=== PATIENT | female | born 1970 | race Caucasian/White ===

== ENCOUNTER 2022-11-30 16:57 | Emergency (ER) | payer OTHER, SELFPAY ==
[2022-11-30 17:12] VITALS: BP 126/72; PULSE 74; RESP 16; TEMP 36.7; O2SAT 99; BMI 22.4
--- NOTE | 2022-11-30 19:15 | ED.LOWEXI1 ---
HPI - Extremity Injury (Lower) General Chief Complaint: Extremity Injury, Lower Stated Complaint: POST OP ISSUE LT FOOT Time Seen by Provider: 11/30/22 19:09 Source: patient Mode of arrival: Wheelchair History of Present Illness HPI Narrative: the patient presenting to us with increasing swelling in the left foot for the past few days she mentioned that there was no new injury but she have a history of old fracture and surgery done on that foot, she will plan to have a CAT scan as outpatient but the patient has been having increasing pain and she has not been able to put weight in her foot for the last few days She'll also have some chills and she is complaining of pain in her foot with no other concerns Review of systems positive for nausea that according to the patient happened to be time to have foot pain Related Data Home Medications Medication Instructions Recorded Confirmed alendronate 70 mg tablet 70 mg PO DAILY 11/30/22 11/30/22 cholecalciferol (vitamin D3) 25 3,000 unit PO DAILY 11/30/22 11/30/22 mcg (1,000 unit) capsule escitalopram oxalate 20 mg tablet 20 mg PO DAILY 11/30/22 11/30/22 gabapentin 100 mg capsule 200 mg PO TID 11/30/22 11/30/22 hydroxyzine pamoate 25 mg capsule 25 mg PO Q8H PRN anxiety 11/30/22 11/30/22 meloxicam 15 mg tablet 15 mg PO DAILY 11/30/22 11/30/22 pregabalin 100 mg capsule 100 mg PO BID 11/30/22 11/30/22 trazodone 50 mg tablet 50 mg PO .hs 11/30/22 11/30/22 Previous Rx's Medication Instructions Recorded meloxicam 15 mg tablet 15 mg PO DAILY PRN pain #10 tabs 11/30/22 sulfamethoxazole 800 1 tab PO BID 14 days #28 tabs 11/30/22 mg-trimethoprim 160 mg tablet (Bactrim DS) Allergies Allergy/AdvReac Type Severity Reaction Status Date / Time Penicillins Allergy Severe Verified 11/30/22 17:11 Review of Systems ROS Status of ROS 10 or more systems reviewed and unremarkable except as noted in history and below Exam Narrative Exam Narrative: Nurses notes and vital signs reviewed and patient is not hypoxic. General: Well-appearing and in no apparent distress. Skin: Warm, dry, no pallor noted. No rash. Head: Normocephalic, atraumatic. Neck: Supple, non-tender. Eye: Pupils are equal, round and EOMI. No scleral icterus. Ears, Nose, Mouth, and Throat: TM are clear, no nasal mucosal hypertrophy. Oral mucosa is moist, no posterior oropharynx erythema, uvula is mid-line Cardiovascular: Regular Rate and Rhythm without murmur, gallop or rub. Respiratory: No accessory muscle use or respiratory distress. Lungs are clear to auscultation, no wheezing, rales or rhonchi Chest Wall: no tenderness Back: No midline thoracic or lumbar vertebral tenderness. No CVA tenderness Musculoskeletal: normal ROM,the patient have swelling in the medial aspect of the left foot and the scar at the 1st metatarsal bone that showing no redness or hotness but there is significant swelling medially and there is no opening except for the scar that is healing there's tenderness on palpation the patient have a normal Refill in the foot and no vascular injury GI: Abdomen is soft, non-distended. Normal bowel sounds. No masses appreciated. No tenderness to palpation. No rebound, guarding, or rigidity noted. Neurological: A&O x4. No cranial nerve dysfunction observed. No truncal ataxia. Moves all extremities. Sensation intact. Psychiatric: Cooperative and interactive. Normal mood and affect. Constitutional Vital Signs - 24 hr 11/30/22 17:12 Temperature 98.0 F Pulse Rate [Monitor] 74 Respiratory Rate 16 Blood Pressure [Right Arm] 126/72 H Pulse Oximetry 99 Oxygen Delivery Method Room Air Course Vital Signs Vital signs: Vital Signs Temperature 98.0 F 11/30/22 17:12 Pulse Rate 74 11/30/22 17:12 Respiratory Rate 16 11/30/22 17:12 Blood Pressure 126/72 H 11/30/22 17:12 Pulse Oximetry 99 11/30/22 17:12 Oxygen Delivery Method Room Air 11/30/22 17:12 Temperature 98.0 F 11/30/22 17:12 Pulse Rate 74 11/30/22 17:12 Respiratory Rate 16 11/30/22 17:12 Blood Pressure 126/72 H 11/30/22 17:12 Pulse Oximetry 99 11/30/22 17:12 Oxygen Delivery Method Room Air 11/30/22 17:12 MDM - Extremity Injury (Lower) MDM Narrative Medical decision making narrative: patient's CBC and chemistry significant pathology there was a concern for possible abscess or cellulitis with the patient presentation and her CT is positive for cellulitis the patient was started on Bactrim She have a history of penicillin ALLERGY She also was provided with crutches in addition to rest and elevation of the left foot with Warner wrap and the Mobic for pain The patient is to followup with primary care physician in next 2-3 days or to return to the emergency department should any of the signs or symptoms worsen or new symptoms develop. The patient agrees with the following Diagnosis and Treatment plan and the patient will be discharged home. Discharge Plan Discharge Chief Complaint: Extremity Injury, Lower Clinical Impression: Cellulitis of foot Time of Disposition Decision: 21:21 Prescriptions / Home Meds: New meloxicam 15 mg tablet 15 mg PO DAILY PRN (Reason: pain) Qty: 10 0RF sulfamethoxazole-trimethoprim [Bactrim DS] 800-160 mg tablet 1 tab PO BID 14 Days Qty: 28 0RF No Action alendronate 70 mg tablet 70 mg PO DAILY cholecalciferol (vitamin D3) 25 mcg (1,000 unit) capsule 3,000 unit PO DAILY escitalopram oxalate 20 mg tablet 20 mg PO DAILY gabapentin 100 mg capsule 200 mg PO TID hydroxyzine pamoate 25 mg capsule 25 mg PO Q8H PRN (Reason: anxiety) meloxicam 15 mg tablet 15 mg PO DAILY pregabalin 100 mg capsule 100 mg PO BID trazodone 50 mg tablet 50 mg PO .hs Instructions: Cellulitis (ED) Stand Alone Forms: Portal Instructions Referrals: CHRISTIN GRULLON [Primary Care Provider] - 1 week
--- NOTE | 2022-11-30 19:17 | CT_ITS ---
The [address] [address] Patient Name: JOSH SOLIS MRN: [id number] date: 1970 Sex: F Assigned Patient Location: ER Current Patient Location: ER Accession/Order Number: [id number] Exam Date: 11/30/2022 19:45 Report Date: 11/30/2022 20:45 At the request of: MARIALUISA BREWER Procedure: CT foot LT wo con EXAM: CT foot LT wo con COMPARISON: 07/21/2022, 07/04/2022. CLINICAL INDICATION: left foot swelling TECHNIQUE: Multiplanar CT images of the left foot without contrast. Dose reduction techniques were achieved by using automated exposure control and/or adjustment of mA and/or kV according to patient size and/or use of iterative reconstruction technique. FINDINGS: Status post prior midfoot/first through third TMT fusion with intact appearing hardware without evidence of complication and with fusion of the second and third TMT joints and partial fusion of the first TMT joint. Osteopenia. No CT evidence of acute osseous abnormality. Partially visualized lucent bony lesion again seen in the distal tibia without definite aggressive features although with apparent chronic cortical loss anteriorly. This appears to possibly relate to chronic postsurgical change and may have been the site of prior hardware which was intervally removed. Mild dorsal foot subcutaneous edema, may suggest cellulitis. No fluid collection. 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 IMPRESSION: No CT evidence of acute osseous abnormality. Mild dorsal foot subcutaneous edema, may suggest cellulitis. No fluid collection. Postsurgical changes described above. Osteopenia. Electronically authenticated by: RUSTY BELL Date: 11/30/2022 20:45
[2022-11-30 19:45] LABS: Basophils Absolute Auto 0.1 10^3/uL (0.0-0.1); Basophils Percent Auto 1.2 % (0.2-2.0); Eosinophils Absolute Auto 0.2 10^3/uL (0.0-0.7); Eosinophils Percent Auto 2.6 % (0.9-7.0); Hematocrit 39.8 % (36.0-48.0); Hemoglobin 13.2 g/dL (12.0-16.0); Immature Granulocytes Abs Auto 0.02 10^3/uL (0.00-0.03); Immature Granulocytes Pct Auto 0.2 % (0.0-0.5); Lymphocytes Absolute Auto 1.7 10^3/uL (1.2-3.8); Lymphocytes Percent Auto 21.1 % (20.5-60.0); Mean Corpuscular HGB Conc 33.2 g/dL (29.9-35.2); Mean Corpuscular Volume 87.5 fL (81.0-99.0); Mean Platelet Volume 9.9 fL (9.5-13.5); Monocytes Absolute Auto 0.7 10^3/uL (0.3-0.8); Monocytes Percent Auto 8.3 % (1.7-12.0); Neutrophils Absolute Auto 5.3 10^3/uL (1.4-6.5); Neutrophils Percent Auto 66.6 % (43.0-75.0); Platelet Count 360 10^3/uL (150-450); Red Blood Count 4.55 10^6/uL (4.20-5.40); Red Cell Distribution Width 13.1 % (11.0-15.0)
[2022-11-30] MEDS: KETOROLAC TROMETHAMINE 30 MG/ML VIAL 15 MG IVP (19:49)
[2022-11-30] MEDS: ONDANSETRON 4 MG RAPDIS TABLET SL (19:49)
[2022-11-30 20:10] LABS: Alanine Aminotransferase 13 U/L (14-59); Albumin Level 3.8 g/dL (3.4-5.0); Alkaline Phosphatase 136 U/L (46-116); Aspartate Amino Transferase 11 U/L (15-37); Bilirubin Total 0.2 mg/dL (0.2-1.0); Calcium 9.4 mg/dL (8.5-10.1); Chloride 104 mmol/L (98-107); Estimated GFR (African America >60 (>=60); Estimated GFR (Non-African Ame >60 (>=60); Globulin 3.8 g/dL; Glucose 95 mg/dL (74-106); Sodium 139 mmol/L (136-145); Total Protein 7.6 g/dL (6.4-8.2)
[2022-11-30] MEDS: SULFAMETHOXAZOLE/TRIMETHOPRIM 800-160 MG TABLET 1 TAB PO (21:53)
== END 2022-11-30 21:59 | disposition home or self-care (01) ==
PROVIDERS: Emergency Provider Emergency Medicine; PCP Family Medicine
DX: L03.116 Cellulitis of left lower limb (principal); Z79.899 Other long term (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
CPT/HCPCS: 36415; 73700; 80053; 85025; 96374; 99284

== ENCOUNTER 2022-12-26 07:40 | Outpatient (OUT) | payer OTHER, SELFPAY ==
--- NOTE | 2022-12-26 08:02 | ECG_ITS ---
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
--- NOTE | 2022-12-26 08:31 | XR_ITS ---
The [address] [address] Patient Name: JOSH SOLIS MRN: [id number] date: 1970 Sex: F Assigned Patient Location: [facility] Current Patient Location: [facility] Accession/Order Number: [id number] Exam Date: 12/26/2022 08:43 Report Date: 12/26/2022 09:05 At the request of: CINDY RODRIGEZ Procedure: XR chest 2V Exam: Radiographs: XR chest 2V Reason for exam: COPD Comparison: Chest x-ray dated 02/04/2020 IMPRESSION: Right apical and upper lung small amount scarring. Hyperinflation both lungs with possible emphysema. Remainder of the chest is unremarkable. Electronically authenticated by: ANTONIO FORD Date: 12/26/2022 09:05
--- NOTE | 2022-12-26 08:51 | P.GSHP_ITS ---
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 Please see HPI from Dr. Clark dated 12/09/2022. Review of Systems ROS Narrative REVIEW OF SYSTEMS: Negative except as stated in HPI, ten or more systems reviewed. Constitutional: No fever , chills, weakness ENT: No sore throat or epistaxis Cardiovascular: No edema, chest pain, or palpitations Respiratory: Admits to dyspnea on exertion Gastrointestinal: No abdominal pain, constipation, diarrhea, or vomiting Genitourinary: No dysuria or hematuria Neurological: No numbness, tingling, weakness, or headache Psychiatric: No mood changes [facility] Medical History (Updated 12/26/22 @ 08:44 by Indigo Erazo NP) (2007) (2007) Surgical History (Updated 12/26/22 @ 08:25 by Indigo Erazo NP) Family History (Updated 12/26/22 @ 08:25 by Indigo Erazo NP) Other Family history of diabetes mellitus Social History (Updated 12/26/22 @ 08:21 by Indigo Erazo NP) Within the past year, how often did you have a drink containing alcohol: never Score interpretation: A score less than 3 is consistent with normal alcohol consumption. Smoking status: Current every day smoker What tobacco products do you use: cigarettes Pack-years instructions: Please document either packs per day or cigarettes per day in order for pack years to calculate correctly. If using both packs per day and cigarettes per day, please make sure that they denote the same thing. If they differ, pack- years will calculate based on packs per day. Packs Per Day Cigarettes Per Day 1/4 of a pack 5 1/2 a pack 10 3/4 of a pack 15 1 pack 20 1.5 pack 30 2 packs 40 2.5 packs 50 3 packs 60 Packs per day: 1 Years smoked: 24 Smoking pack-years: 24.00 Non-prescribed substance use: denies use Highest level of school completed/degree received: high school graduate Meds Home Medications and Allergies Home Medications Medication Instructions Recorded Confirmed Type alendronate 70 mg tablet 70 mg PO QWEEK 11/30/22 12/26/22 History cholecalciferol (vitamin D3) 25 3,000 unit PO DAILY 11/30/22 12/26/22 History mcg (1,000 unit) capsule escitalopram oxalate 20 mg tablet 20 mg PO DAILY 11/30/22 12/26/22 History hydroxyzine pamoate 25 mg capsule 25 mg PO Q8H PRN anxiety 11/30/22 12/26/22 History meloxicam 15 mg tablet 15 mg PO DAILY 11/30/22 12/26/22 History pregabalin 100 mg capsule 100 mg PO BID 11/30/22 12/26/22 History trazodone 50 mg tablet 50 mg PO .hs 11/30/22 12/26/22 History Allergies Allergy/AdvReac Type Severity Reaction Status Date / Time Penicillins Allergy Severe Unknown Verified 12/26/22 08:18 Exam Narrative Exam Narrative: Constitutional: Awake, alert, comfortable, well-appearing, nontoxic, interactive, vital signs as charted Head: Normocephalic, atraumatic Neck: Supple, normal appearance, normal range of motion, no meningeal signs, no lymphadenopathy Respiratory: No respiratory distress, breath sounds clear Cardiovascular: Regular rate and rhythm, strong and regular heart tones Psychiatric: Oriented ?3, normal affect Assessment and Plan Assessment and Plan (1) Arthritis of left foot: (2) Pseudarthrosis after fusion or arthrodesis: Plan Excision of left 1st tarsometatarsal joint nonunion with removal of hardware and revision of fusion scheduled with Dr. Clark 01/01/2023.
== END 2022-12-26 07:41 | disposition home or self-care (01) ==
LOC: PST 07:40
PROVIDERS: PCP Family Medicine; Visit Provider Podiatrist Foot & Ankle Surgery
DX: Z01.818 Encounter for other preprocedural examination (principal); Z01.810 Encounter for preprocedural cardiovascular examination; Z01.811 Encounter for preprocedural respiratory examination; M19.072 Primary osteoarthritis, left ankle and foot; M96.0 Pseudarthrosis after fusion or arthrodesis; J44.9 Chronic obstructive pulmonary disease, unspecified
CPT/HCPCS: 71046; 93005; G0463

== ENCOUNTER 2023-01-01 07:42 | Day surgery (SDC) | payer OTHER, SELFPAY ==
[2022-12-26 08:22] VITALS: BP 114/73; PULSE 60; RESP 16; TEMP 36.2; O2SAT 98; BMI 23.2
[2023-01-01] VITALS (16 sets, daily range): BP systolic 102–132; BP diastolic 60–79; PULSE 61–80; RESP 16–24; TEMP 36–36.9; O2SAT 91–99; BMI 22.8; BMI 23.5
[2023-01-01 07:51] LABS: Basophils Absolute Auto 0.1 10^3/uL (0.0-0.1); Basophils Percent Auto 0.9 % (0.2-2.0); Eosinophils Absolute Auto 0.2 10^3/uL (0.0-0.7); Eosinophils Percent Auto 2.3 % (0.9-7.0); Hematocrit 41.1 % (36.0-48.0); Hemoglobin 13.9 g/dL (12.0-16.0); Immature Granulocytes Abs Auto 0.03 10^3/uL (0.00-0.03); Immature Granulocytes Pct Auto 0.3 % (0.0-0.5); Lymphocytes Percent Auto 19.9 % (20.5-60.0); Mean Corpuscular HGB Conc 33.8 g/dL (29.9-35.2); Mean Corpuscular Hemoglobin 30.3 pg (26.7-34.0); Mean Corpuscular Volume 89.5 fL (81.0-99.0); Mean Platelet Volume 9.8 fL (9.5-13.5); Monocytes Absolute Auto 0.8 10^3/uL (0.3-0.8); Monocytes Percent Auto 8.1 % (1.7-12.0); Neutrophils Absolute Auto 6.8 10^3/uL (1.4-6.5); Neutrophils Percent Auto 68.5 % (43.0-75.0); Platelet Count 336 10^3/uL (150-450); Red Blood Count 4.59 10^6/uL (4.20-5.40); Red Cell Distribution Width 13.6 % (11.0-15.0); White Blood Count 9.9 10^3/uL (4.0-11.0)
[2023-01-01 08:00] LABS: Glucometer 102 mg/dL (74-106)
[2023-01-01] MEDS: LACTATED RINGER'S SOLUTION 1,000 ML 50 ML IV (08:16)
--- NOTE | 2023-01-01 09:53 | PC.NURSE ---
time out completed as documented. 2L O2 via nasal cannula applied per policy,pt then positioned per anesthesia. saphineous block began 937 and was completed at 943 pt then repositioned and popliteal block began at 944 and ended at 949. pt tolerated procedure well,vitals monitored throughout procedure and will be monitored until taken back to the OR. bed in lowest position with siderails up and call light within reach.
[2023-01-01] MEDS: PREGABALIN 75 MG CAPSULE 150 MG PO (10:08)
[2023-01-01] MEDS: CLINDAMYCIN PHOSPHATE/D5W 900 MG/50 ML PIGGYBACK 100 MG IV (10:55)
--- NOTE | 2023-01-01 12:13 | XR_ITS ---
The [address] [address] Patient Name: JOSH SOLIS MRN: [id number] date: 1970 Sex: F Assigned Patient Location: [facility] Current Patient Location: [facility] Accession/Order Number: [id number] Exam Date: 01/01/2023 12:13 Report Date: 01/01/2023 14:24 At the request of: CINDY RODRIGEZ Procedure: XR foot LT 2V PROCEDURE: XR foot LT 2V HISTORY: LEFT 1ST TMJ REMOVAL OF HARDWARE COMPARISON: XR foot left 07/21/2022 FINDINGS: BONES:Removal and replacement of 2 screws fixing the first tarsal-metatarsal joint. Previously placed screw securing the second third tarsal-metatarsal joints. SOFT TISSUES:Expected intraoperative findings. EFFUSION:None visible. OTHER: Negative. XR/XR foot LT 2V IMPRESSION: 1. Revision of first tarsal-metatarsal joint hardware. Electronically authenticated by: HUNG ARREDONDO Date: 01/01/2023 14:24
[2023-01-01 13:27] LABS: Glucometer 134 mg/dL (74-106)
--- NOTE | 2023-01-01 13:35 | PC.NURSE ---
pATIENT ALERT AND AWAKE. DENIES ANY PAIN. TOES ARE PINK AND WARM , BUT PATIENT CAN NOT FEEL THEM
--- NOTE | 2023-01-01 13:47 | XR_ITS ---
The [address] [address] Patient Name: JOSH SOLIS MRN: [id number] date: 1970 Sex: F Assigned Patient Location: [facility] Current Patient Location: [facility] Accession/Order Number: [id number] Exam Date: 01/01/2023 13:40 Report Date: 01/01/2023 14:22 At the request of: ANTONIO HERRERA Procedure: XR foot LT min 3V PROCEDURE: XR foot LT min 3V HISTORY: POST-OP ; hardware removal COMPARISON: XR foot left 07/21/2022 FINDINGS: BONES:Interval removal and replacement of the 2 screws fixing the first tarsal-metatarsal joint. Stable fusion of the second third tarsal-metatarsal joints. SOFT TISSUES:No visible soft tissue swelling. EFFUSION:None visible. OTHER: Images were obtained through cast material which limits evaluation. XR/XR foot LT min 3V IMPRESSION: 1. Revision of first tarsal-metatarsal joint hardware. Electronically authenticated by: HUNG ARREDONDO Date: 01/01/2023 14:22
--- NOTE | 2023-01-01 13:47 | P.ORON_ITS ---
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 Bone was significantly soft. No signs of infection PROCEDURE IN DETAIL: Patient was identified in pre op and consent was reviewed. Correct side and site were identified and marked. Pre-op antibiotics were started. Patient was brought to OR suite and place on table in a supine position. General anesthesia was administered. Tourniquet applied. Operative extremity was prepped and draped in usual sterile fashion. Formal time-out was performed and the foot/ankle were exsanguinated and tourniquet inflated. Incision was placed over the medial aspect of the 1st Tarsometatarsal joint. Combination sharp and blunt dissection gained access to the 1st tarsometatarsal joint. The two screws traversing the joint were removed with appropriate screwdriver. The joint was then accessed utilizing an osteotome to break a small area of bone over the dorsal aspect that was bridging. Once this small shelf of bone was removed the joint was then easily distracted noting intra-articular fibrous and fatty tissue with no further osseous fusion. All nonviable tissue was excised. Then the joint was prepared with osteotomes and rongeurs and curettes. 2 mL of bone allograft (sparc) packed into the joint. The joint was th en manually compressed and a guidewire was placed from plantar medial base of the 1st metatarsal into the cuneiforms. With attempt to place a 5.0 mm (vilex) screw the cortex of the metatarsal fractured so the guidewire and screw were removed. A new guidewire was placed from the dorsal medial aspect crossing the 1st tarsometatarsal joint into the cuneiforms while holding manual compression. A 5.0 mm (Vilex) headless cannulated screw was placed accordingly noted significant compression across the joint. Then a guidewire was placed from the dorsal medial aspect of the medial cuneiform traversing the joint and extending through the plantar lateral cortex of the 1st metatarsal base. Guidewires were placed under fluoroscopic guidance as was screw fixation. After fluoroscopy confirmed proper placement of the wire a 4.0 mm ([employer]) headless cannulated screw was placed accordingly spanning the joint to add additional stability. An additional 1 cc of bone allograft was packed into the hole created from the 1st screw placed after the surgical site was irrigated. Fluoroscopy again confirmed good bony apposition of the 1st tarsometatarsal joint and proper hardware placement/location. Incisions were closed in layers. in the tourniquet was dropped with a prompt hyperemic response. A dry sterile dressing consisting of Xeroform on the incisions followed by 4 x 4 gauze, ABDs, and Kerlix were applied. Multiple layers of cast padding were then applied to ensure all bony prominences were well-padded. A plaster posterior splint was then applied which was held in place by Warner wraps. Capillary refill time to all digits was evaluated and had appropriate response. POSTOPERATIVE PLAN: Transfer to med/surg under hospitalist's care NWB operative foot/ankle Ice and elevation Maria Victoria-op antibiotics, multimodal pain medication and DVT prophylaxis ordered Consults: physical therapy & social staff worker Estimated LOS 1-2 nights Will follow *NWB x 6-8 weeks Implants: see above Anesthesia: other (general & regional) Surgeon: Erik Clark Rag Room Supervisor: Speedy Brooks Estimated blood loss (mL): 10 Pathology: none sent Condition: stable Disposition: observation Preoperative Details Reason for procedure: patient is a 52-year-old female well known to my practice who underwent left midfoot fusion on 02/13/22. Subsequently she went hardware removal on 07/21/22. She continued to have pain which in part was secondary to nerve pain around the surgical sites and fibromyalgia but was having deep aching pain predominantly in the medial midfoot. 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 Given the fact that she was unable to bear weight comfortably she wished to proceed with surgical revision and I recommended excision of the nonunion removal of retained hardware and fusion of the 1st tarsometatarsal joint. She was educated on potential complications particularly infection and wound given this is her 3rd surgery within one year in the same location as well as nonunion/delayed union given the amount of disuse osteoporosis noted on x-ray and CT scan. Patient provided consent.
[2023-01-01] MEDS: ENOXAPARIN SODIUM 40 MG/0.4 ML SYRINGE SUBQ (17:32)
[2023-01-01] MEDS: 0.9 % SODIUM CHLORIDE 250 ML 10 ML IV (17:32)
[2023-01-01] MEDS: CLINDAMYCIN PHOSPHATE/D5W 600 MG/50 ML PIGGYBACK 100 MG IV (20:54)
[2023-01-01] MEDS: TRAZODONE HCL 50 MG TABLET PO (21:50)
[2023-01-02] MEDS: CLINDAMYCIN PHOSPHATE/D5W 600 MG/50 ML PIGGYBACK 100 MG IV ×2 (04:03→12:03)
[2023-01-02 06:00] VITALS: BP 108/64; PULSE 64; RESP 18; TEMP 36.6; O2SAT 93
[2023-01-02 06:21] VITALS: TEMP 36.6
[2023-01-02] MEDS: OXYCODONE HCL 5 MG TABLET 10 MG PO (06:21)
[2023-01-02 08:00] VITALS: RESP 18
--- NOTE | 2023-01-02 08:50 | CM.NOTE ---
Rounds made with Dr. Coreas, discussed discharge to home today with pt. PT will evaluate pt today and will follow for any discharge needs.
--- NOTE | 2023-01-02 09:12 | P.PN_ITS ---
Progress Note: Subjective Subjective Interval history: Asked to see patient for medical management. No complaints this morning. No chest pain no shortness of breath. Exam Constitutional Vital Signs, click to edit/add: Last Vital Signs Temp 97.8 F 01/02/23 06:21 Pulse 64 01/02/23 06:00 Resp 18 01/02/23 06:00 BP 108/64 01/02/23 06:00 Pulse Ox 93 L 01/02/23 06:00 O2 Del Method Room Air 01/02/23 06:00 Chest Common normals: inspection of chest normal Respiratory Common normals: normal respiratory effort, no retractions and clear to auscultation bilaterally Cardio Common normals: regular rate, regular rhythm and no murmurs GI Common normals: Normal to inspection, nondistended, normoactive bowel sounds present Progress Note: A&P Assessment and Plan (1) Arthritis of left foot: (2) Cellulitis of foot: Plan Podiatric surgery-see progress notes from cow rider Generalized anxiety-we will continue with home medications.
[2023-01-02] MEDS: ESCITALOPRAM 10 MG TABLET 20 MG PO (09:58)
[2023-01-02] MEDS: CHOLECALCIFEROL (VITAMIN D3) 25 MCG/1,000 UNITS TABLET 75 MCG PO (09:59)
[2023-01-02] MEDS: PREGABALIN 100 MG CAPSULE PO (09:59)
[2023-01-02] MEDS: MELOXICAM 7.5 MG TABLET 15 MG PO (09:59)
--- NOTE | 2023-01-02 10:07 | SWNOTE1 ---
SW met with pt to discuss dc needs. Pt lives at home with her . Pt had foot surgery she is NWB for 6-8 weeks. Pt does not have any stairs to go up and down. Pt has a walker, knee scooter, and bedside commode at home. Pt did voice she has been able to pivot while here at hospital. Pt does not have any concerns or needs for discharge at this time. SW to follow as needed.
[2023-01-02] MEDS: OXYCODONE HCL 15 MG TABLET PO (12:03)
--- NOTE | 2023-01-02 12:12 | PM.PN ---
Progress Note: Subjective Subjective Interval history: POD 1 s/p left 1st TMT fusion revision secondary to nonunion. Block has worn off and patient having minimal pain. She is requesting d/c. Denies n/v/f/c/sob/cp/calf pain Exam Narrative Exam Narrative: splint c/d/i able to wiggle toes LTS intact to toes No calf pain on squeeze Constitutional Vital Signs, click to edit/add: Last Vital Signs Temp 97.8 F 01/02/23 06:21 Pulse 64 01/02/23 06:00 Resp 18 01/02/23 08:00 BP 108/64 01/02/23 06:00 Pulse Ox 93 L 01/02/23 06:00 O2 Del Method Room Air 01/02/23 06:00 Progress Note: Objective Pulse Oximetry Attestation: I have reviewed the pertinent pulse oximetry results. Progress Note: A&P Assessment and Plan (1) Arthritis of left foot: Plan d/c home today NWB left foot f/u in my office next week prescriptions in chart for controlled medicine while noncontrolled medications sent to pharmacy
--- NOTE | 2023-01-02 14:13 | PC.NURSE ---
Per Dr. Clark and Dr. Coreas, patient is ready for discharge. Patient is being sent home with paper prescriptions of Lyrica and [place]. Patient voiced concerned about not going with a prescription for Lovenox. I attempted to page Dr. Clark and have not got a response. Patient is aware and states she will call his office Thursday.
== END 2023-01-02 14:15 | disposition home or self-care (01) ==
LOC: SURGOUT 09:16 → MS 14:38
PROVIDERS: Anesthesiology; PCP Family Medicine; Visit Provider Podiatrist Foot & Ankle Surgery
PROC: (CPT 1480; principal; 2023-01-01 09:30)
DX: M19.072 Primary osteoarthritis, left ankle and foot (principal); M96.0 Pseudarthrosis after fusion or arthrodesis; T84.84XA Pain due to internal orthopedic prosthetic devices, implants and grafts, initial encounter; M81.8 Other osteoporosis without current pathological fracture; M79.7 Fibromyalgia; F17.210 Nicotine dependence, cigarettes, uncomplicated; Z79.899 Other long term (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; F41.1 Generalized anxiety disorder
CPT/HCPCS: 20680; 28320; 28740; 36415; 64445; 64450; 73620; 73630; 76000; 76942; 82948; 85025; 96365; 96366; 97161; C1713; J2704

== ENCOUNTER 2023-01-02 17:59 | Emergency (ER) | payer OTHER, SELFPAY ==
[2023-01-02 18:19] VITALS: BP 119/68; PULSE 61; RESP 20; TEMP 36.7; O2SAT 98; BMI 233.1
--- NOTE | 2023-01-02 21:30 | ED.EXTPRO1 ---
HPI - Extremity Problem General Chief complaint: Extremity Problem, Nontraumatic Stated complaint: POST COMPLETION SURGERY Time Seen by Provider: 01/02/23 21:23 Source: patient Mode of arrival: Wheelchair Limitations: no limitations History of Present Illness HPI Narrative: patient discharged from hospital earlier today after admission for surgery left foot. s/p fusion 1st TMT. Patient discharged home. Her block wearing off. She took pain medication at home and states it is not controlling her pain and now returns because of pain. Still has some numbness of the foot but improved sensation as block wears off but worsening pain. No fever, nausea or systemic symptoms Related Data Home Medications Medication Instructions Recorded Confirmed alendronate 70 mg tablet 70 mg PO QWEEK 11/30/22 01/01/23 cholecalciferol (vitamin D3) 25 3,000 unit PO DAILY 11/30/22 01/01/23 mcg (1,000 unit) capsule escitalopram oxalate 20 mg tablet 20 mg PO DAILY 11/30/22 01/01/23 hydroxyzine pamoate 25 mg capsule 25 mg PO Q8H PRN anxiety 11/30/22 01/01/23 meloxicam 15 mg tablet 15 mg PO DAILY 11/30/22 01/01/23 pregabalin 100 mg capsule 100 mg PO BID 11/30/22 01/01/23 trazodone 50 mg tablet 50 mg PO .hs 11/30/22 01/01/23 Allergies Allergy/AdvReac Type Severity Reaction Status Date / Time Penicillins Allergy Severe Unknown Verified 12/26/22 08:18 Review of Systems ROS Status of ROS 10 or more systems reviewed and unremarkable except as noted in history and below [facility] Medical History (Updated 01/02/23 @ 23:17 by Osiel Blount MD) (2007) (2007) Surgical History (Updated 12/26/22 @ 08:25 by Indigo Erazo NP) Family History (Updated 12/26/22 @ 08:25 by Indigo Erazo NP) Other Family history of diabetes mellitus Social History (Updated 01/01/23 @ 08:27 by Kalyani Manuel) Within the past year, how often did you have a drink containing alcohol: never Score interpretation: A score less than 3 is consistent with normal alcohol consumption. Smoking status: Current every day smoker What tobacco products do you use: cigarettes Pack-years instructions: Please document either packs per day or cigarettes per day in order for pack years to calculate correctly. If using both packs per day and cigarettes per day, please make sure that they denote the same thing. If they differ, pack-years will calculate based on packs per day. Packs Per Day Cigarettes Per Day 1/4 of a pack 5 1/2 a pack 10 3/4 of a pack 15 1 pack 20 1.5 pack 30 2 packs 40 2.5 packs 50 3 packs 60 Packs per day: 1 Years smoked: 24 Smoking pack-years: 24.00 Non-prescribed substance use: denies use Highest level of school completed/degree received: high school graduate Exam Constitutional Vital Signs, click to edit/add: Last Vital Signs Temp 98.1 F 01/02/23 18:19 Pulse 61 01/02/23 18:19 Resp 20 01/02/23 18:19 BP 119/68 01/02/23 18:19 Pulse Ox 98 01/02/23 18:19 Common normals: no apparent distress, average body habitus and oriented x3 HENMT Common normals: normocephalic, head/scalp atraumatic and hearing grossly normal bilaterally Eye Common normals: EOMs intact bilaterally and conjunctivae normal Respiratory Common normals: normal respiratory effort, no retractions, no use of accessory muscles and clear to auscultation bilaterally Cardio Common normals: regular rate, regular rhythm, S1 normal heart sound and S2 normal heart sound Extremity Other: cast Left ankle/foot. Toes exposed and have good color and sensation to light touch. Neuro Common normals: oriented x3, CN's II-XII intact bilaterally, moves all extremities and no focal motor deficits Course Vital Signs Vital signs: Vital Signs Temperature 98.1 F 01/02/23 18:19 Pulse Rate 61 01/02/23 18:19 Respiratory Rate 20 01/02/23 18:19 Blood Pressure 119/68 01/02/23 18:19 Pulse Oximetry 98 01/02/23 18:19 Temperature 98.1 F 01/02/23 18:19 Pulse Rate 61 01/02/23 18:19 Respiratory Rate 20 01/02/23 18:19 Blood Pressure 119/68 01/02/23 18:19 Pulse Oximetry 98 01/02/23 18:19 MDM - Extremity (Nontraumatic) MDM Narrative Medical decision making narrative: patient discharged from hospital earlier today after metatarsal fusion left foot. Her block is wearing off and now she is in pain. Prescribed norco which is not controlling her pain. Basic labs WNL. N/V status left foot/toes WNL. Patient treated with one dose of dilaudid 0.5mg and had significant relief of her pain. Discharged home with a prescription for percocet and is to follow up with her Surgeon early next week Lab Data Labs: Lab Results 01/02/23 Range/Units 21:45 WBC 11.3 H (4.0-11.0) 10^3/uL RBC 4.43 (4.20-5.40) 10^6/uL Hgb 13.3 (12.0-16.0) g/dL Hct 39.6 (36.0-48.0) % MCV 89.4 (81.0-99.0) fL MCH 30.0 (26.7-34.0) pg MCHC 33.6 (29.9-35.2) g/dL RDW 13.8 (11.0-15.0) % Plt Count 301 (150-450) 10^3/uL MPV 10.3 (9.5-13.5) fL Neut % (Auto) 70.5 (43.0-75.0) % Lymph % (Auto) 19.5 L (20.5-60.0) % Hitchcock % (Auto) 8.6 (1.7-12.0) % Eos % (Auto) 0.5 L (0.9-7.0) % Baso % (Auto) 0.5 (0.2-2.0) % Neut # (Auto) 7.9 H (1.4-6.5) 10^3/uL Lymph # (Auto) 2.2 (1.2-3.8) 10^3/uL Hitchcock # (Auto) 1.0 H (0.3-0.8) 10^3/uL Eos # (Auto) 0.1 (0.0-0.7) 10^3/uL Baso # (Auto) 0.1 (0.0-0.1) 10^3/uL Abs Immat Gran (auto) 0.05 H (0.00-0.03) 10^3/uL Imm/Tot Granulo (auto) 0.4 (0.0-0.5) % Sodium 142 (136-145) mmol/L Potassium 3.2 L (3.5-5.1) mmol/L Chloride 107 (98-107) mmol/L Carbon Dioxide 28.1 (21.0-32.0) mmol/L Anion Gap 10.1 BUN 11.0 (7.0-18.0) mg/dL Creatinine 0.88 (0.55-1.02) mg/dL Est GFR ( Amer) >60 (>=60) Est GFR (Non-Af Amer) >60 (>=60) BUN/Creatinine Ratio 12.5 Glucose 95 (74-106) mg/dL Calcium 8.7 (8.5-10.1) mg/dL Discharge Plan Discharge Chief Complaint: Extremity Problem, Nontraumatic Clinical Impression: Postoperative pain of extremity Patient Disposition: Home, Self-Care Prescriptions / Home Meds: No Action alendronate 70 mg tablet 70 mg PO QWEEK cholecalciferol (vitamin D3) 25 mcg (1,000 unit) capsule 3,000 unit PO DAILY escitalopram oxalate 20 mg tablet 20 mg PO DAILY hydroxyzine pamoate 25 mg capsule 25 mg PO Q8H PRN (Reason: anxiety) meloxicam 15 mg tablet 15 mg PO DAILY pregabalin 100 mg capsule 100 mg PO BID trazodone 50 mg tablet 50 mg PO .hs Instructions: ORIPankaj (ERIN) Additional Instructions: follow up with your surgeon thursday Stand Alone Forms: Portal Instructions Referrals: CHRISTIN GRULLON [Primary Care Provider] - 1 week
[2023-01-02] MEDS: HYDROMORPHONE HCL 0.5 MG/0.5 ML SYRINGE IV (22:00)
[2023-01-02 22:06] LABS: Basophils Absolute Auto 0.1 10^3/uL (0.0-0.1); Basophils Percent Auto 0.5 % (0.2-2.0); Eosinophils Absolute Auto 0.1 10^3/uL (0.0-0.7); Eosinophils Percent Auto 0.5 % (0.9-7.0); Hematocrit 39.6 % (36.0-48.0); Hemoglobin 13.3 g/dL (12.0-16.0); Immature Granulocytes Abs Auto 0.05 10^3/uL (0.00-0.03); Immature Granulocytes Pct Auto 0.4 % (0.0-0.5); Lymphocytes Absolute Auto 2.2 10^3/uL (1.2-3.8); Lymphocytes Percent Auto 19.5 % (20.5-60.0); Mean Corpuscular HGB Conc 33.6 g/dL (29.9-35.2); Mean Corpuscular Volume 89.4 fL (81.0-99.0); Mean Platelet Volume 10.3 fL (9.5-13.5); Monocytes Percent Auto 8.6 % (1.7-12.0); Neutrophils Absolute Auto 7.9 10^3/uL (1.4-6.5); Neutrophils Percent Auto 70.5 % (43.0-75.0); Platelet Count 301 10^3/uL (150-450); Red Blood Count 4.43 10^6/uL (4.20-5.40); Red Cell Distribution Width 13.8 % (11.0-15.0); White Blood Count 11.3 10^3/uL (4.0-11.0)
[2023-01-02 22:29] LABS: Anion Gap 10.1; BUN Creatinine Ratio 12.5; Calcium 8.7 mg/dL (8.5-10.1); Carbon Dioxide 28.1 mmol/L (21.0-32.0); Chloride 107 mmol/L (98-107); Estimated GFR (African America >60 (>=60); Estimated GFR (Non-African Ame >60 (>=60); Glucose 95 mg/dL (74-106); Potassium 3.2 mmol/L (3.5-5.1); Sodium 142 mmol/L (136-145)
== END 2023-01-02 23:37 | disposition home or self-care (01) ==
PROVIDERS: Emergency Provider Internal Medicine; PCP Family Medicine
DX: G89.18 Other acute postprocedural pain (principal); M79.672 Pain in left foot; Z79.899 Other long term (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; F17.210 Nicotine dependence, cigarettes, uncomplicated; Z98.1 Arthrodesis status
CPT/HCPCS: 36415; 80048; 85025; 96374; 99284; J1170

== ENCOUNTER 2023-01-22 13:19 | Outpatient (OUT) | payer OTHER, SELFPAY ==
--- NOTE | 2023-01-22 13:34 | XR_ITS ---
The [address] [address] Patient Name: JOSH SOLIS MRN: [id number] date: 1970 Sex: F Assigned Patient Location: [facility] Current Patient Location: Accession/Order Number: [id number] Exam Date: 01/22/2023 13:34 Report Date: 01/23/2023 07:51 At the request of: CORWIN HANLEY Procedure: XR foot LT min 3V PROCEDURE: XR foot LT min 3V COMPARISON: 01/01/2023 HISTORY: RIGHT FOOT PAIN FINDINGS: BONES:Stable tarsometatarsal joint effusion with 4 cannulated screws involving the first, second and fourth tarsometatarsal joints. Bone graft placement at the first metatarsal-phalangeal joint. Lucency in the distal tibia from bone graft harvesting. No acute fracture, dislocation or mechanical failure. Mild permeative pattern suggest osteopenia SOFT TISSUES:Negative. No visible soft tissue swelling. EFFUSION:None visible. OTHER: Negative. XR/XR foot LT min 3V IMPRESSION: Stable midfoot forefoot fusion Electronically authenticated by: STERLING THOMAS Date: 01/23/2023 07:51
== END 2023-01-22 13:20 | disposition home or self-care (01) ==
LOC: RAD 13:19
PROVIDERS: PCP Family Medicine; Visit Provider Physician Assistant
DX: M79.672 Pain in left foot (principal); Z98.1 Arthrodesis status
CPT/HCPCS: 73630

== ENCOUNTER 2023-02-13 10:59 | Outpatient (OUT) | payer OTHER, SELFPAY ==
--- NOTE | 2023-02-13 | XR_ITS ---
The [address] [address] Patient Name: JOSH SOLIS MRN: [id number] date: 1970 Sex: F Assigned Patient Location: [facility] Current Patient Location: [facility] Accession/Order Number: [id number] Exam Date: 02/13/2023 11:00 Report Date: 02/13/2023 15:10 At the request of: CORWIN HANLEY Procedure: XR foot LT min 3V EXAM: XR foot LT min 3V HISTORY: LEFT FOOT PAIN COMPARISON: Left foot radiographs from 01/22/2023 TECHNIQUE: AP, lateral, oblique, radiographs of the foot labeled FINDINGS: No acute fracture or dislocation. Demineralization. Postsurgical changes of the foot with surgical screw fixation at the first, second, and third tarsometatarsal joints. No metallic fracture. No evidence of loosening. Near-anatomic alignment. There is calcification noted at about the first proximal phalanx base likely related to bone graft placement. XR/XR foot LT min 3V IMPRESSION: Postsurgical changes of the midfoot fusion without evidence of complication. Electronically authenticated by: DAJA LUCAS Date: 02/13/2023 15:10
== END 2023-02-13 11:00 | disposition home or self-care (01) ==
LOC: RAD 10:59
PROVIDERS: PCP Family Medicine; Visit Provider Physician Assistant
DX: M79.672 Pain in left foot (principal)
CPT/HCPCS: 73630

== ENCOUNTER 2023-03-07 17:03 | Emergency (ER) | payer OTHER, SELFPAY ==
[2023-03-07] VITALS (32 sets, daily range): BP systolic 118–168; BP diastolic 67–96; PULSE 58–79; RESP 4–30; O2SAT 96–100; BMI 22.6
--- NOTE | 2023-03-07 17:04 | XR_ITS ---
The [address] [address] Patient Name: JOSH SOLIS MRN: [id number] date: 1970 Sex: F Assigned Patient Location: ED.MAIN Current Patient Location: ER Accession/Order Number: [id number] Exam Date: 03/07/2023 18:20 Report Date: 03/07/2023 18:52 At the request of: DUGLAS BRANNON Procedure: XR chest 1V EXAM: XR chest 1V HISTORY: cva COMPARISON: None. TECHNIQUE: Chest X-ray AP, 1 view FINDINGS: Support devices: None. Lungs/pleura: Right apical pleural thickening and parenchymal scarring. Bilateral emphysema. No effusion, or pneumothorax. Heart and mediastinum: Normal contours. Bones: No acute abnormality identified. XR/XR chest 1V Impression: Right apical pleural thickening and parenchymal scarring. Bilateral emphysema. No effusion, or pneumothorax. No mediastinal widening. Electronically authenticated by: LU LEMUS Date: 03/07/2023 18:52
--- NOTE | 2023-03-07 17:04 | ECG_ITS ---
The [facility] Test Date: 2023-03-07 Pat Name: JOSH SOLIS Department: Room: - Gender: Female Utilization Coordinator: : 1970 Requested By: [id number] Order Number: [id number] Reading MD: JOSE ESTRADA Measurements Intervals Randall Rate: 67 P: 60 VT: 198 QRS: 49 QRSD: 78 T: 50 QT: 416 QTc: 432 Interpretive Statements 1100 Sinus rhythm 9110 normal ECG Compared to ECG 12/26/2022 08:12:29 Sinus bradycardia no longer present First degree AV block no longer present Electronically Signed On 03-09-2023 13:08:31 EDT by JOSE ESTRADA
--- NOTE | 2023-03-07 17:04 | CT_ITS ---
The [address] [address] Patient Name: JOSH SOLIS MRN: [id number] date: 1970 Sex: F Assigned Patient Location: ED.MAIN Current Patient Location: Accession/Order Number: [id number] Exam Date: 03/07/2023 17:20 Report Date: 03/07/2023 19:06 At the request of: DUGLAS BRANNON Procedure: CT angio head EXAMINATION: CT angio head, CT angio neck HISTORY: cva Acute right-sided facial droop. COMPARISON: Head CT same date. Axial CT images were then obtained through the head and neck after the administration of intravenous contrast utilizing a CT angiogram protocol. Coronal and sagittal maximum intensity projection (MIPS) images were also obtained. Dose reduction techniques were achieved by using: automated exposure control and/or adjustment of mA and /or kV according to patient size and/or use of iterative reconstruction technique. FINDINGS: CTA NECK: No stenosis of the origins of the great vessels. The carotid bulbs are normal. No stenosis by NASCET criteria. Large caliber right vertebral artery. Diffusely small caliber left vertebral artery. No stenosis. CTA HEAD: Flow in all major intracranial arteries without large vessel occlusion. No intracranial aneurysms or vascular malformations. Scarring in the right lung apex. CT/CT angio head IMPRESSION: 1. No flow limiting stenosis or occlusion of the major intracranial arteries. 2. No stenosis of the extracranial arterial circulation. Critical results were NOTIFIED by TELEPHONE BY Dr. Leslie Tam to Duglas brannon At 03/07/2023 6:16 PM EDT. Electronically authenticated by: LESLIE TAM Date: 03/07/2023 19:06
--- NOTE | 2023-03-07 17:04 | CT_ITS ---
The [address] [address] Patient Name: JOSH SOLIS MRN: [id number] date: 1970 Sex: F Assigned Patient Location: ED.MAIN Current Patient Location: Accession/Order Number: [id number] Exam Date: 03/07/2023 17:20 Report Date: 03/07/2023 18:26 At the request of: DUGLAS BRANNON Procedure: CT stroke head/brain wo con EXAMINATION: CT stroke head/brain wo con HISTORY: cva acute right-sided facial droop. COMPARISON: None. TECHNIQUE: CT head without contrast. Dose reduction techniques were achieved by using: automated exposure control and/or adjustment of mA and /or kV according to patient size and/or use of iterative reconstruction technique. FINDINGS: Significant degradation of image quality secondary to beam hardening artifact. The ventricles and sulci are within normal limits in size and configuration for age. There is no evidence for acute intracranial hemorrhage. There are no foci of abnormal parenchymal attenuation. There is no mass effect or midline shift. There are no abnormal extraaxial fluid collections. FINDINGS: Negative for acute intracranial hemorrhage. No convincing acute intracranial process. There is artifact which degrades image quality. Critical results were NOTIFIED by TELEPHONE BY Dr. Leslie Vaughan to Duglas terese At 03/07/2023 6:16 PM EDT. Electronically authenticated by: LESLIE VAUGHAN Date: 03/07/2023 18:26
--- NOTE | 2023-03-07 17:04 | CT_ITS ---
The [address] [address] Patient Name: JOSH SOLIS MRN: [id number] date: 1970 Sex: F Assigned Patient Location: ED.MAIN Current Patient Location: Accession/Order Number: [id number] Exam Date: 03/07/2023 17:20 Report Date: 03/07/2023 19:06 At the request of: DUGLAS BRANNON Procedure: CT angio neck EXAMINATION: CT angio head, CT angio neck HISTORY: cva Acute right-sided facial droop. COMPARISON: Head CT same date. Axial CT images were then obtained through the head and neck after the administration of intravenous contrast utilizing a CT angiogram protocol. Coronal and sagittal maximum intensity projection (MIPS) images were also obtained. Dose reduction techniques were achieved by using: automated exposure control and/or adjustment of mA and /or kV according to patient size and/or use of iterative reconstruction technique. FINDINGS: CTA NECK: No stenosis of the origins of the great vessels. The carotid bulbs are normal. No stenosis by NASCET criteria. Large caliber right vertebral artery. Diffusely small caliber left vertebral artery. No stenosis. CTA HEAD: Flow in all major intracranial arteries without large vessel occlusion. No intracranial aneurysms or vascular malformations. Scarring in the right lung apex. CT/CT angio neck IMPRESSION: 1. No flow limiting stenosis or occlusion of the major intracranial arteries. 2. No stenosis of the extracranial arterial circulation. Critical results were NOTIFIED by TELEPHONE BY Dr. Leslie Tam to Duglas brannon At 03/07/2023 6:16 PM EDT. Electronically authenticated by: LESLIE TAM Date: 03/07/2023 19:06
--- NOTE | 2023-03-07 17:10 | ED.NEUROSD1 ---
HPI - Neuro Symptoms/Deficit General Chief Complaint: Neuro Symptoms/Deficit Stated Complaint: CVA TIME OF DROOP 1630 Time Seen by Provider: 03/07/23 17:04 History of Present Illness HPI Narrative: Patient is a 52-year-old female presents to the emergency department for the evaluation of strokelike symptoms that began at 2 PM per her best guess. She reports a frontal headache with associated blurred vision that began three hours ago. She denies any falls or injuries. She denies any unilateral weakness or numbness. She reports feeling shaky all over. She states approximately one hour ago she developed drooping of the right side of her face and mild dysarthria. She is not on blood thinners. She denies any history of CVA. She states she is more short of breath since her symptoms began, she is noted to be hyperventilating. She has no chest pain. No recent illness. Related Data Home Medications Medication Instructions Recorded Confirmed alendronate 70 mg tablet 70 mg PO QWEEK 11/30/22 03/07/23 cholecalciferol (vitamin D3) 25 3,000 unit PO DAILY 11/30/22 03/07/23 mcg (1,000 unit) capsule escitalopram oxalate 20 mg tablet 20 mg PO DAILY 11/30/22 03/07/23 hydroxyzine pamoate 25 mg capsule 25 mg PO Q8H PRN anxiety 11/30/22 03/07/23 meloxicam 15 mg tablet 15 mg PO DAILY 11/30/22 03/07/23 pregabalin 100 mg capsule 100 mg PO BID 11/30/22 03/07/23 trazodone 50 mg tablet 50 mg PO .hs 11/30/22 03/07/23 bupropion HCl 150 mg 24 hr tablet, mg PO 03/07/23 extended release pregabalin 150 mg capsule 150 mg PO Q12H 03/07/23 03/07/23 Previous Rx's Medication Instructions Recorded diphenhydramine HCl 25 mg capsule 25 mg PO Q8H PRN headache #12 caps 03/07/23 (Benadryl) methylprednisolone 4 mg tablets in See Rx Instructions .Route 03/07/23 a dose pack (Medrol (Clarence)) .COMPLEX #21 ea metoclopramide HCl 10 mg tablet 10 mg PO Q6H PRN nausea and 03/07/23 (Reglan) vomiting #12 tabs Allergies Allergy/AdvReac Type Severity Reaction Status Date / Time Penicillins Allergy Severe Unknown Verified 12/26/22 08:18 Review of Systems ROS Constitutional Denies: fever or chills Cardiovascular Denies: chest pain Respiratory Denies: shortness of breath Gastrointestinal Denies: nausea or vomiting Musculoskeletal Denies: back pain Integumentary/Breast Denies: rash Neurological Reports: headache; Denies: numbness in extremities or weakness in extremities Endocrine Denies: excessive urination Hematologic/Lymphatic Denies: easy bruising Allergic/Immunologic Denies: hives [facility] Medical History (Updated 03/07/23 @ 20:30 by ROSALIA Garcia) (2007) (2007) Surgical History (Updated 12/26/22 @ 08:25 by Indigo Erazo NP) Family History (Updated 12/26/22 @ 08:25 by Indigo Erazo NP) Other Family history of diabetes mellitus Social History Within the past year, how often did you have a drink containing alcohol: never Score interpretation: A score less than 3 is consistent with normal alcohol consumption. Smoking status: Current every day smoker What tobacco products do you use: cigarettes Pack-years instructions: Please document either packs per day or cigarettes per day in order for pack years to calculate correctly. If using both packs per day and cigarettes per day, please make sure that they denote the same thing. If they differ, pack-years will calculate based on packs per day. Packs Per Day Cigarettes Per Day 1/4 of a pack 5 1/2 a pack 10 3/4 of a pack 15 1 pack 20 1.5 pack 30 2 packs 40 2.5 packs 50 3 packs 60 Packs per day: 1 Years smoked: 24 Smoking pack-years: 24.00 Non-prescribed substance use: denies use Highest level of school completed/degree received: high school graduate Exam Narrative Exam Narrative: Gen.: Awake, alert, in no distress Head: Normocephalic, atraumatic ENT: Moist mucous membranes; drooping of the right corner of the mouth, no significant dysarthria noted Respiratory: No respiratory distress, lungs clear bilaterally Cardio: Regular rate and rhythm Extremities: Moves extremities equally, postop boot noted to the left foot and ankle Psych: Normal mood and affect Neuro: Drooping of the right corner of the mouth, patient is unable to lift either of her legs; NIH stroke scale 9 for facial drooping with mild dysarthria, patient unable to lift either of her legs with limited ataxia of the lower legs due to effort Skin: Warm, dry, intact Constitutional Vital Signs, click to edit/add: Last Vital Signs Pulse 62 03/07/23 19:20 Resp 20 03/07/23 19:20 BP 130/75 03/07/23 19:15 Pulse Ox 98 03/07/23 19:20 O2 Del Method Nasal Cannula 03/07/23 17:15 O2 Flow Rate 2 03/07/23 17:15 Course Vital Signs Vital signs: Vital Signs Pulse Rate 74 03/07/23 17:06 Respiratory Rate 18 03/07/23 17:06 Blood Pressure 168/96 H 03/07/23 17:06 Pulse Oximetry 97 03/07/23 17:06 Oxygen Delivery Method Room Air 03/07/23 17:06 Pulse Rate 62 03/07/23 19:20 Respiratory Rate 20 03/07/23 19:20 Blood Pressure 130/75 03/07/23 19:15 Pulse Oximetry 98 03/07/23 19:20 Oxygen Delivery Method Nasal Cannula 03/07/23 17:15 Oxygen Delivery Flow Rate 2 03/07/23 17:15 MDM - Neuro Symptoms/Deficit MDM Narrative Medical decision making narrative: Immediately on arrival to the emergency department, patient was placed in an exam room, EKG and cardiac monitoring were placed and an IV was established. She was found to have an NIH stroke scale of nine for her facial drooping and mild dysarthria, as well as peripheral weakness that was symmetric in the lower extremities. Noncontrast CT of the brain as well as CT angiogram of the head/neck were reviewed by the radiologist as well as by the stroke interventional list at [facility], Dr. Shah. These studies do not show any evidence of acute neurological process or blood vessel occlusion. I discussed the case with him at 1815, and he related based on the patient's clinical presentation and nonfocal exam, we should treat her headache and if symptoms resolved, she could be safely discharged home with neurology follow-up. If symptoms persist, patient should be admitted for an MRI. Patient was reevaluated by attending physician, patient and significant other are in agreement with this treatment plan. Patient was given IV fluids, Reglan, Benadryl, Toradol with improvement, and additional Solu-Medrol and magnesium were given with significant improvement of the patient's headache. She feels as though her facial drooping and speech changes have improved and are resolved at this time. Her significant other is in agreement with this. On reevaluation, I do not note any facial drooping or dysarthria and the patient is resting comfortably, smiling. Vital signs remain within normal limits. Patient and her are in agreement with treatment plan to be discharged home with symptomatic medication for headache. She prefers outpatient treatment. She is given referrals for local neurologic groups that she can follow-up with an was instructed to return to the emergency department if symptoms change or worsen. Medical Records Attestation: I reviewed the patient's medical records. Lab Data Attestation: I reviewed the patient's lab results. Labs: Lab Results 03/07/23 03/07/23 Range/Units 17:18 17:53 WBC 8.4 (4.0-11.0) 10^3/uL RBC 4.23 (4.20-5.40) 10^6/uL Hgb 13.1 (12.0-16.0) g/dL Hct 38.2 (36.0-48.0) % MCV 90.3 (81.0-99.0) fL MCH 31.0 (26.7-34.0) pg MCHC 34.3 (29.9-35.2) g/dL RDW 13.2 (11.0-15.0) % Plt Count 347 (150-450) 10^3/uL MPV 10.3 (9.5-13.5) fL Neut % (Auto) 65.2 (43.0-75.0) % Lymph % (Auto) 21.6 (20.5-60.0) % Darke % (Auto) 9.6 (1.7-12.0) % Eos % (Auto) 2.3 (0.9-7.0) % Baso % (Auto) 1.1 (0.2-2.0) % Neut # (Auto) 5.5 (1.4-6.5) 10^3/uL Lymph # (Auto) 1.8 (1.2-3.8) 10^3/uL Darke # (Auto) 0.8 (0.3-0.8) 10^3/uL Eos # (Auto) 0.2 (0.0-0.7) 10^3/uL Baso # (Auto) 0.1 (0.0-0.1) 10^3/uL Abs Immat Gran (auto) 0.02 (0.00-0.03) 10^3/uL Imm/Tot Granulo (auto) 0.2 (0.0-0.5) % PT 9.8 (9.0-11.6) sec INR <0.93 APTT 31.0 (22.3-36.2) sec Sodium 139 (136-145) mmol/L Potassium 3.8 (3.5-5.1) mmol/L Chloride 105 (98-107) mmol/L Carbon Dioxide 26.8 (21.0-32.0) mmol/L Anion Gap 11.0 BUN 5.0 L (7.0-18.0) mg/dL Creatinine 0.95 (0.55-1.02) mg/dL Est GFR ( Amer) >60 (>=60) Est GFR (Non-Af Amer) >60 (>=60) BUN/Creatinine Ratio 5.3 Glucose 86 (74-106) mg/dL Calcium 9.2 (8.5-10.1) mg/dL Total Bilirubin 0.2 (0.2-1.0) mg/dL AST 13 L (15-37) U/L ALT 16 (14-59) U/L Alkaline Phosphatase 118 H (46-116) U/L Troponin I High Sens <4.0 L (4.0-51.3) pg/mL Total Protein 7.2 (6.4-8.2) g/dL Albumin 3.8 (3.4-5.0) g/dL Globulin 3.4 g/dL Albumin/Globulin Ratio 1.1 POC Glucose 112 H (74-106) mg/dL Imaging Data CT scan - head: Attestation: I have reviewed the pertinent imaging results. Radiologist's impression: Procedure: CT stroke head/brain wo con EXAMINATION: CT stroke head/brain wo con HISTORY: cva acute right-sided facial droop. COMPARISON: None. TECHNIQUE: CT head without contrast. Dose reduction techniques were achieved by using: automated exposure control and/or adjustment of mA and /or kV according to patient size and/or use of iterative reconstruction technique. FINDINGS: Significant degradation of image quality secondary to beam hardening artifact. The ventricles and sulci are within normal limits in size and configuration for age. There is no evidence for acute intracranial hemorrhage. There are no foci of abnormal parenchymal attenuation. There is no mass effect or midline shift. There are no abnormal extraaxial fluid collections. FINDINGS: Negative for acute intracranial hemorrhage. No convincing acute intracranial process. There is artifact which degrades image quality. Critical results were NOTIFIED by TELEPHONE BY Dr. Leslie Tam to Cate gudino At 03/07/2023 6:16 PM EDT. Electronically authenticated by: LESLIE TAM Date: 03/07/2023 18:26 Procedure: CT angio head EXAMINATION: CT angio head, CT angio neck HISTORY: cva Acute right-sided facial droop. COMPARISON: Head CT same date. Axial CT images were then obtained through the head and neck after the administration of intravenous contrast utilizing a CT angiogram protocol. Coronal and sagittal maximum intensity projection (MIPS) images were also obtained. Dose reduction techniques were achieved by using: automated exposure control and/or adjustment of mA and /or kV according to patient size and/or use of iterative reconstruction technique. FINDINGS: CTA NECK: No stenosis of the origins of the great vessels. The carotid bulbs are normal. No stenosis by NASCET criteria. Large caliber right vertebral artery. Diffusely small caliber left vertebral artery. No stenosis. CTA HEAD: Flow in all major intracranial arteries without large vessel occlusion. No intracranial aneurysms or vascular malformations. Scarring in the right lung apex. IMPRESSION: 1. No flow limiting stenosis or occlusion of the major intracranial arteries. 2. No stenosis of the extracranial arterial circulation. Critical results were NOTIFIED by TELEPHONE BY Dr. Leslie Tam to Cate gudino At 03/07/2023 6:16 PM EDT. Electronically authenticated by: LESLIE TAM Date: 03/07/2023 19:06 Chest x-ray: Attestation: I have reviewed the pertinent imaging results. Radiologist's impression: Procedure: XR chest 1V EXAM: XR chest 1V HISTORY: cva COMPARISON: None. TECHNIQUE: Chest X-ray AP, 1 view FINDINGS: Support devices: None. Lungs/pleura: Right apical pleural thickening and parenchymal scarring. Bilateral emphysema. No effusion, or pneumothorax. Heart and mediastinum: Normal contours. Bones: No acute abnormality identified. Impression: Right apical pleural thickening and parenchymal scarring. Bilateral emphysema. No effusion, or pneumothorax. No mediastinal widening. Electronically authenticated by: LU LEMUS Date: 03/07/2023 18:52 ECG Data Attestation: I personally reviewed and interpreted this ECG as follows: (Normal sinus rhythm at a rate of sixty-seven, no acute ST elevation or ectopy. EKG reviewed by attending physician) ECG interpretation date: 03/07/23 ECG interpretation time: 17:17 Discharge Plan Discharge Chief Complaint: Neuro Symptoms/Deficit Clinical Impression: Atypical migraine Patient Disposition: Home, Self-Care Time of Disposition Decision: 20:25 Condition: Good Prescriptions / Home Meds: New methylprednisolone [Medrol (Clarence)] 4 mg tablets,dose pack See Rx Instructions .ROUTE .COMPLEX Qty: 21 0RF Rx Instructions: Taper as directed metoclopramide HCl [Reglan] 10 mg tablet 10 mg PO Q6H PRN (Reason: nausea and vomiting) Qty: 12 0RF Rx Instructions: Can be taken for headache; take with benadryl for headache symptoms diphenhydramine HCl [Benadryl] 25 mg capsule 25 mg PO Q8H PRN (Reason: headache) Qty: 12 0RF Rx Instructions: To be taken with reglan for headache No Action alendronate 70 mg tablet 70 mg PO QWEEK cholecalciferol (vitamin D3) 25 mcg (1,000 unit) capsule 3,000 unit PO DAILY escitalopram oxalate 20 mg tablet 20 mg PO DAILY hydroxyzine pamoate 25 mg capsule 25 mg PO Q8H PRN (Reason: anxiety) Hold Instructions: Order Change meloxicam 15 mg tablet 15 mg PO DAILY pregabalin 100 mg capsule 100 mg PO BID trazodone 50 mg tablet 50 mg PO .hs bupropion HCl 150 mg tablet extended release 24 hr PO Hold Instructions: Order Change pregabalin 150 mg capsule 150 mg PO Q12H Instructions: Acute Headache (ED) Additional Instructions: [facility] ([place]) - [phone]; [facility] ([place]) [phone] Stand Alone Forms: Portal Instructions Referrals: CHRISTIN GRULLON [Primary Care Provider] - 1 week
[2023-03-07 17:41] LABS: Basophils Absolute Auto 0.1 10^3/uL (0.0-0.1); Basophils Percent Auto 1.1 % (0.2-2.0); Eosinophils Absolute Auto 0.2 10^3/uL (0.0-0.7); Eosinophils Percent Auto 2.3 % (0.9-7.0); Hematocrit 38.2 % (36.0-48.0); Hemoglobin 13.1 g/dL (12.0-16.0); Immature Granulocytes Abs Auto 0.02 10^3/uL (0.00-0.03); Immature Granulocytes Pct Auto 0.2 % (0.0-0.5); Lymphocytes Absolute Auto 1.8 10^3/uL (1.2-3.8); Lymphocytes Percent Auto 21.6 % (20.5-60.0); Mean Corpuscular HGB Conc 34.3 g/dL (29.9-35.2); Mean Corpuscular Volume 90.3 fL (81.0-99.0); Mean Platelet Volume 10.3 fL (9.5-13.5); Monocytes Absolute Auto 0.8 10^3/uL (0.3-0.8); Monocytes Percent Auto 9.6 % (1.7-12.0); Neutrophils Absolute Auto 5.5 10^3/uL (1.4-6.5); Neutrophils Percent Auto 65.2 % (43.0-75.0); Platelet Count 347 10^3/uL (150-450); Red Blood Count 4.23 10^6/uL (4.20-5.40); Red Cell Distribution Width 13.2 % (11.0-15.0); White Blood Count 8.4 10^3/uL (4.0-11.0)
[2023-03-07 17:55] LABS: Prothrombin Time 9.8 sec (9.0-11.6)
[2023-03-07 17:56] LABS: INR <0.93
[2023-03-07 17:57] LABS: Alanine Aminotransferase 16 U/L (14-59); Albumin Globulin Ratio 1.1; Albumin Level 3.8 g/dL (3.4-5.0); Alkaline Phosphatase 118 U/L (46-116); Aspartate Amino Transferase 13 U/L (15-37); BUN Creatinine Ratio 5.3; Bilirubin Total 0.2 mg/dL (0.2-1.0); Calcium 9.2 mg/dL (8.5-10.1); Carbon Dioxide 26.8 mmol/L (21.0-32.0); Chloride 105 mmol/L (98-107); Estimated GFR (African America >60 (>=60); Estimated GFR (Non-African Ame >60 (>=60); Globulin 3.4 g/dL; Glucose 86 mg/dL (74-106); Potassium 3.8 mmol/L (3.5-5.1); Sodium 139 mmol/L (136-145); Total Protein 7.2 g/dL (6.4-8.2); Troponin I High Sensitivity <4.0 pg/mL (4.0-51.3)
[2023-03-07 17:57] LABS: Glucometer 112 mg/dL (74-106)
[2023-03-07] MEDS: KETOROLAC TROMETHAMINE 30 MG/ML VIAL IVP (18:25)
[2023-03-07] MEDS: DIPHENHYDRAMINE HCL 50 MG/ML (1ML) VIAL 25 MG IV (18:25)
[2023-03-07] MEDS: METOCLOPRAMIDE HCL 10 MG/2 ML VIAL INJ (18:26)
[2023-03-07] MEDS: 0.9 % SODIUM CHLORIDE 1,000 ML 1000 ML IV (18:27)
[2023-03-07] MEDS: METHYLPREDNISOLONE SOD SUCC PF 125 MG/2 ML VIAL IVP (19:36)
== END 2023-03-07 21:03 | disposition home or self-care (01) ==
PROVIDERS: Physician Assistant; Emergency Provider Emergency Medicine Emergency Medical Services; PCP Family Medicine
DX: G43.909 Migraine, unspecified, not intractable, without status migrainosus (principal); F17.210 Nicotine dependence, cigarettes, uncomplicated; Z79.899 Other long term (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
CPT/HCPCS: 36415; 70450; 70496; 70498; 71045; 80053; 84484; 85025; 85610; 85730; 93005; 96372; 96374; 96375; 99285; J2930; Q9967

== ENCOUNTER 2023-05-06 13:58 | Outpatient (OUT) | payer OTHER, SELFPAY ==
--- NOTE | 2023-05-06 | XR_ITS ---
The [address] [address] Patient Name: JOSH SOLIS MRN: [id number] date: 1970 Sex: F Assigned Patient Location: [facility] Current Patient Location: [facility] Accession/Order Number: [id number] Exam Date: 05/06/2023 15:05 Report Date: 05/06/2023 20:18 At the request of: CINDY RODRIGEZ Procedure: XR foot LT min 3V EXAM: XR foot LT min 3V HISTORY: LEFT FOOT SX F/U COMPARISON: 02/13/2023 TECHNIQUE: 3 views of left foot were obtained. FINDINGS: Multiple surgical changes are again noted, with a fusion procedure at the first, second and third tarsometatarsal joints. There is complete osseous fusion at the third tarsometatarsal joint and significant ongoing changes with slightly incomplete fusion at the first and second tarsometatarsal joints. There is narrowing of the first metatarsophalangeal joint. Remainder the joint spaces are intact. Diffuse osteopenia is noted. XR/XR foot LT min 3V IMPRESSION: No acute fracture or dislocation. Diffuse osteopenia is noted. Postsurgical changes are present. There has been a small amount of progressive osseous fusion at the first and second tarsometatarsal joints. The overall appearance otherwise unchanged. Electronically authenticated by: CINDY BADILLO Date: 05/06/2023 20:18
== END 2023-05-06 13:59 | disposition home or self-care (01) ==
LOC: RAD 13:58
PROVIDERS: PCP Family Medicine; Visit Provider Podiatrist Foot & Ankle Surgery
DX: M79.672 Pain in left foot (principal); M85.872 Other specified disorders of bone density and structure, left ankle and foot
CPT/HCPCS: 73630

== ENCOUNTER 2023-05-19 12:43 | Outpatient (OUT) | payer OTHER, SELFPAY ==
--- NOTE | 2023-05-19 12:51 | CT_ITS ---
The [address] [address] Patient Name: JOSH SOLIS MRN: [id number] date: 1970 Sex: F Assigned Patient Location: CT Current Patient Location: CT Accession/Order Number: [id number] Exam Date: 05/19/2023 13:10 Report Date: 05/19/2023 16:19 At the request of: CINDY RODRIGEZ Procedure: CT ankle LT wo con EXAM: CT ankle LT wo con HISTORY: Midfoot Fusion Of Left Foot COMPARISON: X-rays 05/06/2023 TECHNIQUE: Axial CT imaging is performed. Sagittal and coronal reformatted reconstructed sequences were additionally performed FINDINGS: IMPRESSION: The patient has undergone first, second and third tarsometatarsal screw fixation. The internal hardware exhibits no fracture. The first tarsometatarsal articulation is still visualized with no osseous incorporation (sagittal 65). The second tarsometatarsal articulation exhibits central osseous incorporation (sagittal 49). Similarly, there is only central osseous incorporation of the third tarsometatarsal articulation (sagittal 39). The second tarsometatarsal screw head is prominent from the dorsal cortex approximately 3.93 mm (sagittal 42). No visualized fracture, dislocation, subluxation or osseous lesion. Global decreased osseous mineralization. The bone graft harvest site of the distal tibia exhibits no osseous incorporation (sagittal 50 and axial 32). The remainder of the visualized joint spaces are unremarkable. Electronically authenticated by: STERLING BEAN Date: 05/19/2023 16:19
== END 2023-05-19 12:44 | disposition home or self-care (01) ==
LOC: CT 12:43
PROVIDERS: PCP Family Medicine; Visit Provider Podiatrist Foot & Ankle Surgery
DX: Z98.1 Arthrodesis status (principal)
CPT/HCPCS: 73700

== ENCOUNTER 2023-09-09 13:05 | Outpatient (OUT) | payer OTHER, SELFPAY ==
--- NOTE | 2023-09-09 | XR_ITS ---
The [address] [address] Patient Name: JOSH SOLIS MRN: [id number] date: 1970 Sex: F Assigned Patient Location: Current Patient Location: Accession/Order Number: [id number] Exam Date: 09/09/2023 13:13 Report Date: 09/10/2023 07:05 At the request of: CINDY RODRIGEZ Procedure: XR foot LT min 3V PROCEDURE: XR foot LT min 3V HISTORY: LEFT FOOT PAIN COMPARISON: XR foot left 05/06/2023 FINDINGS: BONES:Prior fusion of first, second, third tarsal-metatarsal joints via multiple lag screws; no appreciable hardware fracture loosening. No bone fracture dislocation. Chronic degenerative changes the midfoot. SOFT TISSUES:No visible soft tissue swelling. EFFUSION:None visible. OTHER: Negative. XR/XR foot LT min 3V IMPRESSION: 1. Stable surgical changes without evidence of hardware failure or change in alignment. Electronically authenticated by: HUNG ARREDONDO Date: 09/10/2023 07:05
--- OUTSIDE RECORDS SUMMARY | 2023-09-09 13:19 | XMS_ITS | CCD ---
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 activity/volume] in Serum or PlasmaOrdered By: Isiah Purcell on 06-01-2023 ALT [Catalytic activity/Vol] 6 U/L 7-52 [facility] Albumin [Mass/volume] in Ser um or Plasma by Bromocresol green (BCG) dye binding methoOrdered By: Isiah Purcell on 06-01-2023 Albumin BCG dye [Mass/Vol] 4.2 g/dL 3.5-5.7 [facility] Alkaline phosphatase [Enzyma tic activity/volume] in Serum or PlasmaOrdered By: Isiah Purcell on 06-01-2023 ALP [Catalytic activity/Vol] 123 U/L 34-104 [facility] Aspartate aminotransferase [ Enzymatic activity/volume] in Serum or PlasmaOrdered By: Isiah Purcell on 06-01-2023 AST [Catalytic activity/Vol] 10 U/L 13-39 [facility] Basophils Auto (Bld) [#/Vol] Ordered By: Isiah Purcell on 06-01-2023 Basophils (Bld) [#/Vol] 0.1 10*3/uL 0.0-0.2 [facility] Basophils/100 WBC Auto (Bld) Ordered By: Isiah Purcell on 06-01-2023 Basophils/100 WBC (Bld) 1.4 % . [facility] Bilirubin.total [Mass/volume ] in Serum or PlasmaOrdered By: Isiah Purcell on 06-01-2023 Bilirubin [Mass/Vol] 0.3 mg/dL 0.3-1.0 [facility] CMP with reflex to A1Con Albumin [Mass/Vol] 4.2 g/dL Normal 3.5-5.7 [facility] Comment on above: Performed By: #### C MP wRFX A1C, CBC #### [facility] [address] Albumin/Globulin [Mass ratio] 1.8 {ratio} Normal [facility] Comment on above: Performed By: #### C MP wRFX A1C, CBC #### [facility] [address] ALP [Catalytic activity/Vol] 123 U/L High 34-104 [facility] Comment on above: Result Comment: PERF ORMED BY: [place] [address] PATHOLOGIST JET MECHANIC CARLOTTA OLSEN M.D. Performed By: #### C MP wRFX A1C, CBC #### [facility] [address] [place] [address] [place] ALT [Catalytic activity/Vol] 6 U/L Low 7-52 [facility] Comment on above: Performed By: #### C MP wRFX A1C, CBC #### [facility] [address] [place] [id number] [place] Anion gap [Moles/Vol] 10.2 mmol/L Normal 6.0-15.0 [facility] Comment on above: Performed By: #### C MP wRFX A1C, CBC #### [facility] [address] AST [Catalytic activity/Vol] 10 U/L Low 13-39 [facility] Comment on above: Performed By: #### C MP wRFX A1C, CBC #### [facility] [address] Bilirubin [Mass/Vol] 0.3 mg/dL Normal 0.3-1.0 [facility] Comment on above: Performed By: #### C MP wRFX A1C, CBC #### [facility] [address] [place] [address] Calcium [Mass/Vol] 9.6 mg/dL Normal 8.6-10.3 [facility] Comment on above: Performed By: #### C MP wRFX A1C, CBC #### [facility] [address] [place] [address] Chloride [Moles/Vol] 105 mmol/L Normal 98-107 [facility] Comment on above: Performed By: #### C MP wRFX A1C, CBC #### [address] CO2 [Moles/Vol] 29.0 mmol/L Normal 21.0-31.0 [facility] Comment on above: Performed By: #### C MP wRFX A1C, CBC #### [facility] [address] [place] [address] Creatinine [Mass/Vol] 0.84 mg/dL Normal 0.60-1.20 [facility] Comment on above: Performed By: #### C MP wRFX A1C, CBC #### [facility] [address] [place] [address] [place] GFR/1.73 sq M.predicted MDRD (S/P/Bld) [Vol rate/Area] mL/min/{1.73_m2} Normal [facility] Comment on above: Performed By: #### C MP wRFX A1C, CBC #### [facility] [address] [place] [address] [place] Globulin (S) [Mass/Vol] 2.4 g/dL Normal [facility] Comment on above: Performed By: #### C MP wRFX A1C, CBC #### [facility] [address] [place] [id number] [facility] Glucose [Mass/Vol] 77 mg/dL Normal 70-100 [facility] Comment on above: Performed By: #### C MP wRFX A1C, CBC #### [facility] [address] [place] [id number] [facility] Potassium [Moles/Vol] 4.2 mmol/L Normal 3.5-5.1 [facility] Comment on above: Performed By: #### C MP wRFX A1C, CBC #### [facility] [address] [place] [id number] [facility] Protein [Mass/Vol] 6.6 g/dL Normal 6.4-8.9 [facility] Comment on above: Performed By: #### C MP wRFX A1C, CBC #### [facility] [address] [place] [id number] [place] Sodium [Moles/Vol] 140 mmol/L Normal 136-145 [facility] Comment on above: Performed By: #### C MP wRFX A1C, CBC #### [facility] [address] [place] [id number] [place] Urea nitrogen [Mass/Vol] 7 mg/dL Normal 7-25 [facility] Comment on above: Performed By: #### C MP wRFX A1C, CBC #### [facility] [address] [place] [id number] [place] Calcium [Mass/volume] in Ser um or PlasmaOrdered By: Isiah Purcell on 06-01-2023 Calcium [Mass/Vol] 9.6 mg/dL 8.6-10.3 [facility] Carbon dioxide, total [Moles /volume] in Serum or PlasmaOrdered By: Isiah Purcell on 06-01-2023 CO2 [Moles/Vol] 29.0 mmol/L 21.0-31.0 [facility] Chloride [Moles/volume] in S migue or PlasmaOrdered By: Isiah Purcell on 06-01-2023 Chloride [Moles/Vol] 105 mmol/L 98-107 [facility] Complete Blood Count Auto Di ffon 06-01-2023 Basophils (Bld) [#/Vol] 0.1 10*3/uL Normal 0.0-0.2 [facility] Comment on above: Result Comment: PERF ORMED BY: [place] [address] PATHOLOGIST J[employer] CARLOTTA OLSEN M.D. Performed By: #### C MP wRFX A1C, CBC #### [facility] [address] Basophils/100 WBC (Bld) 1.4 % Normal . [facility] Comment on above: Performed By: #### C MP wRFX A1C, CBC #### [facility] [address] Eosinophils (Bld) [#/Vol] 0.1 10*3/uL Normal 0.0-0.45 [facility] Comment on above: Performed By: #### C MP wRFX A1C, CBC #### [address] Eosinophils/100 WBC (Bld) 1.8 % Normal . [facility] Comment on above: Performed By: #### C MP wRFX A1C, CBC #### [facility] [address] [place] [address] Erythrocyte distribution width (RBC) [Ratio] 13.4 % Normal 11.9-15.3 [facility] Comment on above: Performed By: #### C MP wRFX A1C, CBC #### [facility] [address] Hematocrit (Bld) [Volume fraction] 40.1 % Normal 34.0-46.4 [facility] Comment on above: Performed By: #### C MP wRFX A1C, CBC #### [address] [address] [place] Hemoglobin (Bld) [Mass/Vol] 13.7 g/dL Normal 11.8-15.4 [facility] Comment on above: Performed By: #### C MP wRFX A1C, CBC #### [facility] [address] Lymphocytes (Bld) [#/Vol] 1.5 10*3/uL Normal 1.00-4.8 [facility] Comment on above: Performed By: #### C MP wRFX A1C, CBC #### [address] Lymphocytes/100 WBC (Bld) 20.3 % Normal . [facility] Comment on above: Performed By: #### C MP wRFX A1C, CBC #### [address] MCH (RBC) [Entitic mass] 30.3 pg Normal 24.7-34.3 [facility] Comment on above: Performed By: #### C MP wRFX A1C, CBC #### [address] MCV (RBC) [Entitic vol] 88.8 fL Normal 80-100 [facility] Comment on above: Performed By: #### C MP wRFX A1C, CBC #### [address] Mean Corpuscular HGB Conc 34.1 g/dL Normal 32.0-35.0 [facility] Comment on above: Performed By: #### C MP wRFX A1C, CBC #### [place] [address] [place] Monocytes (Bld) [#/Vol] 0.6 10*3/uL Normal 0.0-0.8 [facility] Comment on above: Performed By: #### C MP wRFX A1C, CBC #### [address] Monocytes/100 WBC (Bld) 8.7 % Normal . [facility] Comment on above: Performed By: #### C MP wRFX A1C, CBC #### [facility] [address] Neutrophils (Bld) [#/Vol] 5.0 10*3/uL Normal 1.8-7.7 [facility] Comment on above: Performed By: #### C MP wRFX A1C, CBC #### [facility] [address] [place] [address] Neutrophils/100 WBC (Bld) 67.8 % Normal . [facility] Comment on above: Performed By: #### C MP wRFX A1C, CBC #### [facility] [address] [place] [address] NRBC% 0.0 /100{WBC} Normal 0-0.5 [facility] Comment on above: Performed By: #### C MP wRFX A1C, CBC #### [address] Platelet mean volume (Bld) [Entitic vol] 8.2 fL Normal 6.3-10.7 [facility] Comment on above: Performed By: #### C MP wRFX A1C, CBC #### [place] [address] [place] Platelets (Bld) [#/Vol] 377 10*3/uL Normal 150-450 [facility] Comment on above: Performed By: #### C MP wRFX A1C, CBC #### [address] RBC (Bld) [#/Vol] 4.52 10*6/uL Normal 3.60-5.00 [facility] Comment on above: Performed By: #### C MP wRFX A1C, CBC #### [place] [address] [place] WBC (Bld) [#/Vol] 7.3 10*3/uL Normal 3.8-11.6 [facility] Comment on above: Performed By: #### C MP wRFX A1C, CBC #### [place] [address] [facility] Creatinine [Mass/volume] in Serum or PlasmaOrdered By: Isiah Purcell on 06-01-2023 Creatinine [Mass/Vol] 0.84 mg/dL 0.60-1.20 [facility] ECG 12 lead ECGon 06-01-2023 ECG 12 lead ECG [facility] [place] [address] [place] [id number] Electrocardiograph Report Signed Patient: Karen Solis MR#: [id number] 01 : 1970 Acct:[id number] Age/Sex: 53 / F ADM Date: 06/01/23 Loc: Room: Type: [facility] Attending Dr: Isiah Purcell DO Ordering Provider: Isiah Purcell DO Date of Service: 06/01/2305/14/1537 ECG/ECG 12 lead ECG: Pre op Copies to: Test Reason : Blood Pressure : / mmHG Vent. Rate : 064 BPM Atrial Rate : 064 BPM P-R Int : 198 ms QRS Dur : 078 ms QT Int : 434 ms P-R-T Axes : 059 022 039 degrees QTc Int : 447 ms Normal sinus rhythm Incomplete right bundle branch block Normal ECG When compared with ECG of 27-JUN-2012 18:57, No significant change was found Confirmed by CHRISTIN BROWN MD ([id number]) on 06/01/2023 9:38:57 PM Referred By: WILFREDO Electronically Signed By:CHRISTIN BROWN MD Transcribed By: MUS Signed By Christin Brown MD 2138 Normal [facility] Eosinophils Auto (Bld) [#/Vo l]Ordered By: Isiah Purcell on 06-01-2023 Eosinophils (Bld) [#/Vol] 0.1 10*3/uL 0.0-0.45 [facility] Eosinophils/100 WBC Auto (Bl d)Ordered By: Isiah Purcell on 06-01-2023 Eosinophils/100 WBC (Bld) 1.8 % . [facility] Erythrocyte distribution wid th Auto (RBC) [Ratio]Ordered By: Isiah Purcell on 06-01-2023 Erythrocyte distribution width (RBC) [Ratio] 13.4 % 11.9-15.3 [facility] Globulin Calc (S) [Mass/Vol] Ordered By: Isiah Purcell on 06-01-2023 Globulin (S) [Mass/Vol] 2.4 g/dL [facility] Glucose [Mass/volume] in Ser um or PlasmaOrdered By: Isiah Purcell on 06-01-2023 Glucose [Mass/Vol] 77 mg/dL 70-100 [facility] Hematocrit Auto (Bld) [Volum e fraction]Ordered By: Isiah Purcell on 06-01-2023 Hematocrit (Bld) [Volume fraction] 40.1 % 34.0-46.4 [facility] Hemoglobin [Mass/volume] in BloodOrdered By: Isiah Purcell on 06-01-2023 Hemoglobin (Bld) [Mass/Vol] 13.7 g/dL 11.8-15.4 [facility] Leukocytes [#/volume] correc lizbet for nucleated erythrocytes in Blood by Automated counOrdered By: Isiah Purcell on 06-01-2023 WBC corrected for nucl RBC Auto (Bld) [#/Vol] 7.3 10*3/uL 3.8-11.6 [facility] Lymphocytes Auto (Bld) [#/Vo l]Ordered By: Isiah Purcell on 06-01-2023 Lymphocytes (Bld) [#/Vol] 1.5 10*3/uL 1.00-4.8 [facility] Lymphocytes/100 WBC Auto (Bl d)Ordered By: Isiah Purcell on 06-01-2023 Lymphocytes/100 WBC (Bld) 20.3 % . [facility] MCH Auto (RBC) [Entitic mass ]Ordered By: Isiah Purcell on 06-01-2023 MCH (RBC) [Entitic mass] 30.3 pg 24.7-34.3 [facility] MCHC Auto (RBC) [Mass/Vol]Or dered By: Isiah Purcell on 06-01-2023 MCHC (RBC) [Mass/Vol] 34.1 g/dL 32.0-35.0 [facility] MCV Auto (RBC) [Entitic vol] Ordered By: Isiah Purcell on 06-01-2023 MCV (RBC) [Entitic vol] 88.8 fL 80-100 [facility] Monocytes Auto (Bld) [#/Vol] Ordered By: Isiah Purcell on 06-01-2023 Monocytes (Bld) [#/Vol] 0.6 10*3/uL 0.0-0.8 [facility] Monocytes/100 WBC Auto (Bld) Ordered By: Isiah Purcell on 06-01-2023 Monocytes/100 WBC (Bld) 8.7 % . [facility] Neutrophils Auto (Bld) [#/Vo l]Ordered By: Isiah Purcell on 06-01-2023 Neutrophils (Bld) [#/Vol] 5.0 10*3/uL 1.8-7.7 [facility] Neutrophils/100 WBC Auto (Bl d)Ordered By: Isiah Purcell on 06-01-2023 Neutrophils/100 WBC (Bld) 67.8 % . [facility] No Panel InformationOrdered By: Isiah Purcell on 06-01-2023 Estimated GFR (CKD-EPI) > 60.0 mL/Min [facility] Creatinine Clearance (Chem N/A [facility] Nucleated erythrocytes [Pres ence] in Blood by Automated countOrdered By: Isiah Purcell on 06-01-2023 Nucleated RBC Auto Ql (Bld) 0.0 /100{WBC} 0-0.5 [facility] Platelet mean volume Auto (B ld) [Entitic vol]Ordered By: Isiah Purcell on 06-01-2023 Platelet mean volume (Bld) [Entitic vol] 8.2 fL 6.3-10.7 [facility] Platelets Auto (Bld) [#/Vol] Ordered By: Isiah Purcell on 06-01-2023 Platelets (Bld) [#/Vol] 377 10*3/uL 150-450 [facility] Potassium [Moles/volume] in Serum or PlasmaOrdered By: Isiah Purcell on 06-01-2023 Potassium [Moles/Vol] 4.2 mmol/L 3.5-5.1 [facility] Protein [Mass/volume] in Ser um or PlasmaOrdered By: Isiah Purcell on 06-01-2023 Protein [Mass/Vol] 6.6 g/dL 6.4-8.9 [facility] RBC Auto (Bld) [#/Vol]Ordere d By: Isiah Purcell on 06-01-2023 RBC (Bld) [#/Vol] 4.52 10*6/uL 3.60-5.00 [facility] Serum or plasma albumin/glob ulin mass ratioOrdered By: Isiah Purcell on 06-01-2023 Albumin/Globulin [Mass ratio] 1.8 {ratio} [facility] Serum or plasma anion gap de terminationOrdered By: Isiah Purcell on 06-01-2023 Anion gap [Moles/Vol] 10.2 mmol/L 6.0-15.0 [facility] Sodium [Moles/volume] in Ser um or PlasmaOrdered By: Isiah Purcell on 06-01-2023 Sodium [Moles/Vol] 140 mmol/L 136-145 [facility] Urea nitrogen [Mass/volume] in Serum or PlasmaOrdered By: Isiah Purcell on 06-01-2023 Urea nitrogen [Mass/Vol] 7 mg/dL 7-25 [facility] WBC Auto (Bld) [#/Vol]Ordere d By: Isiah Purcell on 06-01-2023 WBC (Bld) [#/Vol] 7.3 10*3/uL 3.8-11.6 [facility] MR shoulder LT wo conon 03-22 [place] [address] MRI Report Signed Patient: Karen Solis MR#: [id number] 01 : 1970 Acct:[id number] Age/Sex: 52 / F ADM Date: 04/02/23 Loc: [facility] Room: Type: [facility] Attending Dr: Pratik Cross DO Copies to: Pratik Cross DO Ordering Provider: Pratik Cross DO Date of Service: 04/02/23 MR/MR shoulder LT wo con: Subacromial impingement of left shoulder;Adhesive capsulitis MR LEFT SHOULDER CLINICAL INFORMATION: Pain along the head of the left humerus, limited motion. COMPARISON: Radiographs 05/19/2022. PROCEDURE: Axial, oblique coronal, and oblique sagittal long TR images of the shoulder were obtained. FINDINGS: ROTATOR CUFF AND ASSOCIATED STRUCTURES Biceps Tendon: The biceps tendon is normally situated within the bicipital groove. No complete or partial biceps tendon tear is present. Rotator cuff: There is increased T2 signal along the bursal surface of the supraspinatus tendon suggesting mild supraspinatus tendinopathy. The supraspinatus, infraspinatus, teres minor, and subscapularis tendons are intact. Musculature: There is no muscular tear, contusion, or atrophy. Bursa: No bursal effusion or thickening is seen. OSSEOUS STRUCTURES Acromioclavicular joint: There are mild degenerative changes of the acromioclavicular joint. A type 3 acromion configuration is noted. There is lateral acromial downsloping. Bones: No Hill-Sachs, reverse Hill-Sachs, or bony Bankart lesions are seen. There are no fractures or regions of abnormal bone marrow signal intensity. GLENOHUMERAL JOINT Joint: There is no glenohumeral joint effusion. Cartilage: No focal hyaline cartilage defects are noted. Labrum: The labrum is not optimally evaluated. Other support structures: No capsular or ligamentous abnormality is seen. MR/MR shoulder LT wo con IMPRESSION: 1. There is increased T2 signal along the bursal surface of the supraspinatus tendon suggesting mild supraspinatus tendinopathy. 2. There are mild degenerative changes of the acromioclavicular joint. A type 3 acromion configuration is noted. There is lateral acromial downsloping. Impression dictated by: Rian Royal M.D.04/02/2023 4:38 PM Dictation Location: [place] [address] Transcribed By: [facility] 04/02/231637 Dictated By: Rian Royal II, MD 04/02/231630 Signed By: 04/02/231637 Normal [facility] XR thoracic spine 3V*on XR thoracic spine 3V* [facility] [place] [address] XRay Report Signed Patient: Karen Solis MR#: [id number] 01 : 1970 Acct:[id number] Age/Sex: 52 / F ADM Date: 02/24/23 Loc: [facility]XD Room: Type: [facility] CLI Attending Dr: Gwendolyn MULLER Copies to: RENZO Nicole Ordering Provider: RENZO Nicole Date of Service: 02/24/23 XR/XR thoracic spine 3V*: MID BACK PAIN THORACIC SPINE - 3 views: CLINICAL HISTORY: Mid back pain near the bottom of the scapula the past one to 2 months. No injury. COMPARISON: Chest x-ray 06/27/2012 AP, lateral and swimmer's views were obtained. There is subtle reverse S-shaped scoliotic curvature. There is no evidence of compression fracture or displacement. The pedicles are intact. There is no significant degenerative change at the thoracic spine though there is degenerative change at the lower imaged cervical spine. There are no paraspinal soft tissue abnormalities. XR/XR thoracic spine 3V* IMPRESSION: NO ACUTE BONY FINDINGS. Impression dictated by: Perla Mcnally M.D.02/24/2023 4:32 PM Dictation Location: [place] [address] Transcribed By: [facility] 02/24/23 163 Dictated By: Perla Mcnally MD 02/24/23 1630 Signed By: 02/24/23 1632 [facility] XR pre/post mri xray 09-24 XR pre/post mri xray [facility] [place] [address] MRI Report Signed Patient: Karen Solis MR#: [id number] 01 : 1970 Acct:[id number] Age/Sex: 52 / F ADM Date: 09/24/22 Loc: [facility] Room: Type: [facility] CLI Attending Dr: Brenda VILLEDA Copies to: RONAL Collazo Ordering Provider: RONAL Collazo Date of Service: 09/24/22 MR/MR cervical spine wo con: M54.12 ([id number]) XR/XR pre/post mri xray: C-SPINE MRI cervical spine without contrast TECHNIQUE: Multiplanar T1 and T2-weighted imaging of the cervical spine obtained. HISTORY:Neck pain and stiffness with decreased range of motion. The LEFT shoulder and arm pain with radiculopathy for one year which is worsening. COMPARISON:None BONY ALIGNMENT: There is reversal of normal cervical lordosis with mild degenerative listhesis present. BONY LESION:None CERVICAL CORD: No significant demyelination. SKULL BASE: unremarkable. PREVERTEBRAL SOFT TISSUES: Unremarkable NASOPHARYNGEAL REGION: unremarkable. VERTEBRAL ARTERIES: unremarkable. POSTSURGICAL CHANGES:None CERVICAL SOFT TISSUES:Unremarkabl e C1-2 LEVEL:Unremarkable C2-3:Unremarkable C3-4:Mild spondylosis. Diffuse disc bulge and osteophyte complex. Mild effacement of the spinal cord. No cord edema or hemorrhage. Mild to moderate RIGHT and mild LEFT neural foraminal narrow ing. C4-5:Moderate spondylosis. Mild diffuse disc bulge and osteophyte complex. The patent central canal. No significant crowding of the cord. No cord edema or hemorrhage. Patent neural foramen. C5-6:Moderate spondylosis. Diffuse disc bulge and osteophyte complex. Moderate crowding of spinal cord. No cord edema or hemorrhage. Mild to moderate bilateral neural foraminal narrowing. C6-7:Moderate spondylosis. Mild diffuse disc bulge and osteophyte complex. Mild crowding spinal cord. No cord edema or hemorrhage. Mild to moderate bilateral neural foraminal narrowing. C7-T1:Unremarkable MR/MR cervical spine wo con IMPRESSION: Multilevel discovertebral degenerative changes with mild to moderate crowding of spinal cord at levels described above. Mild and moderate bilateral neural foraminal narrowing. 3 views of the cervical spine obtained for pre-MRI assessment. There is reversal of normal cervical lordosis. Multilevel discogenic endplate spurring identified. Mild facet degeneration seen. The C3-C7 bilateral bony neural foraminal narrowing identified. This most prevalent at the C5-6 level. Soft tissues unremarkable. IMPRESSION: Multilevel degenerative changes. Impression dictated by: Umesh Perez M.D.09/24/2022 3:22 PM Dictation Location: [place] [address] Transcribed By: [facility] 09/24/22 1522 Dictated By: Umesh Perez DO 09/24/22 1517 Signed By: 09/24/22 1522 [facility] MR head/brain wo conon 07-30 MR head/brain wo con [facility] [place] [address] [place], [place] [id number] MRI Report Signed Patient: Karen Solis MR#: [id number] 01 : 1970 Acct:[id number] Age/Sex: 52 / F ADM Date: 07/30/22 Loc: [facility]: [facility] Attending Dr: Christin Grullon DO Copies to: Christin Grullon DO Ordering Provider: Christin Grullon DO Date of Service: 07/30/22 MR/MR head/brain wo con: Generalized headaches;Intention tremor;Pain in unspecified l EXAMINATION: MRI OF THE BRAIN WITHOUT CONTRAST CLINICAL HISTORY: Headache and intention tremor for the past few months, mostly on the left. COMPARISON: CT 2021 TECHNIQUE: Multiecho, multiplanar imaging of the brain was performed without enhancement. The ventricles are normal in size and position. A small nonspecific focus of increased T2 and FLAIR signal is present within the subcortical white matter of the right parietal lobe (axial image 15). There is also very subtle increased signal within the suzie. This is nonspecific and could be minimal microvascular disease. Demyelination is thought less likely given the distribution. A prominent perivascular space is noted at the inferior basal ganglia region on the left. There are no additional areas of abnormal signal intensity within the supra- or infratentorial brain. No restricted diffusion is identified to suggest a recent ischemic event. There are no extra-axial collections or mass effect. The imaged paranasal sinuses and mastoid air cells are clear. MR/MR head/brain wo con IMPRESSION: MINIMAL NONSPECIFIC WHITE MATTER CHANGE, DESCRIBED. NO ACUTE INTRACRANIAL FINDINGS Impression dictated by: Perla Mcnally M.D.07/30/2022 4:55 PM Dictation Location: [place] [address] Transcribed By: [facility] 07/30/22 5643 Dictated By: Perla Mcnally MD 07/30/22 1647 Signed By: 07/30/22 1652 [facility] MR head/brain wo con [facility] [employer] Other MR head/brain wo con [facility] [employer] Other MR head/brain wo con 1[address] [facility] [employer] Other MR head/[place] [address] [employer] Other MR head/brain wo con MRI Report [facility] [employer] Other MR head/brain wo con Signed [facility] [employer] Other MR head/brain wo con Patient: Karen Solis MR#: [id number] [employer] Other MR head/brain wo con 01 [facility] [employer] Other MR head/brain wo con : 1970 Acct:[id number] [employer] Other MR head/brain wo con Age/Sex: 52 / F ADM Date: 07/30/22 [employer] Other MR head/brain wo con [facility] Room: Type: [facility] [employer] Other MR head/brain wo con Attending Dr: Christin Grullon DO [employer] Other MR head/brain wo con Copies to: Christin Grullon DO [employer] Other MR head/brain wo con Ordering Provider: Christin Grullon DO [employer] Other MR head/brain wo con Date of Service: 07/30/22 [employer] Other MR head/brain wo con MR/MR head/brain wo con: Generalized headaches;Intention tremor;Pain in [employer] Other MR head/brain wo con [email or web address] Other MR head/brain wo con EXAMINATION: MRI OF THE BRAIN WITHOUT CONTRAST [employer] Other MR head/brain wo con CLINICAL HISTORY: Headache and intention tremor for the past few months, mostly on the left. [employer] Other MR head/brain wo con COMPARISON: CT 2021 [employer] Other MR head/brain wo con TECHNIQUE: Multiecho, multiplanar imaging of the brain was performed without enhancement. [employer] Other MR head/brain wo con The ventricles are normal in size and position. A small nonspecific focus of increased T2 and FLAIR [employer] Other MR head/brain wo con signal is present within the subcortical white matter of the right parietal lobe (axial image 15). [employer] Other MR head/brain wo con There is also very subtle increased signal within the suzie. This is nonspecific and could be [employer] Other MR head/brain wo con minimal microvascular disease. Demyelination is thought less likely given the distribution. A [employer] Other MR head/brain wo con prominent perivascular space is noted at the inferior basal ganglia region on the left. There are [employer] Other MR head/brain wo con no additional areas of abnormal signal intensity within the supra- or infratentorial brain. No [employer] Other MR head/brain wo con restricted diffusion is identified to suggest a recent ischemic event. There are no extra-axial [employer] Other MR head/brain wo con collections or mass effect. The imaged paranasal sinuses and mastoid air cells are clear. [employer] Other MR head/brain wo con MR/MR head/brain wo con [employer] Other MR head/brain wo con IMPRESSION: [email or web address] Other MR head/brain wo con MINIMAL NONSPECIFIC WHITE MATTER CHANGE, DESCRIBED. [employer] Other MR head/brain wo con NO ACUTE INTRACRANIAL FINDINGS [employer] Other MR head/brain wo con Impression dictated by: Perla Mcnally M.D.07/30/2022 4:55 PM [employer] Other MR head/brain wo con Dictation Location: [facility]--10 [employer] Other MR head/brain wo con Transcribed By: PWS 07/30/22 1655 [employer] Other MR head/brain wo con Dictated By: Perla Mcnally MD 07/30/22 1647 [employer] Other MR head/brain wo con Signed By: [email or web address] Other MR head/brain wo con 07/30/22 1655 [email or web address] Other POINT OF CARE GLUCOSEon - Glucose [Mass/Vol] 94 mg/dL Normal 74-106 [facility] Comment on above: Performed By: #### P OCGLUC #### [facility] [address] [place], [place] [address] Dr. Alex Guy Glucose [Mass/Vol] 92 mg/dL Normal 74-106 [facility] Comment on above: Performed By: #### P OCGLUC ####[facility] [address] [place], [place] [address]PyDr. Alex Guy XR FOOT LT 2Von 07-21-2022 XR FOOT LT 2V Fluoroscopic guidance was provided by the department of radiology for the requesting clinician to aid in their procedure. Interpretation of images was performed by the requesting clinician during the procedure, and not by the department of radiology. Given this, there is arthrodesis across the first through third TMT joints without evidence for hardware fracture given limited frontal views. Electronically authenticated by: ROXANNA NIELSEN Date: 2022-07-21 09:40 Normal [facility] Covid-19 PCR (CVDTB)on 06-23 SARS-CoV-2 (COVID-19) RNA CATALINA+probe Ql (Unsp spec) Not detected Normal NOT DETECTED [facility] Comment on above: Result Comment: This test is not yet approved or cleared by the [place] FDA. When there are no FDA-approved or cleared tests available, and other criteria are met, FDA can make tests available under an emergency access mechanism called an Emergency Use Authorization (EUA). The EUA for this test is supported by the [place] of Health and Human Service's (HHS's) declaration that circumstances exist to justify the emergency use of in vitro diagnostics for the detection and/or diagnosis of the virus that causes COVID-19. This EUA will remain in effect (meaning this test can be used) for the duration of the COVID-19 declaration justifying emergency of IVDs, unless it is terminated or revoked by FDA (after which the test may no longer be used). When diagnostic testing is negative, the possibility of a false negative should be considered in the context of a patient's recent exposures and the presence of clinical signs and symptoms consistent with SARS-CoV-2. Performed By: #### [facility] #### [facility] [address] [place] [address] Dr. Alex Sandhu 07-14-2022 L Specimen: [id number] Received: 07/14/22 Status: GENNY Ellis Num: [id number] Spec Type: Surgical Subm Dr: Rian Royal, IIMD Tissues: A BREAST CORE NO CALCS (RT BREAST TISSUE) Procedures: HE/4, Gross/Micro L4, CALPONIN Age/ Patient Sex Location Account Attending Physician Karen Solis 52/F [facility] [id number] Jose Vincent DO SPEC NUM: [id number] RECD: 07/14/22 STATUS: GENNY ELLIS NUM: [id number] LESTER: 07/14/[address] [facility] [address]: Rian Royal II, MD ENTERED: 07/14/[address] [facility] DR: Jose Vincent DO SPEC TYPE: Surgical DEPT: S ORDERED: HE/4, Gross/Micro L4, CALPONIN ORDERED: HE/4, Gross/Micro L4, CALPONIN Pathological Diagnosis Right breast, four5 o'clock retroareolar, ultrasound-guided biopsy: - Benign fibrofatty breast tissue (see comment). - Negative for atypia, or malignancy. COMMENT: Multiple serial sections have been reviewed. IHC stain was performed and showed positive basement membrane marker for Calponin; supporting the above diagnosis. If this lesion is associated with a mass, it does not exclude malignancy. Additional studies may be indicated if the clinical suspicion is high. Please correlate clinically. Clinical Information Right breast lesion four5 o'clock retroareolar Gross Description Received in formalin labeled with the patient's name, number and right breast are multiple fragments of yellow-white soft tissue, measuring in aggregate 1.9 x 1.8 x 0.2 cm. Entirely submitted in one cassette labeled A1. Time of excision: 11:39 AM 07/14/22, time in formalin: Unknown, time out of formalin: 6 PM 07/14/22. Cold Ischemia and Fixation Time meets the requirements specified in the latest version of the ASCO/CAP guidelines: Yes. Cold Ischemic Time: ? Cannot calculate Formalin Fixation Time: ? Cannot calculate Specimen: [id number] Received: 07/14/22 Status: EGNNY Rory Num: [id number] Spec Type: Surgical Subm Dr: Rian Royal II, MD Tissues: A BREAST CORE NO CALCS (RT BREAST TISSUE) Procedures: PALLAVI/Apryl, Gross/Micro L4, CALPONIN Patient: Karen Solis [id number] (Continued) Specimen: [id number] Received: 07/14/22 (Continued) Signed (signatur e on file) Tenisha Banks MD 07/15/22 1623 Specimen: [id number] Received: 07/14/22 Status: GENNY Ellis Num: [id number] Spec Type: Surgical Subm Dr: Rian Royal II, MD Tissues: A BREAST CORE NO CALCS (RT BREAST TISSUE) Procedures: HE/Apryl, Gross/Micro L4, CALPONIN Patient: JasKaren [id number] (Continued) Specimen: [id number] Received: 07/14/22 (Continued) Microscopic Description Two glass slides with H E stained material have been examined. The microscopic findings support the above pathologic diagnosis. CPT Codes 13311 Specimen: [id number] Received: 07/14/22 Status: GENNY Ellis Num: [id number] Spec Type: Surgical Subm Dr: Rian Royal II, MD Tissues: A BREAST CORE NO CALCS (RT BREAST TISSUE) Procedures: PALLAVI/Apryl, Gross/Chiquis L4, CALPONIN Patient: Karen Solis [id number] (Continued) Signed (signatur e on file) Tenisha Banks MD 07/15/22 1623 Normal [facility] US breast ndl core biopsy RT on 07-14-2022 breast ndl core biopsy RT [address] [place] [address] Mammography Report Signed with Addenda Patient: Karen Solis MR#: [id number] 01 : 1970 Acct:[id number] Age/Sex: 52 / F ADM Date: 07/14/22 Loc: AC Room: Type: [facility] Attending Dr: Jose Vincent DO Copies to: DO Christin Martini DO Ordering Provider: Jose Vincent DO Date of Service: 07/14/22 US/US breast ndl core biopsy RT: BREAST LESION ([id number]) MM/MM post biopsy RT w/CAD: POST U/S BX WITH CLIP ADDENDUM 1 Final pathology: Benign fibrofatty breast tissue Negative for atypia or malignancy. Recommendation: Follow-up with diagnostic right breast mammogram in 6 months is recommended. Impression dictated by: Rian Royal M.D.07/16/2022 7:40 AM Dictation Location: [facility] Addendum Dictated By: Rian Royal II, MD Addendum Signed By: 07/16/22739 Addendum Cosigned By: DD/ TD/TT: 07/16/22 ULTRASOUND GUIDED VACUUM-ASSISTED HOLOGIC ATEC SYSTEM CORE BIOPSIES OF THE RIGHT BREAST: CLINICAL DATA: Right breast mass PROCEDURE: The risks, benefits and alternatives to an ultrasound guided vacuum-assisted Hologic ATEC system core biopsy procedure were discussed with the patient and written informed consent was obtained. Ultrasonographic survey of the inner lower quadrant of the right breast was performed by ophthalmic medical technologist as well as myself. At the 4 to 5:00 position in the retroareolar region there is a 3 x 3 x 2 mm hypoechoic nodule similar to that seen on prior exams. The patient's overlying skin was anesthetized with 1% lidocaine. The deeper soft tissues up to and around the lesion were anesthetized with lidocaine mixed with epinephrine. Following this, multiple core biopsies of the right breast lesion at the 4-5 o'clock position were performed using a 12-gauge [email or web address] vacuum-assisted core biopsy needle under ultrasound guidance. Multiple core biopsy specimens were obtained. A metallic post biopsy marker was then placed. Post procedure mammograms were performed. The patient tolerated the procedure well without immediate postprocedural complication. POSTPROCEDURE MAMMOGRAMS: Craniocaudal and mediolateral oblique views of the right breast were performed using low dose digital technique and compared to the previous ultrasound and mammograms dated 07/08/2022 and 06/19/2022. A small metallic marking clip is demonstrated within the inner lower quadrant of the right breast where the ultrasound guided core biopsy was performed. MM/MM post biopsy RT w/CAD IMPRESSION: STATUS POST ULTRASOUND GUIDED VACUUM-ASSISTED CORE BIOPSIES OF THE RIGHT BREAST. RESULT CODE: NL Impression dictated by: Rian Royal M.D.07/14/2022 11:58 AM Dictation Location: [facility] Transcribed By: ANJEL 07/14/22 1158 Dictated By: Rian Royal II, MD 07/14/22 1154 Signed By: 07/14/22 1158 [facility] PROF CHEM 8 (BAS METB)on Anion gap [Moles/Vol] 9.3 mmol/L Normal [facility] Comment on above: Performed By: #### B MP ####[facility] [address] [place] [address]Dr. Alex Guy Calcium [Mass/Vol] 9.5 mg/dL Normal 8.5-10.1 [facility] Comment on above: Performed By: #### B MP ####[facility] [address] [place] [address]Dr. Alex Guy Chloride [Moles/Vol] 104 mmol/L Normal 98-[address] [facility] Comment on above: Performed By: #### B MP ####[facility] [address] [place] [address]Dr. Alex Guy CO2 [Moles/Vol] 32.4 mmol/L Critically high 21.0-32.[address] [facility] Comment on above: Performed By: #### B MP ####[facility] [address] [place] [address]Dr. Alex Guy Creatinine [Mass/Vol] 0.82 mg/dL Normal 0.55-1.[address] [facility] Comment on above: Performed By: #### B MP ####[facility] [address] [place] [address]Dr. Alex Guy EGFR-AF MOLDOVAN >60 Normal >=60 [facility] Comment on above: Performed By: #### B MP ####[facility] [address] [place] [address]Dr. Alizelarry Brooks EGFR-NON AF MOLDOVAN >60 Normal >=60 [facility] Comment on above: Performed By: #### B MP ####[facility] [address] [place] [address]Dr. Alex Guy Glucose [Mass/Vol] 89 mg/dL Normal 74-106 [facility] Comment on above: Performed By: #### B MP ####[facility] [address] [place] [address]Dr. Alex Guy Potassium [Moles/Vol] 4.7 mmol/L Normal 3.5-5.[address] [facility] Comment on above: Performed By: #### B MP ####[facility] [address] [place] [address]Dr. Alex Guy Sodium [Moles/Vol] 141 mmol/L Normal 136-145 [facility] Comment on above: Performed By: #### B MP ####[facility] [address] [place] [address]Dr. Alex Guy Urea nitrogen [Mass/Vol] 7.0 mg/dL Normal 7.0-18.0 [facility] Comment on above: Performed By: #### B MP ####[facility] [address] [place], [place] [address]Dr. Alex Guy Urea nitrogen/Creatinine [Mass ratio] 8.5 mg/mg Normal [facility] Comment on above: Performed By: #### B MP ####[facility] [address] [place], [place] [address]Dr. Alex Guy CT FOOT LT WO CONon 07-08-19 CT FOOT LT WO CON EXAMINATION: CT FOOT LT WO CON HISTORY: Idiopathic osteoarthritis COMPARISON: 12/27/2021, 06/25/2022 TECHNIQUE: Multi-planar CT images were created without IV contrast. Dose reduction techniques were achieved by using automated exposure control and/or adjustment of mA and/or kV according to patient size and/or use of iterative reconstruction technique. FINDINGS: BONES: No acute fracture or dislocation. Stable midfoot forefoot fusion with a plate and screws across the first tarsometatarsal joint surgical marco antonio across the second and third tarsometatarsal joints in addition to 4 screws from distal to medial. There is diffuse permeative pattern of the bones consistent with osteopenia. No acute fracture, dislocation or mechanical failure. SOFT TISSUES: Mild soft tissue swelling. No radiopaque foreign body EFFUSION: None visible. OTHER: Negative. IMPRESSION: Stable midfoot forefoot fusion with no acute fracture, dislocation or mechanical failure Electronically authenticated by: STERLING THOMAS Date: 2022-07-08 07:[address] [facility] US breast RT limitedon 07-08 US breast RT limited [facility] [place] [address] [place] [address] Mammography Report Signed Patient: Karen Solis MR#: [id number] : 1970 Acct:[id number] Age/Sex: 52 / F ADM Date: 07/08/22 Loc: [place] Room: Type: [facility] Attending Dr: Christin Grullon DO Copies to: Christin Grullon DO Ordering Provider: Christin Grullon DO Date of Service: 07/08/22 MM/MM diagnostic mammo RT w/CAD: Abnormal mammogram of right breast ([id number]) US/US breast RT limited: Abnormal mammogram of right breast CLINICAL DATA: Follow-up right breast asymmetry. RIGHT DIAGNOSTIC MAMMOGRAMS - FULL FIELD DIGITAL WITH TOMOSYNTHESIS AND CAD Tomosynthesis spot compression true lateral, craniocaudal and mediolateral oblique views of the right breast were obtained using low-dose digital technique. Comparison is made to the prior study from June 19, 2022. This examination was reviewed with the aid of CAD. There are scattered fibroglandular densities. There is still subtle, ill-defined asymmetry at the central, slightly inferior breast on today's views. There are no other suspicious masses, typically malignant calcifications or architectural distortion. LIMITED RIGHT BREAST ULTRASOUND Real-time ultrasound evaluation of the retroareolar and inferior central breast was performed. At the 4 to 5:00 position in the retroareolar region, there is a subtle hypoechoic area which has slightly irregular margination. It measures approximately 3 x 3 x 4 mm in size. This might correlate with the mammographic asymmetry. At the 6 to 7:00 position, 4 cm from the nipple there is a possible subtle 3 x 2 x 4 mm hypoechoic nodular area within a band of tissue extending from middle depth toward the chest wall. There are multiple adjacent vessels. If real, this is probably incidental. MM/MM diagnostic mammo RT w/CAD IMPRESSION: PERSISTENT SUBTLE ASYMMETRY WITH TINY INDETERMINANT HYPODENSITY ON ULTRASOUND. FINDINGS WERE DISCUSSED WITH THE PATIENT WHO WOULD PREFER ULTRASOUND-GUIDED BIOPSY OVER OBSERVATION. SECOND POTENTIAL INCIDENTAL TINY HYPODENSITY AT THE LOWER OUTER QUADRANT. ULTRASOUND FOLLOW-UP IN 6 MONTHS IS SUGGESTED. RESULT CODE: 4a Suspicious Abnormality - Biopsy Low Suspicion DENSITY CODE: 2 (approximately 25-50% glandular) FOLLOW UP: BIO The false-negative rate of mammography is approximately 10-percent. Management of a palpable abnormality must be based on clinical grounds. Patient was entered into a reminder system with a target due date for the next mammogram. Impression dictated by: Perla Mcnally M.D.07/08/2022 4:04 PM Dictation Location: [facility] Transcribed By: ANJEL 07/08/22 1604 Dictated By: Perla Mcnally MD 07/08/22 1442 Signed By: 07/08/22 1604 [facility] US breast RT limited [facility] [employer] Other US breast RT limited [facility] Language[employer] [facility] [employer] Other US breast RT limited [address] [place] [address] [employer] Other [place] [address] [employer] Other US breast RT limited Mammography Report [employer] Other US breast RT limited Signed [email or web address] Other US breast RT limited Patient: Karen Solis MR#: [id number] [employer] Other US breast RT limited [email or web address] Other US breast RT limited : 1970 Acct:[id number] [employer] Other US breast RT limited Age/Sex: 52 / F ADM Date: 07/08/22 [employer] Other US breast RT limited Loc: [place] Room: Type: [facility] [employer] Other US breast RT limited Attending Dr: Christin Grullon DO [employer] Other US breast RT limited Copies to: Christin Grullon DO [employer] Other US breast RT limited Ordering Provider: Crhistin Grullon DO [employer] Other US breast RT limited Date of Service: 07/08/22 [employer] Other US breast RT limited MM/MM diagnostic mammo RT w/CAD: Abnormal mammogram of right breast [employer] Other US breast RT limited ([id number]) US/US breast RT limited: Abnormal mammogram of right breast [employer] Other US breast RT limited CLINICAL DATA: Follow-up right breast asymmetry. [employer] Other US breast RT limited RIGHT DIAGNOSTIC MAMMOGRAMS - FULL FIELD DIGITAL WITH TOMOSYNTHESIS AND CAD [employer] Other US breast RT limited Tomosynthesis spot compression true lateral, craniocaudal and mediolateral oblique views of the [employer] Other US breast RT limited right breast were obtained using low-dose digital technique. Comparison is made to the prior study [employer] Other US breast RT limited from June 19, 2022. This examination was reviewed with the aid of CAD. [employer] Other US breast RT limited There are scattered fibroglandular densities. There is still subtle, ill-defined asymmetry at the [employer] Other US breast RT limited central, slightly inferior breast on today's views. There are no other suspicious masses, typically [employer] Other US breast RT limited malignant calcifications or architectural distortion. [employer] Other US breast RT limited LIMITED RIGHT BREAST ULTRASOUND [employer] Other US breast RT limited the 4 to 5:00 position in the retroareolar region, there is a subtle hypoechoic area which has [employer] Other US breast RT limited slightly irregular margination. It measures approximately 3 x 3 x 4 mm in size. This might correlate [employer] Other US breast RT limited with the mammographic asymmetry. At the 6 to 7:00 position, 4 cm from the nipple there is a possible [employer] Other US breast RT limited subtle 3 x 2 x 4 mm hypoechoic nodular area within a band of tissue extending from middle depth [employer] Other US breast RT limited toward the chest wall. There are multiple adjacent vessels. If real, this is probably incidental. [employer] Other US breast RT limited MM/MM diagnostic mammo RT w/CAD [employer] Other US breast RT limited IMPRESSION: [email or web address] Other US breast RT limited PERSISTENT SUBTLE ASYMMETRY WITH TINY INDETERMINANT HYPODENSITY ON ULTRASOUND. FINDINGS WERE [employer] Other US breast RT limited DISCUSSED WITH THE PATIENT WHO WOULD PREFER ULTRASOUND-GUIDED BIOPSY OVER OBSERVATION. [employer] Other US breast RT limited SECOND POTENTIAL INCIDENTAL TINY HYPODENSITY AT THE LOWER OUTER QUADRANT. ULTRASOUND FOLLOW-UP IN 6 [employer] Other US breast RT limited MONTHS IS SUGGESTED. [employer] Other US breast RT limited RESULT CODE: 4a [employer] Other US breast RT limited Suspicious Abnormality - Biopsy Low Suspicion [employer] Other US breast RT limited DENSITY CODE: 2 (approximately 25-50% glandular) [employer] Other US breast RT limited FOLLOW UP: BIO [employer] Other US breast RT limited The false-negative rate of mammography is approximately 10-percent. [employer] Other US breast RT limited Management of a palpable abnormality must be based on clinical grounds. [employer] Other US breast RT limited Patient was entered into a reminder system with a target due date for the next mammogram. [employer] Other US breast RT limited Impression dictated by: Perla Mcnally M.D.07/08/2022 4:04 PM [employer] Other US breast RT limited Dictation Location: [facility] [employer] Other US breast RT limited Transcribed By: ANJEL 07/08/22 1604 [employer] Other US breast RT limited Dictated By: Perla Mcnally MD 07/08/22 1442 [employer] Other US breast RT limited Signed By: Thierno Kleo Other US breast RT limited 07/08/22 1604 [employer] Other MM screening mammo BI w/CADo n 06-30-2022 MM screening mammo BI w/CAD [facility] Main [place] [address] [place], [place] [id number] Mammography Report Signed Patient: Karen Solis MR#: [id number] 01 : 1970 Acct:[id number] Age/Sex: 52 / F ADM Date: 06/19/22 Loc: [place] Room: Type: [facility] Attending Dr: Christin Grullon DO Copies to: Christin Grullon DO Ordering Provider: Christin Grullon DO Date of Service: 06/19/22 MM/MM screening mammo BI w/CAD: Encounter for screening mammogram for malignant neoplasm of CLINICAL DATA: Screening for malignancy. SCREENING MAMMOGRAM - FULL FIELD DIGITAL WITH TOMOSYNTHESIS AND CAD COMPARISON:Baseline study Tomosynthesis craniocaudal and mediolateral oblique views of both breasts were obtained using low- dose digital technique. This examination was reviewed with the aid of CAD. The breast parenchyma is heterogeneously dense. Asymmetry with questionable narrowing architectural distortion central aspect of the right breast, middle depth on CC view only. MM/MM screening mammo BI w/CAD IMPRESSION: Asymmetry with questionable narrowing architectural distortion central aspect of the right breast, middle depth on CC view only. SPOT COMPRESSION/LATERAL VIEWS WITH POSSIBLE ULTRASOUND ARE RECOMMENDED. RESULT CODE: 0 Incomplete: Needs Additional Imaging Evaluation DENSITY CODE: 3 (approximately 51-75% glandular) FOLLOW UP: ADD The false-negative rate of mammography is approximately 10-percent. Management of a palpable abnormality must be based on clinical grounds. Patient was entered into a reminder system with a target due date for the next mammogram. Impression dictated by: Jeff Hannah Jr., D.O.06/30/2022 10:03 AM Dictation Location: [facility] Transcribed By: [facility] 06/30/22 1003 Dictated By: Jeff Hannah Jr, DO 06/30/22 1001 Signed By: 06/30/22 1003 Normal [facility] Albumin [Mass/volume] in Ser um or PlasmaOrdered By: Christin Grullon on 05-19-2022 Albumin [Mass/Vol] 4.6 g/dL 3.2-5.5 [facility] C reactive protein [Mass/vol ume] in Serum or PlasmaOrdered By: Christin Grullon on 05-19-2022 CRP [Mass/Vol] 0.5 mg/dL 0.0-1.0 [facility] Creatinine and Glomerular fi ltration rate.predicted panel (S/P/Bld)Ordered By: Christin Grullon on 05-19-2022 Creatinine [Mass/Vol] 0.85 mg/dL 0.44-1.03 [facility] Erythrocyte distribution wid th Auto (RBC) [Ratio]Ordered By: Christin Grullon on 05-19-2022 Erythrocyte distribution width (RBC) [Ratio] 13.6 % 11.9-15.3 [facility] Erythrocyte sedimentation ra te by Photometric methodOrdered By: Christin Grullon on 05-19-2022 ESR Photometric method (Bld) [Velocity] 24 mm/hr 0 [facility] Estimated glomerular filtrat ion rate (GFR) non- AmericanOrdered By: Christin Grullon on 05-19-2022 GFR/1.73 sq M.predicted among non-blacks MDRD (S/P/Bld) [Vol rate/Area] > 60 mL/Min [facility] Globulin Calc (S) [Mass/Vol] Ordered By: Christin Grullon on 05-19-2022 Globulin (S) [Mass/Vol] 2.5 g/dL F [facility] Hematocrit Auto (Bld) [Volum e fraction]Ordered By: Christin Grullon on 05-19-2022 Hematocrit (Bld) [Volume fraction] 42.6 % 34.0-46.4 [facility] Hemoglobin [Mass/volume] in BloodOrdered By: Christin Grullon on 05-19-2022 Hemoglobin (Bld) [Mass/Vol] 14.1 g/dL 11.8-15.4 [facility] MCH Auto (RBC) [Entitic mass ]Ordered By: Christin Grullon on 05-19-2022 MCH (RBC) [Entitic mass] 29.5 pg 24.7-34.3 [facility] MCHC Auto (RBC) [Mass/Vol]Or dered By: Christin Grullon on 05-19-2022 MCHC (RBC) [Mass/Vol] 33.0 g/dL 32.0-35.0 [facility] MCV Auto (RBC) [Entitic vol] Ordered By: Christin Grullon on 05-19-2022 MCV (RBC) [Entitic vol] 89.3 fL 80-100 F [facility] No Panel InformationOrdered By: Christin Grullon on 11-28-2022 Estimated GFR () > 60 mL/Min [facility] Comment on above: GFR estimated refere nce range: According to KDOQI guidelines, <60 ml/min/1.73m2 is sufficient to diagnose a patient with chronic kidney disease. Pharmacy Creatinine Clearance (Chem N/A [facility] Platelet mean volume Auto (B ld) [Entitic vol]Ordered By: Christin Grullon on 05-19-2022 Platelet mean volume (Bld) [Entitic vol] 8.5 fL 6.3-10.7 [facility] Platelets Auto (Bld) [#/Vol] Ordered By: Christin Grullon on 05-19-2022 Platelets (Bld) [#/Vol] 388 10*3/uL 150-450 [facility] Protein [Mass/volume] in Ser um or PlasmaOrdered By: Christin Grullon on 05-19-2022 Protein [Mass/Vol] 7.1 g/dL 6.1-7.9 [facility] RBC Auto (Bld) [#/Vol]Ordere d By: Christin Grullon on 05-19-2022 RBC (Bld) [#/Vol] 4.77 10*6/uL 3.60-5.00 [facility] Serum or plasma alanine martinez otransferase measurement without P-5'-P (enzymatic activiOrdered By: Christin Grullon on 05-19-2022 ALT No additional P-5'-P [Catalytic activity/Vol] 9 U/L 10-60 [facility] Serum or plasma albumin/glob ulin mass ratioOrdered By: Christin Grullon on 05-19-2022 Albumin/Globulin [Mass ratio] 1.8 {ratio} [facility] Serum or plasma alkaline cooper sphatase measurement (enzymatic activity/volume)Ordered By: Christin Grullon on 05-19-2022 ALP [Catalytic activity/Vol] 98 U/L 32-92 [facility] Serum or plasma anion gap de terminationOrdered By: Christin Grullon on 05-19-2022 Anion gap [Moles/Vol] 13.8 mmol/L 6.0-15.0 [facility] Serum or plasma aspartate am inotransferase measurement (enzymatic activity/volume)Ordered By: Christin Grullon on 05-19-2022 AST [Catalytic activity/Vol] 16 U/L 10-42 [facility] Serum or plasma calcium abhijit urement (mass/volume)Ordered By: Christin Grullon on 05-19-2022 Calcium [Mass/Vol] 9.9 mg/dL 8.2-10.2 [facility] Serum or plasma chloride brandon surement (moles/volume)Ordered By: Christin Grullon on 05-19-2022 Chloride [Moles/Vol] 101 mmol/L 95-114 [facility] Serum or plasma cyclic adeno sine monophosphate measurement (moles/volume)Ordered By: Christin Grullon on 05-19-2022 Adenosine monophosphate.cyclic [Moles/Vol] 4 units 0-19 [facility] Comment on above: Negative <20 Weak po sitive 20 - 39 Moderate positive 40 - 59 Strong positive >59Performed at: - [facility] [id number] Director: Lena Evans MD, Phone: [phone] Serum or plasma glucose abhijit urement (mass/volume)Ordered By: Christin Grullon on 05-19-2022 Glucose [Mass/Vol] 81 mg/dL 70-100 [facility] Comment on above: ADA recommended refe rence rangeRandom Glucose Reference Range is dependent on time and content of last meal. Glucose of more than 200 mg/dL in a nonstressed, ambulatory subject supports the diagnosis of Diabetes Mellitus. Serum or plasma potassium me asurement (moles/volume)Ordered By: Christin Grullon on 05-19-2022 Potassium [Moles/Vol] 4.6 mmol/L 3.5-5.1 [facility] Serum or plasma rheumatoid f actor measurement (units/volume)Ordered By: Christin Grullon on 05-19-2022 Rheumatoid factor Qn [IU]/mL <14.0 [facility] Comment on above: Performed at: [address] [id number] Director: Primitivo Raygoza PhD, Phone: [phone] Serum or plasma sodium measu rement (moles/volume)Ordered By: Christin Grullon on 05-19-2022 Sodium [Moles/Vol] 138 mmol/L 136-146 [facility] Serum or plasma total biliru bin measurement (mass/volume)Ordered By: Christin Grullon on 05-19-2022 Bilirubin [Mass/Vol] 0.4 mg/dL 0.3-1.2 [facility] Serum or plasma total carbon dioxide measurement (moles/volume)Ordered By: Christin Grullon on 05-19-2022 CO2 [Moles/Vol] 27.8 mmol/L 22.0-30.0 [facility] Serum or plasma urea nitroge n measurement (mass/volume)Ordered By: Christin Grullon on 05-19-2022 Urea nitrogen [Mass/Vol] 8 mg/dL 9- [facility] WBC Auto (Bld) [#/Vol]Ordere d By: Christin Grullon on 05-19-2022 WBC (Bld) [#/Vol] 7.1 10*3/uL 3.8-11.6 [facility] XR knee standing BIon 2021 XR knee standing BI [facility] [employer] Other XR knee standing BI [facility] [employer] Other XR knee standing BI [address] [place] [address] [employer] [facility] [employer] [place] [address] [employer] Other XR knee standing BI XRay Report [email or web address] Other XR knee standing BI Signed [employer] Other XR knee standing BI Patient: Karen Solis MR#: [id number] [employer] Other XR knee standing BI 01 [employer] Other XR knee standing BI : 1970 Acct:[id number] [employer] Other XR knee standing BI Age/Sex: 52 / F ADM Date: 05/19/22 [employer] Other XR knee standing BI Loc: XDS Room: Type: REG CLI [employer] Other XR knee standing BI Attending Dr: Christin Grullon DO [employer] Other XR knee standing BI Copies to: Christin Grullon, [employer] Other XR knee standing BI Ordering Provider: Christin Grullon DO [employer] Other XR knee standing BI Date of Service: 05/19/22 [employer] Other XR knee standing BI XR/XR shoulder LT min 2V*: Pain in joint, multiple sites;Pain in left [employer] Other XR knee standing BI shoulder [employer] Other XR knee standing BI ([id number]) XR/XR knee standing BI: Pain in joint, multiple sites;Pain in right knee;Pain in lef [employer] Other XR knee standing BI LEFT SHOULDER - - 3 views bilateral knee series, one view each [employer] Other XR knee standing BI CLINICAL HISTORY: Frozen left shoulder for 4 months. Bilateral knee pain left greater than right [employer] Other XR knee standing BI with standing. [employer] Other XR knee standing BI COMPARISON: Knee series 01/15/2021 [employer] Other XR knee standing BI FINDINGS: [employer] Other XR knee standing BI Left shoulder: No acute bony process or significant degenerative change. [employer] Other XR knee standing BI Knee series: No acute bony process or significant degenerative change. [employer] Other XR knee standing BI XR/XR shoulder LT min 2V* [employer] Other XR knee standing BI IMPRESSION: [employer] Other XR knee standing BI NO ACUTE BONY PROCESS OR SIGNIFICANT DEGENERATIVE CHANGE INVOLVING THE KNEES OR LEFT SHOULDER. [employer] Other XR knee standing BI Impression dictated by: Jeff Hannah Jr., D.OGanga05/19/2022 3:54 PM [employer] Other XR knee standing BI Dictation Location: [place] [address] [employer] Other XR knee standing BI Transcribed By: PWS 05/19/22 1554 [employer] Other XR knee standing BI Dictated By: Jeff Hannah Jr, DO 05/19/22 1553 [employer] Other XR knee standing BI Signed By: [employer] Other XR knee standing BI 05/19/22 1554 No rt [email or web address] Other POINT OF CARE GLUCOSEon 01-21 Glucose [Mass/Vol] 126 mg/dL Critically high 74-106 T [facility] Comment on above: Performed By: #### P OCGLUC #### [facility] [address] [place] [address] Dr. Alex Guy Covid-19 PCR ([facility])on 01-21 SARS-CoV-2 (COVID-19) RNA CATALINA+probe Ql (Unsp spec) Not detected Normal NOT DETECTED [facility] Comment on above: Result Comment: This test is not yet approved or cleared by the [place] FDA. When there are no FDA-approved or cleared tests available, and other criteria are met, FDA can make tests available under an emergency access mechanism called an Emergency Use Authorization (EUA). The EUA for this test is supported by the [place] of Health and Human Service's (HHS's) declaration that circumstances exist to justify the emergency use of in vitro diagnostics for the detection and/or diagnosis of the virus that causes COVID-19. This EUA will remain in effect (meaning this test can be used) for the duration of the COVID-19 declaration justifying emergency of IVDs, unless it is terminated or revoked by FDA (after which the test may no longer be used). When diagnostic testing is negative, the possibility of a false negative should be considered in the context of a patient's recent exposures and the presence of clinical signs and symptoms consistent with SARS-CoV-2. Performed By: #### C VDTB #### [facility] [address] [address] [address] Alex Guy XR CHEST 2 Von 02-04-2022 XR CHEST 2 V EXAMINATION: XR CHEST 2 V HISTORY: Chronic obstructive lung disease COMPARISON: No relevant comparison available. FINDINGS: LUNGS: No significant pulmonary parenchymal abnormalities. VASCULATURE: No increased pulmonary vasculature. PLEURA: No pneumothorax, effusion, or pleural thickening. CARDIAC: No cardiomegaly or cardiac silhouette abnormality. MEDIASTINUM: No visible mass or adenopathy. BONES: Pectus excavatum. No fracture or visible bone lesion. OTHER: Negative. IMPRESSION: 1. No acute cardiopulmonary process. 2. Pectus excavatum. Electronically authenticated by: HUNG ARREDONDO Date: 2022-02-04 07:41 Normal [facility] PROF CHEM 8 (BAS METB)on Anion gap [Moles/Vol] 10.7 mmol/L Normal [facility] Comment on above: Performed By: #### B MP ####[facility] [address] [place] [address]DrGanga Guy Calcium [Mass/Vol] 9.3 mg/dL Normal 8.5-10.1 [facility] Comment on above: Performed By: #### B MP ####[facility] [address] [place] [address]DrGanga Guy Chloride [Moles/Vol] 101 mmol/L Normal 98-[address] [facility] Comment on above: Performed By: #### B MP ####[facility] [address] [place] [address]DrGanga Guy CO2 [Moles/Vol] 30.3 mmol/L Normal 21.0-32.0 [facility] Comment on above: Performed By: #### B MP ####[facility] [address] [place] [address]Dr. Alex Guy Creatinine [Mass/Vol] 0.91 mg/dL Normal 0.55-1.[address] [facility] Comment on above: Performed By: #### B MP ####[facility] [address] [place] [address]Dr. Alex Guy EGFR-AF MOLDOVAN >60 Normal >=60 [facility] Comment on above: Performed By: #### B MP ####[facility] [address] [place] [address]Dr. Alex Guy EGFR-NON AF MOLDOVAN >60 Normal >=[address] [facility] Comment on above: Performed By: #### B MP ####[facility] [address] [place], [place] [address]Dr. Alex Guy Glucose [Mass/Vol] 84 mg/dL Normal 74-106 [facility] Comment on above: Performed By: #### B MP ####[facility] [address] [place], [place] [address]Dr. Alex Guy Potassium [Moles/Vol] 5.0 mmol/L Normal 3.5-5.[address] [facility] Comment on above: Performed By: #### B MP ####[facility] [address] [place], [place] [address]Dr. Alex Guy Sodium [Moles/Vol] 137 mmol/L Normal 136-145 [facility] Comment on above: Performed By: #### B MP ####[facility] [address] [place], [place] [address]Dr. Alex Guy Urea nitrogen [Mass/Vol] 8.0 mg/dL Normal 7.0-18.0 [facility] Comment on above: Performed By: #### B MP ####[facility] [address] [place], [place] [address]Dr. Alex Guy Urea nitrogen/Creatinine [Mass ratio] 8.8 mg/mg Normal [facility] Comment on above: Performed By: #### B MP ####[facility] [address] [place], [place] [address]Dr. Alex Guy CT FOOT LT WO CONon 12-28-[address] FOOT LT WO CON EXAMINATION: CT FOOT LT WO CON HISTORY: Idiopathic osteoarthritis ; Lisfranc fracture, chronic pain to top of left foot COMPARISON: XR foot left 12/04/2021 TECHNIQUE: Multi-planar CT images were created without IV contrast. Dose reduction techniques were achieved by using automated exposure control and/or adjustment of mA and/or kV according to patient size and/or use of iterative reconstruction technique. FINDINGS: BONES: Mild/moderate degenerative changes of the first tarsal-metatarsal joint. No fracture, dislocation, bone lesion. SOFT TISSUES: Negative. No visible soft tissue swelling. EFFUSION: None visible. OTHER: Negative. IMPRESSION: 1. No acute or suspicious bone abnormality. No fracture or displacement. No appreciable sequela of prior Lisfranc fracture. 2. Mild degenerative changes of the first tarsal-metatarsal joint. Electronically authenticated by: HUNG ARREDONDO Date: 2021-12-27 18:[address] [facility] PROGRESSon 10-19-2018 Protein mass conc HNO ID: [id number] Author: Lian Aparicio Service: ? Author Type: Physician Type: Progress Notes Filed: 10/19/2018 9:59 PM Note Text: [facility] - General Progress Note KAREN SOLIS : 1970 AGE: 48 SEX: F CSN: [id number] [facility]: [facility] LOCATION: [facility] [place] ATTENDING PHYSICIAN: Bill Patten M.D. DATE OF EVALUATION: 10/19/2018 SUBJECTIVE: The patient admitted to the Detox Unit with alcohol abuse and intoxication. Known history of COPD, reported lower back pain, achy, no radiation. No numbness, tingling, or focal weakness. No chest pain. ASSESSMENT AND PLAN: 1. Alcohol abuse with severe intoxication, continue with detox protocol. 2. Lower back pain, x-ray of lumbar spine. 3. Chronic obstructive pulmonary disease, aerosol treatment. 4. Hyperglycemia, outpatient Hb A1c. Discussed with Inpatient Psych Unit. Lian Aparicio M.D. Internal Medicine JOYNER:[id number] /[id number] [facility] RPRon 08-31-2018 Reagin Ab RPR Ql (S) Nonreactive Normal Nonreactive [facility] Comment on above: Performed By: #### U A, PT, CBCDIF, GBCHEM, GBTSH, MG, RPR #### [facility] [address] [place] [address] CBCDIFon 08-28-2018 Abs Baso 0.06 k/uL Normal 0-0.2 [facility] Comment on above: Performed By: #### U A, PT, CBCDIF, GBCHEM, GBTSH, MG, RPR #### [facility] [address] [place] [address] Abs Prentiss 1.08 k/uL High 0-0.8 [facility] Comment on above: Performed By: #### U A, PT, CBCDIF, GBCHEM, GBTSH, MG, RPR #### [facility] [address] [place] [address] Abs Neut 4.76 k/uL Normal 1.8-7.7 [facility] Comment on above: Performed By: #### U A, PT, CBCDIF, GBCHEM, GBTSH, MG, RPR #### [facility] [address] [place] [address] Basophils/100 WBC (Bld) 0.8 % Normal 0-1 [facility] Comment on above: Performed By: #### U A, PT, CBCDIF, GBCHEM, GBTSH, MG, RPR #### [facility] [address] [place] [address] Eosinophils #/vol (Bld) 0.25 10*3/uL Normal 0-0.4 [facility] Comment on above: Performed By: #### U A, PT, CBCDIF, GBCHEM, GBTSH, MG, RPR #### [facility] [address] [place] [address] Eosinophils/100 WBC (Bld) 3.3 % Normal 0-4 [facility] Comment on above: Performed By: #### U A, PT, CBCDIF, GBCHEM, GBTSH, MG, RPR #### [facility] [address] [place] [address] Immature Gran 0.30 % Normal 0-1.9 [facility] Comment on above: Performed By: #### U A, PT, CBCDIF, GBCHEM, GBTSH, MG, RPR #### [facility] [address] [facility] [place] [address] Lymphocytes #/vol (Bld) 1.50 10*3/uL Normal 1.0-4.0 [facility] Comment on above: Performed By: #### U A, PT, CBCDIF, GBCHEM, GBTSH, MG, RPR #### [facility] [address] [facility] [address] Lymphocytes/100 WBC (Bld) 19.6 % Low 22-44 [facility] Comment on above: Performed By: #### U A, PT, CBCDIF, GBCHEM, GBTSH, MG, RPR #### [facility] [address] [facility] [place] [address] Monocytes/100 WBC (Bld) 14.1 % High 4-12 A [facility] Comment on above: Performed By: #### U A, PT, CBCDIF, GBCHEM, GBTSH, MG, RPR #### [facility] [address] [facility] [place] [address] Neutrophils/100 WBC (Bld) 61.9 % Normal 40-70 [facility] Comment on above: Performed By: #### U A, PT, CBCDIF, GBCHEM, GBTSH, MG, RPR #### [facility] [address] [place] [address] Erythrocyte distribution width Ratio (RBC) 13.7 % Normal 11.5-14.5 [facility] Comment on above: Performed By: #### U A, PT, CBCDIF, GBCHEM, GBTSH, MG, RPR #### [facility] [address] [place] [address] Hematocrit Volume Fraction (Bld) 45.9 % Normal 36.0-46.0 [facility] Comment on above: Performed By: #### U A, PT, CBCDIF, GBCHEM, GBTSH, MG, RPR #### [facility] [address] [place] [address] Hemoglobin mass conc (Bld) 15.0 g/dL Normal 12.0-16.0 [facility] Comment on above: Performed By: #### U A, PT, CBCDIF, GBCHEM, GBTSH, MG, RPR #### [facility] [address] [place] [address] MCH Entitic mass (RBC) 31.5 pG Normal 26-34 [facility] Comment on above: Performed By: #### U A, PT, CBCDIF, GBCHEM, GBTSH, MG, RPR #### [facility] [address] [place] [address] MCHC mass conc (RBC) 32.7 g/dL Normal 31-37 [facility] Comment on above: Performed By: #### U A, PT, CBCDIF, GBCHEM, GBTSH, MG, RPR #### [facility] [address] [place] [address] MCV Entitic volume (RBC) 96.4 fL Normal 80-100 [facility] Comment on above: Performed By: #### U A, PT, CBCDIF, GBCHEM, GBTSH, MG, RPR #### [facility] [address] [place] [address] NRBCs 0 /100 WBC Normal 0-0.9 [facility] Comment on above: Performed By: #### U A, PT, CBCDIF, GBCHEM, GBTSH, MG, RPR #### [facility] [address] [place] [address] Platelets #/vol (Bld) 248 10*3/uL Normal 150-450 [facility] Comment on above: Performed By: #### U A, PT, CBCDIF, GBCHEM, GBTSH, MG, RPR #### [facility] [address] [place] [address] RBC #/vol (Bld) 4.76 10*6/uL Normal 4.00-5.20 [facility] Comment on above: Performed By: #### U A, PT, CBCDIF, GBCHEM, GBTSH, MG, RPR #### [facility] [address] [place] [address] WBC #/vol (Bld) 7.67 10*3/uL Normal 4.5-11.0 [facility] Comment on above: Performed By: #### U A, PT, CBCDIF, GBCHEM, GBTSH, MG, RPR #### [facility] [address] [place], [place] [id number] Dayanna Rich 2018 Albumin mass conc 3.9 g/dL Normal 3.5-5.0 [facility] Comment on above: Performed By: #### U A, PT, CBCDIF, GBCHEM, GBTSH, MG, RPR #### [facility] [address] [place] [address] Alkaline Phos 112 U/L Normal 38-125 [facility] Comment on above: Performed By: #### U A, PT, CBCDIF, GBCHEM, GBTSH, MG, RPR #### [facility] Clinical Lab [address] [place], [place] [id number] ALT enzyme act/vol 42 U/L Normal 9-52 [facility] Comment on above: Performed By: #### U A, PT, CBCDIF, GBCHEM, GBTSH, MG, RPR #### [facility] [address] [place] [address] Amylase enzyme act/vol 44 U/L Normal 30-110 [facility] Comment on above: Performed By: #### U A, PT, CBCDIF, GBCHEM, GBTSH, MG, RPR #### [facility] [address] [place] [address] Anion gap molar conc 12 mmol/L Normal 0-15 [facility] Comment on above: Performed By: #### U A, PT, CBCDIF, GBCHEM, GBTSH, MG, RPR #### [facility] Lab [address] [place] [address] AST enzyme act/vol 60 U/L High 17-59 [facility] Comment on above: Performed By: #### U A, PT, CBCDIF, GBCHEM, GBTSH, MG, RPR #### [facility] Lab [address] [place] [address] Bilirubin Ql (U) 0.5 mg/dL Normal 0.2-1.3 [facility] Comment on above: Performed By: #### U A, PT, CBCDIF, GBCHEM, GBTSH, MG, RPR #### [facility] Lab [address] [place] [address] Calcium mass conc 9.4 mg/dL Normal 8.4-10.2 [facility] Comment on above: Performed By: #### U A, PT, CBCDIF, GBCHEM, GBTSH, MG, RPR #### [facility] Lab [address] [place] [address] Chloride molar conc 104 mmol/L Normal 98-107 [facility] Comment on above: Performed By: #### U A, PT, CBCDIF, GBCHEM, GBTSH, MG, RPR #### [facility] [address] [place] [address] Cholesterol mass conc 165 mg/dL Normal 100-199 [facility] Comment on above: Performed By: #### U A, PT, CBCDIF, GBCHEM, GBTSH, MG, RPR #### [facility] Clinical Lab [address] [place] [address] CO2 molar conc 28 mmol/L Normal 22-30 [facility] Comment on above: Performed By: #### U A, PT, CBCDIF, GBCHEM, GBTSH, MG, RPR #### [facility] [address] [place] [address] Creatinine mass conc 0.87 mg/dL Normal 0.52-1.04 [facility] Comment on above: Performed By: #### U A, PT, CBCDIF, GBCHEM, GBTSH, MG, RPR #### [facility] Clinical Lab [address] [place] [address] eGFR Amer >60 Normal >60 [facility] Comment on above: Result Comment: MDRD calculation used for eGFR results. Performed By: #### U A, PT, CBCDIF, GBCHEM, GBTSH, MG, RPR #### [facility] [address] [place] [address] eGFR non Am >60 Normal >60 [facility] Comment on above: Performed By: #### U A, PT, CBCDIF, GBCHEM, GBTSH, MG, RPR #### [facility] Clinical Lab [address] [place] [address] Gamma glutamyl transferase enzyme act/vol 79 U/L High 12-43 [facility] Comment on above: Performed By: #### U A, PT, CBCDIF, GBCHEM, GBTSH, MG, RPR #### [facility] [address] [place] [address] Glucose mass conc 75 mg/dL Normal 74-106 [facility] Comment on above: Performed By: #### U A, PT, CBCDIF, GBCHEM, GBTSH, MG, RPR #### [facility] [address] [place] [address] LDH 496 U/L Normal 318-618 [facility] Comment on above: Performed By: #### U A, PT, CBCDIF, GBCHEM, GBTSH, MG, RPR #### [facility] [address] [place] [address] Phosphate mass conc 4.7 mg/dL High 2.5-4.5 [facility] Comment on above: Performed By: #### U A, PT, CBCDIF, GBCHEM, GBTSH, MG, RPR #### [facility] [address] [place] [address] Potassium molar conc 4.2 mmol/L Normal 3.5-5.1 [facility] Comment on above: Performed By: #### U A, PT, CBCDIF, GBCHEM, GBTSH, MG, RPR #### [facility] [address] [place] [address] Protein mass conc 6.9 g/dL Normal 6.2-8.2 [facility] Comment on above: Performed By: #### U A, PT, CBCDIF, GBCHEM, GBTSH, MG, RPR #### [facility] [address] [place] [address] Sodium molar conc 140 mmol/L Normal 137-145 [facility] Comment on above: Performed By: #### U A, PT, CBCDIF, GBCHEM, GBTSH, MG, RPR #### [facility] [address] [place] [address] Triglyceride mass conc 123 mg/dL Normal 35-150 [facility] Comment on above: Performed By: #### U A, PT, CBCDIF, GBCHEM, GBTSH, MG, RPR #### [facility] [address] [place] [address] Urate mass conc 2.5 mg/dL Normal 2.5-6.2 [facility] Comment on above: Performed By: #### U A, PT, CBCDIF, GBCHEM, GBTSH, MG, RPR #### [facility] [address] [place], [place] [id number] Urea nitrogen mass conc 9 mg/dL Normal 7-17 [facility] Comment on above: Performed By: #### U A, PT, CBCDIF, GBCHEM, GBTSH, MG, RPR #### [facility] [address] [place], [place] [id number] [facility] 08-[facility]-2018 Thyrotropin Qn 6.750 uU/mL High 0.465-4.680 [facility] Comment on above: Performed By: #### U A, PT, CBCDIF, GBCHEM, GBTSH, MG, RPR #### [facility] [address] [place], [place] [id number] Magnesiumon 08-28-2018 Magnesium mass conc 2.4 mg/dL High 1.3-2.3 [facility] Comment on above: Performed By: #### U A, PT, CBCDIF, GBCHEM, GBTSH, MG, RPR #### [facility] [address] [place], [place] [id number] Protimeon 08-28-2018 Prothrombin time (PT) Coag time (PPP) 0.9 s Normal 0.6-1.1 [facility] Comment on above: Result Comment: The PT/INR can be used to monitor the therapeutic effect of oral anticoagulants, such as warfarin. The recommended therapeutic range is an INR of 2.0 to 3.0 for most applications, including treatment and prevention of venous thrombosis, treatment of pulmonary embolism, prevention of strokes/TIA in patients with atrial fibrillation, prevention and treatment of thrombosis in patients with a lupus anticoagulant and prevention of systemic embolization in patients with heart valve disorders. There are certain conditions where clinicians may decide to use a lower or higher therapeutic range eg. 1.5 to 1.9 for secondary prevention of idiopathic venous thromboembolism and an INR 2.5 to 3.5 for older generation mechanical heart valves. Anthony, et al. Chest 2004: 126:204S to 233S. Performed By: #### U A, PT, CBCDIF, GBCHEM, GBTSH, MG, RPR #### [facility] [address] [place], [place] [id number] Prothrombin time (PT) Coag time (PPP) 12.2 s Normal 11.8-14.1 [facility] Comment on above: Performed By: #### U A, PT, CBCDIF, GBCHEM, GBTSH, MG, RPR #### [facility] [address] [place], [place] [id number] T3 Totalon 08-28-2018 T3 Total 1.0 ng/mL Normal 0.970-1.69 [facility] Comment on above: Performed By: #### T 3TOT, T3U, T4 #### [facility] [address] [place], [place] 7153624 T3 Uptakeon 08-28-2018 T3 Uptake 29.7 % Normal 23.5-40.5 [facility] Comment on above: Performed By: #### T 3TOT, T3U, T4 #### [facility] [address] [place], [place] [id number] T4on 08-28-2018 T4 4.4 ug/dL Low 5.5-11.0 [facility] Comment on above: Performed By: #### T 3TOT, T3U, T4 #### [facility] [address] [place], [place] [id number] Urinalysison 08-28-2018 Bilirubin mass conc Negative Normal Negative [facility] Comment on above: Performed By: #### U A, PT, CBCDIF, GBCHEM, GBTSH, MG, RPR #### [facility] [address] [place], [place] [id number] Clarity Nom (U) Clear Normal Clear [facility] Comment on above: Performed By: #### U A, PT, CBCDIF, GBCHEM, GBTSH, MG, RPR #### [facility] [address] [place] [address] Color Nom (U) Straw Critically abnormal Yellow [facility] Comment on above: Performed By: #### U A, PT, CBCDIF, GBCHEM, GBTSH, MG, RPR #### [facility] Lab [address] [place] [address] Comments MICROSCOPIC ANALYSIS NOT DONE ON URINES WITH NEGATIVE BIOCHEMICAL TESTS Normal [facility] Comment on above: Performed By: #### U A, PT, CBCDIF, GBCHEM, GBTSH, MG, RPR #### [facility] Lab [address] [place] [address] Glucose mass conc Negative Normal Negative [facility] Comment on above: Performed By: #### U A, PT, CBCDIF, GBCHEM, GBTSH, MG, RPR #### [facility] Clinical Lab [address] [place] [address] Hemoglobin/Blood Negative Normal Negative [facility] Comment on above: Performed By: #### U A, PT, CBCDIF, GBCHEM, GBTSH, MG, RPR #### [facility] Clinical Lab [address] [place] [address] Ketone Negative Normal Negative [facility] Comment on above: Performed By: #### U A, PT, CBCDIF, GBCHEM, GBTSH, MG, RPR #### [facility] [address] [place] [address] Leukest Negative Normal Negative [facility] Comment on above: Performed By: #### U A, PT, CBCDIF, GBCHEM, GBTSH, MG, RPR #### [facility] [address] [place] [address] Nitrite Ql (U) Negative Normal Negative [facility] Comment on above: Performed By: #### U A, PT, CBCDIF, GBCHEM, GBTSH, MG, RPR #### [facility] [address] [place] [address] pH (U) 7.0 [pH] Normal 5-7 [facility] Comment on above: Performed By: #### U A, PT, CBCDIF, GBCHEM, GBTSH, MG, RPR #### [facility] [address] [place] [address] Protein mass conc (U) Negative Normal Negative [facility] Comment on above: Performed By: #### U A, PT, CBCDIF, GBCHEM, GBTSH, MG, RPR #### [facility] [address] [place] [address] Urine Spec [employer] 1.004 Low 1.005-1.030 [facility] Comment on above: Performed By: #### U A, PT, CBCDIF, GBCHEM, GBTSH, MG, RPR #### [facility] [address] [place] [address] Urobilinogen Qn (U) <2.0 Normal 0.0-1.0 [facility] Comment on above: Performed By: #### U A, PT, CBCDIF, GBCHEM, GBTSH, MG, RPR #### [facility] [address] [place] [address] ALLIED HEALTHon 08-27-2018 [facility] HNO ID: [id number] Author: Yazmin (Therapist) Adriano Service: Music Therapy Author Type: Therapist Type: Allied Health Filed: 08/27/2018 3:54 PM Note Text: GROUP PROGRESS NOTE SERVICE DATE: 08/27/2018 SERVICE TIME: 1000 Length (minutes): 45 Attendance: Full Attendance Participation Level: Active Participation Quality: Appropriate, Attentive, Invested and Sharing GROUP PARTICIPATION: Group Topics: Music Therapy: Create Your Own Playlist and Song Sharing PATIENT PRESENTATION AND RESPONSE: Affect: Appropriate and Constricted Mood: Calm Cognition: Alert Coherant and Goal Directed Progress: Emerging Insight and Appeared to successfully internalize the purpose of intervention Patient stated that she was feeling good when asked. During the activity, she was open and willing to share her own music and the significances of each of the songs. She chose her song from the category of a song for when I'm happy to share with the group and was able to speak about the ways the song made her feel. Compared to the previous day, she was much more open to the activities. SIGNATURE: Yazmin Oh MT- PATIENT NAME: Karen Solis DATE: August 27, 2018 TIME: 3:[address] [facility] ALLIED HEALTH HNO ID: [id number] Author: Gifty Kaplan) Calixto Service: Art Therapy Author Type: Art Therapist Type: Allied Health Filed: 08/27/2018 1:50 PM Note Text: GROUP PROGRESS NOTE SERVICE DATE: 08/27/2018 SERVICE TIME: 11:15 AM Length (minutes): 45 Attendance: Full Attendance Participation Level: Active Participation Quality: Appropriate, Attentive, Invested, Sharing and Supportive GROUP PARTICIPATION: Group Topics: Coping Skills: Jenga PATIENT PRESENTATION AND RESPONSE: Affect: Full Mood: Euthymic Cognition: Alert Oriented to - Person, Place, Time, Date, Situation Coherant and Goal Directed Focused Progress: Appeared to successfully internalize the purpose of intervention Pt social and supportive with peers. She enjoyed listening to the music and learning a new game. She is relieved to be going to [facility] for residential today. She feels if she would've went home family stress and idle time would leave her to relapse. SIGNATURE: Gifty De Luna, ELECTRIC WELDER HELPER,ATR, AUTOMATIC CHIEF PATIENT NAME: Karen Solis DATE: August 27, 2018 TIME: 1:[address] [facility] PROGRESSon 08-27-2018 Protein mass conc HNO ID: [id number] Author: Lian Aparicio Service: ? Author Type: Physician Type: Progress Notes Filed: 10/20/2018 9:46 PM Note Text: [facility] - General Progress Note KAREN SOLIS : 1970 AGE: 48 SEX: F CSN: [id number] HOSP SVC: PSYR LOCATION: [facility] [place] ATTENDING PHYSICIAN: Bill Patten M.D. DATE OF EVALUATION: 08/27/2018 SUBJECTIVE: The patient seen and examined. Continued to improve from the detox. Lower back pain is better, not resolved. No numbness or tingling. No incontinence. No focal weakness. ASSESSMENT/PLAN: 1. Alcohol abuse, intoxication, outpatient rehab. 2. Hyperglycemia, outpatient HbA1c. 3. Back pain, recommend physical therapy, x-ray done, recommend outpatient MRI, if persists. 4. Chronic obstructive pulmonary disease, outpatient PFTs, aerosol treatment. Smoking cessation. Lian Aparicio M.D. Internal Medicine JOYNER:[id number] /[id number] [facility] HEALTHon 08-26-2018 ALLIED HEALTH HNO ID: [id number] Author: Lashell (Therapist) Britton Service: Art Therapy Author Type: Therapist Type: Allied Health Filed: 08/26/2018 3:55 PM Note Text: GROUP PROGRESS NOTE SERVICE DATE: 08/26/2018 SERVICE TIME: 1430 Length (minutes): 60 Attendance: Full Attendance Participation Level: Active Participation Quality: Appropriate, Attentive, Invested and Sharing GROUP PARTICIPATION: Group Topics: Art Therapy: Book about your Life [employer] PATIENT PRESENTATION AND RESPONSE: Affect: Appropriate and Full Mood: Calm Cognition: Coherant and Goal Directed Progress: Appeared to successfully internalize the purpose of intervention Pt fully participated in the art experiential, offered support to her peers and stated that she enjoyed the project. At the beginning of the group the pt was often joking with her peers but was able to focus once redirected. Pt used images of animals and a cabin in [place]. Pt stated that she enjoyed the presence of animals and that she has always wanted to travel to [place]. SIGNATURE: Lashell Jarquin [facility] ATR PATIENT NAME: Karen Solis DATE: August 26, 2018 TIME: 3:51 PM [facility] HNO ID: [id number] Author: RASHMI Alanis Service: Recreational Therapy Author Type: Therapist Type: Allied Health Filed: 08/26/2018 2:51 PM Note Text: GROUP PROGRESS NOTE SERVICE DATE: 08/26/2018 SERVICE TIME: 1330 Length (minutes): 45 Attendance: Full Attendance Participation Level: Active Participation Quality: Appropriate, Attentive and Spontaneous GROUP PARTICIPATION: Group Topics: Exercise: Yoga PATIENT PRESENTATION AND RESPONSE: Affect: Appropriate and Full Mood: Calm and Euthymic Cognition: Alert Progress: Appeared to successfully internalize the purpose of intervention Pt attentive and engaged in yoga group, encouraging her peers to participate. Pt adapted and avoided certain stretches, pleasant and social. SIGNATURE: RASHMI Alanis PATIENT NAME: Karen Solis DATE: August 26, 2018 TIME: 2:49 PM [facility] HNO ID: [id number] Author: Yazmin (Therapist) Adriano Service: Music Therapy Author Type: Therapist Type: Allied Health Filed: 08/26/2018 2:01 PM Note Text: GROUP PROGRESS NOTE SERVICE DATE: 08/26/2018 SERVICE TIME: 1100 Length (minutes): 45 Attendance: Attended 3/ to Full Participation Level: Active Participation Quality: Appropriate, Attentive and Sharing GROUP PARTICIPATION: Group Topics: Music Therapy: Composition and Meghna Analysis PATIENT PRESENTATION AND RESPONSE: Affect: Appropriate Mood: Calm Cognition: Alert Progress: Initial interaction with patient Patient came into the group after the introductions. During discussion, she was open and willing to share insight on the lyrics within the song that resonated with her. She was then able to create her own affirmation song, although she politely refused to share the 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 SIGNATURE: CESAR Tristan PATIENT NAME: Karen Solis DATE: August 26, 2018 TIME: 1:53 PM [facility] HNO ID: [id number] Author: Gifty De Luna (Lsw) Service: Art Therapy Author Type: Art Therapist Type: [facility] Filed: 08/26/2018 11:17 AM Note Text: GROUP PROGRESS NOTE SERVICE DATE: 08/26/2018 SERVICE TIME: 9:30 AM Length (minutes): 60 Attendance: Full Attendance Participation Level: Active Participation Quality: Appropriate, Attentive, Invested, Sharing and Supportive GROUP PARTICIPATION: Group Topics: Self-Awareness: Personal Values PATIENT PRESENTATION AND RESPONSE: Affect: Full Mood: Euthymic Cognition: Alert Oriented to - Person, Place, Time, Date, Situation Coherant and Goal Directed Focused Progress: Appeared to successfully internalize the purpose of intervention PT social and supportive with peers. She is feeling anxious and optimistic about discharge today to [facility] She values her family, dogs, health, God and happiness. She feels her family thinks she values her sobriety and strength currently. She continues to want to work on earning her families trust and respect back . SIGNATURE: Gifty De Luna LPC,ATR, AUTOMATIC CHIEF PATIENT NAME: Karen Solis DATE: August 26, 2018 TIME: 11:08 AM Normal [facility] CBC and Differentialon 08-26 Abs Baso 0.04 k/uL Normal <0.11 [facility] Comment on above: Performed By: #### U HCG, UAWMIC, UTOX2 #### [place] [address] Abs Prentiss 1.07 k/uL High <0.87 [facility] Comment on above: Performed By: #### U HCG, UAWMIC, UTOX2 #### [place] [address] Abs Neut 6.92 k/uL Normal 1.45-7.50 [facility] Comment on above: Performed By: #### U HCG, UAWMIC, UTOX2 #### [place] [address] Basophils/100 WBC (Bld) 0.4 % Normal L [facility] Comment on above: Performed By: #### U HCG, UAWMIC, UTOX2 #### [place] [address] Eosinophils #/vol (Bld) 0.19 10*3/uL Normal <0.46 [facility] Comment on above: Performed By: #### U HCG, UAWMIC, UTOX2 #### [place] [address] Eosinophils/100 WBC (Bld) 2.1 % Normal [facility] Comment on above: Performed By: #### U HCG, UAWMIC, UTOX2 #### [place] [address] Erythrocyte distribution width Ratio (RBC) 14.0 % Normal 11.5-15.0 [facility] Comment on above: Performed By: #### U HCG, UAWMIC, UTOX2 #### [place] [address] Hematocrit Volume Fraction (Bld) 41.3 % Normal 36.0-46.0 [facility] Comment on above: Performed By: #### U HCG, UAWMIC, UTOX2 #### [place] [address] Hemoglobin mass conc (Bld) 13.9 g/dL Normal 11.5-15.5 [facility] Comment on above: Performed By: #### U HCG, UAWMIC, UTOX2 #### [place] [address] Lymphocytes #/vol (Bld) 0.86 10*3/uL Low 1.00-4.00 [facility] Comment on above: Performed By: #### U HCG, UAWMIC, UTOX2 #### [place] [address] Lymphocytes/100 WBC (Bld) 9.5 % Normal [facility] Comment on above: Performed By: #### U HCG, UAWMIC, UTOX2 #### [place] [address] MCH Entitic mass (RBC) 32.3 pG Normal 26.0-34.0 [facility] Comment on above: Performed By: #### U HCG, UAWMIC, UTOX2 #### [place] [address] MCHC mass conc (RBC) 33.7 g/dL Normal 30.5-36.0 [facility] Comment on above: Performed By: #### U HCG, UAWMIC, UTOX2 #### [place] [address] MCV Entitic volume (RBC) 95.8 fL Normal 80.0-100.0 [facility] Comment on above: Performed By: #### U HCG, UAWMIC, UTOX2 #### [place] [address] Monocytes/100 WBC (Bld) 11.8 % Normal L [facility] Comment on above: Performed By: #### U HCG, UAWMIC, UTOX2 #### [place] [address] Neutrophils/100 WBC (Bld) 76.2 % Normal [facility] Comment on above: Performed By: #### U HCG, UAWMIC, UTOX2 #### [place] [address] NRBCs 0.0 /100 WBC Normal 0 [facility] Comment on above: Performed By: #### U HCG, UAWMIC, UTOX2 #### [place] [address] Platelet mean volume Entitic volume (Bld) 10.6 fL Normal 9.0-12.7 [facility] Comment on above: Performed By: #### U HCG, UAWMIC, UTOX2 #### [place] [address] Platelets #/vol (Bld) 191 10*3/uL Normal 150-400 [facility] Comment on above: Performed By: #### U HCG, UAWMIC, UTOX2 #### [place] [address] RBC #/vol (Bld) 4.31 10*6/uL Normal 3.90-5.20 [facility] Comment on above: Performed By: #### U HCG, UAWMIC, UTOX2 #### [place] [address] WBC #/vol (Bld) 9.08 10*3/uL Normal 3.70-11.00 [facility] Comment on above: Performed By: #### U HCG, UAWMIC, UTOX2 #### [place] [address] Comp Metabolic Panelon 08-26 Albumin mass conc 3.6 g/dL Low 3.9-4.9 [facility] Comment on above: Performed By: #### U HCG, UAWMIC, UTOX2 #### [place] [address] ALP enzyme act/vol 112 U/L Normal 34-123 [facility] Comment on above: Performed By: #### U HCG, UAWMIC, UTOX2 #### [place] [address] ALT enzyme act/vol 38 U/L Normal 7-38 [facility] Comment on above: Performed By: #### U HCG, UAWMIC, UTOX2 #### [place] [address] Anion gap molar conc 11 mmol/L Normal 9-18 [facility] Comment on above: Performed By: #### U HCG, UAWMIC, UTOX2 #### [place] [address] AST enzyme act/vol 51 U/L High 13-35 [facility] Comment on above: Performed By: #### U HCG, UAWMIC, UTOX2 #### [place] [address] Bilirubin mass conc 0.3 mg/dL Normal 0.2-1.3 [facility] Comment on above: Performed By: #### U HCG, UAWMIC, UTOX2 #### [place] [address] Calcium mass conc 9.1 mg/dL Normal 8.5-10.2 [facility] Comment on above: Performed By: #### U HCG, UAWMIC, UTOX2 #### [place] [address] Chloride molar conc 103 mmol/L Normal 97-105 [facility] Comment on above: Performed By: #### U HCG, UAWMIC, UTOX2 #### [place] [address] CO2 molar conc 24 mmol/L Normal 22-30 [facility] Comment on above: Performed By: #### U HCG, UAWMIC, UTOX2 #### [place] [address] Creatinine mass conc 0.88 mg/dL Normal 0.58-0.96 [facility] Comment on above: Performed By: #### U HCG, UAWMIC, UTOX2 #### [place] [address] eGFR- Amer. >60 Normal >60 [facility] Comment on above: Performed By: #### U HCG, UAWMIC, UTOX2 #### [place] [address] GFR/1.73 sq M predicted among non-blacks MDRD vol rate/area (S/P/Bld) mL/min/{1.73_m2} Normal >60 [facility] Comment on above: Result Comment: eGFR (Estimated GFR) Units of measure: mL/min/1.73 meters squared eGFR is derived from the reexpressed MDRD Study equation using the following parameters: serum creatinine, age, gender and race. The creatinine assay has been calibrated to be traceable to IDMS. An eGFR <60 mL/min/1.73m2 for >3 months is consistent with chronic kidney disease. Refer to KDOQI guidelines for clinical interpretation. In patients with unstable renal function, e.g. those with acute kidney injury, the eGFR may not accurately reflect actual GFR. Performed By: #### U HCG, UAWMIC, UTOX2 #### [place] [address] Glucose mass conc 115 mg/dL High 74-99 [facility] Comment on above: Performed By: #### U HCG, UAWMIC, UTOX2 #### [place] [address] Potassium molar conc 4.1 mmol/L Normal 3.7-5.1 [facility] Comment on above: Performed By: #### U HCG, UAWMIC, UTOX2 #### [place] [address] Protein mass conc 5.6 g/dL Low 6.3-8.0 [facility] Comment on above: Performed By: #### U HCG, UAWMIC, UTOX2 #### [place] [address] Sodium molar conc 138 mmol/L Normal 136-144 [facility] Comment on above: Performed By: #### U HCG, UAWMIC, UTOX2 #### [place] [address] Urea nitrogen mass conc 9 mg/dL Normal 7-21 L [facility] Comment on above: Performed By: #### U HCG, UAWMIC, UTOX2 #### [place] [address] Magnesiumon 08-26-2018 Magnesium mass conc 2.4 mg/dL High 1.7-2.3 [facility] Comment on above: Performed By: #### U HCG, UAWMIC, UTOX2 #### [place] [address] PROGRESSon 08-26-2018 Protein mass conc HNO ID: [id number] Author: Lian Aparicio Service: ? Author Type: Physician Type: Progress Notes Filed: 10/20/2018 9:49 PM Note Text: [facility] - General Progress Note KAREN SOLIS : 1970 AGE: 48 SEX: F CSN: [id number] HOSP [facility]: [facility] LOCATION: [facility] ATTENDING PHYSICIAN: Bill Patten M.D. DATE OF EVALUATION: 08/26/2018 SUBJECTIVE: The patient seen and examined, continuing to report improvement, less withdrawal. Seems to be still little bit anxious and restless. No tremor. No nausea, vomiting, or abdominal pain. Continued to report lower back pain. ASSESSMENT AND PLAN: 1. Alcohol abuse with intoxication. Continued to improve 2. Hyperglycemia, recommend Hb A1c. 3. Lower back pain, x-ray of lumbar spine, Lidoderm patch. Discussed with the detox unit. PAST MEDICAL HISTORY Diagnosis Date - Chronic obstructive pulmonary disease (COPD) (HCC) Social History Socioeconomic History Marital status: Unknown Spouse name: Not on file Number of children: Not on file Years of education: Not on file Highest education level: Not on file Social Needs Financial resource strain: Not on file Food insecurity - worry: Not on file Food insecurity - inability: Not on file Transportation needs - medical: Not on file Transportation needs - non-medical: Not on file Occupational History Not on file Tobacco Use Smoking status: Never Smoker Smokeless tobacco: Never Used Substance and Sexual Activity Alcohol use: Yes Comment: 15 beers a day for about a year. Drug use: No Sexual activity: Not on file Other Topics Concerns: Not on file Social History Narrative Not on file No family history on file. PAST SURGICAL HISTORY Procedure Laterality Date - HYSTERECTOMY HX R.O.S negative other than HPI AND PMH all other SYS reviewed and negative. Most recent labs reviewed [facility] consultants notes reviewed Most recent images Reviewed Last EKG/Rhythm reviewed Med list reviewed per AAKASH Hunter reviewed VS noted per RN Chart GENERAL: o x 3 in distress. SKIN: No rashes . ENT mucosa, Normal/nose normal NECK: no jugulovenous distention NO lymphadenopathy LUNGS:No wheezing,no ronchi no rales. CARDIAC: S1 and S2 ABDOMEN: Abdomen soft, non-tender. EXTREMITIES: Extremities normal. NEURO: non focal PULSES: + pedal / radial No edema Lian Aparicio M.D. Internal Medicine Normal [facility] Phosphoruson 08-26-2018 Phosphate mass conc 4.4 mg/dL Normal 2.7-4.8 [facility] Comment on above: Performed By: #### U HCG, UAWMIC, UTOX2 #### [facility] [address] [address] ALLIED HEALTHon 08-25-2018 ALLIED HEALTH HNO ID: [id number] Author: Katy (Therapist) Ct Service: Art Therapy Author Type: Therapist Type: Allied Health Filed: 08/25/2018 3:48 PM Note Text: GROUP PROGRESS NOTE SERVICE DATE: 08/25/2018 SERVICE TIME: 1400 Length (minutes): 90 Attendance: Full Attendance Participation Level: Active Participation Quality: Appropriate, Attentive, Invested and Sharing GROUP PARTICIPATION: Group Topics: Art Therapy: Rell Poetry PATIENT PRESENTATION AND RESPONSE: Affect: Appropriate Mood: Calm Cognition: Alert Oriented to - Person, Place, Time, Date, Situation Focused Progress: Making progress towards goal Pt was pleasant, social, and supportive to peers. Pt was invested and focused in her art making. She appeared slightly disorganized with her art materials but was able to successfully compete the art directive. Pt gave permission to therapist to read her poem aloud to group. Pt's poem expressed feelings of love for her family, was apologetic and filled with hope. Pt wrote her a letter to her family on the back of her poem. SIGNATURE: BUNNY Dean, [facility] PATIENT NAME: Karen Solis DATE: August 25, 2018 [facility]: 3:[address] [id number] Author: Lashell (Therapist) Britton Service: Art Therapy Author Type: Therapist Type: Allied Health Filed: 08/25/2018 1:43 PM Note Text: GROUP PROGRESS NOTE SERVICE DATE: 08/25/2018 SERVICE TIME: 1100 Length (minutes): 75 Attendance: Attended 3/4 to Full and Left briefly with staff and returned Participation Level: Moderate Participation Quality: Attentive, Invested and Non-spontaneous GROUP PARTICIPATION: Group Topics: Relapse Prevention: Stages of Relapse and Safety Plan PATIENT PRESENTATION AND RESPONSE: Affect: Blunted Mood: Calm Cognition: Coherant and Goal Directed Progress: Initial interaction with patient Pt participated in the group discussion but only when prompted by the therapist and appeared guarded. Pt would not read her safety plan to her peers but instead asked the therapist to read it for her. Pt identified the coping skill of spending time with her family. Pt then shared that she feels that she would be if she did not come to detox and stated that she is happy she is alive. SIGNATURE: Lashell Jarquin [facility] ATR PATIENT NAME: Karen Solis DATE: August 25, 2018 TIME: 1:38 PM [facility] HNO ID: [id number] Author: Katy (Therapist) Ct Service: Art Therapy Author Type: Therapist Type: Allied Health Filed: 08/25/2018 11:32 AM Note Text: GROUP PROGRESS NOTE SERVICE DATE: 08/25/2018 SERVICE TIME: 0930 Length (minutes): 60 Attendance: Attended 3/4 to Full and With Staff Participation Level: Active Participation Quality: Appropriate, Attentive, Invested and Sharing GROUP PARTICIPATION: Group Topics: Community Meeting: Feeling Identification PATIENT PRESENTATION AND RESPONSE: Affect: Appropriate Mood: Calm Cognition: Alert Oriented to - Person, Place, Time, Date, Situation Progress: Initial interaction with patient Pt was pleasant, social, and supportive towards peers. Pt was pulled by staff but returned to group. Pt shared the one thing that makes her angry is being drunk and trying to act sober in front of my kids . The one thing that makes her sad is being an alcoholic . The one thing that makes her scared is getting sober and the one thing that gets her excited is Getting and staying sober . Pt shared the one thing that helps her stay calm is music and the groups. SIGNATURE: BUNNY Dean, [facility] PATIENT NAME: Karen Solis DATE: August 25, 2018 TIME: 11:24 AM Normal [facility] NURSING PROGon 08-25-2018 Protein mass conc HNO ID: [id number] Author: Padilla (Rn) MANI Lewis Service: Nursing Author Type: Registered Nurse Type: Nursing Progress Note Filed: 08/25/2018 6:56 AM Note Text: Nursing Progress Note Patient Name: Karen Solis Patient Location: [address]/[place] [address]* Daily Note:[id number] At beginning of shift pt observed to be participating in AA meeting, then had been on telephone with her , without distress. 2300: Pt had been assessed by Dr Aparicio, denied signifant complaints but noted low back ache, verbal order from Dr Aparicio to begin Lidocaine patch in A.M. Pt declined oral PRNs for lower back pain, but accepting of hs scheduled medications (detox taper progress of last dose of Librium 10 mg) continue to reinforce progress with emotional support . AANDOx3. Patient pleasant and cooperative. No distress noted. Will continue to monitor. Vitals noted: Blood pressure 146/84, pulse 70, temperature 36.1 ?C (96.9 ?F), temperature source Temporal Artery, resp. rate 16, height 167.6 cm (5' 6 ), weight 53.5 kg (118 lb), SpO2 100 %. At 0600: Pt continues to sleep. Safety monitoring maintained. This note was completed by: Padilla Lewis RN [facility] HNO ID: [id number] Author: RASHMI Alanis Service: Recreational Therapy Author Type: Therapist Type: Allied Health Filed: 08/24/2018 3:45 PM Note Text: GROUP PROGRESS NOTE SERVICE DATE: 08/24/2018 SERVICE TIME: 1330 Length (minutes): 60 Attendance: Attended 1/2 to 3/4 of session Participation Level: Minimal Participation Quality: Appropriate and Restless GROUP PARTICIPATION: Group Topics: Exercise: Yoga PATIENT PRESENTATION AND RESPONSE: Affect: Constricted Mood: Anxious Cognition: Alert Progress: Initial interaction with patient Pt initially stated she recently broke her left foot and had complaints of back pain, encouraged to do only what she could do without pain. Pt took breaks as needed, avoided certain stretches. Pt left group stating she needed to talk to staff, returned and stated my anxiety was a 7 at the start of group and now its a 10 after talking to staff. Pt reported feeling more physically relaxed after doing some movement. SIGNATURE: RASHMI Alanis PATIENT NAME: Karen Solis DATE: August 24, 2018 TIME: 3:36 PM [facility] HNO ID: [id number] Author: Gifty De Luna (Lsw) Service: Art Therapy Author Type: Art Therapist Type: Allied Health Filed: 08/24/2018 5:06 PM Note Text: GROUP PROGRESS NOTE SERVICE DATE: 08/24/2018 SERVICE TIME: 2:45 PM Length (minutes): 120 Attendance: Attended 3/4 to Full Participation Level: Active Participation Quality: Appropriate, Attentive, Invested, Sharing and Supportive GROUP PARTICIPATION: Group Topics: Art Therapy: Directive - Open Studio and Canvas Painting, Velvet Posters and Sun Catchers Purpose - Healthy Distraction, Healthy Socialization and Mindfulness PATIENT PRESENTATION AND RESPONSE: Affect: Appropriate Mood: Calm Cognition: Alert Oriented to - Person, Place, Time, Date, Situation Coherant and Goal Directed Focused Progress: Appeared to successfully internalize the purpose of intervention Pt social and supportive with peers. She chose to paint sunflowers. She enjoyed listening to the music and was thankful for the group. SIGNATURE: Gifty De Luna LPCATR, AUTOMATIC CHIEF PATIENT NAME: Karen Solis DATE: August 24, 2018 TIME: 4:49 PM [facility] HNO ID: [id number] Author: Cathy Anna-Adriana Corley, Therapist Service: Art Therapy Author Type: Art Therapist Type: Allied Health Filed: 08/24/2018 2:13 PM Note Text: GROUP PROGRESS NOTE SERVICE DATE: 08/24/2018 SERVICE TIME: 9:30 am Length (minutes): 75 Attendance: Full Attendance Participation Level: Active Participation Quality: Appropriate, Attentive, Invested, Sharing, Spontaneous and Supportive GROUP PARTICIPATION: Group Topics: Community Meeting: Schedule, Symptom AND Mood Check-In, Treatment Progress and thought of the day: gratitude and letting go PATIENT PRESENTATION AND RESPONSE: Affect: Appropriate and Full Mood: Anxious and Calm Cognition: Alert Oriented to - Person, Place, Time, Date, Situation Focused Progress: Improving and Making progress towards goal Pt reported improvement in mood and physically feeling better. Pt voiced that she is grateful for God and Family. Pt feels that she wants to let go of self criticism that feeds into her depression and drinking. Pt could not identify her own personal strength, but voiced her strength is her family support. Pt often related to peers in trying to focus more of her attention from the past to move forward in her well being, feeling a little anxious about going home tomorrow, still needing to talk with her spouse to confirm treatment option. SIGNATURE: Cathy Corley [facility] PATIENT NAME: Karen Solis DATE: August 24, 2018 TIME: 2:06 PM [facility] HNO ID: [id number] Author: Gifty De Luna (Lsw) Service: Art Therapy Author Type: Art Therapist Type: Allied Health Filed: 08/24/2018 1:18 PM Note Text: GROUP PROGRESS NOTE SERVICE DATE: 08/24/2018 SERVICE TIME: 11:00 AM Length (minutes): 75 Attendance: Full Attendance Participation Level: Active Participation Quality: Appropriate, Attentive, Sharing and Supportive GROUP PARTICIPATION: Group Topics: Self-Awareness: Resiliency PATIENT PRESENTATION AND RESPONSE: Affect: Appropriate Mood: Calm Cognition: Alert Oriented to - Person, Place, Time, Date, Situation Coherant and Goal Directed Focused Progress: Appeared to successfully internalize the purpose of intervention Pt social and supportive with peers. She rated her resiliency high (8/10). She reflected on her upbringing with her parents fighting and drinking. I knew I didn't want that life so it motivated me to be better. She spoke about needing to earn the respect of her family back and feels it will just take time. She feels her idle time will be a barrier in her sobriety but plans to go to IOP and meetings. SIGNATURE: Gifty De Luna, ELOY,ATR, AUTOMATIC CHIEF PATIENT NAME: Karen Solis DATE: August 24, 2018 TIME: 1:[address] [facility] Hepatitis Remote Panelon HBsAg Negative Normal Negative [facility] Comment on above: Performed By: #### U HCG, UAWMIC, UTOX2 #### [place] [address] Hep B Core Ab,Total Negative Normal Negative [facility] Comment on above: Performed By: #### U HCG, UAWMIC, UTOX2 #### [place] [address] Hepatitis C Ab IA Negative Normal Negative [facility] Comment on above: Performed By: #### U HCG, UAWMIC, UTOX2 #### [place] [address] HepB Surface Ab,Qual Negative Normal Negative [facility] Comment on above: Result Comment: NEGA TIVE Performed By: #### U HCG, UAWMIC, UTOX2 #### [place] [address] NURSING PROGon 08-24-2018 Protein mass conc HNO ID: [id number] Author: Padilla (Rn) MANI Lewis Service: Nursing Author Type: Registered Nurse Type: Nursing Progress Note Filed: 08/24/2018 7:01 AM Note Text: Nursing Progress Note Patient Name: Karen Solis Patient Location: [address]/[id number]* Daily Note:[id number] At beginning of shift pt observed to be participating in AA meeting with IV running banana bag @ 100 cc/hr, without distress. 2211: Pt accepting of hs scheduled medication (detox taper of Librium 25 mg) continue to reinforce progress with emotional support . AANDOx4. Patient pleasant and cooperative. No distress noted. Will continue to monitor. Vitals noted: Blood pressure 120/75, pulse 75, temperature 36.8 ?C (98.2 ?F), temperature source Oral, resp. rate 16, height 167.6 cm (5' 6 ), weight 53.5 kg (118 lb), SpO2 96 %. 0015: Pt iv had completed, disconnected, IV lock flushed and pt returned to sleep without issue 0658: Pt easily awakened for assessment and medication. Reports sleep quality was poor and states that did not have using dreams. Pt took scheduled medication (current detox taper of Librium 10 mg ) and PRN Tylenol for headache, pt stated that her IV lock is slightly painful. Emotional support provided with review of detox progress, Will continue to monitor. Vitals noted: Blood pressure 103/67, pulse 70, temperature 36.4 ?C (97.6 ?F), temperature source Temporal Artery, resp. rate 16, height 167.6 cm (5' 6 ), weight 53.5 kg (118 lb), SpO2 98 %. This note was completed by: Padilla Lewis RN [facility] PROGRESSon 08-24-2018 Protein mass conc HNO ID: [id number] Author: Lian Aparicio Service: ? Author Type: Physician Type: Progress Notes Filed: 10/17/2018 11:37 PM Note Text: [facility] - General Progress Note KAREN SOLIS : 1970 AGE: 48 SEX: F CSN: [id number] HOSP [facility]: [facility] LOCATION: [facility] [place] ATTENDING PHYSICIAN: Bill Patten M.D. DATE OF EVALUATION: 08/24/2018 SUBJECTIVE: This is a patient who was admitted to the hospital Detox Unit with alcohol abuse and intoxication. The patient to be restless, seemed to be also anxious. Report lower back pain, achy, no radiation. No numbness or tingling. No focal weakness. Has history of chronic lower back pain. ASSESSMENT AND PLAN: 1. Alcohol abuse with intoxication, Detox protocol. 2. Lower back pain, x-ray of lumbar spine, consider Lidoderm patch. 3. Chronic obstructive pulmonary disease, aerosol treatment, will require outpatient PFTs. Discussed with Inpatient Detox Unit. PAST MEDICAL HISTORY Diagnosis Date - Chronic obstructive pulmonary disease (COPD) ([facility]) Social History Socioeconomic History Marital status: Unknown Spouse name: Not on file Number of children: Not on file Years of education: Not on file Highest education level: Not on file Social Needs Financial resource strain: Not on file Food insecurity - worry: Not on file Food insecurity - inability: Not on file Transportation needs - medical: Not on file Transportation needs - non-medical: Not on file Occupational History Not on file Tobacco Use Smoking status: Never Smoker Smokeless tobacco: Never Used Substance and Sexual Activity Alcohol use: Yes Comment: 15 beers a day for about a year. Drug use: No Sexual activity: Not on file Other Topics Concerns: Not on file Social History Narrative Not on file No family history on file. PAST SURGICAL HISTORY Procedure Laterality Date - HYSTERECTOMY HX R.O.S negative other than HPI AND PMH all other SYS reviewed and negative. Most recent labs reviewed [facility] consultants notes reviewed Most recent images Reviewed Last EKG/Rhythm reviewed Med list reviewed per AAKASH Hunter reviewed VS noted per RN Chart GENERAL: o x 3 in distress. SKIN: No rashes . ENT mucosa, Normal/nose normal NECK: no jugulovenous distention NO lymphadenopathy LUNGS:No wheezing,no ronchi no rales. CARDIAC: S1 and S2 ABDOMEN: Abdomen soft, non-tender. EXTREMITIES: Extremities normal. NEURO: non focal PULSES: + pedal / radial No edema Lian Aparicio M.D. Internal Medicine [facility] Syphilis IgG with Confon Syphilis IgG <0.2 [facility] Comment on above: Result Comment: Anti body index is interpreted as follows: Non reactive SPECIMENS <=0.8 Weak reactive SPECIMENS 0.9 to 5.9 Reactive SPECIMENS >=6.0 Performed By: #### U HCG, UAWMIC, UTOX2 #### [facility] [address] [place] [address] Syphilis IgG, Qual Nonreactive Normal Nonreactive [facility] Comment on above: Result Comment: No s erological evidence of infection with T. pallidum. Performed By: #### U HCG, UAWMIC, UTOX2 #### [place] [address] XR LUMBAR 2V AP/LATon 2018 XR LUMBAR 2V AP/LAT * * *Final Report* * * DATE OF EXAM: Aug 24 2018 9:06AM LUX [id number] - XR LUMBAR 2V AP/LAT / PROCEDURE REASON: Back pain, < 6wks, no red flags, no prior management * * * * Physician Interpretation * * * * Lumbar spine radiographs HISTORY: 48 years old Clinical information: Back pain, < 6wks, no red flags, no prior management PT STS CHRONIC LOWER BACK PAIN TECHNIQUE: Images: XR LUMBAR 2V AP/LAT Comparison: None. RESULT: Findings: Levocurvature of the lumbar spine. Mild narrowing of the L4-5 intervertebral disc space. Endplate osteophytes in the lower lumbar spine. No acute fracture identified. No aggressive osseous lesion is seen. SI joints appear intact. Imaged bowel gas pattern is nonobstructed. Fecal residue in the colon. IMPRESSION: Mild spondylosis of the lumbar spine. No acute osseous normality identified. Left-sided convex curvature of the lumbar spine. Strapping Machine Operator: PSCB Transcribe Date/Time: Aug 24 2018 9:30A Dictated by : ARMAND EVANS MD This examination was interpreted and the report reviewed and electronically signed by: ARMAND EVANS MD on Aug 24 2018 9:33AM EST [id number] [facility] HNO ID: [id number] Author: Cathy MoctezumaKos[facility]trBlack Hess Service: Art Therapy Author Type: Art Therapist Type: [facility] Filed: 08/23/2018 5:36 PM Note Text: GROUP PROGRESS NOTE SERVICE DATE: 08/23/2018 SERVICE TIME: 2:30 pm Length (minutes): 75 Attendance: Less than 1/4 of session Participation Level: Minimal Participation Quality: Attentive and Spontaneous GROUP PARTICIPATION: Group Topics: Art Therapy: emotional haiku PATIENT PRESENTATION AND RESPONSE: Affect: Full Mood: Anxious Cognition: Distracted Poor Concentration Progress: Initial interaction with patient Pt joined late and observed patients processing their art, but did not do her own haiku. Pt voiced just starting to feel little better. SIGNATURE: Cathy Corley [facility] NAME: Karen Solis DATE: August 23, 2018 TIME: 5:33 PM [facility] HNO ID: [id number] Author: Moncho Hollins (Chaplain) Service: Spiritual Care Author Type: Head Pastry Chef Type: [facility] Filed: 08/23/2018 12:24 PM Note Text: GROUP PROGRESS NOTE SERVICE DATE: 08/23/2018 SERVICE TIME: 11:00 am Length (minutes): 60 Attendance: Full Attendance Participation Level: Moderate Participation Quality: Appropriate, Attentive and Guarded GROUP PARTICIPATION: Group Topics: Spirituality: Self-worth PATIENT PRESENTATION AND RESPONSE: Affect: Constricted Mood: Anxious Cognition: Alert Progress: Initial interaction with patient Pt shared that she thought she had been good about hiding her drinking, so she was surprised when family launched intervention. Pt participated in writing about how she sees herself, but passed when it came to sharing with group. SIGNATURE: Chaplain Archana PATIENT NAME: Karen Solis DATE: August 23, 2018 TIME: 12:23 PM [facility] HNO ID: [id number] Author: Gifty De Luna (Lsw) Service: Art Therapy Author Type: Art Therapist Type: [facility] Filed: 08/23/2018 11:16 AM Note Text: GROUP PROGRESS NOTE SERVICE DATE: 08/23/2018 SERVICE TIME: 9:30 AM Length (minutes): 60 Attendance: Sleeping Participation Level: Did Not Attend GROUP PARTICIPATION: Group Topics: Community Meeting: Reflective Quotes, Symptom AND Mood Check-In and Treatment Progress SIGNATURE: Gifty De Luna LPC,ATR, AUTOMATIC CHIEF PATIENT NAME: Karen Solis DATE: August 23, 2018 TIME: 11:[address] [facility] PROGRESSon 08-23-2018 Protein mass conc HNO ID: [id number] Author: Patsy Juarez Service: General Internal Medicine Author Type: Physician Type: Progress Notes Filed: 08/23/2018 12:54 PM Note Text: INTERNAL MEDICINE PROGRESS NOTE Name: Karen Solis SERVICE DATE: August 23, 2018 Primary Attending: Analilia Flaherty MD ASSESSMENT AND PLAN Active Problems: Alcohol withdrawal syndrome (HCC) POA: Yes Assessment AND Plan: treatment per Psychiatry Back pain- XR lumbar Resolved Problems: * No resolved hospital problems. * SUBJECTIVE INTERVAL HPI: + back pain OBJECTIVE PHYSICAL EXAM: Blood pressure 114/76, pulse 99, temperature 36.8 ?C (98.2 ?F), temperature source Temporal, resp. rate 18, height 167.6 cm (5' 6 ), weight 53.5 kg (118 lb), SpO2 95 %., Body mass index is 19.05 kg/m?. LUNGS: Lungs clear to auscultation. Good diaphragmatic excursion. CARDIAC: normal S1 and S2; no rubs, murmurs, or gallops ABDOMEN: Abdomen soft, non-tender. BS normal. No masses or organomegaly. EXTREMITIES: No deformities, edema, clubbing or skin discoloration. MEDICATION: Current Facility-Administer ed Medications Medication Dose Route Frequency - cholecalciferol 2,000 Units tab(s) (VITAMIN D3) 2,000 Units ORAL DAILY - ondansetron 4 mg tab(s) (ZOFRAN) 4 mg ORAL q 6 H PRN Or - ondansetron (PF) 4 mg injection (ZOFRAN) 4 mg INTRAMUSCULAR q 6 H PRN Or - ondansetron (PF) 4 mg injection (ZOFRAN) 4 mg INTRAVENOUS q 6 H PRN - loperamide 2 mg cap(s) (IMODIUM) 2 mg ORAL q 4 H PRN - naloxone 0.4-0.8 mg injection (NARCAN) 0.4-0.8 mg INTRAMUSCULAR q 1 H PRN - magnesium hydroxide 400 mg/5 mL 30 mL (MOM) 30 mL ORAL DAILY PRN - nicotine polacrilex 2 mg gum (NICORETTE) 2 mg ORAL q 2 H PRN - LORazepam 2 mg (ATIVAN) 2 mg ORAL q 4 H PRN Or - LORazepam 2 mg injection (ATIVAN) 2 mg INTRAMUSCULAR q 4 H PRN Or - LORazepam 2 mg injection (ATIVAN) 2 mg INTRAVENOUS q 4 H PRN - thiamine 100 mg tab(s) (VITAMIN B1) 100 mg ORAL TID - doxepin 25 mg cap(s) (SINEquan) 25 mg ORAL HS PRN - acetaminophen 650 mg tab(s) (TYLENOL) 650 mg ORAL q 4 H PRN - chlordiazePOXIDE 25 mg cap(s) (LIBRIUM) 25 mg ORAL QID - NaCl 0.9% 2-10 mL 2-10 mL INTRAVENOUS q 12 H - pneumococcal vaccine 23 VALENT 0.5 mL injection (PNEUMOVAX) 0.5 mL INTRAMUSCULAR ONCE (IMMUNIZATION) - influenza vaccine 60 mcg (Patients 3 to 64 years) (PF) (FLUZONE 2017-) 0.5 mL INTRAMUSCULAR ONCE (IMMUNIZATION) - escitalopram oxalate 10 mg tab(s) (LEXAPRO) 10 mg ORAL DAILY - gabapentin 300 mg cap(s) (NEURONTIN) 300 mg ORAL TID - adult multivitamin 10 mL, folic acid 1 mg in NaCl 0.9% 1,000 mL INTRAVENOUS q 24 HR And - magnesium sulfate in water 2 g in sterile water 50 ml 2 g INTRAVENOUS q 24 HR - [START ON 08/24/2018] chlordiazePOXIDE 10 mg cap(s) (LIBRIUM) 10 mg ORAL QID DATA: Diagnostic tests reviewed for today's visit: Most recent labs and imaging results. Disposition: Home URINE OUTPUT: Intake/Output Summary (Last 24 hours) at 08/23/2018 1253 Last data filed at 08/22/2018 1749 Gross per 24 hour Intake 300 ml Output ? Net 300 ml LABORATORY: CBC, Coags, BMP, Mg, Phos Recent Labs 08/20/18 2315 WBC 6.66 HB 17.0* HCT 47.2* PLT 278 NA 136 K 3.6* CHLOR 97 CO2 26 BUN 5* CREAT 0.69 GLUC 124* CA 9.1 MG 2.2 TSH Date Value Ref Range Status 06/30/2012 1.540 0.400 - 5.500 uU/mL Final Comment: If patient is , TSH reference range may vary with gestational period: 1st Trimester 0.30 - 4.50 uIU/mL 2nd Trimester 0.50 - 4.60 uIU/mL 3rd Trimester 0.80 - 5.20 uIU/mL Liver Function, Amylase, AND Lipase Recent Labs 08/20/18 2315 TPROT 7.5 ALB 4.6 ALT 31 AST 44* ALKPHOS 152* TBILI 0.2 Cardiac Enzymes ABGs SIGNATURE: Patsy Juarez MD DATE: August 23, 2018 Normal [facility] PROGRESSon 08-22-2018 Protein mass conc HNO ID: [id number] Author: Lian Aparicio Service: ? Author Type: Physician Type: Progress Notes Filed: 10/18/2018 10:26 PM Note Text: [facility] - General Progress Note KAREN SOLIS : 1970 AGE: 48 SEX: F CSN: [id number] HOSP C: [facility] LOCATION: [facility] [place] ATTENDING PHYSICIAN: Bill Patten M.D. DATE OF EVALUATION: 08/22/2018 This is a patient who was admitted to the Detox Unit for alcohol abuse, was found to be intoxicated, going through withdrawal tremor, fatigue, generalized. The patient has no chest pain. No shortness of breath. Reports mild nausea. ASSESSMENT AND PLAN: 1. Alcohol abuse with intoxication. Continue the detox protocol. Vitamin replacement, banana bag. 2. Chronic obstructive pulmonary disease, aerosol treatment. 3. Elevated LFTs. Follow up CMP. 4. Hyperglycemia, recommend outpatient HbA1c. Discussed with the Detox Unit. PAST MEDICAL HISTORY Diagnosis Date - Chronic obstructive pulmonary disease (COPD) ([facility]) Social History Socioeconomic History Marital status: Unknown Spouse name: Not on file Number of children: Not on file Years of education: Not on file Highest education level: Not on file Social Needs Financial resource strain: Not on file Food insecurity - worry: Not on file Food insecurity - inability: Not on file Transportation needs - medical: Not on file Transportation needs - non-medical: Not on file Occupational History Not on file Tobacco Use Smoking status: Never Smoker Smokeless tobacco: Never Used Substance and Sexual Activity Alcohol use: Yes Comment: 15 beers a day for about a year. Drug use: No Sexual activity: Not on file Other Topics Concerns: Not on file Social History Narrative Not on file No family history on file. PAST SURGICAL HISTORY Procedure Laterality Date - HYSTERECTOMY HX R.O.S negative other than HPI AND PMH all other SYS reviewed and negative. [facility] Most recent images Reviewed Last EKG/Rhythm reviewed Med list reviewed per MAR IANDOs reviewed VS noted per RN Chart GENERAL: o x 3 in distress. SKIN: No rashes . ENT mucosa, Normal/nose normal NECK: no jugulovenous distention NO lymphadenopathy LUNGS:No wheezing,no ronchi no rales. CARDIAC: S1 and S2 ABDOMEN: Abdomen soft, non-tender. EXTREMITIES: Extremities normal. NEURO: non focal PULSES: + pedal / radial Lian Aparicio M.D. [facility] HNO ID: [id number] Author: Gifty De Luna (Lsw) Service: Art Therapy Author Type: Art Therapist Type: Allied Health Filed: 08/21/2018 1:49 PM Note Text: THERAPEUTIC PROGRAMMING ASSESSMENT SERVICE DATE: 08/21/2018 SERVICE TIME: 1:48 PM RECOMMENDATIONS: Patient not available ACTIVITIES OF DAILY LIVING (Difficulty in the following ADL areas): Unable to assess GENERAL OBSERVATIONS: Sleeping ASSESSMENT COMPLETED: No: Patient not available, Pt sleeping multiple times therapist attempted to assess. Pt last on [facility] 2012. Therapist will continue to encourage her to attend groups once she is awake/alert. SIGNATURE: Gifty De Luna LPC, ATR, LSW PATIENT NAME: Karen Solis DATE: August 21, 2018 TIME: 1:48 PM PAGER/CONTACT #: [facility] HNO ID: [id number] Author: Gifty De Luna (Lsw) Service: Art Therapy Author Type: Art Therapist Type: Allied Health Filed: 08/21/2018 2:09 PM Note Text: GROUP PROGRESS NOTE SERVICE DATE: 08/21/2018 SERVICE TIME: 01:45 PM Length (minutes): 15 Attendance: Sleeping Participation Level: Did Not Attend GROUP PARTICIPATION: Group Topics: Art Therapy: Directive - [employer] SIGNATURE: Gifty De Luna LPC, ATR, LSW PATIENT NAME: Karen Solis DATE: August 21, 2018 TIME: 2:[address] [facility] ALLIED HEALTH HNO ID: [id number] Author: Gifty De Luna (Lsw) Service: Art Therapy Author Type: Art Therapist Type: Allied Health Filed: 08/21/2018 11:22 AM Note Text: GROUP PROGRESS NOTE SERVICE DATE: 08/21/2018 SERVICE TIME: 11:00 AM Length (minutes): 30 Attendance: Sleeping Participation Level: Did Not Attend GROUP PARTICIPATION: Group Topics: Community Resources: Alcoholics Anonymous SIGNATURE: Gifty De Luna ELOYATR, AUTOMATIC CHIEF PATIENT NAME: Karen Solis DATE: August 21, 2018 TIME: 11:22 AM [facility] HEALTH HNO ID: [id number] Author: Gifty De Luna (Lsw) Service: Art Therapy Author Type: Art Therapist Type: Allied Health Filed: 08/21/2018 9:43 AM Note Text: GROUP PROGRESS NOTE SERVICE DATE: 08/21/2018 SERVICE TIME: 9:15 AM Length (minutes): 15 Attendance: Sleeping Participation Level: Did Not Attend GROUP PARTICIPATION: Group Topics: Community Meeting: Reflective Quotes, Symptom AND Mood Check-In and Treatment Progress SIGNATURE: Gifty De LunaELOYATR, AUTOMATIC CHIEF PATIENT NAME: Karen Solis DATE: August 21, 2018 TIME: 9:[address] [facility] CBC and Differentialon 08-21 Abs Baso 0.05 k/uL Normal <0.11 [facility] Comment on above: Performed By: #### C BCDIF, ALCO, CMP, MG1 #### [place] [address] Abs Prentiss 0.69 k/uL Normal <0.87 [facility] Comment on above: Performed By: #### C BCDIF, ALCO, CMP, MG1 #### [place] [address] Abs Neut 3.91 k/uL Normal 1.45-7.50 [facility] Comment on above: Performed By: #### C BCDIF, ALCO, CMP, MG1 #### [place] [address] Basophils/100 WBC (Bld) 0.8 % Normal [facility] Comment on above: Performed By: #### C BCDIF, ALCO, CMP, MG1 #### [place] [address] Eosinophils #/vol (Bld) 0.12 10*3/uL Normal <0.46 [facility] Comment on above: Performed By: #### C BCDIF, ALCO, CMP, MG1 #### [place] [address] Eosinophils/100 WBC (Bld) 1.8 % Normal [facility] Comment on above: Performed By: #### C BCDIF, ALCO, CMP, MG1 #### [place] [address] Erythrocyte distribution width Ratio (RBC) 14.2 % Normal 11.5-15.0 [facility] Comment on above: Performed By: #### C BCDIF, ALCO, CMP, MG1 #### [place] [address] Hematocrit Volume Fraction (Bld) 47.2 % High 36.0-46.0 [facility] Comment on above: Performed By: #### C BCDIF, ALCO, CMP, MG1 #### [place] [address] Hemoglobin mass conc (Bld) 17.0 g/dL High 11.5-15.5 [facility] Comment on above: Performed By: #### C BCDIF, ALCO, CMP, MG1 #### [place] [address] Lymphocytes #/vol (Bld) 1.89 10*3/uL Normal 1.00-4.00 [facility] Comment on above: Performed By: #### C BCDIF, ALCO, CMP, MG1 #### [place] [address] Lymphocytes/100 WBC (Bld) 28.4 % Normal [facility] Comment on above: Performed By: #### C BCDIF, ALCO, CMP, MG1 #### [place] [address] MCH Entitic mass (RBC) 32.7 pG Normal 26.0-34.0 [facility] Comment on above: Performed By: #### C BCDIF, ALCO, CMP, MG1 #### [place] [address] MCHC mass conc (RBC) 36.0 g/dL Normal 30.5-36.0 [facility] Comment on above: Performed By: #### C BCDIF, ALCO, CMP, MG1 #### [place] [address] MCV Entitic volume (RBC) 90.8 fL Normal 80.0-100.0 [facility] Comment on above: Performed By: #### C BCDIF, ALCO, CMP, MG1 #### [place] [address] Monocytes/100 WBC (Bld) 10.4 % Normal [facility] Comment on above: Performed By: #### C BCDIF, ALCO, CMP, MG1 #### [place] [address] Neutrophils/100 WBC (Bld) 58.6 % Normal [facility] Comment on above: Performed By: #### C BCDIF, ALCO, CMP, MG1 #### [place] [address] NRBCs 0.0 /100 WBC Normal 0 [facility] Comment on above: Performed By: #### C BCDIF, ALCO, CMP, MG1 #### [place] [address] Platelet mean volume Entitic volume (Bld) 9.1 fL Normal 9.0-12.7 [facility] Comment on above: Performed By: #### C BCDIF, ALCO, CMP, MG1 #### [place] [address] Platelets #/vol (Bld) 278 10*3/uL Normal 150-400 [facility] Comment on above: Performed By: #### C BCDIF, ALCO, CMP, MG1 #### [place] [address] RBC #/vol (Bld) 5.20 10*6/uL Normal 3.90-5.20 [facility] Comment on above: Performed By: #### C BCDIF, ALCO, CMP, MG1 #### [place] [address] WBC #/vol (Bld) 6.66 10*3/uL Normal 3.70-11.00 [facility] Comment on above: Performed By: #### C BCDIF, ALCO, CMP, MG1 #### [place] [address] Comp Metabolic Panelon 08-21 Albumin mass conc 4.6 g/dL Normal 3.9-4.9 [facility] Comment on above: Performed By: #### C BCDIF, ALCO, CMP, MG1 ####[place] [id number] ALP enzyme act/vol 152 U/L High 34-123 [facility] Comment on above: Performed By: #### C BCDIF, ALCO, CMP, MG1 ####[place] [id number] ALT enzyme act/vol 31 U/L Normal 7-38 [facility] Comment on above: Performed By: #### C BCDIF, ALCO, CMP, MG1 ####[place] [id number] Anion gap molar conc 13 mmol/L Normal 9-18 [facility] Comment on above: Performed By: #### C BCDIF, ALCO, CMP, MG1 ####[place] [id number] AST enzyme act/vol 44 U/L High 13-35 [facility] Comment on above: Performed By: #### C BCDIF, ALCO, CMP, MG1 ####[place] [id number] Bilirubin mass conc 0.2 mg/dL Normal 0.2-1.3 [facility] Comment on above: Performed By: #### C BCDIF, ALCO, CMP, MG1 ####[place] [id number] Calcium mass conc 9.1 mg/dL Normal 8.5-10.2 [facility] Comment on above: Performed By: #### C BCDIF, ALCO, CMP, MG1 ####[place] [id number] Chloride molar conc 97 mmol/L Normal 97-105 [facility] Comment on above: Performed By: #### C BCDIF, ALCO, CMP, MG1 ####[place] [id number] CO2 molar conc 26 mmol/L Normal 22-30 [facility] Comment on above: Performed By: #### C BCDIF, ALCO, CMP, MG1 ####[place] [id number] Creatinine mass conc 0.69 mg/dL Normal 0.58-0.96 [facility] Comment on above: Performed By: #### C BCDIF, ALCO, CMP, MG1 ####[place] [id number] eGFR- Amer. >60 Normal >60 [facility] Comment on above: Performed By: #### C BCDIF, ALCO, CMP, MG1 ####[place] [id number] GFR/1.73 sq M predicted among non-blacks MDRD vol rate/area (S/P/Bld) mL/min/{1.73_m2} Normal >60 [facility] Comment on above: Result Comment: eGFR (Estimated GFR) Units of measure: mL/min/1.73 meters squared eGFR is derived from the reexpressed MDRD Study equation using the following parameters: serum creatinine, age, gender and race. The creatinine assay has been calibrated to be traceable to IDMS. An eGFR <60 mL/min/1.73m2 for >3 months is consistent with chronic kidney disease. Refer to KDOQI guidelines for clinical interpretation. In patients with unstable renal function, e.g. those with acute kidney injury, the eGFR may not accurately reflect actual GFR. Performed By: #### C BCDIF, ALCO, CMP, MG1 ####[place] [id number] Glucose mass conc 124 mg/dL High 74-99 [facility] Comment on above: Performed By: #### C BCDIF, ALCO, CMP, MG1 ####[place] [id number] Potassium molar conc 3.6 mmol/L Low 3.7-5.1 [facility] Comment on above: Performed By: #### C BCDIF, ALCO, CMP, MG1 ####[place] [id number] Protein mass conc 7.5 g/dL Normal 6.3-8.0 [facility] Comment on above: Performed By: #### C BCDIF, ALCO, CMP, MG1 ####[place] [id number] Sodium molar conc 136 mmol/L Normal 136-144 [facility] Comment on above: Performed By: #### C BCDIF, ALCO, CMP, MG1 ####[place] [id number] Urea nitrogen mass conc 5 mg/dL Low 7-21 L [facility] Comment on above: Performed By: #### C BCDIF, ALCO, CMP, MG1 ####[facility] [id number] ECG COMPLETEon 08-21-2018 ECG COMPLETE NAME : KAREN SOLIS PID : [id number] : 1970 Gender : Female Race : ORD : [id number] Procedure Date : Aug 20 2018 23:08:21 Edit Date : Aug 22 2018 10:03:53 Diagnosis:SINUS RHYTHM PROBABLE LEFT ATRIAL ABNORMALITY PROBABLE INFERIOR INFARCT, OLD BORDERLINE PROLONGED QT INTERVAL Abnormal ECG No Stemi ROSA MARIA 08/20 @ 2328 Confirmed by DO CRANE NICHOLAS ([id number]), editor trade journal DIONY MASCORRO ([id number]) on 08/22/2018 10:03:50 AM Ventricular Rate : 94 BPM Atrial Rate : 94 BPM P-R Interval : 196 ms QRS Duration : 82 ms Q-T Interval : 400 ms QTC Calculation(Bezet) : 500 ms P [place] : 74 degrees R [place] : 23 degrees T [place] : 46 degrees Test Reason : Pre-OP Location : 502 : [facility] 5 Overread By : DO CRANE NICHOLAS Edited By : DIONY MASCORRO Referred By : , Acquired by : , [facility] ED NOTEon 08-21-2018 ED NOTE HNO ID: [id number] Author: Mary MoctezumaRn) MANI Quintana Service: (none) Author Type: Registered Nurse Type: ED Notes Filed: 08/21/2018 12:00 AM Note Text: Patient resting in bed, rise and fall of chest observed. Safety maintained and will continue to monitor [facility] ED NOTE HNO ID: [id number] Author: Mary MoctezumaRn) MANI Quintana Service: (none) Author Type: Registered Nurse Type: ED Notes Filed: 08/20/2018 11:38 PM Note Text: Medication given. Patient educated on medication and verbalized understanding. Patient agreeable with POC. Will continue to monitor. [facility] ED NOTE HNO ID: [id number] Author: Mary MoctezumaRn) Lilian, MANI Service: (none) Author Type: Registered Nurse Type: ED Notes Filed: 08/20/2018 11:26 PM Note Text: Intake at bedside [facility] ED NOTE HNO ID: [id number] Author: Mary (Rn) MANI Quintana Service: (none) Author Type: Registered Nurse Type: ED Notes Filed: 08/20/2018 11:14 PM Note Text: Labs were drawn and sent. [facility] ED NOTE HNO ID: [id number] Author: Mary MoctezumaRn) MANI Quintana Service: (none) Author Type: Registered Nurse Type: ED Notes Filed: 08/20/2018 11:11 PM Note Text: Medication given. Patient educated on medication and verbalized understanding. Patient agreeable with POC. Will continue to monitor. [facility] ED NOTE HNO ID: [id number] Author: Gwendolyn MoctezumaRn) Clem Rod RN Service: Nursing Author Type: Registered Nurse Type: ED Notes Filed: 08/20/2018 10:55 PM Note Text: Clean catch urine specimen obtained and sent. [facility] ED NOTE HNO ID: [id number] Author: Rubén MoctezumaRn) MANI Gray Service: (none) Author Type: Registered Nurse Type: ED Notes Filed: 08/20/2018 10:53 PM Note Text: Patient has an ID Band on, family at bedside, bed in lowest locked position. Patient provided hospital gown and pants and non slip socks. Patient to restroom to provide sample at this time. [facility] ED PROV NOTEon 08-21-2018 Protein mass conc HNO ID: [id number] Author: Ramin Crane DO Service: Emergency Medicine Author Type: Physician Type: ED Provider Notes Filed: 08/20/2018 11:47 PM Note Text: ED Provider Note Patient Name: Karen Solis SERVICE DATE: 08/20/18 History Patient presents with: Alcohol Problem Patient's age 48-year-old female presenting for alcohol detox. States that she drinks about 15 beers a day. Last drink about a half hour prior to arrival. Has been drinking for the last 2-3 years. Did detox back in 2012. Denies any history of seizures with alcohol withdrawal. States that she gets very anxious and tremorous. States symptoms will start to resolve when she starts drinking again. Denies any drug use. Denies any smoking history. Currently states that she just doesn't feel well from all of her drinking. Denies any complaints of any pain. Denies any nausea or vomiting. History provided by: Patient, medical records and relative tax adjuster used: No PAST MEDICAL HISTORY Diagnosis Date - Chronic obstructive pulmonary disease (COPD) (HCC) PAST SURGICAL HISTORY Procedure Laterality Date - HYSTERECTOMY HX No family history on file. Social History Social History Main Topics - Smoking status: Never Smoker - Smokeless tobacco: Never Used - Alcohol use Yes Comment: 15 beers a day for about a year. - Drug use: No - Sexual activity: Not on file ALLERGIES No Known Allergies Review of Systems Constitutional: Negative for fever. Respiratory: Negative for shortness of breath. Cardiovascular: Negative for chest pain. Gastrointestinal: Negative for nausea and vomiting. Musculoskeletal: Negative for myalgias. Neurological: Negative for headaches. Psychiatric/Behavio ral: The patient is nervous/anxious. All other systems reviewed and are negative. Physical Exam BP 142/98 Pulse 110 Temp (Src) 97.7 (Oral) Resp 14 SpO2 99% Physical Exam Constitutional: She is oriented to person, place, and time. No distress. HENT: Head: Atraumatic. Right Ear: External ear normal. Left Ear: External ear normal. Nose: Nose normal. Eyes: Pupils are equal, round, and reactive to light. Conjunctivae and EOM are normal. Right eye exhibits no discharge. Left eye exhibits no discharge. Neck: No JVD present. Cardiovascular: Normal rate and regular rhythm. Pulmonary/Chest: Effort normal and breath sounds normal. No respiratory distress. She has no wheezes. Abdominal: She exhibits no distension. Musculoskeletal: She exhibits no deformity. Neurological: She is alert and oriented to person, place, and time. Coordination normal. Skin: Skin is warm. No pallor. Psychiatric: She has a normal mood and affect. Her behavior is normal. Her speech is not slurred. Nursing note and vitals reviewed. Diagnostic Testing ED Labs Ordered and Reviewed URINALYSIS WITH MICROSCOPIC (AK,AV,EU,FV,HL,KAY, MM,SP) - Abnormal; Notable for the following: Result Value Ref Range Color Straw (*) Yellow Hemoglobin/Blood,Ur Trace (*) Negative Leukest Trace (*) Negative All other components within normal limits URINE DRUG SCREEN (AK,AV,EU,FV,HL,KAY, MM,SP) - Abnormal; Notable for the following: Ethanol, Urine 291 (*) <11 mg/dL All other components within normal limits COMPREHENSIVE METABOLIC PANEL (AK,AV,EU,FV,HL,KAY, MM,SP) MAGNESIUM BLOOD (AK,AV,EU,FV,HL,KAY, MM,SP) ALCOHOL / ETHANOL BLOOD (AK,AV,EU,FV,HL,KAY, MM,SP) CBC + AUTO DIFF (AK,AV,EU,FV,HL,KAY, MM,SP) HCG QUALITATIVE URINE (AK,AV,EU,FV,HL,KAY, MM,SP) EKG INTERPRETATION: RHYTHM: Normal sinus rhythm at 94 beats per minute AXIS: Normal axis INTERVALS: Normal CO interval QRS COMPLEX: Normal ST SEGMENT: Normal ST-T segments QT INTERVAL: Prolonged at 501 COMPARED WITH PRIOR: None available Interpretation by ED physician. Procedures ED Course / Clinical Impression Clinical Impressions as of Aug 20 2345 Alcohol abuse Hypokalemia MDM / Disposition / Plan Patient medically clear. Given multivitamin, folic acid and thiamine. Started on liter fluid. Given first dose of Librium. Intake evaluated. Psychiatry has accepted. We'll transfer him to the detox floor when a bed is available. Currently no severe withdrawal symptoms now. No other complaints. Medically clear for admission Disposition The patient was admitted. Admitted to Psychiatry. Condition at disposition is stable. SIGNATURE: DO Ramin Ventura DO 08/20/18 2347 Normal [facility] Ethanolon 08-21-2018 Ethanol mass conc 247 mg/dL High <11 [facility] Comment on above: Performed By: #### C BCDIF, ALCO, CMP, MG1 #### [place] [address] HCG Qual, Urineon 08-21-2018 HCG.beta subunit ( test) Ql (U) Negative Normal Negative [facility] Comment on above: Performed By: #### U HCG, UAWMIC, UTOX2 #### [place] [address] Magnesiumon 08-21-2018 Magnesium mass conc 2.2 mg/dL Normal 1.7-2.3 [facility] Comment on above: Performed By: #### C BCDIF, ALCO, CMP, MG1 ####[address], [place] [id number] NURSING PROGon 08-21-2018 Protein mass conc HNO ID: [id number] Author: Padilla (Rn) MANI Lewis Service: Nursing Author Type: Registered Nurse Type: Nursing Progress Note Filed: 08/21/2018 6:37 AM Note Text: Nursing Progress Note Patient Name: Karen Solis Patient Location: [id number]* SENSITIVE [facility] Nursing Admission Note PATIENT NAME: Karen Solis SERVICE DATE: 08/21/2018 SERVICE TIME: 0415 Level of care:Inpatient Hospital Referred by: Silvia LOU 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05 kg/m? ALLERGIES No Known Allergies No current facility-administer ed medications on file prior to encounter. Current Outpatient Medications on File Prior to Encounter: mirtazapine 15 mg tablet Take 1 tablet by mouth daily at bedtime. gabapentin 300 mg capsule Take 1 tab twice daily for 1 week, then 1 tab daily for 1 week, then stop. multivitamins-iron, hematinic, Tab Take 1 tablet by mouth daily with breakfast. nicotine 21 mg/24 hr Apply 1 Patch as directed once daily. citalopram 20 mg tablet Take 1.5 tablets daily for six days, then 1 tablet daily for six days, then 0.5 tablets daily for six days, then stop. sucralfate 1 gram tablet Take 1 tablet by mouth four times daily. tiotropium (SPIRIVA WITH HANDIHALER) 18 mcg inhalation capsule Inhale 18 mcg as instructed once daily. fluticasone-salmete rol HFA 45-21 mcg/actuation inhaler Inhale 2 Puffs as instructed twice daily. Medication reconciliation Done:YES Mental status; AANDOx4, Denies Seizure, Denies BT's, Positive Black Outs Head to toe assessment: Patient presented to the [facility] dressed in a hospital gown with all belongings in a separate bag. Skin assessment WNL and unremarkable, completed by Female Nurse (Dee Dee SINGLETON) CIWA Scale Score:6 COWS Scale Score:n/a Suicide Risk Assessment Completed?No Spiritual assessment completed:YES Pharmacy screen/ breathalyzer results: Serum ETOH = 247 at 2315 Unit tour given:YES Belongings searched:YES Releases signed:YES for , Shadi Solis Padilla Lewis RN This note was completed by: Padilla Lewis RN [facility] Protein mass conc HNO ID: [id number] Author: Padilla (Rn) MANI Lewis Service: Nursing Author Type: Registered Nurse Type: Nursing Progress Note Filed: 08/21/2018 6:30 AM Note Text: Nursing Progress Note Patient Name: Karen Solis Patient Location: [address]/[place] [address]* SENSITIVE [facility] SUICIDE RISK ASSESSMENT PATIENT NAME: Karen Solis SERVICE DATE: 08/21/2018 SERVICE TIME: 0410 LETHALITY FACTORS: Access to Means: Any firearms in home?No Moved a firearm recently?No Any current suicide plan not involving firearm? No Is patient an inpatient in [facility]?Yes--does any suicide plan suggest risk of harm while inpatient? No. Patient has not described any current suicide thinking or plan. Presence of a Plan or Final Arrangements: Has pt taken any actions to follow a suicide plan? No--never had a serious suicide plan. Demographic Factors: Marital Status: Ethnicity:White(Hig hest risk is ) Gender:female (Highest risk is male) Age: [age] year old (Highest risk is >65) Family history of suicide?No Evidence of Intentional Self-Harm History of prior suicide attempts?No Past thoughts of self-harm?No Self-Mutilation: History of past self-mutilation without expressed suicide intent?No Sexual Orientation: Is patient homosexual or bisexual?No Recent Increase in Drug or Alcohol Use?Yes Rural or Isolated Home Environment?No PROTECTIVE FACTORS: Clinician Judgment of Insight:good Social Resources: Family or friends who are concerned about pt?Yes Lives with others?Yes Presence of Dependents(e.g. children, elderly parents, pets)?Yes Recent Psychiatric Inpatient Treatment?No Presence of Meaningful Daily Activities?Yes Currently employed?No Muslim Affiliation?Yes Therapeutic [place]: Does pt believe treatment can help his/her negative feelings?Yes History of good medication compliance in past?Yes FORMULATION OF SUICIDE RISK: low Will any interventions be undertaken to address above-listed Lethality or Protective Factors? Reduce alcohol and drug abuse Consult Pastoral Care to improve evangelical affiliation SIGNATURE: Padilla Lewis RN DATE: August 21, 2018 TIME: 6:27 AM Assessment adapted from Suicide Prevention Toolkit for Implementation of NPSG 15A by [facility] Resources This note was completed by: Padilla Lewis RN Normal [facility] PROGRESSon 08-21-2018 Protein mass conc HNO ID: [id number] Author: Lian Aparicio Service: ? Author Type: Physician Type: Progress Notes Filed: 10/17/2018 7:16 PM Note Text: [facility] - General Progress Note KAREN SOLIS : 1970 AGE: 48 SEX: F CSN: [id number] HOSP SVC: PSYR [place] [facility] [place] ATTENDING PHYSICIAN: Bill Patten M.D. DATE OF EVALUATION: 08/21/2018 The patient was admitted to the Inpatient Psych Unit with alcohol abuse and intoxication, going through severe withdrawal symptoms including tremor, nausea, restlessness, fatigue, generalized. ASSESSMENT AND PLAN: 1. Alcohol abuse with intoxication. Admitted to the Inpatient Detox Unit. Detox protocol, banana bag. 2. Elevated LFTs. Follow up CMP. 3. Chronic obstructive pulmonary disease, on aerosol treatment. Lian Aparicio M.D. Internal Medicine JOYNER:[id number] /[id number] [facility] Protein mass conc HNO ID: [id number] Author: Downtime Note Service: ? Author Type: ? Type: Progress Notes Filed: 08/21/2018 5:27 AM Note Text: Epic Scheduled Downtime: 08/21/2018 1:00:00 AM to 08/21/2018 5:17:[address] [facility] Toxicology Screen,U[place] 08-21 Amphetamines, Urine Negative Normal Negative [facility] Comment on above: Result Comment: Cuto ff threshold at 1000 ng/mL. Performed By: #### U HCG, UAWMIC, UTOX2 #### [place] [id number] Barbiturates, Urine Negative Normal Negative [facility] Comment on above: Result Comment: Cuto ff threshold at 200 ng/mL. Performed By: #### U HCG, UAWMIC, UTOX2 #### [place] [id number] Benzodiazepines, Ur Negative Normal Negative [facility] Comment on above: Result Comment: Cuto ff threshold at 200 ng/mL. Performed By: #### U HCG, UAWMIC, UTOX2 #### [place] [address] Cannabinoids, Urine Negative Normal Negative [facility] Comment on above: Result Comment: Cuto ff threshold at 50 ng/mL. Performed By: #### U HCG, UAWMIC, UTOX2 #### [place] [phone] Cocaine, Urine Negative Normal Negative [facility] Comment on above: Result Comment: Cuto ff threshold at 300 ng/mL. Performed By: #### U HCG, UAWMIC, UTOX2 #### [place] [address] Ethanol, Urine 291 mg/dL High <11 [facility] Comment on above: Performed By: #### U HCG, UAWMIC, UTOX2 #### [place] [address] Opiates, Urine Negative Normal Negative [facility] Comment on above: Result Comment: Cuto ff threshold at 300 ng/mL. Performed By: #### U HCG, UAWMIC, UTOX2 #### [place] [address] Oxycodone, Urine Negative Normal Negative [facility] Comment on above: Result Comment: Cuto ff threshold at 100 ng/mL. Comment: Immunoassay screen only. Cross reactivity with other substances can occur with immunoassay screening. Detection of any drug(s) in this urine toxicology panel is presumptive only. These tests are for medical purposes only and should not be used for compliance monitoring, legal, or forensic use. Samples should be within normal physiological conditions (e.g. pH). This assay does not include adulteration/specimen validity testing. In clinical settings, confirmatory testing is at the practitioner's discretion [1]. If clinically indicated, confirmation by high specificity, quantitative methodology, which includes adulteration/specimen validity testing, may be requested on the same specimen through Client Services ([phone]) if contacted within 48 hours of initial testing. [1]Substance Abuse and Mental Health Services Administration (2012). Clinical Drug Testing in Primary Care Technical Assistance Publication Series 32. Department of Health and Human Services, [place], p.10. Performed By: #### U HCG, UAWMIC, UTOX2 #### [place] [address] Phencyclidine, Urine Negative Normal Negative [facility] Comment on above: Result Comment: Cuto ff threshold at 25 ng/mL. Performed By: #### U HCG, UAWMIC, UTOX2 #### [place] [address] Urinalysis with Microscopico n 08-21-2018 Bilirubin, Urine Negative Normal Negative [facility] Comment on above: Performed By: #### U HCG, UAWMIC, UTOX2 #### [place] [address] Cast SEE COMMENT Normal [address] [place] [address] Comment on above: Result Comment: 0 Performed By: #### U HCG, UAWMIC, UTOX2 #### [place] [address] Clarity Nom (U) Clear Normal Clear [facility] Comment on above: Performed By: #### U HCG, UAWMIC, UTOX2 #### [place] [address] Color Nom (U) Straw Critically abnormal Yellow [facility] Comment on above: Performed By: #### U HCG, UAWMIC, UTOX2 #### [place] [address] Epithelial cells LM.HPF #/area (Urine sed) SEE COMMENT Normal [facility] Comment on above: Result Comment: Squa mous 2-5 Performed By: #### U HCG, UAWMIC, UTOX2 #### [place] [address] Glucose Ql (U) Negative Normal [facility] Comment on above: Performed By: #### U HCG, UAWMIC, UTOX2 #### [place] [address] Hemoglobin/Blood,Ur Trace Critically abnormal Negative [facility] Comment on above: Performed By: #### U HCG, UAWMIC, UTOX2 #### [place] [address] Ketones Ql (U) Negative Normal [facility] Comment on above: Performed By: #### U HCG, UAWMIC, UTOX2 #### [place] [address] Leukest Trace Critically abnormal Negative [facility] Comment on above: Performed By: #### U HCG, UAWMIC, UTOX2 #### [place] [address] Nitrite Ql (U) Negative Normal Negative [facility] Comment on above: Performed By: #### U HCG, UAWMIC, UTOX2 #### [place] [address] pH (Bld) 6.0 Normal 4.5-8.0 [facility] Comment on above: Performed By: #### U HCG, UAWMIC, UTOX2 #### [place] [address] Protein mass conc (U) Negative Normal Negative [facility] Comment on above: Performed By: #### U HCG, UAWMIC, UTOX2 #### [place] [address] RBC #/vol (U) 0-3 Normal 0-3 [facility] Comment on above: Performed By: #### U HCG, UAWMIC, UTOX2 #### [place] [address] Specific [employer], Ur <=1.005 Normal 1.005-1.030 [facility] Comment on above: Performed By: #### U HCG, UAWMIC, UTOX2 #### [place] [address] Urobilinogen Qn (U) 0.2 Normal 0.2-1.0 [facility] Comment on above: Performed By: #### U HCG, UAWMIC, UTOX2 #### [place] [address] WBC #/vol (Bld) 0-5 Normal 0-5 [facility] Comment on above: Performed By: #### U HCG, UAWMIC, UTOX2 #### [place] [address] HISTORY PHYSICALon 9 HISTORY PHYSICAL HNO ID: [id number] Author: Lian Aparicio Service: ? Author Type: Physician Type: HANDP Filed: 08/23/2018 4:01 PM Note Text: [facility] - History and Physical KAREN SOLIS : 1970 AGE: 48 SEX: F CSN: [id number] HOSP [facility]: [facility] LOCATION[place] [facility] [place] ATTENDING PHYSICIAN: NALINI NI ADMIT DATE: 08/20/2018 SUBJECTIVE: This is a patient with a past medical history of COPD and alcohol abuse, came into the hospital, has been drinking heavily about 10-15 beers per day. The patient has felt that she is going through withdrawal including shakiness, tremor, nausea, . No increasing or decreasing factors. No chest pain. No history of COPD. She quit smoking. PAST MEDICAL HISTORY Diagnosis Date - Chronic obstructive pulmonary disease (COPD) ([facility]) Social History Socioeconomic History Marital status: Spouse name: Not on file Number of children: Not on file Years of education: Not on file Highest education level: Not on file Social Needs Financial resource strain: Not on file Food insecurity - worry: Not on file Food insecurity - inability: Not on file Transportation needs - medical: Not on file Transportation needs - non-medical: Not on file Occupational History Not on file Tobacco Use Smoking status: Never Smoker Smokeless tobacco: Never Used Substance and Sexual Activity Alcohol use: Yes Comment: 15 beers a day for about a year. Drug use: No Sexual activity: Not on file Other Topics Concerns: Not on file Social History Narrative Not on file No family history on file. PAST SURGICAL HISTORY Procedure Laterality Date - HYSTERECTOMY HX R.O.S negative other than HPI AND PMH all other SYS reviewed and negative. Most recent labs reviewed [facility] consultants notes reviewed Most recent images Reviewed Last EKG/Rhythm reviewed Med list reviewed per AAKASH Hunter reviewed VS noted per RN Chart GENERAL: o x 3 in distress. SKIN: No rashes . ENT mucosa, Normal/nose normal NECK: no jugulovenous distention NO lymphadenopathy LUNGS:No wheezing,no ronchi no rales. CARDIAC: S1 and S2 ABDOMEN: Abdomen soft, non-tender. EXTREMITIES: Extremities normal. NEURO: non focal PULSES: + pedal / radial No edema No goiter No carotid bruits. ASSESSMENT/PLAN: 1. Alcohol abuse with daily heavily drinking. Admit to the inpatient detox Unit. Detox protocol, p.r.n. treatment with Vitamin and Librium. 2. COPD, recommend PFTs. 3. Elevated LFTs, F/u cmp Lian Aparicio M.D. Internal Medicine [facility] Vital Signs Date Time Vital Sign Value Performing Clinician Facility 07-20-2023 13:15-0500 Body height 170.18 cm Isiah Purcell Other [facility] Other 07-20-2023 13:15-0500 Body mass index (BMI) [Ratio] 22.71 kg/m2 Isiah Purcell Other [facility] Other 07-20-2023 13:15-0500 Body weight 65.77 kg Isiah Purcell Other [facility] [employer] Other 06-10-2023 14:45-0500 Diastolic blood pressure 82 mm[Hg] DO Christin Grullon Work Phone: [facility] 06-10-2023 14:45-0500 Heart rate 70 /min DO Christin Alcocerley Work Phone: [facility] 06-10-2023 14:45-0500 Respiratory rate 16 /min DO Christin Grullon Work Phone: [facility] 06-10-2023 14:45-0500 SaO2% (BldA) [Mass fraction] 96 % DO Christin Grullon Work Phone: [facility] 06-10-2023 14:45-0500 Systolic blood pressure 132 mm[Hg] DO Christin Grullon Work Phone: [facility] 06-10-2023 12:17-0500 Body temperature 97.7 [degF] DO Christin Grullon Work Phone: [facility] 06-10-2023 12:17-0500 Inhaled oxygen flow rate 6 L/min DO Christin Grullon Work Phone: [facility] 06-10-2023 09:27-0500 Body height 167.64 cm DO Christin Grullon Work Phone: [facility] 06-10-2023 09:27-0500 Body mass index (BMI) [Ratio] 23.5 kg/m2 DO Christin Grullon Work Phone: [facility] 06-10-2023 09:27-0500 Body weight 66 kg DO Christin Grullon Work Phone: [facility] 05-25-2023 10:15-0500 Body height 170.18 cm Isiah Riderley Other [facility] Other 05-25-2023 10:15-0500 Body mass index (BMI) [Ratio] 23.02 kg/m2 Isiah Wilfredo Other [facility] Other 05-25-2023 10:15-0500 Body weight 66.68 kg Isiah Purcell Other [facility] Other 05-05-2023 09:20-0500 Diastolic blood pressure 74 mm[Hg] DO Christin Grullon Work Phone: [facility] 05-05-2023 09:20-0500 Heart rate 66 /min DO Christin Grullon Work Phone: [facility] 05-05-2023 09:20-0500 Respiratory rate 16 /min DO Christin Grullon Work Phone: [facility] 05-05-2023 09:20-0500 SaO2% (BldA) [Mass fraction] 100 % DO Christin Grullon Work Phone: [facility] 05-05-2023 09:20-0500 Systolic blood pressure 120 mm[Hg] DO Christin Grullon Work Phone: [facility] 05-05-2023 08:42-0500 Inhaled oxygen flow rate 3 L/min DO Christin Grullon Work Phone: [facility] 05-05-2023 07:59-0500 Body height 167.64 cm DO Christin Grullon Work Phone: [facility] 05-05-2023 07:59-0500 Body weight 63.5 kg DO Christin Grullon Work Phone: [facility] 03-17-2023 14:30-0400 Body height 170.18 cm Christin Mead Other [facility] Other 02-24-2023 14:20-0400 Body height 170.18 cm Clovis Andersen Other [facility] Other 02-24-2023 14:20-0400 Body mass index (BMI) [Ratio] 23.02 kg/m2 Clovis Andersen Other [facility] Other 02-24-2023 14:20-0400 Body weight 66.68 kg Clovis Andersen Other [facility] Other 02-24-2023 14:20-0400 Diastolic blood pressure 70 mm[Hg] Clovis Andersen Other [facility] Other 02-24-2023 14:20-0400 Systolic blood pressure 104 mm[Hg] Clovis Andersen Other [facility] Other 12-05-2022 12:00-0400 Body height 170.18 cm Christin Grullon Other [facility] Other 12-05-2022 12:00-0400 Body mass index (BMI) [Ratio] 20.83 kg/m2 Christin Grullon Other [facility] Other 12-05-2022 12:00-0400 Body weight 60.33 kg Christin Grullon Other [facility] Other 12-05-2022 12:00-0400 Diastolic blood pressure 62 mm[Hg] Christin Grullon Other [facility] Other 12-05-2022 12:00-0400 Respiratory rate 18 /min Christin Grullon Other [facility] Other 12-05-2022 12:00-0400 SaO2% (BldA) [Mass fraction] 98 % Christin Grullon Other [facility] Other 12-05-2022 12:00-0400 Systolic blood pressure 118 mm[Hg] Christin Grullon Other [facility] Other 09-26-2022 11:00-0400 Body height 170.18 cm Pratik Cross Other [facility] Other 09-26-2022 11:00-0400 Body mass index (BMI) [Ratio] 20.36 kg/m2 Pratik Cross Other [facility] Other 09-26-2022 11:00-0400 Body weight 58.97 kg Pratik Cross Other [facility] Other 07-16-2022 16:30-0500 Body height 170.18 cm Christin Grullon Other [facility] Other 07-16-2022 16:30-0500 Body mass index (BMI) [Ratio] 19.58 kg/m2 Christin Grullon Other [facility] Other 07-16-2022 16:30-0500 Body weight 56.7 kg Christin Grullon Other [facility] Other 07-16-2022 16:30-0500 Diastolic blood pressure 82 mm[Hg] Christin Grullon Other [facility] Other 07-16-2022 16:30-0500 Respiratory rate 18 /min Christin Grullon Other [facility] Other 07-16-2022 16:30-0500 SaO2% (BldA) [Mass fraction] 98 % Christin Grullon Other [facility] Other 07-16-2022 16:30-0500 Systolic blood pressure 136 mm[Hg] Christin Grullon Other [facility] Other 07-14-2022 11:00-0500 Body temperature 97.7 [degF] DO Christin Grullon Work Phone: [facility] 07-14-2022 11:00-0500 Diastolic blood pressure 75 mm[Hg] DO Christin Grullon Work Phone: [facility] 07-14-2022 11:00-0500 Heart rate 72 /min DO Christin Grullon Work Phone: [facility] 07-14-2022 11:00-0500 Respiratory rate 20 /min DO Christin Grullon Work Phone: [facility] 07-14-2022 11:00-0500 SaO2% (BldA) [Mass fraction] 98 % DO Christin Alcocerley Work Phone: [facility] 07-14-2022 11:00-0500 Systolic blood pressure 126 mm[Hg] DO Christin Alcocerley Work Phone: [facility] 07-10-2022 16:43-0500 Body weight 0 kg DO Christin Grullon Work Phone: [facility] 05-19-2022 14:15-0500 Body height 170.18 cm Christin Grullon Other [facility] [employer] Other 05-19-2022 14:15-0500 Body mass index (BMI) [Ratio] 19.73 kg/m2 Christin Grullon Other [facility] Other 05-19-2022 14:15-0500 Body weight 57.15 kg Christin Grullon Other [facility] Other 05-19-2022 14:15-0500 Diastolic blood pressure 77 mm[Hg] Christin Grullon Other [facility] Other 05-19-2022 14:15-0500 Respiratory rate 18 /min Christin Grullon Other [facility] Other 05-19-2022 14:15-0500 SaO2% (BldA) [Mass fraction] 99 % Christin Grullon Other [facility] Other 05-19-2022 14:15-0500 Systolic blood pressure 135 mm[Hg] Christin Grullon Other [facility] Other 05-01-2021 11:15-0500 Body height 170.18 cm Christin Grullon Other [facility] Other 05-01-2021 11:15-0500 Body mass index (BMI) [Ratio] 17.85 kg/m2 Christin Grullon Other [facility] Other 05-01-2021 11:15-0500 Body temperature 97.8 [degF] Christin Grullon Other [facility] Other 05-01-2021 11:15-0500 Body weight 51.71 kg Christin Grullon Other [facility] Other 05-01-2021 11:15-0500 Diastolic blood pressure 84 mm[Hg] Christin Grullon Other [facility] Other 05-01-2021 11:15-0500 Respiratory rate 16 /min Christin Grullon Other [facility] Other 05-01-2021 11:15-0500 SaO2% (BldA) [Mass fraction] 100 % Christin Grullon Other [facility] Other 05-01-2021 11:15-0500 Systolic blood pressure 128 mm[Hg] Christin Grullon Other [facility] Other 03-20-2021 14:15-0400 Body height 170.18 cm Christin Grullon Other [facility] Other 03-20-2021 14:15-0400 Body mass index (BMI) [Ratio] 18.32 kg/m2 Christin Grullon Other [facility] Other 03-20-2021 14:15-0400 Body temperature 99 [degF] Christin Grullon Other [facility] Other 03-20-2021 14:15-0400 Body weight 53.07 kg Christin Grullon Other [facility] Other 03-20-2021 14:15-0400 Diastolic blood pressure 84 mm[Hg] Christin Grullon Other [facility] Other 03-20-2021 14:15-0400 Respiratory rate 16 /min Christin Grullon Other [facility] Other 03-20-2021 14:15-0400 SaO2% (BldA) [Mass fraction] 98 % Christin Grullon Other [facility] Other 03-20-2021 14:15-0400 Systolic blood pressure 118 mm[Hg] Christin Grullon Other [facility] Other Encounters Encounter Date Encounter Type Care Provider Facility Start: 07-20-2023 End: 07-20-2023 ambulatory Isiah Purcell Other [facility] Other Start: 07-20-2023 Postop follow up vis it related to original px Isiah Wilfredo [facility] Start: 06-24-2023 End: 06-24-2023 ambulatory Isiah Purcell Other [facility] Other Start: 06-24-2023 Telephone encounter Isiah Purcell [facility] Start: 06-23-2023 End: 06-23-2023 ambulatory Isiah Purcell Facility:[facility] Start: 06-23-2023 Postop follow up vis it related to original px Isiah Wilfredo [facility] Start: 06-23-2023 End: 06-23-2023 ambulatory DO Christin Grullon Work Phone: [facility] Work Phone: Start: 06-23-2023 End: 06-23-2023 Patient encounter procedure DO Christin Grullon Work Phone: [facility] Start: 06-18-2023 End: 06-18-2023 ambulatory Isiah Purcell Other [facility] Other Start: 06-18-2023 Telephone encounter Isiah Purcell [facility] Start: 06-16-2023 End: 06-16-2023 ambulatory Julee Calaveras Other [facility] Other Start: 06-16-2023 Telephone encounter Julee Bill [facility] Start: 06-10-2023 End: 06-10-2023 ambulatory Isiah Purcell Facility:[facility] Start: 06-10-2023 End: 06-10-2023 Admission to same day surgery center DO Christin Grullon Work Phone: [facility] [place] Start: 06-09-2023 End: 06-09-2023 ambulatory Isiah Purcell Other [facility] [employer] Other Start: 06-09-2023 Telephone encounter Isiah Purcell [facility] Start: 06-08-2023 (Procedure) Short Christin Mead [facility] Start: 06-08-2023 End: 06-08-2023 ambulatory Christin Mead Other [facility] [employer] Other Start: 06-01-2023 End: 06-01-2023 ambulatory Isiah Purcell Facility:[facility] Start: 06-01-2023 End: 06-01-2023 ambulatory DO Christin Grullon Work Phone: [facility] Work Phone: Start: 06-01-2023 End: 06-01-2023 Patient encounter procedure DO Christin Grullon Work Phone: [facility] Work Phone: Start: 05-26-2023 End: 05-26-2023 ambulatory Christin Mead Other [facility] Other Start: 05-26-2023 Office outpatient vi sit 25 minutes Christin Mead [facility] [place] Start: 05-25-2023 End: 05-25-2023 ambulatory Isiah Purcell Other [facility] Other Start: 05-25-2023 Encounter by cresencio Grullon [facility] [place] Start: 05-25-2023 Encounter for other preprocedural examination Isiah Purcell [facility] Start: 05-25-2023 Office outpatient vi sit 40 minutes Isiah Purcell [facility] Start: 05-05-2023 (Procedure) Short Christin Mead [facility] Start: 05-05-2023 End: 05-05-2023 ambulatory Christin Mead Facility:[facility] Start: 05-05-2023 End: 05-05-2023 Admission to same [facility] DO Christin Grullon Work Phone: [facility] Work Phone: Start: 05-05-2023 End: 05-05-2023 ambulatory DO Christin Grullon Work Phone: [facility] Work Phone: Start: 05-04-2023 End: 05-04-2023 ambulatory Christin Mead Other [employer] Other Start: 05-04-2023 Telephone encounter Christin [facility] Start: 04-29-2023 End: 04-29-2023 ambulatory Pratik Cross Other [employer] Other Start: 04-29-2023 Office outpatient vi sit 25 minutes Pratik Cross [facility] Start: 04-03-2023 End: 04-03-2023 ambulatory Pratik Cross Other [employer] Other Start: 04-03-2023 Telephone encounter Pratik [facility] Start: 04-02-2023 End: 04-02-2023 ambulatory Christin Grullon Facility:[facility] Start: 04-02-2023 End: 04-02-2023 ambulatory DO Christin Porsha Mitchel Work Phone: [facility] Work Phone: Start: 04-02-2023 End: 04-02-2023 Patient encounter procedure DO Christin Grullon Work Phone: [facility] [address] Work Phone: Start: 03-17-2023 End: 03-17-2023 ambulatory Christin Mead Other [employer] Other Start: 03-17-2023 Office outpatient ne w 45 minutes Christin Mead [facility] [place] Start: 03-17-2023 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 Start: 02-24-2023 End: 02-24-2023 ambulatory Gwendolyn Barron Facility:[facility] Start: 02-24-2023 End: 02-24-2023 Patient encounter procedure DO Christin Grullon Work Phone: [facility] [address] Work Phone: Start: 02-24-2023 End: 02-24-2023 ambulatory DO Christin Grullon Work Phone: [facility] Work Phone: Start: 02-24-2023 Office outpatient ne w 30 minutes Clovis Andersen [facility] Start: 12-31-2022 End: 12-31-2022 ambulatory Christin Grullon Other [employer] Other Start: 12-31-2022 Telephone encounter Christin [facility] [place] Start: 12-22-2022 End: 12-22-2022 ambulatory Christin Grullon Other [email or web address] Other Start: 12-22-2022 Telephone encounter Christin Reyes [facility] [place] Start: 12-05-2022 End: 12-05-2022 ambulatory Christin Grullon Other [employer] Other Start: 12-05-2022 Office outpatient vi sit 15 minutes Christin Grullon [facility] [place] Start: 09-26-2022 End: 09-26-2022 ambulatory Pratik Cross Other [employer] Other Start: 09-26-2022 Office outpatient ne w 45 minutes [facility] Start: 09-24-2022 End: 09-24-2022 ambulatory Christin Grullon Facility:[facility] Start: 09-24-2022 End: 09-24-2022 ambulatory DO Christin Grullon Work Phone: [facility] Work Phone: Start: 09-24-2022 End: 09-24-2022 Patient encounter procedure DO Christin Grullon Work Phone: [facility] [address] Work Phone: Start: 07-31-2022 End: 07-31-2022 ambulatory Christin Grullon Other [employer] Other Start: 07-31-2022 Telephone encounter Christin Reyes [facility] [place] Start: 07-30-2022 End: 07-30-2022 ambulatory Christin Grullon Facility:[facility] Start: 07-30-2022 End: 07-30-2022 ambulatory DO Christin Grullon Work Phone: [facility] Work Phone: Start: 07-30-2022 End: 07-30-2022 Patient encounter procedure DO Christin Grullon Work Phone: [facility] [address] Work Phone: Start: 07-21-2022 Encounter for preprocedural laboratory examination CINDY RODRIGEZ [facility] Start: 07-21-2022 End: 07-21-2022 ambulatory CINDY RODRIGEZ Facility:[facility] Start: 07-18-2022 End: 07-19-2022 ambulatory CINDY RODRIGEZ Facility:[facility] Start: 07-18-2022 End: 07-19-2022 Encounter for preprocedural laboratory examination CINDY RODRIGEZ Facility:[facility] Start: 07-16-2022 End: 07-16-2022 ambulatory Christin Grullon Other [facility] [employer] Other Start: 07-16-2022 Office outpatient vi sit 25 minutes Christin Grullon [facility] [place] Start: 07-14-2022 End: 07-15-2022 ambulatory Jose Vincent Facility:[facility] Start: 07-14-2022 End: 07-14-2022 Admission to same day surgery center DO Christin Grullon Work Phone: [facility] Start: 07-14-2022 End: 07-14-2022 ambulatory DO Christin Grullon Work Phone: [facility] Work Phone: Start: 07-11-2022 End: 07-12-2022 ambulatory CINDY RODRIGEZ Facility:[facility] Start: 07-10-2022 End: 07-10-2022 ambulatory Jose Vincent Facility:[facility] Start: 07-10-2022 End: 07-10-2022 ambulatory DO Christin Grullon Work Phone: [facility] Work Phone: Start: 07-10-2022 End: 07-10-2022 Patient encounter procedure DO Christin Grullon Work Phone: [facility] Work Phone: Start: 07-08-2022 End: 07-08-2022 Patient encounter procedure DO Christin Grullon Work Phone: [facility] Work Phone: Start: 07-08-2022 End: 07-08-2022 ambulatory Christin Grullon [employer] Other Start: 07-08-2022 Telephone encounter Christin [facility] [place] Start: 07-04-2022 End: 07-05-2022 ambulatory [facility] Facility:[facility] Start: 06-30-2022 End: 06-30-2022 ambulatory Christin Grullon Other [employer] Other Start: 06-30-2022 Telephone encounter Christin [facility] [place] Start: 06-25-2022 End: 06-26-2022 ambulatory [facility] Facility:[facility] Start: 06-24-2022 End: 06-24-2022 ambulatory Christin Grullon Other [employer] Other Start: 06-24-2022 Telephone encounter Christin [facility] [place] Start: 06-19-2022 End: 06-19-2022 Patient encounter procedure DO Christin Grullon Work Phone: [facility] Work Phone: Start: 06-03-2022 End: 06-03-2022 ambulatory Christin Grullon Other [employer] Other Start: 06-03-2022 Telephone encounter Christin [facility]yes [facility] [place] Start: 05-28-2022 End: 05-29-2022 ambulatory [facility] Facility:[facility] Start: 05-20-2022 End: 05-20-2022 ambulatory Christin Grullon Other [employer] Other Start: 05-20-2022 Telephone encounter Christin [facility] [place] Start: 05-19-2022 Office outpatient vi sit 15 minutes Christin AGU[facility]AR [facility] [place] Start: 05-19-2022 End: 05-19-2022 ambulatory DO Christin Grullon Work Phone: [email or web address] Other Start: 05-19-2022 End: 05-19-2022 Patient encounter procedure DO Christin Grullon Work Phone: [facility] Start: 04-30-2022 End: 05-01-2022 ambulatory CINDY RODRIGEZ Facility:[facility] Start: 04-14-2022 ambulatory CINDY RODRIGEZ Faci lity:[facility] Start: 04-09-2022 End: 04-10-2022 ambulatory CINDY RODRIGEZ Facility:[facility] Start: 03-27-2022 End: 03-28-2022 ambulatory CORWIN DAYAN Facility:[facility] Start: 03-06-2022 End: 03-07-2022 ambulatory CHRISTIN GRULLON Facility:[facility] Start: 02-28-2022 End: 02-28-2022 ambulatory CHRISTIN GRULLON Facility:[facility] Start: 02-20-2022 End: 02-21-2022 ambulatory CORWIN DAYAN Facility:[facility] Start: 02-13-2022 End: 02-13-2022 ambulatory CINDY RODRIGEZ Facility:[facility] Start: 02-10-2022 End: 02-11-2022 ambulatory CINDY RODRIGEZ Facility:[facility] Start: 02-04-2022 Encounter for preprocedural cardiovascular examination CINDY RODRIGEZ [facility] Start: 02-04-2022 Encounter for preprocedural laboratory examination CINDY RODRIGEZ [facility] Start: 02-03-2022 End: 02-04-2022 ambulatory CINDY RODRIGEZ Facility:[facility] Start: 02-03-2022 End: 02-04-2022 Encounter for preprocedural cardiovascular examination CINDY RODRIGEZ Facility:[facility] Start: 01-08-2022 End: 01-09-2022 ambulatory CORWIN DAYAN Facility:[facility] Start: 12-27-2021 End: 12-28-2021 ambulatory CORWIN DAYAN Facility:[facility] Start: 12-04-2021 End: 12-05-2021 ambulatory CINDY RODRIGEZ Facility:[facility] Start: 11-08-2021 End: 11-08-2021 ambulatory Christin Grullon Other [employer] Other Start: 11-08-2021 Telephone encounter Christin Mitchel TAN [facility] [place] Start: 05-01-2021 End: 05-01-2021 ambulatory Christin Grullon Other [employer] Other Start: 05-01-2021 Office outpatient vi sit 15 minutes Christin Grullon [facility] [place] Start: 04-18-2021 Telephone encounter Christin TAN [facility] [place] Start: 03-20-2021 Office outpatient vi sit 15 minutes Christin Grullon [facility] [place] Start: 08-28-2018 End: 09-20-2018 Patient encounter procedure [facility]RISTINE [facility] Start: 08-21-2018 End: 08-27-2018 Evaluation and management of inpatient [facility] Procedures Date Procedure Procedure Detail Performing Clinician Start: 06-23-2023 Plain X-ray of left shoulder DO Christin Grullon [facility] Phone: Start: 06-10-2023 OR Shoulder Arthro RCR/Biceps Tendon (Left) DO Christin Grullon [facility] Phone: Start: 05-05-2023 Local anesthetic lum bar facet joint nerve block DO Christin Grullon [facility] Phone: Start: 04-02-2023 MRI of left shoulder DO Christin Grullon [facility] Phone: Start: 02-24-2023 Radiography of thora cic spine DO Christin Grullon [facility] Phone: Start: 09-24-2022 MRI of cervical spin e without contrast DO Christin Grullon [facility] Phone: Start: 09-24-2022 XR pre/post mri xray DO Christin Grullon [facility] Phone: Start: 07-30-2022 MRI of head DO Christin Grullon [facility] Phone: Start: 07-14-2022 Mammography of right breast DO Christin Grullon Work Phone: Start: 07-14-2022 Core needle biopsy o f breast using ultrasound guidance DO Christin Grullon Work Phone: Start: 07-08-2022 Mammography of right breast DO Christin Grullon Work Phone: Start: 07-08-2022 Ultrasonography of r ight breast DO Christin Grullon Work Phone: Start: 06-19-2022 Dual energy X-ray absorptiometry DO Christin Grullon Work Phone: Start: 06-19-2022 Screening mammograph y of bilateral breasts DO Christin Grullon Work Phone: Start: 05-19-2022 Plain X-ray of left shoulder DO Christin Grullon Work Phone: Start: 05-19-2022 X-ray of both knees DO Christin Grullon Work Phone: Plan of Treatment Date Care Activity Detail Author Start: 06-10-2023 [facility] Start: 06-10-2023 [facility] Start: 05-05-2023 [facility] Adenosine monophosphate.cyclic [Moles/volume] in Serum or Plasma [facility] Work Phone: Patient Education Felter Diagnostic Block [facility] Work Phone: Patient referral [facility] Work Phone: Rheumatoid factor [Units/volume] in Serum or Plasma [facility] Work Phone: Immunizations Immunization Date Immunization Notes Care Provider Fa cilijim 06-26-2023 influenza, injectabl e, quadrivalent, preservative free Isiah Purcell Other [employer] Other 05-22-2021 COVID-19 mRNA, Comirnaty (Pfizer) DO Christin Grullon Work Phone: [facility] 03-20-2021 Kenalog -40 mg Christin Alcocerley Other [employer] Other 10-18-2020 COVID-19 Vaccine Pfi zer - Documentation Purposes Only Christin Grullon Other [facility] 09-27-2020 COVID-19 Vaccine Pfi zer - Documentation Purposes Only Christin Grullon Other [facility] 08-24-2018 pneumococcal polysaccharide vaccine, 23 valent Christin Grullon Other [facility] [employer] Other Payers Date Payer Category Payer Self-pay [id number] 1970 Unknown [id number] 2.16.84 0.1.362844.3.579.2.593 1970 Unknown [id number] 2.16.84 0.1.740834.3.579.2.593 1969 Unknown [id number] 2.16.84 0.1.353609.3.579.2.593 1969 Unknown [id number] 2.16.84 0.1.943920.3.579.2.593 1969 Unknown [id number] 2.16.84 0.1.154237.3.579.2.593 1969 Unknown [id number] 2.16.84 0.1.819822.3.579.2.593 1969 Unknown [id number] 2.16.84 0.1.098359.3.579.2.593 1969 Unknown [id number] 2.16.84 0.1.729794.3.579.2.593 1969 Unknown [id number] 2.16.84 0.1.799098.3.579.2.593 1969 Unknown [id number] 2.16.84 0.1.145477.3.579.2.593 1969 Unknown [id number] 2.16.84 0.1.752980.3.579.2.593 1969 Unknown [id number] 2.16.84 0.1.843527.3.579.2.593 1969 Unknown [id number] 2.16.84 0.1.161757.3.579.2.593 1969 Unknown [id number] 2.16.84 0.1.733699.3.579.2.593 1969 Unknown [id number] 2.16.84 0.1.743058.3.579.2.593 1969 Unknown [id number] 2.16.84 0.1.478181.3.579.2.593 1969 Unknown [id number] 2.16.84 0.1.989393.3.579.2.593 1969 Unknown [id number] 2.16.84 0.1.775712.3.579.2.593 1969 Unknown [id number] 2.16.84 0.1.706375.3.579.2.593 1959 Unknown [id number] . 16.840.1.190103.19 Unknown [id number] Unknown [place] BC/BS [id number] Unknown HCAP/HFA/FAP Active [id number] Unknown [id number] 2.16.8 40.1.989779.3.579.2.531 Unknown [id number] 2.16.8 40.1.488180.3.579.2.531 Unknown [id number] 2.16.8 40.1.940806.3.579.2.531 Unknown [id number] 2.16.8 40.1.567307.3.579.2.531 Unknown [id number] 2.16.8 40.1.402216.3.579.2.531 Unknown [id number] 2.16.8 40.1.629457.3.579.2.531 Unknown [id number] 2.16.8 40.1.409806.3.579.2.531 Unknown [id number] 2.16.8 40.1.726455.3.579.2.531 Unknown [id number] 2.16.8 40.1.341824.3.579.2.531 Unknown [id number] 2.16.8 40.1.057469.3.579.2.531 Unknown [id number] 2.16.8 40.1.207493.3.579.2.531 Social History Date Type Detail Facility Tobacco smoking status [facility] Unknown if ever smoked [facility] Start: 1970 Sex Assigned At Female F [facility] Sex Assigned At Sex Assigned At Bir th [facility] [employer] Other Start: 2021 End: 07-14-2022 Tobacco smoking status [facility] Ex-smoker (finding) [facility] Start: 06-01-2023 End: 06-10-2023 Tobacco smoking status [facility] Smoker (finding) [facility] Medical Equipment Procedure Code Equipment Code Equipment Origin al Text Equipment Identifier Dates Tendon/ligament bone anchor, bioabsorbable [id number] [facility] Start: 06-10-2023 Goals Date Patient Goal Desired Activity /State Clinical Notes 03-20-2021 to 07-20-2023 Note Date & Type Note Facility 07-20-2023 Evaluation note Encounter Date Diagnosis Assessment Notes Jun, Status post arthroscopy of left shoulder (ICD-10 - Z98.890) Patient is doing well after surgery. Incision continues to heal well. Patient will start with therapy as instructed following the given biceps tenodesis postoperative protocol. Formal therapy order was given to patient. Advised she can continue to progress weight bearing as tolerated. Advised she may have soreness with therapy and that is normal. She will follow up in 6 weeks for reevaluation. Jun, Arthritis of left acromioclavicular joint (ICD-10 - M19.012) Jun, Subacromial impingement of left shoulder (ICD-10 - M75.42) Jun, Adhesive capsulitis of left shoulder (ICD-10 - M75.02) [employer] Other 01-03-2024 Evaluation note* Encounter Date Diagnosis Assessment Notes Treatment Notes Treatment Clinical Notes Jun, Other specified postprocedural states (ICD-10 - Z98.890) [employer] Other 01-02-2024 Evaluation note* Encounter Date Diagnosis Assessment Notes Treatment Notes Treatment Clinical Notes Jun, Status post arthrosc opy of left shoulder (ICD-10 - Z98.890) Patient is doing well after surgery. Sutures were removed with no complications. Patient will continue with therapy as instructed following the given postoperative protocol. They will continue using the sling. Instructed she come out of the sling the work on elbow range of motion and pendulum exercises. Patient will be non-weightbearing using the sling. She can discontinue the pillow under her arm. Patient will follow-up in 4 weeks. Jun, Arthritis of left acromioclavicular joint (ICD-10 - M19.012) Jun, Subacromial impingem ent of left shoulder (ICD-10 - M75.42) Jun, Adhesive capsulitis of left shoulder (ICD-10 - M75.02) [employer] Other 12-28-2023 Evaluation note* Encounter Date Diagnosis Assessment Notes Treatment Notes Treatment Clinical Notes May, Other specified postprocedural states (ICD-10 - Z98.890) [employer] Other 12-19-2023 Evaluation note* Encounter Date Diagnosis Assessment Notes Treatment Notes Treatment Clinical Notes May, Other specified postprocedural states (ICD-10 - Z98.890) [employer] Other 12-05-2023 Evaluation note* Encounter Date Diagnosis Assessment Notes Treatment Notes Treatment Clinical Notes May, Arthritis of facet joint of cervical spine (ICD-10 - M47.812) Patients primary complaint today remains cervical pain. She shows notable pain consistent with degenerative changes of the cervical spine. Based on recent positive results, as well as location of pain and exam findings, patient is a candidate for repeat bilateral cervical facet medial branch nerve blocks which we will proceed with. It was further explained should this provide significant short term relief we will proceed with a subsequent radiofrequency ablation. Risks and benefits of procedure explained to patient; patient verbalizes understanding. Anatomy of spine discussed in detail with patient in regards to patients condition. May, Cervical pain (ICD-10 - M54.2) May, Chronic pain (ICD-10 - G89.29) May, Other Above note writ ten by Peter Mayo MA, [employer]. Edited and approved by Dr. Christin Mead MD. [employer] Other 12-04-2023 Evaluation note* Encounter Date Diagnosis Assessment Notes Treatment Notes Treatment Clinical Notes May, Tendinopathy of left rotator cuff (ICD-10 - M67.912) May, Nontraumatic incomplete tear of left rotator cuff (ICD-10 - M75.112) We discussed conservative management vs surgical intervention. The patient wishes to proceed with surgery in the form of diagnostic left shoulder scope with rotator cuff repair, bicep tenodesis, distal clavicle recetion and subacromial decompression. We discussed the risks, benefits, and alternatives to surgery in general, including the potential outcomes with foregoing treatment altogether. The risks include, but are not limited to, the risk of anesthesia up to and including , infection, bleeding, tendon damage, nerve damage, vascular damage, stiffness, weakness, loss of range of motion, arthrofibrosis, failure to alleviate symptoms, worsening of symptoms, continued pain, continued mechanical symptoms, arthritic pain, post traumatic arthritis, wound healing problems, formation of cutaneous scars secondary to surgical incisions, deep venous thrombosis, pulmonary embolism, reflex sympathetic dystrophy, unforeseen complications and the need for further surgery. The specific risks inherent to shoulder surgery were discussed further. These include, but are not limited to: failure of any repair (labrum, biceps, rotator cuff), symptomatic hardware, chondrolysis, fracture, instability (glenohumeral or acromioclavicular), unforeseen complications and the need for further or revision surgery. Management of any biceps pathology was also addressed. If the long head of the biceps is substantially torn, tenotomy versus tenodesis may be performed. Specific risks of biceps cosmetic deformity and/or spasm were discussed. In the event of an irreparable rotator cuff tear, partial repair/reconstructi on with dermal allograft augmentation will be considered. We discussed in detail the rehabilitation associated with this procedure, in terms of frequency and duration. We discussed the use of the sling postoperatively, and the fact that driving a motor vehicle is not advisable while in the sling. The importance of proper rehabilitation in the overall outcome of the surgery was emphasized. The amount of time needed off from activities (work, school, sports, exercise, and leisure activity) was discussed. The patient understands that in no way does surgical intervention guarantee return to activities (athletic, work, leisure, etc.) at the pre-injury level. Guarantees were neither stated nor implied. The patient understands and has appropriate expectations. We did discuss the risks and benefits of forgoing treatment altogether, and living with symptoms as they are. The patient understood and wishes to proceed. Informed consent was obtained, questions were entertained and answered to the best of my ability. May, Subacromial impingement of left shoulder (ICD-10 - M75.42) May, Pain in left shoulde r (ICD-10 -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
== END 2023-09-09 13:06 | disposition home or self-care (01) ==
LOC: EC 13:05
PROVIDERS: PCP Family Medicine; Visit Provider Podiatrist Foot & Ankle Surgery
DX: M79.672 Pain in left foot (principal); Z98.890 Other specified postprocedural states
CPT/HCPCS: 73630

== ENCOUNTER 2023-09-15 14:18 | Outpatient (OUT) | payer OTHER, SELFPAY ==
--- NOTE | 2023-09-15 14:23 | CT_ITS ---
The [address] [address] Patient Name: JOSH SOLIS MRN: [id number] date: 1970 Sex: F Assigned Patient Location: CT Current Patient Location: CT Accession/Order Number: [id number] Exam Date: 09/15/2023 14:30 Report Date: 09/15/2023 15:31 At the request of: CINDY RODRIGEZ Procedure: CT ankle LT wo con EXAMINATION: CT ankle LT wo con HISTORY: Midfoot Fusion Left Foot COMPARISON: 05/19/2023 TECHNIQUE: Multi-planar CT images were created without IV contrast. Dose reduction techniques were achieved by using automated exposure control and/or adjustment of mA and/or kV according to patient size and/or use of iterative reconstruction technique. FINDINGS: BONES: No acute fracture or dislocation. Stable fusion of the first second and third tarsometatarsal joints. There is increased bony bridging across the second and third tarsometatarsal joint with incomplete bony bridging across the first tarsometatarsal joint. Extension of the screw across the third tarsometatarsal joint the amount of the proximal margin of the third metatarsal bone. Lucency in the distal tibia consistent with bone graft harvesting SOFT TISSUES: Negative. No visible soft tissue swelling. EFFUSION: None visible. OTHER: Negative. CT/CT ankle LT wo con IMPRESSION: Stable exam with first second and third metatarsal phalangeal joint fusion. No mechanical failure Electronically authenticated by: STERLING THOMAS Date: 09/15/2023 15:31
== END 2023-09-15 14:19 | disposition home or self-care (01) ==
LOC: CT 14:18
PROVIDERS: PCP Family Medicine; Visit Provider Podiatrist Foot & Ankle Surgery
DX: Z98.1 Arthrodesis status (principal)
CPT/HCPCS: 73700

== ENCOUNTER 2023-11-11 09:46 | Outpatient (OUT) | payer OTHER, SELFPAY ==
--- NOTE | 2023-11-11 | XR_ITS ---
[address] [address] Patient Name: JOSH SOLIS MRN: [id number] date: 1970 Sex: F Assigned Patient Location: Current Patient Location: Accession/Order Number: [id number] Exam Date: 11/11/2023 09:54 Report Date: 11/11/2023 13:41 At the request of: CINDY RODRIGEZ Procedure: XR foot LT min 3V PROCEDURE: XR foot LT min 3V COMPARISON: 09/09/2023 HISTORY: LEFT FOOT PAIN FINDINGS: BONES:Stable internal fixation of the first second and third tarsometatarsal joints. No acute fracture, dislocation or mechanical failure. SOFT TISSUES:Negative. No visible soft tissue swelling. EFFUSION:None visible. OTHER: Negative. XR/XR foot LT min 3V IMPRESSION: Stable internal fixation of the first through third tarsal metatarsal joints Electronically authenticated by: STERLING THOMAS Date: 11/11/2023 13:41
--- OUTSIDE RECORDS SUMMARY | 2023-11-11 09:59 | XMS_ITS | CCD ---
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 Signed By:CHRISTIN BROWN MD Transcribed By: KARLEE Signed By Christin Brown MD 2138 Normal [facility] Eosinophils Auto (Bld) [#/Vo l]Ordered By: Isiah Purcell on 06-01-2023 Eosinophils (Bld) [#/Vol] 0.1 10*3/uL 0.0-0.45 [facility] Eosinophils/100 WBC Auto (Bl d)Ordered By: Isiah Purcell on 06-01-2023 Eosinophils/100 WBC (Bld) 1.8 % . [facility] Erythrocyte distribution wid th Auto (RBC) [Ratio]Ordered By: Isiah Purcell on 06-01-2023 Erythrocyte distribution width (RBC) [Ratio] 13.4 % 11.9-15.3 [facility] Globulin Calc (S) [Mass/Vol] Ordered By: Isiah Purcell on 06-01-2023 Globulin (S) [Mass/Vol] 2.4 g/dL [facility] Glucose [Mass/volume] in Ser um or PlasmaOrdered By: Isiah Purcell on 06-01-2023 Glucose [Mass/Vol] 77 mg/dL 70-100 [facility] Hematocrit Auto (Bld) [Volum e fraction]Ordered By: Isiah Purcell on 06-01-2023 Hematocrit (Bld) [Volume fraction] 40.1 % 34.0-46.4 [facility] Hemoglobin [Mass/volume] in BloodOrdered By: Isiah Purcell on 06-01-2023 Hemoglobin (Bld) [Mass/Vol] 13.7 g/dL 11.8-15.4 [facility] Leukocytes [#/volume] correc lizbet for nucleated erythrocytes in Blood by Automated counOrdered By: Isiah Purcell on 06-01-2023 WBC corrected for nucl RBC Auto (Bld) [#/Vol] 7.3 10*3/uL 3.8-11.6 [facility] Lymphocytes Auto (Bld) [#/Vo l]Ordered By: Isiah Purcell on 06-01-2023 Lymphocytes (Bld) [#/Vol] 1.5 10*3/uL 1.00-4.8 [facility] Lymphocytes/100 WBC Auto (Bl d)Ordered By: Isiah Purcell on 06-01-2023 Lymphocytes/100 WBC (Bld) 20.3 % . [facility] MCH Auto (RBC) [Entitic mass ]Ordered By: Isiah Purcell on 06-01-2023 MCH (RBC) [Entitic mass] 30.3 pg 24.7-34.3 [facility] MCHC Auto (RBC) [Mass/Vol]Or dered By: Isiah Purcell on 06-01-2023 MCHC (RBC) [Mass/Vol] 34.1 g/dL 32.0-35.0 [facility] MCV Auto (RBC) [Entitic vol] Ordered By: Isiah Purcell on 06-01-2023 MCV (RBC) [Entitic vol] 88.8 fL 80-100 [facility] Monocytes Auto (Bld) [#/Vol] Ordered By: Isiah Purcell on 06-01-2023 Monocytes (Bld) [#/Vol] 0.6 10*3/uL 0.0-0.8 [facility] Monocytes/100 WBC Auto (Bld) Ordered By: Isiah Purcell on 06-01-2023 Monocytes/100 WBC (Bld) 8.7 % . [facility] Neutrophils Auto (Bld) [#/Vo l]Ordered By: Isiah Purcell on 06-01-2023 Neutrophils (Bld) [#/Vol] 5.0 10*3/uL 1.8-7.7 [facility] Neutrophils/100 WBC Auto (Bl d)Ordered By: Isiah Purcell on 06-01-2023 Neutrophils/100 WBC (Bld) 67.8 % . [facility] No Panel InformationOrdered By: Isiah Purcell on 06-01-2023 Estimated GFR (CKD-EPI) > 60.0 mL/Min [facility] Creatinine Clearance (Chem N/A [facility] Nucleated erythrocytes [Pres ence] in Blood by Automated countOrdered By: Isiah Purcell on 06-01-2023 Nucleated RBC Auto Ql (Bld) 0.0 /100{WBC} 0-0.5 [facility] Platelet mean volume Auto (B ld) [Entitic vol]Ordered By: Isiah Purcell on 06-01-2023 Platelet mean volume (Bld) [Entitic vol] 8.2 fL 6.3-10.7 [facility] Platelets Auto (Bld) [#/Vol] Ordered By: Isiah Purcell on 06-01-2023 Platelets (Bld) [#/Vol] 377 10*3/uL 150-450 [facility] Potassium [Moles/volume] in Serum or PlasmaOrdered By: Isiah Purcell on 06-01-2023 Potassium [Moles/Vol] 4.2 mmol/L 3.5-5.1 [facility] Protein [Mass/volume] in Ser um or PlasmaOrdered By: Isiah Purcell on 06-01-2023 Protein [Mass/Vol] 6.6 g/dL 6.4-8.9 [facility] RBC Auto (Bld) [#/Vol]Ordere d By: Isiah Purcell on 06-01-2023 RBC (Bld) [#/Vol] 4.52 10*6/uL 3.60-5.00 [facility] Serum or plasma albumin/glob ulin mass ratioOrdered By: Isiah Purcell on 06-01-2023 Albumin/Globulin [Mass ratio] 1.8 {ratio} [facility] Serum or plasma anion gap de terminationOrdered By: Isiah Purcell on 06-01-2023 Anion gap [Moles/Vol] 10.2 mmol/L 6.0-15.0 [facility] Sodium [Moles/volume] in Ser um or PlasmaOrdered By: Isiah Purcell on 06-01-2023 Sodium [Moles/Vol] 140 mmol/L 136-145 [facility] Urea nitrogen [Mass/volume] in Serum or PlasmaOrdered By: Isiah Purcell on 06-01-2023 Urea nitrogen [Mass/Vol] 7 mg/dL 7 [facility] WBC Auto (Bld) [#/Vol]Ordere d By: Isiah Purcell on 06-01-2023 WBC (Bld) [#/Vol] 7.3 10*3/uL 3.8-11.6 [facility] MR shoulder LT wo conon 03-22 MR shoulder LT wo con [facility] [address] MRI Report Signed Patient: Karen Solis MR#: [id number] 01 : 1970 Acct:[id number] Age/Sex: 52 / F ADM Date: 04/02/23 Loc: [place] Room: Type: [facility] Attending Dr: Pratik Cross DO Copies [...] Rian Royal M.D.04/02/2023 4:38 PM Dictation Location: [place] [address] Transcribed By: [facility] 04/02/23 1638 Dictated By: Rian Royal II, MD 04/02/23 1631 Signed By: 04/02/23 1638 Normal [facility] XR thoracic spine 3V*on XR thoracic spine 3V* [facility] [place] [address] [place] [address] XRay Report Signed Patient: Karen Solis MR#: [id number] 01 : 1970 Acct:[id number] Age/Sex: 52 / F ADM Date: 02/24/23 Loc: [facility] Room: Type: [facility] Attending Dr: Gwendolyn MULLER Copies to: RENZO [...] Perla Mcnally M.D.02/24/2023 4:32 PM Dictation Location: [place] [address] Transcribed By: [facility] 02/24/23 1632 Dictated By: Perla Mcnally MD 02/24/23 1630 Signed By: 02/24/23 1632 Normal [facility] XR pre/post mri xrayon 09-24 XR pre/post mri xray [facility] [place] [address] [place] [address] MRI Report Signed Patient: Karen Solis MR#: [id number] 01 : 1970 Acct:[id number] Age/Sex: 52 / F ADM Date: 09/24/22 Loc: [place] Room: Type: [facility] Attending Dr: Brenda VILLEDA Copies to: RONAL Collazo Ordering Provider: RONAL Collazo Date of Service: 09/24/22 MR/MR cervical spine wo con: M54.12 ([id number]) XR/XR pre/post mri xray: C-SPINE MRI cervical [...] Umesh Perez M.D.09/24/2022 3:22 PM Dictation Location: [place] [address] Transcribed By: [facility] 09/24/22 1522 Dictated By: Umesh Perez DO 09/24/22 1517 Signed By: 09/24/22 1522 [facility] MR head/brain wo conon 07-30 MR head/brain wo con [facility] [address] MRI Report Signed Patient: Karen Solis MR#: [id number] 01 : 1970 Acct:[id number] Age/Sex: 52 / F ADM Date: 07/30/22 Loc: [place] Room: Type: [facility] Attending Dr: Christin Grullon DO Copies [...] Perla Mcnally M.D.07/30/2022 4:55 PM Dictation Location: [place] [address] Transcribed By: [facility] 07/30/22 1655 Dictated By: Perla Mcnally MD 07/30/22 1647 Signed By: 07/30/22 1655 [facility] MR head/brain wo con [facility] [employer] Other MR head/brain wo con [facility] [employer] Other MR head/brain wo con [address]111 [facility] [employer] Other MR head/[place] [address] [employer] Other MR head/brain wo con MRI Report [facility] [employer] Other MR head/brain wo con Signed [employer] Other MR head/brain wo con Patient: Karen Solis MR#: [id number] [employer] Other MR head/brain wo con 01 [employer] Other MR head/brain wo con : 1970 Acct:[id number] [employer] Other MR head/brain wo con Age/Sex: 52 / F ADM Date: 07/30/22 [employer] Other MR head/brain wo con Loc: [place] Room: Type: [facility] [employer] Other MR head/brain wo con Attending Dr: Christin Grullon DO [employer] Other MR head/brain wo con Copies to: Christin Grullon DO [employer] Other MR head/brain wo con Ordering Provider: Christin Grullon DO [employer] Other MR head/brain wo con Date of Service: 07/30/22 [employer] Other MR head/brain wo con MR/MR head/brain wo con: Generalized headaches;Intention tremor;Pain in [employer] Other MR head/brain wo con unspecified l N [employer] Other MR head/brain wo con EXAMINATION: MRI OF THE BRAIN WITHOUT CONTRAST [employer] Other MR head/brain wo con CLINICAL HISTORY: Headache and intention tremor for the past few months, mostly on the left. [employer] Other MR head/brain wo con COMPARISON: CT 2021 [employer] Other MR head/brain wo con TECHNIQUE: Multiecho, multiplanar imaging of the brain was performed without enhancement. [employer] Other MR head/brain wo con The ventricles are normal in size and position. A small nonspecific focus of increased T2 and FLAIR [employer] Other MR head/brain wo con signal is present within the subcortical white matter of the right parietal lobe (axial image 15). [employer] Other MR head/brain wo con There is also very subtle increased signal within the suzie. This is nonspecific and could be [employer] Other MR head/brain wo con minimal microvascular disease. Demyelination is thought less likely given the distribution. A [employer] Other MR head/brain wo con prominent perivascular space is noted at the inferior basal ganglia region on the left. There are [employer] Other MR head/brain wo con no additional areas of abnormal signal intensity within the supra- or infratentorial brain. No [employer] Other MR head/brain wo con restricted diffusion is identified to suggest a recent ischemic event. There are no extra-axial [employer] Other MR head/brain wo con collections or mass effect. The imaged paranasal sinuses and mastoid air cells are clear. [employer] Other MR head/brain wo con MR/MR head/brain wo con [employer] Other MR head/brain wo con IMPRESSION: Nor [employer] Other MR head/brain wo con MINIMAL NONSPECIFIC WHITE MATTER CHANGE, DESCRIBED. [employer] Other MR head/brain wo con NO ACUTE INTRACRANIAL FINDINGS [employer] Other MR head/brain wo con Impression dictated by: Perla Mcnally M.D.07/30/2022 4:55 PM [employer] Other MR head/brain wo con Dictation Location: [facility]--10 [employer] Other MR head/brain wo con Transcribed By: ANJEL 07/30/22 3194 [employer] Other MR head/brain wo con Dictated By: Perla Mcnally MD 07/30/22 1894 [employer] Other MR head/brain wo con Signed By: Thierno [employer] Other MR head/brain wo con 07/30/22 1655 N [facility] [employer] Other POINT OF CARE GLUCOSEon 06-24 Glucose [Mass/Vol] 94 mg/dL Normal 74-106 [facility] Comment on above: Performed By: #### P OCGLUC #### [facility] [address] [place], [place] [address] Dr. Alex Guy Glucose [Mass/Vol] 92 mg/dL Normal 74-106 [facility] Comment on above: Performed By: #### P OCGLUC ####[facility] [address] [place], [place] [address]LkDr. Alex Guy XR FOOT LT 2Von 07-21-2022 [...] Date: 2022-07-21 09:40 Normal [facility]-23 SARS-CoV-2 (COVID-19) RNA CATALINA+probe Ql (Unsp spec) Not detected Normal NOT DETECTED [facility] Comment on above: Result Comment: This test is not yet approved or cleared by the [place] FDA. When there are no FDA-approved or cleared tests available, and other criteria are met, FDA can make tests available under an emergency access mechanism called an Emergency Use Authorization (EUA). The EUA for this test is supported by the [place] of Health and Human Service's (HHS's) declaration [...] consistent with SARS-CoV-2. Performed By: #### C [facility] #### [facility] [address] [place] [address] Dr. Alex Sandhu 07-14-2022 L Specimen: [id number] Received: 07/14/22 Status: GENNY Ramirezronda Num: [id number] Spec Type: Surgical Subm Dr: Rian Royal II, MD Tissues: A BREAST CORE NO CALCS (RT BREAST TISSUE) Procedures: HE/4, Gross/Micro L4, CALPONIN Age/ Patient Sex Location Account Attending Physician Karen Solis 52/F AC [id number] Jose Vincent DO SPEC NUM: [id number] RECD: 07/14/22 STATUS: GENNY ELLIS NUM: [id number] LESTER: 07/14/[address] [facility] [address]: Rian Royal II, MD ENTERED: 07/14/[address] [facility] [address]: Jose Vincent DO SPEC TYPE: Surgical [...] Formalin Fixation Time: ? Cannot calculate Specimen: [id number] Received: 07/14/22 Status: FRANCISCOYoly Ellis Num: [id number] Spec Type: Surgical Subm Dr: Rian Royal II, MD Tissues: A BREAST CORE NO CALCS (RT BREAST TISSUE) Procedures: SHANE, Gross/Micro L4, CALPONIN Patient: Karen Solis [id number] (Continued) Specimen: Received: 07/14/22 (Continued) Signed (signatur e on file) Tenisha Banks MD 07/15/22 1623 Specimen: [id number] Received: 07/14/22 Status: FRANCISCOYoly Ramirezq Num: [id number] Spec Type: Surgical Subm Dr: Rian Royal II, MD Tissues: A BREAST CORE NO CALCS (RT BREAST TISSUE) Procedures: SHANE, Claudio/Micro L4, CALPONIN Patient: Karen Solis [id number] (Continued) Specimen: [id number] Received: 07/14/22 (Continued) Microscopic Description Two glass slides with H E stained material have been examined. The microscopic findings support the above pathologic diagnosis. CPT Codes 40064 Specimen: [id number] Received: 07/14/22 Status: GENNY Ellis Num: [id number] Spec Type: Surgical Subm Dr: Rian Royal, MD SUDHA Tissues: A BREAST CORE NO CALCS (RT BREAST TISSUE) Procedures: HE/4, Gross/Micro L4, CALPONIN Patient: Karen Solis [id number] (Continued) Signed (signatur e on file) Tenisha Banks MD 07/15/[address] [place] [address] US breast ndl core biopsy RT on 07-14-2022 US breast ndl core biopsy RT [facility] [address] Mammography Report Signed with Addenda Patient: Karen Solis MR#: [id number] 01 : 1970 Acct:[id number] Age/Sex: 52 / F ADM Date: 07/14/22 Loc: [facility] Room: Type: [facility] Attending Dr: Jose Vincent DO Copies to: DO Christin Martini DO Ordering Provider: Jose Vincent DO Date of Service: 07/14/22 US/US breast ndl core biopsy RT: BREAST LESION ([id number]) MM/MM post biopsy RT w/CAD: POST U/S BX WITH CLIP ADDENDUM 1 Final pathology: Benign fibrofatty breast tissue Negative for atypia or malignancy. Recommendation: Follow-up with diagnostic right breast mammogram in 6 months is recommended. Impression dictated by: Rian Royal M.D.07/16/2022 7:40 AM Dictation Location: S01 Addendum Dictated By: Rian Royal II, MD [...] of the right breast was performed by chief medical technologist as well as myself. At [...] o'clock position were performed using a 12-gauge [employer] vacuum-assisted core biopsy needle under ultrasound guidance. [...] Rian Royal M.D.07/14/2022 11:58 AM Dictation Location: [facility]01 Transcribed By: ANJEL 07/14/22 1158 Dictated By: Rian Royal II, MD 07/14/22 1154 Signed By: 07/14/22 115 [facility] PROF CHEM 8 (BAS METB)on Anion gap [Moles/Vol] 9.3 mmol/L Normal [facility] Comment on above: Performed By: #### B MP ####[facility] [address] [place], [place] [address]Dr. Alizelarry Guy Calcium [Mass/Vol] 9.5 mg/dL Normal 8.5-10.1 [facility] Comment on above: Performed By: #### B MP ####[facility] [address] [place], [place] [address]Dr. Alex Guy Chloride [Moles/Vol] 104 mmol/L Normal 98-107 [facility] Comment on above: Performed By: #### B MP ####[facility] [address] [place], [place] [address]Dr. Alex Guy CO2 [Moles/Vol] 32.4 mmol/L Critically high 21.0-32.0 [facility] Comment on above: Performed By: #### B MP ####[facility] [address] [place], [place] [address]Dr. Alex Guy Creatinine [Mass/Vol] 0.82 mg/dL Normal 0.55-1.02 [facility] Comment on above: Performed By: #### B MP ####[facility] [address] [place], [place] [address]Dr. Alex Guy EGFR-AF MALIAN >60 Normal >=60 [facility] Comment on above: Performed By: #### B MP ####[facility] [address] [place], [place] [address]Dr. Alex Guy EGFR-NON AF MALIAN >60 Normal >=60 [facility] Comment on above: Performed By: #### B MP ####[facility] [address] [place], [place] [address]Dr. Alex Guy Glucose [Mass/Vol] 89 mg/dL Normal 74-106 [facility] Comment on above: Performed By: #### B MP ####[facility] [address] [place], [place] [address]Dr. Alex Guy Potassium [Moles/Vol] 4.7 mmol/L Normal 3.5-5.1 [facility] Comment on above: Performed By: #### B MP ####[facility] [address] [place] [address]Dr. Alex Guy Sodium [Moles/Vol] 141 mmol/L Normal 136-145 [facility] Comment on above: Performed By: #### B MP ####[facility] [address] [place] [address]Dr. Alex Guy Urea nitrogen [Mass/Vol] 7.0 mg/dL Normal 7.0-18.0 [facility] Comment on above: Performed By: #### B MP ####[facility] [address] [place] [address]Dr. Alex Guy Urea nitrogen/Creatinine [Mass ratio] 8.5 mg/mg Normal [facility] Comment on above: Performed By: #### B MP ####[facility] [address] [place] [address]Dr. Alex Guy CT FOOT LT WO CONon 07-08-[address] FOOT LT WO CON EXAMINATION: CT [...] by: STERLING THOMAS Date: 2022-07-08 07:21 Normal [facility] US breast RT limitedon 07-08 breast RT limited [facility] [address] Mammography Report Signed Patient: Karen Solis MR#: [id number] 01 : 1970 Acct:[id number] Age/Sex: 52 / F ADM Date: 07/08/22 Loc: [place] Room: Type: [facility] Attending Dr: Christin Grullon DO Copies to: Christin Grullon DO Ordering Provider: Christin Grullon DO Date of Service: 07/08/22 MM/MM diagnostic mammo RT w/CAD: Abnormal mammogram of right breast ([id number]) US/US breast RT limited: Abnormal mammogram of [...] Perla Mcnally M.D.07/08/2022 4:04 PM Dictation Location: [facility] Transcribed By: [facility] 07/08/22 1604 Dictated By: Perla Mcnally MD 07/08/22 1442 Signed By: 07/08/22 1604 Normal [facility] US breast RT limited [facility] [employer] Other US breast RT limited [facility] [employer] Other US breast RT limited [address] [place] [address] [employer] [facility] [employer] Other [place] [address] [employer] Other US breast RT limited Mammography Report [employer] Other US breast RT limited Signed [facility] [employer] Other US breast RT limited Patient: Karen Solis MR#: [id number] [employer] Other US breast RT limited 01 [facility] [employer] Other US breast RT limited : 1970 Acct:[id number] [employer] Other US breast RT limited Age/Sex: 52 / F ADM Date: 07/08/22 [employer] Other US breast RT limited Loc: [place] Room: Type: [facility] [employer] Other US breast RT limited Attending Dr: Christin Grullon DO [employer] Other US breast RT limited Copies to: Christin Grullon [employer] Other US breast RT limited Ordering Provider: Christin Grullon DO [employer] Other US breast RT limited Date of Service: 07/08/22 [employer] Other US breast RT limited MM/MM diagnostic mammo RT w/CAD: Abnormal mammogram of right breast [employer] Other US breast RT limited ([id number]) US/US breast RT limited: Abnormal mammogram of right breast [employer] Other US breast RT limited CLINICAL DATA: Follow-up right breast asymmetry. [employer] Other US breast RT limited RIGHT DIAGNOSTIC MAMMOGRAMS - FULL FIELD DIGITAL WITH TOMOSYNTHESIS AND CAD [employer] Other US breast RT limited Tomosynthesis spot compression true lateral, craniocaudal and mediolateral oblique views of the [employer] Other US breast RT limited right breast were obtained using low-dose digital technique. Comparison is made to the prior study [employer] Other US breast RT limited from June 19, 2022. This examination was reviewed with the aid of CAD. [employer] Other US breast RT limited There are scattered fibroglandular densities. There is still subtle, ill-defined asymmetry at the [employer] Other US breast RT limited central, slightly inferior breast on today's views. There are no other suspicious masses, typically [employer] Other US breast RT limited malignant calcifications or architectural distortion. [employer] Other US breast RT limited LIMITED RIGHT BREAST ULTRASOUND [employer] Other US breast RT limited the 4 to 5:00 position in the retroareolar region, there is a subtle hypoechoic area which has [employer] Other US breast RT limited slightly irregular margination. It measures approximately 3 x 3 x 4 mm in size. This might correlate [employer] Other US breast RT limited with the mammographic asymmetry. At the 6 to 7:00 position, 4 cm from the nipple there is a possible [employer] Other US breast RT limited subtle 3 x 2 x 4 mm hypoechoic nodular area within a band of tissue extending from middle depth [employer] Other US breast RT limited toward the chest wall. There are multiple adjacent vessels. If real, this is probably incidental. [employer] Other US breast RT limited MM/MM diagnostic mammo RT w/CAD [employer] Other US breast RT limited IMPRESSION: Nor [employer] Other US breast RT limited PERSISTENT SUBTLE ASYMMETRY WITH TINY INDETERMINANT HYPODENSITY ON ULTRASOUND. FINDINGS WERE [employer] Other US breast RT limited DISCUSSED WITH THE PATIENT WHO WOULD PREFER ULTRASOUND-GUIDED BIOPSY OVER OBSERVATION. [employer] Other US breast RT limited SECOND POTENTIAL INCIDENTAL TINY HYPODENSITY AT THE LOWER OUTER QUADRANT. ULTRASOUND FOLLOW-UP IN 6 [employer] Other US breast RT limited MONTHS IS SUGGESTED. [employer] Other US breast RT limited RESULT CODE: 4a [employer] Other US breast RT limited Suspicious Abnormality - Biopsy Low Suspicion [employer] Other US breast RT limited DENSITY CODE: 2 (approximately 25-50% glandular) [employer] Other US breast RT limited FOLLOW UP: BIO [employer] Other US breast RT limited The false-negative rate of mammography is approximately 10-percent. [employer] Other US breast RT limited Management of a palpable abnormality must be based on clinical grounds. [employer] Other US breast RT limited Patient was entered into a reminder system with a target due date for the next mammogram. [employer] Other US breast RT limited Impression dictated by: Perla Mcnally M.D.07/08/2022 4:04 PM [employer] Other US breast RT limited Dictation Location: [facility] [employer] Other US breast RT limited Transcribed By: PWS 07/08/22 1604 [employer] Other US breast RT limited Dictated By: Perla Mcnally MD 07/08/22 1442 [employer] Other US breast RT limited Signed By: [facility] Other US breast RT limited 07/08/22 1604 N [employer] Other MM screening mammo BI w/CADo n 06-30-2022 MM screening mammo BI w/CAD [facility] Main [place] [address] [place] [address] Mammography Report Signed Patient: Karen Solis MR#: [id number] 01 : 1970 Acct:[id number] Age/Sex: 52 / F ADM Date: 06/19/22 Loc: [place] Room: Type: [facility] Attending Dr: Christin Grullon DO Copies to: [...] mammogram. Impression dictated by: Jeff Hannah Jr., D.OGanga06/30/2022 10:03 AM Dictation Location: [facility] Transcribed By: [facility] 06/30/22 1003 Dictated By: Jeff Hannah Jr, DO 06/30/22 1001 Signed By: 06/30/22 1003 Normal [facility] Albumin [Mass/volume] in Ser um or PlasmaOrdered By: Christin Grullon on 05-19-2022 Albumin [Mass/Vol] 4.6 g/dL 3.2-5.5 [facility] C reactive protein [Mass/vol ume] in Serum or PlasmaOrdered By: Christin Grullon on 05-19-2022 CRP [Mass/Vol] 0.5 mg/dL 0.0-1.0 [facility] Creatinine and Glomerular fi ltration rate.predicted panel (S/P/Bld)Ordered By: Christin Grullon on 05-19-2022 Creatinine [Mass/Vol] 0.85 mg/dL 0.44-1.03 [facility] Erythrocyte distribution wid th Auto (RBC) [Ratio]Ordered By: Christin Grullon on 05-19-2022 Erythrocyte distribution width (RBC) [Ratio] 13.6 % 11.9-15.3 [facility] Erythrocyte sedimentation ra te by Photometric methodOrdered By: Christin Grullon on 05-19-2022 ESR Photometric method (Bld) [Velocity] 24 mm/hr 0-29 [facility] Estimated glomerular filtrat ion rate (GFR) non- AmericanOrdered By: Christin Grullon on 05-19-2022 GFR/1.73 sq M.predicted among non-blacks MDRD (S/P/Bld) [Vol rate/Area] > 60 mL/Min [facility] Globulin Calc (S) [Mass/Vol] Ordered By: Christin Grullon on 05-19-2022 Globulin (S) [Mass/Vol] 2.5 g/dL F [facility] Hematocrit Auto (Bld) [Volum e fraction]Ordered By: Crhistin Grullon on 05-19-2022 Hematocrit (Bld) [Volume fraction] 42.6 % 34.0-46.4 [facility] Hemoglobin [Mass/volume] in BloodOrdered By: Christin Grullon on 05-19-2022 Hemoglobin (Bld) [Mass/Vol] 14.1 g/dL 11.8-15.4 [facility] MCH Auto (RBC) [Entitic mass ]Ordered By: Christin Grullon on 05-19-2022 MCH (RBC) [Entitic mass] 29.5 pg 24.7-34.3 [facility] MCHC Auto (RBC) [Mass/Vol]Or dered By: Christin Grullon on 05-19-2022 MCHC (RBC) [Mass/Vol] 33.0 g/dL 32.0-35.0 [facility] MCV Auto (RBC) [Entitic vol] Ordered By: Christin Grullon on 05-19-2022 MCV (RBC) [Entitic vol] 89.3 fL 80-100 F [facility] No Panel InformationOrdered By: Christin Grullon on 05-19-2022 Estimated GFR () > 60 mL/Min [facility] Comment on above: GFR estimated refere nce range: According to KDOQI guidelines, <60 ml/min/1.73m2 is sufficient to diagnose a patient with chronic kidney disease. Pharmacy Creatinine Clearance (Chem N/A [facility] Platelet mean volume Auto (B ld) [Entitic vol]Ordered By: Christin Grullon on 05-19-2022 Platelet mean volume (Bld) [Entitic vol] 8.5 fL 6.3-10.7 [facility] Platelets Auto (Bld) [#/Vol] Ordered By: Christin Grullon on 05-19-2022 Platelets (Bld) [#/Vol] 388 10*3/uL 150-450 [facility] Protein [Mass/volume] in Ser um or PlasmaOrdered By: Christin Grullon on 05-19-2022 Protein [Mass/Vol] 7.1 g/dL 6.1-7.9 [facility] RBC Auto (Bld) [#/Vol]Ordere d By: Christin Grullon on 05-19-2022 RBC (Bld) [#/Vol] 4.77 10*6/uL 3.60-5.00 [facility] Serum or plasma alanine martinez otransferase measurement without P-5'-P (enzymatic activiOrdered By: Christin Grullon on 05-19-2022 ALT No additional P-5'-P [Catalytic activity/Vol] 9 U/L 10-60 [facility] Serum or plasma albumin/glob ulin mass ratioOrdered By: Christin Grullon on 05-19-2022 Albumin/Globulin [Mass ratio] 1.8 {ratio} [facility] Serum or plasma alkaline cooper sphatase measurement (enzymatic activity/volume)Ordered By: Christin Grullon on 05-19-2022 ALP [Catalytic activity/Vol] 98 U/L 32-92 [facility] Serum or plasma anion gap de terminationOrdered By: Christin Grullon on 05-19-2022 Anion gap [Moles/Vol] 13.8 mmol/L 6.0-15.0 [facility] Serum or plasma aspartate am inotransferase measurement (enzymatic activity/volume)Ordered By: Christin Grullon on 05-19-2022 AST [Catalytic activity/Vol] 16 U/L 10-42 [facility] Serum or plasma calcium abhijit urement (mass/volume)Ordered By: Christin Grullon on 05-19-2022 Calcium [Mass/Vol] 9.9 mg/dL 8.2-10.2 [facility] Serum or plasma chloride brandon surement (moles/volume)Ordered By: Christin Grullon on 05-19-2022 Chloride [Moles/Vol] 101 mmol/L 95-114 [facility] [place] [facility] Serum or plasma cyclic adeno sine monophosphate measurement (moles/volume)Ordered By: Christin Grullon on 05-19-2022 Adenosine monophosphate.cyclic [Moles/Vol] 4 units 0-19 [facility] Comment on above: Negative <20 Weak po sitive 20 - 39 Moderate positive 40 - 59 Strong positive >59Performed at: - [facility] [address] [id number] Director: Lena Evans MD, Phone: [phone] Serum or plasma glucose abhijit urement (mass/volume)Ordered By: Christin Grullon on 05-19-2022 Glucose [Mass/Vol] 81 mg/dL 70-100 [facility] Comment on above: ADA recommended refe rence rangeRandom Glucose Reference Range is dependent on time and content of last meal. Glucose of more than 200 mg/dL in a nonstressed, ambulatory subject supports the diagnosis of Diabetes Mellitus. Serum or plasma potassium me asurement (moles/volume)Ordered By: Christin Grullon on 05-19-2022 Potassium [Moles/Vol] 4.6 mmol/L 3.5-5.1 [facility] Serum or plasma rheumatoid f actor measurement (units/volume)Ordered By: Christin Grullon on 05-19-2022 Rheumatoid factor Qn [IU]/mL <14.0 [facility] [place] [facility] Comment on above: Performed at: [address] Director: Primitivo Raygoza PhD, Phone: [phone] Serum or plasma sodium measu rement (moles/volume)Ordered By: Christin Grullon on 05-19-2022 Sodium [Moles/Vol] 138 mmol/L 136-146 [facility] Serum or plasma total biliru bin measurement (mass/volume)Ordered By: Christin Grullon on 05-19-2022 Bilirubin [Mass/Vol] 0.4 mg/dL 0.3-1.2 [facility] [place] [facility] Serum or plasma total carbon dioxide measurement (moles/volume)Ordered By: Christin Grullon on 05-19-2022 CO2 [Moles/Vol] 27.8 mmol/L 22.0-30.0 [facility] Serum or plasma urea nitroge n measurement (mass/volume)Ordered By: Christin Grullon on 05-19-2022 Urea nitrogen [Mass/Vol] 8 mg/dL 9-23 [facility] WBC Auto (Bld) [#/Vol]Ordere d By: Christin Grullon on 05-19-2022 WBC (Bld) [#/Vol] 7.1 10*3/uL 3.8-11.6 [facility] XR knee standing BIon 2021 XR knee standing BI [facility] [employer] Other XR knee standing BI [facility] [employer] Other XR knee standing BI [address] [facility] [employer] Other [place]R knee [place] [address] [place] [address] [employer] Other XR knee standing BI XRay Report Nort [employer] Other XR knee standing BI Signed [employer] Other XR knee standing BI Patient: Karen Solis MR#: [id number] [place] [employer] Other XR knee standing BI 01 [employer] Other XR knee standing BI : 1970 Acct:[id number] [employer] Other XR knee standing BI Age/Sex: 52 / F ADM Date: 05/19/22 [employer] Other XR knee standing BI [facility]: Type: [facility] [employer] Other XR knee standing BI Attending Dr: Christin Grullon DO [employer] Other XR knee standing BI Copies to: Christin Grullon DO [employer] Other XR knee standing BI Ordering Provider: Christin Grullon DO [employer] Other XR knee standing BI Date of Service: 05/19/22 [employer] Other XR knee standing BI XR/XR shoulder LT min 2V*: Pain in joint, multiple sites;Pain in left [employer] Other XR knee standing BI shoulder [employer] Other XR knee standing BI ([id number]) XR/XR knee standing BI: Pain in joint, multiple sites;Pain in right knee;Pain in lef [employer] Other XR knee standing BI LEFT SHOULDER - - 3 views bilateral knee series, one view each [employer] Other XR knee standing BI CLINICAL HISTORY: Frozen left shoulder for 4 months. Bilateral knee pain left greater than right [employer] Other XR knee standing BI with standing. [facility] [employer] Other XR knee standing BI COMPARISON: Knee series 01/15/2021 [employer] Other XR knee standing BI FINDINGS: [employer] Other XR knee standing BI Left shoulder: No acute bony process or significant degenerative change. [employer] Other XR knee standing BI Knee series: No acute bony process or significant degenerative change. [employer] Other XR knee standing BI XR/XR shoulder LT min 2V* [employer] Other XR knee standing BI IMPRESSION: [facility] [employer] Other XR knee standing BI NO ACUTE BONY PROCESS OR SIGNIFICANT DEGENERATIVE CHANGE INVOLVING THE KNEES OR LEFT SHOULDER. [employer] Other XR knee standing BI Impression dictated by: Jeff Hannah Jr., D.OGanga05/19/2022 3:54 PM [employer] Other XR knee standing BI Dictation Location: [place] [address] [employer] Other XR knee standing BI Transcribed By: PWS 05/19/22 [facility] [employer] Other XR knee standing BI Dictated By: Jeff Hannah Jr DO 05/19/22 [facility] [employer] Other XR knee standing BI Signed By: [employer] Other XR knee standing BI 05/19/22 1554 No rt [employer] Other POINT OF CARE GLUCOSEon 01-21 Glucose [Mass/Vol] 126 mg/dL Critically high 74-106 T he [facility] Comment on above: Performed By: #### P OCGLUC #### [facility] [address] [place], [place] [address] Dr. Alex Guy Covid-19 PCR ([facility])on 01-21 SARS-CoV-2 (COVID-19) RNA CATALINA+probe Ql (Unsp spec) Not detected Normal NOT DETECTED [facility] Comment on above: Result Comment: This test is not yet approved or cleared by the [place] FDA. When there are no FDA-approved or cleared tests available, and other criteria are met, FDA can make tests available under an emergency access mechanism called an Emergency Use Authorization (EUA). The EUA for this test is supported by the Mobile Sales Technician of Health and Human Service's (HHS's) declaration [...] consistent with SARS-CoV-2. Performed By: #### C VDTBH #### [facility] [address] [place], [place] [address] Dr. Alex Guy XR CHEST 2 Von [...] Date: 2022-02-04 07:41 Normal [facility] PROF CHEM 8 (BAS METB)on Anion gap [Moles/Vol] 10.7 mmol/L Normal [facility] Comment on above: Performed By: #### B MP ####[facility] [address] [place] [address]Dr. Alizelarry Guy Calcium [Mass/Vol] 9.3 mg/dL Normal 8.5-10.1 [facility] Comment on above: Performed By: #### B MP ####[facility] [address] [place], [place] [address]Dr. Alex Guy Chloride [Moles/Vol] 101 mmol/L Normal 98-107 [facility] Comment on above: Performed By: #### B MP ####[facility] [address] [place], [place] [address]Dr. Alizelarry Guy CO2 [Moles/Vol] 30.3 mmol/L Normal 21.0-32.0 The [facility] Comment on above: Performed By: #### B MP ####[facility] [address] [place], [place] [address]Dr. Alex Guy Creatinine [Mass/Vol] 0.91 mg/dL Normal 0.55-1.02 [facility] Comment on above: Performed By: #### B MP ####[facility] [address] [place], [place] [address]Dr. Alex Guy EGFR-AF MALIAN >60 Normal >=60 The [facility] Comment on above: Performed By: #### B MP ####[facility] [address] [place], [place] [address]Dr. Alex Guy EGFR-NON AF MALIAN >60 Normal >=60 [facility] Comment on above: Performed By: #### B MP ####[facility] [address] [place], [place] [address]Dr. Alex Guy Glucose [Mass/Vol] 84 mg/dL Normal 74-106 [facility] Comment on above: Performed By: #### B MP ####[facility] [address] [place] [address]Dr. Alex Guy Potassium [Moles/Vol] 5.0 mmol/L Normal 3.5-5.1 [facility] Comment on above: Performed By: #### B MP ####[facility] [address] [place] [address]Dr. Alex Guy Sodium [Moles/Vol] 137 mmol/L Normal 136-145 [facility] Comment on above: Performed By: #### B MP ####[facility] [address] [place] [address]Dr. Alex Guy Urea nitrogen [Mass/Vol] 8.0 mg/dL Normal 7.0-18.0 [facility] Comment on above: Performed By: #### B MP ####[facility] [address] [place] [address]Dr. Alex Guy Urea nitrogen/Creatinine [Mass ratio] 8.8 mg/mg Normal [facility] Comment on above: Performed By: #### B MP ####[facility] [address] [place] [address]Dr. Alex Guy CT FOOT LT WO CONon 12-28-19 CT FOOT LT WO CON EXAMINATION: CT [...] by: HUNG ARREDONDO Date: 2021-12-27 18:04 Normal [facility] PROGRESSon 10-19-2018 Protein mass conc HNO ID: [id number] Author: Lian Aparicio Service: ? Author Type: Physician Type: Progress Notes Filed: 10/19/2018 9:59 PM Note Text: [facility] - General Progress Note KAREN SOLIS : 1970 AGE: 48 SEX: F CSN: [id number] HOSP [facility]: [facility] [place] [facility] [place]YSICIAN: Bill Patten M.D. DATE OF [...] Psych Unit. Lian Aparicio M.D. Internal Medicine JOYNER:[id number] Normal [facility] RPRon 08-31-2018 Reagin Ab RPR Ql (S) Nonreactive Normal Nonreactive As [facility] Comment on above: Performed By: #### U A, PT, CBCDIF, GBCHEM, GBTSH, MG, RPR #### [facility] [address] [place] [id number] CBCDIFon 08-28-2018 Abs Baso 0.06 k/uL Normal 0-0.2 [facility] Comment on above: Performed By: #### U A, PT, CBCDIF, GBCHEM, GBTSH, MG, RPR #### [facility] [address] [place] [address] Abs [place] 1.08 k/uL High 0-0.8 [facility] Comment on above: Performed By: #### U A, PT, CBCDIF, GBCHEM, GBTSH, MG, RPR #### [facility] [address] [place] [address] Abs Neut 4.76 k/uL Normal 1.8-7.7 [facility] Comment on above: Performed By: #### U A, PT, CBCDIF, GBCHEM, GBTSH, MG, RPR #### [facility] [address] [place] [address] Basophils/100 WBC (Bld) 0.8 % Normal 0-1 A [facility] Comment on above: Performed By: #### U A, PT, CBCDIF, GBCHEM, GBTSH, MG, RPR #### [facility] [address] [place] [address] Eosinophils #/vol (Bld) 0.25 10*3/uL Normal 0-0.4 [facility] Comment on above: Performed By: #### U A, PT, CBCDIF, GBCHEM, GBTSH, MG, RPR #### [facility] [address] [place] [address] Eosinophils/100 WBC (Bld) 3.3 % Normal 0-4 [facility] Comment on above: Performed By: #### U A, PT, CBCDIF, GBCHEM, GBTSH, MG, RPR #### [facility] [address] [place] [address] Immature Gran 0.30 % Normal 0-1.9 [facility] Comment on above: Performed By: #### U A, PT, CBCDIF, GBCHEM, GBTSH, MG, RPR #### [facility] [address] [place] [address] Lymphocytes #/vol (Bld) 1.50 10*3/uL Normal 1.0-4.0 [facility] Comment on above: Performed By: #### U A, PT, CBCDIF, GBCHEM, GBTSH, MG, RPR #### [facility] [address] [place] [address] Lymphocytes/100 WBC (Bld) 19.6 % Low 22-44 [facility] Comment on above: Performed By: #### U A, PT, CBCDIF, GBCHEM, GBTSH, MG, RPR #### [facility] [address] [place] [address] Monocytes/100 WBC (Bld) 14.1 % High 4-12 A [facility] Comment on above: Performed By: #### U A, PT, CBCDIF, GBCHEM, GBTSH, MG, RPR #### [facility] [address] [place] [address] Neutrophils/100 WBC (Bld) 61.9 % Normal 40-70 [facility] Comment on above: Performed By: #### U A, PT, CBCDIF, GBCHEM, GBTSH, MG, RPR #### [facility] [address] [facility] [place] [address] Erythrocyte distribution width Ratio (RBC) 13.7 % Normal 11.5-14.5 [facility] Comment on above: Performed By: #### U A, PT, CBCDIF, GBCHEM, GBTSH, MG, RPR #### [facility] [address] [facility] [place] [address] Hematocrit Volume Fraction (Bld) 45.9 % Normal 36.0-46.0 [facility] Comment on above: Performed By: #### U A, PT, CBCDIF, GBCHEM, GBTSH, MG, RPR #### [facility] [address] [place] [address] Hemoglobin mass conc (Bld) 15.0 g/dL Normal 12.0-16.0 [facility] Comment on above: Performed By: #### U A, PT, CBCDIF, GBCHEM, GBTSH, MG, RPR #### [facility] [address] [place] [address] MCH Entitic mass (RBC) 31.5 pG Normal 26-34 As [facility] Comment on above: Performed By: #### U A, PT, CBCDIF, GBCHEM, GBTSH, MG, RPR #### [facility] [address] [place] [address] MCHC mass conc (RBC) 32.7 g/dL Normal 31-37 [facility] Comment on above: Performed By: #### U A, PT, CBCDIF, GBCHEM, GBTSH, MG, RPR #### [facility] [address] [place] [address] MCV Entitic volume (RBC) 96.4 fL Normal 80-100 [facility] Comment on above: Performed By: #### U A, PT, CBCDIF, GBCHEM, GBTSH, MG, RPR #### [facility] [address] [place] [address] NRBCs 0 /100 WBC Normal 0-0.9 [facility] Comment on above: Performed By: #### U A, PT, CBCDIF, GBCHEM, GBTSH, MG, RPR #### [facility] [address] [place] [address] Platelets #/vol (Bld) 248 10*3/uL Normal 150-450 As [facility] Comment on above: Performed By: #### U A, PT, CBCDIF, GBCHEM, GBTSH, MG, RPR #### [facility] [address] [place] [address] RBC #/vol (Bld) 4.76 10*6/uL Normal 4.00-5.20 [place] Comment on above: Performed By: #### U A, PT, CBCDIF, GBCHEM, GBTSH, MG, RPR #### [facility] [address] [place] [address] WBC #/vol (Bld) 7.67 10*3/uL Normal 4.5-11.0 [place] Comment on above: Performed By: #### U A, PT, CBCDIF, GBCHEM, GBTSH, MG, RPR #### [facility] [address] [place] [address] Dayanna Rich 2018 Albumin mass conc 3.9 g/dL Normal 3.5-5.0 [place] Comment on above: Performed By: #### U A, PT, CBCDIF, GBCHEM, GBTSH, MG, RPR #### [facility] [address] [place] [address] Alkaline Phos 112 U/L Normal 38-125 [facility] Comment on above: Performed By: #### U A, PT, CBCDIF, GBCHEM, GBTSH, MG, RPR #### [facility] [address] [place] [address] ALT enzyme act/vol 42 U/L Normal 9-52 [facility] Comment on above: Performed By: #### U A, PT, CBCDIF, GBCHEM, GBTSH, MG, RPR #### [facility] [address] [place] [address] Amylase enzyme act/vol 44 U/L Normal 30-110 [facility] Comment on above: Performed By: #### U A, PT, CBCDIF, GBCHEM, GBTSH, MG, RPR #### [facility] [address] [place] [address] Anion gap molar conc 12 mmol/L Normal 0-15 [facility] Comment on above: Performed By: #### U A, PT, CBCDIF, GBCHEM, GBTSH, MG, RPR #### [facility] [address] [place] [address] AST enzyme act/vol 60 U/L High 17-59 [facility] Comment on above: Performed By: #### U A, PT, CBCDIF, GBCHEM, GBTSH, MG, RPR #### [facility] [address] [place] [address] Bilirubin Ql (U) 0.5 mg/dL Normal 0.2-1.3 [facility] Comment on above: Performed By: #### U A, PT, CBCDIF, GBCHEM, GBTSH, MG, RPR #### [facility] [address] [place] [address] Calcium mass conc 9.4 mg/dL Normal 8.4-10.2 [place] Comment on above: Performed By: #### U A, PT, CBCDIF, GBCHEM, GBTSH, MG, RPR #### [facility] [address] [place] [address] Chloride molar conc 104 mmol/L Normal 98-107 [facility] Comment on above: Performed By: #### U A, PT, CBCDIF, GBCHEM, GBTSH, MG, RPR #### [facility] [address] [place] [address] Cholesterol mass conc 165 mg/dL Normal 100-199 [facility] Comment on above: Performed By: #### U A, PT, CBCDIF, GBCHEM, GBTSH, MG, RPR #### [facility] [address] [place] [address] CO2 molar conc 28 mmol/L Normal 22-30 [facility] Comment on above: Performed By: #### U A, PT, CBCDIF, GBCHEM, GBTSH, MG, RPR #### [facility] [address] [place] [address] Creatinine mass conc 0.87 mg/dL Normal 0.52-1.04 [facility] Comment on above: Performed By: #### U A, PT, CBCDIF, GBCHEM, GBTSH, MG, RPR #### [facility] [address] [place] [address] eGFR Amer >60 Normal >60 [place] Comment on above: Result Comment: MDRD calculation used for eGFR results. Performed By: #### U A, PT, CBCDIF, GBCHEM, GBTSH, MG, RPR #### [facility] [address] [place] [address] eGFR non Am >60 Normal >60 [facility] Comment on above: Performed By: #### U A, PT, CBCDIF, GBCHEM, GBTSH, MG, RPR #### [facility] [address] [place] [address] Gamma glutamyl transferase enzyme act/vol 79 U/L High 12-43 [facility] Comment on above: Performed By: #### U A, PT, CBCDIF, GBCHEM, GBTSH, MG, RPR #### [facility] [address] [place] [address] Glucose mass conc 75 mg/dL Normal 74-106 [place] Comment on above: Performed By: #### U A, PT, CBCDIF, GBCHEM, GBTSH, MG, RPR #### [facility] [address] [place] [address] LDH 496 U/L Normal 318-618 [facility] Comment on above: Performed By: #### U A, PT, CBCDIF, GBCHEM, GBTSH, MG, RPR #### [facility] [address] [place] [address] Phosphate mass conc 4.7 mg/dL High 2.5-4.5 [facility] Comment on above: Performed By: #### U A, PT, CBCDIF, GBCHEM, GBTSH, MG, RPR #### [facility] [address] [place] [address] Potassium molar conc 4.2 mmol/L Normal 3.5-5.1 [facility] Comment on above: Performed By: #### U A, PT, CBCDIF, GBCHEM, GBTSH, MG, RPR #### [facility] [address] [place] [address] Protein mass conc 6.9 g/dL Normal 6.2-8.2 [place] Comment on above: Performed By: #### U A, PT, CBCDIF, GBCHEM, GBTSH, MG, RPR #### [facility] [address] [place] [address] Sodium molar conc 140 mmol/L Normal 137-145 [place] Comment on above: Performed By: #### U A, PT, CBCDIF, GBCHEM, GBTSH, MG, RPR #### [facility] [address] [place] [address] Triglyceride mass conc 123 mg/dL Normal 35-150 [facility] Comment on above: Performed By: #### U A, PT, CBCDIF, GBCHEM, GBTSH, MG, RPR #### [facility] [address] [place] [address] Urate mass conc 2.5 mg/dL Normal 2.5-6.2 [facility] Comment on above: Performed By: #### U A, PT, CBCDIF, GBCHEM, GBTSH, MG, RPR #### [facility] [address] [place] [address] Urea nitrogen mass conc 9 mg/dL Normal 7-17 [facility] Comment on above: Performed By: #### U A, PT, CBCDIF, GBCHEM, GBTSH, MG, RPR #### [facility] [address] [place] [address] [facility] TSHon 08-28-2018 Thyrotropin Qn 6.750 uU/mL High 0.465-4.680 [facility] Comment on above: Performed By: #### U A, PT, CBCDIF, GBCHEM, GBTSH, MG, RPR #### [facility] [address] [facility] [place] [address] Magnesiumon 08-28-2018 Magnesium mass conc 2.4 mg/dL High 1.3-2.3 [facility] Comment on above: Performed By: #### U A, PT, CBCDIF, GBCHEM, GBTSH, MG, RPR #### [facility] [address] [facility] [place] [address] Protimeon 08-28-2018 Prothrombin time (PT) Coag time (PPP) 0.9 s Normal 0.6-1.1 [facility] Comment on above: Result Comment: The PT/INR [...] 3.5 for older generation mechanical heart valves. Gordyell, et al. Chest 2004: 126:204S to 233S. Performed By: #### U A, PT, CBCDIF, GBCHEM, GBTSH, MG, RPR #### [facility] [address] [place] [address] Prothrombin time (PT) Coag time (PPP) 12.2 s Normal 11.8-14.1 [facility] Comment on above: Performed By: #### U A, PT, CBCDIF, GBCHEM, GBTSH, MG, RPR #### [facility] [address] [facility] [place] [address] T3 Totalon 08-28-2018 T3 Total 1.0 ng/mL Normal 0.970-1.69 [facility] Comment on above: Performed By: #### T 3TOT, T3U, T4 #### [facility] [address] [place], [place] [id number] T3 Uptakeon 08-28-2018 T3 Uptake 29.7 % Normal 23.5-40.5 [facility] Comment on above: Performed By: #### T 3TOT, T3U, T4 #### [facility] [address] [place], [place] [id number] T4on 08-28-2018 T4 4.4 ug/dL Low 5.5-11.0 [facility] Comment on above: Performed By: #### T 3TOT, T3U, T4 #### [facility] [address] [place], [place] [address] Urinalysison 08-28-2018 Bilirubin mass conc Negative Normal Negative [facility] Comment on above: Performed By: #### U A, PT, CBCDIF, GBCHEM, GBTSH, MG, RPR #### [facility] [address] [place] [address] Clarity Nom (U) Clear Normal Clear [facility] Comment on above: Performed By: #### U A, PT, CBCDIF, GBCHEM, GBTSH, MG, RPR #### [facility] [address] [place] [address] Color Nom (U) Straw Critically abnormal Yellow [facility] Comment on above: Performed By: #### U A, PT, CBCDIF, GBCHEM, GBTSH, MG, RPR #### [facility] [address] [place], [place] [id number] Comments MICROSCOPIC ANALYSIS NOT DONE ON URINES WITH NEGATIVE BIOCHEMICAL TESTS Normal [facility] Comment on above: Performed By: #### U A, PT, CBCDIF, GBCHEM, GBTSH, MG, RPR #### [facility] [address] [place], [place] [id number] Glucose mass conc Negative Normal Negative [place] Comment on above: Performed By: #### U A, PT, CBCDIF, GBCHEM, GBTSH, MG, RPR #### [facility] [address] [place] [address] Hemoglobin/Blood Negative Normal Negative [facility] Comment on above: Performed By: #### U A, PT, CBCDIF, GBCHEM, GBTSH, MG, RPR #### [facility] [address] [place] [address] Ketone Negative Normal Negative [facility] Comment on above: Performed By: #### U A, PT, CBCDIF, GBCHEM, GBTSH, MG, RPR #### [facility] [address] [place] [address] Leukest Negative Normal Negative [facility] Comment on above: Performed By: #### U A, PT, CBCDIF, GBCHEM, GBTSH, MG, RPR #### [facility] [address] [place] [address] Nitrite Ql (U) Negative Normal Negative [facility] Comment on above: Performed By: #### U A, PT, CBCDIF, GBCHEM, GBTSH, MG, RPR #### [facility] [address] [place] [address] pH (U) 7.0 [pH] Normal 5-7 [facility] Comment on above: Performed By: #### U A, PT, CBCDIF, GBCHEM, GBTSH, MG, RPR #### [facility] [address] [place] [address] Protein mass conc (U) Negative Normal Negative [facility] Comment on above: Performed By: #### U A, PT, CBCDIF, GBCHEM, GBTSH, MG, RPR #### [facility] [address] [place] [address] Urine Spec [place] 1.004 Low 1.005-1.030 [facility] Comment on above: Performed By: #### U A, PT, CBCDIF, GBCHEM, GBTSH, MG, RPR #### [facility] [address] [place] [address] Urobilinogen Qn (U) <2.0 Normal 0.0-1.0 [facility] Comment on above: Performed By: #### U A, PT, CBCDIF, GBCHEM, GBTSH, MG, RPR #### [facility] [address] [place] [address] [facility] HEALTHon 08-27-2018 ALLIED HEALTH HNO ID: [id number] Author: Yazmin (Therapist) Adriano Service: Music Therapy [...] open to the activities. SIGNATURE: Yazmin Oh [place]- PATIENT NAME: Karen Solis DATE: August 27, 2018 TIME: 3:49 PM [facility] ALLIED HEALTH HNO ID: [id number] Author: Gifty De Luna (Lsw) Service: Art [...] She is [facility]. She feels if she would've went home family stress and idle time would leave her to relapse. SIGNATURE: Gifty De Luna, FABRIC MACHINE OPERATOR,ATR, OFFICE ADMINISTRATION PATIENT NAME: Karen Solis DATE: August 27, 2018 TIME: 1:47 PM [facility] PROGRESSon 08-27-2018 Protein mass conc HNO ID: [id number] Author: Lian Aparicio Service: ? Author Type: Physician Type: Progress Notes Filed: 10/20/2018 9:46 PM Note Text: [facility] - General Progress Note KAREN SOLIS : 1970 AGE: 48 SEX: F CSN: [id number] [facility]: [facility] [place] [facility] [place]YSICIAN: Bill Patten M.D. DATE OF [...] Smoking cessation. Lian Aparicio M.D. Internal Medicine JOYNER:[id number] [facility] ALLIED HEALTHon 08-26-2018 ALLIED HEALTH HNO ID: [id number] Author: Lashell (Therapist) Britton Service: Art Therapy [...] travel to [place]. SIGNATURE: Lashell Jarquin [facility] ATR PATIENT NAME: Karen Solis DATE: August 26, 2018 TIME: 3:51 PM [facility] HNO ID: [id number] Author: RASHMI Alanis Service: Recreational Therapy Author [...] DATE: August 26, 2018 TIME: 2:49 PM [facility] HNO ID: [id number] Author: Yazmin (Therapist) Adriano Service: Music Therapy Author Type: Therapist Type: Allied Health Filed: 08/26/2018 2:01 PM Note Text: GROUP PROGRESS NOTE SERVICE DATE: 08/26/2018 SERVICE TIME: 1100 Length (minutes): 45 Attendance: Attended 3/4 to Full Participation Level: [...] 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 SIGNATURE: MAI Tristan PATIENT NAME: Karen Solis DATE: August 26, 2018 TIME: 1:53 PM [facility] ALLIED HEALTH HNO ID: [id number] Author: Gifty Kaplan) Calixto Service: Art Therapy Author Type: Art Therapist Type: Allied Health Filed: 08/26/2018 11:17 AM Note Text: [...] anxious and optimistic about discharge today to [facility] for residential She values her family, dogs, health, God and happiness. She feels her family thinks she values her sobriety and strength currently. She continues to want to work on earning her families trust and respect back . SIGNATURE: Gifty De Luna, ELOY,ATR, OFFICE ADMINISTRATION PATIENT NAME: Karen Solis DATE: August 26, 2018 TIME: 11:08 AM Normal [facility] CBC and Differentialon 08-26 Abs Baso 0.04 k/uL Normal <0.11 [facility] Comment on above: Performed By: #### U HCG, UAWMIC, UTOX2 #### [place] [address] Abs [place] 1.07 k/uL High <0.87 [facility] Comment on above: Performed By: #### U HCG, UAWMIC, UTOX2 #### [place] [address] Abs Neut 6.92 k/uL Normal 1.45-7.50 [facility] Comment on above: Performed By: #### U HCG, UAWMIC, UTOX2 #### [place] [address] Basophils/100 WBC (Bld) 0.4 % Normal [facility] Comment on above: Performed By: #### U HCG, UAWMIC, UTOX2 #### [place] [address] Eosinophils #/vol (Bld) 0.19 10*3/uL Normal <0.46 [facility] Comment on above: Performed By: #### U HCG, UAWMIC, UTOX2 #### [place] [address] Eosinophils/100 WBC (Bld) 2.1 % Normal [facility] Comment on above: Performed By: #### U HCG, UAWMIC, UTOX2 #### [place] [address] Erythrocyte distribution width Ratio (RBC) 14.0 % Normal 11.5-15.0 [facility] Comment on above: Performed By: #### U HCG, UAWMIC, UTOX2 #### [place] [address] Hematocrit Volume Fraction (Bld) 41.3 % Normal 36.0-46.0 [facility] Comment on above: Performed By: #### U HCG, UAWMIC, UTOX2 #### [place] [address] Hemoglobin mass conc (Bld) 13.9 g/dL Normal 11.5-15.5 [facility] Comment on above: Performed By: #### U HCG, UAWMIC, UTOX2 #### [place] [address] Lymphocytes #/vol (Bld) 0.86 10*3/uL Low 1.00-4.00 [facility] Comment on above: Performed By: #### U HCG, UAWMIC, UTOX2 #### [place] [address] Lymphocytes/100 WBC (Bld) 9.5 % Normal [facility] Comment on above: Performed By: #### U HCG, UAWMIC, UTOX2 #### [place] [address] MCH Entitic mass (RBC) 32.3 pG Normal 26.0-34.0 [facility] Comment on above: Performed By: #### U HCG, UAWMIC, UTOX2 #### [place] [address] MCHC mass conc (RBC) 33.7 g/dL Normal 30.5-36.0 [facility] Comment on above: Performed By: #### U HCG, UAWMIC, UTOX2 #### [place] [address] MCV Entitic volume (RBC) 95.8 fL Normal 80.0-100.0 [facility] Comment on above: Performed By: #### U HCG, UAWMIC, UTOX2 #### [place] [address] Monocytes/100 WBC (Bld) 11.8 % Normal [facility] Comment on above: Performed By: #### U HCG, UAWMIC, UTOX2 #### [place] [address] Neutrophils/100 WBC (Bld) 76.2 % Normal [facility] Comment on above: Performed By: #### U HCG, UAWMIC, UTOX2 #### [place] [address] NRBCs 0.0 /100 WBC Normal 0 [facility] Comment on above: Performed By: #### U HCG, UAWMIC, UTOX2 #### [place] [address] Platelet mean volume Entitic volume (Bld) 10.6 fL Normal 9.0-12.7 [facility] Comment on above: Performed By: #### U HCG, UAWMIC, UTOX2 #### [place] [address] Platelets #/vol (Bld) 191 10*3/uL Normal 150-400 [facility] Comment on above: Performed By: #### U HCG, UAWMIC, UTOX2 #### [place] [address] RBC #/vol (Bld) 4.31 10*6/uL Normal 3.90-5.20 [facility] Comment on above: Performed By: #### U HCG, UAWMIC, UTOX2 #### [place] [address] WBC #/vol (Bld) 9.08 10*3/uL Normal 3.70-11.00 [facility] Comment on above: Performed By: #### U HCG, UAWMIC, UTOX2 #### [place] [address] Comp Metabolic Panelon 08-26 Albumin mass conc 3.6 g/dL Low 3.9-4.9 [facility] Comment on above: Performed By: #### U HCG, UAWMIC, UTOX2 #### [place] [address] ALP enzyme act/vol 112 U/L Normal 34-123 [facility] Comment on above: Performed By: #### U HCG, UAWMIC, UTOX2 #### [place] [address] ALT enzyme act/vol 38 U/L Normal 7-38 [facility] Comment on above: Performed By: #### U HCG, UAWMIC, UTOX2 #### [place] [address] Anion gap molar conc 11 mmol/L Normal 9-18 [facility] Comment on above: Performed By: #### U HCG, UAWMIC, UTOX2 #### [place] [address] AST enzyme act/vol 51 U/L High 13-35 [facility] Comment on above: Performed By: #### U HCG, UAWMIC, UTOX2 #### [place] [address] Bilirubin mass conc 0.3 mg/dL Normal 0.2-1.3 [facility] Comment on above: Performed By: #### U HCG, UAWMIC, UTOX2 #### [place] [address] Calcium mass conc 9.1 mg/dL Normal 8.5-10.2 [facility] Comment on above: Performed By: #### U HCG, UAWMIC, UTOX2 #### [place] [address] Chloride molar conc 103 mmol/L Normal 97-105 [facility] Comment on above: Performed By: #### U HCG, UAWMIC, UTOX2 #### [place] [address] CO2 molar conc 24 mmol/L Normal 22-30 [facility] Comment on above: Performed By: #### U HCG, UAWMIC, UTOX2 #### [place] [address] Creatinine mass conc 0.88 mg/dL Normal 0.58-0.96 [facility] Comment on above: Performed By: #### U HCG, UAWMIC, UTOX2 #### [place] [address] eGFR- Amer. >60 Normal >60 [facility] Comment on above: Performed By: #### U HCG, UAWMIC, UTOX2 #### [place] [address] GFR/1.73 sq M predicted among non-blacks MDRD vol rate/area (S/P/Bld) mL/min/{1.73_m2} Normal >60 [facility] Comment on above: Result Comment: eGFR (Estimated [...] By: #### U HCG, UAWMIC, UTOX2 #### [place] [address] Glucose mass conc 115 mg/dL High 74-99 [facility] Comment on above: Performed By: #### U HCG, UAWMIC, UTOX2 #### [place] [address] Potassium molar conc 4.1 mmol/L Normal 3.7-5.1 [facility] Comment on above: Performed By: #### U HCG, UAWMIC, UTOX2 #### [place] [address] Protein mass conc 5.6 g/dL Low 6.3-8.0 [facility] Comment on above: Performed By: #### U HCG, UAWMIC, UTOX2 #### [place] [address] Sodium molar conc 138 mmol/L Normal 136-144 [facility] Comment on above: Performed By: #### U HCG, UAWMIC, UTOX2 #### [place] [address] Urea nitrogen mass conc 9 mg/dL Normal 7-21 [facility] Comment on above: Performed By: #### U HCG, UAWMIC, UTOX2 #### [place] [address] Magnesiumon 03-07-2019 Magnesium mass conc 2.4 mg/dL High 1.7-2.3 [facility] Comment on above: Performed By: #### U HCG, UAWMIC, UTOX2 #### [facility] [address] [address] PROGRESSon 08-26-2018 Protein mass conc HNO ID: [id number] Author: Lian Aparicio Service: ? Author Type: Physician Type: Progress Notes Filed: 10/20/2018 9:49 PM Note Text: [facility] - General Progress Note KAREN SOLIS : 1970 AGE: 48 SEX: F CSN: [id number] [facility]: [facility] [place] [facility] [place] PHYSICIAN: Bill Patten M.D. DATE OF [...] Date - Chronic obstructive pulmonary disease (COPD) ([facility]) Social History Socioeconomic History Marital status: Unknown [...] reviewed and negative. Most recent labs reviewed [facility] [place] consultants notes reviewed Most recent images Reviewed [...] No edema Lian Aparicio M.D. Internal Medicine [facility] Phosphoruson 08-26-2018 Phosphate mass conc 4.4 mg/dL Normal 2.7-4.8 [facility] Comment on above: Performed By: #### U HCG, UAWMIC, UTOX2 #### [facility] [address] [place] [address] [facility] 08-25-2018 ALLIED HEALTH HNO ID: [id number] Author: Katy (Therapist) Ct Service: Art Therapy [...] on the back of her poem. SIGNATURE: Katy Fofana [facility], [facility] PATIENT NAME: Karen Solis DATE: August 25, 2018 TIME: 3:45 PM [facility] HNO ID: [id number] Author: Lashell (Therapist) Britton Service: Art Therapy [...] happy she is alive. SIGNATURE: Lashell Jarquin [facility] ATR PATIENT NAME: Karen Solis DATE: August 25, 2018 TIME: 1:38 PM [facility] ALLIED HEALTH HNO ID: [id number] Author: Katy (Therapist) Ct Service: Art Therapy [...] calm is music and the groups. SIGNATURE: Katy Fofana, ATR, [facility] PATIENT NAME: Karen Solis DATE: August 25, 2018 TIME: 11:24 AM [facility] NURSING PROGon 08-25-2018 Protein mass conc HNO ID: [id number] Author: Padilla (Rn) MANI Lewis Service: Nursing Author Type: Registered Nurse Type: Nursing Progress Note Filed: 08/25/2018 6:56 AM Note Text: Nursing Progress Note Patient Name: Karen Solis Patient Location: [address]/[facility]* Daily Note:[id number] At beginning of shift pt observed to [...] note was completed by: Padilla Lewis RN [facility] ALLIED HEALTHon 08-24-2018 ALLIED HEALTH HNO ID: [id number] Author: RASHMI Alanis Service: Recreational Therapy Author [...] DATE: August 24, 2018 TIME: 3:36 PM [facility] HNO ID: [id number] Author: Gifty De Luna (Lsw) Service: Art [...] for the group. SIGNATURE: Gifty De Luna LPC,ATR, OFFICE ADMINISTRATION PATIENT NAME: Karen Solis DATE: August 24, 2018 TIME: 4:49 PM [facility] HNO ID: [id number] Author: Cathy Lauren-AtrNany Corley Therapist Service: Art Therapy Author Type: Art [...] her spouse to confirm treatment option. SIGNATURE: SERA Valente-ATR PATIENT NAME: Karen Solis DATE: August 24, 2018 TIME: 2:06 PM [facility] ALLIED HEALTH O ID: [id number] Author: Gifty De Luna (Lsw) Service: Art [...] to IOP and meetings. SIGNATURE: Gifty De Luna LPC,ATR, OFFICE ADMINISTRATION PATIENT NAME: Karen Solis DATE: August 24, 2018 TIME: 1:12 PM Normal [facility] Hepatitis Remote Panelon HBsAg Negative Normal Negative [facility] Comment on above: Performed By: #### U HCG, UAWMIC, UTOX2 #### [place] [address] Hep B Core Ab,Total Negative Normal Negative [facility] Comment on above: Performed By: #### U HCG, UAWMIC, UTOX2 #### [place] [address] Hepatitis C Ab IA Negative Normal Negative [facility] Comment on above: Performed By: #### U HCG, UAWMIC, UTOX2 #### [place] [address] HepB Surface Ab,Qual Negative Normal Negative [facility] Comment on above: Result Comment: NEGA TIVE Performed By: #### U HCG, UAWMIC, UTOX2 #### [place] [address] NURSING PROGon 08-24-2018 Protein mass conc HNO ID: [id number] Author: Padilla (Rn) MANI Lewis Service: Nursing Author Type: Registered Nurse Type: Nursing Progress Note Filed: 08/24/2018 7:01 AM Note Text: Nursing Progress Note Patient Name: Karen Solis Patient Location: [address]/[place] [address]* Daily Note:[id number] At beginning of shift pt observed to [...] was completed by: Padilla Lewis RN Normal [facility] PROGRESSon 08-24-2018 Protein mass conc HNO ID: [id number] Author: Lian Aparicio Service: ? Author Type: Physician Type: Progress Notes Filed: 10/17/2018 11:37 PM Note Text: [facility] - General Progress Note KAREN SOLIS : 1970 AGE: 48 SEX: F CSN: [id number] [facility]: [facility] [place] [facility] [place] PHYSICIAN: Bill Patten M.D. DATE OF [...] Date - Chronic obstructive pulmonary disease (COPD) ([facility]) Social History Socioeconomic History Marital status: Unknown [...] edema Lian Aparicio M.D. Internal Medicine Normal [facility] Syphilis IgG with Confon Syphilis IgG <0.2 Normal [facility] Comment on above: Result Comment: Anti body index is interpreted as follows: Non reactive SPECIMENS <=0.8 Weak reactive SPECIMENS 0.9 to 5.9 Reactive SPECIMENS >=6.0 Performed By: #### U HCG, UAWMIC, UTOX2 #### [place] [address] Syphilis IgG, Qual Nonreactive Normal Nonreactive [facility] Comment on above: Result Comment: No s erological evidence of infection with T. pallidum. Performed By: #### U HCG, UAWMIC, UTOX2 #### [place] [id number] XR LUMBAR 2V AP/LATon 2018 XR LUMBAR [...] Left-sided convex curvature of the lumbar spine. Streetcar Dis[facility] Trans[facility] Date/Time: Aug 24 2018 9:30A Dictated by : ARMAND EVANS MD This examination was interpreted and the report reviewed and electronically signed by: ARMAND EVANS MD on Aug 24 2018 9:33AM EST [id number] [id number] [facility] 08-23-2018 ALLIED [facility] HNO ID: [id number] Author: Cathy [facility]Atr[facility] Hess Service: Art Therapy Author Type: Art Therapist Type: Allied Health Filed: 08/23/2018 5:36 PM Note Text: GROUP [...] to feel little better. SIGNATURE[facility]: Karen Solis DATE: August 23, 2018 TIME: 5:33 PM [facility] HNO ID: [id number] Author: Moncho Hollins (Chaplain) Service: Spiritual Care Author Type: Engine Turner Type: Allied Health Filed: 08/23/2018 12:24 PM Note Text: [...] DATE: August 23, 2018 TIME: 12:23 PM [facility] HNO ID: [id number] Author: Gifty De Luna (Lsw) Service: Art Therapy Author Type: Art Therapist Type: Allied Health Filed: 08/23/2018 11:16 AM Note Text: GROUP PROGRESS NOTE SERVICE DATE: 08/23/2018 SERVICE TIME: 9:30 AM Length (minutes): 60 Attendance: Sleeping Participation Level: Did Not Attend GROUP PARTICIPATION: Group Topics: Community Meeting: Reflective Quotes, Symptom AND Mood Check-In and Treatment Progress SIGNATURE: Gifty De Luna, ELOY,ATR, OFFICE ADMINISTRATION PATIENT NAME: Karen Solis DATE: August 23, 2018 TIME: 11:15 AM [facility] PROGRESSon 08-23-2018 Protein mass conc HNO ID: [id number] Author: Patsy Juarez Service: General Internal Medicine [...] (Patients 3 to 64 years) (PF) (FLUZONE ) 0.5 mL INTRAMUSCULAR ONCE (IMMUNIZATION) - escitalopram [...] Patsy Juarez MD DATE: August 23, 2018 [facility] PROGRESSon 08-22-2018 Protein mass conc HNO ID: [id number] Author: Lian Aparicio Service: ? Author Type: Physician Type: Progress Notes Filed: 10/18/2018 10:26 PM Note Text: [facility] - General Progress Note KAREN SOLIS : 1970 AGE: 48 SEX: F CSN: [id number] [facility]: [facility] [place] [facility] [place] PHYSICIAN: Bill Patten M.D. DATE OF [...] Date - Chronic obstructive pulmonary disease (COPD) ([facility]) Social History Socioeconomic History Marital status: Unknown [...] reviewed and negative. [facility] Most recent images Reviewed [...] / radial Lian Aparicio M.D. Internal Medicine [facility] 08-21-2018 ALLIED HEALTH HNO ID: [id number] Author: Gifty De Luna (Lsw) Service: Art [...] therapist attempted to assess. Pt last on [facility] 2012. Therapist will continue to encourage her to attend groups once she is awake/alert. SIGNATURE: Gifty De Luna LPC, ATR, LSW PATIENT NAME: Karen Solis DATE: August 21, 2018 TIME: 1:48 PM PAGER/CONTACT #: [facility] HNO ID: [id number] Author: Gifty De Luna (Lsw) Service: Art [...] DATE: August 21, 2018 TIME: 2:08 PM [facility] HNO ID: [id number] Author: Gifty De Luna (Lsw) Service: Art Therapy Author Type: Art Therapist Type: Allied Health Filed: 08/21/2018 11:22 AM Note Text: GROUP PROGRESS NOTE SERVICE DATE: 08/21/2018 SERVICE TIME: 11:00 AM Length (minutes): 30 Attendance: Sleeping Participation Level: Did Not Attend GROUP PARTICIPATION: Group Topics: Community Resources: Alcoholics Anonymous SIGNATURE: Gifty De Luna LPC, ATR, LSW PATIENT NAME: Karen Solis DATE: August 21, 2018 TIME: 11:22 AM [facility] HNO ID: [id number] Author: Gifty De Luna (Lsw) Service: Art Therapy Author Type: Art Therapist Type: Allied Health Filed: 08/21/2018 9:43 AM Note Text: GROUP PROGRESS NOTE SERVICE DATE: 08/21/2018 SERVICE TIME: 9:15 AM Length (minutes): 15 Attendance: Sleeping Participation Level: Did Not Attend GROUP PARTICIPATION: Group Topics: Community Meeting: Reflective Quotes, Symptom AND Mood Check-In and Treatment Progress SIGNATURE: Gifty De Luna LPC,ATR, OFFICE ADMINISTRATION PATIENT NAME: Karen Solis DATE: August 21, 2018 TIME: 9:43 AM [facility] CBC and Differentialon 08-21 Abs Baso 0.05 k/uL Normal <0.11 [facility] Comment on above: Performed By: #### C BCDIF, ALCO, CMP, MG1 #### [place] [address] Abs [place] 0.69 k/uL Normal <0.87 [facility] Comment on above: Performed By: #### C BCDIF, ALCO, CMP, MG1 #### [place] [address] Abs Neut 3.91 k/uL Normal 1.45-7.50 [facility] Comment on above: Performed By: #### C BCDIF, ALCO, CMP, MG1 #### [place] [address] Basophils/100 WBC (Bld) 0.8 % Normal [facility] Comment on above: Performed By: #### C BCDIF, ALCO, CMP, MG1 #### [place] [address] Eosinophils #/vol (Bld) 0.12 10*3/uL Normal <0.46 [facility] Comment on above: Performed By: #### C BCDIF, ALCO, CMP, MG1 #### [place] [address] Eosinophils/100 WBC (Bld) 1.8 % Normal [facility] Comment on above: Performed By: #### C BCDIF, ALCO, CMP, MG1 #### [place] [address] Erythrocyte distribution width Ratio (RBC) 14.2 % Normal 11.5-15.0 [facility] Comment on above: Performed By: #### C BCDIF, ALCO, CMP, MG1 #### [place] [address] Hematocrit Volume Fraction (Bld) 47.2 % High 36.0-46.0 [facility] Comment on above: Performed By: #### C BCDIF, ALCO, CMP, MG1 #### [place] [address] Hemoglobin mass conc (Bld) 17.0 g/dL High 11.5-15.5 [facility] Comment on above: Performed By: #### C BCDIF, ALCO, CMP, MG1 #### [place] [address] Lymphocytes #/vol (Bld) 1.89 10*3/uL Normal 1.00-4.00 [facility] Comment on above: Performed By: #### C BCDIF, ALCO, CMP, MG1 #### [place] [address] Lymphocytes/100 WBC (Bld) 28.4 % Normal [facility] Comment on above: Performed By: #### C BCDIF, ALCO, CMP, MG1 #### [place] [address] MCH Entitic mass (RBC) 32.7 pG Normal 26.0-34.0 [facility] Comment on above: Performed By: #### C BCDIF, ALCO, CMP, MG1 #### [place] [address] MCHC mass conc (RBC) 36.0 g/dL Normal 30.5-36.0 [facility] Comment on above: Performed By: #### C BCDIF, ALCO, CMP, MG1 #### [place] [address] MCV Entitic volume (RBC) 90.8 fL Normal 80.0-100.0 [facility] Comment on above: Performed By: #### C BCDIF, ALCO, CMP, MG1 #### [place] [address] Monocytes/100 WBC (Bld) 10.4 % Normal [facility] Comment on above: Performed By: #### C BCDIF, ALCO, CMP, MG1 #### [place] [address] Neutrophils/100 WBC (Bld) 58.6 % Normal [facility] Comment on above: Performed By: #### C BCDIF, ALCO, CMP, MG1 #### [place] [address] NRBCs 0.0 /100 WBC Normal 0 [facility] Comment on above: Performed By: #### C BCDIF, ALCO, CMP, MG1 #### [place] [address] Platelet mean volume Entitic volume (Bld) 9.1 fL Normal 9.0-12.7 [facility] Comment on above: Performed By: #### C BCDIF, ALCO, CMP, MG1 #### [place] [address] Platelets #/vol (Bld) 278 10*3/uL Normal 150-400 [facility] Comment on above: Performed By: #### C BCDIF, ALCO, CMP, MG1 #### [place] [address] RBC #/vol (Bld) 5.20 10*6/uL Normal 3.90-5.20 [facility] Comment on above: Performed By: #### C BCDIF, ALCO, CMP, MG1 #### [place] [address] WBC #/vol (Bld) 6.66 10*3/uL Normal 3.70-11.00 [facility] Comment on above: Performed By: #### C BCDIF, ALCO, CMP, MG1 #### [place] [id number] [place] [address] Comp Metabolic Panelon 08-21 Albumin mass conc 4.6 g/dL Normal 3.9-4.9 [facility] Comment on above: Performed By: #### C BCDIF, ALCO, CMP, MG1 ####[place] [id number] ALP enzyme act/vol 152 U/L High 34-123 [facility] Comment on above: Performed By: #### C BCDIF, ALCO, CMP, MG1 ####[place] [id number] ALT enzyme act/vol 31 U/L Normal 7-38 [facility] Comment on above: Performed By: #### C BCDIF, ALCO, CMP, MG1 ####[place] [id number] Anion gap molar conc 13 mmol/L Normal 9-18 [facility] Comment on above: Performed By: #### C BCDIF, ALCO, CMP, MG1 ####[place] [id number] AST enzyme act/vol 44 U/L High 13-35 [facility] Comment on above: Performed By: #### C BCDIF, ALCO, CMP, MG1 ####[place] [id number] Bilirubin mass conc 0.2 mg/dL Normal 0.2-1.3 [facility] Comment on above: Performed By: #### C BCDIF, ALCO, CMP, MG1 ####[place] [id number] Calcium mass conc 9.1 mg/dL Normal 8.5-10.2 [facility] Comment on above: Performed By: #### C BCDIF, ALCO, CMP, MG1 ####[place] [id number] Chloride molar conc 97 mmol/L Normal 97-105 [facility] Comment on above: Performed By: #### C BCDIF, ALCO, CMP, MG1 ####[address] CO2 molar conc 26 mmol/L Normal 22-30 [facility] Comment on above: Performed By: #### C BCDIF, ALCO, CMP, MG1 ####[place] [id number] Creatinine mass conc 0.69 mg/dL Normal 0.58-0.96 [facility] Comment on above: Performed By: #### C BCDIF, ALCO, CMP, MG1 ####[place] [id number] eGFR- Amer. >60 Normal >60 [facility] Comment on above: Performed By: #### C BCDIF, ALCO, CMP, MG1 ####[place] [id number] GFR/1.73 sq M predicted among non-blacks MDRD vol rate/area (S/P/Bld) mL/min/{1.73_m2} Normal >60 [facility] Comment on above: Result Comment: eGFR (Estimated [...] By: #### C BCDIF, ALCO, CMP, MG1 ####[place] [id number] Glucose mass conc 124 mg/dL High 74-99 [facility] Comment on above: Performed By: #### C BCDIF, ALCO, CMP, MG1 ####[place] [address] [place] [id number] Potassium molar conc 3.6 mmol/L Low 3.7-5.1 [facility] Comment on above: Performed By: #### C BCDIF, ALCO, CMP, MG1 ####[place] [address] [place] [id number] Protein mass conc 7.5 g/dL Normal 6.3-8.0 [facility] Comment on above: Performed By: #### C BCDIF, ALCO, CMP, MG1 ####[place] [address] [place] [id number] Sodium molar conc 136 mmol/L Normal 136-144 [facility] Comment on above: Performed By: #### C BCDIF, ALCO, CMP, MG1 ####[place] [address] [place] [id number] Urea nitrogen mass conc 5 mg/dL Low 7-21 [facility] Comment on above: Performed By: #### C BCDIF, ALCO, CMP, MG1 ####[place] [id number] ECG COMPLETEon 08-21-2018 ECG COMPLETE NAME : KAREN SOLIS PID : [id number] : 1970 Gender : Female Race : ORD : [id number] Procedure Date : Aug 20 2018 23:08:21 Edit Date : Aug 22 2018 10:03:53 Diagnosis:SINUS RHYTHM PROBABLE LEFT ATRIAL ABNORMALITY PROBABLE INFERIOR INFARCT, OLD BORDERLINE PROLONGED QT INTERVAL Abnormal ECG No Stemi ROSA MARIA 08/20 @ 2328 Confirmed by DO CRANE NICHOLAS ([id number]), news assignment editor DIONY MASCORRO ([id number]) on 08/22/2018 10:03:50 AM Ventricular Rate : 94 BPM Atrial Rate : 94 BPM P-R Interval : 196 ms QRS Duration : 82 ms Q-T Interval : 400 ms QTC Calculation(Bezet) : 500 ms P [place] : 74 degrees R [place] : 23 degrees T [place] : 46 degrees Test Reason : Pre-OP Location : 502 : ED 5 Overread By : DO CRANE NICHOLAS Edited By : DIONY MASCORRO Referred By : , Acquired by : JONATHAN, [facility] ED NOTEon 08-21-2018 ED NOTE HNO ID: [id number] Author: Mary MoctezumaRn) MANI Quintana Service: (none) Author Type: Registered Nurse Type: ED Notes Filed: 08/21/2018 12:00 AM Note Text: Patient resting in bed, rise and fall of chest observed. Safety maintained and will continue to monitor [facility] ED NOTE HNO ID: [id number] Author: Mary MoctezumaRn) MANI Quintana Service: (none) Author Type: Registered Nurse Type: ED Notes Filed: 08/20/2018 11:38 PM Note Text: Medication given. Patient educated on medication and verbalized understanding. Patient agreeable with POC. Will continue to monitor. [facility] ED NOTE HNO ID: [id number] Author: Mary MoctezumaRn) MANI Quintana Service: (none) Author Type: Registered Nurse Type: ED Notes Filed: 08/20/2018 11:26 PM Note Text: Intake at bedside [facility] ED NOTE HNO ID: [id number] Author: Mary MoctezumaRn) MANI Quintana Service: (none) Author Type: Registered Nurse Type: ED Notes Filed: 08/20/2018 11:14 PM Note Text: Labs were drawn and sent. [facility] ED NOTE HNO ID: [id number] Author: Mary MoctezumaRn) MANI Quintana Service: (none) Author Type: Registered Nurse Type: ED Notes Filed: 08/20/2018 11:11 PM Note Text: Medication given. Patient educated on medication and verbalized understanding. Patient agreeable with POC. Will continue to monitor. [facility] ED NOTE HNO ID: [id number] Author: Gwendolyn MoctezumaRn) Clem Rod RN Service: Nursing Author Type: Registered Nurse Type: ED Notes Filed: 08/20/2018 10:55 PM Note Text: Clean catch urine specimen obtained and sent. [facility] ED NOTE HNO ID: [id number] Author: Rubén MoctezumaRn) Gray, RN Service: (none) Author Type: Registered Nurse Type: ED Notes Filed: 08/20/2018 10:53 PM Note Text: Patient has an ID Band on, family at bedside, bed in lowest locked position. Patient provided hospital gown and pants and non slip socks. Patient to restroom to provide sample at this time. [facility] ED PROV NOTEon 08-21-2018 Protein mass conc HNO ID: [id number] Author: Ramin Crane DO Service: Emergency Medicine [...] provided by: Patient, medical records and relative paper cleaner used: No PAST MEDICAL HISTORY Diagnosis Date [...] per minute AXIS: Normal axis INTERVALS: Normal WI interval QRS COMPLEX: Normal ST SEGMENT: Normal [...] DO Ramin Ventura DO 08/20/18 2347 Normal [facility] Ethanolon 08-21-2018 Ethanol mass conc 247 mg/dL High <11 [facility] Comment on above: Performed By: #### C BCDIF, ALCO, CMP, MG1 #### [facility] [address] [place] [address] HCG Qual, Urineon 08-21-2018 HCG.beta subunit ( test) Ql (U) Negative Normal Negative [facility] Comment on above: Performed By: #### U HCG, UAWMIC, UTOX2 #### [place] [address] Magnesiumon 08-21-2018 Magnesium mass conc 2.2 mg/dL Normal 1.7-2.3 [facility] Comment on above: Performed By: #### C BCDIF, ALCO, CMP, MG1 ####[address] [id number] NURSING PROGon 08-21-2018 Protein mass conc HNO ID: [id number] Author: Padilla (Rn) MANI Lewis Service: Nursing Author Type: Registered Nurse Type: Nursing Progress Note Filed: 08/21/2018 6:37 AM Note Text: Nursing Progress Note Patient Name: Karen Solis Patient Location: [id number]/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 Last use of mood altering substances: Thursday Night at 2230 Initiating circumstances: family intervention convinced pt to seek treatment CD treatment AND sobriety history: 1 past detox in 2013 here on [facility], was sober 3 years and has been [...] to toe assessment: Patient presented to the [facility] dressed in a hospital gown with all [...] note was completed by: Padilla Lewis RN [facility] Protein mass conc HNO ID: [id number] Author: Padilla (Rn) MANI Lewis Service: Nursing Author Type: Registered Nurse Type: Nursing Progress Note Filed: 08/21/2018 6:30 AM Note Text: Nursing Progress Note Patient Name: Karen Solis Patient Location: [address]/[facility]-405* SENSITIVE [facility] SUICIDE RISK ASSESSMENT PATIENT NAME: Karen Solis SERVICE DATE: 08/21/2018 SERVICE TIME: 409 LETHALITY FACTORS: Access to Means: Any firearms in home?No Moved a firearm recently?No Any current suicide plan not involving firearm? No Is patient an inpatient in [facility]?Yes--does any suicide plan suggest risk of harm [...] Presence of Meaningful Daily Activities?Yes Currently employed?No Adventist Affiliation?Yes Therapeutic [place]: Does pt believe treatment can help his/her negative feelings?Yes History of good medication compliance in past?Yes FORMULATION OF SUICIDE RISK: low Will any interventions be undertaken to address above-listed Lethality or Protective Factors? Reduce alcohol and drug abuse Consult Pastoral Care to improve yazidism affiliation SIGNATURE: Padilla Lewis RN DATE: August 21, 2018 TIME: 6:27 AM Assessment adapted from Suicide Prevention Toolkit for Implementation of NPSG 15A by [facility] Resources This note was completed by: Padilla Lewis RN [facility] PROGRESSon 08-21-2018 Protein mass conc HNO ID: [id number] Author: Lian Aparicio Service: ? Author Type: Physician Type: Progress Notes Filed: 10/17/2018 7:16 PM Note Text: [facility] - General Progress Note KAREN SOLIS : 1970 AGE: 48 SEX: F CSN: [id number] [facility]: [facility] [place] [facility] [place]ICIAN: Bill Patten M.D. DATE OF [...] aerosol treatment. Lian Aparicio M.D. Internal Medicine JOYNER:[id number] [facility] Protein mass conc HNO ID: [id number] Author: Downtime Note Service: ? Author Type: ? Type: Progress Notes Filed: 08/21/2018 5:27 AM Note Text: Epic Scheduled Downtime: 08/21/2018 1:00:00 AM to 08/21/2018 5:17:00 AM [facility] Toxicology Screen,Uron 08-21 Amphetamines, Urine Negative Normal Negative [facility] Comment on above: Result Comment: Cuto ff threshold at 1000 ng/mL. Performed By: #### U HCG, UAWMIC, UTOX2 #### [place] [address] Barbiturates, Urine Negative Normal Negative [facility] Comment on above: Result Comment: Cuto ff threshold at 200 ng/mL. Performed By: #### U HCG, UAWMIC, UTOX2 #### [place] [address] Benzodiazepines, Ur Negative Normal Negative [facility] Comment on above: Result Comment: Cuto ff threshold at 200 ng/mL. Performed By: #### U HCG, UAWMIC, UTOX2 #### [place] [phone] Cannabinoids, Urine Negative Normal Negative [facility] Comment on above: Result Comment: Cuto ff threshold at 50 ng/mL. Performed By: #### U HCG, UAWMIC, UTOX2 #### [place] [address] Cocaine, Urine Negative Normal Negative [facility] Comment on above: Result Comment: Cuto ff threshold at 300 ng/mL. Performed By: #### U HCG, UAWMIC, UTOX2 #### [place] [address] Ethanol, Urine 291 mg/dL High <11 [facility] Comment on above: Performed By: #### U HCG, UAWMIC, UTOX2 #### [place] [address] Opiates, Urine Negative Normal Negative [facility] Comment on above: Result Comment: Cuto ff threshold at 300 ng/mL. Performed By: #### U HCG, UAWMIC, UTOX2 #### [place] [address] Oxycodone, Urine Negative Normal Negative [facility] [...] on the same specimen through Client Services ([phone]) if contacted within 48 hours of initial testing. [1]Substance Abuse and Mental Health Services Administration (2012). Clinical Drug Testing in Primary Care Technical Assistance Publication Series 32. Department of Health and Human Services, [place], p.10. Performed By: #### U HCG, UAWMIC, UTOX2 #### [place] [address] Phencyclidine, Urine Negative Normal Negative [facility] Comment on above: Result Comment: Cuto ff threshold at 25 ng/mL. Performed By: #### U HCG, UAWMIC, UTOX2 #### [place] [address] Urinalysis with Microscopico n 08-21-2018 Bilirubin, Urine Negative Normal Negative [facility] Comment on above: Performed By: #### U HCG, UAWMIC, UTOX2 #### [place] [address] Cast SEE COMMENT Normal 0 [facility] Comment on above: Result Comment: 0 Performed By: #### U HCG, UAWMIC, UTOX2 #### [place] [address] Clarity Nom (U) Clear Normal Clear [facility] Comment on above: Performed By: #### U HCG, UAWMIC, UTOX2 #### [place] [address] Color Nom (U) Straw Critically abnormal Yellow [facility] Comment on above: Performed By: #### U HCG, UAWMIC, UTOX2 #### [place] [address] Epithelial cells LM.HPF #/area (Urine sed) SEE COMMENT Normal [facility] Comment on above: Result Comment: Squa mous 2-5 Performed By: #### U HCG, UAWMIC, UTOX2 #### [place] [address] Glucose Ql (U) Negative Normal Negative [facility] Comment on above: Performed By: #### U HCG, UAWMIC, UTOX2 #### [place] [address] Hemoglobin/Blood,Ur Trace Critically abnormal Negative [facility] Comment on above: Performed By: #### U HCG, UAWMIC, UTOX2 #### [place] [address] Ketones Ql (U) Negative Normal Negative [facility] Comment on above: Performed By: #### U HCG, UAWMIC, UTOX2 #### [place] [address] Leukest Trace Critically abnormal Negative [facility] Comment on above: Performed By: #### U HCG, UAWMIC, UTOX2 #### [place] [address] Nitrite Ql (U) Negative Normal Negative [facility] Comment on above: Performed By: #### U HCG, UAWMIC, UTOX2 #### [place] [address] pH (Bld) 6.0 Normal 4.5-8.0 [facility] Comment on above: Performed By: #### U HCG, UAWMIC, UTOX2 #### [place] [address] Protein mass conc (U) Negative Normal Negative [facility] Comment on above: Performed By: #### U HCG, UAWMIC, UTOX2 #### [place] [address] RBC #/vol (U) 0-3 Normal 0-3 [facility] Comment on above: Performed By: #### U HCG, UAWMIC, UTOX2 #### [place] [address] Specific [place], Ur <=1.005 Normal 1.005-1.030 [facility] Comment on above: Performed By: #### U HCG, UAWMIC, UTOX2 #### [place] [address] Urobilinogen Qn (U) 0.2 Normal 0.2-1.0 [facility] Comment on above: Performed By: #### U HCG, UAWMIC, UTOX2 #### [place] [address] WBC #/vol (Bld) 0-5 Normal 0-5 [facility] Comment on above: Performed By: #### U HCG, UAWMIC, UTOX2 #### [place] [address] HISTORY PHYSICALon 9 HISTORY PHYSICAL HNO ID: [id number] Author: Lian Aparicio Service: ? Author Type: Physician Type: HANDP Filed: 08/23/2018 4:01 PM Note Text: [facility] - History and Physical KAREN SOLIS : 1970 AGE: 48 SEX: F CSN: [id number] [facility]: [facility] [place] [facility] [place]YSICIAN: NALINI NI ADMIT DATE: 08/20/2018 [...] Date - Chronic obstructive pulmonary disease (COPD) ([facility]) Social History Socioeconomic History Marital status: Spouse [...] reviewed and negative. [facility] Most recent images Reviewed Last EKG/Rhythm reviewed Med list reviewed per AAKASH Hunetr reviewed VS noted per RN Chart GENERAL: [...] F/u cmp Lian Aparicio M.D. Internal Medicine [facility] Vital Signs Date Time Vital Sign Value Performing Clinician Facility 07-20-2023 13:15-050 Body height 170.18 cm Isiah Purcell Other [facility] 07-20-2023 13:15-0500 Body mass index (BMI) [Ratio] 22.71 kg/m2 Isiah Purcell Other [facility] Other 07-20-2023 13:15-0500 Body weight 65.77 kg Isiah Purcell Other [facility] 06-10-2023 14:45-0500 Diastolic blood pressure 82 mm[Hg] DO Christin Grullon Work Phone: [facility] 06-10-2023 14:45-0500 Heart rate 70 /min DO Christin Grullon Work Phone: [facility] 06-10-2023 14:45-0500 Respiratory rate 16 /min DO Christin Grullon Work Phone: [facility] 06-10-2023 14:45-0500 SaO2% (BldA) [Mass fraction] 96 % DO Christin Grullon Work Phone: [facility] 06-10-2023 14:45-0500 Systolic blood pressure 132 mm[Hg] DO Christin Grullon Work Phone: [facility] 06-10-2023 12:17-0500 Body temperature 97.7 [degF] DO Christin Grullon Work Phone: [facility] 06-10-2023 12:17-0500 Inhaled oxygen flow rate 6 L/min DO Christin Grullon Work Phone: [facility] 06-10-2023 09:27-0500 Body height 167.64 cm DO Christin Grullon Work Phone: [facility] 06-10-2023 09:27-0500 Body mass index (BMI) [Ratio] 23.5 kg/m2 DO Christin Grullon Work Phone: [facility] 06-10-2023 09:27-0500 Body weight 66 kg DO Christin Grullon Work Phone: [facility] 05-25-2023 10:15-0500 Body height 170.18 cm Isiah Purcell Other [facility] Other 05-25-2023 10:15-0500 Body mass index (BMI) [Ratio] 23.02 kg/m2 Isiah Purcell Other [facility] Other 05-25-2023 10:15-0500 Body weight 66.68 kg Isiah Purcell Other [facility] Other 05-05-2023 09:20-0500 Diastolic blood pressure 74 mm[Hg] DO Christin Grullon Work Phone: [facility] 05-05-2023 09:20-0500 Heart rate 66 /min DO Christin Grullon Work Phone: [facility] 05-05-2023 09:20-0500 Respiratory rate 16 /min DO Christin Grullon Work Phone: [facility] 05-05-2023 09:20-0500 SaO2% (BldA) [Mass fraction] 100 % DO Christin Grullon Work Phone: [facility] 05-05-2023 09:20-0500 Systolic blood pressure 120 mm[Hg] DO Christin Grullon Work Phone: [facility] 05-05-2023 08:42-0500 Inhaled oxygen flow rate 3 L/min DO Christin Grullon Work Phone: [facility] 05-05-2023 07:59-0500 Body height 167.64 cm DO Christin Grullon Work Phone: [facility] 05-05-2023 07:59-0500 Body weight 63.5 kg DO Christin Grullon Work Phone: [facility] 03-17-2023 14:30-0400 Body height 170.18 cm Christin Mead Other [facility] Other 02-24-2023 14:20-0400 Body height 170.18 cm Clovis Andersen Other [facility] Other 02-24-2023 14:20-0400 Body mass index (BMI) [Ratio] 23.02 kg/m2 Clovis Andersen Other [facility] Other 02-24-2023 14:20-0400 Body weight 66.68 kg Clovis Andersen Other [facility] Other 02-24-2023 14:20-0400 Diastolic blood pressure 70 mm[Hg] Clovis Andersen Other [facility] Other 02-24-2023 14:20-0400 Systolic blood pressure 104 mm[Hg] Clovis Andersen Other [facility] Other 12-05-2022 12:00-0400 Body height 170.18 cm Christin Grullon Other [facility] Other 12-05-2022 12:00-0400 Body mass index (BMI) [Ratio] 20.83 kg/m2 Christin Grullon Other [facility] Other 12-05-2022 12:00-0400 Body weight 60.33 kg Christin Grullon Other [facility] Other 12-05-2022 12:00-0400 Diastolic blood pressure 62 mm[Hg] Christin Grullon Other [facility] Other 12-05-2022 12:00-0400 Respiratory rate 18 /min Christin Grullon Other [facility] Other 12-05-2022 12:00-0400 SaO2% (BldA) [Mass fraction] 98 % Christin Grullon Other [facility] Other 12-05-2022 12:00-0400 Systolic blood pressure 118 mm[Hg] Christin Grullon Other [facility] Other 09-26-2022 11:00-0400 Body height 170.18 cm Pratik Cross Other [facility] Other 09-26-2022 11:00-0400 Body mass index (BMI) [Ratio] 20.36 kg/m2 Pratik Cross Other [facility] Other 09-26-2022 11:00-0400 Body weight 58.97 kg Pratik Cross Other [facility] Other 07-16-2022 16:30-0500 Body height 170.18 cm Christin Grullon Other [facility] Other 07-16-2022 16:30-0500 Body mass index (BMI) [Ratio] 19.58 kg/m2 Christin Grullon Other [facility] Other 07-16-2022 16:30-0500 Body weight 56.7 kg Christin Grullon Other [facility] Other 07-16-2022 16:30-0500 Diastolic blood pressure 82 mm[Hg] Christin Grullon Other [facility] Other 07-16-2022 16:30-0500 Respiratory rate 18 /min Christin Grullon Other [facility] Other 07-16-2022 16:30-0500 SaO2% (BldA) [Mass fraction] 98 % Christin Grullon Other [facility] Other 07-16-2022 16:30-0500 Systolic blood pressure 136 mm[Hg] Christin Grullon Other [facility] Other 07-14-2022 11:00-0500 Body temperature 97.7 [degF] DO Christin Grullon Work Phone: [facility] 07-14-2022 11:00-0500 Diastolic blood pressure 75 mm[Hg] DO Christin Grullon Work Phone: [facility] 07-14-2022 11:00-0500 Heart rate 72 /min DO Christin Grullon Work Phone: [facility] 07-14-2022 11:00-0500 Respiratory rate 20 /min DO Christin Grullon Work Phone: [facility] 07-14-2022 11:00-0500 SaO2% (BldA) [Mass fraction] 98 % DO Christin Grullon Work Phone: [facility] 07-14-2022 11:00-0500 Systolic blood pressure 126 mm[Hg] DO Christin Grullon Work Phone: [facility] 07-10-2022 16:43-0500 Body weight 0 kg DO Christin Grullon Work Phone: [facility] 05-19-2022 14:15-0500 Body height 170.18 cm Christin Grullon Other [facility] Other 05-19-2022 14:15-0500 Body mass index (BMI) [Ratio] 19.73 kg/m2 Christin Grullon Other [facility] Other 05-19-2022 14:15-0500 Body weight 57.15 kg Christin Grullon Other [facility] Other 05-19-2022 14:15-0500 Diastolic blood pressure 77 mm[Hg] Christin Grullon Other [facility] Other 05-19-2022 14:15-0500 Respiratory rate 18 /min Christin Grullon Other [facility] Other 05-19-2022 14:15-0500 SaO2% (BldA) [Mass fraction] 99 % Christin Grullon Other [facility] Other 05-19-2022 14:15-0500 Systolic blood pressure 135 mm[Hg] Christin Grullon Other [facility] Other 05-01-2021 11:15-0500 Body height 170.18 cm Christin Grullon Other [facility] Other 05-01-2021 11:15-0500 Body mass index (BMI) [Ratio] 17.85 kg/m2 Christin Grullon Other [facility] Other 05-01-2021 11:15-0500 Body temperature 97.8 [degF] Christin Grullon Other [facility] Other 05-01-2021 11:15-0500 Body weight 51.71 kg Christin Grullon Other [facility] Other 05-01-2021 11:15-0500 Diastolic blood pressure 84 mm[Hg] Christin Grullon Other [facility] Other 05-01-2021 11:15-0500 Respiratory rate 16 /min Christin Grullon Other [facility] Other 05-01-2021 11:15-0500 SaO2% (BldA) [Mass fraction] 100 % Christin Grullon Other [facility] Other 05-01-2021 11:15-0500 Systolic blood pressure 128 mm[Hg] Christin Grullon Other [facility] Other 03-20-2021 14:15-0400 Body height 170.18 cm Christin Grullon Other [facility] Other 03-20-2021 14:15-0400 Body mass index (BMI) [Ratio] 18.32 kg/m2 Christin Grullon Other [facility] Other 03-20-2021 14:15-0400 Body temperature 99 [degF] Christin Grullon Other [facility] Other 03-20-2021 14:15-0400 Body weight 53.07 kg Christin Grullon Other [facility] Other 03-20-2021 14:15-0400 Diastolic blood pressure 84 mm[Hg] Christin Grullon Other [facility] Other 03-20-2021 14:15-0400 Respiratory rate 16 /min Christin Grullon Other [facility] Other 03-20-2021 14:15-0400 SaO2% (BldA) [Mass fraction] 98 % Christin Grullon Other [facility] Other 03-20-2021 14:15-0400 Systolic blood pressure 118 mm[Hg] Christin Grullon Other [facility] Other Encounters Encounter Date Encounter Type Care Provider Facility Start: 10-14-2023 End: 10-14-2023 ambulatory [facility] Work Phone: Start: 10-14-2023 End: 10-14-2023 Patient encounter procedure Formerly [facility], [facility] Physician Group-[facility] Work Phone: Start: 09-30-2023 Non-patient / Non-visit Formerly [facility], [facility] Physician [facility] [place] Work Phone: Start: 09-16-2023 End: 09-16-2023 ambulatory DO Christin Grullon Work Phone: [facility] Work Phone: Start: 09-16-2023 End: 09-16-2023 Patient encounter procedure DO Christin Grullon Work Phone: Formerly [facility], [facility] Physician [facility] Work Phone: Start: 09-16-2023 Non-patient / Non-visit Formerly [facility], [facility] Physician [facility] Work Phone: Start: 09-14-2023 Non-patient / Non-visit DO Ben Grullon Work Phone: Formerly [facility], [facility] Physician [facility] [place] Work Phone: Start: 08-27-2023 End: 08-27-2023 Patient encounter procedure DO Christin Grullon Work Phone: Formerly [facility], [facility] Physician [facility] Work Phone: Start: 07-20-2023 End: 07-20-2023 ambulatory Isiah Purcell Other [facility] [employer] Other Start: 07-20-2023 Postop follow up vis it related to original px Isiah Purcell [facility] Start: 07-20-2023 End: 07-20-2023 Patient encounter procedure DO Christin Grullon Work Phone: Formerly [facility], [facility] Physician [facility]- Start: 06-24-2023 End: 06-24-2023 ambulatory Isiah Purcell Other [facility] [employer] Other Start: 06-24-2023 Telephone encounter Isiah Purcell [facility] Start: 06-23-2023 End: 06-23-2023 ambulatory Isiah Purcell Facility:[facility] Start: 06-23-2023 Postop follow up vis it related to original px Isiah Purcell [facility] Start: 06-23-2023 End: 06-23-2023 ambulatory DO Christin Grullon Work Phone: [facility] Work Phone: Start: 06-23-2023 End: 06-23-2023 Patient encounter procedure DO Christin Alcocerley Work Phone: [facility] Start: 06-23-2023 End: 06-23-2023 Patient encounter procedure DO Christin Grullon Work Phone: Formerly [facility], [facility] Physician Group-[facility] Work Phone: Start: 06-18-2023 End: 06-18-2023 ambulatory Isiah Purcell Other [facility] Other Start: 06-18-2023 Telephone encounter Isiah Purcell [facility] Start: 06-16-2023 End: 06-16-2023 ambulatory Julee Khan Other [facility] Other Start: 06-16-2023 Telephone encounter Julee Khan [facility] Start: 06-10-2023 End: 06-10-2023 ambulatory Isiah Purcell Facility:[facility] Start: 06-10-2023 End: 06-10-2023 Admission to same day surgery center DO Christin Grullon Work Phone: [facility] [place] Start: 06-09-2023 End: 06-09-2023 ambulatory Isiah Purcell Other [facility] Other Start: 06-09-2023 Telephone encounter Isiah Purcell [facility] Start: 06-08-2023 (Procedure) Brad Mead [facility] Start: 06-08-2023 End: 06-08-2023 ambulatory Christin Mead Other [facility] Other Start: 06-01-2023 End: 06-01-2023 ambulatory Isiah Purcell Facility:[facility] Start: 06-01-2023 End: 06-01-2023 ambulatory DO Christin Grullon Work Phone: [facility] Work Phone: Start: 06-01-2023 End: 06-01-2023 Patient encounter procedure DO Christin Grullon Work Phone: [facility] [employer] Work Phone: Start: 05-26-2023 End: 05-26-2023 ambulatory Christin Mead Other [facility] Other Start: 05-26-2023 Office outpatient vi sit 25 minutes Christin Mead [facility] [place] Start: 05-25-2023 End: 05-25-2023 ambulatory Isiah Purcell Other [facility] Other Start: 05-25-2023 Encounter by cresencio Grullon [facility] [place] Start: 05-25-2023 Encounter for other preprocedural examination Isiah Purcell [facility] Start: 05-25-2023 Office outpatient vi sit 40 minutes Isiah Purcell [facility] Start: 05-05-2023 (Procedure) Short Christin Mead [facility] Start: 05-05-2023 End: 05-05-2023 ambulatory Christin Mead Facility:[facility] Start: 05-05-2023 End: 05-05-2023 Admission to same day surgery center DO Christin Grullon Work Phone: [facility] Work Phone: Start: 05-05-2023 End: 05-05-2023 ambulatory DO Christin Grullon Work Phone: [facility] Work Phone: Start: 05-04-2023 End: 05-04-2023 ambulatory Christin Mead Other [facility] Other Start: 05-04-2023 Telephone encounter Christin Reyes [facility] Start: 04-29-2023 End: 04-29-2023 ambulatory Pratik Cross Other [facility] Other Start: 04-29-2023 Office outpatient vi sit 25 minutes Pratik Cross [facility] Start: 04-03-2023 End: 04-03-2023 ambulatory Pratik Cross Other [facility] Other Start: 04-03-2023 Telephone encounter Pratik Reyes [facility] Start: 04-02-2023 End: 04-02-2023 ambulatory Christin Grullon Facility:[facility] Start: 04-02-2023 End: 04-02-2023 ambulatory DO Christin Grullon Work Phone: [facility] Work Phone: Start: 04-02-2023 End: 04-02-2023 Patient encounter procedure DO Christin Grullon Work Phone: [facility] [address] Work Phone: Start: 03-17-2023 End: 03-17-2023 ambulatory Christin Mead Other [facility] Other Start: 03-17-2023 Office outpatient ne w 45 minutes Christin Mead [facility] [place] Start: 03-17-2023 Telephone encounter Christin Reyes [employer] Start: 02-24-2023 End: 02-24-2023 ambulatory Gwendolyn Barron Facility:[facility] Start: 02-24-2023 End: 02-24-2023 Patient encounter procedure DO Christin Grullon Work Phone: [facility] [address] Work Phone: Start: 02-24-2023 End: 02-24-2023 ambulatory DO Christin Grullon Work Phone: [facility] Work Phone: Start: 02-24-2023 Office outpatient ne w 30 minutes Clovis Andersen [facility] Start: 12-31-2022 End: 12-31-2022 ambulatory Christin Grullon Other [facility] [employer] Other Start: 12-31-2022 Telephone encounter Christin Reyes [facility] Start: 12-22-2022 End: 12-22-2022 ambulatory Christin Grullon Other [employer] Other Start: 12-22-2022 Telephone encounter [facility] Start: 12-05-2022 End: 12-05-2022 ambulatory Christin Grullon Other [employer] Other Start: 12-05-2022 Office outpatient vi sit 15 minutes Christin Grullon [facility] [place] Start: 09-26-2022 End: 09-26-2022 ambulatory Pratik Cross Other [employer] Other Start: 09-26-2022 Office outpatient ne w 45 minutes Pratik Cross [facility] Start: 09-24-2022 End: 09-24-2022 ambulatory Christin Grullon Facility:[facility] Start: 09-24-2022 End: 09-24-2022 ambulatory DO Christin Grullon Work Phone: [facility] Work Phone: Start: 09-24-2022 End: 09-24-2022 Patient encounter procedure DO Christin Grullon Work Phone: [facility] [address] Work Phone: Start: 07-31-2022 End: 07-31-2022 ambulatory Christin Grullon Other [facility] Other Start: 07-31-2022 Telephone encounter Christin TAN G [facility] Start: 07-30-2022 End: 07-30-2022 ambulatory Christin Grullon Facility:[facility] Start: 07-30-2022 End: 07-30-2022 ambulatory DO Christin Grullon Work Phone: [facility] Work Phone: Start: 07-30-2022 End: 07-30-2022 Patient encounter procedure DO Christin Grullon Work Phone: [facility] [address] Work Phone: Start: 07-21-2022 Encounter for preprocedural laboratory examination CINDY RODRIGEZ [facility] Start: 07-21-2022 End: 07-21-2022 amb[facility] Facility[facility] Start: 07-18-2022 End: 07-19-2022 ambulatory [facility] Facility[facility] Start: 07-18-2022 End: 07-19-2022 Encounter for preprocedural laboratory examination CINDY RODRIGEZ Facility:[facility] Start: 07-16-2022 End: 07-16-2022 ambulatory Christin Grullon Other [facility] Other Start: 07-16-2022 Office outpatient vi sit 25 minutes Christin AGUILAR [facility] Start: 07-14-2022 End: 07-15-2022 ambulatory Jose Vincent Facility:[facility] Start: 07-14-2022 End: 07-14-2022 Admission to same day surgery center DO Christin Grullon Work Phone: [facility]Ultrasound Cntr for [facility] Car Start: 07-14-2022 End: 07-14-2022 ambulatory DO Christin Grullon Work Phone: [facility] Work Phone: Start: 07-11-2022 End: 07-12-2022 ambulatory [facility] Facility:[facility] Start: 07-10-2022 End: 07-10-2022 ambulatory Jose Vincent Facility:[facility] Start: 07-10-2022 End: 07-10-2022 ambulatory DO Christin Grullon Work Phone: [facility] Work Phone: Start: 07-10-2022 End: 07-10-2022 Patient encounter procedure DO Christin Grullon Work Phone: [facility] Work Phone: Start: 07-08-2022 End: 07-08-2022 Patient encounter procedure DO Christin Grullon Work Phone: [facility] Work Phone: Start: 07-08-2022 End: 07-08-2022 ambulatory Christin Grullon [facility] Other Start: 07-08-2022 Telephone encounter Christin Reyes [facility] Start: 07-04-2022 End: 07-05-2022 ambulatory [facility] Facility:[facility] Start: 06-30-2022 End: 06-30-2022 ambulatory Christin Grullon Other [facility] Other Start: 06-30-2022 Telephone encounter Christin Reyes [facility] [place] Start: 06-25-2022 End: 06-26-2022 ambulatory [facility] Facility:[facility] Start: 06-24-2022 End: 06-24-2022 ambulatory Christin Grullon Other [facility] Other Start: 06-24-2022 Telephone encounter Christin Reyes [facility] [place] Start: 06-19-2022 End: 06-19-2022 Patient encounter procedure DO Christin Grullon Work Phone: [facility] Work Phone: Start: 06-03-2022 End: 06-03-2022 ambulatory Christin Grullon Other [facility] Other Start: 06-03-2022 Telephone encounter Christin Reyes [facility] Start: 05-28-2022 End: 05-29-2022 ambulatory CINDY RODRIGEZ Facility:[facility] Start: 05-20-2022 End: 05-20-2022 ambulatory Christin Grullon Other [facility] Other Start: 05-20-2022 Telephone encounter Christin Reyes [facility] Start: 05-19-2022 Office outpatient vi sit 15 minutes Christin AGUILAR [facility] Start: 05-19-2022 End: 05-19-2022 ambulatory DO Christin Grullon Work Phone: [facility] Other Start: 05-19-2022 End: 05-19-2022 Patient encounter procedure DO Christin Grullon Work Phone: [facility] Start: 04-30-2022 End: 05-01-2022 ambulatory CINDY RODRIGEZ Facility:[facility] Start: 04-14-2022 ambulatory CINDY RODRIGEZ Faci lity:[facility]1 Start: 04-09-2022 End: 04-10-2022 ambulatory CINDY JEANANDER Facility:[facility] Start: 03-27-2022 End: 03-28-2022 ambulatory CORWIN HANLEY Facility:[facility] Start: 03-06-2022 End: 03-07-2022 ambulatory CHRISTIN GRULLON Facility:[facility] Start: 02-28-2022 End: 02-28-2022 ambulatory CHRISTIN GRULLON Facility:[facility] Start: 02-20-2022 End: 02-21-2022 ambulatory CORWIN HANLEY Facility:[facility] Start: 02-13-2022 End: 02-13-2022 ambulatory CINDY RODRIGEZ Facility:[facility] Start: 02-10-2022 End: 02-11-2022 ambulatory CINDY RODRIGEZ Facility:[facility] Start: 02-04-2022 Encounter for preprocedural cardiovascular examination CINDY RODRIGEZ [facility] Start: 02-04-2022 Encounter for preprocedural laboratory examination [facility] Start: 02-03-2022 End: 02-04-2022 ambulatory CINDY RODRIGEZ Facility:[facility] Start: 02-03-2022 End: 02-04-2022 Encounter for preprocedural cardiovascular examination CINDY RODRIGEZ Facility:[facility] Start: 01-08-2022 End: 01-09-2022 ambulatory CORWIN HANLEY Facility:[facility] Start: 12-27-2021 End: 12-28-2021 ambulatory CORWIN HANLEY Facility:[facility] Start: 12-04-2021 End: 12-05-2021 ambulatory CINDY RODRIGEZ Facility:[facility] Start: 11-08-2021 End: 11-08-2021 ambulatory Christin Grullon Other [facility] Other Start: 11-08-2021 Telephone encounter Christin Reyes [facility] [place] Start: 05-01-2021 End: 05-01-2021 ambulatory Christin Grullon Other [facility] Other Start: 05-01-2021 Office outpatient vi sit 15 minutes Christin Grullon [facility] [place] Start: 04-18-2021 Telephone encounter Christin Reyes [facility] [place] Start: 03-20-2021 Office outpatient vi sit 15 minutes Christin Grullon [facility] [place] Start: 08-28-2018 End: 09-20-2018 Patient encounter procedure CHRISTINE Jones [facility] Start: 08-21-2018 End: 08-27-2018 Evaluation and management of inpatient [facility] Procedures Date Procedure Procedure Detail Performing Clinician Start: 06-23-2023 Plain X-ray of left shoulder DO Christin Grullon Work Phone: Start: 06-10-2023 OR Shoulder Arthro RCR/Biceps Tendon (Left) DO Christin Grullon [employer] Phone: Start: 05-05-2023 Local anesthetic lum bar facet joint nerve block DO Christin Grullon Work Phone: Start: 04-02-2023 MRI of left shoulder DO Christin Grullon [employer] Phone: Start: 02-24-2023 Radiography of thora cic spine DO Christin Grullon Work Phone: Start: 09-24-2022 MRI of cervical spin e without contrast DO Christin Grullon [employer] Phone: Start: 09-24-2022 XR pre/post mri xray DO Christin Grullon [employer] Phone: Start: 07-30-2022 MRI of head DO Christin Grullon [employer] Phone: Start: 07-14-2022 Mammography of right breast DO Christin Grullon [employer] Phone: Start: 07-14-2022 Core needle biopsy o f breast using ultrasound guidance DO Christin Grullon [employer] Phone: Start: 07-08-2022 Mammography of right breast DO Christin Grullon [employer] Phone: Start: 07-08-2022 Ultrasonography of r ight breast DO Christin Grullon [employer] Phone: Start: 06-19-2022 Dual energy X-ray absorptiometry DO Christin Grullon [employer] Phone: Start: 06-19-2022 Screening mammograph y of bilateral breasts DO Christin Grullon [employer] Phone: Start: 05-19-2022 Plain X-ray of left shoulder DO Christin Grullon [employer] Phone: Start: 05-19-2022 X-ray of both knees DO Christin Grullon [employer] Phone: Plan of Treatment Date Care Activity Detail Author Start: 06-10-2023 [facility] Start: 06-10-2023 [facility] Start: 05-05-2023 [facility] Adenosine monophosphate.cyclic [Moles/volume] in Serum or Plasma [facility] Work Phone: Patient Education Felter Diagnostic Block [facility] Work Phone: Patient referral [facility] Work Phone: Rheumatoid factor [Units/volume] in Serum or Plasma [facility] Work Phone: Immunizations Immunization Date Immunization Notes Care Provider Fa cility 06-26-2023 influenza, injectabl e, quadrivalent, preservative free Isiah Purcell Other [facility] 05-22-2021 COVID-19 mRNA, Comirnaty (Pfizer) DO Christin Grullon Work Phone: [facility] 03-20-2021 Kenalog -40 mg Christin Grullon Other [facility] Other 10-18-2020 COVID-19 Vaccine Pfi zer - Documentation Purposes Only Christin Grullon Other [facility] 09-27-2020 COVID-19 Vaccine Pfi zer - Documentation Purposes Only Christin Grullon Other [facility] 08-24-2018 pneumococcal polysaccharide vaccine, 23 valent Christin Grullon Other [facility] Payers Date Payer Category Payer Self-pay [id number] 1970 Unknown [id number] 2.16.84 0.1.718119.3.579.2.593 1970 Unknown [id number] 2.16.84 0.1.422910.3.579.2.593 1969 Unknown [id number] 2.16.84 0.1.647975.3.579.2.593 1969 Unknown [id number] 2.16.84 0.1.745631.3.579.2.593 1969 Unknown [id number] 2.16.84 0.1.681426.3.579.2.593 1969 Unknown [id number] 2.16.84 0.1.676387.3.579.2.593 1969 Unknown [id number] 2.16.84 0.1.464726.3.579.2.593 1969 Unknown [id number] 2.16.84 0.1.934557.3.579.2.593 1969 Unknown [id number] 2.16.84 0.1.092204.3.579.2.593 1969 Unknown [id number] 2.16.84 0.1.239760.3.579.2.593 1969 Unknown [id number] 2.16.84 0.1.963410.3.579.2.593 1969 Unknown [id number] 2.16.84 0.1.463455.3.579.2.593 1969 Unknown [id number] 2.16.84 0.1.279515.3.579.2.593 1969 Unknown [id number] 2.16.84 0.1.892579.3.579.2.593 1969 Unknown [id number] 2.16.84 0.1.068972.3.579.2.593 1969 Unknown [id number] 2.16.84 0.1.542630.3.579.2.593 1969 Unknown [id number] 2.16.84 0.1.985949.3.579.2.593 1969 Unknown [id number] 2.16.84 0.1.886160.3.579.2.593 1969 Unknown [id number] 2.16.84 0.1.171058.3.579.2.593 1959 Unknown [id number] 2. 16.840.1.106633.19 Unknown [id number] Unknown Mel BC/BS [id number] Unknown [id number] Unknown [id number] 2.16.8 40.1.068141.3.579.2.531 Unknown [id number] 2.16.8 40.1.600503.3.579.2.531 Unknown [id number] 2.16.8 40.1.724489.3.579.2.531 Unknown [id number] 2.16.8 40.1.376815.3.579.2.531 Unknown [id number] 2.16.8 40.1.273630.3.579.2.531 Unknown [id number] 2.16.8 40.1.451640.3.579.2.531 Unknown [id number] 2.16.8 40.1.831804.3.579.2.531 Unknown [id number] 2.16.8 40.1.168199.3.579.2.531 Unknown [id number] 2.16.8 40.1.157668.3.579.2.531 Unknown [id number] 2.16.8 40.1.821495.3.579.2.531 Unknown [id number] 2.16.8 40.1.031058.3.579.2.531 Social History Date Type Detail Facility Tobacco smoking status [facility] Unknown if ever smoked [facility] Start: 1970 Sex Assigned At Female F [facility] Sex Assigned At Sex Assigned At Bir th [employer] Other Start: 2021 End: 08-17-2023 Tobacco smoking status NDIS Ex-smoker (finding) [facility] Start: 06-01-2023 End: 06-10-2023 Tobacco smoking status NHIS Smoker (finding) [facility] Medical Equipment Procedure Code Equipment Code Equipment Origin al Text Equipment Identifier Dates Tendon/ligament bone anchor, bioabsorbable [id number] [facility] Start: 06-10-2023 Goals Date Patient Goal Desired [...] capsulitis of left shoulder (ICD-10 - M75.02) [facility] Other 01-03-2024 Evaluation note* Encounter Date Diagnosis Assessment Notes Treatment Notes Treatment Clinical Notes Jun, Other specified postprocedural states (ICD-10 - Z98.890) [facility] Other 01-02-2024 Evaluation note* Encounter Date Diagnosis [...] capsulitis of left shoulder (ICD-10 - M75.02) [facility] Other 12-28-2023 Evaluation note* Encounter Date Diagnosis Assessment Notes Treatment Notes Treatment Clinical Notes May, Other specified postprocedural states (ICD-10 - Z98.890) [facility] Other 12-19-2023 Evaluation note* Encounter Date Diagnosis Assessment Notes Treatment Notes Treatment Clinical Notes May, Other specified postprocedural states (ICD-10 - Z98.890) [facility] Other 12-05-2023 Evaluation note* Encounter Date Diagnosis [...] note writ ten by Peter Mayo MA, Renewable Energy Engineer. Edited and approved by Dr. Christin Mead MD. [facility] Other 12-04-2023 Evaluation note* Encounter Date Diagnosis [...] answered to the best of my ability. 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 Edited and approved by Dr. Christin Mead [...] negative findings were considered in medical decision-making. [facility] Other 09-05-2023 Evaluation note* Encounter Date Diagnosis [...] M19.012) Feb, Neck pain (ICD-10 - M54.2) [facility] Other 06-16-2023 Evaluation note* Encounter Date Diagnosis [...] quit she does not yet have a 73-dopm-tamo history and therefore does not qualify for [...] exercises that she can do at home. [facility] Other 04-07-2023 Evaluation note* Encounter Date Diagnosis [...] as documented in the electronic medical record. [facility] Other 01-30-2023 NotePROCEDURE: XR FOOT LT MIN [...] Electronically authenticated by: HUNG ARREDONDO Date: 2022-07-21 12:57[facility]01-25-2023 Evaluation note* Encounter Date Diagnosis Assessment Notes [...] dental work planned in the near future [facility] Other 01-17-2023 NoteReal-time ultrasound evaluation of the retroareolar and inferior central breast was performed. [facility] [employer] Other 01-09-2023 Evaluation note* Encounter Date Diagnosis Assessment Notes Treatment Notes Treatment Clinical Notes Jun, Abnormal mammogram of right breast (ICD-10 - R92.8) [facility] Other 01-05-2023 NotePROCEDURE: XR FOOT LT MIN [...] Electronically authenticated by: STERLING THOMAS Date: 2022-06-26 07:43[facility]12-07-2022 NotePROCEDURE: XR FOOT LT MIN 3 VIEWS [...] Electronically authenticated by: HUNG ARREDONDO Date: 2022-05-28 13:49[facility]11-28-2022 Evaluation note* Encounter Date Diagnosis Assessment Notes [...] malignant neoplasm of breast (ICD-10 - Z12.31) [facility] Other 11-09-2022 NotePROCEDURE: XR FOOT LT MIN [...] Electronically authenticated by: STERLING THOMAS Date: 2022-04-30 15:18[facility]10-20-2022 NotePROCEDURE: XR ANKLE LT MIN 3 V, [...] Electronically authenticated by: HUNG ARREDONDO Date: 2022-04-10 06:24[facility]10-20-2022 NotePROCEDURE: XR ANKLE LT MIN 3 V, [...] Electronically authenticated by: HUNG ARREDONDO Date: 2022-04-10 06:24[facility]10-06-2022 NotePROCEDURE: XR FOOT LT MIN 3 VIEWS [...] Electronically authenticated by: STERLING THOMAS Date: 2022-03-27 17:38[facility]09-15-2022 NotePROCEDURE: XR FOOT LT MIN 3 VIEWS [...] Electronically authenticated by: STERLING THOMAS Date: 2022-03-06 11:13[facility]09-01-2022 NotePROCEDURE: XR FOOT LT MIN 3 VIEWS [...] Electronically authenticated by: HUNG ARREDONDO Date: 2022-02-20 10:51[facility]08-26-2022 NotePROCEDURE: XR FOOT LT 2V HISTORY: Pain COMPARISON: XR foot left 12/04/2021 FINDINGS: BONES:Multiple intraoperative spot fluoroscopic images demonstrate midfoot fusion involving the first, second, third tarsal-metatarsal joints. IMPRESSION: 1. Intraoperative left midfoot fusion. Electronically authenticated by: HUNG ARREDONDO Date: 2022-02-14 08:26[facility]08-26-2022 NotePROCEDURE: XR ANKLE LT MIN 3 V, [...] Electronically authenticated by: HUNG ARREDONDO Date: 2022-02-14 08:18[facility]08-26-2022 NotePROCEDURE: XR ANKLE LT MIN 3 V, [...] Electronically authenticated by: HUNG ARREDONDO Date: 2022-02-14 08:18[facility]06-16-2022 NotePROCEDURE: XR FOOT LT MIN 3 VIEWS [...] Electronically authenticated by: HUNG ARREDONDO Date: 2021-12-05 09:48[facility]11-10-2021 Evaluation note* Encounter Date Diagnosis Assessment Notes Treatment Notes Treatment Clinical Notes Apr, 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 Consider MRI or PM if not improving with PT [facility] Other 09-29-2021 Evaluation note* Encounter Date Diagnosis [...] if not seeing improvement after 2-3 days [place] [employer] Other Evaluation noteNo InformationNort [employer] Other Evaluation noteNo assessment information available [facility] Work Phone: Evaluation note* Diagnosis Onset Date Resolution Status Breast mass, right acute [facility] Work Phone: evaluation note* Diagnosis Onset Date Resolution Status Breast mass, right acute Breast mass, right acute [facility] Work Phone: evaluation note* Diagnosis Onset Date Resolution Status Arthritis of facet joint of cervical spine acute Cervical pain acute Chronic pain acute [facility] Work Phone: [employer] general Narrative - Reported* Type Description Date Medical History Anxiety and Depression Medical History Cardiomegaly Medical History alcohol abuse Medical History Benzodiazepine dependence Surgical History hysterectomy 2010 Surgical History appendectomy 2009 Surgical History tonsillectomy as child Hospitalization History [facility] 06/2012 Hospitalization History Pneumonia - [place] [facility] 01/2008 Hospitalization History [facility]OX [facility] 08/2018 [facility] Other Hisprwz general Narrative - Reported* Type Description Date Medical History Anxiety and Depression Medical History Cardiomegaly Medical History alcohol abuse Medical History Benzodiazepine dependence Surgical History hysterectomy 2010 Surgical History appendectomy 2009 Surgical History tonsillectomy as child Surgical History left foot surgery 2021 Hospitalization History [facility] 06/2012 Hospitalization History Pneumonia - [place] [facility] 01/2008 Hospitalization History [facility] 08/2018 [facility] Other [employer] general Narrative - Reported* Type Description Date Medical History Anxiety and Depression Medical History Cardiomegaly Medical History alcohol abuse Medical History Benzodiazepine dependence Medical History Arthritis Medical History osteoporosis Medical History chronic depression Surgical History hysterectomy 2009 Surgical History appendectomy 2009 Surgical History tonsillectomy as child Surgical History left foot surgery 2021 Hospitalization History Detox- [facility] 06/2012 [facility] P[facility] [place] Hospital[facility] 08/2018 Hospitalization History see above surg. hx. [facility] [employer] Other Summary Purpose Family History Relationship Condition Age at Onset Recorded Date/T chi father Diabetes mellitus Unknown sister Diabetes mellitus Unknown brother Diabetes mellitus Unknown Relationship Condition Age at Onset Recorded Date/T chi father Diabetes mellitus Unknown Relationship Condition Age at Onset Recorded Date/T chi father Diabetes mellitus Unknown father Unknown Diabetes mellitus Unknown Advance Directives Advance Directive Response Recorded Date/ Time Advance Directives No February 9:50am Advance Directive Response Recorded Date/ Time Advance Directives No February 10:50am Assessments No Assessments Information AvailableNo Assessments Information AvailableNo Assessments Information Available Reason for Referral Reason evaluate and treat Diagnosis 1 Cervical spondylosis (M47.812) Referral Organization [facility] urosurgery Referring Provider First Name Clovis Referring Provider Last Name Jaci Referring Provider Specialty Neurologica l Surgery Referred Organization [facility] Referred Provider Christin Mead Referred Address [address] [place],[address] Referred Provider Specialty Pain Medicin e Referral Priority Routine Reason 08/13/22 @ tremors , weakness - brain MRI [facility] Diagnosis 1 Intention tremor (G2 5.2) Diagnosis 2 Weakness (R53.1) Referral Organization [facility] Family Medicin e Yordy Referring Provider First Name Christin Referring Provider Last Name Anoop Referring Provider Specialty Family Prac mike Referred Organization [facility] Referred Provider Hung Seo Referred Address [address] [place], [place],[address] Referred Provider Specialty Neurology Referral Priority Routine [...] without myelopathy or radiculopathy (M47.812) Referral Organization [facility] Family Luz Scales Referring Provider First Name Christin Referring Provider Last Name Anoop Referring Provider Specialty Family Prac mike Referred Organization [facility] Referred Address [address] [place] [address] Referred Provider Specialty Physical The rapist Referral Priority Routine General Notes Doreen Bansal 10:54:55 AM > ORDERS NEED TO BE SIGNED BY DR GRULLON.Doreen Bansal 05/01/2021 11:09:47 AM > ORDER SIGNED BY DR GRULLON. FAXED TO [employer]. Chief Complaint and Reason for Visit Chief [...] Neck Pain Shoulder pain Shoulder pain Z98.890 Chief Complaint 10-14 Days Post Op Z98.890 4 Week Recheck (Post Op Sling Order Need neck pain Amb Documentation LEFT CERVICAL RFA C3 C4/DS Reason for Visit Arthritis of facet j oint of cervical spine Cervical pain Chronic pain Chief Complaint 4 Week Recheck (Post Op Sling Order Need neck pain Amb Documentation LEFT CERVICAL RFA C3 C4/DS Amb Documentation RIGHT CERVICAL FACET RFA C3 C4/DS Reason for Visit Arthritis of facet j oint of cervical spine Cervical pain Chronic pain Additional Source Comments INFORMATION SOURCE (unrecogn ized section and content) DATE CREATED AUTHOR 09/23/2018 [facility] DATE CREATED AUTHOR AUTHOR'S ORGANIZ ATION 10/27/2018 [facility] DATE CREATED AUTHOR AUTHOR'S ORGANIZ ATION 09/23/2022 [facility] DATE CREATED AUTHOR AUTHOR'S ORGANIZ ATION 06/24/2023 [facility] REASON FOR VISIT (unrecogniz ed section and content) BILATERAL KNEE PAIN, KNEELIN G IS THE WORST. PAIN PRESENT FOR MANY MONTHS. NO SWELLING. ON OCCASION HER KNEES WILL GIVE OUT. NO FALL/INJURY.[facility] SHER F/U, WENT TO [facility] ER 04/17 AFTER AN [...] MBB C3 C4 /VWpain meds not workingMed Erytwf4re Visit Post Op Left ShoulderPatient VMRecheck Left Shoulder Care Teams (unrecognized sec tion and content) Team Status: Inactive Member Role Status Dates Christin Grullon DO Primary Care Provider, Attending Provider Active Team Status: Active Member Role Status Dates Christin Grullon DO Primary Care Provider Active Team Status: Inactive Member Role Status Dates Christin Grullon DO Primary Care Provider Active Jose Itzkowitz , DO Attending Provider Active Team Status: Inactive Member Role Status Dates Christin Grullon , DO Primary Care Provider Active Brenda Hinkle ADVERTISING AGENCY MANAGER-C Attending Provider Active Team Status: Inactive Member Role Status Dates Christin Grullon DO Primary Care Provider Active Gwendolyn Barron , SELF SEALING FUEL TANK BUILDER-LABORATORY MILLER-C Attending Provider Active Team Status: Inactive Member [...] Isiah Purcell , DO Attending Provider Active Team Status: Inactive Member Role Status Dates Provider Conversion Attending Provider Active St art: June 23, 2023 End: June 23, 2023 Team Status: Inactive Member Role Status Dates Christin Grullon DO Primary Care Provider Active Start: June 23, 2023 End: June 23, 2023 Isiah Purcell , DO Attending Provider Active St art: June 23, 2023 End: June 23, 2023 Team Status: Inactive Member Role Status Dates Provider Conversion Attending Provider Active St art: July 20, 2023 End: July 20, 2023 Team Status: Inactive Member Role Status Dates Christin Grullon DO Primary Care Provider Active Start: August 27, 2023 End: August 27, 2023 Christin Mead MD Attending Provider Active Sta rt: August 27, 2023 End: August 27, 2023 Team Status: Active Member Role Status Dates Christin Grullon DO Primary Care Provider Active Start: September 14, 2023 Veronique Davidson CMA Attending Provider Active S tart: September 14, 2023 Team Status: Inactive Member Role Status Dates Christin Grullon DO Primary Care Provider Active Start: September 16, 2023 End: September 16, 2023 Christin Mead MD Attending Provider Active Sta rt: September 16, 2023 End: September 16, 2023 Team Status: Active Member Role Status Dates Christin Grullon DO Primary Care Provider Active Start: September 16, 2023 Christin Mead MD Attending Provider Active Sta rt: September 16, 2023 Team Status: Active Member Role Status Dates Christin Grullon DO Primary Care Provider Active Start: September 30, 2023 Veronique Davidson CMA Attending Provider Active S tart: September 30, 2023 Team Status: Inactive Member Role Status Dates Christin Grullon DO Primary Care Provider Active Start: October 14, 2023 End: October 14, 2023 Christin Mead MD Attending Provider Active Sta rt: October 14, 2023 End: October 14, 2023 Goals (unrecognized section and content) Goals may [...] BE BASED ON THE PRIMARY CLINICAL RECORDS. [facility] [employer] [facility]. provides no warranty or guarantee of the accuracy or completeness of information in this document.
== END 2023-11-11 09:47 | disposition home or self-care (01) ==
LOC: EC 09:46
PROVIDERS: PCP Family Medicine; Visit Provider Podiatrist Foot & Ankle Surgery
DX: M79.672 Pain in left foot (principal); Z98.890 Other specified postprocedural states
CPT/HCPCS: 73630

== ENCOUNTER 2023-12-14 12:47 | Outpatient (OUT) | payer OTHER, SELFPAY ==
--- NOTE | 2023-12-14 14:12 | PM.CN ---
Consult Note: HPI Data of Consult Patient: new to practice Consult date: 12/14/23 Requesting Physician: Damien Pastrana MD Primary Care Provider: CHRISTIN GRULLON Consult Narrative Reason for consult: left foot pain Narrative: 53yof who presents for evaluation. longstanding left foot pain, has had multiple surgeries on left foot. 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 endorses swelling, color change, temperature change, allodynia in left foot. has tried various conservative measures, including a series of provider directed home exercises for >6 weeks, without benefit. has tried tramadol, lyrica, gabapentin. cc:: CC: Damien Pastrana MD Review of Systems ROS Status of ROS 10 or more systems reviewed and unremarkable except as noted in history and below [facility] Medical History (Updated 12/14/23 @ 14:14 by Damien Pastrana MD) Dyspnea on exertion ?R06.09 - Other forms of dyspnea (ICD-10) Respiratory arrest (2007) ?R09.2 - Respiratory arrest (ICD-10) Pneumonia (2007) ?J18.9 - Pneumonia, unspecified organism (ICD-10) Osteopenia ?M85.80 - Other specified disorders of bone density and structure, unspecified site (ICD-10) Fibromyalgia ?M79.7 - Fibromyalgia (ICD-10) Neck pain ?M54.2 - Cervicalgia (ICD-10) Arthritis ?M19.90 - Unspecified osteoarthritis, unspecified site (ICD-10) Depression ?F32.A - Depression, unspecified (ICD-10) Anxiety ?F41.9 - Anxiety disorder, unspecified (ICD-10) Chronic obstructive pulmonary disease ?J44.9 - Chronic obstructive pulmonary disease, unspecified (ICD-10) Pseudarthrosis after fusion or arthrodesis ?M96.0 - Pseudarthrosis after fusion or arthrodesis (ICD-10) Surgical History History of tonsillectomy and adenoidectomy ?Z90.89 - Acquired absence of other organs (ICD-10) History of hysterectomy ?Z90.710 - Acquired absence of both cervix and uterus (ICD-10) H/O foot surgery ?Z98.890 - Other specified postprocedural states (ICD-10) H/O foot surgery ?Z98.890 - Other specified postprocedural states (ICD-10) Family History Other Family history of diabetes mellitus Social History Within the past year, how often did you have a drink containing alcohol: never Score interpretation: A score less than 3 is consistent with normal alcohol consumption. Smoking status: Current every day smoker What tobacco products do you use: cigarettes Packs per day: 1 Years smoked: 24 Smoking pack-years: 24.00 Non-prescribed substance use: denies use Highest level of school completed/degree received: high school graduate Meds Home Medications and Allergies Home Medications ?Medication ?Instructions ?Recorded ?Confirmed ?Type alendronate 70 mg tablet 70 mg PO QWEEK 11/30/22 03/07/23 History cholecalciferol (vitamin D3) 25 3,000 unit PO DAILY 11/30/22 03/07/23 History mcg (1,000 unit) capsule escitalopram oxalate 20 mg tablet 20 mg PO DAILY 11/30/22 03/07/23 History hydroxyzine pamoate 25 mg capsule 25 mg PO Q8H PRN anxiety 11/30/22 03/07/23 History meloxicam 15 mg tablet 15 mg PO DAILY 11/30/22 03/07/23 History pregabalin 100 mg capsule 100 mg PO BID 11/30/22 03/07/23 History trazodone 50 mg tablet 50 mg PO .hs 11/30/22 03/07/23 History bupropion HCl 150 mg 24 hr tablet, mg PO 03/07/23 History extended release diphenhydramine HCl 25 mg capsule 25 mg PO Q8H PRN headache #12 caps 03/07/23 Rx (Benadryl) methylprednisolone 4 mg tablets in See Rx Instructions .Route 03/07/23 Rx a dose pack (Medrol ([facility])) .COMPLEX #21 ea metoclopramide HCl 10 mg tablet 10 mg PO Q6H PRN nausea and 03/07/23 Rx (Reglan) vomiting #12 tabs pregabalin 150 mg capsule 150 mg PO Q12H 03/07/23 03/07/23 History Allergies Allergy/AdvReac Type Severity Reaction Status Date / Time Penicillins Allergy Severe Unknown Verified 12/26/22 08:18 Exam Narrative Exam Narrative: Psych-alert and oriented x 3.? Attentive and appropriate, constitutionally normal, displays normal mood and affect per situation.? There are no obvious deficits in memory, reasoning, or intellect. Examination of the left lower extremity reveals notable hyperpathia and allodynia.? Notable atrophy and diffuse weakness present in the extremity.? There is notable shiny skin with hair loss and abnormal hair growth denoting trophic changes presently.? Asymmetric color and temperature changes are present which denotes sudomotor changes.? Decreased range of motion and strength is noted in the extremity.? Coordination remains intact.? Gait remains non-antalgic. Assessment and Plan Assessment and Plan (1) Complex regional pain syndrome i of left lower limb: Plan 53yof who presents for evaluation. failed conservative measures, as noted. given symptoms and surgical history, suspect that she may have developed crps. discussed that this is likely lifelong condition that would need to be managed, but not cured. at this point, advised that she increase lyrica to 150mg tid. will trial cymbalta 60mg qhs. uds obtained. will provide short course of percocet 5mg bid prn to help with her son's upcoming wedding. also discussed that she would likely benefit from left lumbar sympathetic nerve block x2. she is in agreement. follow up after nerve block complete.
== END 2023-12-14 12:48 | disposition home or self-care (01) ==
PROVIDERS: PCP Family Medicine; Visit Provider Anesthesiology
DX: G90.522 Complex regional pain syndrome I of left lower limb (principal)
CPT/HCPCS: G0463

== ENCOUNTER 2024-02-01 06:59 | Day surgery (SDC) | payer OTHER, SELFPAY ==
--- OUTSIDE RECORDS SUMMARY | 2024-02-01 07:03 | XMS_ITS | CCD ---
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 06-01-2023 MCH (RBC) [Entitic mass] 30.3 pg 24.7-34.3 [facility] MCHC Auto (RBC) [Mass/Vol]Or dered By: Isiah Purcell on 06-01-2023 MCHC (RBC) [Mass/Vol] 34.1 g/dL 32.0-35.0 [facility] MCV Auto (RBC) [Entitic vol] Ordered By: Isiah Purcell on 06-01-2023 MCV (RBC) [Entitic vol] 88.8 fL 80-100 [facility] Monocytes Auto (Bld) [#/Vol] Ordered By: Isiah Purcell on 06-01-2023 Monocytes (Bld) [#/Vol] 0.6 10*3/uL 0.0-0.8 [facility] Monocytes/100 WBC Auto (Bld) Ordered By: Isiah Purcell on 06-01-2023 Monocytes/100 WBC (Bld) 8.7 % . [facility] Neutrophils Auto (Bld) [#/Vo l]Ordered By: Isiah Purcell on 06-01-2023 Neutrophils (Bld) [#/Vol] 5.0 10*3/uL 1.8-7.7 [facility] Neutrophils/100 WBC Auto (Bl d)Ordered By: Isiah Purcell on 06-01-2023 Neutrophils/100 WBC (Bld) 67.8 % . [facility] No Panel InformationOrdered By: Isiah Purcell on 06-01-2023 Estimated GFR (CKD-EPI) > 60.0 mL/Min [facility] Creatinine Clearance (Chem N/A [facility] Nucleated erythrocytes [Pres ence] in Blood by Automated countOrdered By: Isiah Purcell on 06-01-2023 Nucleated RBC Auto Ql (Bld) 0.0 /100{WBC} 0-0.5 [facility] Platelet mean volume Auto (B ld) [Entitic vol]Ordered By: Isiah Purcell on 06-01-2023 Platelet mean volume (Bld) [Entitic vol] 8.2 fL 6.3-10.7 [facility] Platelets Auto (Bld) [#/Vol] Ordered By: Isiah Purcell on 06-01-2023 Platelets (Bld) [#/Vol] 377 10*3/uL 150-450 [facility] Potassium [Moles/volume] in Serum or PlasmaOrdered By: Isiah Purcell on 06-01-2023 Potassium [Moles/Vol] 4.2 mmol/L 3.5-5.1 [facility] Protein [Mass/volume] in Ser um or PlasmaOrdered By: Isiah Purcell on 06-01-2023 Protein [Mass/Vol] 6.6 g/dL 6.4-8.9 [facility] RBC Auto (Bld) [#/Vol]Ordere d By: Isiah Purcell on 06-01-2023 RBC (Bld) [#/Vol] 4.52 10*6/uL 3.60-5.00 [facility] Serum or plasma albumin/glob ulin mass ratioOrdered By: Isiah Purcell on 06-01-2023 Albumin/Globulin [Mass ratio] 1.8 {ratio} [facility] Serum or plasma anion gap de terminationOrdered By: Isiah Purcell on 06-01-2023 Anion gap [Moles/Vol] 10.2 mmol/L 6.0-15.0 [facility] Sodium [Moles/volume] in Ser um or PlasmaOrdered By: Isiah Purcell on 06-01-2023 Sodium [Moles/Vol] 140 mmol/L 136-145 [facility] Urea nitrogen [Mass/volume] in Serum or PlasmaOrdered By: Isiah Purcell on 06-01-2023 Urea nitrogen [Mass/Vol] 7 mg/dL 7-25 [facility] WBC Auto (Bld) [#/Vol]Ordere d By: Isiah Purcell on 06-01-2023 WBC (Bld) [#/Vol] 7.3 10*3/uL 3.8-11.6 [facility] MR shoulder LT wo conon 03-22 [place] [address] MRI Report Signed Patient: Karen Solis MR#: [id number] 01 : 1970 Acct:[id number] Age/Sex: 52 / F ADM Date: 04/02/23 [facility]: Type: [facility] CLI Attending Dr: Pratik Cross DO Copies to: [...] Rian Royal M.D.04/02/2023 4:38 PM Dictation Location: [place] [address] Transcribed By: [facility] 04/02/23 163 Dictated By: Rian Royal II, MD 04/02/23 163 Signed By: 04/02/231637 Normal [facility] XR thoracic spine 3V*on XR thoracic spine 3V* [facility] [place] [address] XRay Report Signed Patient: Karen Solis MR#: [id number] 01 : 1970 Acct:[id number] Age/Sex: 52 / F ADM Date: 02/24/23 Loc: ICXD Room: Type: [facility] CLI Attending Dr: Gwendolyn MULLER Copies to: [...] Perla Mcnally M.D.02/24/2023 4:32 PM Dictation Location: [place] [address] Transcribed By: [facility] 02/24/23 1632 Dictated By: Perla Mcnally MD 02/24/23 1630 Signed By: 02/24/23 1632 [facility] XR pre/post mri xrayon 09-24 XR pre/post mri xray [facility] [address] [place] [address] MRI Report Signed Patient: Karen Solis MR#: [id number] 01 : 1970 Acct:[id number] Age/Sex: 52 / F ADM Date: 09/24/22 [facility] Room: Type: [facility] CLI Attending Dr: Brenda JORDANC Copies to: RONAL Collazo Ordering Provider: RONAL Collazo Date of Service: 09/24/22 MR/MR cervical spine wo con: M54.12 ([id number]) XR/XR pre/post mri xray: C-SPINE MRI cervical [...] M.D.09/24/2022 3:22 PM Dictation Location: [place] [address] Transcribed By: [facility] 09/24/22 1522 Dictated By: Umesh Perez DO 09/24/22 1517 Signed By: 09/24/22 1522 [facility] MR head/brain wo conon 07-30 MR head/brain wo con [facility] [address] [place], [place] [id number] MRI Report Signed Patient: Karen Solis MR#: [id number] 01 : 1970 Acct:[id number] Age/Sex: 52 / F ADM Date: 07/30/22 Loc: [facility]CMR Room: Type: [facility] CLI Attending Dr: Christin Grullon DO Copies to: [...] Perla Mcnally M.D.07/30/2022 4:55 PM Dictation Location: [place] [address] Transcribed By: ANJEL 07/30/22 1655 Dictated By: Perla Mcnally MD 07/30/22 1647 Signed By: 07/30/22 1655 [facility] MR head/brain wo con [facility] [employer] Other MR head/brain wo con [facility] [employer] Other MR head/brain wo con [address] [facility] [employer] Other MR head/brain wo con [facility] [address] [employer] Other MR head/brain wo con MRI Report [employer] Other MR head/brain wo con Signed [employer] Other MR head/brain wo con Patient: Karen Solis MR#: [id number] [employer] Other MR head/brain wo con 01 [employer] Other MR head/brain wo con : 1970 Acct:[id number] [employer] Other MR head/brain wo con Age/Sex: 52 / F ADM Date: 07/30/22 [employer] Other MR head/brain wo con Loc: [facility]R Room: Type: [facility] [employer] Other MR head/brain wo con Attending Dr: Christin Grullon DO [employer] Other MR head/brain wo con Copies to: Christin Grullon DO [employer] Other MR head/brain wo con Ordering Provider: Christin Grullon DO [employer] Other MR head/brain wo con Date of Service: 07/30/22 [employer] Other MR head/brain wo con MR/MR head/brain wo con: Generalized headaches;Intention tremor;Pain in [employer] Other MR head/brain wo con unspecified l [employer] Other MR head/brain wo con EXAMINATION: MRI OF THE BRAIN WITHOUT CONTRAST [employer] Other MR head/brain wo con CLINICAL HISTORY: Headache and intention tremor for the past few months, mostly on the left. [employer] Other MR head/brain wo con COMPARISON: CT 2021 [employer] Other MR head/brain wo con TECHNIQUE: Multiecho, multiplanar imaging of the brain was performed without enhancement. [employer] Other MR head/brain wo con The ventricles are normal in size and position. A small nonspecific focus of increased T2 and FLAIR [employer] Other MR head/brain wo con signal is present within the subcortical white matter of the right parietal lobe (axial image 15). [employer] Other MR head/brain wo con There is also very subtle increased signal within the suzie. This is nonspecific and could be [employer] Other MR head/brain wo con minimal microvascular disease. Demyelination is thought less likely given the distribution. A [employer] Other MR head/brain wo con prominent perivascular space is noted at the inferior basal ganglia region on the left. There are [employer] Other MR head/brain wo con no additional areas of abnormal signal intensity within the supra- or infratentorial brain. No [employer] Other MR head/brain wo con restricted diffusion is identified to suggest a recent ischemic event. There are no extra-axial [employer] Other MR head/brain wo con collections or mass effect. The imaged paranasal sinuses and mastoid air cells are clear. [employer] Other MR head/brain wo con MR/MR head/brain wo con [employer] Other MR head/brain wo con IMPRESSION: Nor [email or web address] Other MR head/brain wo con MINIMAL NONSPECIFIC WHITE MATTER CHANGE, DESCRIBED. [employer] Other MR head/brain wo con NO ACUTE INTRACRANIAL FINDINGS [employer] Other MR head/brain wo con Impression dictated by: Perla Mcnally M.D.07/30/2022 4:55 PM [employer] Other MR head/brain wo con Dictation Location: [facility]10 [employer] Other MR head/brain wo con Transcribed By: PWS 07/30/22 1655 [employer] Other MR head/brain wo con Dictated By: Perla Mcnally MD 07/30/22 1647 [employer] Other MR head/brain wo con Signed By: Thierno [email or web address] Other MR head/brain wo con 07/30/22 1655 [facility] [email or web address] Other POINT OF CARE GLUCOSEon 06-24 Glucose [Mass/Vol] 94 mg/dL Normal 74-106 [facility] Comment on above: Performed By: #### P OCGLUC #### [facility] [address] [place], [place] [address] Dr. Alex Guy Glucose [Mass/Vol] 92 mg/dL Normal 74-106 [facility] Comment on above: Performed By: #### P OCGLUC ####[facility] [address] [place], [place] [address]LaDr. Alex Guy XR FOOT LT 2Von 07-21-2022 [...] ROXANNA NIELSEN Date: 2022-07-21 09:40 Normal [facility] Covid-19 PCR (CVDTB)on 06-23 SARS-CoV-2 (COVID-19) RNA CATALINA+probe Ql (Unsp spec) Not detected Normal NOT DETECTED [facility] Comment on above: Result Comment: This test is not yet approved or cleared by the [place] FDA. When there are no FDA-approved or cleared tests available, and other criteria are met, FDA can make tests available under an emergency access mechanism called an Emergency Use Authorization (EUA). The EUA for this test is supported by the [place] of Health and Human Service's (HHS's) declaration [...] consistent with SARS-CoV-2. Performed By: #### C [facility] #### [facility] [address] [place] [address] Dr. Alex Sandhu 07-14-2022 L Specimen: [id number] Received: 07/14/22 Status: GENNY Valadez Num: [id number] Spec Type: Surgical Subm Dr: Rian Royal II, MD Tissues: A BREAST CORE NO CALCS (RT BREAST TISSUE) Procedures: HE/4, Gross/Micro L4, CALPONIN Age/ Patient Sex Location Account Attending Physician Karen Solis 52/F AC [id number] Jose Vincent DO SPEC NUM: [id number] RECD: 07/14/22 STATUS: GENNY WEINSTEINAmairani NUM: [id number] LESTER: 07/14/221139 [facility] DR: Rian Royal II, MD ENTERED: 07/14/[address] [facility] [address]: DO JOE Martini TYPE: Surgical DEPT: S ORDERED: HE/4, Gross/Micro [...] Cannot calculate Specimen: [id number] Received: 07/14/22 Status: GENNY Valadez Num: [id number] Spec Type: Surgical Subm Dr: Rian Royal II, MD Tissues: A BREAST CORE NO CALCS (RT BREAST TISSUE) Procedures: PALLAVI/Apryl, Gross/Micro CAYETANO Arango Patient: SolisKaren A [id number] (Continued) Specimen: [id number] Received: 07/14/22 (Continued) Signed (signatur e on file) Tenisha Banks MD 07/15/22 1623 Specimen: S2 Received: 07/14/22 Status: GENNY Valadez Num: [id number] Spec Type: Surgical Subm Dr: Rian Royal II, MD Tissues: A BREAST CORE NO CALCS (RT BREAST TISSUE) Procedures: HE/4, Gross/Micro L4, CALPONIN Patient: Karen Solis [id number] (Continued) Specimen: S2 Received: 07/14/22 (Continued) Microscopic Description Two glass slides with H E stained material have been examined. The microscopic findings support the above pathologic diagnosis. CPT Codes 65759 Specimen: [id number] Received: 07/14/22 Status: GENNY Weinsteinamairani Num: [id number] Spec Type: Surgical Subm Dr: Rian Royal II, MD Tissues: A BREAST CORE NO CALCS (RT BREAST TISSUE) Procedures: Claudio LYNN/Chiquis L4, CALPONIN Patient: Karen Solis [id number] (Continued) Signed (signatur e on file) Tenisha Banks MD 07/15/22 8926 Normal [facility] US breast ndl core biopsy RT on 07-14-2022 breast ndl core biopsy RT [facility] [place] [address] Mammography Report Signed with Addenda Patient: Karen Solis MR#: [id number] 01 : 1970 Acct:[id number] Age/Sex: 52 / F ADM Date: 07/14/22 Loc: [facility] Room: Type: [facility] Attending Dr: Jose Vincent DO Copies to: DO Christin Martini DO Ordering Provider: Jose Vincent DO Date of Service: 07/14/22 US/US breast ndl core biopsy RT: BREAST LESION ([id number]) MM/MM post biopsy RT w/CAD: POST U/S BX WITH CLIP ADDENDUM 1 Final pathology: Benign fibrofatty breast tissue Negative for atypia or malignancy. Recommendation: Follow-up with diagnostic right breast mammogram in 6 months is recommended. Impression dictated by: Rian Royal M.D.07/16/2022 7:40 AM Dictation Location: [facility] Addendum Dictated By: Rian Royal II, MD [...] of the right breast was performed by product/device technologist as well as myself. At the [...] o'clock position were performed using a 12-gauge [employer] vacuum-assisted core biopsy needle under ultrasound guidance. [...] Rian Royal M.D.07/14/2022 11:58 AM Dictation Location: [facility] Transcribed By: [facility] 07/14/22 1158 Dictated By: Rian Royal II, MD 07/14/22 1154 Signed By: 07/14/22 1158 [facility] PROF CHEM 8 (BAS METB)on Anion gap [Moles/Vol] 9.3 mmol/L Normal [facility] Comment on above: Performed By: #### B MP ####[facility] [address] [place] [address]Dr. Alex Guy Calcium [Mass/Vol] 9.5 mg/dL Normal 8.5-10.1 [facility] Comment on above: Performed By: #### B MP ####[facility] [address] [place] [address]Dr. Alex Guy Chloride [Moles/Vol] 104 mmol/L Normal 98-107 [facility] Comment on above: Performed By: #### B MP ####[facility] [address] [place] [address]Dr. Alex Guy CO2 [Moles/Vol] 32.4 mmol/L Critically high 21.0-32.0 [facility] Comment on above: Performed By: #### B MP ####[facility] [address] [place] [address]Dr. Alex Guy Creatinine [Mass/Vol] 0.82 mg/dL Normal 0.55-1.02 [facility] Comment on above: Performed By: #### B MP ####[facility] [address] [place] [address]Dr. Alex Guy EGFR-AF [place] >60 Normal >=60 [facility] Comment on above: Performed By: #### B MP ####[facility] [address] [place] [address]Dr. Alex Guy EGFR-NON AF [place] >60 Normal >=60 [facility] Comment on above: Performed By: #### B MP ####[facility] [address] [place] [address]Dr. Alex Guy Glucose [Mass/Vol] 89 mg/dL Normal 74-106 [facility] Comment on above: Performed By: #### B MP ####[facility] [address] [place] [address]Dr. Alex Guy Potassium [Moles/Vol] 4.7 mmol/L Normal 3.5-5.1 [facility] Comment on above: Performed By: #### B MP ####[facility] [address] [place] [address]Dr. Alex Guy Sodium [Moles/Vol] 141 mmol/L Normal 136-145 [facility] Comment on above: Performed By: #### B MP ####[facility] [address] [place] [address]Dr. Alex Guy Urea nitrogen [Mass/Vol] 7.0 mg/dL Normal 7.0-18.0 [facility] Comment on above: Performed By: #### B MP ####[facility] [address] [place] [address]Dr. Alex Guy Urea nitrogen/Creatinine [Mass ratio] 8.5 mg/mg Normal [facility] Comment on above: Performed By: #### B MP ####[facility] [address] [place] [address]Dr. Alex Guy CT FOOT LT WO CONon [...] by: STERLING THOMAS Date: 2022-07-08 07:21 Normal [facility] US breast RT limitedon 07-08 US breast RT limited [facility] [address] [place] [address] Mammography Report Signed Patient: Karen Solis MR#: [id number] : 1970 Acct:[id number] Age/Sex: 52 / F ADM Date: 07/08/22 Loc: [place] Room: Type: [facility] Attending Dr: Christin Grullon DO Copies to: Christin Grullon DO Ordering Provider: Christin Grullon DO Date of Service: 07/08/22 MM/MM diagnostic mammo RT w/CAD: Abnormal mammogram of right breast ([id number]) US/US breast RT limited: Abnormal mammogram of [...] Perla Mcnally M.D.07/08/2022 4:04 PM Dictation Location: [facility] Transcribed By: ANJEL 07/08/22 1604 Dictated By: Perla Mcnally MD 07/08/22 1442 Signed By: 07/08/22 1604 Normal [facility] US breast RT limited [email or web address] Other US breast RT limited [facility] Main [facility] [email or web address] Other US breast RT limited [address] [place] [address] [employer] [place] [address] [employer] [facility] [email or web address] Other US breast RT limited Mammography Report [employer] Other US breast RT limited Signed [facility] [email or web address] Other US breast RT limited Patient: Karen Solis MR#: [id number] [employer] Other US breast RT limited [facility] [email or web address] Other US breast RT limited : 1970 Acct:[id number] [employer] Other US breast RT limited Age/Sex: 52 / F ADM Date: 07/08/22 [employer] Other US breast RT limited Loc: [place] Room: Type: [facility] [employer] Other US breast RT limited Attending Dr: Christin Grullon DO [employer] Other US breast RT limited Copies to: Christin Grullon DO [employer] Other US breast RT limited Ordering Provider: Christin Grullon DO [employer] Other US breast RT limited Date of Service: 07/08/22 [employer] Other US breast RT limited MM/MM diagnostic mammo RT w/CAD: Abnormal mammogram of right breast [employer] Other US breast RT limited ([id number]) US/US breast RT limited: Abnormal mammogram of right breast [employer] Other US breast RT limited CLINICAL DATA: Follow-up right breast asymmetry. [employer] Other US breast RT limited RIGHT DIAGNOSTIC MAMMOGRAMS - FULL FIELD DIGITAL WITH TOMOSYNTHESIS AND CAD [employer] Other US breast RT limited Tomosynthesis spot compression true lateral, craniocaudal and mediolateral oblique views of the [employer] Other US breast RT limited right breast were obtained using low-dose digital technique. Comparison is made to the prior study [employer] Other [employer] breast RT limited from June 19, 2022. This examination was reviewed with the aid of CAD. [employer] Other US breast RT limited There are scattered fibroglandular densities. There is still subtle, ill-defined asymmetry at the [employer] Other US breast RT limited central, slightly inferior breast on today's views. There are no other suspicious masses, typically [employer] Other US breast RT limited malignant calcifications or architectural distortion. [employer] Other US breast RT limited LIMITED RIGHT BREAST ULTRASOUND [employer] Other US breast RT limited the 4 to 5:00 position in the retroareolar region, there is a subtle hypoechoic area which has [employer] Other US breast RT limited slightly irregular margination. It measures approximately 3 x 3 x 4 mm in size. This might correlate [employer] Other US breast RT limited with the mammographic asymmetry. At the 6 to 7:00 position, 4 cm from the nipple there is a possible [employer] Other US breast RT limited subtle 3 x 2 x 4 mm hypoechoic nodular area within a band of tissue extending from middle depth [employer] Other US breast RT limited toward the chest wall. There are multiple adjacent vessels. If real, this is probably incidental. [employer] Other US breast RT limited MM/MM diagnostic mammo RT w/CAD [employer] Other US breast RT limited IMPRESSION: Nor [employer] Other US breast RT limited PERSISTENT SUBTLE ASYMMETRY WITH TINY INDETERMINANT HYPODENSITY ON ULTRASOUND. FINDINGS WERE [employer] Other US breast RT limited DISCUSSED WITH THE PATIENT WHO WOULD PREFER ULTRASOUND-GUIDED BIOPSY OVER OBSERVATION. [employer] Other US breast RT limited SECOND POTENTIAL INCIDENTAL TINY HYPODENSITY AT THE LOWER OUTER QUADRANT. ULTRASOUND FOLLOW-UP IN 6 [employer] Other US breast RT limited MONTHS IS SUGGESTED. [employer] Other US breast RT limited RESULT CODE: 4a [employer] Other US breast RT limited Suspicious Abnormality - Biopsy Low Suspicion [employer] Other US breast RT limited DENSITY CODE: 2 (approximately 25-50% glandular) [employer] Other US breast RT limited FOLLOW UP: BIO [employer] Other US breast RT limited The false-negative rate of mammography is approximately 10-percent. [employer] Other US breast RT limited Management of a palpable abnormality must be based on clinical grounds. [employer] Other US breast RT limited Patient was entered into a reminder system with a target due date for the next mammogram. [employer] Other US breast RT limited Impression dictated by: Perla Mcnally M.D.07/08/2022 4:04 PM [employer] Other US breast RT limited Dictation Location: [facility] [employer] Other US breast RT limited Transcribed By: ANJEL 07/08/22 1604 [employer] Other US breast RT limited Dictated By: Perla Mcnally MD 07/08/22 [facility] [employer] Other US breast RT limited Signed By: [employer] Other US breast RT limited 07/08/22 1604 [employer] Other MM screening mammo BI w/CADo n 06-30-2022 MM screening mammo BI w/CAD [facility] [address] [place] [id number] Mammography Report Signed Patient: Karen Solis MR#: [id number] 01 : 1970 Acct:[id number] Age/Sex: 52 / F ADM Date: 06/19/22 Loc: [place] Room: Type: [facility] Attending Dr: Christin Grullon DO [...] Hannah Jr., D.O.06/30/2022 10:03 AM Dictation Location: [facility] Transcribed By: ANJEL 06/30/22 1003 Dictated By: Jeff Hannah Jr, DO 06/30/22 1001 Signed By: 06/30/22 1003 Normal [facility] Albumin [Mass/volume] in Ser um or PlasmaOrdered By: Christin Grullon on 05-19-2022 Albumin [Mass/Vol] 4.6 g/dL 3.2-5.5 [facility] C reactive protein [Mass/vol ume] in Serum or PlasmaOrdered By: Christin Grullon on 05-19-2022 CRP [Mass/Vol] 0.5 mg/dL 0.0-1.0 [facility] Creatinine and Glomerular fi ltration rate.predicted panel (S/P/Bld)Ordered By: Christin Grullon on 05-19-2022 Creatinine [Mass/Vol] 0.85 mg/dL 0.44-1.03 [facility] Erythrocyte distribution wid th Auto (RBC) [Ratio]Ordered By: Christin Grullon on 05-19-2022 Erythrocyte distribution width (RBC) [Ratio] 13.6 % 11.9-15.3 [facility] Erythrocyte sedimentation ra te by Photometric methodOrdered By: Christin Grullon on 05-19-2022 ESR Photometric method (Bld) [Velocity] 24 mm/hr 0- [facility] Estimated glomerular filtrat ion rate (GFR) non- AmericanOrdered By: Christin Grullon on 05-19-2022 GFR/1.73 sq M.predicted among non-blacks MDRD (S/P/Bld) [Vol rate/Area] > 60 mL/Min [facility] Globulin Calc (S) [Mass/Vol] Ordered By: Christin Grullon on 05-19-2022 Globulin (S) [Mass/Vol] 2.5 g/dL F [facility] Hematocrit Auto (Bld) [Volum e fraction]Ordered By: Christin Grullon on 05-19-2022 Hematocrit (Bld) [Volume fraction] 42.6 % 34.0-46.4 [facility] Hemoglobin [Mass/volume] in BloodOrdered By: Christin Grullon on 05-19-2022 Hemoglobin (Bld) [Mass/Vol] 14.1 g/dL 11.8-15.4 [facility] MCH Auto (RBC) [Entitic mass ]Ordered By: Christin Grullon on 05-19-2022 MCH (RBC) [Entitic mass] 29.5 pg 24.7-34.3 [facility] MCHC Auto (RBC) [Mass/Vol]Or dered By: Christin Grullon on 05-19-2022 MCHC (RBC) [Mass/Vol] 33.0 g/dL 32.0-35.0 [facility] MCV Auto (RBC) [Entitic vol] Ordered By: Christin Grullon on 05-19-2022 MCV (RBC) [Entitic vol] 89.3 fL 80-100 F [facility] No Panel InformationOrdered By: Christin Grullon on 05-19-2022 Estimated GFR () > 60 mL/Min [facility] Comment on above: GFR estimated refere nce range: According to KDOQI guidelines, <60 ml/min/1.73m2 is sufficient to diagnose a patient with chronic kidney disease. Pharmacy Creatinine Clearance (Chem N/A [facility] Platelet mean volume Auto (B ld) [Entitic vol]Ordered By: Christin Grullon on 05-19-2022 Platelet mean volume (Bld) [Entitic vol] 8.5 fL 6.3-10.7 [facility] Platelets Auto (Bld) [#/Vol] Ordered By: Christin Grullon on 05-19-2022 Platelets (Bld) [#/Vol] 388 10*3/uL 150-450 [facility] Protein [Mass/volume] in Ser um or PlasmaOrdered By: Christin Grullon on 05-19-2022 Protein [Mass/Vol] 7.1 g/dL 6.1-7.9 [facility] RBC Auto (Bld) [#/Vol]Ordere d By: Christin Grullon on 05-19-2022 RBC (Bld) [#/Vol] 4.77 10*6/uL 3.60-5.00 [facility] Serum or plasma alanine martinez otransferase measurement without P-5'-P (enzymatic activiOrdered By: Christin Grullon on 05-19-2022 ALT No additional P-5'-P [Catalytic activity/Vol] 9 U/L 10-60 [facility] Serum or plasma albumin/glob ulin mass ratioOrdered By: Christin Grullon on 05-19-2022 Albumin/Globulin [Mass ratio] 1.8 {ratio} [facility] Serum or plasma alkaline cooper sphatase measurement (enzymatic activity/volume)Ordered By: Christin Grullon on 05-19-2022 ALP [Catalytic activity/Vol] 98 U/L 32-92 [facility] Serum or plasma anion gap de terminationOrdered By: Christin Grullon on 05-19-2022 Anion gap [Moles/Vol] 13.8 mmol/L 6.0-15.0 [facility] Serum or plasma aspartate am inotransferase measurement (enzymatic activity/volume)Ordered By: Christin Grullon on 05-19-2022 AST [Catalytic activity/Vol] 16 U/L 10-42 [facility] Serum or plasma calcium abhijit urement (mass/volume)Ordered By: Christin Grullon on 05-19-2022 Calcium [Mass/Vol] 9.9 mg/dL 8.2-10.2 [facility] Serum or plasma chloride brandon surement (moles/volume)Ordered By: Christin Grullon on 05-19-2022 Chloride [Moles/Vol] 101 mmol/L 95-114 [facility] Serum or plasma cyclic adeno sine monophosphate measurement (moles/volume)Ordered By: Christin Grullon on 05-19-2022 Adenosine monophosphate.cyclic [Moles/Vol] 4 units 0-19 [facility] Comment on above: Negative <20 Weak po sitive 20 - 39 Moderate positive 40 - 59 Strong positive >59Performed at: BN - [facility] [address] [id number] Director: Lena Evans MD, Phone: [phone] Serum or plasma glucose abhijit urement (mass/volume)Ordered By: Christin Grullon on 05-19-2022 Glucose [Mass/Vol] 81 mg/dL 70-100 [facility] Comment on above: ADA recommended refe rence rangeRandom Glucose Reference Range is dependent on time and content of last meal. Glucose of more than 200 mg/dL in a nonstressed, ambulatory subject supports the diagnosis of Diabetes Mellitus. Serum or plasma potassium me asurement (moles/volume)Ordered By: Christin Grullon on 05-19-2022 Potassium [Moles/Vol] 4.6 mmol/L 3.5-5.1 [facility] Serum or plasma rheumatoid f actor measurement (units/volume)Ordered By: Christin Grullon on 05-19-2022 Rheumatoid factor Qn [IU]/mL <14.0 [facility] Comment on above: Performed at: [facility] [address] [id number] Director: Primitivo Raygoza PhD, Phone: [phone] Serum or plasma sodium measu rement (moles/volume)Ordered By: Christin Grullon on 05-19-2022 Sodium [Moles/Vol] 138 mmol/L 136-146 [facility] Serum or plasma total biliru bin measurement (mass/volume)Ordered By: Christin Grullon on 05-19-2022 Bilirubin [Mass/Vol] 0.4 mg/dL 0.3-1.2 [facility] Serum or plasma total carbon dioxide measurement (moles/volume)Ordered By: Christin Grullon on 05-19-2022 CO2 [Moles/Vol] 27.8 mmol/L 22.0-30.0 [facility] Serum or plasma urea nitroge n measurement (mass/volume)Ordered By: Christin Grullon on 05-19-2022 Urea nitrogen [Mass/Vol] 8 mg/dL - [facility] WBC Auto (Bld) [#/Vol]Ordere d By: Christin Grullon on 05-19-2022 WBC (Bld) [#/Vol] 7.1 10*3/uL 3.8-11.6 [facility] XR knee standing BIon 2021 XR knee standing BI [email or web address] Other XR knee standing BI [facility] [employer] [facility] [email or web address] Other XR knee standing BI [address] [place] [address] inmobly [facility] [email or web address] [place] [address] [employer] Other XR knee standing BI XRay Report [facility] [email or web address] Other XR knee standing BI Signed [employer] Other XR knee standing BI Patient: Karen Solis MR#: [id number] [email or web address] Other XR knee standing BI [employer] Other XR knee standing BI : 1970 Acct:[id number] [employer] Other XR knee standing BI Age/Sex: 52 / F ADM Date: 05/19/22 [employer] Other XR knee standing BI Loc: [facility] Room: Type: [facility] [employer] Other XR knee standing BI Attending Dr: Christin Grullon DO [employer] Other XR knee standing BI Copies to: Christin Grullon DO [employer] Other XR knee standing BI Ordering Provider: Christin Grullon DO [employer] Other XR knee standing BI Date of Service: 05/19/22 [employer] Other XR knee standing BI XR/XR shoulder LT min 2V*: Pain in joint, multiple sites;Pain in left [employer] Other XR knee standing BI shoulder [employer] Other XR knee standing BI ([id number]) XR/XR knee standing BI: Pain in joint, multiple sites;Pain in right knee;Pain in lef [employer] Other XR knee standing BI LEFT SHOULDER - - 3 views bilateral knee series, one view each [employer] Other XR knee standing BI CLINICAL HISTORY: Frozen left shoulder for 4 months. Bilateral knee pain left greater than right [employer] Other XR knee standing BI with standing. [employer] Other XR knee standing BI COMPARISON: Knee series 01/15/2021 [employer] Other XR knee standing BI FINDINGS: [employer] Other XR knee standing BI Left shoulder: No acute bony process or significant degenerative change. [employer] Other XR knee standing BI Knee series: No acute bony process or significant degenerative change. [employer] Other XR knee standing BI XR/XR shoulder LT min 2V* [employer] Other XR knee standing BI IMPRESSION: [email or web address] Other XR knee standing BI NO ACUTE BONY PROCESS OR SIGNIFICANT DEGENERATIVE CHANGE INVOLVING THE KNEES OR LEFT SHOULDER. [employer] Other XR knee standing BI Impression dictated by: Jeff Hannah Jr., D.OGanga05/19/2022 3:54 PM [employer] Other XR knee standing BI Dictation Location: [place] [address] [employer] Other XR knee standing BI Transcribed By: PWS 05/19/22 155 [employer] Other XR knee standing BI Dictated By: Jeff Hannah Jr, DO 05/19/22 [facility] [employer] Other XR knee standing BI Signed By: [employer] Other XR knee standing BI 05/19/22 1554 No [email or web address] Other POINT OF CARE GLUCOSEon 01-21 Glucose [Mass/Vol] 126 mg/dL Critically high 74-106 T [facility] Comment on above: Performed By: #### P OCGLUC #### [facility] [address] [address] [address] Alex Guy Covid-19 PCR [facility]on 01-21 SARS-CoV-2 (COVID-19) RNA CATALINA+probe Ql (Unsp spec) Not detected Normal NOT DETECTED [facility] Comment on above: Result Comment: This test is not yet approved or cleared by the [place] FDA. When there are no FDA-approved or cleared tests available, and other criteria are met, FDA can make tests available under an emergency access mechanism called an Emergency Use Authorization (EUA). The EUA for this test is supported by the Exhauster of Health and Human Service's (HHS's) declaration [...] consistent with SARS-CoV-2. Performed By: #### [facility] #### [facility] [address] [address] [address] Alex Guy XR CHEST 2 Von [...] HUNG ARREDONDO Date: 2022-02-04 07:41 Normal [facility] PROF CHEM 8 (BAS METB)on Anion gap [Moles/Vol] 10.7 mmol/L Normal [facility] Comment on above: Performed By: #### B MP ####[facility] [address] [address]DrGanga Guy Calcium [Mass/Vol] 9.3 mg/dL Normal 8.5-10.1 [facility] Comment on above: Performed By: #### B MP ####[facility] [address] [place] [address] [address]DrGanga Guy Chloride [Moles/Vol] 101 mmol/L Normal 98-107 [facility] Comment on above: Performed By: #### B MP ####[facility] [address] [address]DrGanga Guy CO2 [Moles/Vol] 30.3 mmol/L Normal 21.0-32.[address] [facility] Comment on above: Performed By: #### B MP ####[facility] [address] [id number]. Alex Guy Creatinine [Mass/Vol] 0.91 mg/dL Normal 0.55-1.02 [facility] Comment on above: Performed By: #### B MP ####[facility] [address] [place] [address] [id number]. Alex Guy EGFR-AF [place] >60 Normal >=60 [facility] Comment on above: Performed By: #### B MP ####[facility] [address] [place] [id number]. Alex Guy EGFR-NON AF [place] >60 Normal >=60 [facility] Comment on above: Performed By: #### B MP ####[facility] [address] [place], [place] [address]Dr. Alex Guy Glucose [Mass/Vol] 84 mg/dL Normal 74-106 [facility] Comment on above: Performed By: #### B MP ####[facility] [address] [place], [place] [address]Dr. Alex Guy Potassium [Moles/Vol] 5.0 mmol/L Normal 3.5-5.1 [facility] Comment on above: Performed By: #### B MP ####[facility] [address] [place], [place] [address]Dr. Alex Guy Sodium [Moles/Vol] 137 mmol/L Normal 136-145 [facility] Comment on above: Performed By: #### B MP ####[facility] [address] [place], [place] [address]Dr. Alex Guy Urea nitrogen [Mass/Vol] 8.0 mg/dL Normal 7.0-18.0 [facility] Comment on above: Performed By: #### B MP ####[facility] [address] [place], [place] [address]Dr. Alex Guy Urea nitrogen/Creatinine [Mass ratio] 8.8 mg/mg Normal [facility] Comment on above: Performed By: #### B MP ####[facility] [address] [place], [place] [address]Dr. Alex Guy CT FOOT LT WO CONon [...] by: HUNG ARREDONDO Date: 2021-12-27 18:04 Normal [facility] PROGRESSon 10-19-2018 Protein mass conc HNO ID: [id number] Author: Lian Aparicio Service: ? Author Type: Physician Type: Progress Notes Filed: 10/19/2018 9:59 PM Note Text: [facility] - General Progress Note KAREN SOLIS : 1970 AGE: 48 SEX: F CSN: [id number] [facility]: YR LOCATION: [facility] ATTENDING PHYSICIAN: Bill Patten M.D. DATE OF [...] Psych Unit. Lian Aparicio M.D. Internal Medicine JOYNER:[id number] [facility] RPRon 08-31-2018 Reagin Ab RPR Ql (S) Nonreactive Normal Nonreactive [facility] Comment on above: Performed By: #### U A, PT, CBCDIF, GBCHEM, GBTSH, MG, RPR #### [facility] [address] [place] [address] CBCDIFon 08-28-2018 Abs Baso 0.06 k/uL Normal 0-0.2 [facility] Comment on above: Performed By: #### U A, PT, CBCDIF, GBCHEM, GBTSH, MG, RPR #### [facility] [address] [place] [address] Abs Austin 1.08 k/uL High 0-0.8 [facility] Comment on above: Performed By: #### U A, PT, CBCDIF, GBCHEM, GBTSH, MG, RPR #### [facility] [address] [place] [address] Abs Neut 4.76 k/uL Normal 1.8-7.7 [facility] Comment on above: Performed By: #### U A, PT, CBCDIF, GBCHEM, GBTSH, MG, RPR #### [facility] [address] [place] [address] Basophils/100 WBC (Bld) 0.8 % Normal 0-[address] [facility] Comment on above: Performed By: #### U A, PT, CBCDIF, GBCHEM, GBTSH, MG, RPR #### [facility] Lab [address] [place] [address] Eosinophils #/vol (Bld) 0.25 10*3/uL Normal 0-0.4 [facility] Comment on above: Performed By: #### U A, PT, CBCDIF, GBCHEM, GBTSH, MG, RPR #### [facility] [address] [place] [address] Eosinophils/100 WBC (Bld) 3.3 % Normal 0-4 [facility] Comment on above: Performed By: #### U A, PT, CBCDIF, GBCHEM, GBTSH, MG, RPR #### [facility] [address] [place] [address] Immature Gran 0.30 % Normal 0-1.9 [facility] Comment on above: Performed By: #### U A, PT, CBCDIF, GBCHEM, GBTSH, MG, RPR #### [facility] [address] [place] [address] Lymphocytes #/vol (Bld) 1.50 10*3/uL Normal 1.0-4.0 [facility] Comment on above: Performed By: #### U A, PT, CBCDIF, GBCHEM, GBTSH, MG, RPR #### [facility] [address] [place] [address] Lymphocytes/100 WBC (Bld) 19.6 % Low 22-44 [facility] Comment on above: Performed By: #### U A, PT, CBCDIF, GBCHEM, GBTSH, MG, RPR #### [facility] [address] [place] [address] Monocytes/100 WBC (Bld) 14.1 % High 4-[address] [facility] Comment on above: Performed By: #### U A, PT, CBCDIF, GBCHEM, GBTSH, MG, RPR #### [facility] [address] [place] [address] Neutrophils/100 WBC (Bld) 61.9 % Normal 40-70 [facility] Comment on above: Performed By: #### U A, PT, CBCDIF, GBCHEM, GBTSH, MG, RPR #### [facility] [address] [place] [address] Erythrocyte distribution width Ratio (RBC) 13.7 % Normal 11.5-14.5 [facility] Comment on above: Performed By: #### U A, PT, CBCDIF, GBCHEM, GBTSH, MG, RPR #### [facility] [address] [place] [address] Hematocrit Volume Fraction (Bld) 45.9 % Normal 36.0-46.0 [facility] Comment on above: Performed By: #### U A, PT, CBCDIF, GBCHEM, GBTSH, MG, RPR #### [facility] [address] [place] [address] Hemoglobin mass conc (Bld) 15.0 g/dL Normal 12.0-16.0 [facility] Comment on above: Performed By: #### U A, PT, CBCDIF, GBCHEM, GBTSH, MG, RPR #### [facility] [address] [place] [address] MCH Entitic mass (RBC) 31.5 pG Normal 26-34 [facility] Comment on above: Performed By: #### U A, PT, CBCDIF, GBCHEM, GBTSH, MG, RPR #### [facility] [address] [place] [address] MCHC mass conc (RBC) 32.7 g/dL Normal 31-37 [facility] Comment on above: Performed By: #### U A, PT, CBCDIF, GBCHEM, GBTSH, MG, RPR #### [facility] [address] [place] [address] MCV Entitic volume (RBC) 96.4 fL Normal 80-100 [facility] Comment on above: Performed By: #### U A, PT, CBCDIF, GBCHEM, GBTSH, MG, RPR #### [facility] [address] [place] [address] NRBCs 0 /100 WBC Normal 0-0.9 [facility] Comment on above: Performed By: #### U A, PT, CBCDIF, GBCHEM, GBTSH, MG, RPR #### [facility] [address] [place] [address] Platelets #/vol (Bld) 248 10*3/uL Normal 150-450 [facility] Comment on above: Performed By: #### U A, PT, CBCDIF, GBCHEM, GBTSH, MG, RPR #### [facility] [address] [place] [address] RBC #/vol (Bld) 4.76 10*6/uL Normal 4.00-5.20 [facility] Comment on above: Performed By: #### U A, PT, CBCDIF, GBCHEM, GBTSH, MG, RPR #### [facility] [address] [place] [address] WBC #/vol (Bld) 7.67 10*3/uL Normal 4.5-11.0 [facility] Comment on above: Performed By: #### U A, PT, CBCDIF, GBCHEM, GBTSH, MG, RPR #### [facility] [address] [place] [address] [facility] Noemy Rich 2018 Albumin mass conc 3.9 g/dL Normal 3.5-5.0 [facility] Comment on above: Performed By: #### U A, PT, CBCDIF, GBCHEM, GBTSH, MG, RPR #### [facility] [address] [place], [place] [address] Alkaline Phos 112 U/L Normal 38-125 [facility] Comment on above: Performed By: #### U A, PT, CBCDIF, GBCHEM, GBTSH, MG, RPR #### [facility] [address] [place], [place] [id number] ALT enzyme act/vol 42 U/L Normal 9-52 [facility] Comment on above: Performed By: #### U A, PT, CBCDIF, GBCHEM, GBTSH, MG, RPR #### [facility] [address] [place] [address] Amylase enzyme act/vol 44 U/L Normal 30-110 [facility] Comment on above: Performed By: #### U A, PT, CBCDIF, GBCHEM, GBTSH, MG, RPR #### [facility] [address] [place] [address] Anion gap molar conc 12 mmol/L Normal 0-15 [facility] Comment on above: Performed By: #### U A, PT, CBCDIF, GBCHEM, GBTSH, MG, RPR #### [facility] Lab [address] [place] [address] AST enzyme act/vol 60 U/L High 17-59 [facility] Comment on above: Performed By: #### U A, PT, CBCDIF, GBCHEM, GBTSH, MG, RPR #### [facility] [address] [place] [address] Bilirubin Ql (U) 0.5 mg/dL Normal 0.2-1.3 [facility] Comment on above: Performed By: #### U A, PT, CBCDIF, GBCHEM, GBTSH, MG, RPR #### [facility] Lab [address] [place] [address] Calcium mass conc 9.4 mg/dL Normal 8.4-10.2 [facility] Comment on above: Performed By: #### U A, PT, CBCDIF, GBCHEM, GBTSH, MG, RPR #### [facility] [address] [place] [address] Chloride molar conc 104 mmol/L Normal 98-107 [facility] Comment on above: Performed By: #### U A, PT, CBCDIF, GBCHEM, GBTSH, MG, RPR #### [facility] [address] [place] [address] Cholesterol mass conc 165 mg/dL Normal 100-199 [facility] Comment on above: Performed By: #### U A, PT, CBCDIF, GBCHEM, GBTSH, MG, RPR #### [facility] [address] [place] [address] CO2 molar conc 28 mmol/L Normal 22-30 [facility] Comment on above: Performed By: #### U A, PT, CBCDIF, GBCHEM, GBTSH, MG, RPR #### [facility] [address] [place] [address] Creatinine mass conc 0.87 mg/dL Normal 0.52-1.04 [facility] Comment on above: Performed By: #### U A, PT, CBCDIF, GBCHEM, GBTSH, MG, RPR #### [facility] Lab [address] [place] [address] eGFR Amer >60 Normal >60 [facility] Comment on above: Result Comment: MDRD calculation used for eGFR results. Performed By: #### U A, PT, CBCDIF, GBCHEM, GBTSH, MG, RPR #### [facility] [address] [place] [address] eGFR non Am >60 Normal >60 [facility] Comment on above: Performed By: #### U A, PT, CBCDIF, GBCHEM, GBTSH, MG, RPR #### [facility] [address] [place] [address] Gamma glutamyl transferase enzyme act/vol 79 U/L High 12-43 [facility] Comment on above: Performed By: #### U A, PT, CBCDIF, GBCHEM, GBTSH, MG, RPR #### [facility] [address] [place] [address] Glucose mass conc 75 mg/dL Normal 74-106 [facility] Comment on above: Performed By: #### U A, PT, CBCDIF, GBCHEM, GBTSH, MG, RPR #### [facility] [address] [facility] [place] [address] LDH 496 U/L Normal 318-618 [facility] Comment on above: Performed By: #### U A, PT, CBCDIF, GBCHEM, GBTSH, MG, RPR #### [facility] [address] [place] [address] Phosphate mass conc 4.7 mg/dL High 2.5-4.5 [facility] Comment on above: Performed By: #### U A, PT, CBCDIF, GBCHEM, GBTSH, MG, RPR #### [facility] [address] [place] [address] Potassium molar conc 4.2 mmol/L Normal 3.5-5.1 [facility] Comment on above: Performed By: #### U A, PT, CBCDIF, GBCHEM, GBTSH, MG, RPR #### [facility] [address] [place] [address] Protein mass conc 6.9 g/dL Normal 6.2-8.2 [facility] Comment on above: Performed By: #### U A, PT, CBCDIF, GBCHEM, GBTSH, MG, RPR #### [facility] [address] [place] [address] Sodium molar conc 140 mmol/L Normal 137-145 [facility] Comment on above: Performed By: #### U A, PT, CBCDIF, GBCHEM, GBTSH, MG, RPR #### [facility] [address] [place] [address] Triglyceride mass conc 123 mg/dL Normal 35-150 [facility] Comment on above: Performed By: #### U A, PT, CBCDIF, GBCHEM, GBTSH, MG, RPR #### [facility] [address] [place] [address] Urate mass conc 2.5 mg/dL Normal 2.5-6.2 [facility] Comment on above: Performed By: #### U A, PT, CBCDIF, GBCHEM, GBTSH, MG, RPR #### [facility] [address] [place] [address] Urea nitrogen mass conc 9 mg/dL Normal 7-[address] [facility] Comment on above: Performed By: #### U A, PT, CBCDIF, GBCHEM, GBTSH, MG, RPR #### [facility] [address] [place], [place] [id number] [facility] TSHon 08-28-2018 Thyrotropin Qn 6.750 uU/mL High 0.465-4.680 [facility] Comment on above: Performed By: #### U A, PT, CBCDIF, GBCHEM, GBTSH, MG, RPR #### [facility] [address] [place] [address] Magnesiumon 08-28-2018 Magnesium mass conc 2.4 mg/dL High 1.3-2.3 [facility] Comment on above: Performed By: #### U A, PT, CBCDIF, GBCHEM, GBTSH, MG, RPR #### [facility] [address] [place], [place] [id number] Protimeon 08-28-2018 Prothrombin time (PT) Coag time (PPP) 0.9 s Normal 0.6-1.1 [facility] Comment on above: Result Comment: [...] GBTSH, MG, RPR #### [facility] [address] [facility] [place], [place] [id number] Prothrombin time (PT) Coag time (PPP) 12.2 s Normal 11.8-14.1 [facility] Comment on above: Performed By: #### U A, PT, CBCDIF, GBCHEM, GBTSH, MG, RPR #### [facility] [address] [facility] [place] [address] T3 Totalon 08-28-2018 T3 Total 1.0 ng/mL Normal 0.970-1.69 [facility] Comment on above: Performed By: #### T 3TOT, T3U, T4 #### [facility] [address] [place] [address] T3 Uptakeon 08-28-2018 T3 Uptake 29.7 % Normal 23.5-40.5 [facility] Comment on above: Performed By: #### T 3TOT, T3U, T4 #### [facility] [address] [place], [place] [id number] T4on 08-28-2018 T4 4.4 ug/dL Low 5.5-11.0 [facility] Comment on above: Performed By: #### T 3TOT, T3U, T4 #### [facility] [address] [place], [place] [id number] Urinalysison 08-28-2018 Bilirubin mass conc Negative Normal Negative [facility] Comment on above: Performed By: #### U A, PT, CBCDIF, GBCHEM, GBTSH, MG, RPR #### [facility] [address] [place], [place] [id number] Clarity Nom (U) Clear Normal Clear [facility] Comment on above: Performed By: #### U A, PT, CBCDIF, GBCHEM, GBTSH, MG, RPR #### [facility] [address] [place] [address] Color Nom (U) Straw Critically abnormal Yellow [facility] Comment on above: Performed By: #### U A, PT, CBCDIF, GBCHEM, GBTSH, MG, RPR #### [facility] [address] [place] [address] Comments MICROSCOPIC ANALYSIS NOT DONE ON URINES WITH NEGATIVE BIOCHEMICAL TESTS Normal [facility] Comment on above: Performed By: #### U A, PT, CBCDIF, GBCHEM, GBTSH, MG, RPR #### [facility] [address] [place] [address] Glucose mass conc Negative Normal Negative [facility] Comment on above: Performed By: #### U A, PT, CBCDIF, GBCHEM, GBTSH, MG, RPR #### [facility] [address] [place] [address] Hemoglobin/Blood Negative Normal Negative [facility] Comment on above: Performed By: #### U A, PT, CBCDIF, GBCHEM, GBTSH, MG, RPR #### [facility] [address] [place] [address] Ketone Negative Normal Negative [facility] Comment on above: Performed By: #### U A, PT, CBCDIF, GBCHEM, GBTSH, MG, RPR #### [facility] [address] [place] [address] Leukest Negative Normal Negative [facility] Comment on above: Performed By: #### U A, PT, CBCDIF, GBCHEM, GBTSH, MG, RPR #### [facility] [address] [place] [address] Nitrite Ql (U) Negative Normal Negative [facility] Comment on above: Performed By: #### U A, PT, CBCDIF, GBCHEM, GBTSH, MG, RPR #### [facility] [address] [place] [address] pH (U) 7.0 [pH] Normal 5-7 [facility] Comment on above: Performed By: #### U A, PT, CBCDIF, GBCHEM, GBTSH, MG, RPR #### [facility] [address] [place] [address] Protein mass conc (U) Negative Normal Negative [facility] Comment on above: Performed By: #### U A, PT, CBCDIF, GBCHEM, GBTSH, MG, RPR #### [facility] [address] [place] [address] Urine Spec Mobile 1.004 Low 1.005-1.030 [facility] Comment on above: Performed By: #### U A, PT, CBCDIF, GBCHEM, GBTSH, MG, RPR #### [facility] [address] [place] [address] Urobilinogen Qn (U) <2.0 Normal 0.0-1.0 [facility] Comment on above: Performed By: #### U A, PT, CBCDIF, GBCHEM, GBTSH, MG, RPR #### [facility] [address] [place] [address] ALLIED HEALTHon 08-27-2018 ALLIED HEALTH HNO ID: [id number] Author: Yazmin (Therapist) Adriano Service: Music Therapy [...] open to the activities. SIGNATURE: Yazmin Oh [facility] PATIENT NAME: Karen Solis DATE: August 27, 2018 TIME: 3:49 PM [facility] ALLIED HEALTH HNO ID: [id number] Author: Gifty Kaplan) Calixto Service: Art Therapy [...] She is relieved to be going to [facility] for residential today. She feels if she would've went home family stress and idle time would leave her to relapse. SIGNATURE: Gifty De Luna, MIXER HELPER,ATR, TENTER FRAME BACK TENDER PATIENT NAME: Karen Solis DATE: August 27, 2018 TIME: 1:47 PM [facility] PROGRESSon 08-27-2018 Protein mass conc HNO ID: [id number] Author: Lian Aparicio Service: ? Author Type: Physician Type: Progress Notes Filed: 10/20/2018 9:46 PM Note Text: [facility] - General Progress Note KAREN SOLIS : 1970 AGE: 48 SEX: F CSN: [id number] [facility]OS[facility] SVC: [facility] LOCATION: [facility] ATTENDING PHYSICIAN: Bill Patten M.D. DATE OF [...] Smoking cessation. Lian Aparicio M.D. Internal Medicine JOYNER:[id number] [facility] HEALTHon 08-26-2018 ALLIED HEALTH HNO ID: [id number] Author: Lashell (Therapist) Britton Service: Art Therapy [...] images of animals and a cabin in [place]. Pt stated that she enjoyed the presence of animals and that she has always wanted to travel to [place]. SIGNATURE: Lashell Jarquin [facility] PATIENT NAME: Karen Solis DATE: August 26, 2018 TIME: 3:51 PM [facility] HNO ID: [id number] Author: RASHMI Alanis Service: Recreational Therapy Author [...] DATE: August 26, 2018 TIME: 2:49 PM [facility] HNO ID: [id number] Author: Yazmin (Therapist) Adriano Service: Music Therapy [...] 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 SIGNATURE: Yazmin Oh [facility] PATIENT NAME: Karen Solis DATE: August 26, 2018 TIME: 1:53 PM [facility] HNO ID: [id number] Author: Gifty De Luna (Lsw) Service: Art Therapy Author Type: Art Therapist Type: [facility] Health Filed: 08/26/2018 11:17 AM Note Text: [...] anxious and optimistic about discharge today to [facility] for residential She values her family, dogs, health, God and happiness. She feels her family thinks she values her sobriety and strength currently. She continues to want to work on earning her families trust and respect back . SIGNATURE: Gifty De Luna LPC,ATR, TENTER FRAME BACK TENDER PATIENT NAME: Karen Solis DATE: August 26, 2018 TIME: 11:08 AM Normal [facility] CBC and Differentialon 08-26 Abs Baso 0.04 k/uL Normal <0.11 [facility] Comment on above: Performed By: #### U HCG, UAWMIC, UTOX2 #### [place] [address] Abs Austin 1.07 k/uL High <0.87 [facility] Comment on above: Performed By: #### U HCG, UAWMIC, UTOX2 #### [place] [address] Abs Neut 6.92 k/uL Normal 1.45-7.50 [facility] Comment on above: Performed By: #### U HCG, UAWMIC, UTOX2 #### [place] [address] Basophils/100 WBC (Bld) 0.4 % Normal [facility] Comment on above: Performed By: #### U HCG, UAWMIC, UTOX2 #### [place] [address] Eosinophils #/vol (Bld) 0.19 10*3/uL Normal <0.46 [facility] Comment on above: Performed By: #### U HCG, UAWMIC, UTOX2 #### [place] [address] Eosinophils/100 WBC (Bld) 2.1 % Normal [facility] Comment on above: Performed By: #### U HCG, UAWMIC, UTOX2 #### [place] [address] Erythrocyte distribution width Ratio (RBC) 14.0 % Normal 11.5-15.0 [facility] Comment on above: Performed By: #### U HCG, UAWMIC, UTOX2 #### [place] [address] Hematocrit Volume Fraction (Bld) 41.3 % Normal 36.0-46.0 [facility] Comment on above: Performed By: #### U HCG, UAWMIC, UTOX2 #### [place] [address] Hemoglobin mass conc (Bld) 13.9 g/dL Normal 11.5-15.5 [facility] Comment on above: Performed By: #### U HCG, UAWMIC, UTOX2 #### [place] [address] Lymphocytes #/vol (Bld) 0.86 10*3/uL Low 1.00-4.00 [facility] Comment on above: Performed By: #### U HCG, UAWMIC, UTOX2 #### [place] [address] Lymphocytes/100 WBC (Bld) 9.5 % Normal [facility] Comment on above: Performed By: #### U HCG, UAWMIC, UTOX2 #### [place] [address] MCH Entitic mass (RBC) 32.3 pG Normal 26.0-34.0 [facility] Comment on above: Performed By: #### U HCG, UAWMIC, UTOX2 #### [place] [address] MCHC mass conc (RBC) 33.7 g/dL Normal 30.5-36.0 [facility] Comment on above: Performed By: #### U HCG, UAWMIC, UTOX2 #### [place] [address] MCV Entitic volume (RBC) 95.8 fL Normal 80.0-100.0 [facility] Comment on above: Performed By: #### U HCG, UAWMIC, UTOX2 #### [place] [address] Monocytes/100 WBC (Bld) 11.8 % Normal [facility] Comment on above: Performed By: #### U HCG, UAWMIC, UTOX2 #### [place] [address] Neutrophils/100 WBC (Bld) 76.2 % Normal [facility] Comment on above: Performed By: #### U HCG, UAWMIC, UTOX2 #### [place] [address] NRBCs 0.0 /100 WBC Normal 0 [facility] Comment on above: Performed By: #### U HCG, UAWMIC, UTOX2 #### [place] [address] Platelet mean volume Entitic volume (Bld) 10.6 fL Normal 9.0-12.7 [facility] Comment on above: Performed By: #### U HCG, UAWMIC, UTOX2 #### [place] [address] Platelets #/vol (Bld) 191 10*3/uL Normal 150-400 [facility] Comment on above: Performed By: #### U HCG, UAWMIC, UTOX2 #### [place] [address] RBC #/vol (Bld) 4.31 10*6/uL Normal 3.90-5.20 [facility] Comment on above: Performed By: #### U HCG, UAWMIC, UTOX2 #### [place] [address] WBC #/vol (Bld) 9.08 10*3/uL Normal 3.70-11.00 [facility] Comment on above: Performed By: #### U HCG, UAWMIC, UTOX2 #### [place] [address] Comp Metabolic Panelon 08-26 Albumin mass conc 3.6 g/dL Low 3.9-4.9 [facility] Comment on above: Performed By: #### U HCG, UAWMIC, UTOX2 #### [place] [address] ALP enzyme act/vol 112 U/L Normal 34-123 [facility] Comment on above: Performed By: #### U HCG, UAWMIC, UTOX2 #### [place] [address] ALT enzyme act/vol 38 U/L Normal 7-38 [facility] Comment on above: Performed By: #### U HCG, UAWMIC, UTOX2 #### [place] [address] Anion gap molar conc 11 mmol/L Normal 9-18 [facility] Comment on above: Performed By: #### U HCG, UAWMIC, UTOX2 #### [place] [address] AST enzyme act/vol 51 U/L High 13-35 [facility] Comment on above: Performed By: #### U HCG, UAWMIC, UTOX2 #### [place] [address] Bilirubin mass conc 0.3 mg/dL Normal 0.2-1.3 [facility] Comment on above: Performed By: #### U HCG, UAWMIC, UTOX2 #### [place] [address] Calcium mass conc 9.1 mg/dL Normal 8.5-10.2 [facility] Comment on above: Performed By: #### U HCG, UAWMIC, UTOX2 #### [place] [address] Chloride molar conc 103 mmol/L Normal 97-105 [facility] Comment on above: Performed By: #### U HCG, UAWMIC, UTOX2 #### [place] [address] CO2 molar conc 24 mmol/L Normal 22-30 [facility] Comment on above: Performed By: #### U HCG, UAWMIC, UTOX2 #### [place] [address] Creatinine mass conc 0.88 mg/dL Normal 0.58-0.96 [facility] Comment on above: Performed By: #### U HCG, UAWMIC, UTOX2 #### [place] [address] eGFR- Amer. >60 Normal >60 [facility] Comment on above: Performed By: #### U HCG, UAWMIC, UTOX2 #### [place] [address] GFR/1.73 sq M predicted among non-blacks MDRD vol rate/area (S/P/Bld) mL/min/{1.73_m2} Normal >60 [facility] Comment on above: Result Comment: eGFR [...] By: #### U HCG, UAWMIC, UTOX2 #### [place] [address] Glucose mass conc 115 mg/dL High 74-99 [facility] Comment on above: Performed By: #### U HCG, UAWMIC, UTOX2 #### [place] [address] Potassium molar conc 4.1 mmol/L Normal 3.7-5.1 [facility] Comment on above: Performed By: #### U HCG, UAWMIC, UTOX2 #### [place] [address] Protein mass conc 5.6 g/dL Low 6.3-8.0 [facility] Comment on above: Performed By: #### U HCG, UAWMIC, UTOX2 #### [place] [address] Sodium molar conc 138 mmol/L Normal 136-144 [facility] Comment on above: Performed By: #### U HCG, UAWMIC, UTOX2 #### [place] [address] Urea nitrogen mass conc 9 mg/dL Normal 7-21 [facility] Comment on above: Performed By: #### U HCG, UAWMIC, UTOX2 #### [place] [address] Magnesiumon 08-26-2018 Magnesium mass conc 2.4 mg/dL High 1.7-2.3 [facility] Comment on above: Performed By: #### U HCG, UAWMIC, UTOX2 #### [place] [address] PROGRESSon 08-26-2018 Protein mass conc HNO ID: [id number] Author: Lian Aparicio Service: ? Author Type: Physician Type: Progress Notes Filed: 10/20/2018 9:49 PM Note Text: [facility] - General Progress Note KAREN SOLIS : 1970 AGE: 48 SEX: F CSN: [id number] [facility]: [facility] LOCATION: [facility] ATTENDING PHYSICIAN: Bill Patten M.D. DATE OF [...] edema Lian Aparicio M.D. Internal Medicine Normal [facility] Phosphoruson 08-26-2018 Phosphate mass conc 4.4 mg/dL Normal 2.7-4.8 [facility] Comment on above: Performed By: #### U HCG, UAWMIC, UTOX2 #### [facility] [address] [address] ALLIED HEALTHon 08-25-2018 ALLIED HEALTH HNO ID: [id number] Author: Katy (Therapist) Ct Service: Art Therapy [...] the back of her poem. SIGNATURE: BUNNY Dean [facility] PATIENT NAME: Karen Solis DATE: August 25, 2018 TIME: 3:45 PM [facility] HNO ID: [id number] Author: Lashell (Therapist) Britton Service: Art Therapy [...] happy she is alive. SIGNATURE: Lashell Jarquin [facility] A[facility] PATIENT NAME: Karen Solis DATE: August 25, 2018 TIME: 1:38 PM [facility] HNO ID: [id number] Author: Katy (Therapist) Ct Service: Art Therapy Author Type: Therapist Type: Allied Health Filed: 08/25/2018 11:32 AM Note Text: GROUP PROGRESS NOTE SERVICE DATE: 08/25/2018 SERVICE TIME: 929 Length (minutes): 60 Attendance: Attended 3/4 to [...] music and the groups. SIGNATURE: BUNNY Dean, [facility] PATIENT NAME: Karen Solis DATE: August 25, 2018 TIME: 11:24 AM [facility] NURSING PROGon 08-25-2018 Protein mass conc HNO ID: [id number] Author: Padilla (Rn) MANI Lewis Service: Nursing Author Type: Registered Nurse Type: Nursing Progress Note Filed: 08/25/2018 6:56 AM Note Text: Nursing Progress Note Patient Name: Karen Solis Patient Location: [address]/[place] [address]* Daily Note:[id number] At beginning of shift pt observed to [...] note was completed by: Padilla Lewis RN [facility] ALLIED HEALTHon 08-24-2018 ALLIED HEALTH HNO ID: [id number] Author: RASHMI Alanis Service: Recreational Therapy Author [...] DATE: August 24, 2018 TIME: 3:36 PM [facility] ALLIED HEALTH HNO ID: [id number] Author: Gifty De Luna (Lsw) Service: Art [...] for the group. SIGNATURE: Gifty De Luna LPC, ATR, TENTER FRAME BACK TENDER PATIENT NAME: Karen Solis DATE: August 24, 2018 TIME: 4:49 PM [facility] HNO ID: [id number] Author: Cathy Anna-Black Elliott Service: Art Therapy Author Type: Art Therapist [...] her spouse to confirm treatment option. SIGNATURE: EVELYNE Valente PATIENT NAME: Karen Solis DATE: August 24, 2018 TIME: 2:06 PM [facility] HNO ID: [id number] Author: Gifty De Luna (Lsw) Service: Art [...] and meetings. SIGNATURE: Gifty De Luna, ELOY,ATR, TENTER FRAME BACK TENDER PATIENT NAME: Karen Solis DATE: August 24, 2018 TIME: 1:12 PM [facility] Hepatitis Remote Panelon HBsAg Negative Normal Negative [facility] Comment on above: Performed By: #### U HCG, UAWMIC, UTOX2 #### [place] [address] Hep B Core Ab,Total Negative Normal Negative [facility] Comment on above: Performed By: #### U HCG, UAWMIC, UTOX2 #### [place] [address] Hepatitis C Ab IA Negative Normal Negative [facility] Comment on above: Performed By: #### U HCG, UAWMIC, UTOX2 #### [place] [address] HepB Surface Ab,Qual Negative Normal Negative [facility] Comment on above: Result Comment: CELSO TIGRISEL Performed By: #### U HCG, UAWMIC, UTOX2 #### [place] [address] NURSING PROGon 08-24-2018 Protein mass conc HNO ID: [id number] Author: Padilla (Rn) MANI Lewis Service: Nursing Author Type: Registered Nurse Type: Nursing Progress Note Filed: 08/24/2018 7:01 AM Note Text: Nursing Progress Note Patient Name: Karen Solis Patient Location: [id number]* Daily Note:[id number] At beginning of shift pt observed to [...] note was completed by: Padilla Lewis RN [facility] PROGRESSon 08-24-2018 Protein mass conc HNO ID: [id number] Author: Lian Aparicio Service: ? Author Type: Physician Type: Progress Notes Filed: 10/17/2018 11:37 PM Note Text: [facility] - General Progress Note KAREN SOLIS : 1970 AGE: 48 SEX: F CSN: [id number] [facility]: [facility] LOCATION: [facility] ATTENDING PHYSICIAN: Bill Patten M.D. DATE OF [...] - Chronic obstructive pulmonary disease (COPD) ([facility]) Social History Socioeconomic History Marital status: Unknown [...] edema Lian Aparicio M.D. Internal Medicine Normal [facility] Syphilis IgG with Confon Syphilis IgG <0.2 [facility] Comment on above: Result Comment: Anti body index is interpreted as follows: Non reactive SPECIMENS <=0.8 Weak reactive SPECIMENS 0.9 to 5.9 Reactive SPECIMENS >=6.0 Performed By: #### U HCG, UAWMIC, UTOX2 #### [place] [address] [place] [address] Syphilis IgG, Qual Nonreactive Normal Nonreactive [facility] Comment on above: Result Comment: No s erological evidence of infection with T. pallidum. Performed By: #### U HCG, UAWMIC, UTOX2 #### [place] [address] XR LUMBAR 2V AP/LATon 2018 XR LUMBAR [...] Left-sided convex curvature of the lumbar spine. Cambering Machine Operator: SONNY Transcribe Date/Time: Aug 24 2018 9:30A Dictated by : ARMAND EVANS MD This examination was interpreted and the report reviewed and electronically signed by: ARMAND EVANS MD on Aug 24 2018 9:33AM EST [id number] [facility] 08-[facility]-2018 ALLIED [facility] HNO ID: [id number] Author: Cathy [facility] Service: Art Therapy Author Type: Art [...] to feel little better. SIGNATURE: [facility] Corley [facility]: Karen Solis DATE: August 23, 2018 TIME: 5:33 PM [facility] HNO ID: [id number] Author: Moncho Hollins (Chaplain) Service: Spiritual Care Author Type: Beekeeper Farmer Type: Allied Health Filed: 08/23/2018 12:24 PM [...] DATE: August 23, 2018 TIME: 12:23 PM [facility] HNO ID: [id number] Author: Gifty De Luna (Lsw) Service: Art Therapy Author Type: Art Therapist Type: [facility] Health Filed: 08/23/2018 11:16 AM Note Text: GROUP PROGRESS NOTE SERVICE DATE: 08/23/2018 SERVICE TIME: 9:30 AM Length (minutes): 60 Attendance: Sleeping Participation Level: Did Not Attend GROUP PARTICIPATION: Group Topics: Community Meeting: Reflective Quotes, Symptom AND Mood Check-In and Treatment Progress SIGNATURE: Gifty De Luna LPC,ATR, TENTER FRAME BACK TENDER PATIENT NAME: Karen Solis DATE: August 23, 2018 TIME: 11:15 AM [facility] PROGRESSon 08-23-2018 Protein mass conc HNO ID: [id number] Author: Patsy Juarez Service: General Internal Medicine [...] Patsy Juarez MD DATE: August 23, 2018 [facility] PROGRESSon 08-22-2018 Protein mass conc HNO ID: [id number] Author: Lian Aparicio Service: ? Author Type: Physician Type: Progress Notes Filed: 10/18/2018 10:26 PM Note Text: [facility] - General Progress Note KAREN SOLIS : 1970 AGE: 48 SEX: F CSN: [id number] [facility]: [facility] LOCATION: [facility] ATTENDING PHYSICIAN: Bill Patten M.D. DATE OF [...] - Chronic obstructive pulmonary disease (COPD) ([facility]) Social History Socioeconomic History Marital status: Unknown [...] / radial Lian Aparicio M.D. Internal Medicine [facility] 08-21-2018 ALLIED HEALTH HNO ID: [id number] Author: Gifty De Luna (Lsw) Service: Art [...] therapist attempted to assess. Pt last on [facility] 2012. Therapist will continue to encourage her to attend groups once she is awake/alert. SIGNATURE: Gifty De Luna LPC, ATR, LSW PATIENT NAME: Karen Solis DATE: August 21, 2018 TIME: 1:48 PM PAGER/CONTACT #: [facility] HNO ID: [id number] Author: Gifty De Luna (Lsw) Service: Art [...] DATE: August 21, 2018 TIME: 2:[address] [facility] HEALTH HNO ID: [id number] Author: Gifty De Luna (Lsw) Service: Art Therapy Author Type: Art Therapist Type: Allied Health Filed: 08/21/2018 11:22 AM Note Text: GROUP PROGRESS NOTE SERVICE DATE: 08/21/2018 SERVICE TIME: 11:00 AM Length (minutes): 30 Attendance: Sleeping Participation Level: Did Not Attend GROUP PARTICIPATION: Group Topics: Community Resources: Alcoholics Anonymous SIGNATURE: Gifty De Luna LPC,ATR, TENTER FRAME BACK TENDER PATIENT NAME: Karen Solis DATE: August 21, 2018 TIME: 11:22 AM [facility] HNO ID: [id number] Author: Gifty De Luna (Lsw) Service: Art Therapy Author Type: Art Therapist Type: Allied Health Filed: 08/21/2018 9:43 AM Note Text: GROUP PROGRESS NOTE SERVICE DATE: 08/21/2018 SERVICE TIME: 9:15 AM Length (minutes): 15 Attendance: Sleeping Participation Level: Did Not Attend GROUP PARTICIPATION: Group Topics: Community Meeting: Reflective Quotes, Symptom AND Mood Check-In and Treatment Progress SIGNATURE: Gifty De Luna LPC,ATR, TENTER FRAME BACK TENDER PATIENT NAME: Karen Solis DATE: August 21, 2018 TIME: 9:43 AM [facility] CBC and Differentialon 08-21 Abs Baso 0.05 k/uL Normal <0.11 [facility] Comment on above: Performed By: #### C BCDIF, ALCO, CMP, MG1 #### [place] [address] Abs Austin 0.69 k/uL Normal <0.87 [facility] Comment on above: Performed By: #### C BCDIF, ALCO, CMP, MG1 #### [place] [address] Abs Neut 3.91 k/uL Normal 1.45-7.50 [facility] Comment on above: Performed By: #### C BCDIF, ALCO, CMP, MG1 #### [place] [address] Basophils/100 WBC (Bld) 0.8 % Normal [facility] Comment on above: Performed By: #### C BCDIF, ALCO, CMP, MG1 #### [place] [address] Eosinophils #/vol (Bld) 0.12 10*3/uL Normal <0.46 [facility] Comment on above: Performed By: #### C BCDIF, ALCO, CMP, MG1 #### [place] [address] Eosinophils/100 WBC (Bld) 1.8 % Normal [facility] Comment on above: Performed By: #### C BCDIF, ALCO, CMP, MG1 #### [place] [address] Erythrocyte distribution width Ratio (RBC) 14.2 % Normal 11.5-15.0 [facility] Comment on above: Performed By: #### C BCDIF, ALCO, CMP, MG1 #### [place] [address] Hematocrit Volume Fraction (Bld) 47.2 % High 36.0-46.0 [facility] Comment on above: Performed By: #### C BCDIF, ALCO, CMP, MG1 #### [place] [address] Hemoglobin mass conc (Bld) 17.0 g/dL High 11.5-15.5 [facility] Comment on above: Performed By: #### C BCDIF, ALCO, CMP, MG1 #### [place] [address] Lymphocytes #/vol (Bld) 1.89 10*3/uL Normal 1.00-4.00 [facility] Comment on above: Performed By: #### C BCDIF, ALCO, CMP, MG1 #### [place] [address] Lymphocytes/100 WBC (Bld) 28.4 % Normal [facility] Comment on above: Performed By: #### C BCDIF, ALCO, CMP, MG1 #### [place] [address] MCH Entitic mass (RBC) 32.7 pG Normal 26.0-34.0 [facility] Comment on above: Performed By: #### C BCDIF, ALCO, CMP, MG1 #### [place] [address] MCHC mass conc (RBC) 36.0 g/dL Normal 30.5-36.0 [facility] Comment on above: Performed By: #### C BCDIF, ALCO, CMP, MG1 #### [place] [address] MCV Entitic volume (RBC) 90.8 fL Normal 80.0-100.0 [facility] Comment on above: Performed By: #### C BCDIF, ALCO, CMP, MG1 #### [place] [address] Monocytes/100 WBC (Bld) 10.4 % Normal [facility] Comment on above: Performed By: #### C BCDIF, ALCO, CMP, MG1 #### [place] [address] Neutrophils/100 WBC (Bld) 58.6 % Normal [facility] Comment on above: Performed By: #### C BCDIF, ALCO, CMP, MG1 #### [place] [address] NRBCs 0.0 /100 WBC Normal 0 [facility] Comment on above: Performed By: #### C BCDIF, ALCO, CMP, MG1 #### [place] [address] Platelet mean volume Entitic volume (Bld) 9.1 fL Normal 9.0-12.7 [facility] Comment on above: Performed By: #### C BCDIF, ALCO, CMP, MG1 #### [place] [address] Platelets #/vol (Bld) 278 10*3/uL Normal 150-400 [facility] Comment on above: Performed By: #### C BCDIF, ALCO, CMP, MG1 #### [place] [address] RBC #/vol (Bld) 5.20 10*6/uL Normal 3.90-5.20 [facility] Comment on above: Performed By: #### C BCDIF, ALCO, CMP, MG1 #### [place] [address] WBC #/vol (Bld) 6.66 10*3/uL Normal 3.70-11.00 [facility] Comment on above: Performed By: #### C BCDIF, ALCO, CMP, MG1 #### [place] [address] Comp Metabolic Panelon 08-21 Albumin mass conc 4.6 g/dL Normal 3.9-4.9 [facility] Comment on above: Performed By: #### C BCDIF, ALCO, CMP, MG1 ####[place] [id number] ALP enzyme act/vol 152 U/L High 34-123 [facility] Comment on above: Performed By: #### C BCDIF, ALCO, CMP, MG1 ####[place] [id number] ALT enzyme act/vol 31 U/L Normal 7-38 [facility] Comment on above: Performed By: #### C BCDIF, ALCO, CMP, MG1 ####[place] [id number] Anion gap molar conc 13 mmol/L Normal 9-18 [facility] Comment on above: Performed By: #### C BCDIF, ALCO, CMP, MG1 ####[place] [id number] AST enzyme act/vol 44 U/L High 13-35 [facility] Comment on above: Performed By: #### C BCDIF, ALCO, CMP, MG1 ####[place] [id number] Bilirubin mass conc 0.2 mg/dL Normal 0.2-1.3 [facility] Comment on above: Performed By: #### C BCDIF, ALCO, CMP, MG1 ####[place] [id number] Calcium mass conc 9.1 mg/dL Normal 8.5-10.2 [facility] Comment on above: Performed By: #### C BCDIF, ALCO, CMP, MG1 ####[place] [id number] Chloride molar conc 97 mmol/L Normal 97-105 [facility] Comment on above: Performed By: #### C BCDIF, ALCO, CMP, MG1 ####[place] [id number] CO2 molar conc 26 mmol/L Normal 22-30 [facility] Comment on above: Performed By: #### C BCDIF, ALCO, CMP, MG1 ####[place] [id number] Creatinine mass conc 0.69 mg/dL Normal 0.58-0.96 [facility] Comment on above: Performed By: #### C BCDIF, ALCO, CMP, MG1 ####[place] [id number] eGFR- Amer. >60 Normal >60 [facility] Comment on above: Performed By: #### C BCDIF, ALCO, CMP, MG1 ####[place] [id number] GFR/1.73 sq M predicted among non-blacks MDRD vol rate/area (S/P/Bld) mL/min/{1.73_m2} Normal >60 [facility] Comment on above: Result Comment: eGFR [...] By: #### C BCDIF, ALCO, CMP, MG1 ####[place] [id number] Glucose mass conc 124 mg/dL High 74-99 [facility] Comment on above: Performed By: #### C BCDIF, ALCO, CMP, MG1 ####[place] [id number] Potassium molar conc 3.6 mmol/L Low 3.7-5.1 [facility] Comment on above: Performed By: #### C BCDIF, ALCO, CMP, MG1 ####[place] [id number] Protein mass conc 7.5 g/dL Normal 6.3-8.0 [facility] Comment on above: Performed By: #### C BCDIF, ALCO, CMP, MG1 ####[place] [id number] Sodium molar conc 136 mmol/L Normal 136-144 [facility] Comment on above: Performed By: #### C BCDIF, ALCO, CMP, MG1 ####[place] [id number] Urea nitrogen mass conc 5 mg/dL Low 7-21 [facility] Comment on above: Performed By: #### C BCDIF, ALCO, CMP, MG1 ####[facility] [phone] ECG COMPLETEon 08-21-2018 ECG COMPLETE NAME : KAREN SOLIS PID : [id number] : 1970 Gender : Female Race : ORD : [id number] Procedure Date : Aug 20 2018 23:08:21 Edit Date : Aug 22 2018 10:03:53 Diagnosis:SINUS RHYTHM PROBABLE LEFT ATRIAL ABNORMALITY PROBABLE INFERIOR INFARCT, OLD BORDERLINE PROLONGED QT INTERVAL Abnormal ECG No Stemi ROSA MARIA 08/20 @ 2328 Confirmed by DO CRANE NICHOLAS ([id number]), managing editor DIONY MASCORRO ([id number]) on 08/22/2018 10:03:50 AM Ventricular Rate : 94 BPM Atrial Rate : 94 BPM P-R Interval : 196 ms QRS Duration : 82 ms Q-T Interval : 400 ms QTC Calculation(Bezet) : 500 ms P Colon : 74 degrees R Colon : 23 degrees T Colon : 46 degrees Test Reason : Pre-OP Location : 502 : LUED 5 Overread By : DO CRANE NICHOLAS Edited By : DIONY MASCORRO Referred By : , Acquired by : , [facility] ED NOTEon 08-21-2018 ED NOTE HNO ID: [id number] Author: Mary MoctezumaRn) MANI Quintana Service: (none) Author Type: Registered Nurse Type: ED Notes Filed: 08/21/2018 12:00 AM Note Text: Patient resting in bed, rise and fall of chest observed. Safety maintained and will continue to monitor [facility] ED NOTE HNO ID: [id number] Author: Mary MoctezumaRn) Lilian, MANI Service: (none) Author Type: Registered Nurse Type: ED Notes Filed: 08/20/2018 11:38 PM Note Text: Medication given. Patient educated on medication and verbalized understanding. Patient agreeable with POC. Will continue to monitor. [facility] ED NOTE HNO ID: [id number] Author: Mary MoctezumaRn) Lilian, MANI Service: (none) Author Type: Registered Nurse Type: ED Notes Filed: 08/20/2018 11:26 PM Note Text: Intake at bedside [facility] ED NOTE HNO ID: [id number] Author: Mary (Rn) MANI Quintana Service: (none) Author Type: Registered Nurse Type: ED Notes Filed: 08/20/2018 11:14 PM Note Text: Labs were drawn and sent. [facility] ED NOTE HNO ID: [id number] Author: Mary MoctezumaRn) MANI Quintana Service: (none) Author Type: Registered Nurse Type: ED Notes Filed: 08/20/2018 11:11 PM Note Text: Medication given. Patient educated on medication and verbalized understanding. Patient agreeable with POC. Will continue to monitor. [facility] ED NOTE HNO ID: [id number] Author: Gwendolyn MoctezumaRn) Clem Rod RN Service: Nursing Author Type: Registered Nurse Type: ED Notes Filed: 08/20/2018 10:55 PM Note Text: Clean catch urine specimen obtained and sent. [facility] ED NOTE HNO ID: [id number] Author: Rubén MoctezumaRn) MANI Grya Service: (none) Author Type: Registered Nurse Type: ED Notes Filed: 08/20/2018 10:53 PM Note Text: Patient has an ID Band on, family at bedside, bed in lowest locked position. Patient provided hospital gown and pants and non slip socks. Patient to restroom to provide sample at this time. [facility] ED PROV NOTEon 08-21-2018 Protein mass conc HNO ID: [id number] Author: Ramin Crane DO Service: Emergency Medicine [...] provided by: Patient, medical records and relative court interpreter used: No PAST MEDICAL HISTORY Diagnosis Date [...] per minute AXIS: Normal axis INTERVALS: Normal MN interval QRS COMPLEX: Normal ST SEGMENT: Normal [...] DO Ramin Ventura DO 08/20/18 2347 Normal [facility] Ethanolon 08-21-2018 Ethanol mass conc 247 mg/dL High <11 [facility] Comment on above: Performed By: #### C BCDIF, ALCO, CMP, MG1 #### [place] [id number] HCG Qual, Urineon 08-21-2018 HCG.beta subunit ( test) Ql (U) Negative Normal Negative [facility] Comment on above: Performed By: #### U HCG, UAWMIC, UTOX2 #### [address] [address] Magnesiumon 08-21-2018 Magnesium mass conc 2.2 mg/dL Normal 1.7-2.3 [facility] Comment on above: Performed By: #### C BCDIF, ALCO, CMP, MG1 ####[facility] [phone] NURSING PROGon 08-21-2018 Protein mass conc HNO ID: [id number] Author: Padilla (Rn) MANI Lewis Service: Nursing Author Type: Registered Nurse Type: Nursing Progress Note Filed: 08/21/2018 6:37 AM Note Text: Nursing Progress Note Patient Name: Karen Solis Patient Location: [id number]/[facility]-405* SENSITIVE [facility] Nursing Admission Note PATIENT NAME: [...] 1 past detox in 2012 here on [facility], was sober 3 years and has been [...] to toe assessment: Patient presented to the [facility] dressed in a hospital gown with [...] note was completed by: Padilla Lewis RN [facility] Protein mass conc HNO ID: [id number] Author: Padilla (Rn) MANI Lewis Service: Nursing Author Type: Registered Nurse Type: Nursing Progress Note Filed: 08/21/2018 6:30 AM Note Text: Nursing Progress Note Patient Name: Karen Solis Patient Location: [address]/[place] [address]* [address]ENS[address] [facility] SUICIDE RISK ASSESSMENT PATIENT NAME: Karen Solis SERVICE DATE: 08/21/2018 SERVICE TIME: 0410 LETHALITY FACTORS: Access to Means: Any firearms in home?No Moved a firearm recently?No Any current suicide plan not involving firearm? No Is patient an inpatient in [facility]?Yes--does any suicide plan suggest risk of [...] Presence of Meaningful Daily Activities?Yes Currently employed?No Hoahaoism Affiliation?Yes Therapeutic [place]: Does pt believe treatment can help his/her negative feelings?Yes History of good medication compliance in past?Yes FORMULATION OF SUICIDE RISK: low Will any interventions be undertaken to address above-listed Lethality or Protective Factors? Reduce alcohol and drug abuse Consult Pastoral Care to improve hinduism affiliation SIGNATURE: Padilla Lewis RN DATE: August 21, 2018 TIME: 6:27 AM Assessment adapted from Suicide Prevention Toolkit for Implementation of NPSG 15A by [facility] This note was completed by: Padilla Lewis RN [facility] PROGRESSon 08-21-2018 Protein mass conc HNO ID: [id number] Author: Lian Aparicio Service: ? Author Type: Physician Type: Progress Notes Filed: 10/17/2018 7:16 PM Note Text: [facility] - General Progress Note KAREN SOLIS : 1970 AGE: 48 SEX: F CSN: [id number] HOSP SVC: PS[facility] LOCATION: [facility] [place] ATTENDING PHYSICIAN: Bill Patten M.D. DATE OF [...] aerosol treatment. Lian Aparicio M.D. Internal Medicine JOYNER:[id number] /[id number] [facility] Protein mass conc HNO ID: [id number] Author: Downtime Note Service: ? Author Type: ? Type: Progress Notes Filed: 08/21/2018 5:27 AM Note Text: Epic Scheduled Downtime: 08/21/2018 1:00:00 AM to 08/21/2018 5:17:00 AM [facility] Toxicology Screen,Uron 08-21 Amphetamines, Urine Negative Normal Negative [facility] Comment on above: Result Comment: Cuto ff threshold at 1000 ng/mL. Performed By: #### U HCG, UAWMIC, UTOX2 #### [place] [phone] Barbiturates, Urine Negative Normal Negative [facility] Comment on above: Result Comment: Cuto ff threshold at 200 ng/mL. Performed By: #### U HCG, UAWMIC, UTOX2 #### [place] [phone] Benzodiazepines, Ur Negative Normal Negative [facility] Comment on above: Result Comment: Cuto ff threshold at 200 ng/mL. Performed By: #### U HCG, UAWMIC, UTOX2 #### [place] [address] Cannabinoids, Urine Negative Normal Negative [facility] Comment on above: Result Comment: Cuto ff threshold at 50 ng/mL. Performed By: #### U HCG, UAWMIC, UTOX2 #### [place] [phone] Cocaine, Urine Negative Normal Negative [facility] Comment on above: Result Comment: Cuto ff threshold at 300 ng/mL. Performed By: #### U HCG, UAWMIC, UTOX2 #### [place] [address] Ethanol, Urine 291 mg/dL High <11 [facility] Comment on above: Performed By: #### U HCG, UAWMIC, UTOX2 #### [place] [address] Opiates, Urine Negative Normal Negative [facility] Comment on above: Result Comment: Cuto ff threshold at 300 ng/mL. Performed By: #### U HCG, UAWMIC, UTOX2 #### [place] [address] Oxycodone, Urine Negative Normal Negative [facility] Comment on above: Result Comment: Cuto [...] on the same specimen through Client Services ([phone]) if contacted within 48 hours of initial testing. [1]Substance Abuse and Mental Health Services Administration (2012). Clinical Drug Testing in Primary Care Technical Assistance Publication Series 32. Department of Health and Human Services, [place], p.10. Performed By: #### U HCG, UAWMIC, UTOX2 #### [place] [address] Phencyclidine, Urine Negative Normal Negative [facility] Comment on above: Result Comment: Cuto ff threshold at 25 ng/mL. Performed By: #### U HCG, UAWMIC, UTOX2 #### [place] [address] Urinalysis with Microscopico n 08-21-2018 Bilirubin, Urine Negative Normal Negative [facility] Comment on above: Performed By: #### U HCG, UAWMIC, UTOX2 #### [place] [address] Cast SEE COMMENT Normal 0 [facility] Comment on above: Result Comment: 0 Performed By: #### U HCG, UAWMIC, UTOX2 #### [place] [address] Clarity Nom (U) Clear Normal Clear [facility] Comment on above: Performed By: #### U HCG, UAWMIC, UTOX2 #### [place] [address] Color Nom (U) Straw Critically abnormal Yellow [facility] Comment on above: Performed By: #### U HCG, UAWMIC, UTOX2 #### [place] [address] Epithelial cells LM.HPF #/area (Urine sed) SEE COMMENT Normal [facility] Comment on above: Result Comment: Squa mous 2-5 Performed By: #### U HCG, UAWMIC, UTOX2 #### [place] [address] Glucose Ql (U) Negative Normal Negative [facility] Comment on above: Performed By: #### U HCG, UAWMIC, UTOX2 #### [place] [address] Hemoglobin/Blood,Ur Trace Critically abnormal Negative [facility] Comment on above: Performed By: #### U HCG, UAWMIC, UTOX2 #### [place] [address] Ketones Ql (U) Negative Normal Negative [facility] Comment on above: Performed By: #### U HCG, UAWMIC, UTOX2 #### [place] [address] Leukest Trace Critically abnormal Negative [facility] Comment on above: Performed By: #### U HCG, UAWMIC, UTOX2 #### [place] [address] Nitrite Ql (U) Negative Normal Negative [facility] Comment on above: Performed By: #### U HCG, UAWMIC, UTOX2 #### [place] [address] pH (Bld) 6.0 Normal 4.5-8.0 [facility] Comment on above: Performed By: #### U HCG, UAWMIC, UTOX2 #### [place] [address] Protein mass conc (U) Negative Normal Negative [facility] Comment on above: Performed By: #### U HCG, UAWMIC, UTOX2 #### [place] [address] RBC #/vol (U) 0-3 Normal 0-3 [facility] Comment on above: Performed By: #### U HCG, UAWMIC, UTOX2 #### [place] [address] Specific Mobile, Ur <=1.005 Normal 1.005-1.030 [facility] Comment on above: Performed By: #### U HCG, UAWMIC, UTOX2 #### [place] [address] Urobilinogen Qn (U) 0.2 Normal 0.2-1.0 [facility] Comment on above: Performed By: #### U HCG, UAWMIC, UTOX2 #### [place] [address] WBC #/vol (Bld) 0-5 Normal 0-5 [facility] Comment on above: Performed By: #### U HCG, UAWMIC, UTOX2 #### [place] [address] HISTORY PHYSICALon 9 HISTORY PHYSICAL HNO ID: [id number] Author: Lian Aparicio Service: ? Author Type: Physician Type: HANDP Filed: 08/23/2018 4:01 PM Note Text: [facility] - History and Physical KAREN SOLIS : 1970 AGE: 48 SEX: F CSN: [id number] HOSP [facility]: [facility] LOCATION: [facility] [place] ATTENDING PHYSICIAN: NALINI NI ADMIT DATE: 08/20/2018 [...] - Chronic obstructive pulmonary disease (COPD) ([facility]) Social History Socioeconomic History Marital status: Spouse [...] reviewed and negative. [facility] Most recent images [...] F/u cmp Lian Aparicio M.D. Internal Medicine [facility] Vital Signs Date Time Vital Sign Value Performing Clinician Facility 11-06-2023 10:56-0400 Body height 170.18 cm [facility] 11-06-2023 10:56-0400 Body mass index (BMI) [Ratio] 23.6 kg/m2 [facility] 11-06-2023 10:56-0400 Body weight 68.49 kg [facility] 11-06-2023 10:56-0400 Diastolic blood pressure 76 mm[Hg] [facility] 11-06-2023 10:56-0400 Heart rate 72 /min [facility] 11-06-2023 10:56-0400 Respiratory rate 18 /min [facility] 11-06-2023 10:56-0400 SaO2% (BldA) [Mass fraction] 99 % [facility] 11-06-2023 10:56-0400 Systolic blood pressure 118 mm[Hg] [facility] 07-20-2023 13:15-0500 Body height 170.18 cm Isiah Purcell Other [facility] 07-20-2023 13:15-0500 Body mass index (BMI) [Ratio] 22.71 kg/m2 Isiah Purcell Other [employer] Other 07-20-2023 13:15-0500 Body weight 65.77 kg Isiah Purcell Other [facility] 06-10-2023 14:45-0500 Diastolic blood pressure 82 mm[Hg] DO Christin Grullon Work Phone: [facility] 06-10-2023 14:45-0500 Heart rate 70 /min DO Christin Grullon Work Phone: [facility] 12-20-2023 14:45-0500 Respiratory rate 16 /min DO Christin Grullon Work Phone: [facility] 06-10-2023 14:45-0500 SaO2% (BldA) [Mass fraction] 96 % DO Christin Grullon Work Phone: [facility] 06-10-2023 14:45-0500 Systolic blood pressure 132 mm[Hg] DO Christin Grullon Work Phone: [facility] 06-10-2023 12:17-0500 Body temperature 97.7 [degF] DO Christin Grullon Work Phone: [facility] 06-10-2023 12:17-0500 Inhaled oxygen flow rate 6 L/min DO Christin Grullon Work Phone: [facility] 06-10-2023 09:27-0500 Body height 167.64 cm DO Christin Grullon Work Phone: [facility] 06-10-2023 09:27-0500 Body mass index (BMI) [Ratio] 23.5 kg/m2 DO Christin Grullon Work Phone: [facility] 06-10-2023 09:27-0500 Body weight 66 kg DO Christin Grullon Work Phone: [facility] 05-25-2023 10:15-0500 Body height 170.18 cm Isiah Purcell Other [employer] Other 05-25-2023 10:15-0500 Body mass index (BMI) [Ratio] 23.02 kg/m2 Isiah Purcell Other [employer] Other 05-25-2023 10:15-0500 Body weight 66.68 kg Isiah Purcell Other [employer] Other 05-05-2023 09:20-0500 Diastolic blood pressure 74 mm[Hg] DO Christin Grullon Work Phone: [facility] 05-05-2023 09:20-0500 Heart rate 66 /min DO Christin Grullon Work Phone: [facility] 05-05-2023 09:20-0500 Respiratory rate 16 /min DO Christin Grullon Work Phone: [facility] 05-05-2023 09:20-0500 SaO2% (BldA) [Mass fraction] 100 % DO Christin Grullon Work Phone: [facility] 05-05-2023 09:20-0500 Systolic blood pressure 120 mm[Hg] DO Christin Grullon Work Phone: [facility] 05-05-2023 08:42-0500 Inhaled oxygen flow rate 3 L/min DO Christin Grullon Work Phone: [facility] 05-05-2023 07:59-0500 Body height 167.64 cm DO Christin Grullon Work Phone: [facility] 05-05-2023 07:59-0500 Body weight 63.5 kg DO Christin Grullon Work Phone: [facility] 03-17-2023 14:30-0400 Body height 170.18 cm Christin Mead Other [employer] Other 02-24-2023 14:20-0400 Body height 170.18 cm Clovis Andersen Other [employer] Other 02-24-2023 14:20-0400 Body mass index (BMI) [Ratio] 23.02 kg/m2 Clovis Andersen Other [employer] Other 02-24-2023 14:20-0400 Body weight 66.68 kg Clovis Andersen Other [employer] Other 02-24-2023 14:20-0400 Diastolic blood pressure 70 mm[Hg] Clovis Andersen Other [employer] Other 02-24-2023 14:20-0400 Systolic blood pressure 104 mm[Hg] Clovis Andersen Other [employer] Other 12-05-2022 12:00-0400 Body height 170.18 cm Christin Grullon Other [employer] Other 12-05-2022 12:00-0400 Body mass index (BMI) [Ratio] 20.83 kg/m2 Christin Grullon Other [employer] Other 12-05-2022 12:00-0400 Body weight 60.33 kg Christin Grullon Other [employer] Other 12-05-2022 12:00-0400 Diastolic blood pressure 62 mm[Hg] Christin Grullon Other [employer] Other 12-05-2022 12:00-0400 Respiratory rate 18 /min Christin Grullon Other [employer] Other 12-05-2022 12:00-0400 SaO2% (BldA) [Mass fraction] 98 % Christin Grullon Other [employer] Other 12-05-2022 12:00-0400 Systolic blood pressure 118 mm[Hg] Christin Grullon Other [employer] Other 09-26-2022 11:00-0400 Body height 170.18 cm Pratik Cross Other [employer] Other 09-26-2022 11:00-0400 Body mass index (BMI) [Ratio] 20.36 kg/m2 Pratik Cross Other [employer] Other 09-26-2022 11:00-0400 Body weight 58.97 kg Pratik Cross Other [employer] Other 07-16-2022 16:30-0500 Body height 170.18 cm Christin Grullon Other [employer] Other 07-16-2022 16:30-0500 Body mass index (BMI) [Ratio] 19.58 kg/m2 Christin Grullon Other [facility] [employer] Other 07-16-2022 16:30-0500 Body weight 56.7 kg Christin Grullon Other [employer] Other 07-16-2022 16:30-0500 Diastolic blood pressure 82 mm[Hg] Christin Grullon Other [employer] Other 07-16-2022 16:30-0500 Respiratory rate 18 /min Christin Grullon Other [employer] Other 07-16-2022 16:30-0500 SaO2% (BldA) [Mass fraction] 98 % Christin Grullon Other [employer] Other 07-16-2022 16:30-0500 Systolic blood pressure 136 mm[Hg] Christin Grullon Other [employer] Other 07-14-2022 11:00-0500 Body temperature 97.7 [degF] DO Christin Grullon Work Phone: [facility] 07-14-2022 11:00-0500 Diastolic blood pressure 75 mm[Hg] DO Christin Grullon Work Phone: [facility] 07-14-2022 11:00-0500 Heart rate 72 /min DO Christin Grullon Work Phone: [facility] 07-14-2022 11:00-0500 Respiratory rate 20 /min DO Christin Grullon Work Phone: [facility] 07-14-2022 11:00-0500 SaO2% (BldA) [Mass fraction] 98 % DO Christin Grullon Work Phone: [facility] 07-14-2022 11:00-0500 Systolic blood pressure 126 mm[Hg] DO Christin Grullon Work Phone: [facility] 07-10-2022 16:43-0500 Body weight 0 kg DO Christin Grullon Work Phone: [facility] 05-19-2022 14:15-0500 Body height 170.18 cm Christin Grullon Other [employer] Other 05-19-2022 14:15-0500 Body mass index (BMI) [Ratio] 19.73 kg/m2 Christin Grullon Other [employer] Other 05-19-2022 14:15-0500 Body weight 57.15 kg Christin Grullon Other [employer] Other 05-19-2022 14:15-0500 Diastolic blood pressure 77 mm[Hg] Christin Grullon Other [employer] Other 05-19-2022 14:15-0500 Respiratory rate 18 /min Christin Grullon Other [employer] Other 05-19-2022 14:15-0500 SaO2% (BldA) [Mass fraction] 99 % Christin Anoop Other [employer] Other 05-19-2022 14:15-0500 Systolic blood pressure 135 mm[Hg] Christin Grullon Other [employer] Other 05-01-2021 11:15-0500 Body height 170.18 cm Christin Grullon Other [employer] Other 05-01-2021 11:15-0500 Body mass index (BMI) [Ratio] 17.85 kg/m2 Christin Grullon Other [employer] Other 05-01-2021 11:15-0500 Body temperature 97.8 [degF] Christin Grullon Other [employer] Other 05-01-2021 11:15-0500 Body weight 51.71 kg Christin Grullon Other [employer] Other 05-01-2021 11:15-0500 Diastolic blood pressure 84 mm[Hg] Christin Grullon Other [employer] Other 05-01-2021 11:15-0500 Respiratory rate 16 /min Christin Grullon Other [employer] Other 05-01-2021 11:15-0500 SaO2% (BldA) [Mass fraction] 100 % Christin Grullon Other [employer] Other 05-01-2021 11:15-0500 Systolic blood pressure 128 mm[Hg] Christin Grullon Other [employer] Other 03-20-2021 14:15-0400 Body height 170.18 cm Christin Grullon Other [employer] Other 03-20-2021 14:15-0400 Body mass index (BMI) [Ratio] 18.32 kg/m2 Christin Grullon Other [employer] Other 03-20-2021 14:15-0400 Body temperature 99 [degF] Christin Grullon Other [employer] Other 03-20-2021 14:15-0400 Body weight 53.07 kg Christin Grullon Other [employer] Other 03-20-2021 14:15-0400 Diastolic blood pressure 84 mm[Hg] Christin Grullon Other [employer] Other 03-20-2021 14:15-0400 Respiratory rate 16 /min Christin Grullon Other [employer] Other 03-20-2021 14:15-0400 SaO2% (BldA) [Mass fraction] 98 % Christin Grullon Other [employer] Other 03-20-2021 14:15-0400 Systolic blood pressure 118 mm[Hg] Christin Grullon Other [employer] Other Encounters Encounter Date Encounter Type Care Provider Facility Start: 12-14-2023 End: 12-14-2023 ambulatory Damien Pastrana MD Facility:[facility] Start: 11-09-2023 End: 11-09-2023 ambulatory [facility] Work Phone: Start: 11-09-2023 End: 11-09-2023 Patient encounter procedure [facility] Work Phone: Start: 11-06-2023 End: 11-06-2023 ambulatory [facility] Work Phone: Start: 11-06-2023 End: 11-06-2023 Patient encounter procedure [facility] [place] Work Phone: Start: 10-14-2023 End: 10-14-2023 ambulatory [facility] Work Phone: Start: 10-14-2023 End: 10-14-2023 Patient encounter procedure [facility] Work Phone: Start: 10-14-2023 Non-patient / Non-visit [facility] Work Phone: Start: 09-30-2023 [facility]-patient [facility] Work [facility]: Start: 09-16-2023 End: 09-16-2023 ambulatory DO Christin Grullon Work Phone: [facility] Work Phone: Start: 09-16-2023 End: 09-16-2023 Patient encounter procedure DO Christin Grullon Work Phone: [facility] Work Phone: Start: 09-16-2023 Non-patient / Non-visit [facility] Work Phone: Start: 09-14-2023 Non-patient / Non-visit DO Ben Grullon Work Phone[facility] Work Phone: Start: 08-27-2023 End: 08-27-2023 Patient encounter procedure DO Christin Grullon Work Phone: [facility] [place] Work Phone: Start: 07-20-2023 End: 07-20-2023 ambulatory Isiah Purcell Other [employer] Other Start: 07-20-2023 Postop follow up vis it related to original px Isiah Purcell [facility] Start: 07-20-2023 End: 07-20-2023 Patient encounter procedure DO Christin Grullon Work Phone: [facility] Start: 06-24-2023 End: 06-24-2023 ambulatory Isiah Purcell Other [employer] Other Start: 06-24-2023 Telephone encounter Isiah Wilfredo [facility] Start: 06-23-2023 End: 06-23-2023 ambulatory Isiah Purcell Facility:[facility] Start: 06-23-2023 Postop follow up vis it related to original px Isiah Purcell [facility] Start: 06-23-2023 End: 06-23-2023 ambulatory DO Christin Grullon Work Phone: [facility] Work Phone: Start: 06-23-2023 End: 06-23-2023 Patient encounter procedure DO Christin Grullon Work Phone: [facility] Start: 06-23-2023 End: 06-23-2023 Patient encounter procedure DO Christin Grullon Work Phone: [facility] Work Phone: Start: 06-18-2023 End: 06-18-2023 ambulatory Isiah Purcell Other [employer] Other Start: 06-18-2023 Telephone encounter Isiah Purcell [facility] Start: 06-16-2023 End: 06-16-2023 ambulatory Julee Khan Other [employer] Other Start: 06-16-2023 Telephone encounter Julee Khan [facility] Start: 06-10-2023 End: 06-10-2023 ambulatory Isiah Purcell Facility:[facility] Start: 06-10-2023 End: 06-10-2023 Admission to same day surgery center DO Christin Grullon Work Phone: [facility] [place] Start: 06-09-2023 End: 06-09-2023 ambulatory Isiah Purcell Other [employer] Other Start: 06-09-2023 Telephone encounter Isiah Purcell [facility] Start: 06-08-2023 (Procedure) Short Christin Mead [facility] Start: 06-08-2023 End: 06-08-2023 ambulatory Christin Mead Other [employer] Other Start: 06-01-2023 End: 06-01-2023 ambulatory Isiah Purcell Facility:[facility] Start: 06-01-2023 End: 06-01-2023 ambulatory DO Christin Grullon Work Phone: [facility] Work Phone: Start: 06-01-2023 End: 06-01-2023 Patient encounter procedure DO Christin Grullon Work Phone: [facility] Work Phone: Start: 05-26-2023 End: 05-26-2023 ambulatory Christin Mead Other [employer] Other Start: 05-26-2023 Office outpatient vi sit 25 minutes Christin Mead [facility] [place] Start: 05-25-2023 End: 05-25-2023 ambulatory Isiah Purcell Other [employer] Other Start: 05-25-2023 Encounter by cresencio Grullon [facility] [place] Start: 05-25-2023 Encounter for other preprocedural examination Isiah Purcell [facility] Start: 05-25-2023 Office outpatient vi sit 40 minutes Isiah Purcell [facility] Start: 05-05-2023 (Procedure) Short Christin Mead [facility] Start: 05-05-2023 End: 05-05-2023 ambulatory Christin Alyce Facility:[facility] Start: 05-05-2023 End: 05-05-2023 Admission to same day surgery center DO Christin Grullon Work Phone: [facility] Work Phone: Start: 05-05-2023 End: 05-05-2023 ambulatory DO Christin Grullon Work Phone: [facility] Work Phone: Start: 05-04-2023 End: 05-04-2023 ambulatory Christin Alexparag Other [employer] Other Start: 05-04-2023 Telephone encounter Christin TAN G [facility] Start: 04-29-2023 End: 04-29-2023 ambulatory Pratik Cross Other [employer] Other Start: 04-29-2023 Office outpatient vi sit 25 minutes Pratik Cross [facility] Start: 04-03-2023 End: 04-03-2023 ambulatory Pratik Cross Other [employer] Other Start: 04-03-2023 Telephone encounter Pratik TAN G [facility] Start: 04-02-2023 End: 04-02-2023 ambulatory Christin Grullon Facility:[facility] Start: 04-02-2023 End: 04-02-2023 ambulatory DO Christin Grullon Work Phone: [facility] Work Phone: Start: 04-02-2023 End: 04-02-2023 Patient encounter procedure DO Christin Grullon Work Phone: [facility] [address] Work Phone: Start: 03-17-2023 End: 03-17-2023 ambulatory Christin Mead Other [employer] Other Start: 03-17-2023 Office outpatient ne w 45 minutes Christin Mead [facility] [place] Start: 03-17-2023 Telephone encounter Christin Reyes [employer] Start: 02-24-2023 End: 02-24-2023 ambulatory Gwendolyn Santillanoll Facility:[facility] Start: 02-24-2023 End: 02-24-2023 Patient encounter procedure DO Christin Grullon Work Phone: [facility] [address] Work Phone: Start: 02-24-2023 End: 02-24-2023 ambulatory DO Christin Grullon Work Phone: [facility] Work Phone: Start: 02-24-2023 Office outpatient ne w 30 minutes Clovis Andersen [facility] Start: 12-31-2022 End: 12-31-2022 ambulatory Christin Grullon Other [employer] Other Start: 12-31-2022 Telephone encounter Christin Reyes [facility] [place] Start: 12-22-2022 End: 12-22-2022 ambulatory Christin Grullon Other [employer] Other Start: 12-22-2022 Telephone encounter Christin Reyes [facility] [place] Start: 12-05-2022 End: 12-05-2022 ambulatory Christin Grullon Other [employer] Other Start: 12-05-2022 Office outpatient vi sit 15 minutes Christin Grullon [facility] [place] Start: 09-26-2022 End: 09-26-2022 ambulatory Pratik Cross Other [employer] Other Start: 09-26-2022 Office outpatient ne w 45 minutes Pr[facility] Start: 09-24-2022 End: 09-24-2022 ambulatory Christin Grullon Facility:[facility] Start: 09-24-2022 End: 09-24-2022 ambulatory DO Christin Grullon Work Phone: [facility] Work Phone: Start: 09-24-2022 End: 09-24-2022 Patient encounter procedure DO Christin Grullon Work Phone: [facility] [address] Work Phone: Start: 07-31-2022 End: 07-31-2022 ambulatory Christin Grullon Other [employer] Other Start: 07-31-2022 Telephone encounter Christin Reyes [facility] [place] Start: 07-30-2022 End: 07-30-2022 ambulatory Christin Grullon Facility:[facility] Start: 07-30-2022 End: 07-30-2022 ambulatory DO Christin Grullon Work Phone: [facility] Work Phone: Start: 07-30-2022 End: 07-30-2022 Patient encounter procedure DO Christin Grullon Work Phone: [facility] [address] Work Phone: Start: 07-21-2022 Encounter for preprocedural laboratory examination CINDY RODRIGEZ [facility] Start: 07-21-2022 End: 07-21-2022 ambulatory CINDY RODRIGEZ Facility:[facility] Start: 07-18-2022 End: 07-19-2022 ambulatory CINDY RODRIGEZ Facility:[facility] Start: 07-18-2022 End: 07-19-2022 Encounter for preprocedural laboratory examination CINDY RODRIGEZ Facility:[facility] Start: 07-16-2022 End: 07-16-2022 ambulatory Christin Grullon Other [employer] Other Start: 07-16-2022 Office outpatient vi sit 25 minutes Christin AGUILAR [facility] Start: 07-14-2022 End: 07-15-2022 ambulatory Jose Itzkonhtz Facility:[facility] Start: 07-14-2022 End: 07-14-2022 Admission to same day surgery center DO Christin Grullon Work Phone: [facility] Start: 07-14-2022 End: 07-14-2022 ambulatory DO Christin Grullon Work Phone: [facility] Work Phone: Start: 07-11-2022 End: 07-12-2022 ambulatory CINDY Stone [facility] Facility: Start: 07-10-2022 End: 07-10-2022 ambulatory Jose Carlton Facility:[facility] Start: 07-10-2022 End: 07-10-2022 ambulatory DO Christin Grullon Work Phone: [facility] Work Phone: Start: 07-10-2022 End: 07-10-2022 Patient encounter procedure DO Christin Grullon Work Phone: [facility] Work Phone: Start: 07-08-2022 End: 07-08-2022 Patient encounter procedure DO Christin Grullon Work Phone: [facility] Work Phone: Start: 07-08-2022 End: 07-08-[address] [facility] [email or web address] Other Start: 07-08-2022 Telephone encounter Christin Reyes [facility] [place] Start: 07-04-2022 End: 07-05-2022 ambulatory CINDY Stone [facility] Facility:[facility] Start: 06-30-2022 End: 06-30-2022 ambulatory Christin Grullon Other [employer] Other Start: 06-30-2022 Telephone encounter Christin Reyes [facility] [place] Start: 06-25-2022 End: 06-26-2022 ambulatory CINDY Stone [facility] Facility:[facility] Start: 06-24-2022 End: 06-24-2022 ambulatory Christin Grullon Other [employer] Other Start: 06-24-2022 Telephone encounter Christin Reyes [facility] [place] Start: 06-19-2022 End: 06-19-2022 Patient encounter procedure DO Christin Grullon Work Phone: [facility] Work Phone: Start: 06-03-2022 End: 06-03-2022 ambulatory Christin Grullon Other [employer] Other Start: 06-03-2022 Telephone encounter Christin Reyes [facility] [place] Start: 05-28-2022 End: 05-29-2022 ambulatory CINDY Stone [facility] Facility:[facility] Start: 05-20-2022 End: 05-20-2022 ambulatory Christin Grullon Other [employer] Other Start: 05-20-2022 Telephone encounter Christin Reyes [facility] [place] Start: 05-19-2022 Office outpatient vi sit 15 minutes Christin AGUILAR [facility] [place] Start: 05-19-2022 End: 05-19-2022 ambulatory DO Christin Grullon Work Phone: [employer] Other Start: 05-19-2022 End: 05-19-2022 Patient encounter procedure DO Christin Grullon Work Phone: [facility] Start: 04-30-2022 End: 05-01-2022 ambulatory CINDY RODRIGEZ Facility:[facility] Start: 04-14-2022 ambulatory CINDY RODRIGEZ Faci lity:[facility] Start: 04-09-2022 End: 04-10-2022 ambulatory CINDY RODRIGEZ Facility:[facility] Start: 03-27-2022 End: 03-28-2022 ambulatory CORWIN LYEN Facility:[facility] Start: 03-06-2022 End: 03-07-2022 ambulatory CHRISTIN GRULLON Facility:[facility] Start: 02-28-2022 End: 02-28-2022 ambulatory CHRISTIN GRULLON Facility:[facility] Start: 02-20-2022 End: 02-21-2022 ambulatory CORWIN DAYAN Facility:[facility] Start: 02-13-2022 End: 02-13-2022 ambulatory CINDY RODRIGEZ Facility:[facility] Start: 02-10-2022 End: 02-11-2022 ambulatory CINDY RODRIGEZ Facility:[facility] Start: 02-04-2022 Encounter for preprocedural cardiovascular examination [facility] Bertha [facility] Start: 02-04-2022 Encounter for preprocedural laboratory examination [facility] Start: 02-03-2022 End: 02-04-2022 ambulatory CINDY RODRIGEZ Facility:[facility] Start: 02-03-2022 End: 02-04-2022 Encounter for preprocedural cardiovascular examination CINDY RODRIGEZ Facility:[facility] Start: 01-08-2022 End: 01-09-2022 ambulatory CORWIN HANLEY Facility:[facility] Start: 12-27-2021 End: 12-28-2021 ambulatory CORWIN LYEN Facility:[facility] Start: 12-04-2021 End: 12-05-2021 ambulatory CINDY RODRIGEZ Facility:[facility] Start: 11-08-2021 End: 11-08-2021 ambulatory Christin Grullon Other [employer] Other Start: 11-08-2021 Telephone encounter Christin Reyes [facility] [place] Start: 05-01-2021 End: 05-01-2021 ambulatory Christin Grullon Other [employer] Other Start: 05-01-2021 Office outpatient vi sit 15 minutes Christin Grullon [facility] [place] Start: 04-18-2021 Telephone encounter Christin Grullon [facility] [place] Start: 03-20-2021 Office outpatient vi sit 15 minutes Christin Grullon [facility] [place] Start: 08-28-2018 End: 09-20-2018 Patient encounter procedure CHRISTINE Jones [facility] Start: 08-21-2018 End: 08-27-2018 Evaluation and management of inpatient [facility] Procedures Date Procedure Procedure Detail Performing Clinician Start: 06-23-2023 Plain X-ray of left shoulder DO Christin Grullon Work Phone: Start: 06-10-2023 OR Shoulder Arthro RCR/Biceps Tendon (Left) DO Christin Grullon Work Phone: Start: 05-05-2023 Local anesthetic lum bar facet joint nerve block DO Christin Grullon Work Phone: Start: 04-02-2023 MRI of left shoulder DO Christin Grullon Work Phone: Start: 02-24-2023 Radiography of thora cic spine DO Christin Grullon Work Phone: Start: 09-24-2022 MRI of cervical spin e without contrast DO Christin Grullon Work Phone: Start: 09-24-2022 XR pre/post mri xray DO Christin Grullon Work Phone: Start: 07-30-2022 MRI of head DO Christin Grullon Work Phone: Start: 07-14-2022 Mammography of right breast [...] Date Care Activity Detail Author Start: 06-10-2023 [facility] Start: 06-10-2023 [facility] Start: 05-05-2023 [facility] Adenosine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
[2024-02-01 07:09] VITALS: TEMP 36.2
[2024-02-01 07:18] VITALS: BP 125/78; PULSE 67; TEMP 36.2; O2SAT 100
[2024-02-01] MEDS: 0.9 % SODIUM CHLORIDE 500 ML IV (07:25)
[2024-02-01] MEDS: 0.9 % SODIUM CHLORIDE 10 ML INJ (07:51)
[2024-02-01] MEDS: BUPIVACAINE HCL 0.25% PF 25 MG/10 ML VIAL 5 ML INJ (07:52)
[2024-02-01] MEDS: TRIAMCINOLONE ACETONIDE 40 MG/ML VIAL INJ (07:52)
[2024-02-01] MEDS: IOHEXOL 240 MG/ML - 10 ML VIAL INJ (07:53)
[2024-02-01] MEDS: LIDOCAINE HCL 2% PF 100 MG/5 ML VIAL INJ (07:53)
--- NOTE | 2024-02-01 07:56 | W.PM.PROCNOT ---
Date of procedure: 02/01/24 Pre-op diagnosis: Complex regional pain syndrome, left lower extremity Post-op diagnosis: same as pre-op Procedure: Procedure: Left lumbar sympathetic nerve block Medications: Bupivacaine 0.25% 4cc, normal saline 0.9% 4cc, kenalog 80mg The patient was seen and examined in the preoperative holding area.? Informed consent was obtained and placed on the chart.? Patient was brought to the medical procedure unit and placed in the prone position where a timeout was completed verifying the correct patient, procedure site, position, and planned special equipment using sterile aseptic technique.? Under direct fluoroscopic visualization a 25-gauge Quincke tipped spinal needle was advanced to the left anterolateral aspect of the L3 vertebral body where Omnipaque dye was injected to show adequate spread.? There was no evidence of vascular or neurologic uptake.? The above-mentioned injectate was then placed in five 2 mL aliquots preceded by negative aspiration. The needle was removed and the surgery site was covered. The same procedure, with the same steps, was then completed on the opposite side. Patient was taken to the postprocedural recovery area and monitored for an appropriate length of time before found suitable for discharge in the accompaniment of a responsible adult. Anesthesia: MAC Surgeon: Damien Pastrnaa Pathology: none sent Condition: stable Disposition: no change
[2024-02-01 07:58] VITALS: BP 109/63; PULSE 64; O2SAT 100
[2024-02-01 08:03] VITALS: BP 116/63; PULSE 62; O2SAT 99
== END 2024-02-01 08:24 | disposition home or self-care (01) ==
LOC: SURGOUT 07:00
PROVIDERS: PCP Family Medicine; Visit Provider Anesthesiology
PROC: (CPT 1992; principal; 2024-02-01 07:50)
DX: G90.522 Complex regional pain syndrome I of left lower limb (principal)
CPT/HCPCS: 64520; 77002; J0665; J2704; J3301; Q9966

== ENCOUNTER 2024-02-15 06:05 | Day surgery (SDC) | payer OTHER, SELFPAY ==
--- OUTSIDE RECORDS SUMMARY | 2024-02-15 06:08 | XMS_ITS | CCD ---
Author Organization [facility] Care Team Providers Care Reject Opener Name Role Phone CHRISTINE TOBIAS Admitting Unavailable CHRISTINE TOBIAS Attending Unavailable NALINI NI Admitting Unavailable LIAN APARICIO Consulting Unavailable BILL PATTEN Attending Unavailable Christin Grullon Unavailable Anoop, Christin Unavailable Anoop, Christin Unavailable DO Christin Grullon Primary Care Provider DO Christin Grullon Attending Provider DO Jose Vincent Attending Provider CINDY RODRIGEZ Admitting Unavailable CINDY RODRIGEZ Attending Unavailable CHRISTIN GRULLON [facility] Unavailable MATEWAN, DR STERLING Reid Consulting Unavailable CINDY RODRIGEZ Consulting Unavailable CINDY RODRIGEZ Admitting Unavailable CINDY RODRIGEZ Attending Unavailable CHRISTIN GRULLON [facility] Care Unavailable CINDY RODRIGEZ Consulting Unavailable JONATAN STINSON Consulting Unavailable CINDY RODRIGEZ Admitting Unavailable CINDY RODRIGEZ Attending Unavailable CHRISTIN GRULLON Primary [facility] Unavailable MATEWAN, DR STERLING Reid Consulting Unavailable CINDY RODRIGEZ Consulting Unavailable CINDY RODRIGEZ Admitting Unavailable CINDY RODRIGEZ Attending Unavailable CHRISTIN GRULLON [facility] Care Unavailable CINDY RODRIGEZ Consulting Unavailable JONATAN STINSON Consulting Unavailable CINDY RODRIGEZ Admitting Unavailable CINDY RODRIGEZ Attending Unavailable CHRISTIN GRULLON [facility] Care Unavailable CINDY RODRIGEZ Consulting Unavailable CHRISTIN GRULLON [facility] Unavailable ALONSO ., GRETCHEN Admitting Unavailable GRETCHEN WEINER Attending Unavailable ROSALIA MATTHEW Consulting Unavailabl e CINDY RODRIGEZ Admitting Unavailable CINDY RODRIGEZ [facility] WEST, DR STERLING Reid Consulting Unavailable DAYAN, CORWIN Admitting Unavailable DAYAN, CORWIN Attending Unavailable DAYAN, CORWIN Consulting Unavailable DAYAN, CORWIN Admitting Unavailable DAYAN, CORWIN Attending Unavailable [facility] Unavailable ZIEBER, DR HUNG Story Consulting Unavailable DAYAN, CORWIN Consulting Unavailable HIGHLANDER, CINDY Stone Admitting Unavailable HIGHLANDER, CINDY Stone Attending [facility] ZIEBER, DR HUNG Story Consulting Unavailable HIGHLANDERCINDY Consulting Unavailable HIGHLANDER, CINDY Stone Admitting Unavailable HIGHLANDER, CINDY Stone Attending [facility] WEST, DR STERLING Reid Consulting Unavailable HIGHLANDERCINDY Consulting Unavailable DAYAN, CORWIN Admitting Unavailable DAYAN, CORWIN Attending [facility] DAYAN, CORWIN Consulting Unavailable DAYAN, CORWIN Admitting Unavailable DAYAN, CORWIN Attending [facility] ZIEBER, DR HUNG Story Consulting Unavailable DAYAN, CORWIN Consulting Unavailable HIGHLANDER, CINDY Stone Admitting Unavailable HIGHLANDER, CINDY Stone Attending [facility] Un[facility] ZIEBER, DR HUNG Story Consulting Unavailable HIGHLANDERCINDY Consulting Unavailable HIGHLANDER, CINDY Stone Admitting Unavailable HIGHLANDER, CINDY Stone Attending [facility] ZIEBER, DR HUNG Story Consulting Unavailable HIGHLANDERCINDY Consulting Unavailable Roxanna Nielsen Consulting Unavailable JAVIER ., ANTONIO SEPULVEDA Consulting Unavailable MONALISA CHERY Consulting Unavailable CYRIL PAYNE Consulting Unavailable ELIA, CINDY Stone Admitting Unavailable HIGHLANDER, CINDY Stone Attending [facility] ZIEBER, DR HUNG Story Consulting Unavailable HIGHLANDERCINDY Consulting Unavailable DAYAN, CORWNI Admitting Unavailable DAYAN, CORWIN Attending Unavailable [facility] WEST, DR STERLING Reid Consulting Unavailable DAYAN, CORWIN Consulting Unavailable TEDANDER, CINDY Stone Admitting Unavailable HIGHLANDER, CINDY Stone Attending Unavailable [facility] Unavailable ZIEBER, DR HUNG Story Consulting Unavailable HIGHLCINDY STARR Consulting Unavailable EDOUARD TEAGUE Consulting Unavailable JAVIER ., ANTONIO SEPULVEDA Consulting Unavailable ANTONIO BEACH Consulting Unavailable HIGHLANDER, CINDY Stone Admitting Unavailable HIGHLANDER, CINDY Stone Attending Unavailable GRULLON, CHRISTIN Primary Care Unavailable CINDY RODRIGEZ Consulting Unavailable Anoop, Christin R Primary Care Provider Anoop, DO Bowers R Attending Provider [phone] DO Jose Vincent Attending Provider [phone] RONAL Hinkle Attending Provider Pratik Cross Unavailable Anoop, DO Bowers R Primary Care Provider IMLAN Barron-ROAD ENGINE[employer] FREIGHT-Magdy Plummer Attending Provider Clovis Andersen Unavailable Christin Mead Unavailable DO Pratik Cross Attending Provider Anoop, DO Bowers R Primary Care Provider MILAN Barron-[facility]-Magdy Plummer Attending Provider DO Pratik Cross Attending Provider [phone] MD Christin Mead Attending Provider [phone] Isiah Purcell Unavailable Anoop, DO Bowers R Primary Care Provider DO Isiah Purcell Attending Provider Julee Khan Unavailable Anoop, Christin R Primary Care Unavailable Grullon, Christin R Admitting Unavailable Grullon, Christin R Attending Unavailable Jose Vincent Attending Unavailable Jose Vincent Admitting Unavailable Grullon, Christin R Primary Care Unavailable Isiah Purcell Attending Unavailable Isiah Purcell Admitting Unavailable Grullon, Christin R Primary Care Unavailable Christin Mead Attending Unavailable Christin Mead Admitting Unavailable Grullon, Christin R Primary Care Unavailable Jose Vincent Attending Unavailable Carlton, Jose Admitting Unavailable Grullon, Christin R Primary Care Unavailable Grullon, Christin R Admitting Unavailable Grullon, Christin R Attending Unavailable Grullon, Christin R Primary Care Unavailable Isiah Purcell Attending Unavailable Isiah Purcell Admitting Unavailable Grullon, Christin R Primary Care Unavailable Wilfredo, Isiah A Attending Unavailable Isiah Pucrell Admitting Unavailable Christin Grullon Primary Care Unavailable [...] Penicillins; Translations: [Penicillins] Allergy to substance 2021 [facility] (1 source) Penicillin Drug Allergy 06-22-2020 [facility] Repository Medications Current Medications Medication Drug Class(es) [...] every 6 hrs for 5 days OSVALDO: [id number] Jun, Active Start: 04-29-2023 take 1 tablet [...] 11-04-2023 Chronic Other aftercare (1 source) 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; Translations: [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] Onset: 07-22-2022 Episodic Other [...] min 2V*on XR shoulder LT min 2V* [facility] [address] [place] [address] XRay Report Signed Patient: Karen Solis MR#: [id number] 01 : 1970 Acct:[id number] Age/Sex: 53 / F ADM Date: 06/23/23 Loc: [facility] Room: Type: [facility] Attending Dr: Isiah Purcell DO Copies to: [...] Umesh Perez M.D.06/23/2023 3:46 PM Dictation Location: [place] [address] Transcribed By: [facility] 06/23/23 1546 Dictated By: Umesh Perez DO 06/23/23 1545 Signed By: 06/23/23 1546 Normal [facility] XR shoulder LT min 2V* [facility] [employer] Other XR shoulder LT min 2V* [facility] [employer] Other XR shoulder LT min 2V* [address] [facility] [employer] Other XR shoulder LT min 2V* [place] [address] [facility] [employer] Other XR shoulder LT min 2V* XRay Report N [facility] [employer] Other XR shoulder LT min 2V* [facility] min [facility]* Patient: Karen Solis MR#: [id number] [employer] Other XR shoulder LT min 2V* 01 No rt [employer] Other XR shoulder LT min 2V* : 1970 Acct:[id number] [employer] Other XR shoulder LT min 2V* Age/Sex: 53 / F A DM Date: 06/23/23 [employer] Other XR shoulder LT min 2V* Loc: [facility]XD Room: Type: [facility] [employer] Other XR shoulder LT min 2V* Attending Dr: Juan Purcell DO [employer] Other XR shoulder LT min 2V* Copies to: Isiah Purcell DO [employer] Other XR shoulder LT min 2V* Ordering Provider : Isiah Purcell DO [employer] Other XR shoulder LT min 2V* Date of Service: 06/23/23 [employer] Other XR shoulder LT min 2V* XR/XR shoulder LT min 2V*: Status post arthroscopy of left shoulder [employer] Other XR shoulder LT min 2V* 3 views LEFT shoulder plain film [employer] Other XR shoulder LT min 2V* HISTORY: Status post LEFT shoulder surgery [employer] Other XR shoulder LT min 2V* COMPARISON: None [employer] Other XR shoulder LT min 2V* ACUTE FINDINGS: None [employer] Other XR shoulder LT min 2V* DEGENERATIVE CHANGE: Unremarkable [employer] Other XR shoulder LT min 2V* SOFT TISSUE FINDINGS: Unremarkable [employer] Other XR shoulder LT min 2V* JOINT EFFUSION: None [employer] Other XR shoulder LT min 2V* POSTOP CHANGES: Resection changes of the acromion/clavicle present. No complication. [employer] Other XR shoulder LT min 2V* BONY MINERALIZATION: Adequate [employer] Other XR shoulder LT min 2V* 7 XR/XR shoulder LT min 2V* [employer] Other XR shoulder LT min 2V* IMPRESSION: Unremarkable postsurgical change. [employer] Other XR shoulder LT min 2V* Impression dictat ed by: Umesh Perez M.D.06/23/2023 3:46 PM [employer] Other XR shoulder LT min 2V* Dictation Locatio n: [facility] [employer] Other XR shoulder LT min 2V* Transcribed By: Danilo HUNTER 06/23/23 154 [employer] Other XR shoulder LT min 2V* Dictated By: Umesh Perez DO 06/23/23 154 [employer] Other XR shoulder LT min 2V* Signed By: Abbi rt [employer] [place] Other XR shoulder LT min 2V* 06/23/23 [facility] [employer] Other Alanine aminotransferase [En zymatic activity/volume] in Serum or PlasmaOrdered By: Isiah Purcell on 06-01-2023 ALT [Catalytic activity/Vol] 6 U/L 7-52 [facility] Albumin [Mass/volume] in Ser um or Plasma by Bromocresol green (BCG) dye binding methoOrdered By: Isiah Purcell on 06-01-2023 Albumin BCG dye [Mass/Vol] 4.2 g/dL 3.5-5.7 [facility] Alkaline phosphatase [Enzyma tic activity/volume] in Serum or PlasmaOrdered By: Isiah Purcell on 06-01-2023 ALP [Catalytic activity/Vol] 123 U/L 34-104 [facility] Aspartate aminotransferase [ Enzymatic activity/volume] in Serum or PlasmaOrdered By: Isiah Purcell on 06-01-2023 AST [Catalytic activity/Vol] 10 U/L 13-39 [facility] Basophils Auto (Bld) [#/Vol] Ordered By: Isiah Purcell on 06-01-2023 Basophils (Bld) [#/Vol] 0.1 10*3/uL 0.0-0.2 [facility] Basophils/100 WBC Auto (Bld) Ordered By: Isiah Purcell on 06-01-2023 Basophils/100 WBC (Bld) 1.4 % . F [facility] Bilirubin.total [Mass/volume ] in Serum or PlasmaOrdered By: Isiah Purcell on 06-01-2023 Bilirubin [Mass/Vol] 0.3 mg/dL 0.3-1.0 [facility] CMP with reflex to A1Con Albumin [Mass/Vol] 4.2 g/dL Normal 3.5-5.7 [facility] Comment on above: Performed By: #### C MP wRFX A1C, CBC #### [facility] [address] Albumin/Globulin [Mass ratio] 1.8 {ratio} Normal [facility] Comment on above: Performed By: #### C MP wRFX A1C, CBC #### [facility] [address] ALP [Catalytic activity/Vol] 123 U/L High 34-104 [facility] Comment on above: Result Comment: PERF ORMED BY: [facility] [address] [place] [address] PATHOLOGIST LINE DEPARTMENT SUPERVISOR CARLOTTA OLSEN M.D. Performed By: #### C MP wRFX A1C, CBC #### [facility] [address] ALT [Catalytic activity/Vol] 6 U/L Low 7-52 [facility] Comment on above: Performed By: #### C MP wRFX A1C, CBC #### [facility] [address] [place] [id number] [place] Anion gap [Moles/Vol] 10.2 mmol/L Normal 6.0-15.0 [facility] Comment on above: Performed By: #### C MP wRFX A1C, CBC #### [facility] [address] AST [Catalytic activity/Vol] 10 U/L Low 13-39 [facility] Comment on above: Performed By: #### C MP wRFX A1C, CBC #### [facility] [address] Bilirubin [Mass/Vol] 0.3 mg/dL Normal 0.3-1.0 [facility] Comment on above: Performed By: #### C MP wRFX A1C, CBC #### [facility] [address] Calcium [Mass/Vol] 9.6 mg/dL Normal 8.6-10.3 [facility] Comment on above: Performed By: #### C MP wRFX A1C, CBC #### [facility] [address] Chloride [Moles/Vol] 105 mmol/L Normal 98-107 [facility] Comment on above: Performed By: #### C MP wRFX A1C, CBC #### [facility] [address] [place] [address] [place] CO2 [Moles/Vol] 29.0 mmol/L Normal 21.0-31.0 [facility] Comment on above: Performed By: #### C MP wRFX A1C, CBC #### [facility] [address] [place] [address] [place] Creatinine [Mass/Vol] 0.84 mg/dL Normal 0.60-1.20 [facility] Comment on above: Performed By: #### C MP wRFX A1C, CBC #### [facility] [address] [place] [address] [place] GFR/1.73 sq M.predicted MDRD (S/P/Bld) [Vol rate/Area] mL/min/{1.73_m2} Normal [facility] Comment on above: Performed By: #### C MP wRFX A1C, CBC #### [facility] [address] [place] [id number] [place] Globulin (S) [Mass/Vol] 2.4 g/dL Normal F [facility] Comment on above: Performed By: #### C MP wRFX A1C, CBC #### [facility] [address] Glucose [Mass/Vol] 77 mg/dL Normal 70-100 [facility] Comment on above: Performed By: #### C MP wRFX A1C, CBC #### [facility] [address] Potassium [Moles/Vol] 4.2 mmol/L Normal 3.5-5.1 [facility] Comment on above: Performed By: #### C MP wRFX A1C, CBC #### [facility] [address] [place] [address] [place] Protein [Mass/Vol] 6.6 g/dL Normal 6.4-8.9 [facility] Comment on above: Performed By: #### C MP wRFX A1C, CBC #### [facility] [address] [place] [id number] [place] Sodium [Moles/Vol] 140 mmol/L Normal 136-145 [facility] Comment on above: Performed By: #### C MP wRFX A1C, CBC #### [facility] [address] [place] [id number] [place] Urea nitrogen [Mass/Vol] 7 mg/dL Normal 7-25 [facility] Comment on above: Performed By: #### C MP wRFX A1C, CBC #### [facility] [address] [place] [id number] [place] Calcium [Mass/volume] in Ser um or PlasmaOrdered By: Isiah Purcell on 06-01-2023 Calcium [Mass/Vol] 9.6 mg/dL 8.6-10.3 [facility] Carbon dioxide, total [Moles /volume] in Serum or PlasmaOrdered By: Isiah Purcell on 06-01-2023 CO2 [Moles/Vol] 29.0 mmol/L 21.0-31.0 [facility] Chloride [Moles/volume] in S migue or PlasmaOrdered By: Isiah Purcell on 06-01-2023 Chloride [Moles/Vol] 105 mmol/L 98-107 [facility] Complete Blood Count Auto Di ffon 06-01-2023 Basophils (Bld) [#/Vol] 0.1 10*3/uL Normal 0.0-0.2 [facility] Comment on above: Result Comment: PERF ORMED BY: [place] [address] PATHOLOGIST LINE DEPARTMENT SUPERVISOR CARLOTTA OLSEN M.D. Performed By: #### C MP wRFX A1C, CBC #### [facility] [address] Basophils/100 WBC (Bld) 1.4 % Normal . F [facility] Comment on above: Performed By: #### C MP wRFX A1C, CBC #### [facility] [address] [place] [address] [place] Eosinophils (Bld) [#/Vol] 0.1 10*3/uL Normal 0.0-0.45 [facility] Comment on above: Performed By: #### C MP wRFX A1C, CBC #### [facility] [address] [place] [address] [place] Eosinophils/100 WBC (Bld) 1.8 % Normal . [facility] Comment on above: Performed By: #### C MP wRFX A1C, CBC #### [facility] [address] [place] [address] [place] Erythrocyte distribution width (RBC) [Ratio] 13.4 % Normal 11.9-15.3 [facility] Comment on above: Performed By: #### C MP wRFX A1C, CBC #### [facility] [address] Hematocrit (Bld) [Volume fraction] 40.1 % Normal 34.0-46.4 [facility] Comment on above: Performed By: #### C MP wRFX A1C, CBC #### [facility] [address] Hemoglobin (Bld) [Mass/Vol] 13.7 g/dL Normal 11.8-15.4 [facility] Comment on above: Performed By: #### C MP wRFX A1C, CBC #### [facility] [address] Lymphocytes (Bld) [#/Vol] 1.5 10*3/uL Normal 1.00-4.8 [facility] Comment on above: Performed By: #### C MP wRFX A1C, CBC #### [facility] [address] Lymphocytes/100 WBC (Bld) 20.3 % Normal . [facility] Comment on above: Performed By: #### C MP wRFX A1C, CBC #### [address] MCH (RBC) [Entitic mass] 30.3 pg Normal 24.7-34.3 [facility] Comment on above: Performed By: #### C MP wRFX A1C, CBC #### [facility] [address] [place] [address] [place] MCV (RBC) [Entitic vol] 88.8 fL Normal 80-[address] [facility] Comment on above: Performed By: #### C MP wRFX A1C, CBC #### [address] Mean Corpuscular HGB Conc 34.1 g/dL Normal 32.0-35.0 [facility] Comment on above: Performed By: #### C MP wRFX A1C, CBC #### [facility] [address] [place] [address] [place] Monocytes (Bld) [#/Vol] 0.6 10*3/uL Normal 0.0-0.8 [facility] Comment on above: Performed By: #### C MP wRFX A1C, CBC #### [facility] [address] [place] [address] [place] Monocytes/100 WBC (Bld) 8.7 % Normal . F [facility] Comment on above: Performed By: #### C MP wRFX A1C, CBC #### [facility] [address] Neutrophils (Bld) [#/Vol] 5.0 10*3/uL Normal 1.8-7.7 [facility] Comment on above: Performed By: #### C MP wRFX A1C, CBC #### [facility] [address] [place] [address] Neutrophils/100 WBC (Bld) 67.8 % Normal . [facility] Comment on above: Performed By: #### C MP wRFX A1C, CBC #### [address] NRBC% 0.0 /100{WBC} Normal 0-0.5 [facility] Comment on above: Performed By: #### C MP wRFX A1C, CBC #### [address] Platelet mean volume (Bld) [Entitic vol] 8.2 fL Normal 6.3-10.7 [facility] Comment on above: Performed By: #### C MP wRFX A1C, CBC #### [address] Platelets (Bld) [#/Vol] 377 10*3/uL Normal 150-450 [facility] Comment on above: Performed By: #### C MP wRFX A1C, CBC #### [facility] [address] [place] [address] RBC (Bld) [#/Vol] 4.52 10*6/uL Normal 3.60-5.00 [facility] Comment on above: Performed By: #### C MP wRFX A1C, CBC #### [address] WBC (Bld) [#/Vol] 7.3 10*3/uL Normal 3.8-11.6 [facility] Comment on above: Performed By: #### C MP wRFX A1C, CBC #### [address] [place] [address] [facility] Creatinine [Mass/volume] in Serum or PlasmaOrdered By: Isiah Purcell on 06-01-2023 Creatinine [Mass/Vol] 0.84 mg/dL 0.60-1.20 [facility] ECG 12 lead ECGon 06-01-2023 ECG 12 lead ECG [facility] [place] [address] [place] [id number] Electrocardiograph Report Signed Patient: Karen Solis MR#: [id number] 01 : 1970 Acct:[id number] Age/Sex: 53 / F ADM Date: 06/01/23 Loc: Room: Type: [facility] Attending Dr: Isiah Purcell DO Ordering Provider: [...] Signed By Christin Brown MD 2138 Normal [facility] Eosinophils Auto (Bld) [#/Vo l]Ordered By: Isiah Purcell on 06-01-2023 Eosinophils (Bld) [#/Vol] 0.1 10*3/uL 0.0-0.45 [facility] Eosinophils/100 WBC Auto (Bl d)Ordered By: Isiah Purcell on 06-01-2023 Eosinophils/100 WBC (Bld) 1.8 % . [facility] Erythrocyte distribution wid th Auto (RBC) [Ratio]Ordered By: Isiah Purcell on 06-01-2023 Erythrocyte distribution width (RBC) [Ratio] 13.4 % 11.9-15.3 [facility] Globulin Calc (S) [Mass/Vol] Ordered By: Isiah Purcell on 06-01-2023 Globulin (S) [Mass/Vol] 2.4 g/dL [facility] Glucose [Mass/volume] in Ser um or PlasmaOrdered By: Isiah Purcell on 06-01-2023 Glucose [Mass/Vol] 77 mg/dL 70-100 [facility] Hematocrit Auto (Bld) [Volum e fraction]Ordered By: Isiah Purcell on 06-01-2023 Hematocrit (Bld) [Volume fraction] 40.1 % 34.0-46.4 [facility] Hemoglobin [Mass/volume] in BloodOrdered By: Isiah Purcell on 06-01-2023 Hemoglobin (Bld) [Mass/Vol] 13.7 g/dL 11.8-15.4 [facility] Leukocytes [#/volume] correc lizbet for nucleated erythrocytes in Blood by Automated counOrdered By: Isiah Purcell on 06-01-2023 WBC corrected for nucl RBC Auto (Bld) [#/Vol] 7.3 10*3/uL 3.8-11.6 [facility] Lymphocytes Auto (Bld) [#/Vo l]Ordered By: Isiah Purcell on 06-01-2023 Lymphocytes (Bld) [#/Vol] 1.5 10*3/uL 1.00-4.8 [facility] Lymphocytes/100 WBC Auto (Bl d)Ordered By: Isiah Purcell on 06-01-2023 Lymphocytes/100 WBC (Bld) 20.3 % . [facility] MCH Auto (RBC) [Entitic mass ]Ordered By: Isiah Purcell on 06-01-2023 MCH (RBC) [Entitic mass] 30.3 pg 24.7-34.3 [facility] MCHC Auto (RBC) [Mass/Vol]Or dered By: Isiah Purecll on 06-01-2023 MCHC (RBC) [Mass/Vol] 34.1 g/dL 32.0-35.0 [facility] MCV Auto (RBC) [Entitic vol] Ordered By: Isiah Purcell on 06-01-2023 MCV (RBC) [Entitic vol] 88.8 fL 80-[address] [facility] Monocytes Auto (Bld) [#/Vol] Ordered By: Isiah Purcell on 06-01-2023 Monocytes (Bld) [#/Vol] 0.6 10*3/uL 0.0-0.8 [facility] Monocytes/100 WBC Auto (Bld) Ordered By: Isiah Purcell on 06-01-2023 Monocytes/100 WBC (Bld) 8.7 % . F [facility] Neutrophils Auto (Bld) [#/Vo l]Ordered By: Isiah Purcell on 06-01-2023 Neutrophils (Bld) [#/Vol] 5.0 10*3/uL 1.8-7.7 [facility] Neutrophils/100 WBC Auto (Bl d)Ordered By: Isiah Purcell on 06-01-2023 Neutrophils/100 WBC (Bld) 67.8 % . [facility] No Panel InformationOrdered By: Isiah Purcell on 06-01-2023 Estimated GFR (CKD-EPI) > 60.0 mL/Min [facility] Creatinine Clearance (Chem N/A [facility] Nucleated erythrocytes [Pres ence] in Blood by Automated countOrdered By: Isiah Purcell on 06-01-2023 Nucleated RBC Auto Ql (Bld) 0.0 /100{WBC} 0-0.5 [facility] Platelet mean volume Auto (B ld) [Entitic vol]Ordered By: Isiah Purcell on 06-01-2023 Platelet mean volume (Bld) [Entitic vol] 8.2 fL 6.3-10.7 [facility] Platelets Auto (Bld) [#/Vol] Ordered By: Isiah Purcell on 06-01-2023 Platelets (Bld) [#/Vol] 377 10*3/uL 150-450 [facility] Potassium [Moles/volume] in Serum or PlasmaOrdered By: Isiah Purcell on 06-01-2023 Potassium [Moles/Vol] 4.2 mmol/L 3.5-5.1 [facility] Protein [Mass/volume] in Ser um or PlasmaOrdered By: Isiah Purcell on 06-01-2023 Protein [Mass/Vol] 6.6 g/dL 6.4-8.9 [facility] RBC Auto (Bld) [#/Vol]Ordere d By: Isiah Purcell on 06-01-2023 RBC (Bld) [#/Vol] 4.52 10*6/uL 3.60-5.00 [facility] Serum or plasma albumin/glob ulin mass ratioOrdered By: Isiah Purcell on 06-01-2023 Albumin/Globulin [Mass ratio] 1.8 {ratio} [facility] Serum or plasma anion gap de terminationOrdered By: Isiah Purcell on 06-01-2023 Anion gap [Moles/Vol] 10.2 mmol/L 6.0-15.0 [facility] Sodium [Moles/volume] in Ser um or PlasmaOrdered By: Isiah Purcell on 06-01-2023 Sodium [Moles/Vol] 140 mmol/L 136-145 [facility] Urea nitrogen [Mass/volume] in Serum or PlasmaOrdered By: Isiah Purcell on 06-01-2023 Urea nitrogen [Mass/Vol] 7 mg/dL 7-25 [facility] WBC Auto (Bld) [#/Vol]Ordere d By: Isiah Purcell on 06-01-2023 WBC (Bld) [#/Vol] 7.3 10*3/uL 3.8-11.6 [facility] MR shoulder LT wo conon 03-22 [place] [address] MRI Report Signed Patient: Karen Solis MR#: [id number] 01 : 1970 Acct:[id number] Age/Sex: 52 / F ADM Date: 04/02/23 Loc: [facility] Room: Type: [facility] CLI Attending Dr: Pratik Cross DO Copies [...] Rian Royal M.D.04/02/2023 4:38 PM Dictation Location: [place] [address] Transcribed By: [facility] 04/02/23 163 Dictated By: Rian Royal II, MD 04/02/23 163 Signed By: 04/02/231637 Normal [facility] XR thoracic spine 3V*on XR thoracic spine 3V* [facility] [address] XRay Report Signed Patient: Karen Solis MR#: [id number] 01 : 1970 Acct:[id number] Age/Sex: 52 / F ADM Date: 02/24/23 Loc: ICXD Room: Type: [facility] CLI Attending Dr: Gwendolyn MULLER Copies to: [...] Perla Mcnally M.D.02/24/2023 4:32 PM Dictation Location: [place] [address] Transcribed By: [facility] 02/24/23 1632 Dictated By: Perla Mcnally MD 02/24/23 1630 Signed By: 02/24/23 1632 [facility] XR pre/post mri xrayon 09-24 XR pre/post mri xray [facility] [place] [address] [place] [address] MRI Report Signed Patient: Karen Solis MR#: [id number] 01 : 1970 Acct:[id number] Age/Sex: 52 / F ADM Date: 09/24/22 Loc: [facility] Room: Type: [facility] CLI Attending Dr: Brenda JORDANC Copies to: RONAL Collazo Ordering Provider: RONAL Collazo Date of Service: 09/24/22 MR/MR cervical spine wo con: M54.12 ([id number]) XR/XR pre/post mri xray: C-SPINE MRI cervical [...] Umesh Perez M.D.09/24/2022 3:22 PM Dictation Location: [place] [address] Transcribed By: [facility] 09/24/22 1522 Dictated By: Umesh Perez DO 09/24/22 1517 Signed By: 09/24/22 1522 [facility] MR head/brain wo conon 07-30 MR head/brain wo con [facility] Main [place] [address] [place], [place] [id number] MRI Report Signed Patient: Karen Solis MR#: [id number] 01 : 1970 Acct:[id number] Age/Sex: 52 / F ADM Date: 07/30/22 Loc: ICMR Room: Type: [facility] CLI Attending Dr: Christin Grullon DO Copies [...] Perla Mcnally M.D.07/30/2022 4:55 PM Dictation Location: [place] [address] Transcribed By: ANJEL 07/30/22 1655 Dictated By: Perla Mcnally MD 07/30/22 1647 Signed By: 07/30/22 1655 [facility] MR head/brain wo con [facility] [employer] Other MR head/brain wo con [facility] [employer] Other MR head/brain wo con [facility] [employer] Other MR head/brain wo con QUITA Scales [address] [employer] Other MR head/brain wo con MRI Report [email or web address] Other MR head/brain wo con Signed [email or web address] Other MR head/brain wo con Patient: Karen Solis MR#: [id number] [employer] Other MR head/brain wo con 01 [email or web address] Other MR head/brain wo con : 1970 Acct:[id number] [employer] Other MR head/brain wo con Age/Sex: 52 / F ADM Date: 07/30/22 [employer] Other MR head/brain wo con Loc: ICMR Room: Type: [facility] [employer] Other MR head/brain wo con Attending Dr: Christin Grullon DO [employer] Other MR head/brain wo con Copies to: Christin Grullon DO [employer] Other MR head/brain wo con Ordering Provider: Christin Grullon DO [employer] Other MR head/brain wo con Date of Service: 07/30/22 [employer] Other MR head/brain wo con MR/MR head/brain wo con: Generalized headaches;Intention tremor;Pain in [employer] Other MR head/brain wo con unspecified l [employer] Other MR head/brain wo con EXAMINATION: MRI OF THE BRAIN WITHOUT CONTRAST [employer] Other MR head/brain wo con CLINICAL HISTORY: Headache and intention tremor for the past few months, mostly on the left. [employer] Other MR head/brain wo con COMPARISON: CT 2021 [employer] Other MR head/brain wo con TECHNIQUE: Multiecho, multiplanar imaging of the brain was performed without enhancement. [employer] Other MR head/brain wo con The ventricles are normal in size and position. A small nonspecific focus of increased T2 and FLAIR [employer] Other MR head/brain wo con signal is present within the subcortical white matter of the right parietal lobe (axial image 15). [employer] Other MR head/brain wo con There is also very subtle increased signal within the suzie. This is nonspecific and could be [employer] Other MR head/brain wo con minimal microvascular disease. Demyelination is thought less likely given the distribution. A [employer] Other MR head/brain wo con prominent perivascular space is noted at the inferior basal ganglia region on the left. There are [employer] Other MR head/brain wo con no additional areas of abnormal signal intensity within the supra- or infratentorial brain. No [employer] Other MR head/brain wo con restricted diffusion is identified to suggest a recent ischemic event. There are no extra-axial [employer] Other MR head/brain wo con collections or mass effect. The imaged paranasal sinuses and mastoid air cells are clear. [employer] Other MR head/brain wo con MR/MR head/brain wo con [employer] Other MR head/brain wo con IMPRESSION: [facility] [employer] Other MR head/brain wo con MINIMAL NONSPECIFIC WHITE MATTER CHANGE, DESCRIBED. [employer] Other MR head/brain wo con NO ACUTE INTRACRANIAL FINDINGS [employer] Other MR head/brain wo con Impression dictated by: Perla Mcnally M.D.07/30/2022 4:55 PM [employer] Other MR head/brain wo con Dictation Location: [facility]--10 [employer] Other MR head/brain wo con Transcribed By: PWS 07/30/22 1655 [employer] Other MR head/brain wo con Dictated By: Perla Mcnally MD 07/30/22 1647 [employer] Other MR head/brain wo con Signed By: Thierno [employer] Other MR head/brain wo con 07/30/22 1655 [facility] [employer] Other POINT OF CARE GLUCOSEon 06-24 Glucose [Mass/Vol] 94 mg/dL Normal 74-106 [facility] Comment on above: Performed By: #### P OCGLUC #### [facility] [address] [place], [place] [address] Dr. Alex Guy Glucose [Mass/Vol] 92 mg/dL Normal 74-106 [facility] Comment on above: Performed By: #### P OCGLUC ####[facility] [address] [place], [place] [address]JkDr. Alex Guy XR FOOT LT 2Von 07-21-2022 [...] ROXANNA NIELSEN Date: 2022-07-21 09:40 Normal [facility] Covid-19 PCR (CVDTB)on 06-23 SARS-CoV-2 (COVID-19) RNA CATALINA+probe Ql (Unsp spec) Not detected Normal NOT DETECTED [facility] Comment on above: Result Comment: This test is not yet approved or cleared by the [place] FDA. When there are no FDA-approved or cleared tests available, and other criteria are met, FDA can make tests available under an emergency access mechanism called an Emergency Use Authorization (EUA). The EUA for this test is supported by the [place] of Health and Human Service's (HHS's) declaration [...] consistent with SARS-CoV-2. Performed By: #### C [facility] #### [facility] [address] [place] [address] Dr. Alex Sandhu 07-14-2022 L Specimen: [id number] Received: 07/14/22 Status: GENNY Valadez Num: [id number] Spec Type: Surgical Subm Dr: Rian Royal II, MD Tissues: A BREAST CORE NO CALCS (RT BREAST TISSUE) Procedures: HE/4, Gross/Micro L4, CALPONIN Age/ Patient Sex Location Account Attending Physician Karen Solis 52/F AC [id number] Jose Vincent DO SPEC NUM: [id number] RECD: 07/14/22 STATUS: GENNY WEINSTEINAmairani NUM: [id number] LESTER: 07/14/221139 [facility] DR: Rian Royal II, MD ENTERED: 07/14/[address] [facility] [address]: DO JOE Martini TYPE: Surgical DEPT: [...] [id number] Received: 07/14/22 Status: GENNY Valadez Num: [id number] Spec Type: Surgical Subm Dr: Rian Royal II, MD Tissues: A BREAST CORE NO CALCS (RT BREAST TISSUE) Procedures: PALLAVI/Apryl, Gross/Micro CAYETANO Arango Patient: SolisKaren A [id number] (Continued) Specimen: [id number] Received: 07/14/22 (Continued) Signed (signatur e on file) Tenisha Banks MD 07/15/22 1623 Specimen: S2 Received: 07/14/22 Status: GENNY Valadez Num: [id number] Spec Type: Surgical Subm Dr: Rian Royal II, MD Tissues: A BREAST CORE NO CALCS (RT BREAST TISSUE) Procedures: HE/4, Gross/Micro L4, CALPONIN Patient: Karen Solis [id number] (Continued) Specimen: S2 Received: 07/14/22 (Continued) Microscopic Description Two glass slides with H E stained material have been examined. The microscopic findings support the above pathologic diagnosis. CPT Codes 18240 Specimen: [id number] Received: 07/14/22 Status: GENNY Weinsteinamairani Num: [id number] Spec Type: Surgical Subm Dr: Rian Royal II, MD Tissues: A BREAST CORE NO CALCS (RT BREAST TISSUE) Procedures: Claudio LYNN/Chiquis L4, CALPONIN Patient: Karen Solis [id number] (Continued) Signed (signatur e on file) Tenisha Banks MD 07/15/22 2814 Normal [facility] US breast ndl core biopsy RT on 07-14-2022 breast ndl core biopsy RT [facility] [address] Mammography Report Signed with Addenda Patient: Karen Solis MR#: [id number] 01 : 1970 Acct:[id number] Age/Sex: 52 / F ADM Date: 07/14/22 Loc: [facility] Room: Type: [facility] Attending Dr: Jose Vincent DO Copies to: DO Christin Martini DO Ordering Provider: Jose Vincent DO Date of Service: 07/14/22 US/US breast ndl core biopsy RT: BREAST LESION ([id number]) MM/MM post biopsy RT w/CAD: POST U/S BX WITH CLIP ADDENDUM 1 Final pathology: Benign fibrofatty breast tissue Negative for atypia or malignancy. Recommendation: Follow-up with diagnostic right breast mammogram in 6 months is recommended. Impression dictated by: Rian Royal M.D.07/16/2022 7:40 AM Dictation Location: [facility] Addendum Dictated By: Rian Royal II, MD [...] of the right breast was performed by cardiovascular radiologic technologist as well as myself. At the [...] o'clock position were performed using a 12-gauge FINXI vacuum-assisted core biopsy needle under ultrasound guidance. [...] Rian Royal M.D.07/14/2022 11:58 AM Dictation Location: [facility] Transcribed By: [facility] 07/14/22 1158 Dictated By: Rian Royal II, MD 07/14/22 1154 Signed By: 07/14/22 1158 [facility] PROF CHEM 8 (BAS METB)on Anion gap [Moles/Vol] 9.3 mmol/L Normal [facility] Comment on above: Performed By: #### B MP ####[facility] [address] [place] [address]Dr. Alex Guy Calcium [Mass/Vol] 9.5 mg/dL Normal 8.5-10.1 [facility] Comment on above: Performed By: #### B MP ####[facility] [address] [place] [address]Dr. Alex Guy Chloride [Moles/Vol] 104 mmol/L Normal 98-[address] [facility] Comment on above: Performed By: #### B MP ####[facility] [address] [place] [id number]. Alex Guy CO2 [Moles/Vol] 32.4 mmol/L Critically high 21.0-32.[address] [facility] Comment on above: Performed By: #### B MP ####[facility] [address] [place] [id number]. Alex Guy Creatinine [Mass/Vol] 0.82 mg/dL Normal 0.55-1.[address] [facility] Comment on above: Performed By: #### B MP ####[facility] [address] [place] [id number]. Alex Guy EGFR-AF SINGAPOREAN >60 Normal >=60 [facility] Comment on above: Performed By: #### B MP ####[facility] [address] [place] [id number]. Alex Guy EGFR-NON AF SINGAPOREAN >60 Normal >=[address] [facility] Comment on above: Performed By: #### B MP ####[facility] [address] [place] [id number]. Alex Guy Glucose [Mass/Vol] 89 mg/dL Normal 74-106 [facility] Comment on above: Performed By: #### B MP ####[facility] [address] [place] [address]Dr. Alex Guy Potassium [Moles/Vol] 4.7 mmol/L Normal 3.5-5.[address] [facility] Comment on above: Performed By: #### B MP ####[facility] [address] [place] [id number]. Alex Guy Sodium [Moles/Vol] 141 mmol/L Normal 136-145 [facility] Comment on above: Performed By: #### B MP ####[facility] [address] [place] [id number]. Alex Guy Urea nitrogen [Mass/Vol] 7.0 mg/dL Normal 7.0-18.0 [facility] Comment on above: Performed By: #### B MP ####[facility] [address] [place] [id number]. Alex Guy Urea nitrogen/Creatinine [Mass ratio] 8.5 mg/mg Normal [facility] Comment on above: Performed By: #### B MP ####[facility] [address] [place] [id number]. Alex Guy CT FOOT LT WO CONon [...] by: STERLING THOMAS Date: 2022-07-08 07:[address] [facility] US breast RT limitedon 07-08 US breast RT limited [facility] Main [place] [address] [place] [address] Mammography Report Signed Patient: Karen Solis MR#: [id number] : 1970 Acct:[id number] Age/Sex: 52 / F ADM Date: 07/08/22 Loc: [place] Room: Type: [facility] Attending Dr: Christin Grullon DO Copies to: Christin Grullon DO Ordering Provider: Christin Grullon DO Date of Service: 07/08/22 MM/MM diagnostic mammo RT w/CAD: Abnormal mammogram of right breast ([id number]) US/US breast RT limited: Abnormal mammogram of [...] Perla Mcnally M.D.07/08/2022 4:04 PM Dictation Location: [facility] Transcribed By: ANJEL 07/08/22 1604 Dictated By: Perla Mcnally MD 07/08/22 1442 Signed By: 07/08/22 1604 Normal [facility] US breast RT limited [facility] [employer] Other US breast RT limited [facility] Main [facility] [employer] Other US breast RT limited [address] [place] [address] [employer] Other [place] [address] [employer] [facility] [employer] Other US breast RT limited Mammography Report [employer] Other US breast RT limited Signed [employer] Other US breast RT limited Patient: Karen Solis MR#: [id number] [employer] Other US breast RT limited [employer] Other US breast RT limited : 1970 Acct:[id number] [employer] Other US breast RT limited Age/Sex: 52 / F ADM Date: 07/08/22 [employer] Other US breast RT limited Loc: [place] Room: Type: [facility] [employer] Other US breast RT limited Attending Dr: Christin Grullon DO [employer] Other US breast RT limited Copies to: Christin Grullon DO [employer] Other US breast RT limited Ordering Provider: Christin Grullon DO [employer] Other US breast RT limited Date of Service: 07/08/22 [employer] Other US breast RT limited MM/MM diagnostic mammo RT w/CAD: Abnormal mammogram of right breast [employer] Other US breast RT limited ([id number]) US/US breast RT limited: Abnormal mammogram of right breast [employer] Other US breast RT limited CLINICAL DATA: Follow-up right breast asymmetry. [employer] Other US breast RT limited RIGHT DIAGNOSTIC MAMMOGRAMS - FULL FIELD DIGITAL WITH TOMOSYNTHESIS AND CAD [employer] Other US breast RT limited Tomosynthesis spot compression true lateral, craniocaudal and mediolateral oblique views of the [employer] Other US breast RT limited right breast were obtained using low-dose digital technique. Comparison is made to the prior study [employer] Other [employer] breast RT limited from June 19, 2022. This examination was reviewed with the aid of CAD. [employer] Other US breast RT limited There are scattered fibroglandular densities. There is still subtle, ill-defined asymmetry at the [employer] Other US breast RT limited central, slightly inferior breast on today's views. There are no other suspicious masses, typically [employer] Other US breast RT limited malignant calcifications or architectural distortion. [employer] Other US breast RT limited LIMITED RIGHT BREAST ULTRASOUND [employer] Other US breast RT limited the 4 to 5:00 position in the retroareolar region, there is a subtle hypoechoic area which has [employer] Other US breast RT limited slightly irregular margination. It measures approximately 3 x 3 x 4 mm in size. This might correlate [employer] Other US breast RT limited with the mammographic asymmetry. At the 6 to 7:00 position, 4 cm from the nipple there is a possible [employer] Other US breast RT limited subtle 3 x 2 x 4 mm hypoechoic nodular area within a band of tissue extending from middle depth [employer] Other US breast RT limited toward the chest wall. There are multiple adjacent vessels. If real, this is probably incidental. [employer] Other US breast RT limited MM/MM diagnostic mammo RT w/CAD [employer] Other US breast RT limited IMPRESSION: [employer] Other US breast RT limited PERSISTENT SUBTLE ASYMMETRY WITH TINY INDETERMINANT HYPODENSITY ON ULTRASOUND. FINDINGS WERE [employer] Other US breast RT limited DISCUSSED WITH THE PATIENT WHO WOULD PREFER ULTRASOUND-GUIDED BIOPSY OVER OBSERVATION. [employer] Other US breast RT limited SECOND POTENTIAL INCIDENTAL TINY HYPODENSITY AT THE LOWER OUTER QUADRANT. ULTRASOUND FOLLOW-UP IN 6 [employer] Other US breast RT limited MONTHS IS SUGGESTED. [employer] Other US breast RT limited RESULT CODE: 4a [employer] Other US breast RT limited Suspicious Abnormality - Biopsy Low Suspicion [employer] Other US breast RT limited DENSITY CODE: 2 (approximately 25-50% glandular) [employer] Other US breast RT limited FOLLOW UP: BIO [employer] Other US breast RT limited The false-negative rate of mammography is approximately 10-percent. [employer] Other US breast RT limited Management of a palpable abnormality must be based on clinical grounds. [employer] Other US breast RT limited Patient was entered into a reminder system with a target due date for the next mammogram. [employer] Other US breast RT limited Impression dictated by: Perla Mcnally M.D.07/08/2022 4:04 PM [employer] Other US breast RT limited Dictation Location: [facility] [employer] Other US breast RT limited Transcribed By: ANJEL 07/08/22 1604 [employer] Other US breast RT limited Dictated By: Perla Mcnally MD 07/08/22 [facility] [employer] Other US breast RT limited Signed By: [employer] Other US breast RT limited 07/08/22 1604 [employer] Other MM screening mammo BI w/CADo n 06-30-2022 MM screening mammo BI w/CAD [facility] Main [place] [id number] Mammography Report Signed Patient: Karen Solis MR#: [id number] 01 : 1970 Acct:[id number] Age/Sex: 52 / F ADM Date: 06/19/22 Loc: [place] Room: Type: [facility] Attending Dr: Christin Grullon DO [...] Hannah Jr., D.O.06/30/2022 10:03 AM Dictation Location: [facility] Transcribed By: ANJEL 06/30/22 1003 Dictated By: Jeff Hannah Jr, DO 06/30/22 1001 Signed By: 06/30/22 1003 Normal [facility] Albumin [Mass/volume] in Ser um or PlasmaOrdered By: Christin Grullon on 05-19-2022 Albumin [Mass/Vol] 4.6 g/dL 3.2-5.5 [facility] C reactive protein [Mass/vol ume] in Serum or PlasmaOrdered By: Christin Grullon on 05-19-2022 CRP [Mass/Vol] 0.5 mg/dL 0.0-1.0 [facility] Creatinine and Glomerular fi ltration rate.predicted panel (S/P/Bld)Ordered By: Christin Grullon on 05-19-2022 Creatinine [Mass/Vol] 0.85 mg/dL 0.44-1.03 [facility] Erythrocyte distribution wid th Auto (RBC) [Ratio]Ordered By: Christin Grullon on 05-19-2022 Erythrocyte distribution width (RBC) [Ratio] 13.6 % 11.9-15.3 [facility] Erythrocyte sedimentation ra te by Photometric methodOrdered By: Christin Grullon on 05-19-2022 ESR Photometric method (Bld) [Velocity] 24 mm/hr 0- [facility] Estimated glomerular filtrat ion rate (GFR) non- AmericanOrdered By: Christin Grullon on 05-19-2022 GFR/1.73 sq M.predicted among non-blacks MDRD (S/P/Bld) [Vol rate/Area] > 60 mL/Min [facility] Globulin Calc (S) [Mass/Vol] Ordered By: Christin Grullon on 05-19-2022 Globulin (S) [Mass/Vol] 2.5 g/dL F [facility] Hematocrit Auto (Bld) [Volum e fraction]Ordered By: Christin Grullon on 05-19-2022 Hematocrit (Bld) [Volume fraction] 42.6 % 34.0-46.4 [facility] Hemoglobin [Mass/volume] in BloodOrdered By: Christin Grullon on 05-19-2022 Hemoglobin (Bld) [Mass/Vol] 14.1 g/dL 11.8-15.4 [facility] MCH Auto (RBC) [Entitic mass ]Ordered By: Christin Grullon on 05-19-2022 MCH (RBC) [Entitic mass] 29.5 pg 24.7-34.3 [facility] MCHC Auto (RBC) [Mass/Vol]Or dered By: Christin Grullon on 05-19-2022 MCHC (RBC) [Mass/Vol] 33.0 g/dL 32.0-35.0 [facility] MCV Auto (RBC) [Entitic vol] Ordered By: Christin Grullon on 05-19-2022 MCV (RBC) [Entitic vol] 89.3 fL 80-[address] [facility] No Panel InformationOrdered By: Christin Grullon on 05-19-2022 Estimated GFR () > 60 mL/Min [facility] Comment on above: GFR estimated refere nce range: According to KDOQI guidelines, <60 ml/min/1.73m2 is sufficient to diagnose a patient with chronic kidney disease. Pharmacy Creatinine Clearance (Chem N/A [facility] Platelet mean volume Auto (B ld) [Entitic vol]Ordered By: Christin Grullon on 05-19-2022 Platelet mean volume (Bld) [Entitic vol] 8.5 fL 6.3-10.7 [facility] Platelets Auto (Bld) [#/Vol] Ordered By: Christin Grullon on 05-19-2022 Platelets (Bld) [#/Vol] 388 10*3/uL 150-450 [facility] Protein [Mass/volume] in Ser um or PlasmaOrdered By: Christin Grullon on 05-19-2022 Protein [Mass/Vol] 7.1 g/dL 6.1-7.9 [facility] RBC Auto (Bld) [#/Vol]Ordere d By: Christin Grullon on 05-19-2022 RBC (Bld) [#/Vol] 4.77 10*6/uL 3.60-5.00 [facility] Serum or plasma alanine martinez otransferase measurement without P-5'-P (enzymatic activiOrdered By: Chrisitn Grullon on 05-19-2022 ALT No additional P-5'-P [Catalytic activity/Vol] 9 U/L 10-60 [facility] Serum or plasma albumin/glob ulin mass ratioOrdered By: Christin Grullon on 05-19-2022 Albumin/Globulin [Mass ratio] 1.8 {ratio} [facility] Serum or plasma alkaline cooper sphatase measurement (enzymatic activity/volume)Ordered By: Christin Grullon on 05-19-2022 ALP [Catalytic activity/Vol] 98 U/L 32-92 [facility] Serum or plasma anion gap de terminationOrdered By: Christin Grullon on 05-19-2022 Anion gap [Moles/Vol] 13.8 mmol/L 6.0-15.0 [facility] Serum or plasma aspartate am inotransferase measurement (enzymatic activity/volume)Ordered By: Christin Grullon on 05-19-2022 AST [Catalytic activity/Vol] 16 U/L 10-42 [facility] Serum or plasma calcium abhijit urement (mass/volume)Ordered By: Christin Grullon on 05-19-2022 Calcium [Mass/Vol] 9.9 mg/dL 8.2-10.2 [facility] Serum or plasma chloride brandon surement (moles/volume)Ordered By: Christin Grullon on 05-19-2022 Chloride [Moles/Vol] 101 mmol/L 95-114 [facility] Serum or plasma cyclic adeno sine monophosphate measurement (moles/volume)Ordered By: Christin Grullon on 05-19-2022 Adenosine monophosphate.cyclic [Moles/Vol] 4 units 0-19 [facility] Comment on above: Negative <20 Weak po sitive 20 - 39 Moderate positive 40 - 59 Strong positive >59Performed at: BN - [facility] [address] [id number] Director: Lena Evans MD, Phone: [phone] Serum or plasma glucose abhijit urement (mass/volume)Ordered By: Christin Grullon on 05-19-2022 Glucose [Mass/Vol] 81 mg/dL 70-100 [facility] Comment on above: ADA recommended refe rence rangeRandom Glucose Reference Range is dependent on time and content of last meal. Glucose of more than 200 mg/dL in a nonstressed, ambulatory subject supports the diagnosis of Diabetes Mellitus. Serum or plasma potassium me asurement (moles/volume)Ordered By: Christin Grullon on 05-19-2022 Potassium [Moles/Vol] 4.6 mmol/L 3.5-5.1 [facility] Serum or plasma rheumatoid f actor measurement (units/volume)Ordered By: Christin Grullon on 05-19-2022 Rheumatoid factor Qn [IU]/mL <14.0 [facility] Comment on above: Performed at: [facility] [address] [id number] Director: Primitivo Raygoza PhD, Phone: [phone] Serum or plasma sodium measu rement (moles/volume)Ordered By: Christin Grullon on 05-19-2022 Sodium [Moles/Vol] 138 mmol/L 136-146 [facility] Serum or plasma total biliru bin measurement (mass/volume)Ordered By: Christin Grullon on 05-19-2022 Bilirubin [Mass/Vol] 0.4 mg/dL 0.3-1.2 [facility] Serum or plasma total carbon dioxide measurement (moles/volume)Ordered By: Christin Grullon on 05-19-2022 CO2 [Moles/Vol] 27.8 mmol/L 22.0-30.0 [facility] Serum or plasma urea nitroge n measurement (mass/volume)Ordered By: Christin Grullon on 05-19-2022 Urea nitrogen [Mass/Vol] 8 mg/dL - [facility] WBC Auto (Bld) [#/Vol]Ordere d By: Christin Grullon on 05-19-2022 WBC (Bld) [#/Vol] 7.1 10*3/uL 3.8-11.6 [facility] XR knee standing BIon 2021 XR knee standing BI [facility] [employer] Other XR knee standing BI [facility] [employer] [facility] [employer] Other XR knee standing BI [address] [place] [address] [employer] [facility] [employer] [place] [address] [employer] Other XR knee standing BI XRay Report [facility] [employer] [place] Other XR knee standing BI Signed [employer] Other XR knee standing BI Patient: Karen Solis MR#: [id number] [employer] [place] Other XR knee standing BI [employer] Other XR knee standing BI : 1970 Acct:[id number] [employer] Other XR knee standing BI Age/Sex: 52 / F ADM Date: 05/19/22 [employer] Other XR knee standing BI Loc: XD[facility]C Room: Type: [facility] [employer] Other XR knee standing BI Attending Dr: Christin Grullon DO [employer] Other XR knee standing BI Copies to: Christin Grullon DO [employer] Other XR knee standing BI Ordering Provider: Christin Grullon DO [employer] Other XR knee standing BI Date of Service: 05/19/22 [employer] Other XR knee standing BI XR/XR shoulder LT min 2V*: Pain in joint, multiple sites;Pain in left [employer] Other XR knee standing BI shoulder [employer] Other XR knee standing BI ([id number]) XR/XR knee standing BI: Pain in joint, multiple sites;Pain in right knee;Pain in lef [employer] Other XR knee standing BI LEFT SHOULDER - - 3 views bilateral knee series, one view each [employer] Other XR knee standing BI CLINICAL HISTORY: Frozen left shoulder for 4 months. Bilateral knee pain left greater than right [employer] Other XR knee standing BI with standing. N [employer] Other XR knee standing BI COMPARISON: Knee series 01/15/2021 [employer] Other XR knee standing BI FINDINGS: [employer] Other XR knee standing BI Left shoulder: No acute bony process or significant degenerative change. [employer] Other XR knee standing BI Knee series: No acute bony process or significant degenerative change. [employer] Other XR knee standing BI XR/XR shoulder LT min 2V* [employer] Other XR knee standing BI IMPRESSION: [facility] [employer] [place] Other XR knee standing BI NO ACUTE BONY PROCESS OR SIGNIFICANT DEGENERATIVE CHANGE INVOLVING THE KNEES OR LEFT SHOULDER. [employer] Other XR knee standing BI Impression dictated by: Jeff Hannah Jr., D.OGanga05/19/2022 3:54 PM [employer] Other XR knee standing BI Dictation Location: [place] [address] [employer] Other XR knee standing BI Transcribed By: PWS 05/19/22 155 [employer] Other XR knee standing BI Dictated By: Jeff Hannah Jr, DO 05/19/22 [facility] [employer] Other XR knee standing BI Signed By: [employer] Other XR knee standing BI 05/19/22 1554 No rt [employer] [place] Other POINT OF CARE GLUCOSEon 01-21 Glucose [Mass/Vol] 126 mg/dL Critically high 74-106 T he [facility] Comment on above: Performed By: #### P OCGLUC #### [facility] [address] [address] [address] Alex Guy Covid-19 PCR ([facility]on 01-21 SARS-CoV-2 (COVID-19) RNA CATALINA+probe Ql (Unsp spec) Not detected Normal NOT DETECTED [facility] Comment on above: Result Comment: This test is not yet approved or cleared by the [place] FDA. When there are no FDA-approved or cleared tests available, and other criteria are met, FDA can make tests available under an emergency access mechanism called an Emergency Use Authorization (EUA). The EUA for this test is supported by the Employee Communications Intern of Health and Human Service's (HHS's) declaration [...] consistent with SARS-CoV-2. Performed By: #### C [facility] #### [facility] [address] [address] [address] Alex Guy XR CHEST 2 Von [...] HUNG ARREDONDO Date: 2022-02-04 07:41 Normal [facility] PROF CHEM 8 (BAS METB)on Anion gap [Moles/Vol] 10.7 mmol/L Normal [facility] Comment on above: Performed By: #### B MP ####[facility] [address] [id number] Guy Calcium [Mass/Vol] 9.3 mg/dL Normal 8.5-10.1 [facility] Comment on above: Performed By: #### B MP ####[facility] [address] [id number] Guy Chloride [Moles/Vol] 101 mmol/L Normal 98-107 [facility] Comment on above: Performed By: #### B MP ####[facility] [address] [id number] Guy CO2 [Moles/Vol] 30.3 mmol/L Normal 21.0-32.0 [facility] Comment on above: Performed By: #### B MP ####[facility] [address] [id number]. Alex Guy Creatinine [Mass/Vol] 0.91 mg/dL Normal 0.55-1.02 [facility] Comment on above: Performed By: #### B MP ####[facility] [address] [place] [address] [id number]. Alex Guy EGFR-AF SINGAPOREAN >60 Normal >=60 [facility] Comment on above: Performed By: #### B MP ####[facility] [address] [id number]. Alex Guy EGFR-NON AF SINGAPOREAN >60 Normal >=60 [facility] Comment on above: Performed By: #### B MP ####[facility] [address] [place], [place] [address]Dr. Alex Guy Glucose [Mass/Vol] 84 mg/dL Normal 74-106 [facility] Comment on above: Performed By: #### B MP ####[facility] [address] [place], [place] [address]Dr. Alex Guy Potassium [Moles/Vol] 5.0 mmol/L Normal 3.5-5.1 [facility] Comment on above: Performed By: #### B MP ####[facility] [address] [place], [place] [address]Dr. Alex Guy Sodium [Moles/Vol] 137 mmol/L Normal 136-145 [facility] Comment on above: Performed By: #### B MP ####[facility] [address] [place], [place] [address]Dr. Alex Guy Urea nitrogen [Mass/Vol] 8.0 mg/dL Normal 7.0-18.0 [facility] Comment on above: Performed By: #### B MP ####[facility] [address] [place], [place] [address]Dr. Alex Guy Urea nitrogen/Creatinine [Mass ratio] 8.8 mg/mg Normal [facility] Comment on above: Performed By: #### B MP ####[facility] [address] [place], [place] [address]Dr. Alex Guy CT FOOT LT WO CONon [...] by: HUNG ARREDONDO Date: 2021-12-27 18:[address] [facility] PROGRESSon 10-19-2018 Protein mass conc HNO ID: [id number] Author: Lian Aparicio Service: ? Author Type: Physician Type: Progress Notes Filed: 10/19/2018 9:59 PM Note Text: [facility] - General Progress Note KAREN SOLIS : 1970 AGE: 48 SEX: F CSN: [id number] [facility]: [place] [facility] [place]YSICIAN: Bill Patten M.D. DATE OF [...] Psych Unit. Lian Aparicio M.D. Internal Medicine JOYNER:[id number] [facility] RPRon 08-31-2018 Reagin Ab RPR Ql (S) Nonreactive Normal Nonreactive [facility] Comment on above: Performed By: #### U A, PT, CBCDIF, GBCHEM, GBTSH, MG, RPR #### [facility] [address] [place] [address] CBCDIFon 08-28-2018 Abs Baso 0.06 k/uL Normal 0-0.2 [facility] Comment on above: Performed By: #### U A, PT, CBCDIF, GBCHEM, GBTSH, MG, RPR #### [facility] [address] [place] [address] Abs [place] 1.08 k/uL High 0-0.8 [facility] Comment on above: Performed By: #### U A, PT, CBCDIF, GBCHEM, GBTSH, MG, RPR #### [facility] [address] [place] [address] Abs Neut 4.76 k/uL Normal 1.8-7.7 [facility] Comment on above: Performed By: #### U A, PT, CBCDIF, GBCHEM, GBTSH, MG, RPR #### [facility] [address] [place] [address] Basophils/100 WBC (Bld) 0.8 % Normal 0-1 A [facility] Comment on above: Performed By: #### U A, PT, CBCDIF, GBCHEM, GBTSH, MG, RPR #### [facility] [address] [place] [address] Eosinophils #/vol (Bld) 0.25 10*3/uL Normal 0-0.4 [facility] Comment on above: Performed By: #### U A, PT, CBCDIF, GBCHEM, GBTSH, MG, RPR #### [facility] [address] [place] [address] Eosinophils/100 WBC (Bld) 3.3 % Normal 0-4 [facility] Comment on above: Performed By: #### U A, PT, CBCDIF, GBCHEM, GBTSH, MG, RPR #### [facility] [address] [place] [address] Immature Gran 0.30 % Normal 0-1.9 [facility] Comment on above: Performed By: #### U A, PT, CBCDIF, GBCHEM, GBTSH, MG, RPR #### [facility] [address] [place] [address] Lymphocytes #/vol (Bld) 1.50 10*3/uL Normal 1.0-4.0 [facility] Comment on above: Performed By: #### U A, PT, CBCDIF, GBCHEM, GBTSH, MG, RPR #### [facility] [address] [place] [address] Lymphocytes/100 WBC (Bld) 19.6 % Low 22-44 [facility] Comment on above: Performed By: #### U A, PT, CBCDIF, GBCHEM, GBTSH, MG, RPR #### [facility] [address] [place] [address] Monocytes/100 WBC (Bld) 14.1 % High 4-12 A [facility] Comment on above: Performed By: #### U A, PT, CBCDIF, GBCHEM, GBTSH, MG, RPR #### [facility] [address] [place] [place] [address] Neutrophils/100 WBC (Bld) 61.9 % Normal 40-70 [facility] Comment on above: Performed By: #### U A, PT, CBCDIF, GBCHEM, GBTSH, MG, RPR #### [facility] [address] [place] [address] Erythrocyte distribution width Ratio (RBC) 13.7 % Normal 11.5-14.5 [facility] Comment on above: Performed By: #### U A, PT, CBCDIF, GBCHEM, GBTSH, MG, RPR #### [facility] [address] [place] [address] Hematocrit Volume Fraction (Bld) 45.9 % Normal 36.0-46.0 [facility] Comment on above: Performed By: #### U A, PT, CBCDIF, GBCHEM, GBTSH, MG, RPR #### [facility] [address] [place] [address] Hemoglobin mass conc (Bld) 15.0 g/dL Normal 12.0-16.0 [facility] Comment on above: Performed By: #### U A, PT, CBCDIF, GBCHEM, GBTSH, MG, RPR #### [facility] [address] [place] [address] MCH Entitic mass (RBC) 31.5 pG Normal 26-34 [facility] Comment on above: Performed By: #### U A, PT, CBCDIF, GBCHEM, GBTSH, MG, RPR #### [facility] [address] [place] [address] MCHC mass conc (RBC) 32.7 g/dL Normal 31-37 [facility] Comment on above: Performed By: #### U A, PT, CBCDIF, GBCHEM, GBTSH, MG, RPR #### [facility] [address] [place] [address] MCV Entitic volume (RBC) 96.4 fL Normal 80-100 [facility] Comment on above: Performed By: #### U A, PT, CBCDIF, GBCHEM, GBTSH, MG, RPR #### [facility] [address] [place] [address] NRBCs 0 /100 WBC Normal 0-0.9 [facility] Comment on above: Performed By: #### U A, PT, CBCDIF, GBCHEM, GBTSH, MG, RPR #### [facility] [address] [place] [address] Platelets #/vol (Bld) 248 10*3/uL Normal 150-450 [facility] Comment on above: Performed By: #### U A, PT, CBCDIF, GBCHEM, GBTSH, MG, RPR #### [facility] [address] [place] [address] RBC #/vol (Bld) 4.76 10*6/uL Normal 4.00-5.20 [facility] Comment on above: Performed By: #### U A, PT, CBCDIF, GBCHEM, GBTSH, MG, RPR #### [facility] [address] [place] [address] WBC #/vol (Bld) 7.67 10*3/uL Normal 4.5-11.0 [facility] Comment on above: Performed By: #### U A, PT, CBCDIF, GBCHEM, GBTSH, MG, RPR #### [facility] [address] [place] [address] [facility] 2018 Albumin mass conc 3.9 g/dL Normal 3.5-5.0 [facility] Comment on above: Performed By: #### U A, PT, CBCDIF, GBCHEM, GBTSH, MG, RPR #### [facility] [address] [place], [place] [id number] Alkaline Phos 112 U/L Normal 38-125 [facility] Comment on above: Performed By: #### U A, PT, CBCDIF, GBCHEM, GBTSH, MG, RPR #### [facility] [address] [place], [place] [id number] ALT enzyme act/vol 42 U/L Normal 9-52 [facility] Comment on above: Performed By: #### U A, PT, CBCDIF, GBCHEM, GBTSH, MG, RPR #### [facility] [address] [place] [address] Amylase enzyme act/vol 44 U/L Normal 30-110 [facility] Comment on above: Performed By: #### U A, PT, CBCDIF, GBCHEM, GBTSH, MG, RPR #### [facility] [address] [place] [address] Anion gap molar conc 12 mmol/L Normal 0-15 [facility] Comment on above: Performed By: #### U A, PT, CBCDIF, GBCHEM, GBTSH, MG, RPR #### [facility] [address] [place] [address] AST enzyme act/vol 60 U/L High 17-59 [facility] Comment on above: Performed By: #### U A, PT, CBCDIF, GBCHEM, GBTSH, MG, RPR #### [facility] [address] [place] [address] Bilirubin Ql (U) 0.5 mg/dL Normal 0.2-1.3 [facility] Comment on above: Performed By: #### U A, PT, CBCDIF, GBCHEM, GBTSH, MG, RPR #### [facility] [address] [place] [address] Calcium mass conc 9.4 mg/dL Normal 8.4-10.2 [facility] Comment on above: Performed By: #### U A, PT, CBCDIF, GBCHEM, GBTSH, MG, RPR #### [facility] [address] [place] [address] Chloride molar conc 104 mmol/L Normal 98-107 [facility] Comment on above: Performed By: #### U A, PT, CBCDIF, GBCHEM, GBTSH, MG, RPR #### [facility] [address] [place] [address] Cholesterol mass conc 165 mg/dL Normal 100-199 [facility] Comment on above: Performed By: #### U A, PT, CBCDIF, GBCHEM, GBTSH, MG, RPR #### [facility] [address] [place] [address] CO2 molar conc 28 mmol/L Normal 22-30 [facility] Comment on above: Performed By: #### U A, PT, CBCDIF, GBCHEM, GBTSH, MG, RPR #### [facility] [address] [place] [address] Creatinine mass conc 0.87 mg/dL Normal 0.52-1.04 [facility] Comment on above: Performed By: #### U A, PT, CBCDIF, GBCHEM, GBTSH, MG, RPR #### [facility] [address] [place] [address] eGFR Amer >60 Normal >60 [facility] Comment on above: Result Comment: MDRD calculation used for eGFR results. Performed By: #### U A, PT, CBCDIF, GBCHEM, GBTSH, MG, RPR #### [facility] [address] [place] [address] eGFR non Am >60 Normal >60 [facility] Comment on above: Performed By: #### U A, PT, CBCDIF, GBCHEM, GBTSH, MG, RPR #### [facility] [address] [place] [address] Gamma glutamyl transferase enzyme act/vol 79 U/L High 12-43 [facility] Comment on above: Performed By: #### U A, PT, CBCDIF, GBCHEM, GBTSH, MG, RPR #### [facility] [address] [place] [address] Glucose mass conc 75 mg/dL Normal 74-106 [facility] Comment on above: Performed By: #### U A, PT, CBCDIF, GBCHEM, GBTSH, MG, RPR #### [facility] [address] [place] [address] LDH 496 U/L Normal 318-618 [facility] Comment on above: Performed By: #### U A, PT, CBCDIF, GBCHEM, GBTSH, MG, RPR #### [facility] [address] [place] [address] Phosphate mass conc 4.7 mg/dL High 2.5-4.5 [facility] Comment on above: Performed By: #### U A, PT, CBCDIF, GBCHEM, GBTSH, MG, RPR #### [facility] [address] [place] [address] Potassium molar conc 4.2 mmol/L Normal 3.5-5.1 [facility] Comment on above: Performed By: #### U A, PT, CBCDIF, GBCHEM, GBTSH, MG, RPR #### [facility] [address] [place] [address] Protein mass conc 6.9 g/dL Normal 6.2-8.2 [facility] Comment on above: Performed By: #### U A, PT, CBCDIF, GBCHEM, GBTSH, MG, RPR #### [facility] [address] [place] [address] Sodium molar conc 140 mmol/L Normal 137-145 [facility] Comment on above: Performed By: #### U A, PT, CBCDIF, GBCHEM, GBTSH, MG, RPR #### [facility] [address] [place] [address] Triglyceride mass conc 123 mg/dL Normal 35-150 [facility] Comment on above: Performed By: #### U A, PT, CBCDIF, GBCHEM, GBTSH, MG, RPR #### [facility] [address] [place] [address] Urate mass conc 2.5 mg/dL Normal 2.5-6.2 [facility] Comment on above: Performed By: #### U A, PT, CBCDIF, GBCHEM, GBTSH, MG, RPR #### [facility] [address] [place] [address] Urea nitrogen mass conc 9 mg/dL Normal 7-17 A [facility] Comment on above: Performed By: #### U A, PT, CBCDIF, GBCHEM, GBTSH, MG, RPR #### [facility] [address] [place], [place] [id number] [facility] TSHon 08-28-2018 Thyrotropin Qn 6.750 uU/mL High 0.465-4.680 [facility] Comment on above: Performed By: #### U A, PT, CBCDIF, GBCHEM, GBTSH, MG, RPR #### [facility] [address] [place] [address] Magnesiumon 08-28-2018 Magnesium mass conc 2.4 mg/dL High 1.3-2.3 [facility] Comment on above: Performed By: #### U A, PT, CBCDIF, GBCHEM, GBTSH, MG, RPR #### [facility] [address] [place], [place] [id number] Protimeon 08-28-2018 Prothrombin time (PT) Coag time (PPP) 0.9 s Normal 0.6-1.1 [facility] Comment on above: Result Comment: The PT/INR [...] GBTSH, MG, RPR #### [facility] [address] [facility] [place], [place] [id number] Prothrombin time (PT) Coag time (PPP) 12.2 s Normal 11.8-14.1 [facility] Comment on above: Performed By: #### U A, PT, CBCDIF, GBCHEM, GBTSH, MG, RPR #### [facility] [address] [facility] [place] [address] T3 Totalon 08-28-2018 T3 Total 1.0 ng/mL Normal 0.970-1.69 [facility] Comment on above: Performed By: #### T 3TOT, T3U, T4 #### [facility] [address] [place] [address] T3 Uptakeon 08-28-2018 T3 Uptake 29.7 % Normal 23.5-40.5 [facility] Comment on above: Performed By: #### T 3TOT, T3U, T4 #### [facility] [address] [place], [place] [id number] T4on 08-28-2018 T4 4.4 ug/dL Low 5.5-11.0 [facility] Comment on above: Performed By: #### T 3TOT, T3U, T4 #### [facility] [address] [place], [place] [id number] Urinalysison 08-28-2018 Bilirubin mass conc Negative Normal Negative [facility] Comment on above: Performed By: #### U A, PT, CBCDIF, GBCHEM, GBTSH, MG, RPR #### [facility] [address] [place], [place] [id number] Clarity Nom (U) Clear Normal Clear [facility] Comment on above: Performed By: #### U A, PT, CBCDIF, GBCHEM, GBTSH, MG, RPR #### [facility] [address] [place] [address] Color Nom (U) Straw Critically abnormal Yellow [facility] Comment on above: Performed By: #### U A, PT, CBCDIF, GBCHEM, GBTSH, MG, RPR #### [facility] [address] [place] [address] Comments MICROSCOPIC ANALYSIS NOT DONE ON URINES WITH NEGATIVE BIOCHEMICAL TESTS Normal [facility] Comment on above: Performed By: #### U A, PT, CBCDIF, GBCHEM, GBTSH, MG, RPR #### [facility] [address] [place] [address] Glucose mass conc Negative Normal Negative [facility] Comment on above: Performed By: #### U A, PT, CBCDIF, GBCHEM, GBTSH, MG, RPR #### [facility] [address] [place] [address] Hemoglobin/Blood Negative Normal Negative [facility] Comment on above: Performed By: #### U A, PT, CBCDIF, GBCHEM, GBTSH, MG, RPR #### [facility] [address] [place] [address] Ketone Negative Normal Negative [facility] Comment on above: Performed By: #### U A, PT, CBCDIF, GBCHEM, GBTSH, MG, RPR #### [facility] [address] [place] [address] Leukest Negative Normal Negative [facility] Comment on above: Performed By: #### U A, PT, CBCDIF, GBCHEM, GBTSH, MG, RPR #### [facility] [address] [place] [address] Nitrite Ql (U) Negative Normal Negative [facility] Comment on above: Performed By: #### U A, PT, CBCDIF, GBCHEM, GBTSH, MG, RPR #### [facility] [address] [place] [address] pH (U) 7.0 [pH] Normal 5-7 [facility] Comment on above: Performed By: #### U A, PT, CBCDIF, GBCHEM, GBTSH, MG, RPR #### [facility] [address] [place] [address] Protein mass conc (U) Negative Normal Negative [facility] Comment on above: Performed By: #### U A, PT, CBCDIF, GBCHEM, GBTSH, MG, RPR #### [facility] [address] [place] [address] Urine Spec [place] 1.004 Low 1.005-1.030 [facility] Comment on above: Performed By: #### U A, PT, CBCDIF, GBCHEM, GBTSH, MG, RPR #### [facility] [address] [place] [address] Urobilinogen Qn (U) <2.0 Normal 0.0-1.0 [facility] Comment on above: Performed By: #### U A, PT, CBCDIF, GBCHEM, GBTSH, MG, RPR #### [facility] [address] [place] [address] ALLIED HEALTHon 08-27-2018 [facility] HNO ID: [id number] Author: Yazmin (Therapist) Adriano Service: Music Therapy [...] open to the activities. SIGNATURE: Yazmin Oh [facility] PATIENT NAME: Karen Solis DATE: August 27, 2018 TIME: 3:49 PM [facility] ALLIED HEALTH HNO ID: [id number] Author: Gifty Kaplan) Calixto Service: Art Therapy [...] She is [facility]. She feels if she would've went home family stress and idle time would leave her to relapse. SIGNATURE: Gifty De Luna, HOUSING QUALITY STANDARD INSPECTOR,ATR, ARCHEOLOGIST PATIENT NAME: Karen Solis DATE: August 27, 2018 TIME: 1:47 PM [facility] PROGRESSon 08-27-2018 Protein mass conc HNO ID: [id number] Author: Lian Aparicio Service: ? Author Type: Physician Type: Progress Notes Filed: 10/20/2018 9:46 PM Note Text: [facility] - General Progress Note KAREN SOLIS : 1970 AGE: 48 SEX: F CSN: [id number] HOSP SVC: [place] [facility] [place] PHYSICIAN: Bill Patten M.D. DATE OF [...] Smoking cessation. Lian Aparicio M.D. Internal Medicine JOYNER:[id number] /[id number] [facility] HEALTHon 08-26-2018 ALLIED HEALTH HNO ID: [id number] Author: Lashell (Therapist) Britton Service: Art Therapy [...] images of animals and a cabin in [place]. Pt stated that she enjoyed the presence of animals and that she has always wanted to travel to [place]. SIGNATURE: Lashell Jarquin [facility] PATIENT NAME: Karen Solis DATE: August 26, 2018 TIME: 3:[address] [facility] HNO ID: [id number] Author: RASHMI Alanis Service: Recreational Therapy Author [...] DATE: August 26, 2018 TIME: 2:[address] [facility] HNO ID: [id number] Author: Yazmin (Therapist) Adriano Service: Music Therapy [...] wrote with the group. SIGNATURE: Yazmin Oh [facility] PATIENT NAME: Karen Solis DATE: August 26, 2018 TIME: 1:[address] [facility] HNO ID: [id number] Author: Gifty De Luna (Lsw) Service: Art Therapy Author Type: Art Therapist Type: [facility] Filed: 08/26/2018 11:17 AM [...] back . SIGNATURE: Gifty De Luna LPC,ATR, ARCHEOLOGIST PATIENT NAME: Karen Solis DATE: August 26, 2018 TIME: 11:08 AM Normal [facility] CBC and Differentialon 08-26 Abs Baso 0.04 k/uL Normal <0.11 [facility] Comment on above: Performed By: #### U HCG, UAWMIC, UTOX2 #### [place] [address] Abs [place]away 1.07 k/uL High <0.87 [facility] Comment on above: Performed By: #### U HCG, UAWMIC, UTOX2 #### [place] [address] Abs Neut 6.92 k/uL Normal 1.45-7.50 [facility] Comment on above: Performed By: #### U HCG, UAWMIC, UTOX2 #### [place] [address] Basophils/100 WBC (Bld) 0.4 % Normal [facility] Comment on above: Performed By: #### U HCG, UAWMIC, UTOX2 #### [place] [address] Eosinophils #/vol (Bld) 0.19 10*3/uL Normal <0.46 [facility] Comment on above: Performed By: #### U HCG, UAWMIC, UTOX2 #### [place] [address] Eosinophils/100 WBC (Bld) 2.1 % Normal [facility] Comment on above: Performed By: #### U HCG, UAWMIC, UTOX2 #### [place] [address] Erythrocyte distribution width Ratio (RBC) 14.0 % Normal 11.5-15.0 [facility] Comment on above: Performed By: #### U HCG, UAWMIC, UTOX2 #### [place] [address] Hematocrit Volume Fraction (Bld) 41.3 % Normal 36.0-46.0 [facility] Comment on above: Performed By: #### U HCG, UAWMIC, UTOX2 #### [place] [address] Hemoglobin mass conc (Bld) 13.9 g/dL Normal 11.5-15.5 [facility] Comment on above: Performed By: #### U HCG, UAWMIC, UTOX2 #### [place] [address] Lymphocytes #/vol (Bld) 0.86 10*3/uL Low 1.00-4.00 [facility] Comment on above: Performed By: #### U HCG, UAWMIC, UTOX2 #### [place] [address] Lymphocytes/100 WBC (Bld) 9.5 % Normal [facility] Comment on above: Performed By: #### U HCG, UAWMIC, UTOX2 #### [place] [address] MCH Entitic mass (RBC) 32.3 pG Normal 26.0-34.0 [facility] Comment on above: Performed By: #### U HCG, UAWMIC, UTOX2 #### [place] [address] MCHC mass conc (RBC) 33.7 g/dL Normal 30.5-36.0 [facility] Comment on above: Performed By: #### U HCG, UAWMIC, UTOX2 #### [place] [address] MCV Entitic volume (RBC) 95.8 fL Normal 80.0-100.0 [facility] Comment on above: Performed By: #### U HCG, UAWMIC, UTOX2 #### [place] [address] Monocytes/100 WBC (Bld) 11.8 % Normal [facility] Comment on above: Performed By: #### U HCG, UAWMIC, UTOX2 #### [place] [address] Neutrophils/100 WBC (Bld) 76.2 % Normal [facility] Comment on above: Performed By: #### U HCG, UAWMIC, UTOX2 #### [place] [address] NRBCs 0.0 /100 WBC Normal 0 [facility] Comment on above: Performed By: #### U HCG, UAWMIC, UTOX2 #### [place] [address] Platelet mean volume Entitic volume (Bld) 10.6 fL Normal 9.0-12.7 [facility] Comment on above: Performed By: #### U HCG, UAWMIC, UTOX2 #### [place] [address] Platelets #/vol (Bld) 191 10*3/uL Normal 150-400 [facility] Comment on above: Performed By: #### U HCG, UAWMIC, UTOX2 #### [place] [address] RBC #/vol (Bld) 4.31 10*6/uL Normal 3.90-5.20 [facility] Comment on above: Performed By: #### U HCG, UAWMIC, UTOX2 #### [place] [address] WBC #/vol (Bld) 9.08 10*3/uL Normal 3.70-11.00 [facility] Comment on above: Performed By: #### U HCG, UAWMIC, UTOX2 #### [place] [address] Comp Metabolic Panelon 08-26 Albumin mass conc 3.6 g/dL Low 3.9-4.9 [facility] Comment on above: Performed By: #### U HCG, UAWMIC, UTOX2 #### [place] [address] ALP enzyme act/vol 112 U/L Normal 34-123 [facility] Comment on above: Performed By: #### U HCG, UAWMIC, UTOX2 #### [place] [address] ALT enzyme act/vol 38 U/L Normal 7-38 [facility] Comment on above: Performed By: #### U HCG, UAWMIC, UTOX2 #### [place] [address] Anion gap molar conc 11 mmol/L Normal 9-18 [facility] Comment on above: Performed By: #### U HCG, UAWMIC, UTOX2 #### [place] [address] AST enzyme act/vol 51 U/L High 13-35 [facility] Comment on above: Performed By: #### U HCG, UAWMIC, UTOX2 #### [place] [address] Bilirubin mass conc 0.3 mg/dL Normal 0.2-1.3 [facility] Comment on above: Performed By: #### U HCG, UAWMIC, UTOX2 #### [place] [address] Calcium mass conc 9.1 mg/dL Normal 8.5-10.2 [facility] Comment on above: Performed By: #### U HCG, UAWMIC, UTOX2 #### [place] [address] Chloride molar conc 103 mmol/L Normal 97-105 [facility] Comment on above: Performed By: #### U HCG, UAWMIC, UTOX2 #### [place] [address] CO2 molar conc 24 mmol/L Normal 22-30 [facility] Comment on above: Performed By: #### U HCG, UAWMIC, UTOX2 #### [place] [address] Creatinine mass conc 0.88 mg/dL Normal 0.58-0.96 [facility] Comment on above: Performed By: #### U HCG, UAWMIC, UTOX2 #### [place] [address] eGFR- Amer. >60 Normal >60 [facility] Comment on above: Performed By: #### U HCG, UAWMIC, UTOX2 #### [place] [address] GFR/1.73 sq M predicted among non-blacks MDRD vol rate/area (S/P/Bld) mL/min/{1.73_m2} Normal >60 [facility] Comment on above: Result Comment: eGFR (Estimated [...] By: #### U HCG, UAWMIC, UTOX2 #### [place] [address] Glucose mass conc 115 mg/dL High 74-99 [facility] Comment on above: Performed By: #### U HCG, UAWMIC, UTOX2 #### [place] [address] Potassium molar conc 4.1 mmol/L Normal 3.7-5.1 [facility] Comment on above: Performed By: #### U HCG, UAWMIC, UTOX2 #### [place] [address] Protein mass conc 5.6 g/dL Low 6.3-8.0 [facility] Comment on above: Performed By: #### U HCG, UAWMIC, UTOX2 #### [place] [address] Sodium molar conc 138 mmol/L Normal 136-144 [facility] Comment on above: Performed By: #### U HCG, UAWMIC, UTOX2 #### [place] [address] Urea nitrogen mass conc 9 mg/dL Normal 7-21 L [facility] Comment on above: Performed By: #### U HCG, UAWMIC, UTOX2 #### [place] [address] Magnesiumon 08-26-2018 Magnesium mass conc 2.4 mg/dL High 1.7-2.3 [facility] Comment on above: Performed By: #### U HCG, UAWMIC, UTOX2 #### [place] [address] PROGRESSon 08-26-2018 Protein mass conc HNO ID: [id number] Author: Lian Aparicio Service: ? Author Type: Physician Type: Progress Notes Filed: 10/20/2018 9:49 PM Note Text: [facility] - General Progress Note KAREN SOLIS : 1970 AGE: 48 SEX: F CSN: [id number] [facility]: [facility] [place] [facility] [place] PH[place]ICIAN: Bill Patten M.D. DATE OF [...] edema Lian Aparicio M.D. Internal Medicine Normal [facility] Phosphoruson 08-26-2018 Phosphate mass conc 4.4 mg/dL Normal 2.7-4.8 [facility] Comment on above: Performed By: #### U HCG, UAWMIC, UTOX2 #### [facility] [address] [address] ALLIED HEALTHon 08-25-2018 ALLIED HEALTH HNO ID: [id number] Author: Katy (Therapist) Ct Service: Art Therapy [...] back of her poem. SIGNATURE: BUNNY Dean [facility] PATIENT NAME: Karen Solis DATE: August 25, 2018 TIME: 3:[address] [facility] HNO ID: [id number] Author: Lashell (Therapist) Britton Service: Art Therapy [...] happy she is alive. SIGNATURE: Lashell Jarquin [facility] A[facility] PATIENT NAME: Karen Solis DATE: August 25, 2018 TIME: 1:[address] [facility] HNO ID: [id number] Author: Katy (Therapist) Ct Service: Art Therapy [...] music and the groups. SIGNATURE: BUNNY Dean, [facility] PATIENT NAME: Karen Solis DATE: August 25, 2018 TIME: 11:24 AM [facility] NURSING PROGon 08-25-2018 Protein mass conc HNO ID: [id number] Author: Padilla (Rn) MANI Lewis Service: Nursing Author Type: Registered Nurse Type: Nursing Progress Note Filed: 08/25/2018 6:56 AM Note Text: Nursing Progress Note Patient Name: Karen Solis Patient Location: [address]/[place] [address]* Daily Note:[id number] At beginning of shift pt observed to [...] note was completed by: Padilla Lewis RN [facility] ALLIED HEALTHon 08-24-2018 ALLIED HEALTH HNO ID: [id number] Author: RASHMI Alanis Service: Recreational Therapy Author [...] DATE: August 24, 2018 TIME: 3:36 PM [facility] ALLIED HEALTH HNO ID: [id number] Author: Gifty De Luna (Lsw) Service: Art [...] was thankful for the group. SIGNATURE: Gifty eD Luna LPC, ATR, ARCHEOLOGIST PATIENT NAME: Karen Solis DATE: August 24, 2018 TIME: 4:[address] [facility] HNO ID: [id number] Author: Cathy Anna-Black Elliott Service: Art Therapy [...] DATE: August 24, 2018 TIME: 2:[address] [facility] HNO ID: [id number] Author: Gifty De Luna (Lsw) Service: Art [...] and meetings. SIGNATURE: Gifty De Luna, ELOY,ATR, ARCHEOLOGIST PATIENT NAME: Karen Solis DATE: August 24, 2018 TIME: 1:12 PM [facility] Hepatitis Remote Panelon HBsAg Negative Normal Negative [facility] Comment on above: Performed By: #### U HCG, UAWMIC, UTOX2 #### [place] [address] Hep B Core Ab,Total Negative Normal Negative [facility] Comment on above: Performed By: #### U HCG, UAWMIC, UTOX2 #### [place] [address] Hepatitis C Ab IA Negative Normal Negative [facility] Comment on above: Performed By: #### U HCG, UAWMIC, UTOX2 #### [place] [address] HepB Surface Ab,Qual Negative Normal Negative [facility] Comment on above: Result Comment: CELSO TIGRISEL Performed By: #### U HCG, UAWMIC, UTOX2 #### [place] [address] NURSING PROGon 08-24-2018 Protein mass conc HNO ID: [id number] Author: Padilla (Rn) MANI Lewis Service: Nursing Author Type: Registered Nurse Type: Nursing Progress Note Filed: 08/24/2018 7:01 AM Note Text: Nursing Progress Note Patient Name: Karen Solis Patient Location: [id number]* Daily Note:[id number] At beginning of shift pt observed to [...] note was completed by: Padilla Lewis RN [facility] PROGRESSon 08-24-2018 Protein mass conc HNO ID: [id number] Author: Lian Aparicio Service: ? Author Type: Physician Type: Progress Notes Filed: 10/17/2018 11:37 PM Note Text: [facility] - General Progress Note KAREN SOLIS : 1970 AGE: 48 SEX: F CSN: [id number] [facility]: [facility] [place] [facility] [place] PH[place]ICIAN: Bill Patten M.D. DATE OF [...] Date - Chronic obstructive pulmonary disease (COPD) ([facility]) Social History Socioeconomic History Marital status: Unknown [...] edema Lian Aparicio M.D. Internal Medicine Normal [facility] Syphilis IgG with Confon Syphilis IgG <0.2 [facility] Comment on above: Result Comment: Anti body index is interpreted as follows: Non reactive SPECIMENS <=0.8 Weak reactive SPECIMENS 0.9 to 5.9 Reactive SPECIMENS >=6.0 Performed By: #### U HCG, UAWMIC, UTOX2 #### [place] [address] [place] [address] Syphilis IgG, Qual Nonreactive Normal Nonreactive [facility] Comment on above: Result Comment: No s erological evidence of infection with T. pallidum. Performed By: #### U HCG, UAWMIC, UTOX2 #### [place] [address] XR LUMBAR 2V AP/LATon 2018 XR LUMBAR [...] Left-sided convex curvature of the lumbar spine. Scouts: SONNY Transcribe Date/Time: Aug 24 2018 9:30A Dictated by : ARMAND EVANS MD This examination was interpreted and the report reviewed and electronically signed by: ARMAND EVANS MD on Aug 24 2018 9:33AM EST [id number] [facility] HNO ID: [id number] Author: Cathy MoctezumaPsychiatric-AtrBlack Hess Service: Art Therapy Author Type: Art [...] to feel little better. SIGNATURE: Cathy Corley [facility] PATIENT NAME: Karen Solis DATE: August 23, 2018 TIME: 5:[address] [facility] HNO ID: [id number] Author: Moncho Hollins (Chaplain) Service: Spiritual Care Author Type: Real Estate Branch Manager Type: Allied Health Filed: 08/23/2018 12:24 PM [...] DATE: August 23, 2018 TIME: 12:[address] [facility] HNO ID: [id number] Author: Gifty De Luna (Lsw) Service: Art Therapy Author Type: Art Therapist Type: [facility] Filed: 08/23/2018 11:16 AM Note Text: GROUP PROGRESS NOTE SERVICE DATE: 08/23/2018 SERVICE TIME: 9:30 AM Length (minutes): 60 Attendance: Sleeping Participation Level: Did Not Attend GROUP PARTICIPATION: Group Topics: Community Meeting: Reflective Quotes, Symptom AND Mood Check-In and Treatment Progress SIGNATURE: Gifty De Luna LPC,ATR, ARCHEOLOGIST PATIENT NAME: Karen Solis DATE: August 23, 2018 TIME: 11:15 AM [facility] PROGRESSon 08-23-2018 Protein mass conc HNO ID: [id number] Author: Patsy Juarez Service: General Internal Medicine [...] Patsy Juarez MD DATE: August 23, 2018 [facility] PROGRESSon 08-22-2018 Protein mass conc HNO ID: [id number] Author: Lian Aparicio Service: ? Author Type: Physician Type: Progress Notes Filed: 10/18/2018 10:26 PM Note Text: [facility] - General Progress Note KAREN SOLIS : 1970 AGE: 48 SEX: F CSN: [id number] [facility]: [facility] [place] [facility] [place] PHYSICIAN: Bill Patten M.D. DATE OF [...] Date - Chronic obstructive pulmonary disease (COPD) ([facility]) Social History Socioeconomic History Marital status: Unknown [...] / radial Lian Aparicio M.D. Internal Medicine [facility] HNO ID: [id number] Author: Gifty De Luna (Lsw) Service: Art [...] therapist attempted to assess. Pt last on [facility] 2012. Therapist will continue to encourage her to attend groups once she is awake/alert. SIGNATURE: Gifty De Luna LPC, ATR, LSW PATIENT NAME: Karen Solis DATE: August 21, 2018 TIME: 1:48 PM PAGER/CONTACT #: [facility] HNO ID: [id number] Author: Gifty De Luna (Lsw) Service: Art [...] DATE: August 21, 2018 TIME: 2:08 PM [facility] HEALTH HNO ID: [id number] Author: Gifty De Luna (Lsw) Service: Art Therapy Author Type: Art Therapist Type: Allied Health Filed: 08/21/2018 11:22 AM Note Text: GROUP PROGRESS NOTE SERVICE DATE: 08/21/2018 SERVICE TIME: 11:00 AM Length (minutes): 30 Attendance: Sleeping Participation Level: Did Not Attend GROUP PARTICIPATION: Group Topics: Community Resources: Alcoholics Anonymous SIGNATURE: Gifty De Luna LPC,ATR, ARCHEOLOGIST PATIENT NAME: Karen Solis DATE: August 21, 2018 TIME: 11:[address] [facility] HNO ID: [id number] Author: Gifty De Luna (Lsw) Service: Art Therapy Author Type: Art Therapist Type: Allied Health Filed: 08/21/2018 9:43 AM Note Text: GROUP PROGRESS NOTE SERVICE DATE: 08/21/2018 SERVICE TIME: 9:15 AM Length (minutes): 15 Attendance: Sleeping Participation Level: Did Not Attend GROUP PARTICIPATION: Group Topics: Community Meeting: Reflective Quotes, Symptom AND Mood Check-In and Treatment Progress SIGNATURE: Gifty De Luna LPC,ATR, ARCHEOLOGIST PATIENT NAME: Karen Solis DATE: August 21, 2018 TIME: 9:43 AM [facility] CBC and Differentialon 08-21 Abs Baso 0.05 k/uL Normal <0.11 [facility] Comment on above: Performed By: #### C BCDIF, ALCO, CMP, MG1 #### [place] [address] Abs [place] 0.69 k/uL Normal <0.87 [facility] Comment on above: Performed By: #### C BCDIF, ALCO, CMP, MG1 #### [place] [address] Abs Neut 3.91 k/uL Normal 1.45-7.50 [facility] Comment on above: Performed By: #### C BCDIF, ALCO, CMP, MG1 #### [place] [address] Basophils/100 WBC (Bld) 0.8 % Normal [facility] Comment on above: Performed By: #### C BCDIF, ALCO, CMP, MG1 #### [place] [address] Eosinophils #/vol (Bld) 0.12 10*3/uL Normal <0.46 [facility] Comment on above: Performed By: #### C BCDIF, ALCO, CMP, MG1 #### [place] [address] Eosinophils/100 WBC (Bld) 1.8 % Normal [facility] Comment on above: Performed By: #### C BCDIF, ALCO, CMP, MG1 #### [place] [address] Erythrocyte distribution width Ratio (RBC) 14.2 % Normal 11.5-15.0 [facility] Comment on above: Performed By: #### C BCDIF, ALCO, CMP, MG1 #### [place] [address] Hematocrit Volume Fraction (Bld) 47.2 % High 36.0-46.0 [facility] Comment on above: Performed By: #### C BCDIF, ALCO, CMP, MG1 #### [place] [address] Hemoglobin mass conc (Bld) 17.0 g/dL High 11.5-15.5 [facility] Comment on above: Performed By: #### C BCDIF, ALCO, CMP, MG1 #### [place] [address] Lymphocytes #/vol (Bld) 1.89 10*3/uL Normal 1.00-4.00 [facility] Comment on above: Performed By: #### C BCDIF, ALCO, CMP, MG1 #### [place] [address] Lymphocytes/100 WBC (Bld) 28.4 % Normal [facility] Comment on above: Performed By: #### C BCDIF, ALCO, CMP, MG1 #### [place] [address] MCH Entitic mass (RBC) 32.7 pG Normal 26.0-34.0 [facility] Comment on above: Performed By: #### C BCDIF, ALCO, CMP, MG1 #### [place] [address] MCHC mass conc (RBC) 36.0 g/dL Normal 30.5-36.0 [facility] Comment on above: Performed By: #### C BCDIF, ALCO, CMP, MG1 #### [place] [address] MCV Entitic volume (RBC) 90.8 fL Normal 80.0-100.0 [facility] Comment on above: Performed By: #### C BCDIF, ALCO, CMP, MG1 #### [place] [address] Monocytes/100 WBC (Bld) 10.4 % Normal [facility] Comment on above: Performed By: #### C BCDIF, ALCO, CMP, MG1 #### [place] [address] Neutrophils/100 WBC (Bld) 58.6 % Normal [facility] Comment on above: Performed By: #### C BCDIF, ALCO, CMP, MG1 #### [place] [address] NRBCs 0.0 /100 WBC Normal 0 [facility] Comment on above: Performed By: #### C BCDIF, ALCO, CMP, MG1 #### [place] [address] Platelet mean volume Entitic volume (Bld) 9.1 fL Normal 9.0-12.7 [facility] Comment on above: Performed By: #### C BCDIF, ALCO, CMP, MG1 #### [place] [address] Platelets #/vol (Bld) 278 10*3/uL Normal 150-400 [facility] Comment on above: Performed By: #### C BCDIF, ALCO, CMP, MG1 #### [place] [address] RBC #/vol (Bld) 5.20 10*6/uL Normal 3.90-5.20 [facility] Comment on above: Performed By: #### C BCDIF, ALCO, CMP, MG1 #### [place] [address] WBC #/vol (Bld) 6.66 10*3/uL Normal 3.70-11.00 [facility] Comment on above: Performed By: #### C BCDIF, ALCO, CMP, MG1 #### [place] [address] Comp Metabolic Panelon 08-21 Albumin mass conc 4.6 g/dL Normal 3.9-4.9 [facility] Comment on above: Performed By: #### C BCDIF, ALCO, CMP, MG1 ####[place] [id number] ALP enzyme act/vol 152 U/L High 34-123 [facility] Comment on above: Performed By: #### C BCDIF, ALCO, CMP, MG1 ####[place] [id number] ALT enzyme act/vol 31 U/L Normal 7-38 [facility] Comment on above: Performed By: #### C BCDIF, ALCO, CMP, MG1 ####[place] [id number] Anion gap molar conc 13 mmol/L Normal 9-18 [facility] Comment on above: Performed By: #### C BCDIF, ALCO, CMP, MG1 ####[place] [id number] AST enzyme act/vol 44 U/L High 13-35 [facility] Comment on above: Performed By: #### C BCDIF, ALCO, CMP, MG1 ####[place] [id number] Bilirubin mass conc 0.2 mg/dL Normal 0.2-1.3 [facility] Comment on above: Performed By: #### C BCDIF, ALCO, CMP, MG1 ####[place] [id number] Calcium mass conc 9.1 mg/dL Normal 8.5-10.2 [facility] Comment on above: Performed By: #### C BCDIF, ALCO, CMP, MG1 ####[place] [id number] Chloride molar conc 97 mmol/L Normal 97-105 [facility] Comment on above: Performed By: #### C BCDIF, ALCO, CMP, MG1 ####[place] [id number] CO2 molar conc 26 mmol/L Normal 22-30 [facility] Comment on above: Performed By: #### C BCDIF, ALCO, CMP, MG1 ####[place] [id number] Creatinine mass conc 0.69 mg/dL Normal 0.58-0.96 [facility] Comment on above: Performed By: #### C BCDIF, ALCO, CMP, MG1 ####[place] [id number] eGFR- Amer. >60 Normal >60 [facility] Comment on above: Performed By: #### C BCDIF, ALCO, CMP, MG1 ####[place] [id number] GFR/1.73 sq M predicted among non-blacks MDRD vol rate/area (S/P/Bld) mL/min/{1.73_m2} Normal >60 [facility] Comment on above: Result Comment: eGFR (Estimated [...] By: #### C BCDIF, ALCO, CMP, MG1 ####[place] [place] [id number] Glucose mass conc 124 mg/dL High 74-99 [facility] Comment on above: Performed By: #### C BCDIF, ALCO, CMP, MG1 ####[place] [id number] Potassium molar conc 3.6 mmol/L Low 3.7-5.1 [facility] Comment on above: Performed By: #### C BCDIF, ALCO, CMP, MG1 ####[place] [id number] Protein mass conc 7.5 g/dL Normal 6.3-8.0 [facility] Comment on above: Performed By: #### C BCDIF, ALCO, CMP, MG1 ####[place] [id number] Sodium molar conc 136 mmol/L Normal 136-144 [facility] Comment on above: Performed By: #### C BCDIF, ALCO, CMP, MG1 ####[place] [id number] Urea nitrogen mass conc 5 mg/dL Low 7-21 L [facility] Comment on above: Performed By: #### C BCDIF, ALCO, CMP, MG1 ####[facility] [place] [phone] ECG COMPLETEon 08-21-2018 ECG COMPLETE NAME : KAREN SOLIS PID : [id number] : 1970 Gender : Female Race : ORD : [id number] Procedure Date : Aug 20 2018 23:08:21 Edit Date : Aug 22 2018 10:03:53 Diagnosis:SINUS RHYTHM PROBABLE LEFT ATRIAL ABNORMALITY PROBABLE INFERIOR INFARCT, OLD BORDERLINE PROLONGED QT INTERVAL Abnormal ECG No Stemi ROSA MARIA 08/20 @ 2328 Confirmed by DO CRANE NICHOLAS ([id number]), graphics editor DIONY MASCORRO ([id number]) on 08/22/2018 10:03:50 AM Ventricular Rate : 94 BPM Atrial Rate : 94 BPM P-R Interval : 196 ms QRS Duration : 82 ms Q-T Interval : 400 ms QTC Calculation(Bezet) : 500 ms P [place] : 74 degrees R [place] : 23 degrees T [place] : 46 degrees Test Reason : Pre-OP Location : 502 : LUED 5 Overread By : DO CRANE NICHOLAS Edited By : DIONY MASCORRO Referred By : , Acquired by : , [facility] ED NOTEon 08-21-2018 ED NOTE HNO ID: [id number] Author: Mary MoctezumaRn) MANI Quintana Service: (none) Author Type: Registered Nurse Type: ED Notes Filed: 08/21/2018 12:00 AM Note Text: Patient resting in bed, rise and fall of chest observed. Safety maintained and will continue to monitor [facility] ED NOTE HNO ID: [id number] Author: Mary MoctezumaRn) Lilian, MANI Service: (none) Author Type: Registered Nurse Type: ED Notes Filed: 08/20/2018 11:38 PM Note Text: Medication given. Patient educated on medication and verbalized understanding. Patient agreeable with POC. Will continue to monitor. [facility] ED NOTE HNO ID: [id number] Author: Mary MoctezumaRn) Lilian, MANI Service: (none) Author Type: Registered Nurse Type: ED Notes Filed: 08/20/2018 11:26 PM Note Text: Intake at bedside [facility] ED NOTE HNO ID: [id number] Author: Mary (Rn) MANI Quintana Service: (none) Author Type: Registered Nurse Type: ED Notes Filed: 08/20/2018 11:14 PM Note Text: Labs were drawn and sent. [facility] ED NOTE HNO ID: [id number] Author: Mary MoctezumaRn) MANI Quintana Service: (none) Author Type: Registered Nurse Type: ED Notes Filed: 08/20/2018 11:11 PM Note Text: Medication given. Patient educated on medication and verbalized understanding. Patient agreeable with POC. Will continue to monitor. [facility] ED NOTE HNO ID: [id number] Author: Gwendolyn MoctezumaRn) Clem Rod RN Service: Nursing Author Type: Registered Nurse Type: ED Notes Filed: 08/20/2018 10:55 PM Note Text: Clean catch urine specimen obtained and sent. [facility] ED NOTE HNO ID: [id number] Author: Rubén MoctezumaRn) MANI Gray Service: (none) Author Type: Registered Nurse Type: ED Notes Filed: 08/20/2018 10:53 PM Note Text: Patient has an ID Band on, family at bedside, bed in lowest locked position. Patient provided hospital gown and pants and non slip socks. Patient to restroom to provide sample at this time. [facility] ED PROV NOTEon 08-21-2018 Protein mass conc HNO ID: [id number] Author: Ramin Crane DO Service: Emergency Medicine [...] provided by: Patient, medical records and relative cooker pie filling used: No PAST MEDICAL HISTORY Diagnosis Date [...] per minute AXIS: Normal axis INTERVALS: Normal NM interval QRS COMPLEX: Normal ST SEGMENT: Normal [...] DO Ramin Ventura DO 08/20/18 2347 Normal [facility] Ethanolon 08-21-2018 Ethanol mass conc 247 mg/dL High <11 [facility] Comment on above: Performed By: #### C BCDIF, ALCO, CMP, MG1 #### [place] [id number] HCG Qual, Urineon 08-21-2018 HCG.beta subunit ( test) Ql (U) Negative Normal Negative [facility] Comment on above: Performed By: #### U HCG, UAWMIC, UTOX2 #### [address] [address] Magnesiumon 08-21-2018 Magnesium mass conc 2.2 mg/dL Normal 1.7-2.3 [facility] Comment on above: Performed By: #### C BCDIF, ALCO, CMP, MG1 ####[facility] [phone] NURSING PROGon 08-21-2018 Protein mass conc HNO ID: [id number] Author: Padilla (Rn) MANI Lewis Service: Nursing Author Type: Registered Nurse Type: Nursing Progress Note Filed: 08/21/2018 6:37 AM Note Text: Nursing Progress Note Patient Name: Karen Solis Patient Location: [id number]/[facility]-405* SENSITIVE ADRC Nursing Admission Note PATIENT NAME: [...] to toe assessment: Patient presented to the [facility] dressed in a hospital gown [...] note was completed by: Padilla Lewis RN [facility] Protein mass conc HNO ID: [id number] Author: Padilla (Rn) MANI Lewis Service: Nursing Author Type: Registered Nurse Type: Nursing Progress Note Filed: 08/21/2018 6:30 AM Note Text: Nursing Progress Note Patient Name: Karen Solis Patient Location: [address]/[place] [address]* SENSITIVE [facility] SUICIDE RISK ASSESSMENT PATIENT NAME: Karen Solis SERVICE DATE: 08/21/2018 SERVICE TIME: 0410 LETHALITY FACTORS: Access to Means: Any firearms in home?No Moved a firearm recently?No Any current suicide plan not involving firearm? No Is patient an inpatient in [facility]?Yes--does any suicide plan suggest risk [...] Daily Activities?Yes Currently employed?No Adventist Affiliation?Yes Therapeutic Cutler: Does pt believe treatment can help his/her negative feelings?Yes History of good medication compliance in past?Yes FORMULATION OF SUICIDE RISK: low Will any interventions be undertaken to address above-listed Lethality or Protective Factors? Reduce alcohol and drug abuse Consult Pastoral Care to improve mormonism affiliation SIGNATURE: Padilla Lewis RN DATE: August 21, 2018 TIME: 6:27 AM Assessment adapted from Suicide Prevention Toolkit for Implementation of NPSG 15A by [facility] Resources This note was completed by: Padilla Lewis RN [facility] PROGRESSon 08-21-2018 Protein mass conc HNO ID: [id number] Author: Lian Aparicio Service: ? Author Type: Physician Type: Progress Notes Filed: 10/17/2018 7:16 PM Note Text: [facility] - General Progress Note KAREN SOLIS : 1970 AGE: 48 SEX: F CSN: [id number] HOSP SVC: [facility] [place] [facility] [place]ICIAN: Bill Patten M.D. DATE OF [...] aerosol treatment. Lian Aparicio M.D. Internal Medicine JOYNER:[id number] [facility] Protein mass conc HNO ID: [id number] Author: Downtime Note Service: ? Author Type: ? Type: Progress Notes Filed: 08/21/2018 5:27 AM Note Text: Epic Scheduled Downtime: 08/21/2018 1:00:00 AM to 08/21/2018 5:17:00 AM [facility] Toxicology Screen,Uron 08-21 Amphetamines, Urine Negative Normal Negative [facility] Comment on above: Result Comment: Cuto ff threshold at 1000 ng/mL. Performed By: #### U HCG, UAWMIC, UTOX2 #### [place] [phone] Barbiturates, Urine Negative Normal Negative [facility] Comment on above: Result Comment: Cuto ff threshold at 200 ng/mL. Performed By: #### U HCG, UAWMIC, UTOX2 #### [place] [phone] Benzodiazepines, Ur Negative Normal Negative [facility] Comment on above: Result Comment: Cuto ff threshold at 200 ng/mL. Performed By: #### U HCG, UAWMIC, UTOX2 #### [place] [address] Cannabinoids, Urine Negative Normal Negative [facility] Comment on above: Result Comment: Cuto ff threshold at 50 ng/mL. Performed By: #### U HCG, UAWMIC, UTOX2 #### [place] [phone] Cocaine, Urine Negative Normal Negative [facility] Comment on above: Result Comment: Cuto ff threshold at 300 ng/mL. Performed By: #### U HCG, UAWMIC, UTOX2 #### [place] [address] Ethanol, Urine 291 mg/dL High <11 [facility] Comment on above: Performed By: #### U HCG, UAWMIC, UTOX2 #### [place] [address] Opiates, Urine Negative Normal Negative [facility] Comment on above: Result Comment: Cuto ff threshold at 300 ng/mL. Performed By: #### U HCG, UAWMIC, UTOX2 #### [place] [address] Oxycodone, Urine Negative Normal Negative [facility] Comment on above: Result Comment: Cuto ff [...] on the same specimen through Client Services ([phone]) if contacted within 48 hours of initial testing. [1]Substance Abuse and Mental Health Services Administration (2012). Clinical Drug Testing in Primary Care Technical Assistance Publication Series 32. Department of Health and Human Services, [place], p.10. Performed By: #### U HCG, UAWMIC, UTOX2 #### [place] [address] Phencyclidine, Urine Negative Normal Negative [facility] Comment on above: Result Comment: Cuto ff threshold at 25 ng/mL. Performed By: #### U HCG, UAWMIC, UTOX2 #### [place] [address] Urinalysis with Microscopico n 08-21-2018 Bilirubin, Urine Negative Normal Negative [facility] Comment on above: Performed By: #### U HCG, UAWMIC, UTOX2 #### [place] [address] Cast SEE COMMENT Normal 0 [facility] Comment on above: Result Comment: 0 Performed By: #### U HCG, UAWMIC, UTOX2 #### [place] [address] Clarity Nom (U) Clear Normal Clear [facility] Comment on above: Performed By: #### U HCG, UAWMIC, UTOX2 #### [place] [address] Color Nom (U) Straw Critically abnormal Yellow [facility] Comment on above: Performed By: #### U HCG, UAWMIC, UTOX2 #### [place] [address] Epithelial cells LM.HPF #/area (Urine sed) SEE COMMENT Normal [facility] Comment on above: Result Comment: Squa mous 2-5 Performed By: #### U HCG, UAWMIC, UTOX2 #### [place] [address] Glucose Ql (U) Negative Normal Negative [facility] Comment on above: Performed By: #### U HCG, UAWMIC, UTOX2 #### [place] [address] Hemoglobin/Blood,Ur Trace Critically abnormal Negative [facility] Comment on above: Performed By: #### U HCG, UAWMIC, UTOX2 #### [place] [address] Ketones Ql (U) Negative Normal Negative [facility] Comment on above: Performed By: #### U HCG, UAWMIC, UTOX2 #### [place] [address] Leukest Trace Critically abnormal Negative [facility] Comment on above: Performed By: #### U HCG, UAWMIC, UTOX2 #### [place] [address] Nitrite Ql (U) Negative Normal Negative [facility] [place] Comment on above: Performed By: #### U HCG, UAWMIC, UTOX2 #### [place] [address] pH (Bld) 6.0 Normal 4.5-8.0 [facility] [place] Comment on above: Performed By: #### U HCG, UAWMIC, UTOX2 #### [place] [address] Protein mass conc (U) Negative Normal Negative [facility] Comment on above: Performed By: #### U HCG, UAWMIC, UTOX2 #### [place] [address] RBC #/vol (U) 0-3 Normal 0-3 [facility] Comment on above: Performed By: #### U HCG, UAWMIC, UTOX2 #### [place] [address] Specific [place], Ur <=1.005 Normal 1.005-1.030 [facility] Comment on above: Performed By: #### U HCG, UAWMIC, UTOX2 #### [place] [address] Urobilinogen Qn (U) 0.2 Normal 0.2-1.0 [facility] Comment on above: Performed By: #### U HCG, UAWMIC, UTOX2 #### [place] [address] WBC #/vol (Bld) 0-5 Normal 0-5 [facility] Comment on above: Performed By: #### U HCG, UAWMIC, UTOX2 #### [place] [address] HISTORY PHYSICALon 9 HISTORY PHYSICAL HNO ID: [id number] Author: Lian Aparicio Service: ? Author Type: Physician Type: HANDP Filed: 08/23/2018 4:01 PM Note Text: [facility] - History and Physical KAREN SOLIS : 1970 AGE: 48 SEX: F CSN: [id number] [place] [facility] [place] [facility] [place] [facility] [place] PHYSICIAN: NALINI NI ADMIT DATE: 08/20/2018 [...] Date - Chronic obstructive pulmonary disease (COPD) ([facility]) Social History Socioeconomic History Marital status: Spouse [...] reviewed and negative. [facility] Most recent images [...] F/u cmp Lian Aparicio M.D. Internal Medicine [facility] Vital Signs Date Time Vital Sign Value Performing Clinician Facility 11-06-2023 10:56-0400 Body height 170.18 cm [facility] 11-06-2023 10:56-0400 Body mass index (BMI) [Ratio] 23.6 kg/m2 [facility] 11-06-2023 10:56-0400 Body weight 68.49 kg [facility] 11-06-2023 10:56-0400 Diastolic blood pressure 76 mm[Hg] [facility] 11-06-2023 10:56-0400 Heart rate 72 /min [facility] 11-06-2023 10:56-0400 Respiratory rate 18 /min [facility] 11-06-2023 10:56-0400 SaO2% (BldA) [Mass fraction] 99 % [facility] 11-06-2023 10:56-0400 Systolic blood pressure 118 mm[Hg] [facility] 07-20-2023 13:15-0500 Body height 170.18 cm Isiah Purcell Other [facility] 07-20-2023 13:15-0500 Body mass index (BMI) [Ratio] 22.71 kg/m2 Isiah Purcell Other [employer] Other 07-20-2023 13:15-0500 Body weight 65.77 kg Isiah Purcell Other [facility] 06-10-2023 14:45-0500 Diastolic blood pressure 82 mm[Hg] DO Christin Grullon Work Phone: [facility] 06-10-2023 14:45-0500 Heart rate 70 /min DO Christin Grullon Work Phone: [facility] 12-20-2023 14:45-0500 Respiratory rate 16 /min DO Christin Grullon Work Phone: [facility] 06-10-2023 14:45-0500 SaO2% (BldA) [Mass fraction] 96 % DO Christin Grullon Work Phone: [facility] 06-10-2023 14:45-0500 Systolic blood pressure 132 mm[Hg] DO Christin Grullon Work Phone: [facility] 06-10-2023 12:17-0500 Body temperature 97.7 [degF] DO Christin Grullon Work Phone: [facility] 06-10-2023 12:17-0500 Inhaled oxygen flow rate 6 L/min DO Christin Grullon Work Phone: [facility] 06-10-2023 09:27-0500 Body height 167.64 cm DO Christin Grullon Work Phone: [facility] 06-10-2023 09:27-0500 Body mass index (BMI) [Ratio] 23.5 kg/m2 DO Christin Grullon Work Phone: [facility] 06-10-2023 09:27-0500 Body weight 66 kg DO Christin Grullon Work Phone: [facility] 05-25-2023 10:15-0500 Body height 170.18 cm Isiah Purcell Other [employer] Other 05-25-2023 10:15-0500 Body mass index (BMI) [Ratio] 23.02 kg/m2 Isiah Purcell Other [employer] Other 05-25-2023 10:15-0500 Body weight 66.68 kg Isiah Purcell Other [employer] Other 05-05-2023 09:20-0500 Diastolic blood pressure 74 mm[Hg] DO Christin Grullon Work Phone: [facility] 05-05-2023 09:20-0500 Heart rate 66 /min DO Christin Grullon Work Phone: [facility] 05-05-2023 09:20-0500 Respiratory rate 16 /min DO Christin Grullon Work Phone: [facility] 05-05-2023 09:20-0500 SaO2% (BldA) [Mass fraction] 100 % DO Christin Grullon Work Phone: [facility] 05-05-2023 09:20-0500 Systolic blood pressure 120 mm[Hg] DO Christin Grullon Work Phone: [facility] 05-05-2023 08:42-0500 Inhaled oxygen flow rate 3 L/min DO Christin Grullon Work Phone: [facility] 05-05-2023 07:59-0500 Body height 167.64 cm DO Christin Grullon Work Phone: [facility] 05-05-2023 07:59-0500 Body weight 63.5 kg DO Christin Grullon Work Phone: [facility] 03-17-2023 14:30-0400 Body height 170.18 cm Christin Mead Other [employer] Other 02-24-2023 14:20-0400 Body height 170.18 cm Clovis Andersen Other [employer] Other 02-24-2023 14:20-0400 Body mass index (BMI) [Ratio] 23.02 kg/m2 Clovis Andersen Other [employer] Other 02-24-2023 14:20-0400 Body weight 66.68 kg Clovis Andersen Other [employer] Other 02-24-2023 14:20-0400 Diastolic blood pressure 70 mm[Hg] Clovis Andersen Other [employer] Other 02-24-2023 14:20-0400 Systolic blood pressure 104 mm[Hg] Clovis Andersen Other [employer] Other 12-05-2022 12:00-0400 Body height 170.18 cm Christin Grullon Other [employer] Other 12-05-2022 12:00-0400 Body mass index (BMI) [Ratio] 20.83 kg/m2 Christin Grullon Other [employer] Other 12-05-2022 12:00-0400 Body weight 60.33 kg Christin Grullon Other [employer] Other 12-05-2022 12:00-0400 Diastolic blood pressure 62 mm[Hg] Christin Grullon Other [employer] Other 12-05-2022 12:00-0400 Respiratory rate 18 /min Christin Grullon Other [employer] Other 12-05-2022 12:00-0400 SaO2% (BldA) [Mass fraction] 98 % Christin Grullon Other [employer] Other 12-05-2022 12:00-0400 Systolic blood pressure 118 mm[Hg] Christin Grullon Other [employer] Other 09-26-2022 11:00-0400 Body height 170.18 cm Pratik Cross Other [employer] Other 09-26-2022 11:00-0400 Body mass index (BMI) [Ratio] 20.36 kg/m2 Pratik Cross Other [employer] Other 09-26-2022 11:00-0400 Body weight 58.97 kg Pratik Cross Other [employer] Other 07-16-2022 16:30-0500 Body height 170.18 cm Christin Grullon Other [employer] Other 07-16-2022 16:30-0500 Body mass index (BMI) [Ratio] 19.58 kg/m2 Christin Grullon Other [employer] Other 07-16-2022 16:30-0500 Body weight 56.7 kg Christin Grullon Other [employer] Other 07-16-2022 16:30-0500 Diastolic blood pressure 82 mm[Hg] Christin Grullon Other [employer] Other 07-16-2022 16:30-0500 Respiratory rate 18 /min Christin Grullon Other [employer] Other 07-16-2022 16:30-0500 SaO2% (BldA) [Mass fraction] 98 % Christin Grullon Other [employer] Other 07-16-2022 16:30-0500 Systolic blood pressure 136 mm[Hg] Christin Grullon Other [employer] Other 07-14-2022 11:00-0500 Body temperature 97.7 [degF] DO Christin Grullon Work Phone: [facility] 07-14-2022 11:00-0500 Diastolic blood pressure 75 mm[Hg] DO Christin Grullon Work Phone: [facility] 07-14-2022 11:00-0500 Heart rate 72 /min DO Christin Grullon Work Phone: [facility] 07-14-2022 11:00-0500 Respiratory rate 20 /min DO Christin Grullon Work Phone: [facility] 07-14-2022 11:00-0500 SaO2% (BldA) [Mass fraction] 98 % DO Christin Grullon Work Phone: [facility] 07-14-2022 11:00-0500 Systolic blood pressure 126 mm[Hg] DO Christin Grullon Work Phone: [facility] 07-10-2022 16:43-0500 Body weight 0 kg DO Christin Grullon Work Phone: [facility] 05-19-2022 14:15-0500 Body height 170.18 cm Christin Grullon Other [employer] Other 05-19-2022 14:15-0500 Body mass index (BMI) [Ratio] 19.73 kg/m2 Christin Grullon Other [employer] Other 05-19-2022 14:15-0500 Body weight 57.15 kg Christin Grullon Other [employer] Other 05-19-2022 14:15-0500 Diastolic blood pressure 77 mm[Hg] Christin Grullon Other [employer] Other 05-19-2022 14:15-0500 Respiratory rate 18 /min Christin Grullon Other [employer] Other 05-19-2022 14:15-0500 SaO2% (BldA) [Mass fraction] 99 % Christin Anoop Other [employer] Other 05-19-2022 14:15-0500 Systolic blood pressure 135 mm[Hg] Christin Grullon Other [employer] Other 05-01-2021 11:15-0500 Body height 170.18 cm Christin Grullon Other [employer] Other 05-01-2021 11:15-0500 Body mass index (BMI) [Ratio] 17.85 kg/m2 Christin Grullon Other [employer] Other 05-01-2021 11:15-0500 Body temperature 97.8 [degF] Christin Grullon Other [employer] Other 05-01-2021 11:15-0500 Body weight 51.71 kg Christin Grullon Other [employer] Other 05-01-2021 11:15-0500 Diastolic blood pressure 84 mm[Hg] Christin Grullon Other [employer] Other 05-01-2021 11:15-0500 Respiratory rate 16 /min Christin Grullon Other [employer] Other 05-01-2021 11:15-0500 SaO2% (BldA) [Mass fraction] 100 % Christin Grullon Other [employer] Other 05-01-2021 11:15-0500 Systolic blood pressure 128 mm[Hg] Christin Grullon Other [employer] Other 03-20-2021 14:15-0400 Body height 170.18 cm Christin Grullon Other [employer] Other 03-20-2021 14:15-0400 Body mass index (BMI) [Ratio] 18.32 kg/m2 Christin Grullon Other [employer] Other 03-20-2021 14:15-0400 Body temperature 99 [degF] Christin Grullon Other [employer] Other 03-20-2021 14:15-0400 Body weight 53.07 kg Christin Grullon Other [employer] Other 03-20-2021 14:15-0400 Diastolic blood pressure 84 mm[Hg] Christin Grullon Other [employer] Other 03-20-2021 14:15-0400 Respiratory rate 16 /min Christin Grullon Other [employer] Other 03-20-2021 14:15-0400 SaO2% (BldA) [Mass fraction] 98 % Christin Grullon Other [employer] Other 03-20-2021 14:15-0400 Systolic blood pressure 118 mm[Hg] Christin Grullon Other [employer] Other Encounters Encounter Date Encounter Type Care Provider Facility Start: 12-14-2023 End: 12-14-2023 ambulatory Damien Pastrana MD Facility:[facility] Start: 11-09-2023 End: 11-09-2023 ambulatory [facility] Work Phone: Start: 11-09-2023 End: 11-09-2023 Patient encounter procedure [facility] Work Phone: Start: 11-06-2023 End: 11-06-2023 ambulatory [facility] Work Phone: Start: 11-06-2023 End: 11-06-2023 Patient encounter procedure [facility] Physician [facility] [place] Work Phone: Start: 10-14-2023 End: 10-14-2023 ambulatory [facility] Work Phone: Start: 10-14-2023 End: 10-14-2023 Patient encounter procedure [facility] Physician [facility] Work Phone: Start: 10-14-2023 Non-patient / Non-visit [facility] Physician [facility] Work Phone: Start: 09-30-2023 Non-patient / Non-visit [facility] Work [facility]: Start: 09-16-2023 End: 09-16-2023 ambulatory DO Christin Grullon Work Phone: [facility] Work Phone: Start: 09-16-2023 End: 09-16-2023 Patient encounter procedure DO Christin Grullon Work Phone: [facility] Physician [facility] Work Phone: Start: 09-16-2023 Non-patient / Non-visit [facility] Physician [facility] Work Phone: Start: 09-14-2023 Non-patient / Non-visit DO Bne Grullon Work Phone: [facility] Work Phone: Start: 08-27-2023 End: 08-27-2023 Patient encounter procedure DO Christin Grullon Work Phone: [facility] Physician [facility] [place] Work Phone: Start: 07-20-2023 End: 07-20-2023 ambulatory Isiah Purcell Other [employer] Other Start: 07-20-2023 Postop follow up vis it related to original px Isiah Purcell [facility] Start: 07-20-2023 End: 07-20-2023 Patient encounter procedure DO Christin Grullon Work Phone: [facility] Physician [facility]- Start: 06-24-2023 End: 06-24-2023 ambulatory Isiah Purcell Other [employer] Other Start: 06-24-2023 Telephone encounter Isiah Wilfredo [facility] Start: 06-23-2023 End: 06-23-2023 ambulatory Isiah Purcell Facility:[facility] Start: 06-23-2023 Postop follow up vis it related to original px Isiah Purcell [facility] Start: 06-23-2023 End: 06-23-2023 ambulatory DO Christin Grullon Work Phone: [facility] Work Phone: Start: 06-23-2023 End: 06-23-2023 Patient encounter procedure DO Christin Grullon Work Phone: [facility] [place] [facility] Start: 06-23-2023 End: 06-23-2023 Patient encounter procedure DO Christin Grullon Work Phone: [facility]ician [facility] Work Phone: Start: 06-18-2023 End: 06-18-2023 ambulatory Isiah Purcell Other [employer] Other Start: 06-18-2023 Telephone encounter Isiah Purcell [facility] Start: 06-16-2023 End: 06-16-2023 ambulatory Julee Khan Other [employer] Other Start: 06-16-2023 Telephone encounter Julee Khan [facility] Start: 06-10-2023 End: 06-10-2023 ambulatory Isiah Purcell Facility:[facility] Start: 06-10-2023 End: 06-10-2023 Admission to same day surgery center DO Christin Grullon Work Phone: [facility] [place] Start: 06-09-2023 End: 06-09-2023 ambulatory Isiah Purcell Other [employer] Other Start: 06-09-2023 Telephone encounter Isiah Purcell [facility] Start: 06-08-2023 (Procedure) Short Christin Mead [facility] Start: 06-08-2023 End: 06-08-2023 ambulatory Christin Mead Other [employer] Other Start: 06-01-2023 End: 06-01-2023 ambulatory Isiah Purcell Facility:[facility] Start: 06-01-2023 End: 06-01-2023 ambulatory DO Christin Grullon Work Phone: [facility] Work Phone: Start: 06-01-2023 End: 06-01-2023 Patient encounter procedure DO Christin Grullon Work Phone: [facility]-Pre-Surgical Testing Work Phone: Start: 05-26-2023 End: 05-26-2023 ambulatory Christin Mead Other [employer] Other Start: 05-26-2023 Office outpatient vi sit 25 minutes Christin Mead [facility] [place] Start: 05-25-2023 End: 05-25-2023 ambulatory Isiah Purcell Other [employer] Other Start: 05-25-2023 Encounter by cresencio Grullon [facility] Family [facility] [place] Start: 05-25-2023 Encounter for other preprocedural examination Isiah Purcell [facility] Start: 05-25-2023 Office outpatient vi sit 40 minutes Isiah Purcell [facility] Start: 05-05-2023 (Procedure) Short Christin Mead [facility] Start: 05-05-2023 End: 05-05-2023 ambulatory Christin Alyce Facility:[facility] Start: 05-05-2023 End: 05-05-2023 Admission to same day surgery center DO Christin Grullon Work Phone: [facility] Work Phone: Start: 05-05-2023 End: 05-05-2023 ambulatory DO Christin Grullon Work Phone: [facility] Work Phone: Start: 05-04-2023 End: 05-04-2023 ambulatory Christin Alexparag Other [employer] Other Start: 05-04-2023 Telephone encounter Christin TAN G [facility] Start: 04-29-2023 End: 04-29-2023 ambulatory Pratik Cross Other [employer] Other Start: 04-29-2023 Office outpatient vi sit 25 minutes Pratik Cross [facility] Start: 04-03-2023 End: 04-03-2023 ambulatory Pratik Cross Other [employer] Other Start: 04-03-2023 Telephone encounter Pratik TAN G [facility] Start: 04-02-2023 End: 04-02-2023 ambulatory Christin Grullon Facility:[facility] Start: 04-02-2023 End: 04-02-2023 ambulatory DO Christin Grullon Work Phone: [facility] Work Phone: Start: 04-02-2023 End: 04-02-2023 Patient encounter procedure DO Christin Grullon Work Phone: [facility] [address] Work Phone: Start: 03-17-2023 End: 03-17-2023 ambulatory Christin Mead Other [employer] Other Start: 03-17-2023 Office outpatient ne w 45 minutes Christin Mead [facility] [place] Start: 03-17-2023 Telephone encounter Christin Reyes [employer] Start: 02-24-2023 End: 02-24-2023 ambulatory Gwendolyn Santillanoll Facility:[facility] Start: 02-24-2023 End: 02-24-2023 Patient encounter procedure DO Christin Grullon Work Phone: [facility] [address] Work Phone: Start: 02-24-2023 End: 02-24-2023 ambulatory DO Christin Grullon Work Phone: [facility] Work Phone: Start: 02-24-2023 Office outpatient ne w 30 minutes Clovis Andersen [facility] Neurosurgery Start: 12-31-2022 End: 12-31-2022 ambulatory Christin Grullon Other [employer] Other Start: 12-31-2022 Telephone encounter Christin Reyes [facility] [place] Start: 12-22-2022 End: 12-22-2022 ambulatory Christin Grullon Other [employer] Other Start: 12-22-2022 Telephone encounter Christin Reyes [facility] [place] Start: 12-05-2022 End: 12-05-2022 ambulatory Christin Grullon Other [employer] Other Start: 12-05-2022 Office outpatient vi sit 15 minutes Christin Grullon [facility] Family [facility] [place] Start: 09-26-2022 End: 09-26-2022 ambulatory Pratik Cross Other [employer] Other Start: 09-26-2022 Office outpatient ne w 45 minutes [facility] Start: 09-24-2022 End: 09-24-2022 ambulatory Christin Grullon Facility:[facility] Start: 09-24-2022 End: 09-24-2022 ambulatory DO Christin Grullon Work Phone: [facility] Work Phone: Start: 09-24-2022 End: 09-24-2022 Patient encounter procedure DO Christin Grullon Work Phone: [facility] [address] Work Phone: Start: 07-31-2022 End: 07-31-2022 ambulatory Christin Grullon Other [employer] Other Start: 07-31-2022 Telephone encounter Christin Reyes [facility] [place] Start: 07-30-2022 End: 07-30-2022 ambulatory Christin Grullon Facility:[facility] Start: 07-30-2022 End: 07-30-2022 ambulatory DO Christin Grullon Work Phone: [facility] Work Phone: Start: 07-30-2022 End: 07-30-2022 Patient encounter procedure DO Christin Grullon Work Phone: [facility] [address] Work Phone: Start: 07-21-2022 Encounter for preprocedural laboratory examination CINDY RODRIGEZ [facility] Start: 07-21-2022 End: 07-21-2022 ambulatory CINDY RODRIGEZ Facility:[facility] Start: 07-18-2022 End: 07-19-2022 ambulatory CINDY RODRIGEZ Facility:[facility] Start: 07-18-2022 End: 07-19-2022 Encounter for preprocedural laboratory examination CINDY RODRIGEZ Facility:[facility] Start: 07-16-2022 End: 07-16-2022 ambulatory Christin Grullon Other [employer] Other Start: 07-16-2022 Office outpatient vi sit 25 minutes Christin AGUILAR [facility] Start: 07-14-2022 End: 07-15-2022 ambulatory Jose Itzkokstz Facility:[facility] Start: 07-14-2022 End: 07-14-2022 Admission to same day surgery center DO Christin Grullon Work Phone: [facility] Start: 07-14-2022 End: 07-14-2022 ambulatory DO Christin Grullon Work Phone: [facility] Work Phone: Start: 07-11-2022 End: 07-12-2022 ambulatory CINDY Stone [facility] Facility: Start: 07-10-2022 End: 07-10-2022 ambulatory Jose Carlton Facility:[facility] Start: 07-10-2022 End: 07-10-2022 ambulatory DO Christin Grullon Work Phone: [facility] Work Phone: Start: 07-10-2022 End: 07-10-2022 Patient encounter procedure DO Christin Grullon Work Phone: [facility] Work Phone: Start: 07-08-2022 End: 07-08-2022 Patient encounter procedure DO Christin Grullon Work Phone: [facility] Work Phone: Start: 07-08-2022 End: 07-08-2022 ambulatory Christin Grullon [facility] [employer] Other Start: 07-08-2022 Telephone encounter Christin Reyes [facility] [place] Start: 07-04-2022 End: 07-05-2022 ambulatory CINDY Stone [facility] Facility:[facility] Start: 06-30-2022 End: 06-30-2022 ambulatory Christin Grullon Other [employer] Other Start: 06-30-2022 Telephone encounter Christin Reyes [facility] [place] Start: 06-25-2022 End: 06-26-2022 ambulatory CINDY Stone [facility] Facility:[facility] Start: 06-24-2022 End: 06-24-2022 ambulatory Christin Grullon Other [employer] Other Start: 06-24-2022 Telephone encounter Christin Reyes [facility] [place] Start: 06-19-2022 End: 06-19-2022 Patient encounter procedure DO Christin Grullon Work Phone: [facility] Work Phone: Start: 06-03-2022 End: 06-03-2022 ambulatory Christin Grullon Other [employer] Other Start: 06-03-2022 Telephone encounter Christin Reyes [facility] [place] Start: 05-28-2022 End: 05-29-2022 ambulatory CINDY Stone [facility] Facility:[facility] Start: 05-20-2022 End: 05-20-2022 ambulatory Christin Grullon Other [employer] Other Start: 05-20-2022 Telephone encounter Christin Reyes [facility] [place] Start: 05-19-2022 Office outpatient vi sit 15 minutes Christin AGUILAR [facility] [place] Start: 05-19-2022 End: 05-19-2022 ambulatory DO Christin Grullon Work Phone: [employer] Other Start: 05-19-2022 End: 05-19-2022 Patient encounter procedure DO Christin Grullon Work Phone: [facility] Start: 04-30-2022 End: 05-01-2022 ambulatory CINDY [...] Start: 02-04-2022 Encounter for preprocedural cardiovascular examination [facility] Start: 02-04-2022 Encounter for preprocedural laboratory examination [facility] Start: 02-03-2022 End: 02-04-2022 ambulatory CINDY RODRIGEZ Facility:[facility] Start: 02-03-2022 End: 02-04-2022 Encounter for preprocedural cardiovascular examination CINDY RODRIGEZ Facility:[facility] Start: 01-08-2022 End: 01-09-2022 ambulatory CORWIN HANLEY Facility:[facility] Start: 12-27-2021 End: 12-28-2021 ambulatory CORWIN LYEN Facility:[facility] Start: 12-04-2021 End: 12-05-2021 ambulatory CINDY RODRIGEZ Facility:[facility] Start: 11-08-2021 End: 11-08-2021 ambulatory Christin Grullon Other [employer] Other Start: 11-08-2021 Telephone encounter Christin Reyes [facility] [place] Start: 05-01-2021 End: 05-01-2021 ambulatory Christin Grullon Other [employer] Other Start: 05-01-2021 Office outpatient vi sit 15 minutes Christin Grullon [facility] [place] Start: 04-18-2021 Telephone encounter Christin Grullon [facility] [place] Start: 03-20-2021 Office outpatient vi sit 15 minutes Christin Grullon [facility] [place] Start: 08-28-2018 End: 09-20-2018 Patient encounter procedure [facility]STINE [facility] Start: 08-21-2018 End: 08-27-2018 Evaluation and management of inpatient [facility] Procedures Date Procedure Procedure Detail Performing [...] Date Care Activity Detail Author Start: 06-10-2023 [facility] Start: 06-10-2023 [facility] Start: 05-05-2023 [facility] Adenosine monophosphate.cyclic [Moles/volume] in Serum or Plasma [facility] Work Phone: Patient Education Felter Diagnostic Block [facility] Work Phone: Patient referral [facility] Work Phone: Rheumatoid factor [Units/volume] in Serum or Plasma [facility] Work Phone: Immunizations Immunization Date Immunization Notes Care Provider Delio sevilla 06-26-2023 influenza, injectabl e, quadrivalent, preservative free Isiah Purcell Other [facility] 05-22-2021 COVID-19 mRNA, Comirnaty (Pfizer) DO Christin Rgullon Work Phone: [facility] 03-20-2021 Kenalog -40 mg Christin Grullon Other [employer] Other 10-18-2020 COVID-19 Vaccine Pfi zer - Documentation Purposes Only Christin Grullon Other [facility] 09-27-2020 COVID-19 Vaccine Pfi zer - Documentation Purposes Only Christin Grullon Other [facility] 08-24-2018 pneumococcal polysaccharide vaccine, 23 valent Christin Grullon Other [facility] Payers Date Payer Category Payer Unknown 2022 Self-pay [id number] 1970 Unknown [id number] 2.16.84 0.1.105295.3.579.2.593 1970 Unknown [id number] 2.16.84 0.1.763518.3.579.2.593 1969 Unknown [id number] 2.16.84 0.1.730575.3.579.2.593 1969 Unknown [id number] 2.16.84 0.1.316850.3.579.2.593 1969 Unknown [id number] 2.16.84 0.1.843256.3.579.2.593 1969 Unknown [id number] 2.16.84 0.1.046427.3.579.2.593 1969 Unknown [id number] 2.16.84 0.1.785357.3.579.2.593 1969 Unknown [id number] 2.16.84 0.1.499242.3.579.2.593 1969 Unknown [id number] 2.16.84 0.1.871402.3.579.2.593 1969 Unknown [id number] 2.16.84 0.1.871118.3.579.2.593 1969 Unknown [id number] 2.16.84 0.1.444860.3.579.2.593 1969 Unknown [id number] 2.16.84 0.1.919579.3.579.2.593 1969 Unknown [id number] 2.16.84 0.1.484317.3.579.2.593 1969 Unknown [id number] 2.16.84 0.1.934126.3.579.2.593 1969 Unknown [id number] 2.16.84 0.1.223903.3.579.2.593 1969 Unknown [id number] 2.16.84 0.1.168555.3.579.2.593 1969 Unknown [id number] 2.16.84 0.1.717937.3.579.2.593 1969 Unknown [id number] 2.16.84 0.1.425729.3.579.2.593 1969 Unknown [id number] .16.84 0.1.069384.3.579.2.593 1969 Unknown [id number] .16. 840.1.787829.3.579.2.196 1959 Unknown [id number] . 840.1.871420.19 Unknown [id number] Unknown [place] / [id number] Unknown [id number] Unknown [id number] 40.1.163534.3.579.2.531 Unknown [id number] 40.1.647146.3.579.2.531 Unknown [id number] 08.07. 40.1.840477.3.579.2.531 Unknown [id number] 08.07. 40.1.709062.3.579.2.531 Unknown [id number] 08.07.8 40.1.767132.3.579.2.531 Unknown [id number] 40.1.627071.3.579.2.531 Unknown [id number] 08.07. 40.1.916448.3.579.2.531 Unknown [id number] 2.16.8 40.1.291074.3.579.2.531 Unknown [id number] 2.16.8 40.1.753690.3.579.2.531 Unknown [id number] 2.16.8 40.1.587283.3.579.2.531 Unknown [id number] 2.16.8 40.1.858791.3.579.2.531 Social History Date Type Detail Facility Tobacco smoking status [facility] Unknown if ever smoked [facility] Start: 1970 Sex Assigned At Female F [facility] Sex Assigned At Sex Assigned At Bir th [employer] Other Start: 2021 End: 08-17-2023 Tobacco smoking status TXIS Ex-smoker (finding) [facility] Start: 06-01-2023 End: 11-06-2023 Tobacco smoking status TXIS Smoker (finding) [facility] Start: 11-06-2023 Tobacco smoking status [facility] Current Light tobacco smoker [facility] Medical Equipment Procedure Code Equipment Code Equipment Origin al Text Equipment Identifier Dates Tendon/ligament bone anchor, bioabsorbable [id number] [facility] Start: 06-10-2023 Goals Date Patient Goal [...] capsulitis of left shoulder (ICD-10 - M75.02) [employer] Other 01-03-2024 Evaluation note* Encounter Date Diagnosis Assessment Notes Treatment Notes Treatment Clinical Notes Jun, Other specified postprocedural states (ICD-10 - Z98.890) [employer] Other 01-02-2024 Evaluation note* Encounter Date Diagnosis [...] capsulitis of left shoulder (ICD-10 - M75.02) [employer] Other 12-28-2023 Evaluation note* Encounter Date Diagnosis Assessment Notes Treatment Notes Treatment Clinical Notes May, Other specified postprocedural states (ICD-10 - Z98.890) [employer] Other 12-19-2023 Evaluation note* Encounter Date Diagnosis Assessment Notes Treatment Notes Treatment Clinical Notes May, Other specified postprocedural states (ICD-10 - Z98.890) [employer] Other 12-05-2023 Evaluation note* Encounter Date Diagnosis [...] note writ ten by Peter Mayo MA, [employer]. Edited and approved by Dr. Christin Mead MD. [employer] Other 12-04-2023 Evaluation note* Encounter Date Diagnosis [...] of left upper extremity (ICD-10 - M75.22) [employer] Other 11-08-2023 Evaluation note* Encounter Date Diagnosis [...] of left acromioclavicular joint (ICD-10 - M19.012) [employer] Other 10-13-2023 Evaluation note* Encounter Date Diagnosis Assessment Notes Treatment Notes Treatment Clinical Notes Mar, Subacromial impingement of left shoulder (ICD-10 - M75.42) [employer] Other 09-26-2023 Evaluation note* Encounter Date Diagnosis [...] note writ ten by Peter Mayo MA, [employer]. Edited and approved by Dr. Christin Mead [...] negative findings were considered in medical decision-making. [employer] Other 09-05-2023 Evaluation note* Encounter Date Diagnosis [...] M19.012) Feb, Neck pain (ICD-10 - M54.2) [employer] Other 06-16-2023 Evaluation note* Encounter Date Diagnosis [...] quit she does not yet have a 57-orih-kgbq history and therefore does not qualify for [...] exercises that she can do at home. [employer] Other 04-07-2023 Evaluation note* Encounter Date Diagnosis [...] as documented in the electronic medical record. [employer] Other 01-30-2023 NotePROCEDURE: XR FOOT LT MIN [...] Electronically authenticated by: HUNG ARREDONDO Date: 2022-07-21 12:57[facility]01-25-2023 Evaluation note* Encounter Date Diagnosis Assessment [...] dental work planned in the near future [employer] Other 01-17-2023 NoteReal-time ultrasound evaluation of the retroareolar and inferior central breast was performed. [employer] [place] Other 01-09-2023 Evaluation note* Encounter Date Diagnosis Assessment Notes Treatment Notes Treatment Clinical Notes Jun, Abnormal mammogram of right breast (ICD-10 - R92.8) [employer] Other 01-05-2023 NotePROCEDURE: XR FOOT LT MIN [...] Electronically authenticated by: STERLING THOMAS Date: 2022-06-26 07:43[facility]12-07-2022 NotePROCEDURE: XR FOOT LT MIN 3 [...] Electronically authenticated by: HUNG ARREDONDO Date: 2022-05-28 13:49[facility]11-28-2022 Evaluation note* Encounter Date Diagnosis Assessment [...] malignant neoplasm of breast (ICD-10 - Z12.31) [employer] Other 11-09-2022 NotePROCEDURE: XR FOOT LT MIN [...] Electronically authenticated by: STERLING THOMAS Date: 2022-04-30 15:18[facility]10-20-2022 NotePROCEDURE: XR ANKLE LT MIN 3 [...] Electronically authenticated by: HUNG ARREDONDO Date: 2022-04-10 06:24[facility]10-20-2022 NotePROCEDURE: XR ANKLE LT MIN 3 [...] authenticated by: HUNG ARREDONDO Date: 2022-04-10 06:24[id number] NotePROCEDURE: XR FOOT LT MIN 3 VIEWS [...] authenticated by: STERLING THOMAS Date: 2022-03-27 17:38[id number] NotePROCEDURE: XR FOOT LT MIN 3 VIEWS [...] Electronically authenticated by: STERLING THOMAS Date: 2022-03-06 11:13[facility]09-01-2022 NotePROCEDURE: XR FOOT LT MIN 3 [...] Electronically authenticated by: HUNG ARREDONDO Date: 2022-02-20 10:51[facility]08-26-2022 NotePROCEDURE: XR FOOT LT 2V HISTORY: Pain COMPARISON: XR foot left 12/04/2021 FINDINGS: BONES:Multiple intraoperative spot fluoroscopic images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
[2024-02-15 07:10] VITALS: BP 121/77; PULSE 58; TEMP 36.1; O2SAT 100
[2024-02-15] MEDS: 0.9 % SODIUM CHLORIDE 500 ML 50 ML IV (07:20)
[2024-02-15] MEDS: BUPIVACAINE HCL 0.25% PF 25 MG/10 ML VIAL 5 ML INJ (07:56)
[2024-02-15] MEDS: TRIAMCINOLONE ACETONIDE 40 MG/ML VIAL INJ (07:56)
[2024-02-15] MEDS: 0.9 % SODIUM CHLORIDE 10 ML 5 ML INJ (07:56)
[2024-02-15] MEDS: IOHEXOL 240 MG/ML - 10 ML VIAL INJ (07:57)
[2024-02-15] MEDS: LIDOCAINE HCL 2% PF 100 MG/5 ML VIAL INJ (07:57)
--- NOTE | 2024-02-15 08:00 | W.PM.PROCNOT ---
Date of procedure: 02/15/24 Pre-op diagnosis: Complex regional pain syndrome type I, left lower extremity Post-op diagnosis: same as pre-op Procedure: Procedure: Left lumbar sympathetic nerve block Medications: Bupivacaine 0.25% 4cc, normal saline 0.9% 4cc, kenalog 80mg The patient was seen and examined in the preoperative holding area.? Informed consent was obtained and placed on the chart.? Patient was brought to the medical procedure unit and placed in the prone position where a timeout was completed verifying the correct patient, procedure site, position, and planned special equipment using sterile aseptic technique.? Under direct fluoroscopic visualization a 25-gauge Quincke tipped spinal needle was advanced to the left anterolateral aspect of the L3 vertebral body where Omnipaque dye was injected to show adequate spread.? There was no evidence of vascular or neurologic uptake.? The above-mentioned injectate was then placed in five 2 mL aliquots preceded by negative aspiration. The needle was removed and the surgery site was covered. The same procedure, with the same steps, was then completed on the opposite side. Patient was taken to the postprocedural recovery area and monitored for an appropriate length of time before found suitable for discharge in the accompaniment of a responsible adult. Anesthesia: MAC Surgeon: Damien Pastrana Pathology: none sent Condition: stable Disposition: no change
[2024-02-15 08:02] VITALS: BP 119/79; PULSE 58; TEMP 36.6; O2SAT 100
[2024-02-15 08:07] VITALS: BP 125/66; PULSE 56; TEMP 36.6; O2SAT 99
== END 2024-02-15 08:28 | disposition home or self-care (01) ==
LOC: SURGOUT 06:05
PROVIDERS: PCP Family Medicine; Visit Provider Anesthesiology
PROC: (CPT 1992; principal; 2024-02-15 07:50)
DX: G90.522 Complex regional pain syndrome I of left lower limb (principal)
CPT/HCPCS: 64520; J0665; J2704; J3301; Q9966

== ENCOUNTER 2024-03-02 10:05 | Outpatient (OUT) | payer OTHER, SELFPAY ==
--- NOTE | 2024-03-02 10:26 | P.CN_ITS ---
Consult Note: HPI Data of Consult Patient: known to practice within the last 3 years Consult date: 12/14/23 Requesting Physician: Kristen Calhoun NP Primary Care Provider: CHRISTIN GRULLON Consult Narrative Reason for consult: left foot pain Narrative: 53yof who presents for evaluation. longstanding left foot pain, has had multiple surgeries on left foot. states that project controls specialist does not believe any further surgeries will help at this point. endorses swelling, color change, temperature change, allodynia in left foot. has tried various conservative measures, including a series of provider directed home exercises for >6 weeks, without benefit. has tried tramadol, lyrica, gabapentin. Patient reporting moderate to significant relief from lyrica 150mg TID with percocet 5-325mg BID PRN and cymbalta 60mg daily. Patient has ran out of lyrica and would like to restart. Patient has not f/u with Dr Tyler or PCP regarding tx for osteoporosis, reports upcoming PCP appointment. Patient recently underwent left lumbar sympathetic nerve block x2 without improvement. patient would like to transfer care here from Dr Mead, previously found benefit to cervical RFAs. cc:: CC: Kristen Calhoun NP Review of Systems ROS Status of ROS 10 or more systems reviewed and unremark able except as noted in history and below Musculoskeletal Reports: neck pain, extremity pain and joint pain PFSH [facility] Medical History (Updated 03/02/24 @ 10:31 by Kristen Calhoun NP) Dyspnea on exertion ?R06.09 - Other forms of dyspnea (ICD-10) Respiratory arrest (2007) ?R09.2 - Respiratory arrest (ICD-10) Pneumonia (2007) ?J18.9 - Pneumonia, unspecified organism (ICD-10) Osteopenia ?M85.80 - Other specified disorders of bone density and structure, unspecified site (ICD-10) Fibromyalgia ?M79.7 - Fibromyalgia (ICD-10) Neck pain ?M54.2 - Cervicalgia (ICD-10) Arthritis ?M19.90 - Unspecified osteoarthritis, unspecified site (ICD-10) Depression ?F32.A - Depression, unspecified (ICD-10) Chronic obstructive pulmonary disease ?J44.9 - Chronic obstructive pulmonary disease, unspecified (ICD-10) Pseudarthrosis after fusion or arthrodesis ?M96.0 - Pseudarthrosis after fusion or arthrodesis (ICD-10) Surgical History History of hysterectomy ?Z90.710 - Acquired absence of both cervix and uterus (ICD-10) H/O foot surgery ?Z98.890 - Other specified postprocedural states (ICD-10) H/O foot surgery ?Z98.890 - Other specified postprocedural states (ICD-10) Family History Other Family history of diabetes mellitus Social History Within the past year, how often did you have a drink containing alcohol: never Score interpretation: A score less than 3 is consistent with normal alcohol consumption. Smoking status: Current every day smoker What tobacco products do you use: cigarettes Packs per day: 1 Years smoked: 24 Smoking pack-years: 24.00 Non-prescribed substance use: denies use Highest level of school completed/degree received: high school graduate Meds Home Medications and Allergies Home Medications ?Medication ?Instructions ?Recorded ?Confirmed ?Type cholecalciferol (vitamin D3) 25 3,000 unit PO DAILY 11/30/22 02/15/24 History mcg (1,000 unit) capsule escitalopram oxalate 20 mg tablet 20 mg PO DAILY 11/30/22 02/15/24 History hydroxyzine pamoate 25 mg capsule 25 mg PO Q8H PRN anxiety 11/30/22 03/07/23 History trazodone 50 mg tablet 50 mg PO .hs 11/30/22 02/15/24 History bupropion HCl 150 mg 24 hr tablet, mg PO 03/07/23 History extended release pregabalin 150 mg capsule (Lyrica) 150 mg PO TID #90 caps 12/14/23 02/15/24 Rx duloxetine 60 mg capsule,delayed 60 mg PO DAILY #30 caps 01/06/24 02/15/24 Rx release (Cymbalta) oxycodone-acetaminophen 5 mg-325 See Rx Instructions .Route 01/06/24 02/15/24 Rx mg tablet (Percocet) .COMPLEX PRN pain #14 tabs Allergies Allergy/AdvReac Type Severity Reaction Status Date / Time Penicillins Allergy Severe Unknown Verified 02/15/24 07:18 PENICILLINS Allergy Unknown vomiting Uncoded 02/01/24 07:21 Exam Narrative Exam Narrative: Psych-alert and oriented x 3.? Attentive and appropriate, constitutionally normal, displays normal mood and affect per situation.? There are no obvious deficits in memory, reasoning, or intellect. Examination of the left lower extremity reveals notable hyperpathia and allodynia.? Notable atrophy and diffuse weakness present in the extremity.? There is notable shiny skin with hair loss and abnormal hair growth denoting trophic changes presently.? Asymmetric color and temperature changes are present which denotes sudomotor changes.? Decreased range of motion and strength is noted in the extremity.? Coordination remains intact.? Gait remains non-antalgic. Neck & C-Spine Cervical spine: cervical ROM normal and pain with cervical ROM Results Additional Findings Additional findings: If on a controlled substance or opioids, I have checked an [place]AR[place] report on this patient and there are no aberrancies noted in the prescribing history.??If on a controlled substance or opioid a drug screen was completed and reviewed within the last year, and if there has not been a drug screen completed we ordered one today to monitor higher risk, state monitored pain medication use. As part of providing excellent, safe, comprehensive care, the following was completed at our patient's visit: 1. A medication reconciliation and review to ensure accurate knowledge of current/active medications, including asking our patients to inform us about any eoeo-vio-wzsgxqq medications or herbal remedies/nutritional supplements/alternative remedies. 2. A review to specifically ensure our patients have had annual screening for screening for depression, screening for tobacco use, and screening for unhealthy alcohol use. For concerning screenings had a discussion with the patient, provided patient education, and recommended follow-up with primary care provider when appropriate. If patient noted with a risk of falling, they received education on strength, gait, and balance training to prevent future risk of falling. Assessment and Plan Assessment and Plan (1) Complex regional pain syndrome i of left lower limb: (2) Fibromyalgia: (3) Chronic prescription opiate use: Assessment and Plan: I feel these medications are improving the patient's quality of life and allow them to tolerate activities of daily living as well as participate in recreational activity.? The patient does not report intolerable side effects. The patient is NOT opioid naive and non-pharmacologic and non-opioid treatment has failed to significantly relieve the patient's pain and improve functionality. The patient has a diagnosis that is related to a somatic or visceral pain etiology. ? ?? I reviewed with the patient the potential risks and side effects with the use of? opioid medications including but not limited to respiratory depression,? sedation, and even . I verified the patient has access to naloxone should? these effects occur. I advised the patient to avoid the use of any other? sedation substances including alcohol, THC, and benzodiazepines while? taking opioid medications due to the risk of compounding side effects and? detrimental outcomes. I reviewed the [employer] MACHINE OPERATOR, pain treatment agreement, urine? drug screen, and opioid start talking forms. The patient was advised to let? their family know they had Naloxone in case they would need to administer? the medication.? ?? A drug screen was completed within the last year, and no aberrancies were noted regarding their use of controlled substances. The patient understands they are subject to the terms and conditions of the pain contract that they have signed. ? ?? I have checked an OARRS report on this patient today and there are no aberrancies noted in the prescribing history.? significant functional improvement JOAQUÍN previously 60% now 26%, improved ability to complete housework and walk (4) Cervical spondylosis: Plan pt to f/u with PCP regarding osteoporosis, consider cane and PT for balance and strengthening in the future restart pregabalin 150mg TID continue duloxetine 60mg daily continue percocet 5-325mg BID PRN moderate to severe pain request records from Dr Palomino office defer left distal sciatic nerve block x2 under fluoroscopy at the time per pt request, can call to reschedule f/u after injections or in 2 months for medication management
== END 2024-03-02 10:06 | disposition home or self-care (01) ==
PROVIDERS: PCP Family Medicine; Visit Provider Nurse Practitioner
DX: G90.522 Complex regional pain syndrome I of left lower limb (principal); M79.7 Fibromyalgia; Z79.891 Long term (current) use of opiate analgesic; M47.812 Spondylosis without myelopathy or radiculopathy, cervical region
CPT/HCPCS: G0463

== ENCOUNTER 2024-05-02 07:44 | Day surgery (SDC) | payer OTHER, SELFPAY ==
--- OUTSIDE RECORDS SUMMARY | 2024-05-02 07:55 | XMS_ITS | CCD ---
Author Organization [facility] Care Team Providers Care Senior Medical Transcriptionist Name Role Phone CHRISTINE TOBIAS Admitting Unavailable CHRISTINE TOBIAS Attending Unavailable NALINI NI Admitting Unavailable LIAN APARICIO Consulting Unavailable BILL PATTEN Attending Unavailable Christin Grullon Unavailable Anoop, Christin Unavailable Anoop, Christin Unavailable DO Christin Grullon Primary Care Provider DO Christin Grullon Attending Provider DO Jose Vincent Attending Provider CINDY RODRIGEZ Admitting Unavailable CINDY RODRIGEZ Attending Unavailable CHRISTIN GRULLON [facility] Unavailable [place], DR STERLING Reid Consulting Unavailable CINDY RODRIGEZ Consulting Unavailable CINDY RODRIGEZ Admitting Unavailable CINDY RODRIGEZ Attending Unavailable CHRISTIN GRULLON [facility] Care Unavailable CINDY RODRIGEZ Consulting Unavailable JONATAN STINSON Consulting Unavailable CINDY RODRIGEZ Admitting Unavailable CINDY RODRIGEZ Attending Unavailable CHRISTIN GRULLON [facility] Unavailable [place], DR STERLING Reid Consulting Unavailable CINDY RODRIGEZ Consulting Unavailable CINDY RODRIGEZ Admitting Unavailable CINDY RODRIGEZ Attending Unavailable CHRISTIN GRULLON [facility] Care Unavailable CINDY RODRIGEZ Consulting Unavailable JONATAN STINSON Consulting Unavailable CINDY RODRIGEZ Admitting Unavailable CINDY RODRIGEZ Attending Unavailable CHRISTIN GRULLON [facility] Care Unavailable CINDY RODRIGEZ Consulting Unavailable CHRISTIN GRULLON [facility] Unavailable ALONSO ., GRETCHEN Admitting Unavailable GRETCHEN WEINER Attending Unavailable ROSALIA MATTHEW Consulting Unavailabl e CINDY RODRIGEZ Admitting Unavailable CINDY RODRIGEZ [facility] DR STERLING Reid Consulting Unavailable DAYAN, CORWIN Admitting Unavailable DAYAN, CORWIN Attending Unavailable DAYAN, CORWIN Consulting Unavailable DAYAN, CORWIN Admitting Unavailable DAYAN, CORWIN Attending Unavailable [facility] Unavailable ZIEBER, DR HUNG Story Consulting Unavailable DAYAN, CORWIN Consulting Unavailable HIGHLANDER, CINDY Stone Admitting Unavailable HIGHLANDER, CINDY Stone Attending Unavailable [facility] ZIEBER, DR HUNG Story Consulting Unavailable HIGHLANDERCINDY Consulting Unavailable HIGHLANDER, CINDY Stone Admitting Unavailable HIGHLANDER, CINDY Stone Attending Unavailable [facility] WE[facility], DR STERLING Reid Consulting Unavailable HIGHLANDERCINDY Consulting Unavailable DAYAN, CORWIN Admitting Unavailable DAYAN, CORWIN Attending Un[facility] DAYAN, CORWIN Consulting Unavailable DAYAN, CORWIN Admitting Unavailable DAYAN, CORWIN Attending Unavailable [facility] ZIEBER, DR HUNG Story Consulting Unavailable DAYAN, CORWIN Consulting Unavailable HIGHLANDER, CINDY Stone Admitting Unavailable HIGHLANDER, CINDY Stone Attending Unavailable [facility] ZIEBER, DR HUNG Story Consulting Unavailable HIGHLANDERCINDY Consulting Unavailable HIGHLANDER, CINDY Stone Admitting Unavailable HIGHLANDER, CINDY Stone Attending Unavailable [facility] ZIEBER, DR HUNG Story Consulting Unavailable HIGHLANDERCINDY Consulting Unavailable Roxanna Nielsen Consulting Unavailable JAVIER ., ANTONIO SEPULVEDA Consulting Unavailable MONALISA CHERY Consulting Unavailable CYRIL PAYNE Consulting Unavailable ELIA, CINDY Stone Admitting Unavailable HIGHLANDER, CINDY Stone Attending Un[facility] ZIEBER, DR HUNG Story Consulting Unavailable HIGHLANDERCINDY Consulting Unavailable DAYAN, CORWIN Admitting Unavailable DAYAN, CORWIN Attending Unavailable [facility] WE[facility], DR STERLING Reid Consulting Unavailable DAYAN, CORWIN Consulting Unavailable TEDANDER, CINDY Stone Admitting Unavailable HIGHLANDER, CINDY Stone Attending Unavailable [facility] Unavailable ZIEBER, DR HUNG Story Consulting [...] DO Bowers R Primary Care Provider MILAN Barron-[employer]-Magdy Plummer Attending Provider Clovis Andersen Unavailable Christin Mead Unavailable DO Pratik Cross Attending Provider Anoop, DO Bowers R Primary Care Provider MILAN Barron-[facility]-Magdy Plummer Attending Provider DO Pratik Cross Attending [...] Care Provider DO Isiah Purcell Attending Provider [phone] Gitabitha BA, Damien Arenas Attending Unavailable Victoriano BA, Damien Arenas Attending Unavailable Unavailable Unavailable Unavailable Allergies Allergy Classification Reported Allergen(s) Allergy Type Date of Onset Reaction(s) Facility (11 sources) Penicillins; Translations: [Penicillins] Allergy to substance 2021 [facility] (1 source) Penicillin Drug Allergy 06-22-2020 [facility] Repository Medications Current Medications Medication Drug [...] every 6 hrs for 5 days OSVALDO: [id number] Jun, Active Start: 04-29-2023 take 1 tablet [...] 10:44am Start: 07-16-[address] [facility] every twelve hours Pregabalin 100 MG 1 [...] 11-04-2023 Chronic Other aftercare (1 source) Other senior living (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; Translations: [OTH TURKISH RUBBER CURRENT DRUG THERAPY] Onset: 07-22-2022 Episodic Other bone disease and musculoskeletal deformities (1 source) Other specified disorders of bone density and structure, multiple sites Episodic Other connective tissue disease (20 sources) Fibromyalgia; Translations: [Fibromyalgia] 03-25-2024 Episodic Other connective tissue disease (2 sources) [...] involving the circulatory and respiratory systems; Translations: [OT SPEC SX SIGNS INVLV CIRC RS] Onset: [...] min 2V*on XR shoulder LT min 2V* [facility] [address] [place] [address] XRay Report Signed Patient: Karen Solis MR#: [id number] 01 : 1970 Acct:[id number] Age/Sex: 53 / F ADM Date: 06/23/23 Loc: SOXD Room: Type: [facility] Attending Dr: Isiah Purcell DO Copies to: [...] Umesh Perez M.D.06/23/2023 3:46 PM Dictation Location: [place] [address] Transcribed By: [facility] 06/23/23 1546 Dictated By: Umesh Perez DO 06/23/23 1545 Signed By: 06/23/23 1546 Normal [facility] XR shoulder LT min 2V* [facility] [email or web address] Other XR shoulder LT min 2V* [facility] [email or web address] Other XR shoulder LT min 2V* [address] [facility] [email or web address] Other XR shoulder LT min 2V* [place] [address] [facility] [email or web address] Other XR shoulder LT min 2V* XRay Report N [facility] [email or web address] Other XR shoulder LT min 2V* [facility] [email or web address] Other XR shoulder LT min 2V* Patient: Karen Solis MR#: [id number] [employer] Other XR shoulder LT min 2V* 01 No rt [employer] Other XR shoulder LT min 2V* : 1970 Acct:[id number] [facility] Other XR shoulder LT min 2V* Age/Sex: 53 / F A DM Date: 06/23/23 [facility] Other XR shoulder LT min 2V* Loc: SOXD Room: Type: [facility] Other XR shoulder LT min 2V* Attending Dr: Juan Purcell DO [facility] Other XR shoulder LT min 2V* Copies to: Isiah Purcell DO [facility] Other XR shoulder LT min 2V* Ordering Provider : Isiah Purcell DO [facility] Other XR shoulder LT min 2V* Date of Service: 06/23/23 [facility] Other XR shoulder LT min 2V* XR/XR shoulder LT min 2V*: Status post arthroscopy of left shoulder [facility] Other XR shoulder LT min 2V* 3 views LEFT shoulder plain film [facility] Other XR shoulder LT min 2V* HISTORY: Status post LEFT shoulder surgery [facility] Other XR shoulder LT min 2V* COMPARISON: None [facility] Other XR shoulder LT min 2V* ACUTE FINDINGS: None [facility] Other XR shoulder LT min 2V* DEGENERATIVE CHANGE: Unremarkable [facility] Other XR shoulder LT min 2V* SOFT TISSUE FINDINGS: Unremarkable [facility] Other XR shoulder LT min 2V* JOINT EFFUSION: None [facility] Other XR shoulder LT min 2V* POSTOP CHANGES: Resection changes of the acromion/clavicle present. No complication. [facility] Other XR shoulder LT min 2V* BONY MINERALIZATION: Adequate [facility] Other XR shoulder LT min 2V* 7 XR/XR shoulder LT min 2V* [facility] Other XR shoulder LT min 2V* IMPRESSION: Unremarkable postsurgical change. [facility] Other XR shoulder LT min 2V* Impression dictat ed by: Umesh Perez M.D.06/23/2023 3:46 PM [facility] Other XR shoulder LT min 2V* Dictation Locatio n: RADIO-PC-01 [facility] Other XR shoulder LT min 2V* Transcribed By: Danilo HUNTER 06/23/23 [facility] Other XR shoulder LT min 2V* Dictated By: Umesh Perez DO 06/23/23 [facility] Other XR shoulder LT min 2V* Signed By: No rt [employer] Other XR shoulder LT min 2V* 06/23/23 [facility] Other Alanine aminotransferase [En zymatic activity/volume] in Serum or PlasmaOrdered By: Isiah Purcell on 06-01-2023 ALT [Catalytic activity/Vol] 6 U/L 7-52 [facility] Albumin [Mass/volume] in Ser um or Plasma by Bromocresol green (BCG) dye binding methoOrdered By: Isiah Purcell on 06-01-2023 Albumin BCG dye [Mass/Vol] 4.2 g/dL 3.5-5.7 [facility] Alkaline phosphatase [Enzyma tic activity/volume] in Serum or PlasmaOrdered By: Isiah Purcell on 06-01-2023 ALP [Catalytic activity/Vol] 123 U/L 34-104 [facility] Aspartate aminotransferase [ Enzymatic activity/volume] in Serum or PlasmaOrdered By: Isiah Purcell on 06-01-2023 AST [Catalytic activity/Vol] 10 U/L 13-39 [facility] Basophils Auto (Bld) [#/Vol] Ordered By: Isiah Purcell on 06-01-2023 Basophils (Bld) [#/Vol] 0.1 10*3/uL 0.0-0.2 [facility] Basophils/100 WBC Auto (Bld) Ordered By: Isiah Purcell on 06-01-2023 Basophils/100 WBC (Bld) 1.4 % . F [facility] Bilirubin.total [Mass/volume ] in Serum or PlasmaOrdered By: Isiah Purcell on 06-01-2023 Bilirubin [Mass/Vol] 0.3 mg/dL 0.3-1.0 [facility] CMP with reflex to A1Con Albumin [Mass/Vol] 4.2 g/dL Normal 3.5-5.7 [facility] Comment on above: Performed By: #### C MP wRFX A1C, CBC #### [facility] [address] [place] [address] [place] Albumin/Globulin [Mass ratio] 1.8 {ratio} Normal [facility] Comment on above: Performed By: #### C MP wRFX A1C, CBC #### [facility] [address] [place] [address] [facility] ALP [Catalytic activity/Vol] 123 U/L High 34-104 [facility] Comment on above: Result Comment: PERF ORMED BY: [place] [address] PATHOLOGIST SUBSTANCE ABUSE PREVENTION COORDINATOR CARLOTTA OLSEN M.D. Performed By: #### C MP wRFX A1C, CBC #### [facility] [address] [place] [id number] [place] ALT [Catalytic activity/Vol] 6 U/L Low 7-52 [facility] Comment on above: Performed By: #### C MP wRFX A1C, CBC #### [facility] [address] [place] [id number] [place] Anion gap [Moles/Vol] 10.2 mmol/L Normal 6.0-15.0 [facility] Comment on above: Performed By: #### C MP wRFX A1C, CBC #### [facility] [address] [place] [id number] [facility] AST [Catalytic activity/Vol] 10 U/L Low 13-39 [facility] Comment on above: Performed By: #### C MP wRFX A1C, CBC #### [facility] [address] [place] [address] [place] Bilirubin [Mass/Vol] 0.3 mg/dL Normal 0.3-1.0 [facility] Comment on above: Performed By: #### C MP wRFX A1C, CBC #### [facility] [address] Calcium [Mass/Vol] 9.6 mg/dL Normal 8.6-10.3 [facility] Comment on above: Performed By: #### C MP wRFX A1C, CBC #### [facility] [address] [place] [id number] [place] Chloride [Moles/Vol] 105 mmol/L Normal 98-107 [facility] Comment on above: Performed By: #### C MP wRFX A1C, CBC #### [facility] [address] [place] [id number] [place] CO2 [Moles/Vol] 29.0 mmol/L Normal 21.0-31.0 [facility] Comment on above: Performed By: #### C MP wRFX A1C, CBC #### [facility] [address] [place] [id number] [place] Creatinine [Mass/Vol] 0.84 mg/dL Normal 0.60-1.20 [facility] Comment on above: Performed By: #### C MP wRFX A1C, CBC #### [facility] [address] [place] [id number] [place] GFR/1.73 sq M.predicted MDRD (S/P/Bld) [Vol rate/Area] mL/min/{1.73_m2} Normal [facility] Comment on above: Performed By: #### C MP wRFX A1C, CBC #### [facility] [address] Globulin (S) [Mass/Vol] 2.4 g/dL Normal F [facility] Comment on above: Performed By: #### C MP wRFX A1C, CBC #### [facility] [address] Glucose [Mass/Vol] 77 mg/dL Normal 70-100 [facility] Comment on above: Performed By: #### C MP wRFX A1C, CBC #### [facility] [address] Potassium [Moles/Vol] 4.2 mmol/L Normal 3.5-5.1 [facility] Comment on above: Performed By: #### C MP wRFX A1C, CBC #### [facility] [address] Protein [Mass/Vol] 6.6 g/dL Normal 6.4-8.9 [facility] Comment on above: Performed By: #### C MP wRFX A1C, CBC #### [facility] [address] Sodium [Moles/Vol] 140 mmol/L Normal 136-145 [facility] Comment on above: Performed By: #### C MP wRFX A1C, CBC #### [facility] [address] [place] [address] [place] Urea nitrogen [Mass/Vol] 7 mg/dL Normal 7-25 [facility] Comment on above: Performed By: #### C MP wRFX A1C, CBC #### [facility] [address] [place] [address] [place] Calcium [Mass/volume] in Ser um or PlasmaOrdered By: Isiah Purcell on 06-01-2023 Calcium [Mass/Vol] 9.6 mg/dL 8.6-10.3 [facility] Carbon dioxide, total [Moles /volume] in Serum or PlasmaOrdered By: Isiah Purcell on 06-01-2023 CO2 [Moles/Vol] 29.0 mmol/L 21.0-31.0 [facility] Chloride [Moles/volume] in S migue or PlasmaOrdered By: Isiah Purcell on 06-01-2023 Chloride [Moles/Vol] 105 mmol/L 98-107 [facility] Complete Blood Count Auto Di ffon 06-01-2023 Basophils (Bld) [#/Vol] 0.1 10*3/uL Normal 0.0-0.2 [facility] Comment on above: Result Comment: PERF ORMED BY: [place] [address] PATHOLOGIST SUBSTANCE ABUSE PREVENTION COORDINATOR CARLOTTA OLSEN M.D. Performed By: #### C MP wRFX A1C, CBC #### [facility] [address] Basophils/100 WBC (Bld) 1.4 % Normal . F [facility] Comment on above: Performed By: #### C MP wRFX A1C, CBC #### [facility] [address] [place] [address] [place] Eosinophils (Bld) [#/Vol] 0.1 10*3/uL Normal 0.0-0.45 [facility] Comment on above: Performed By: #### C MP wRFX A1C, CBC #### [facility] [address] [place] [address] [place] Eosinophils/100 WBC (Bld) 1.8 % Normal . [facility] Comment on above: Performed By: #### C MP wRFX A1C, CBC #### [facility] [address] [place] [address] [place] Erythrocyte distribution width (RBC) [Ratio] 13.4 % Normal 11.9-15.3 [facility] Comment on above: Performed By: #### C MP wRFX A1C, CBC #### [facility] [address] Hematocrit (Bld) [Volume fraction] 40.1 % Normal 34.0-46.4 [facility] Comment on above: Performed By: #### C MP wRFX A1C, CBC #### [facility] [address] Hemoglobin (Bld) [Mass/Vol] 13.7 g/dL Normal 11.8-15.4 [facility] Comment on above: Performed By: #### C MP wRFX A1C, CBC #### [address] Lymphocytes (Bld) [#/Vol] 1.5 10*3/uL Normal 1.00-4.8 [facility] Comment on above: Performed By: #### C MP wRFX A1C, CBC #### [address] Lymphocytes/100 WBC (Bld) 20.3 % Normal . [facility] Comment on above: Performed By: #### C MP wRFX A1C, CBC #### [address] MCH (RBC) [Entitic mass] 30.3 pg Normal 24.7-34.3 [facility] Comment on above: Performed By: #### C MP wRFX A1C, CBC #### [address] MCV (RBC) [Entitic vol] 88.8 fL Normal 80-100 F [facility] Comment on above: Performed By: #### C MP wRFX A1C, CBC #### [address] Mean Corpuscular HGB Conc 34.1 g/dL Normal 32.0-35.0 [facility] Comment on above: Performed By: #### C MP wRFX A1C, CBC #### [place] [address] [place] Monocytes (Bld) [#/Vol] 0.6 10*3/uL Normal 0.0-0.8 [facility] Comment on above: Performed By: #### C MP wRFX A1C, CBC #### [place] [address] [place] Monocytes/100 WBC (Bld) 8.7 % Normal . F [facility] Comment on above: Performed By: #### C MP wRFX A1C, CBC #### [facility] [address] Neutrophils (Bld) [#/Vol] 5.0 10*3/uL Normal 1.8-7.7 [facility] Comment on above: Performed By: #### C MP wRFX A1C, CBC #### [facility] [address] Neutrophils/100 WBC (Bld) 67.8 % Normal . [facility] Comment on above: Performed By: #### C MP wRFX A1C, CBC #### [facility] [address] NRBC% 0.0 /100{WBC} Normal 0-0.5 [facility] Comment on above: Performed By: #### C MP wRFX A1C, CBC #### [facility] [address] [place] [address] Platelet mean volume (Bld) [Entitic vol] 8.2 fL Normal 6.3-10.7 [facility] Comment on above: Performed By: #### C MP wRFX A1C, CBC #### [place] [address] [place] Platelets (Bld) [#/Vol] 377 10*3/uL Normal 150-450 [facility] Comment on above: Performed By: #### C MP wRFX A1C, CBC #### [facility] [address] [place] [address] [place] RBC (Bld) [#/Vol] 4.52 10*6/uL Normal 3.60-5.00 [facility] Comment on above: Performed By: #### C MP wRFX A1C, CBC #### [place] [address] [place] WBC (Bld) [#/Vol] 7.3 10*3/uL Normal 3.8-11.6 [facility] Comment on above: Performed By: #### C MP wRFX A1C, CBC #### [facility] [address] [place] [id number] [facility] Creatinine [Mass/volume] in Serum or PlasmaOrdered By: Isiah Purcell on 06-01-2023 Creatinine [Mass/Vol] 0.84 mg/dL 0.60-1.20 [facility] ECG 12 lead ECGon 06-01-2023 ECG 12 lead ECG [facility] [address] [place] [address] [place] [address] Electrocardiograph Report Signed Patient: Karen Solis MR#: [id number] 01 : 1970 Acct:[id number] Age/Sex: 53 / F ADM Date: 06/01/23 Loc: Room: Type: [facility] Attending Dr: Isiah Purcell DO Ordering Provider: [...] Signed By Christin Brown MD 2138 Normal [facility] Eosinophils Auto (Bld) [#/Vo l]Ordered By: Isiah Purcell on 06-01-2023 Eosinophils (Bld) [#/Vol] 0.1 10*3/uL 0.0-0.45 [facility] Eosinophils/100 WBC Auto (Bl d)Ordered By: Isiah Purcell on 06-01-2023 Eosinophils/100 WBC (Bld) 1.8 % . [facility] Erythrocyte distribution wid th Auto (RBC) [Ratio]Ordered By: Isiah Purcell on 06-01-2023 Erythrocyte distribution width (RBC) [Ratio] 13.4 % 11.9-15.3 [facility] Globulin Calc (S) [Mass/Vol] Ordered By: Isiah Purcell on 06-01-2023 Globulin (S) [Mass/Vol] 2.4 g/dL [facility] Glucose [Mass/volume] in Ser um or PlasmaOrdered By: Isiah Purcell on 06-01-2023 Glucose [Mass/Vol] 77 mg/dL 70-100 [facility] Hematocrit Auto (Bld) [Volum e fraction]Ordered By: Isiah Purcell on 06-01-2023 Hematocrit (Bld) [Volume fraction] 40.1 % 34.0-46.4 [facility] Hemoglobin [Mass/volume] in BloodOrdered By: Isiah Purcell on 06-01-2023 Hemoglobin (Bld) [Mass/Vol] 13.7 g/dL 11.8-15.4 [facility] Leukocytes [#/volume] correc lizbet for nucleated erythrocytes in Blood by Automated counOrdered By: Isiah Purcell on 06-01-2023 WBC corrected for nucl RBC Auto (Bld) [#/Vol] 7.3 10*3/uL 3.8-11.6 [facility] Lymphocytes Auto (Bld) [#/Vo l]Ordered By: Isiah Purcell on 06-01-2023 Lymphocytes (Bld) [#/Vol] 1.5 10*3/uL 1.00-4.8 [facility] Lymphocytes/100 WBC Auto (Bl d)Ordered By: Isiah Purcell on 06-01-2023 Lymphocytes/100 WBC (Bld) 20.3 % . [facility] MCH Auto (RBC) [Entitic mass ]Ordered By: Isiah Purcell on 06-01-2023 MCH (RBC) [Entitic mass] 30.3 pg 24.7-34.3 [facility] MCHC Auto (RBC) [Mass/Vol]Or dered By: Isiah Purcell on 06-01-2023 MCHC (RBC) [Mass/Vol] 34.1 g/dL 32.0-35.0 [facility] MCV Auto (RBC) [Entitic vol] Ordered By: Isiah Purcell on 06-01-2023 MCV (RBC) [Entitic vol] 88.8 fL 80-100 [facility] Monocytes Auto (Bld) [#/Vol] Ordered By: Isiah Purcell on 06-01-2023 Monocytes (Bld) [#/Vol] 0.6 10*3/uL 0.0-0.8 [facility] Monocytes/100 WBC Auto (Bld) Ordered By: Isiah Purcell on 06-01-2023 Monocytes/100 WBC (Bld) 8.7 % . [facility] Neutrophils Auto (Bld) [#/Vo l]Ordered By: Isiah Purcell on 06-01-2023 Neutrophils (Bld) [#/Vol] 5.0 10*3/uL 1.8-7.7 [facility] Neutrophils/100 WBC Auto (Bl d)Ordered By: Isiah Purcell on 06-01-2023 Neutrophils/100 WBC (Bld) 67.8 % . [facility] No Panel InformationOrdered By: Isiah Purcell on 06-01-2023 Estimated GFR (CKD-EPI) > 60.0 mL/Min [facility] Creatinine Clearance (Chem N/A [facility] Nucleated erythrocytes [Pres ence] in Blood by Automated countOrdered By: Isiah Purcell on 06-01-2023 Nucleated RBC Auto Ql (Bld) 0.0 /100{WBC} 0-0.5 [facility] Platelet mean volume Auto (B ld) [Entitic vol]Ordered By: Isiah Purcell on 06-01-2023 Platelet mean volume (Bld) [Entitic vol] 8.2 fL 6.3-10.7 [facility] Platelets Auto (Bld) [#/Vol] Ordered By: Isiah Purcell on 06-01-2023 Platelets (Bld) [#/Vol] 377 10*3/uL 150-450 [facility] Potassium [Moles/volume] in Serum or PlasmaOrdered By: Isiah Purcell on 06-01-2023 Potassium [Moles/Vol] 4.2 mmol/L 3.5-5.1 [facility] Protein [Mass/volume] in Ser um or PlasmaOrdered By: Isiah Purcell on 06-01-2023 Protein [Mass/Vol] 6.6 g/dL 6.4-8.9 [facility] RBC Auto (Bld) [#/Vol]Ordere d By: Isiah Purcell on 06-01-2023 RBC (Bld) [#/Vol] 4.52 10*6/uL 3.60-5.00 [facility] Serum or plasma albumin/glob ulin mass ratioOrdered By: Isiah Purcell on 06-01-2023 Albumin/Globulin [Mass ratio] 1.8 {ratio} [facility] Serum or plasma anion gap de terminationOrdered By: Isiah Purcell on 06-01-2023 Anion gap [Moles/Vol] 10.2 mmol/L 6.0-15.0 [facility] Sodium [Moles/volume] in Ser um or PlasmaOrdered By: Isiah Purcell on 06-01-2023 Sodium [Moles/Vol] 140 mmol/L 136-145 [facility] Urea nitrogen [Mass/volume] in Serum or PlasmaOrdered By: Isiah Purcell on 06-01-2023 Urea nitrogen [Mass/Vol] 7 mg/dL 7-25 [facility] WBC Auto (Bld) [#/Vol]Ordere d By: Isiah Purcell on 06-01-2023 WBC (Bld) [#/Vol] 7.3 10*3/uL 3.8-11.6 [facility] MR shoulder LT wo conon 03-22 MR [place] [address] MRI Report Signed Patient: Karen Solis MR#: [id number] 01 : 1970 Acct:[id number] Age/Sex: 52 / F ADM Date: 04/02/23 Loc: [facility] Room: Type: [facility] Attending Dr: Pratik Cross DO Copies to: [...] Rian Royal M.D.04/02/2023 4:38 PM Dictation Location: [place] [address] Transcribed By: [facility] 04/02/23 6051 Dictated By: Rian Royal II, MD 04/02/23 163 Signed By: 04/02/23 163 Normal [facility] XR thoracic spine 3V*on XR thoracic spine 3V* [facility] Main [address] [address] XRay Report Signed Patient: Karen Solis MR#: [id number] 01 : 1970 Acct:[id number] Age/Sex: 52 / F ADM Date: 02/24/23 Loc: ICXD Room: Type: [facility] CLI Attending Dr: Gwendolyn MULLER [...] Perla Mcnally M.D.02/24/2023 4:32 PM Dictation Location: [place] [address] Transcribed By: [facility] 02/24/23 1632 Dictated By: Perla Mcnally MD 02/24/23 1630 Signed By: 02/24/23 1632 Normal [facility] XR pre/post mri xrayon 09-24 XR pre/post mri xray [facility] Main [address] [address] MRI Report Signed Patient: Karen Solis MR#: [id number] 01 : 1970 Acct:[id number] Age/Sex: 52 / F ADM Date: 09/24/22 Loc: [facility] Room: Type: [facility] CLI Attending Dr: Brenda VILLEDA Copies to: RONAL Collazo Ordering Provider: Brenda S Manan, CHARGE ACCOUNT IDENTIFICATION CLERK-C Date of Service: 09/24/22 MR/MR cervical spine wo con: M54.12 ([id number]) XR/XR pre/post mri xray: C-SPINE MRI cervical [...] Umesh Perez M.D.09/24/2022 3:22 PM Dictation Location: RADIO-PC-01 Transcribed By: ANJEL 09/24/22 1522 Dictated By: Umesh Perez DO 09/24/22 1517 Signed By: 09/24/22 1522 [facility] MR head/brain wo conon 07-30 MR head/brain wo con [facility] Main [place] [address] [place], [place] [id number] MRI Report Signed Patient: Karen Solis MR#: [id number] 01 : 1970 Acct:[id number] Age/Sex: 52 / F ADM Date: 07/30/22 Loc: [facility] Room: Type: [facility] Attending Dr: Christin Grullon DO Copies to: [...] Perla Mcnally M.D.07/30/2022 4:55 PM Dictation Location: RADIO-PC-10 Transcribed By: ANJEL 07/30/22 1655 Dictated By: Perla Mcnally MD 07/30/22 1647 Signed By: 07/30/22 1655 Normal [facility] MR head/brain wo con [facility] [place] Other MR head/brain wo con [facility] [place] Other MR head/brain wo con 1111 [facility] [place] Other MR head/brain wo con [place] [address] [place] Other MR head/brain wo con MRI Report [facility] [place] Other MR head/brain wo con Signed [facility] [place] Other MR head/brain wo con Patient: Karen Solis MR#: [id number] [place] Other MR head/brain wo con 01 [facility] [place] Other MR head/brain wo con : 1970 Acct:[id number] [place] Other MR head/brain wo con Age/Sex: 52 / F ADM Date: 07/30/22 [place] Other MR head/brain wo con [facility]: Type: [facility] [place] Other MR head/brain wo con Attending Dr: Christin Grullon DO [place] Other MR head/brain wo con Copies to: Christin Grullon DO [place] Other MR head/brain wo con Ordering Provider: Christin Grullon DO [place] Other MR head/brain wo con Date of Service: 07/30/22 [place] Other MR head/brain wo con MR/MR head/brain wo con: Generalized headaches;Intention tremor;Pain in [place] Other MR head/brain wo con unspecified l [facility] [employer] Other MR head/brain wo con EXAMINATION: MRI OF THE BRAIN WITHOUT CONTRAST [place] Other MR head/brain wo con CLINICAL HISTORY: Headache and intention tremor for the past few months, mostly on the left. [place] Other MR head/brain wo con COMPARISON: CT 2021 [place] Other MR head/brain wo con TECHNIQUE: Multiecho, multiplanar imaging of the brain was performed without enhancement. [place] Other MR head/brain wo con The ventricles are normal in size and position. A small nonspecific focus of increased T2 and FLAIR [place] Other MR head/brain wo con signal is present within the subcortical white matter of the right parietal lobe (axial image 15). [place] Other MR head/brain wo con There is also very subtle increased signal within the suzie. This is nonspecific and could be [place] Other MR head/brain wo con minimal microvascular disease. Demyelination is thought less likely given the distribution. A [place] Other MR head/brain wo con prominent perivascular space is noted at the inferior basal ganglia region on the left. There are [facility] Other MR head/brain wo con no additional areas of abnormal signal intensity within the supra- or infratentorial brain. No [place] Other MR head/brain wo con restricted diffusion is identified to suggest a recent ischemic event. There are no extra-axial [place] Other MR head/brain wo con collections or mass effect. The imaged paranasal sinuses and mastoid air cells are clear. [place] Other MR head/brain wo con MR/MR head/brain wo con [place] Other MR head/brain wo con IMPRESSION: Nor [employer] Other MR head/brain wo con MINIMAL NONSPECIFIC WHITE MATTER CHANGE, DESCRIBED. [place] Other MR head/brain wo con NO ACUTE INTRACRANIAL FINDINGS [place] Other MR head/brain wo con Impression dictated by: Perla Mcnally M.D.07/30/2022 4:55 PM [place] Other MR head/brain wo con Dictation Location: [place] [address] [place] Other MR head/brain wo con Transcribed By: ANJEL 07/30/22 1655 [place] Other MR head/brain wo con Dictated By: Perla Mcnally MD 07/30/22 1647 [place] Other MR head/brain wo con Signed By: Thierno [employer] Other MR head/brain wo con 07/30/22 1655 N [facility] [employer] Other POINT OF CARE GLUCOSEon 06-24 Glucose [Mass/Vol] 94 mg/dL Normal 74-106 [facility] Comment on above: Performed By: #### P OCGLUC #### [facility] [address] [place], [place] [address] Dr. Alex Guy Glucose [Mass/Vol] 92 mg/dL Normal 74-106 [facility] Comment on above: Performed By: #### P OCGLUC ####[facility] [address] [place], [place] [address]TyDr. Alex Guy XR FOOT LT 2Von 07-21-2022 [...] limited frontal views. Electronically authenticated by: ROXANNA KIM Date: 2022-07-21 09:40 Normal [facility] Covid-19 PCR (CVDTB)on 06-23 SARS-CoV-2 (COVID-19) RNA CATALINA+probe Ql (Unsp spec) Not detected Normal NOT DETECTED [facility] Comment on above: Result Comment: This test is not yet approved or cleared by the [place] FDA. When there are no FDA-approved or cleared tests available, and other criteria are met, FDA can make tests available under an emergency access mechanism called an Emergency Use Authorization (EUA). The EUA for this test is supported by the [place] of Health and Human Service's (HHS's) declaration [...] consistent with SARS-CoV-2. Performed By: #### [facility] #### [facility] [address] [place] [address] Dr. Alex Sandhu 07-14-2022 L Specimen: [id number] Received: 07/14/22 Status: GENNY Ellis Num: [id number] Spec Type: Surgical Subm Dr: Rian Royal, IIMD Tissues: A BREAST CORE NO CALCS (RT BREAST TISSUE) Procedures: HE/4, Gross/Micro L4, CALPONIN Age/ Patient Sex Location Account Attending Physician Karen Solis 52/F MAGDYUL [id number] Jose Vincent DO SPEC NUM: [id number] RECD: 07/14/22 STATUS: GENNY ELLIS NUM: [id number] LESTER: 07/14/[address] [facility] [address]: Rian Royal II, MD ENTERED: 07/14/22 [facility] DR: DO JOE Martini TYPE: Surgical [...] calculate Specimen: [id number] Received: 07/14/22 Status: GENNY Ellis Num: [id number] Spec Type: Surgical Subm Dr: Rian Royal II, MD Tissues: A BREAST CORE NO CALCS (RT BREAST TISSUE) Procedures: HE/4, Gross/Micro L4, CALPONIN Patient: Karen Solis [id number] (Continued) Specimen: [id number] Received: 07/14/22 (Continued) Signed (signatur e on file) Tenisha Banks MD 07/15/22 1623 Specimen: [id number] Received: 07/14/22 Status: GENNY Ellis Num: [id number] Spec Type: Surgical Subm Dr: Rian Royal II, MD Tissues: A BREAST CORE NO CALCS (RT BREAST TISSUE) Procedures: HE/4, Gross/Micro L4, CALPONIN Patient: SolisAydin sanedvin Jones [id number] (Continued) Specimen: [id number] Received: 07/14/22 (Continued) Microscopic Description Two glass slides with H E stained material have been examined. The microscopic findings support the above pathologic diagnosis. CPT Codes 84566 Specimen: [id number] Received: 07/14/22 Status: GENNY Ellis Num: [id number] Spec Type: Surgical Subm Dr: Rian Royal II, MD Tissues: A BREAST CORE NO CALCS (RT BREAST TISSUE) Procedures: Claudio LYNN/Chiquis Arango, CALPONIN Patient: Karen Solis [id number] (Continued) Signed (signatur e on file) Tenisha Banks MD 07/15/22 2394 [facility] breast ndl core biopsy RT on 07-14-2022 US breast ndl core biopsy RT [facility] [place] [address] Mammography Report Signed with Addenda Patient: Karen Solis MR#: [id number] 01 : 1970 Acct:[id number] Age/Sex: 52 / F ADM Date: 07/14/22 Loc: [facility] Room: Type: [facility] Attending Dr: Jose Vincent DO Copies to: DO Christin Martini DO Ordering Provider: Jose Vincent DO Date of Service: 07/14/22 US/US breast ndl core biopsy RT: BREAST LESION ([id number]) MM/MM post biopsy RT w/CAD: POST U/S BX WITH CLIP ADDENDUM 1 Final pathology: Benign fibrofatty breast tissue Negative for atypia or malignancy. Recommendation: Follow-up with diagnostic right breast mammogram in 6 months is recommended. Impression dictated by: Rian Royal M.D.07/16/2022 7:40 AM Dictation Location: [facility] Addendum Dictated By: Rian Royal [...] of the right breast was performed by cytopathology technologist as well as myself. At the [...] o'clock position were performed using a 12-gauge Suros vacuum-assisted core biopsy needle under ultrasound guidance. [...] Rian Royal M.D.07/14/2022 11:58 AM Dictation Location: [facility] Transcribed By: [facility] 07/14/22 1158 Dictated By: Rian Royal II, MD 07/14/22 1154 Signed By: 07/14/22 1158 [facility] PROF CHEM 8 (BAS METB)on Anion gap [Moles/Vol] 9.3 mmol/L Normal [facility] Comment on above: Performed By: #### B MP ####[facility] [address] [place] [address]Dr. Alex Guy Calcium [Mass/Vol] 9.5 mg/dL Normal 8.5-10.1 [facility] Comment on above: Performed By: #### B MP ####[facility] [address] [place] [address]Dr. Alex Guy Chloride [Moles/Vol] 104 mmol/L Normal 98-107 [facility] Comment on above: Performed By: #### B MP ####[facility] [address] [place] [address]Dr. Alex Guy CO2 [Moles/Vol] 32.4 mmol/L Critically high 21.0-32.0 [facility] Comment on above: Performed By: #### B MP ####[facility] [address] [place] [address]Dr. Alex Guy Creatinine [Mass/Vol] 0.82 mg/dL Normal 0.55-1.02 [facility] Comment on above: Performed By: #### B MP ####[facility] [address] [place] [address]Dr. Alizelarry Brooks EGFR-AF MACEDONIAN >60 Normal >=60 [facility] Comment on above: Performed By: #### B MP ####[facility] [address] [place] [address]Dr. Alex Guy EGFR-NON AF MACEDONIAN >60 Normal >=60 [facility] Comment on above: Performed By: #### B MP ####[facility] [address] [place] [address]Dr. Alex Guy Glucose [Mass/Vol] 89 mg/dL Normal 74-106 [facility] Comment on above: Performed By: #### B MP ####[facility] [address] [place], [place] [address]Dr. Alex Guy Potassium [Moles/Vol] 4.7 mmol/L Normal 3.5-5.1 [facility] Comment on above: Performed By: #### B MP ####[facility] [address] [place], [place] [address]Dr. Alex Guy Sodium [Moles/Vol] 141 mmol/L Normal 136-145 [facility] Comment on above: Performed By: #### B MP ####[facility] [address] [place], [place] [address]Dr. Alex Guy Urea nitrogen [Mass/Vol] 7.0 mg/dL Normal 7.0-18.0 [facility] Comment on above: Performed By: #### B MP ####[facility] [address] [place], [place] [address]Dr. Alex Guy Urea nitrogen/Creatinine [Mass ratio] 8.5 mg/mg Normal [facility] Comment on above: Performed By: #### B MP ####[facility] [address] [place] [id number]. Alex uGy CT FOOT LT WO CONon 01-17-[address] FOOT LT WO CON EXAMINATION: [...] by: STERLING THOMAS Date: 2022-07-08 07:21 Normal [facility] US breast RT limitedon 07-08 US breast RT limited [facility] Main [place] [address] [place] [address] Mammography Report Signed Patient: Karen Solis MR#: [id number] 01 : 1970 Acct:[id number] Age/Sex: 52 / F ADM Date: 07/08/22 Loc: [place] Room: Type: [facility] Attending Dr: Christin Grullon DO Copies to: Christin Grullon DO Ordering Provider: Christin Grullon DO Date of Service: 07/08/22 MM/MM diagnostic mammo RT w/CAD: Abnormal mammogram of right breast ([id number]) US/US breast RT limited: Abnormal mammogram of [...] Perla Mcnally M.D.07/08/2022 4:04 PM Dictation Location: [facility] Transcribed By: [facility] 07/08/22 1604 Dictated By: Perla Mcnally MD 07/08/22 1442 Signed By: 07/08/22 1604 Normal [facility] US breast RT limited [facility] [email or web address] Other US breast RT limited [facility] [email or web address] Other US breast RT limited [address] [place] [address] [employer] Other US [place] [address] [place] Other US breast RT limited Mammography Report [place] Other US breast RT limited Signed [place] [employer] Other US breast RT limited Patient: Karen Solis MR#: [id number] [place] Other US breast RT limited [employer] Other US breast RT limited : 1970 Acct:[id number] [place] Other US breast RT limited Age/Sex: 52 / F ADM Date: 07/08/22 [place] Other US breast RT limited Loc: [place] Room: Type: [facility] [place] Other US breast RT limited Attending Dr: Chrisitn Grullon [place] Other US breast RT limited Copies to: Christin Grullon DO [place] Other US breast RT limited Ordering Provider: Christin Grullon DO [place] Other US breast RT limited Date of Service: 07/08/22 [place] Other US breast RT limited MM/MM diagnostic mammo RT w/CAD: Abnormal mammogram of right breast [place] Other US breast RT limited ([id number]) US/US breast RT limited: Abnormal mammogram of right breast [facility] Other US breast RT limited CLINICAL DATA: Follow-up right breast asymmetry. [place] Other US breast RT limited RIGHT DIAGNOSTIC MAMMOGRAMS - FULL FIELD DIGITAL WITH TOMOSYNTHESIS AND CAD [place] Other US breast RT limited Tomosynthesis spot compression true lateral, craniocaudal and mediolateral oblique views of the [place] Other US breast RT limited right breast were obtained using low-dose digital technique. Comparison is made to the prior study [place] Other US breast RT limited from June 19, 2022. This examination was reviewed with the aid of CAD. [place] Other US breast RT limited There are scattered fibroglandular densities. There is still subtle, ill-defined asymmetry at the [place] Other US breast RT limited central, slightly inferior breast on today's views. There are no other suspicious masses, typically [place] Other US breast RT limited malignant calcifications or architectural distortion. [place] Other US breast RT limited LIMITED RIGHT BREAST ULTRASOUND [place] Other US breast RT limited the 4 to 5:00 position in the retroareolar region, there is a subtle hypoechoic area which has [place] Other US breast RT limited slightly irregular margination. It measures approximately 3 x 3 x 4 mm in size. This might correlate [place] Other US breast RT limited with the mammographic asymmetry. At the 6 to 7:00 position, 4 cm from the nipple there is a possible [place] Other US breast RT limited subtle 3 x 2 x 4 mm hypoechoic nodular area within a band of tissue extending from middle depth [place] Other US breast RT limited toward the chest wall. There are multiple adjacent vessels. If real, this is probably incidental. [place] Other US breast RT limited MM/MM diagnostic mammo RT w/CAD [place] Other US breast RT limited IMPRESSION: Nor [employer] Other US breast RT limited PERSISTENT SUBTLE ASYMMETRY WITH TINY INDETERMINANT HYPODENSITY ON ULTRASOUND. FINDINGS WERE [place] Other US breast RT limited DISCUSSED WITH THE PATIENT WHO WOULD PREFER ULTRASOUND-GUIDED BIOPSY OVER OBSERVATION. [place] Other US breast RT limited SECOND POTENTIAL INCIDENTAL TINY HYPODENSITY AT THE LOWER OUTER QUADRANT. ULTRASOUND FOLLOW-UP IN 6 [place] Other US breast RT limited MONTHS IS SUGGESTED. [place] Other US breast RT limited RESULT CODE: 4a [place] Other US breast RT limited Suspicious Abnormality - Biopsy Low Suspicion [place] Other US breast RT limited DENSITY CODE: 2 (approximately 25-50% glandular) [place] Other US breast RT limited FOLLOW UP: BIO [place] Other US breast RT limited The false-negative rate of mammography is approximately 10-percent. [place] Other US breast RT limited Management of a palpable abnormality must be based on clinical grounds. [place] Other US breast RT limited Patient was entered into a reminder system with a target due date for the next mammogram. [facility] Other US breast RT limited Impression dictated by: Perla Mcnally M.D.07/08/2022 4:04 PM [place] Other US breast RT limited Dictation Location: [facility] [employer] Other US breast RT limited Transcribed By: PWS 07/08/22 1604 [place] Other US breast RT limited Dictated By: Perla Mcnally MD 07/08/22 1442 [place] Other US breast RT limited Signed By: Thierno [place] Other US breast RT limited 07/08/22 1604 N [employer] Other MM screening mammo BI w/CADo n 06-30-2022 MM screening mammo BI w/CAD [facility] [address] Mammography Report Signed Patient: Karen Solis MR#: [id number] 01 : 1970 Acct:[id number] Age/Sex: 52 / F ADM Date: 06/19/22 Loc: [place] Room: Type: [facility] Attending Dr: Christin Grullon DO Copies to: [...] Hannah Jr., D.OGanga06/30/2022 10:03 AM Dictation Location: [facility] Transcribed By: [facility] 06/30/22 1003 Dictated By: Jeff Hannah Jr, DO 06/30/22 1001 Signed By: 06/30/22 1003 Normal [facility] Albumin [Mass/volume] in Ser um or PlasmaOrdered By: Christin Grullon on 05-19-2022 Albumin [Mass/Vol] 4.6 g/dL 3.2-5.5 [facility] C reactive protein [Mass/vol ume] in Serum or PlasmaOrdered By: Christin Grullon on 05-19-2022 CRP [Mass/Vol] 0.5 mg/dL 0.0-1.0 [facility] Creatinine and Glomerular fi ltration rate.predicted panel (S/P/Bld)Ordered By: Christin Grullon on 05-19-2022 Creatinine [Mass/Vol] 0.85 mg/dL 0.44-1.03 [facility] Erythrocyte distribution wid th Auto (RBC) [Ratio]Ordered By: Christin Grullon on 05-19-2022 Erythrocyte distribution width (RBC) [Ratio] 13.6 % 11.9-15.3 [facility] Erythrocyte sedimentation ra te by Photometric methodOrdered By: Christin Grullon on 05-19-2022 ESR Photometric method (Bld) [Velocity] 24 mm/hr 0- [facility] Estimated glomerular filtrat ion rate (GFR) non- AmericanOrdered By: Christin Grullon on 05-19-2022 GFR/1.73 sq M.predicted among non-blacks MDRD (S/P/Bld) [Vol rate/Area] > 60 mL/Min [facility] Globulin Calc (S) [Mass/Vol] Ordered By: Christin Grullon on 05-19-2022 Globulin (S) [Mass/Vol] 2.5 g/dL F [facility] Hematocrit Auto (Bld) [Volum e fraction]Ordered By: Christin Grullon on 05-19-2022 Hematocrit (Bld) [Volume fraction] 42.6 % 34.0-46.4 [facility] Hemoglobin [Mass/volume] in BloodOrdered By: Christin Grullon on 05-19-2022 Hemoglobin (Bld) [Mass/Vol] 14.1 g/dL 11.8-15.4 [facility] MCH Auto (RBC) [Entitic mass ]Ordered By: Christin Grullon on 05-19-2022 MCH (RBC) [Entitic mass] 29.5 pg 24.7-34.3 [facility] MCHC Auto (RBC) [Mass/Vol]Or dered By: Christin Grullon on 05-19-2022 MCHC (RBC) [Mass/Vol] 33.0 g/dL 32.0-35.0 [facility] MCV Auto (RBC) [Entitic vol] Ordered By: Christin Grullon on 05-19-2022 MCV (RBC) [Entitic vol] 89.3 fL 80-100 F [facility] No Panel InformationOrdered By: Christin Grullon on 05-19-2022 Estimated GFR () > 60 mL/Min [facility] Comment on above: GFR estimated refere nce range: According to KDOQI guidelines, <60 ml/min/1.73m2 is sufficient to diagnose a patient with chronic kidney disease. Pharmacy Creatinine Clearance (Chem N/A [facility] Platelet mean volume Auto (B ld) [Entitic vol]Ordered By: Christin Grullon on 05-19-2022 Platelet mean volume (Bld) [Entitic vol] 8.5 fL 6.3-10.7 [facility] Platelets Auto (Bld) [#/Vol] Ordered By: Christin Grullon on 05-19-2022 Platelets (Bld) [#/Vol] 388 10*3/uL 150-450 [facility] Protein [Mass/volume] in Ser um or PlasmaOrdered By: Christin Grullon on 05-19-2022 Protein [Mass/Vol] 7.1 g/dL 6.1-7.9 [facility] RBC Auto (Bld) [#/Vol]Ordere d By: Christin Grullon on 05-19-2022 RBC (Bld) [#/Vol] 4.77 10*6/uL 3.60-5.00 [facility] Serum or plasma alanine martinez otransferase measurement without P-5'-P (enzymatic activiOrdered By: Christin Grullon on 05-19-2022 ALT No additional P-5'-P [Catalytic activity/Vol] 9 U/L 10-60 [facility] Serum or plasma albumin/glob ulin mass ratioOrdered By: Christin Grullon on 05-19-2022 Albumin/Globulin [Mass ratio] 1.8 {ratio} [facility] Serum or plasma alkaline cooper sphatase measurement (enzymatic activity/volume)Ordered By: Christin Grullon on 05-19-2022 ALP [Catalytic activity/Vol] 98 U/L 32-92 [facility] Serum or plasma anion gap de terminationOrdered By: Christin Grullon on 05-19-2022 Anion gap [Moles/Vol] 13.8 mmol/L 6.0-15.0 [facility] Serum or plasma aspartate am inotransferase measurement (enzymatic activity/volume)Ordered By: Christin Grullon on 05-19-2022 AST [Catalytic activity/Vol] 16 U/L 10-42 [facility] Serum or plasma calcium abhijit urement (mass/volume)Ordered By: Christin Grullon on 05-19-2022 Calcium [Mass/Vol] 9.9 mg/dL 8.2-10.2 [facility] Serum or plasma chloride brandon surement (moles/volume)Ordered By: Christin Grullon on 05-19-2022 Chloride [Moles/Vol] 101 mmol/L 95-114 [facility] Serum or plasma cyclic adeno sine monophosphate measurement (moles/volume)Ordered By: Christin Grullon on 05-19-2022 Adenosine monophosphate.cyclic [Moles/Vol] 4 units 0-19 [facility] Comment on above: Negative <20 Weak po sitive 20 - 39 Moderate positive 40 - 59 Strong positive >59Performed at: - [facility] [id number] Director: Lena Evans MD, Phone: [phone] Serum or plasma glucose abhijit urement (mass/volume)Ordered By: Christin Grullon on 05-19-2022 Glucose [Mass/Vol] 81 mg/dL 70-100 [facility] Comment on above: ADA recommended refe rence rangeRandom Glucose Reference Range is dependent on time and content of last meal. Glucose of more than 200 mg/dL in a nonstressed, ambulatory subject supports the diagnosis of Diabetes Mellitus. Serum or plasma potassium me asurement (moles/volume)Ordered By: Christin Grullon on 05-19-2022 Potassium [Moles/Vol] 4.6 mmol/L 3.5-5.1 [facility] Serum or plasma rheumatoid f actor measurement (units/volume)Ordered By: Christin Grullon on 05-19-2022 Rheumatoid factor Qn [IU]/mL <14.0 [facility] Comment on above: Performed at: [address] [id number] Director: Primitivo Raygoza PhD, Phone: [phone] Serum or plasma sodium measu rement (moles/volume)Ordered By: Christin Grullon on 05-19-2022 Sodium [Moles/Vol] 138 mmol/L 136-146 [facility] Serum or plasma total biliru bin measurement (mass/volume)Ordered By: Christin Grullon on 05-19-2022 Bilirubin [Mass/Vol] 0.4 mg/dL 0.3-1.2 [facility] Serum or plasma total carbon dioxide measurement (moles/volume)Ordered By: Christin Grullon on 05-19-2022 CO2 [Moles/Vol] 27.8 mmol/L 22.0-30.0 [facility] Serum or plasma urea nitroge n measurement (mass/volume)Ordered By: Christin Grullon on 05-19-2022 Urea nitrogen [Mass/Vol] 8 mg/dL 03-14 [facility] WBC Auto (Bld) [#/Vol]Ordere d By: Christin Grullon on 05-19-2022 WBC (Bld) [#/Vol] 7.1 10*3/uL 3.8-11.6 [facility] XR knee standing BIon 2021 XR knee standing BI [facility] [email or web address] Other XR knee standing BI [facility] [email or web address] Other XR knee standing BI [address] [facility] [email or web address] Other XR knee standing BI [place] [id number] K[employer]ICORE Other XR knee standing BI XRay Report Nort [employer] Other XR knee standing BI Signed K[employer]ICORE Other XR knee standing BI Patient: Karen Solis MR#: [id number] [place] [employer] Other XR knee standing BI 01 [employer] Other XR knee standing BI : 1970 Acct:[id number] [employer] Other XR knee standing BI Age/Sex: 52 / F ADM Date: 05/19/22 [employer] Other XR knee standing BI [facility]: [facility] Room: Type: REG CLI [employer] Other XR knee standing BI Attending Dr: Christin Grullon DO [employer] Other XR knee standing BI Copies to: Christin Grullon DO [employer] Other XR knee standing BI Ordering Provider: Christin Grullon DO [employer] Other XR knee standing BI Date of Service: 05/19/22 [employer] Other XR knee standing BI XR/XR shoulder LT min 2V*: Pain in joint, multiple sites;Pain in left [employer] Other XR knee standing BI shoulder [employer] Other XR knee standing BI ([id number]) XR/XR knee standing BI: Pain in joint, multiple sites;Pain in right knee;Pain in lef [employer] Other XR knee standing BI LEFT SHOULDER - - 3 views bilateral knee series, one view each [employer] Other XR knee standing BI CLINICAL HISTORY: Frozen left shoulder for 4 months. Bilateral knee pain left greater than right [employer] Other XR knee standing BI with standing. N [employer] Other XR knee standing BI COMPARISON: Knee series 01/15/2021 [employer] Other XR knee standing BI FINDINGS: K[employer]ORE Other XR knee standing BI Left shoulder: No acute bony process or significant degenerative change. [employer] Other XR knee standing BI Knee series: No acute bony process or significant degenerative change. [employer] Other XR knee standing BI XR/XR shoulder LT min 2V* [employer] Other XR knee standing BI IMPRESSION: Nort [employer] Other XR knee standing BI NO ACUTE BONY PROCESS OR SIGNIFICANT DEGENERATIVE CHANGE INVOLVING THE KNEES OR LEFT SHOULDER. [employer] Other XR knee standing BI Impression dictated by: Jeff Hannah Jr. DJuani05/19/2022 3:54 PM K[employer]ORE Other XR knee standing BI Dictation Location: [place] [address] K[employer]ORE Other XR knee standing BI Transcribed By: PWS 05/19/22 1554 KAICORE Other XR knee standing BI Dictated By: Jeff Hannah Jr, DO 05/19/22 1553 [employer]ORE Other XR knee standing BI Signed By: K[employer]ICORE Other XR knee standing BI 05/19/22 1554 No rt [employer] Other POINT OF CARE GLUCOSEon 01-21 Glucose [Mass/Vol] 126 mg/dL Critically high 74-106 [facility] Comment on above: Performed By: #### P OCGLUC #### [facility] [address] [address] [address] Alex Guy [facility]on 01-21 SARS-CoV-2 (COVID-19) RNA CATALINA+probe Ql (Unsp spec) Not detected Normal NOT DETECTED [facility] Comment on above: Result Comment: This test is not yet approved or cleared by the [place] FDA. When there are no FDA-approved or cleared tests available, and other criteria are met, FDA can make tests available under an emergency access mechanism called an Emergency Use Authorization (EUA). The EUA for this test is supported by the Claims Representative of Health and Human Service's (HHS's) declaration [...] SARS-CoV-2. Performed By: #### C VDTB #### [facility] [address] [place], [place] [address] Dr. Alex Guy XR CHEST 2 Von [...] HUNG ARREDONDO Date: 2022-02-04 07:41 Normal [facility] PROF CHEM 8 (BAS METB)on Anion gap [Moles/Vol] 10.7 mmol/L Normal [facility] Comment on above: Performed By: #### B MP ####[facility] [address] [address]DrGanga Guy Calcium [Mass/Vol] 9.3 mg/dL Normal 8.5-10.1 [facility] Comment on above: Performed By: #### B MP ####[facility] [address] [place], [place] [address]BzGanga Guy Chloride [Moles/Vol] 101 mmol/L Normal 98-107 [facility] Comment on above: Performed By: #### B MP ####[facility] [address] [place], [place] [address]RgGanga Guy CO2 [Moles/Vol] 30.3 mmol/L Normal 21.0-32.[address] [facility] Comment on above: Performed By: #### B MP ####[facility] [address] [address]Dr. Alex Guy Creatinine [Mass/Vol] 0.91 mg/dL Normal 0.55-1.02 [facility] Comment on above: Performed By: #### B MP ####[facility] [address] [place] [address] [address]Dr. Alex Guy EGFR-AF MACEDONIAN >60 Normal >=60 [facility] Comment on above: Performed By: #### B MP ####[facility] [address] [place] [address] [address]Dr. Alex Guy EGFR-NON AF MACEDONIAN >60 Normal >=60 [facility] Comment on above: Performed By: #### B MP ####[facility] [address] [place], [place] [address]Dr. Alex Brooks Glucose [Mass/Vol] 84 mg/dL Normal 74-106 [facility] Comment on above: Performed By: #### B MP ####[facility] [address] [place] [address]Dr. Alex Guy Potassium [Moles/Vol] 5.0 mmol/L Normal 3.5-5.1 [facility] Comment on above: Performed By: #### B MP ####[facility] [address] [place] [address]Dr. Alizelarry Brooks Sodium [Moles/Vol] 137 mmol/L Normal 136-145 [facility] Comment on above: Performed By: #### B MP ####[facility] [address] [place] [address]Dr. Alizelarry Guy Urea nitrogen [Mass/Vol] 8.0 mg/dL Normal 7.0-18.0 [facility] Comment on above: Performed By: #### B MP ####[facility] [address] [place], [place] [address]Dr. Alex Guy Urea nitrogen/Creatinine [Mass ratio] 8.8 mg/mg Normal [facility] Comment on above: Performed By: #### B MP ####[facility] [place], [place] [address] FOOT LT WO CONon [...] by: HUNG ARREDONDO Date: 2021-12-27 18:04 Normal [facility] PROGRESSon 10-19-2018 Protein mass conc HNO ID: [id number] Author: Lian Aparicio Service: ? Author Type: Physician Type: Progress Notes Filed: 10/19/2018 9:59 PM Note Text: [facility] - General Progress Note KAREN SOLIS : 1970 AGE: 48 SEX: F CSN: [id number] [facility]: [facility] LOCATION: [facility] [place] ATTENDING PHYSICIAN: Bill Patten M.D. DATE OF [...] Psych Unit. Lian Aparicio M.D. Internal Medicine JOYNER:[id number] /[id number] [facility] RPRon 08-31-2018 Reagin Ab RPR Ql (S) Nonreactive Normal Nonreactive [facility] Comment on above: Performed By: #### U A, PT, CBCDIF, GBCHEM, GBTSH, MG, RPR #### [facility] [address] [place] [address] CBCDIFon 08-28-2018 Abs Baso 0.06 k/uL Normal 0-0.2 [facility] Comment on above: Performed By: #### U A, PT, CBCDIF, GBCHEM, GBTSH, MG, RPR #### [facility] [address] [place] [address] Abs Pleasants 1.08 k/uL High 0-0.8 [facility] Comment on above: Performed By: #### U A, PT, CBCDIF, GBCHEM, GBTSH, MG, RPR #### [facility] [address] [place] [address] Abs Neut 4.76 k/uL Normal 1.8-7.7 [facility] Comment on above: Performed By: #### U A, PT, CBCDIF, GBCHEM, GBTSH, MG, RPR #### [facility] [address] [place] [address] Basophils/100 WBC (Bld) 0.8 % Normal 0-1 [facility] Comment on above: Performed By: #### U A, PT, CBCDIF, GBCHEM, GBTSH, MG, RPR #### [facility] [address] [place] [address] Eosinophils #/vol (Bld) 0.25 10*3/uL Normal 0-0.4 [facility] Comment on above: Performed By: #### U A, PT, CBCDIF, GBCHEM, GBTSH, MG, RPR #### [facility] [address] [place] [address] Eosinophils/100 WBC (Bld) 3.3 % Normal 0-4 [facility] Comment on above: Performed By: #### U A, PT, CBCDIF, GBCHEM, GBTSH, MG, RPR #### [facility] [address] [place] [address] Immature Gran 0.30 % Normal 0-1.9 [facility] Comment on above: Performed By: #### U A, PT, CBCDIF, GBCHEM, GBTSH, MG, RPR #### [facility] [address] [place] [address] Lymphocytes #/vol (Bld) 1.50 10*3/uL Normal 1.0-4.0 [facility] Comment on above: Performed By: #### U A, PT, CBCDIF, GBCHEM, GBTSH, MG, RPR #### [facility] [address] [place] [address] Lymphocytes/100 WBC (Bld) 19.6 % Low 22-44 [facility] Comment on above: Performed By: #### U A, PT, CBCDIF, GBCHEM, GBTSH, MG, RPR #### [facility] [address] [place] [address] Monocytes/100 WBC (Bld) 14.1 % High 4-[address] [facility] Comment on above: Performed By: #### U A, PT, CBCDIF, GBCHEM, GBTSH, MG, RPR #### [facility] [address] [place] [address] Neutrophils/100 WBC (Bld) 61.9 % Normal 40-70 [facility] Comment on above: Performed By: #### U A, PT, CBCDIF, GBCHEM, GBTSH, MG, RPR #### [facility] [address] [place] [address] Erythrocyte distribution width Ratio (RBC) 13.7 % Normal 11.5-14.5 [facility] Comment on above: Performed By: #### U A, PT, CBCDIF, GBCHEM, GBTSH, MG, RPR #### [facility] [address] [facility] [place] [address] Hematocrit Volume Fraction (Bld) 45.9 % Normal 36.0-46.0 [facility] Comment on above: Performed By: #### U A, PT, CBCDIF, GBCHEM, GBTSH, MG, RPR #### [facility] [address] [place] [address] Hemoglobin mass conc (Bld) 15.0 g/dL Normal 12.0-16.0 [facility] Comment on above: Performed By: #### U A, PT, CBCDIF, GBCHEM, GBTSH, MG, RPR #### [facility] [address] [place] [address] MCH Entitic mass (RBC) 31.5 pG Normal 26-34 [facility] Comment on above: Performed By: #### U A, PT, CBCDIF, GBCHEM, GBTSH, MG, RPR #### [facility] [address] [place] [address] MCHC mass conc (RBC) 32.7 g/dL Normal 31-[address] [facility] Comment on above: Performed By: #### U A, PT, CBCDIF, GBCHEM, GBTSH, MG, RPR #### [facility] [address] [place] [address] MCV Entitic volume (RBC) 96.4 fL Normal 80-100 [facility] Comment on above: Performed By: #### U A, PT, CBCDIF, GBCHEM, GBTSH, MG, RPR #### [facility] [address] [place] [address] NRBCs 0 /100 WBC Normal 0-0.9 [facility] Comment on above: Performed By: #### U A, PT, CBCDIF, GBCHEM, GBTSH, MG, RPR #### [facility] [address] [place] [address] Platelets #/vol (Bld) 248 10*3/uL Normal 150-450 [facility] Comment on above: Performed By: #### U A, PT, CBCDIF, GBCHEM, GBTSH, MG, RPR #### [facility] [address] [place] [address] RBC #/vol (Bld) 4.76 10*6/uL Normal 4.00-5.20 [facility] Comment on above: Performed By: #### U A, PT, CBCDIF, GBCHEM, GBTSH, MG, RPR #### [facility] [address] [place] [address] WBC #/vol (Bld) 7.67 10*3/uL Normal 4.5-11.0 [facility] Comment on above: Performed By: #### U A, PT, CBCDIF, GBCHEM, GBTSH, MG, RPR #### [facility] [address] [place] [address] [facility] Noemy Rich 2018 Albumin mass conc 3.9 g/dL Normal 3.5-5.0 [facility] Comment on above: Performed By: #### U A, PT, CBCDIF, GBCHEM, GBTSH, MG, RPR #### [facility] [address] [place], [place] [id number] Alkaline Phos 112 U/L Normal 38-125 [facility] Comment on above: Performed By: #### U A, PT, CBCDIF, GBCHEM, GBTSH, MG, RPR #### [facility] [address] [place], [place] [id number] ALT enzyme act/vol 42 U/L Normal 9-52 [facility] Comment on above: Performed By: #### U A, PT, CBCDIF, GBCHEM, GBTSH, MG, RPR #### [facility] [address] [place] [address] Amylase enzyme act/vol 44 U/L Normal 30-110 [facility] Comment on above: Performed By: #### U A, PT, CBCDIF, GBCHEM, GBTSH, MG, RPR #### [facility] [address] [place] [address] Anion gap molar conc 12 mmol/L Normal 0-[address] [facility] Comment on above: Performed By: #### U A, PT, CBCDIF, GBCHEM, GBTSH, MG, RPR #### [facility] [address] [place] [address] AST enzyme act/vol 60 U/L High 17-59 [facility] Comment on above: Performed By: #### U A, PT, CBCDIF, GBCHEM, GBTSH, MG, RPR #### [facility] [address] [place] [address] Bilirubin Ql (U) 0.5 mg/dL Normal 0.2-1.3 [facility] Comment on above: Performed By: #### U A, PT, CBCDIF, GBCHEM, GBTSH, MG, RPR #### [facility] [address] [place] [address] Calcium mass conc 9.4 mg/dL Normal 8.4-10.2 [facility] Comment on above: Performed By: #### U A, PT, CBCDIF, GBCHEM, GBTSH, MG, RPR #### [facility] [address] [place] [address] Chloride molar conc 104 mmol/L Normal 98-107 [facility] Comment on above: Performed By: #### U A, PT, CBCDIF, GBCHEM, GBTSH, MG, RPR #### [facility] [address] [place] [address] Cholesterol mass conc 165 mg/dL Normal 100-199 [facility] Comment on above: Performed By: #### U A, PT, CBCDIF, GBCHEM, GBTSH, MG, RPR #### [facility] [address] [place] [address] CO2 molar conc 28 mmol/L Normal 22-30 [facility] Comment on above: Performed By: #### U A, PT, CBCDIF, GBCHEM, GBTSH, MG, RPR #### [facility] [address] [place] [address] Creatinine mass conc 0.87 mg/dL Normal 0.52-1.[address] [facility] Comment on above: Performed By: #### U A, PT, CBCDIF, GBCHEM, GBTSH, MG, RPR #### [facility] [address] [place] [address] eGFR Amer >60 Normal >60 [facility] Comment on above: Result Comment: MDRD calculation used for eGFR results. Performed By: #### U A, PT, CBCDIF, GBCHEM, GBTSH, MG, RPR #### [facility] [address] [place] [address] eGFR non Am >60 Normal >60 [facility] Comment on above: Performed By: #### U A, PT, CBCDIF, GBCHEM, GBTSH, MG, RPR #### [facility] [address] [place] [address] Gamma glutamyl transferase enzyme act/vol 79 U/L High 12-43 [facility] Comment on above: Performed By: #### U A, PT, CBCDIF, GBCHEM, GBTSH, MG, RPR #### [facility] [address] [place] [address] Glucose mass conc 75 mg/dL Normal 74-106 [facility] Comment on above: Performed By: #### U A, PT, CBCDIF, GBCHEM, GBTSH, MG, RPR #### [facility] [address] [place] [address] LDH 496 U/L Normal 318-618 [facility] Comment on above: Performed By: #### U A, PT, CBCDIF, GBCHEM, GBTSH, MG, RPR #### [facility] [address] [place] [address] Phosphate mass conc 4.7 mg/dL High 2.5-4.5 [facility] Comment on above: Performed By: #### U A, PT, CBCDIF, GBCHEM, GBTSH, MG, RPR #### [facility] [address] [place] [address] Potassium molar conc 4.2 mmol/L Normal 3.5-5.[address] [facility] Comment on above: Performed By: #### U A, PT, CBCDIF, GBCHEM, GBTSH, MG, RPR #### [facility] [address] [place] [address] Protein mass conc 6.9 g/dL Normal 6.2-8.2 [facility] Comment on above: Performed By: #### U A, PT, CBCDIF, GBCHEM, GBTSH, MG, RPR #### [facility] [address] [place] [address] Sodium molar conc 140 mmol/L Normal 137-145 [facility] Comment on above: Performed By: #### U A, PT, CBCDIF, GBCHEM, GBTSH, MG, RPR #### [facility] [address] [place] [address] Triglyceride mass conc 123 mg/dL Normal 35-150 [facility] Comment on above: Performed By: #### U A, PT, CBCDIF, GBCHEM, GBTSH, MG, RPR #### [facility] [address] [place], [place] [address] Urate mass conc 2.5 mg/dL Normal 2.5-6.2 [facility] Comment on above: Performed By: #### U A, PT, CBCDIF, GBCHEM, GBTSH, MG, RPR #### [facility] [address] [place] [address] Urea nitrogen mass conc 9 mg/dL Normal 7-17 [facility] Comment on above: Performed By: #### U A, PT, CBCDIF, GBCHEM, GBTSH, MG, RPR #### [facility] [address] [facility] [place], [place] [address] [facility] TSHon 08-28-2018 Thyrotropin Qn 6.750 uU/mL High 0.465-4.680 [facility] Comment on above: Performed By: #### U A, PT, CBCDIF, GBCHEM, GBTSH, MG, RPR #### [facility] [address] [place], [place] [id number] Magnesiumon 08-28-2018 Magnesium mass conc 2.4 mg/dL High 1.3-2.3 [facility] Comment on above: Performed By: #### U A, PT, CBCDIF, GBCHEM, GBTSH, MG, RPR #### [facility] [address] [place], [place] [address] Protimeon 08-28-2018 Prothrombin time (PT) Coag time (PPP) 0.9 s Normal 0.6-1.1 [facility] Comment on above: Result Comment: [...] GBTSH, MG, RPR #### [facility] [address] [facility] [place], [place] [address] Prothrombin time (PT) Coag time (PPP) 12.2 s Normal 11.8-14.1 [facility] Comment on above: Performed By: #### U A, PT, CBCDIF, GBCHEM, GBTSH, MG, RPR #### [facility] [address] [place], [place] [address] T3 Totalon 08-28-2018 T3 Total 1.0 ng/mL Normal 0.970-1.69 [facility] Comment on above: Performed By: #### T 3TOT, T3U, T4 #### [facility] [address] [place], [place] [address] T3 Uptakeon 08-28-2018 T3 Uptake 29.7 % Normal 23.5-40.5 [facility] Comment on above: Performed By: #### T 3TOT, T3U, T4 #### [facility] [address] [place], [place] [address] T4on 08-28-2018 T4 4.4 ug/dL Low 5.5-11.0 [facility] Comment on above: Performed By: #### T 3TOT, T3U, T4 #### [facility] [address] [place], [place] [address] Urinalysison 08-28-2018 Bilirubin mass conc Negative Normal Negative [facility] Comment on above: Performed By: #### U A, PT, CBCDIF, GBCHEM, GBTSH, MG, RPR #### [facility] [address] [place], [place] [address] Clarity Nom (U) Clear Normal Clear [facility] Comment on above: Performed By: #### U A, PT, CBCDIF, GBCHEM, GBTSH, MG, RPR #### [facility] [address] [place] [address] Color Nom (U) Straw Critically abnormal Yellow [facility] Comment on above: Performed By: #### U A, PT, CBCDIF, GBCHEM, GBTSH, MG, RPR #### [facility] [address] [place] [address] Comments MICROSCOPIC ANALYSIS NOT DONE ON URINES WITH NEGATIVE BIOCHEMICAL TESTS Normal [facility] Comment on above: Performed By: #### U A, PT, CBCDIF, GBCHEM, GBTSH, MG, RPR #### [facility] [address] [place] [address] Glucose mass conc Negative Normal Negative [facility] Comment on above: Performed By: #### U A, PT, CBCDIF, GBCHEM, GBTSH, MG, RPR #### [facility] [address] [place] [address] Hemoglobin/Blood Negative Normal Negative [facility] Comment on above: Performed By: #### U A, PT, CBCDIF, GBCHEM, GBTSH, MG, RPR #### [facility] [address] [place] [address] Ketone Negative Normal Negative [facility] Comment on above: Performed By: #### U A, PT, CBCDIF, GBCHEM, GBTSH, MG, RPR #### [facility] [address] [place] [address] Leukest Negative Normal Negative [facility] Comment on above: Performed By: #### U A, PT, CBCDIF, GBCHEM, GBTSH, MG, RPR #### [facility] [address] [place] [address] Nitrite Ql (U) Negative Normal Negative [facility] Comment on above: Performed By: #### U A, PT, CBCDIF, GBCHEM, GBTSH, MG, RPR #### [facility] [address] [place] [address]1966[address] pH (U) 7.0 [pH] Normal 5-7 [facility] Comment on above: Performed By: #### U A, PT, CBCDIF, GBCHEM, GBTSH, MG, RPR #### [facility] [address] [place] [address]1966[address] Protein mass conc (U) Negative Normal Negative [facility] Comment on above: Performed By: #### U A, PT, CBCDIF, GBCHEM, GBTSH, MG, RPR #### [facility] [address] [place] [address] Urine Spec Spencer 1.004 Low 1.005-1.030 [facility] Comment on above: Performed By: #### U A, PT, CBCDIF, GBCHEM, GBTSH, MG, RPR #### [facility] [address] [address]1966[address] Urobilinogen Qn (U) <2.0 Normal 0.0-1.0 [facility] Comment on above: Performed By: #### U A, PT, CBCDIF, GBCHEM, GBTSH, MG, RPR #### [facility] [address] [place] [address]1966[address] ALLIED HEALTHon 08-27-2018 ALLIED HEALTH HNO ID: [id number] Author: Yazmin (Therapist) Adriano Service: Music Therapy [...] much more open to the activities. SIGNATURE: MAI Tristan PATIENT NAME: Karen Solis DATE: August 27, 2018 TIME: 3:49 PM [facility] ALLIED HEALTH HNO ID: [id number] Author: Gifty Kaplan) Calixto Service: Art Therapy Author Type: Art Therapist Type: Allied Health Filed: 08/27/2018 1:50 PM Note Text: GROUP PROGRESS NOTE SERVICE DATE: 08/27/2018 SERVICE TIME: 11:15 AM Length (minutes): 45 Attendance: Full Attendance Participation Level: Active Participation Quality: Appropriate, Attentive, Invested, Sharing and Supportive GROUP PARTICIPATION: Group Topics: Coping Skills: James PATIENT PRESENTATION AND RESPONSE: Affect: Full Mood: Euthymic Cognition: Alert Oriented to - Person, Place, Time, Date, Situation Coherant and Goal Directed Focused Progress: Appeared to successfully internalize the purpose of intervention Pt social and supportive with peers. She enjoyed listening to the music and learning a new game. She is relieved to be going to [facility] for residential today. She feels if she would've went home family stress and idle time would leave her to relapse. SIGNATURE: Gifty De Luna, MINISTER,ATR, BUSINESS INTELLIGENCE ADMINISTRATOR PATIENT NAME: Karen Solis DATE: August 27, 2018 TIME: 1:47 PM [facility] PROGRESSon 08-27-2018 Protein mass conc HNO ID: [id number] Author: Lian Aparicio Service: ? Author Type: Physician Type: Progress Notes Filed: 10/20/2018 9:46 PM Note Text: [facility] - General Progress Note KAREN SOLIS : 1970 AGE: 48 SEX: F CSN: [id number] HOSP SVC: PSYR LOCATION: [facility] [place] ATTENDING PHYSICIAN: Bill Vazirian, M.D. DATE OF EVALUATION: 08/27/2018 SUBJECTIVE: The [...] Smoking cessation. Lian Aparicio M.D. Internal Medicine JOYNER:[id number] [facility] 08-26-2018 ALLIED HEALTH HNO ID: [id number] Author: Lashell (Therapist) Britton Service: Art Therapy [...] images of animals and a cabin in [place]. Pt stated that she enjoyed the presence of animals and that she has always wanted to travel to [place]. SIGNATURE: Lashell Jarquin, [facility] PATIENT NAME: Karen Solis DATE: August 26, 2018 TIME: 3:[address] [facility] HNO ID: [id number] Author: RASHMI Alanis Service: Recreational Therapy Author [...] August 26, 2018 TIME: 2:[address] [facility] HNO ID: [id number] Author: Yazmin (Therapist) Adriano Service: Music Therapy [...] wrote with the group. SIGNATURE: Yazmin Oh [place]-BC PATIENT NAME: Karen Solis DATE: August 26, 2018 TIME: 1:[address] [facility] HNO ID: [id number] Author: Gifty De Luna (Lsw) Service: Art Therapy Author Type: Art Therapist Type: [facility] Filed: 08/26/2018 11:17 AM Note [...] anxious and optimistic about discharge today to [facility] for residential She values her family, dogs, health, God and happiness. She feels her family thinks she values her sobriety and strength currently. She continues to want to work on earning her families trust and respect back . SIGNATURE: Gifty De Luna LPC,ATR, BUSINESS INTELLIGENCE ADMINISTRATOR PATIENT NAME: Karen Solis DATE: August 26, 2018 TIME: 11:08 AM Normal [facility] CBC and Differentialon 08-26 Abs Baso 0.04 k/uL Normal <0.11 [facility] Comment on above: Performed By: #### U HCG, UAWMIC, UTOX2 #### [place] [address] Abs Pleasants 1.07 k/uL High <0.87 [facility] Comment on above: Performed By: #### U HCG, UAWMIC, UTOX2 #### [place] [address] Abs Neut 6.92 k/uL Normal 1.45-7.50 [facility] Comment on above: Performed By: #### U HCG, UAWMIC, UTOX2 #### [place] [address] Basophils/100 WBC (Bld) 0.4 % Normal [facility] Comment on above: Performed By: #### U HCG, UAWMIC, UTOX2 #### [place] [address] Eosinophils #/vol (Bld) 0.19 10*3/uL Normal <0.46 [facility] Comment on above: Performed By: #### U HCG, UAWMIC, UTOX2 #### [place] [address] Eosinophils/100 WBC (Bld) 2.1 % Normal [facility] Comment on above: Performed By: #### U HCG, UAWMIC, UTOX2 #### [place] [address] Erythrocyte distribution width Ratio (RBC) 14.0 % Normal 11.5-15.0 [facility] Comment on above: Performed By: #### U HCG, UAWMIC, UTOX2 #### [place] [address] Hematocrit Volume Fraction (Bld) 41.3 % Normal 36.0-46.0 [facility] Comment on above: Performed By: #### U HCG, UAWMIC, UTOX2 #### [place] [address] Hemoglobin mass conc (Bld) 13.9 g/dL Normal 11.5-15.5 [facility] Comment on above: Performed By: #### U HCG, UAWMIC, UTOX2 #### [place] [address] Lymphocytes #/vol (Bld) 0.86 10*3/uL Low 1.00-4.00 [facility] Comment on above: Performed By: #### U HCG, UAWMIC, UTOX2 #### [place] [address] Lymphocytes/100 WBC (Bld) 9.5 % Normal [facility] Comment on above: Performed By: #### U HCG, UAWMIC, UTOX2 #### [place] [address] MCH Entitic mass (RBC) 32.3 pG Normal 26.0-34.0 [facility] Comment on above: Performed By: #### U HCG, UAWMIC, UTOX2 #### [place] [address] MCHC mass conc (RBC) 33.7 g/dL Normal 30.5-36.0 [facility] Comment on above: Performed By: #### U HCG, UAWMIC, UTOX2 #### [place] [address] MCV Entitic volume (RBC) 95.8 fL Normal 80.0-100.0 [facility] Comment on above: Performed By: #### U HCG, UAWMIC, UTOX2 #### [place] [address] Monocytes/100 WBC (Bld) 11.8 % Normal L [facility] Comment on above: Performed By: #### U HCG, UAWMIC, UTOX2 #### [place] [address] Neutrophils/100 WBC (Bld) 76.2 % Normal [facility] Comment on above: Performed By: #### U HCG, UAWMIC, UTOX2 #### [place] [address] NRBCs 0.0 /100 WBC Normal 0 [facility] Comment on above: Performed By: #### U HCG, UAWMIC, UTOX2 #### [place] [address] Platelet mean volume Entitic volume (Bld) 10.6 fL Normal 9.0-12.7 [facility] Comment on above: Performed By: #### U HCG, UAWMIC, UTOX2 #### [place] [address] Platelets #/vol (Bld) 191 10*3/uL Normal 150-400 [facility] Comment on above: Performed By: #### U HCG, UAWMIC, UTOX2 #### [place] [address] RBC #/vol (Bld) 4.31 10*6/uL Normal 3.90-5.20 [facility] Comment on above: Performed By: #### U HCG, UAWMIC, UTOX2 #### [place] [address] WBC #/vol (Bld) 9.08 10*3/uL Normal 3.70-11.00 [facility] Comment on above: Performed By: #### U HCG, UAWMIC, UTOX2 #### [place] [address] Comp Metabolic Panelon 08-26 Albumin mass conc 3.6 g/dL Low 3.9-4.9 [facility] Comment on above: Performed By: #### U HCG, UAWMIC, UTOX2 #### [place] [address] ALP enzyme act/vol 112 U/L Normal 34-123 [facility] Comment on above: Performed By: #### U HCG, UAWMIC, UTOX2 #### [place] [address] ALT enzyme act/vol 38 U/L Normal 7-38 [facility] Comment on above: Performed By: #### U HCG, UAWMIC, UTOX2 #### [place] [address] Anion gap molar conc 11 mmol/L Normal 9-18 [facility] Comment on above: Performed By: #### U HCG, UAWMIC, UTOX2 #### [place] [address] AST enzyme act/vol 51 U/L High 13-35 [facility] Comment on above: Performed By: #### U HCG, UAWMIC, UTOX2 #### [place] [address] Bilirubin mass conc 0.3 mg/dL Normal 0.2-1.3 [facility] Comment on above: Performed By: #### U HCG, UAWMIC, UTOX2 #### [place] [address] Calcium mass conc 9.1 mg/dL Normal 8.5-10.2 [facility] Comment on above: Performed By: #### U HCG, UAWMIC, UTOX2 #### [place] [address] Chloride molar conc 103 mmol/L Normal 97-105 [facility] Comment on above: Performed By: #### U HCG, UAWMIC, UTOX2 #### [place] [address] CO2 molar conc 24 mmol/L Normal 22-30 [facility] Comment on above: Performed By: #### U HCG, UAWMIC, UTOX2 #### [place] [address] Creatinine mass conc 0.88 mg/dL Normal 0.58-0.96 [facility] Comment on above: Performed By: #### U HCG, UAWMIC, UTOX2 #### [place] [address] eGFR- Amer. >60 Normal >60 [facility] Comment on above: Performed By: #### U HCG, UAWMIC, UTOX2 #### [place] [address] GFR/1.73 sq M predicted among non-blacks MDRD vol rate/area (S/P/Bld) mL/min/{1.73_m2} Normal >60 [facility] Comment on above: Result Comment: [...] By: #### U HCG, UAWMIC, UTOX2 #### [place] [address] Glucose mass conc 115 mg/dL High 74-99 [facility] Comment on above: Performed By: #### U HCG, UAWMIC, UTOX2 #### [place] [address] Potassium molar conc 4.1 mmol/L Normal 3.7-5.1 [facility] Comment on above: Performed By: #### U HCG, UAWMIC, UTOX2 #### [place] [address] Protein mass conc 5.6 g/dL Low 6.3-8.0 [facility] Comment on above: Performed By: #### U HCG, UAWMIC, UTOX2 #### [place] [address] Sodium molar conc 138 mmol/L Normal 136-144 [facility] Comment on above: Performed By: #### U HCG, UAWMIC, UTOX2 #### [place] [address] Urea nitrogen mass conc 9 mg/dL Normal 7-21 L [facility] Comment on above: Performed By: #### U HCG, UAWMIC, UTOX2 #### [place] [address] Magnesiumon 08-26-2018 Magnesium mass conc 2.4 mg/dL High 1.7-2.3 [facility] Comment on above: Performed By: #### U HCG, UAWMIC, UTOX2 #### [place] [address] PROGRESSon 08-26-2018 Protein mass conc HNO ID: [id number] Author: Lian Aparicio Service: ? Author Type: Physician Type: Progress Notes Filed: 10/20/2018 9:49 PM Note Text: [facility] - General Progress Note KAREN SOLIS : 1970 AGE: 48 SEX: F CSN: [id number] [place] [facility] [place] [facility] LOCATION: [facility] [place] ATTENDING PHYSICIAN: Bill Patten M.D. DATE OF [...] reviewed and negative. [facility] Most recent images Reviewed [...] edema Lian Aparicio M.D. Internal Medicine Normal [facility] Phosphoruson 08-26-2018 Phosphate mass conc 4.4 mg/dL Normal 2.7-4.8 [facility] Comment on above: Performed By: #### U HCG, UAWMIC, UTOX2 #### [facility] [address] [address] ALLIED HEALTHon 08-25-2018 [facility] HNO ID: [id number] Author: Katy (Therapist) Ct Service: Art Therapy [...] back of her poem. SIGNATURE: BUNNY Dean, [facility] PATIENT NAME: Karen Solis DATE: August 25, 2018 TIME: 3:[address] [facility] HNO ID: [id number] Author: Lashell (Therapist) Britton Service: Art Therapy [...] happy she is alive. SIGNATURE: Lashell Jarquin [facility] ATR PATIENT NAME: Karen Solis DATE: August 25, 2018 TIME: 1:[address] [facility] HNO ID: [id number] Author: Katy (Therapist) Ct Service: Art Therapy [...] music and the groups. SIGNATURE: BUNNY Dean, [facility] PATIENT NAME: Karen Solis DATE: August 25, 2018 TIME: 11:24 AM Normal [facility] NURSING PROGon 08-25-2018 Protein mass conc HNO ID: [id number] Author: Padilla (Rn) MANI Lewis Service: Nursing Author Type: Registered Nurse Type: Nursing Progress Note Filed: 08/25/2018 6:56 AM Note Text: Nursing Progress Note Patient Name: Karen Solis Patient Location: [address]/[place] [address]* Daily Note:[id number] At beginning of shift pt observed to [...] note was completed by: Padilla Lewis RN [facility] HEALTHon 08-24-2018 [facility] HNO ID: [id number] Author: RASHMI Alanis Service: Recreational Therapy Author [...] DATE: August 24, 2018 TIME: 3:[address] [facility] HNO ID: [id number] Author: Gifty De Luna (Lsw) Service: Art [...] group. SIGNATURE: Gifty De Luna LPC, ATR, BUSINESS INTELLIGENCE ADMINISTRATOR PATIENT NAME: Karen Solis DATE: August 24, 2018 TIME: 4:[address] [facility] HNO ID: [id number] Author: Cathy Lauren-Black Elliott Service: Art Therapy Author Type: Art [...] spouse to confirm treatment option. SIGNATURE: SERA Valente-BUNNY PATIENT NAME: Karen Solis DATE: August 24, 2018 TIME: 2:[address] [facility] HNO ID: [id number] Author: Gifty De Luna (Lsw) Service: Art [...] and meetings. SIGNATURE: Gifty De Luna, ELOY,ATR, BUSINESS INTELLIGENCE ADMINISTRATOR PATIENT NAME: Karen Solis DATE: August 24, 2018 TIME: 1:12 PM [facility] Hepatitis Remote Panelon HBsAg Negative Normal Negative [facility] Comment on above: Performed By: #### U HCG, UAWMIC, UTOX2 #### [place] [address] Hep B Core Ab,Total Negative Normal Negative [facility] Comment on above: Performed By: #### U HCG, UAWMIC, UTOX2 #### [place] [address] Hepatitis C Ab IA Negative Normal Negative [facility] Comment on above: Performed By: #### U HCG, UAWMIC, UTOX2 #### [place] [address] HepB Surface Ab,Qual Negative Normal Negative [facility] Comment on above: Result Comment: NEGA TIVE Performed By: #### U HCG, UAWMIC, UTOX2 #### [place] [address] NURSING PROGon 08-24-2018 Protein mass conc HNO ID: [id number] Author: Padilla (Rn) MANI Lewis Service: Nursing Author Type: Registered Nurse Type: Nursing Progress Note Filed: 08/24/2018 7:01 AM Note Text: Nursing Progress Note Patient Name: Karen Solis Patient Location: [address]/[facility]* Daily Note:[id number] At beginning of shift pt observed to [...] note was completed by: Padilla Lewis RN [facility] PROGRESSon 08-24-2018 Protein mass conc HNO ID: [id number] Author: Lian Aparicio Service: ? Author Type: Physician Type: Progress Notes Filed: 10/17/2018 11:37 PM Note Text: [facility] - General Progress Note KAREN SOLIS : 1970 AGE: 48 SEX: F CSN: [id number] HOSP S[facility]: [facility] LOCATION: [facility] [place] ATTENDING PHYSICIAN: Bill Patten M.D. DATE OF [...] - Chronic obstructive pulmonary disease (COPD) ([facility]) Social History Socioeconomic History Marital status: Unknown [...] reviewed and negative. [facility] Most recent images Reviewed [...] edema Lian Aparicio M.D. Internal Medicine Normal [facility] Syphilis IgG with Confon Syphilis IgG <0.2 Normal [facility] Comment on above: Result Comment: Anti body index is interpreted as follows: Non reactive SPECIMENS <=0.8 Weak reactive SPECIMENS 0.9 to 5.9 Reactive SPECIMENS >=6.0 Performed By: #### U HCG, UAWMIC, UTOX2 #### [facility] [address] [place] [address] Syphilis IgG, Qual Nonreactive Normal Nonreactive [facility] Comment on above: Result Comment: No s erological evidence of infection with T. pallidum. Performed By: #### U HCG, UAWMIC, UTOX2 #### [place] [address] XR LUMBAR 2V AP/LATon 2018 XR LUMBAR [...] Left-sided convex curvature of the lumbar spine. Buckle Coverer: SONNY Transcribe Date/Time: Aug 24 2018 9:30A Dictated by : ARMAND EVANS MD This examination was interpreted and the report reviewed and electronically signed by: ARMAND EVANS MD on Aug 24 2018 9:33AM EST [id number] [facility] HNO ID: [id number] Author: Cathy [facility]Atr[facility] Service: Art Therapy Author Type: [...] to feel little better. SIGNATURE: [facility] Corley [facility] PATIENT NAME: Karen Solis DATE: August 23, 2018 TIME: 5:[address] [facility] HNO ID: [id number] Author: Moncho Hollins (Chaplain) Service: Spiritual Care Author Type: Corset Fitter Type: [facility] Filed: 08/23/2018 12:24 PM [...] August 23, 2018 TIME: 12:[address] [facility] HNO ID: [id number] Author: Gifty De Luna (Lsw) Service: Art Therapy Author Type: Art Therapist Type: [facility] Filed: 08/23/2018 11:16 AM Note Text: GROUP PROGRESS NOTE SERVICE DATE: 08/23/2018 SERVICE TIME: 9:30 AM Length (minutes): 60 Attendance: Sleeping Participation Level: Did Not Attend GROUP PARTICIPATION: Group Topics: Community Meeting: Reflective Quotes, Symptom AND Mood Check-In and Treatment Progress SIGNATURE: Gifty De Luna, MINISTER,ATR, BUSINESS INTELLIGENCE ADMINISTRATOR PATIENT NAME: Karen Solis DATE: August 23, 2018 TIME: 11:15 AM [facility] PROGRESSon 08-23-2018 Protein mass conc HNO ID: [id number] Author: Patsy Juarez Service: General Internal Medicine [...] Juarez MD DATE: August 23, 2018 Normal [facility] PROGRESSon 08-22-2018 Protein mass conc HNO ID: [id number] Author: Lian Aparicio Service: ? Author Type: Physician Type: Progress Notes Filed: 10/18/2018 10:26 PM Note Text: [facility] - General Progress Note KAREN SOLIS : 1970 AGE: 48 SEX: F CSN: [id number] HOSP [facility]: [facility] LOCATION: [facility] [place] ATTENDING PHYSICIAN: Bill Patten M.D. DATE OF [...] EKG/Rhythm reviewed Med list reviewed per AAKASH IANDOs reviewed VS noted per RN Chart GENERAL: o x 3 in distress. SKIN: No rashes . ENT mucosa, Normal/nose normal NECK: no jugulovenous distention NO lymphadenopathy LUNGS:No wheezing,no ronchi no rales. CARDIAC: S1 and S2 ABDOMEN: Abdomen soft, non-tender. EXTREMITIES: Extremities normal. NEURO: non focal PULSES: + pedal / radial Lain Aparicio M.D. [facility] HNO ID: [id number] Author: Gifty De Luna (Lsw) Service: Art [...] therapist attempted to assess. Pt last on [facility] 2012. Therapist will continue to encourage her to attend groups once she is awake/alert. SIGNATURE: Gifty De Luna LPC,BUNNY, JONO PATIENT NAME: Karen Solis DATE: August 21, 2018 TIME: 1:48 PM PAGER/CONTACT #: [facility] HNO ID: [id number] Author: Gifty De Luna (Lsw) Service: Art Therapy Author Type: Art Therapist Type: [facility] Filed: 08/21/2018 2:09 PM Note Text: GROUP PROGRESS NOTE SERVICE DATE: 08/21/2018 SERVICE TIME: 01:45 PM Length (minutes): 15 Attendance: Sleeping Participation Level: Did Not Attend GROUP PARTICIPATION: Group Topics: Art Therapy: Directive - [employer] SIGNATURE: Gifty De Luna LPC,ATR, BUSINESS INTELLIGENCE ADMINISTRATOR PATIENT NAME: Karen Solis DATE: August 21, 2018 TIME: 2:[address] [facility] HNO ID: [id number] Author: Gifty De Luna (Lsw) Service: Art Therapy Author Type: Art Therapist Type: [facility] Filed: 08/21/2018 11:22 AM Note Text: GROUP PROGRESS NOTE SERVICE DATE: 08/21/2018 SERVICE TIME: 11:00 AM Length (minutes): 30 Attendance: Sleeping Participation Level: Did Not Attend GROUP PARTICIPATION: Group Topics: Community Resources: Alcoholics Anonymous SIGNATURE: Gifty De Luna LPCATR, BUSINESS INTELLIGENCE ADMINISTRATOR PATIENT NAME: Karen Solis DATE: August 21, 2018 TIME: 11:[address] [facility] HNO ID: [id number] Author: Gifty De Luna (Lsw) Service: Art Therapy Author Type: Art Therapist Type: [facility] Filed: 08/21/2018 9:43 AM Note Text: GROUP PROGRESS NOTE SERVICE DATE: 08/21/2018 SERVICE TIME: 9:15 AM Length (minutes): 15 Attendance: Sleeping Participation Level: Did Not Attend GROUP PARTICIPATION: Group Topics: Community Meeting: Reflective Quotes, Symptom AND Mood Check-In and Treatment Progress SIGNATURE: Gifty De Luna LPC,ATR, BUSINESS INTELLIGENCE ADMINISTRATOR PATIENT NAME: Karen Solis DATE: August 21, 2018 TIME: 9:43 AM [facility] CBC and Differentialon 08-21 Abs Baso 0.05 k/uL Normal <0.11 [facility] Comment on above: Performed By: #### C BCDIF, ALCO, CMP, MG1 #### [place] [address] Abs Pleasants 0.69 k/uL Normal <0.87 [facility] Comment on above: Performed By: #### C BCDIF, ALCO, CMP, MG1 #### [place] [address] Abs Neut 3.91 k/uL Normal 1.45-7.50 [facility] Comment on above: Performed By: #### C BCDIF, ALCO, CMP, MG1 #### [place] [address] Basophils/100 WBC (Bld) 0.8 % Normal [facility] Comment on above: Performed By: #### C BCDIF, ALCO, CMP, MG1 #### [place] [address] Eosinophils #/vol (Bld) 0.12 10*3/uL Normal <0.46 [facility] Comment on above: Performed By: #### C BCDIF, ALCO, CMP, MG1 #### [place] [address] Eosinophils/100 WBC (Bld) 1.8 % Normal [facility] Comment on above: Performed By: #### C BCDIF, ALCO, CMP, MG1 #### [place] [address] Erythrocyte distribution width Ratio (RBC) 14.2 % Normal 11.5-15.0 [facility] Comment on above: Performed By: #### C BCDIF, ALCO, CMP, MG1 #### [place] [address] Hematocrit Volume Fraction (Bld) 47.2 % High 36.0-46.0 [facility] Comment on above: Performed By: #### C BCDIF, ALCO, CMP, MG1 #### [place] [address] Hemoglobin mass conc (Bld) 17.0 g/dL High 11.5-15.5 [facility] Comment on above: Performed By: #### C BCDIF, ALCO, CMP, MG1 #### [place] [address] Lymphocytes #/vol (Bld) 1.89 10*3/uL Normal 1.00-4.00 [facility] Comment on above: Performed By: #### C BCDIF, ALCO, CMP, MG1 #### [place] [address] Lymphocytes/100 WBC (Bld) 28.4 % Normal [facility] Comment on above: Performed By: #### C BCDIF, ALCO, CMP, MG1 #### [place] [address] MCH Entitic mass (RBC) 32.7 pG Normal 26.0-34.0 [facility] Comment on above: Performed By: #### C BCDIF, ALCO, CMP, MG1 #### [place] [address] MCHC mass conc (RBC) 36.0 g/dL Normal 30.5-36.0 [facility] Comment on above: Performed By: #### C BCDIF, ALCO, CMP, MG1 #### [place] [address] MCV Entitic volume (RBC) 90.8 fL Normal 80.0-100.0 [facility] Comment on above: Performed By: #### C BCDIF, ALCO, CMP, MG1 #### [place] [address] Monocytes/100 WBC (Bld) 10.4 % Normal [facility] Comment on above: Performed By: #### C BCDIF, ALCO, CMP, MG1 #### [place] [address] Neutrophils/100 WBC (Bld) 58.6 % Normal [facility] Comment on above: Performed By: #### C BCDIF, ALCO, CMP, MG1 #### [place] [address] NRBCs 0.0 /100 WBC Normal 0 [facility] Comment on above: Performed By: #### C BCDIF, ALCO, CMP, MG1 #### [place] [address] Platelet mean volume Entitic volume (Bld) 9.1 fL Normal 9.0-12.7 [facility] Comment on above: Performed By: #### C BCDIF, ALCO, CMP, MG1 #### [place] [address] Platelets #/vol (Bld) 278 10*3/uL Normal 150-400 [facility] Comment on above: Performed By: #### C BCDIF, ALCO, CMP, MG1 #### [place] [address] RBC #/vol (Bld) 5.20 10*6/uL Normal 3.90-5.20 [facility] Comment on above: Performed By: #### C BCDIF, ALCO, CMP, MG1 #### [place] [address] WBC #/vol (Bld) 6.66 10*3/uL Normal 3.70-11.00 [facility] Comment on above: Performed By: #### C BCDIF, ALCO, CMP, MG1 #### [place] [address] Comp Metabolic Panelon 08-21 Albumin mass conc 4.6 g/dL Normal 3.9-4.9 [facility] Comment on above: Performed By: #### C BCDIF, ALCO, CMP, MG1 ####[place] [id number] ALP enzyme act/vol 152 U/L High 34-123 [facility] Comment on above: Performed By: #### C BCDIF, ALCO, CMP, MG1 ####[place] [id number] ALT enzyme act/vol 31 U/L Normal 7-38 [facility] Comment on above: Performed By: #### C BCDIF, ALCO, CMP, MG1 ####[place] [id number] Anion gap molar conc 13 mmol/L Normal 9-18 [facility] Comment on above: Performed By: #### C BCDIF, ALCO, CMP, MG1 ####[place] [id number] AST enzyme act/vol 44 U/L High 13-35 [facility] Comment on above: Performed By: #### C BCDIF, ALCO, CMP, MG1 ####[place] [id number] Bilirubin mass conc 0.2 mg/dL Normal 0.2-1.3 [facility] Comment on above: Performed By: #### C BCDIF, ALCO, CMP, MG1 ####[place] [id number] Calcium mass conc 9.1 mg/dL Normal 8.5-10.2 [facility] Comment on above: Performed By: #### C BCDIF, ALCO, CMP, MG1 ####[place] [id number] Chloride molar conc 97 mmol/L Normal 97-105 [facility] Comment on above: Performed By: #### C BCDIF, ALCO, CMP, MG1 ####[place] [id number] CO2 molar conc 26 mmol/L Normal 22-30 [facility] Comment on above: Performed By: #### C BCDIF, ALCO, CMP, MG1 ####[place] [id number] Creatinine mass conc 0.69 mg/dL Normal 0.58-0.96 [facility] Comment on above: Performed By: #### C BCDIF, ALCO, CMP, MG1 ####[place] [id number] eGFR- Amer. >60 Normal >60 [facility] Comment on above: Performed By: #### C BCDIF, ALCO, CMP, MG1 ####[place] [id number] GFR/1.73 sq M predicted among non-blacks MDRD vol rate/area (S/P/Bld) mL/min/{1.73_m2} Normal >60 [facility] Comment on above: Result Comment: [...] By: #### C BCDIF, ALCO, CMP, MG1 ####[place] [address] [place] [id number] Glucose mass conc 124 mg/dL High 74-99 [facility] Comment on above: Performed By: #### C BCDIF, ALCO, CMP, MG1 ####[place] [address] [address] Potassium molar conc 3.6 mmol/L Low 3.7-5.1 [facility] Comment on above: Performed By: #### C BCDIF, ALCO, CMP, MG1 ####[place] [address] [address] Protein mass conc 7.5 g/dL Normal 6.3-8.0 [facility] Comment on above: Performed By: #### C BCDIF, ALCO, CMP, MG1 ####[place] [address] [address] Sodium molar conc 136 mmol/L Normal 136-144 [facility] Comment on above: Performed By: #### C BCDIF, ALCO, CMP, MG1 ####[place] [address] [address] Urea nitrogen mass conc 5 mg/dL Low 7-21 L [facility] Comment on above: Performed By: #### C BCDIF, ALCO, CMP, MG1 ####[facility] [id number] ECG COMPLETEon 08-21-2018 ECG COMPLETE NAME : KAREN SOLIS PID : [id number] : 1970 Gender : Female Race : ORD : [id number] Procedure Date : Aug 20 2018 23:08:21 Edit Date : Aug 22 2018 10:03:53 Diagnosis:SINUS RHYTHM PROBABLE LEFT ATRIAL ABNORMALITY PROBABLE INFERIOR INFARCT, OLD BORDERLINE PROLONGED QT INTERVAL Abnormal ECG No Stemi ROSA MARIA 08/20 @ 2328 Confirmed by DO CRANE NICHOLAS ([id number]), editorial project manager DIONY MASCORRO ([id number]) on 08/22/2018 10:03:50 AM Ventricular Rate : 94 BPM Atrial Rate : 94 BPM P-R Interval : 196 ms QRS Duration : 82 ms Q-T Interval : 400 ms QTC Calculation(Bezet) : 500 ms P [place] : 74 degrees R [place] : 23 degrees T [place] : 46 degrees Test Reason : Pre-OP Location : 502 : LUED 5 Overread By : DO CRANE NICHOLAS Edited By : DIONY MASCORRO Referred By : , Acquired by : PC, [facility] ED NOTEon 08-21-2018 ED NOTE HNO ID: [id number] Author: Mary MoctezumaRn) MANI Quintana Service: (none) Author Type: Registered Nurse Type: ED Notes Filed: 08/21/2018 12:00 AM Note Text: Patient resting in bed, rise and fall of chest observed. Safety maintained and will continue to monitor [facility] ED NOTE HNO ID: [id number] Author: Mary MoctezumaRn) MANI Quintana Service: (none) Author Type: Registered Nurse Type: ED Notes Filed: 08/20/2018 11:38 PM Note Text: Medication given. Patient educated on medication and verbalized understanding. Patient agreeable with POC. Will continue to monitor. [facility] ED NOTE HNO ID: [id number] Author: Mary MoctezumaRn) MANI Quintana Service: (none) Author Type: Registered Nurse Type: ED Notes Filed: 08/20/2018 11:26 PM Note Text: Intake at bedside [facility] ED NOTE HNO ID: [id number] Author: Mary (Rn) MANI Quintana Service: (none) Author Type: Registered Nurse Type: ED Notes Filed: 08/20/2018 11:14 PM Note Text: Labs were drawn and sent. [facility] ED NOTE HNO ID: [id number] Author: Mary MoctezumaRn) MANI Quintana Service: (none) Author Type: Registered Nurse Type: ED Notes Filed: 08/20/2018 11:11 PM Note Text: Medication given. Patient educated on medication and verbalized understanding. Patient agreeable with POC. Will continue to monitor. [facility] ED NOTE HNO ID: [id number] Author: Gwendolyn MoctezumaRn) lCem Rod RN Service: Nursing Author Type: Registered Nurse Type: ED Notes Filed: 08/20/2018 10:55 PM Note Text: Clean catch urine specimen obtained and sent. [facility] ED NOTE HNO ID: [id number] Author: Rubén MoctezumaRn) MANI Gray Service: (none) Author Type: Registered Nurse Type: ED Notes Filed: 08/20/2018 10:53 PM Note Text: Patient has an ID Band on, family at bedside, bed in lowest locked position. Patient provided hospital gown and pants and non slip socks. Patient to restroom to provide sample at this time. [facility] ED PROV NOTEon 08-21-2018 Protein mass conc HNO ID: [id number] Author: Ramin Crane DO Service: Emergency Medicine [...] provided by: Patient, medical records and relative director of testing used: No PAST MEDICAL HISTORY Diagnosis Date [...] per minute AXIS: Normal axis INTERVALS: Normal MA interval QRS COMPLEX: Normal ST SEGMENT: Normal [...] DO Ramin Ventura DO 08/20/18 2347 Normal [facility] Ethanolon 08-21-2018 Ethanol mass conc 247 mg/dL High <11 [facility] Comment on above: Performed By: #### C BCDIF, ALCO, CMP, MG1 #### [place] [id number] HCG Qual, Urineon 08-21-2018 HCG.beta subunit ( test) Ql (U) Negative Normal Negative [facility] Comment on above: Performed By: #### U HCG, UAWMIC, UTOX2 #### [address] [address] Magnesiumon 08-21-2018 Magnesium mass conc 2.2 mg/dL Normal 1.7-2.3 [facility] Comment on above: Performed By: #### C BCDIF, MICHEALO, CMP, MG1 ####[facility] [id number] [phone] NURSING PROGon 08-21-2018 Protein mass conc HNO ID: [id number] Author: Padilla (Rn) MANI Lewis Service: Nursing Author Type: Registered Nurse Type: Nursing Progress Note Filed: 08/21/2018 6:37 AM Note Text: Nursing Progress Note Patient Name: Karen Solis Patient Location: [id number]/[facility]-405* SENSITIVE ADRC Nursing Admission Note PATIENT NAME: Karen Solis SERVICE DATE: 08/21/2018 SERVICE TIME: 414 Level of care:Inpatient Hospital Referred by: Silvia LOU 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 Insurance status:[place] Presenting Problem: drinking 15 beers daily x [...] to toe assessment: Patient presented to the [facility] dressed in a hospital gown with all [...] note was completed by: Padilla Lewis RN [facility] Protein mass conc HNO ID: [id number] Author: Padilla (Rn) MANI Lewis Service: Nursing Author Type: Registered Nurse Type: Nursing Progress Note Filed: 08/21/2018 6:30 AM Note Text: Nursing Progress Note Patient Name: Karen Solis Patient Location: [place]-360S/[facility]-405* SENSITIVE [facility] SUICIDE RISK ASSESSMENT PATIENT NAME: Karen Solis SERVICE DATE: 08/21/2018 SERVICE TIME: 0410 LETHALITY FACTORS: Access to Means: Any firearms in home?No Moved a firearm recently?No Any current suicide plan not involving firearm? No Is patient an inpatient in [facility]?Yes--does any suicide plan suggest risk of harm [...] Presence of Meaningful Daily Activities?Yes Currently employed?No Christianity Affiliation?Yes Therapeutic [place]: Does pt believe treatment can help his/her negative feelings?Yes History of good medication compliance in past?Yes FORMULATION OF SUICIDE RISK: low Will any interventions be undertaken to address above-listed Lethality or Protective Factors? Reduce alcohol and drug abuse Consult Pastoral Care to improve presybeterian affiliation SIGNATURE: Padilla Lewis RN DATE: August 21, 2018 TIME: 6:27 AM Assessment adapted from Suicide Prevention Toolkit for Implementation of NPSG 15A by [facility] Resources This note was completed by: Padilla Lewis RN Normal [facility] PROGRESSon 08-21-2018 Protein mass conc HNO ID: [id number] Author: Lian Aparicio Service: ? Author Type: Physician Type: Progress Notes Filed: 10/17/2018 7:16 PM Note Text: [facility] - General Progress Note KAREN SOLIS : 1970 AGE: 48 SEX: F CSN: [id number] [place] [facility] [place] [facility] LOCATION: [facility] [place] ATTENDING PHYSICIAN: Bill Patten M.D. DATE OF [...] aerosol treatment. Lian Aparicio M.D. Internal Medicine JOYNER:[id number] /[id number] [facility] Protein mass conc HNO ID: [id number] Author: Downtime Note Service: ? Author Type: ? Type: Progress Notes Filed: 08/21/2018 5:27 AM Note Text: Epic Scheduled Downtime: 08/21/2018 1:00:00 AM to 08/21/2018 5:17:00 AM [facility] Toxicology Screen,Uron 08-21 Amphetamines, Urine Negative Normal Negative [facility] Comment on above: Result Comment: Cuto ff threshold at 1000 ng/mL. Performed By: #### U HCG, UAWMIC, UTOX2 #### [place] [address] Barbiturates, Urine Negative Normal Negative [facility] Comment on above: Result Comment: Cuto ff threshold at 200 ng/mL. Performed By: #### U HCG, UAWMIC, UTOX2 #### [place] [address] Benzodiazepines, Ur Negative Normal Negative [facility] Comment on above: Result Comment: Cuto ff threshold at 200 ng/mL. Performed By: #### U HCG, UAWMIC, UTOX2 #### [place] [address] Cannabinoids, Urine Negative Normal Negative [facility] Comment on above: Result Comment: Cuto ff threshold at 50 ng/mL. Performed By: #### U HCG, UAWMIC, UTOX2 #### [place] [address] Cocaine, Urine Negative Normal Negative [facility] Comment on above: Result Comment: Cuto ff threshold at 300 ng/mL. Performed By: #### U HCG, UAWMIC, UTOX2 #### [place] [address] Ethanol, Urine 291 mg/dL High <11 [facility] Comment on above: Performed By: #### U HCG, UAWMIC, UTOX2 #### [place] [address] Opiates, Urine Negative Normal Negative [facility] Comment on above: Result Comment: Cuto ff threshold at 300 ng/mL. Performed By: #### U HCG, UAWMIC, UTOX2 #### [place] [address] Oxycodone, Urine Negative Normal Negative [facility] Comment on above: Result Comment: [...] on the same specimen through Client Services ([phone]) if contacted within 48 hours of initial testing. [1]Substance Abuse and Mental Health Services Administration (2012). Clinical Drug Testing in Primary Care Technical Assistance Publication Series 32. Department of Health and Human Services, [place], p.10. Performed By: #### U HCG, UAWMIC, UTOX2 #### [place] [address] Phencyclidine, Urine Negative Normal Negative [facility] Comment on above: Result Comment: Cuto ff threshold at 25 ng/mL. Performed By: #### U HCG, UAWMIC, UTOX2 #### [place] [address] Urinalysis with Microscopico n 08-21-2018 Bilirubin, Urine Negative Normal Negative [facility] Comment on above: Performed By: #### U HCG, UAWMIC, UTOX2 #### [place] [address] Cast SEE COMMENT Normal 0 [facility] Comment on above: Result Comment: 0 Performed By: #### U HCG, UAWMIC, UTOX2 #### [place] [address] Clarity Nom (U) Clear Normal Clear [facility] Comment on above: Performed By: #### U HCG, UAWMIC, UTOX2 #### [place] [address] Color Nom (U) Straw Critically abnormal Yellow [facility] Comment on above: Performed By: #### U HCG, UAWMIC, UTOX2 #### [place] [address] Epithelial cells LM.HPF #/area (Urine sed) SEE COMMENT Normal [facility] Comment on above: Result Comment: Squa mous 2-5 Performed By: #### U HCG, UAWMIC, UTOX2 #### [place] [address] Glucose Ql (U) Negative Normal Negative [facility] Comment on above: Performed By: #### U HCG, UAWMIC, UTOX2 #### [place] [address] Hemoglobin/Blood,Ur Trace Critically abnormal Negative [facility] Comment on above: Performed By: #### U HCG, UAWMIC, UTOX2 #### [place] [address] Ketones Ql (U) Negative Normal Negative [facility] Comment on above: Performed By: #### U HCG, UAWMIC, UTOX2 #### [place] [address] Leukest Trace Critically abnormal Negative [facility] Comment on above: Performed By: #### U HCG, UAWMIC, UTOX2 #### [place] [address] Nitrite Ql (U) Negative Normal Negative [facility] Comment on above: Performed By: #### U HCG, UAWMIC, UTOX2 #### [place] [address] pH (Bld) 6.0 Normal 4.5-8.0 [facility] Comment on above: Performed By: #### U HCG, UAWMIC, UTOX2 #### [place] [address] Protein mass conc (U) Negative Normal Negative [facility] Comment on above: Performed By: #### U HCG, UAWMIC, UTOX2 #### [place] [address] RBC #/vol (U) 0-3 Normal 0-3 [facility] Comment on above: Performed By: #### U HCG, UAWMIC, UTOX2 #### [place] [address] Specific [place], Ur <=1.005 Normal 1.005-1.030 [facility] Comment on above: Performed By: #### U HCG, UAWMIC, UTOX2 #### [place] [address] Urobilinogen Qn (U) 0.2 Normal 0.2-1.0 [facility] Comment on above: Performed By: #### U HCG, UAWMIC, UTOX2 #### [place] [address] WBC #/vol (Bld) 0-5 Normal 0-5 [facility] Comment on above: Performed By: #### U HCG, UAWMIC, UTOX2 #### [place] [address] HISTORY PHYSICALon 9 HISTORY PHYSICAL HNO ID: [id number] Author: Lian Aparicio Service: ? Author Type: Physician Type: HANDP Filed: 08/23/2018 4:01 PM Note Text: [facility] - History and Physical KAREN SOLIS : 1970 AGE: 48 SEX: F CSN: [id number] HOSP SVC: YR LOCATION: [facility] [place] ATTENDING PHYSICIAN: NALINI NI ADMIT DATE: 08/20/2018 [...] - Chronic obstructive pulmonary disease (COPD) ([facility]) Social History Socioeconomic History Marital status: Spouse [...] F/u cmp Lian Aparicio M.D. Internal Medicine [facility] Vital Signs Date Time Vital Sign Value Performing Clinician Facility 11-06-2023 10:56-0400 Body height 170.18 cm [facility] 11-06-2023 10:56-0400 Body mass index (BMI) [Ratio] 23.6 kg/m2 [facility] 11-06-2023 10:56-0400 Body weight 68.49 kg [facility] 11-06-2023 10:56-0400 Diastolic blood pressure 76 mm[Hg] [facility] 11-06-2023 10:56-0400 Heart rate 72 /min [facility] 11-06-2023 10:56-0400 Respiratory rate 18 /min [facility] 11-06-2023 10:56-0400 SaO2% (BldA) [Mass fraction] 99 % [facility] 11-06-2023 10:56-0400 Systolic blood pressure 118 mm[Hg] [facility] 07-20-2023 13:15-0500 Body height 170.18 cm Isiah Purcell Other [facility] 07-20-2023 13:15-0500 Body mass index (BMI) [Ratio] 22.71 kg/m2 Isiah Purcell Other [facility] Other 07-20-2023 13:15-0500 Body weight 65.77 kg Isiah Purcell Other [facility] 06-10-2023 14:45-0500 Diastolic blood pressure 82 mm[Hg] DO Christin Grullon Work Phone: [facility] 06-10-2023 14:45-0500 Heart rate 70 /min DO Christin Grullon Work Phone: [facility] 06-10-2023 14:45-0500 Respiratory rate 16 /min DO Christin Grullon Work Phone: [facility] 06-10-2023 14:45-0500 SaO2% (BldA) [Mass fraction] 96 % DO Christin Grullon Work Phone: [facility] 06-10-2023 14:45-0500 Systolic blood pressure 132 mm[Hg] DO Christin Grullon Work Phone: [facility] 06-10-2023 12:17-0500 Body temperature 97.7 [degF] DO Christin Grullon Work Phone: [facility] 06-10-2023 12:17-0500 Inhaled oxygen flow rate 6 L/min DO Christin Grullon Work Phone: [facility] 06-10-2023 09:27-0500 Body height 167.64 cm DO Christin Grullon Work Phone: [facility] 06-10-2023 09:27-0500 Body mass index (BMI) [Ratio] 23.5 kg/m2 DO Christin Grullon Work Phone: [facility] 06-10-2023 09:27-0500 Body weight 66 kg DO Christin Grullon Work Phone: [facility] 05-25-2023 10:15-0500 Body height 170.18 cm Isiah Purcell Other [facility] Other 05-25-2023 10:15-0500 Body mass index (BMI) [Ratio] 23.02 kg/m2 Isiah Purcell Other [facility] Other 05-25-2023 10:15-0500 Body weight 66.68 kg Isiah Purcell Other [facility] Other 05-05-2023 09:20-0500 Diastolic blood pressure 74 mm[Hg] DO Christin Grullon Work Phone: [facility] 05-05-2023 09:20-0500 Heart rate 66 /min DO Christin Grullon Work Phone: [facility] 05-05-2023 09:20-0500 Respiratory rate 16 /min DO Christin Grullon Work Phone: [facility] 05-05-2023 09:20-0500 SaO2% (BldA) [Mass fraction] 100 % DO Christin Grullon Work Phone: [facility] 05-05-2023 09:20-0500 Systolic blood pressure 120 mm[Hg] DO Christin Grullon Work Phone: [facility] 05-05-2023 08:42-0500 Inhaled oxygen flow rate 3 L/min DO Christin Grullon Work Phone: [facility] 05-05-2023 07:59-0500 Body height 167.64 cm DO Christin Grullon Work Phone: [facility] 05-05-2023 07:59-0500 Body weight 63.5 kg DO Christin Grullon Work Phone: [facility] 03-17-2023 14:30-0400 Body height 170.18 cm Christin Mead Other [facility] Other 02-24-2023 14:20-0400 Body height 170.18 cm Clovis Andersen Other [facility] Other 02-24-2023 14:20-0400 Body mass index (BMI) [Ratio] 23.02 kg/m2 Clovis Andersen Other [facility] Other 02-24-2023 14:20-0400 Body weight 66.68 kg Clovis Andersen Other [facility] Other 02-24-2023 14:20-0400 Diastolic blood pressure 70 mm[Hg] Clovis Andersen Other [facility] Other 02-24-2023 14:20-0400 Systolic blood pressure 104 mm[Hg] Clovis Andersen Other [facility] Other 12-05-2022 12:00-0400 Body height 170.18 cm Christin Grullon Other [facility] Other 12-05-2022 12:00-0400 Body mass index (BMI) [Ratio] 20.83 kg/m2 Christin Grullon Other [facility] Other 12-05-2022 12:00-0400 Body weight 60.33 kg Christin Grullon Other [facility] Other 12-05-2022 12:00-0400 Diastolic blood pressure 62 mm[Hg] Christin Grullon Other [facility] Other 12-05-2022 12:00-0400 Respiratory rate 18 /min Christin Grullon Other [facility] Other 12-05-2022 12:00-0400 SaO2% (BldA) [Mass fraction] 98 % Christin Grullon Other [facility] Other 12-05-2022 12:00-0400 Systolic blood pressure 118 mm[Hg] Christin Grullon Other [facility] Other 09-26-2022 11:00-0400 Body height 170.18 cm Pratik Cross Other [facility] Other 09-26-2022 11:00-0400 Body mass index (BMI) [Ratio] 20.36 kg/m2 Pratik America Other [facility] Other 09-26-2022 11:00-0400 Body weight 58.97 kg Pratikbaldemar Cross Other [facility] Other 07-16-2022 16:30-0500 Body height 170.18 cm Christin Grullon Other [facility] Other 07-16-2022 16:30-0500 Body mass index (BMI) [Ratio] 19.58 kg/m2 Christin Grullon Other [facility] Other 07-16-2022 16:30-0500 Body weight 56.7 kg Christin Grullon Other [facility] Other 07-16-2022 16:30-0500 Diastolic blood pressure 82 mm[Hg] Christin Grullon Other [facility] Other 07-16-2022 16:30-0500 Respiratory rate 18 /min Christin Grullon Other [facility] Other 07-16-2022 16:30-0500 SaO2% (BldA) [Mass fraction] 98 % Christin Grullon Other [facility] Other 07-16-2022 16:30-0500 Systolic blood pressure 136 mm[Hg] Christin Grullon Other [facility] Other 07-14-2022 11:00-0500 Body temperature 97.7 [degF] DO Christin Grullon Work Phone: [facility] 07-14-2022 11:00-0500 Diastolic blood pressure 75 mm[Hg] DO Christin Grullon Work Phone: [facility] 07-14-2022 11:00-0500 Heart rate 72 /min DO Christin Grullon Work Phone: [facility] 07-14-2022 11:00-0500 Respiratory rate 20 /min DO Christin Grullon Work Phone: [facility] 07-14-2022 11:00-0500 SaO2% (BldA) [Mass fraction] 98 % DO Christin Grullon Work Phone: [facility] 07-14-2022 11:00-0500 Systolic blood pressure 126 mm[Hg] DO Christin Grullon Work Phone: [facility] 07-10-2022 16:43-0500 Body weight 0 kg DO Christin Grullon Work Phone: [facility] 05-19-2022 14:15-0500 Body height 170.18 cm Christin Grullon Other [facility] Other 05-19-2022 14:15-0500 Body mass index (BMI) [Ratio] 19.73 kg/m2 Christin Grullon Other [facility] Other 05-19-2022 14:15-0500 Body weight 57.15 kg Christin Alcocerley Other [facility] Other 05-19-2022 14:15-0500 Diastolic blood pressure 77 mm[Hg] Christin Alcocerley Other [facility] Other 05-19-2022 14:15-0500 Respiratory rate 18 /min Christin Grullon Other [facility] Other 05-19-2022 14:15-0500 SaO2% (BldA) [Mass fraction] 99 % Christin Grullon Other [facility] Other 05-19-2022 14:15-0500 Systolic blood pressure 135 mm[Hg] Christin Grullon Other [facility] Other 05-01-2021 11:15-0500 Body height 170.18 cm Christin Grullon Other [facility] Other 05-01-2021 11:15-0500 Body mass index (BMI) [Ratio] 17.85 kg/m2 Christin Grullon Other [facility] Other 05-01-2021 11:15-0500 Body temperature 97.8 [degF] Christin Grullon Other [facility] Other 05-01-2021 11:15-0500 Body weight 51.71 kg Christin Grullon Other [facility] Other 05-01-2021 11:15-0500 Diastolic blood pressure 84 mm[Hg] Christin Grullon Other [facility] Other 05-01-2021 11:15-0500 Respiratory rate 16 /min Christin Grullon Other [facility] Other 05-01-2021 11:15-0500 SaO2% (BldA) [Mass fraction] 100 % Christin Grullon Other [facility] Other 05-01-2021 11:15-0500 Systolic blood pressure 128 mm[Hg] Christin Grullon Other [facility] Other 03-20-2021 14:15-0400 Body height 170.18 cm Christin Grullon Other [facility] Other 03-20-2021 14:15-0400 Body mass index (BMI) [Ratio] 18.32 kg/m2 Christin Grullon Other [facility] Other 03-20-2021 14:15-0400 Body temperature 99 [degF] Christin Grullon Other [facility] Other 03-20-2021 14:15-0400 Body weight 53.07 kg Christin Grullon Other [facility] Other 03-20-2021 14:15-0400 Diastolic blood pressure 84 mm[Hg] Christin Grullon Other [facility] Other 03-20-2021 14:15-0400 Respiratory rate 16 /min Christin Grullon Other [facility] Other 03-20-2021 14:15-0400 SaO2% (BldA) [Mass fraction] 98 % Christin Grullon Other [facility] Other 03-20-2021 14:15-0400 Systolic blood pressure 118 mm[Hg] Christin Grullon Other [facility] Other Encounters Encounter Date Encounter Type Care Provider Facility Start: 02-01-2024 End: 02-01-2024 ambulatory Damien Pastrana MD Facility: [facility] Start: 12-14-2023 End: 12-14-2023 ambulatory Damien Pastrana MD Facility: [facility] Start: 11-09-2023 End: 11-09-2023 ambulatory [facility] Work Phone: Start: 11-09-2023 End: 11-09-2023 Patient encounter procedure [facility] Work Phone: Start: 11-06-2023 End: 11-06-2023 ambulatory [facility] Work Phone: Start: 11-06-2023 End: 11-06-2023 Patient encounter procedure [facility] [place] Work Phone: Start: 10-14-2023 End: 10-14-2023 ambulatory [facility] Work Phone: Start: 10-14-2023 End: 10-14-2023 Patient encounter procedure [facility] Work Phone: Start: 10-14-2023 Non-patient / Non-visit [facility] Work Phone: Start: 09-30-2023 Non-patient / Non-visit [facility] Work Phone: Start: 09-16-2023 End: 09-16-2023 ambulatory DO Christin Grullon Work Phone: [facility] Work Phone: Start: 09-16-2023 End: 09-16-2023 Patient encounter procedure DO Christin Grullon Work Phone: [facility] Work Phone: Start: 09-16-2023 Non-patient / Non-visit [facility] Work Phone: Start: 09-14-2023 Non-patient / Non-visit DO Ben Grullon Work Phone: [facility] Work Phone: Start: 08-27-2023 End: 08-27-2023 Patient encounter procedure DO Christin Grullon Work Phone: [facility] Work Phone: Start: 07-20-2023 End: 07-20-2023 ambulatory Isiah Purcell Other [facility] Other Start: 07-20-2023 Postop follow up vis it related to original px Isiah Purcell [facility] Start: 07-20-2023 End: 07-20-2023 Patient encounter procedure DO Christin Grullon Work Phone: [facility]- Start: 06-24-2023 End: 06-24-2023 ambulatory Isiah Purcell Other [facility] [email or web address] Other Start: 06-24-2023 Telephone encounter Isiah Purcell [facility] Start: 06-23-2023 End: 06-23-2023 ambulatory Isiah Purcell Facility:[facility] Start: 06-23-2023 Postop follow up vis it related to original px Isiha Purcell [facility] Start: 06-23-2023 End: 06-23-2023 ambulatory DO Christin Grullon Work Phone: [facility] Work Phone: Start: 06-23-2023 End: 06-23-2023 Patient encounter procedure DO Christin Grullon Work Phone: [facility] [place] Start: 06-23-2023 End: 06-23-2023 Patient encounter procedure DO Christin Grullon Work Phone: [facility] Work Phone: Start: 06-18-2023 End: 06-18-2023 ambulatory Isiah Purcell Other [facility] Other Start: 06-18-2023 Telephone encounter Isiah Purcell [facility] Start: 06-16-2023 End: 06-16-2023 ambulatory Julee Khan Other [facility] Other Start: 06-16-2023 Telephone encounter Julee Khan [facility] Start: 06-10-2023 End: 06-10-2023 ambulatory Isiah Purcell Facility:[facility] Start: 06-10-2023 End: 06-10-2023 Admission to same day surgery center DO Christin Grullon Work Phone: [facility] [place] Start: 06-09-2023 End: 06-09-2023 ambulatory Isiah Purcell Other [facility] Other Start: 06-09-2023 Telephone encounter Isiah Purcell [facility] Start: 06-08-2023 (Procedure) Short Christin Mead [facility] Start: 06-08-2023 End: 06-08-2023 ambulatory Christin Mead Other [facility] Other Start: 06-01-2023 End: 06-01-2023 ambulatory Isiah Purcell Facility:[facility] Start: 06-01-2023 End: 06-01-2023 ambulatory DO Christin Grullon Work Phone: [facility] Work Phone: Start: 06-01-2023 End: 06-01-2023 Patient encounter procedure DO Christin Grullon Work Phone: [facility]-Pre-Surgical Testing Work Phone: Start: 05-26-2023 End: 05-26-2023 ambulatory Christin Mead Other [facility] Other Start: 05-26-2023 Office outpatient vi sit 25 minutes Christin Mead [facility] Pain Management [place] Start: 05-25-2023 End: 05-25-2023 ambulatory Isiah Purcell Other [facility] Other Start: 05-25-2023 Encounter by cresencio Grullon [facility] Family [facility] [place] Start: 05-25-2023 Encounter for other preprocedural examination Isiah Purcell [facility] [place] [facility] Start: 05-25-2023 Office outpatient vi sit 40 minutes Isiah Purcell [facility] [place] [facility] Start: 05-05-2023 (Procedure) Short Christin Mead [facility] Start: 05-05-2023 End: 05-05-2023 ambulatory Christin Mead Facility:[facility] Start: 05-05-2023 End: 05-05-2023 Admission to same day surgery center DO Christin Grullon Work Phone: [facility]-Digestive Health Work Phone: Start: 05-05-2023 End: 05-05-2023 ambulatory DO Christin Grullon Work Phone: [facility] Work Phone: Start: 05-04-2023 End: 05-04-2023 ambulatory Christin Mead Other [facility] Other Start: 05-04-2023 Telephone encounter Christin TAN [facility] Start: 04-29-2023 End: 04-29-2023 ambulatory Pratik Cross Other [facility] Other Start: 04-29-2023 Office outpatient vi sit 25 minutes Pratik Cross [facility] [place] [facility] Start: 04-03-2023 End: 04-03-2023 ambulatory Pratik Cross Other [facility] Other Start: 04-03-2023 Telephone encounter Pratik Cross [facility] [place] [facility] Start: 04-02-2023 End: 04-02-2023 ambulatory Christin Grullon Facility:[facility] Start: 04-02-2023 End: 04-02-2023 ambulatory DO Christin Grullon Work Phone: [facility] Work Phone: Start: 04-02-2023 End: 04-02-2023 Patient encounter procedure DO Christin Grullon Work Phone: [facility]-MRI [address] Work Phone: Start: 03-17-2023 End: 03-17-2023 ambulatory Christin Mead Other [facility] Other Start: 03-17-2023 Office outpatient ne w 45 minutes Christin Mead [facility] Pain Management [place] Start: 03-17-2023 Telephone encounter Christin Reyes [employer] Start: 02-24-2023 End: 02-24-2023 ambulatory Gwendolyn Barron Facility:[facility] Start: 02-24-2023 End: 02-24-2023 Patient encounter procedure DO Christin Grullon Work Phone: [facility]-XRay [address] Work Phone: Start: 02-24-2023 End: 02-24-2023 ambulatory DO Christin Grullon Work Phone: [facility] Work Phone: Start: 02-24-2023 Office outpatient ne w 30 minutes Clovis Andersen [facility] Start: 12-31-2022 End: 12-31-2022 ambulatory Christin Grullon Other [facility] Other Start: 12-31-2022 Telephone encounter Christin Reyes [facility] [place] Start: 12-22-2022 End: 12-22-2022 ambulatory Christin Grullon Other [facility] Other Start: 12-22-2022 Telephone encounter Christin Reyes [facility] [place] Start: 12-05-2022 End: 12-05-2022 ambulatory Christin Grullon Other [facility] Other Start: 12-05-2022 Office outpatient vi sit 15 minutes Christin Grullon [facility] [place] Start: 09-26-2022 End: 09-26-2022 ambulatory Pratik Cross Other [facility] Other Start: 09-26-2022 Office outpatient ne w 45 minutes Pratik Cross [facility] [place] [facility] Start: 09-24-2022 End: 09-24-2022 ambulatory Christin Grullon Facility:[facility] Start: 09-24-2022 End: 09-24-2022 ambulatory DO Christin Grullon Work Phone: [facility] Work Phone: Start: 09-24-2022 End: 09-24-2022 Patient encounter procedure DO Christin Grullon Work Phone: [facility]-MRI [address] Work Phone: Start: 07-31-2022 End: 07-31-2022 ambulatory Christin Grullon Other [facility] Other Start: 07-31-2022 Telephone encounter Christin Grullon FP [facility] Medicine [place] Start: 07-30-2022 End: 07-30-2022 ambulatory Christin Grullon Facility:[facility] Start: 07-30-2022 End: 07-30-2022 ambulatory DO Christin Grullon Work Phone: [facility] Work Phone: Start: 07-30-2022 End: 07-30-2022 Patient encounter procedure DO Christin Grullon Work Phone: [facility]-MRI [address] Work Phone: Start: 07-21-2022 Encounter for preprocedural laboratory examination CINDY RODRIGEZ [facility] Start: 07-21-2022 End: 07-21-2022 ambulatory CINDY RODRIGEZ Facility: Start: 07-18-2022 End: 07-19-2022 ambulatory CINDY RODRIGEZ Facility:[facility] Start: 07-18-2022 End: 07-19-2022 Encounter for preprocedural laboratory examination CINDY RODRIGEZ Facility:[facility] Start: 07-16-2022 End: 07-16-2022 ambulatory Christin Grullon Other [facility] Other Start: 07-16-2022 Office outpatient vi sit 25 minutes Christin Grullon [facility] Medicine [place] Start: 07-14-2022 End: 07-15-2022 ambulatory Jose Vincent Facility:[facility] Start: 07-14-2022 End: 07-14-2022 Admission to same day surgery center DO Christin Grullon Work Phone: [facility]-Ultrasound Cntr for Breast Car Start: 07-14-2022 End: 07-14-2022 ambulatory DO Christin Grullon Work Phone: [facility] Work Phone: Start: 07-11-2022 End: 07-12-2022 ambulatory CINDY RODRIGEZ Facility:[facility] Start: 07-10-2022 End: 07-10-2022 ambulatory Jose Vincent Facility:[facility] Start: 07-10-2022 End: 07-10-2022 ambulatory DO Christin Grullon Work Phone: [facility] Work Phone: Start: 07-10-2022 End: 07-10-2022 Patient encounter procedure DO Christin Grullon Work Phone: [facility]-Center [facility] Work Phone: Start: 07-08-2022 End: 07-08-2022 Patient encounter procedure DO Christin Grullon Work Phone: [facility] Work Phone: Start: 07-08-2022 End: 07-08-2022 ambulatory Christin Grullon [facility] [email or web address] Other Start: 07-08-2022 Telephone encounter Christin Reyes [facility] [place] Start: 07-04-2022 End: 07-05-2022 ambulatory [facility] Facility:[facility] Start: 06-30-2022 End: 06-30-2022 ambulatory Christin Grullon Other [facility] Other Start: 06-30-2022 Telephone encounter Christin Reyes [facility] [place] Start: 06-25-2022 End: 06-26-2022 ambulatory [facility] Facility:[facility] Start: 06-24-2022 End: 06-24-2022 ambulatory Christin Grlulon Other [facility] Other Start: 06-24-2022 Telephone encounter Christin Reyes [facility] [place] Start: 06-19-2022 End: 06-19-2022 Patient encounter procedure DO Christin Grullon Work Phone: [facility] Work Phone: Start: 06-03-2022 End: 06-03-2022 ambulatory Christin Grullon Other [facility] Other Start: 06-03-2022 Telephone encounter Christin Reyes [facility] [place] Start: 05-28-2022 End: 05-29-2022 ambulatory [facility] Facility:[facility] Start: 05-20-2022 End: 05-20-2022 ambulatory Christin Grullon Other [facility] Other Start: 05-20-2022 Telephone encounter Christin Reyes [facility] [place] Start: 05-19-2022 Office outpatient vi sit 15 minutes Christin AGUILAR [facility] [place] Start: 05-19-2022 End: 05-19-2022 ambulatory DO Christin Grullon Work Phone: [facility] Other Start: 05-19-2022 End: 05-19-2022 Patient encounter procedure DO Christin Grullon Work Phone: [facility]-X-Ray [facility] Start: 04-30-2022 End: 05-01-2022 ambulatory CINDY JEANBANNER Facility:[facility] Start: 04-14-2022 ambulatory CINDY JEANBANNER Faci lity:[facility] Start: 04-09-2022 End: 04-10-2022 ambulatory PETER D [facility] Facility:[facility] Start: 03-27-2022 End: 03-28-2022 ambulatory CORWIN DAYAN Facility:[facility] Start: 03-06-2022 End: 03-07-2022 ambulatory CHRISTIN GRULLON Facility:[facility] Start: 02-28-2022 End: 02-28-2022 ambulatory CHRISTIN GRULLON Facility:[facility] Start: 02-20-2022 End: 02-21-2022 ambulatory CORWIN DAYAN Facility:[facility] Start: 02-13-2022 End: 02-13-2022 ambulatory CINDY Bertha [facility] Facility:[facility] Start: 02-10-2022 End: 02-11-2022 ambulatory [facility] Bertha [facility] Facility:[facility] Start: 02-04-2022 Encounter for preprocedural cardiovascular examination [facility] Start: 02-04-2022 Encounter for preprocedural laboratory examination [facility] Start: 02-03-2022 End: 02-04-2022 ambulatory [facility] Bertha [facility] Facility:[facility] Start: 02-03-2022 End: 02-04-2022 Encounter for preprocedural cardiovascular examination [facility] Bertha [facility] Facility:[facility] Start: 01-08-2022 End: 01-09-2022 ambulatory CORWIN DAYAN Facility:[facility] Start: 12-27-2021 End: 12-28-2021 ambulatory CORWIN DAYAN Facility:[facility] Start: 12-04-2021 End: 12-05-2021 ambulatory PETER Bertha [facility] Facility:[facility] Start: 11-08-2021 End: 11-08-2021 ambulatory Christin Grullon Other [facility] Other Start: 11-08-2021 Telephone encounter Christin Reyes [facility] [place] Start: 05-01-2021 End: 05-01-2021 ambulatory Christin Grullon Other [facility] Other Start: 05-01-2021 Office outpatient vi sit 15 minutes Christin Grullon [facility] [place] Start: 04-18-2021 Telephone encounter Christin Grullon FP [facility] [place] Start: 03-20-2021 Office outpatient vi sit 15 minutes Christin Grullon [facility] [place] Start: 08-28-2018 End: 09-20-2018 Patient encounter procedure [facility] Start: 08-21-2018 End: 08-27-2018 Evaluation and management of inpatient [facility] Procedures Date Procedure Procedure Detail Performing Clinician Start: 06-23-2023 Plain X-ray of left shoulder DO Christin Alcocerley Work Phone: Start: 06-10-2023 OR Shoulder Arthro RCR/Biceps Tendon (Left) DO Christin Alcocerley Work Phone: Start: 05-05-2023 Local anesthetic lum bar facet joint nerve block DO Christin Grullon Work Phone: Start: 04-02-2023 MRI of left shoulder DO Christin Grullon Work Phone: Start: 02-24-2023 Radiography of thora cic spine DO Christin Alcocerley Work Phone: Start: 09-24-2022 MRI of cervical spin e without contrast DO Christin Grullon Work Phone: Start: 09-24-2022 XR pre/post mri xray DO Christin Grullon Work Phone: Start: 07-30-2022 MRI of head DO Christin Alcocerley Work Phone: Start: 07-14-2022 Mammography of right breast DO Christin Grullon Work Phone: Start: 07-14-2022 Core needle biopsy o f breast using ultrasound guidance DO Christin Alcocerley Work Phone: Start: 07-08-2022 Mammography of right [...] Date Care Activity Detail Author Start: 06-10-2023 [facility] Start: 06-10-2023 [facility] Start: 05-05-2023 [facility] Adenosine monophosphate.cyclic [Moles/volume] in Serum or Plasma [facility] Work Phone: Patient Education Felter Diagnostic Block [facility] Work Phone: Patient referral [facility] Work Phone: Rheumatoid factor [Units/volume] in Serum or Plasma [facility] Work Phone: Immunizations Immunization Date Immunization Notes Care Provider Fa roel 06-26-2023 influenza, injectabl e, quadrivalent, preservative free Isiah Purcell Other [facility] 05-22-2021 COVID-19 mRNA, Comirnaty (Pfizer) DO Christin Grullon Work Phone: [facility] 03-20-2021 Kenalog -40 mg Christin Grullon Other [facility] Other 10-18-2020 COVID-19 Vaccine Pfi zer - Documentation Purposes Only Christin Grullon Other [facility] 09-27-2020 COVID-19 Vaccine Pfi zer - Documentation Purposes Only Christin Grullon Other [facility] 08-24-2018 pneumococcal polysaccharide vaccine, 23 valent Christin Grullon Other [facility] Payers Date Payer Category Payer Unknown 2022 Self-pay [id number] 1970 Unknown [id number] 2.16.84 0.1.452806.3.579.2.593 1970 Unknown [id number] 2.16.84 0.1.666970.3.579.2.593 1969 Unknown [id number] 2.16.84 0.1.373470.3.579.2.593 1969 Unknown [id number] 2.16.84 0.1.156855.3.579.2.593 1969 Unknown [id number] 2.16.84 0.1.220289.3.579.2.593 1969 Unknown [id number] 2.16.84 0.1.398150.3.579.2.593 1969 Unknown [id number] 2.16.84 0.1.901988.3.579.2.593 1969 Unknown [id number] 2.16.84 0.1.972770.3.579.2.593 1969 Unknown [id number] 2.16.84 0.1.036972.3.579.2.593 1969 Unknown [id number] 2.16.84 0.1.363022.3.579.2.593 1969 Unknown [id number] 2.16.84 0.1.586032.3.579.2.593 1969 Unknown [id number] 2.16.84 0.1.130041.3.579.2.593 1969 Unknown [id number] 2.16.84 0.1.960786.3.579.2.593 1969 Unknown [id number] 2.16.84 0.1.926002.3.579.2.593 1969 Unknown [id number] 2.16.84 0.1.214910.3.579.2.593 1969 Unknown [id number] 2.16.84 0.1.778601.3.579.2.593 1969 Unknown [id number] 2.16.84 0.1.155244.3.579.2.593 1969 Unknown [id number] 2.16.84 0.1.141261.3.579.2.593 1969 Unknown [id number] 2.16.84 0.1.915137.3.579.2.593 1969 Unknown [id number] 2.16. 840.1.548312.3.579.2.196 1969 Unknown [id number] 2.16. 840.1.902378.3.579.2.196 1959 Unknown [id number] . 16.840.1.411918.19 Unknown [id number] Unknown [place]/ [id number] Unknown [id number] Unknown [id number] 2.16.8 40.1.278425.3.579.2.531 Unknown [id number] 2.16.8 40.1.173487.3.579.2.531 Unknown [id number] 2.16.8 40.1.471355.3.579.2.531 Unknown [id number] 2.16.8 40.1.719911.3.579.2.531 Unknown [id number] 2.16.8 40.1.231127.3.579.2.531 Unknown [id number] 2.16.8 40.1.118855.3.579.2.531 Unknown [id number] 2.16.8 40.1.106446.3.579.2.531 Unknown [id number] 2.16.8 40.1.486011.3.579.2.531 Unknown [id number] 2.16.8 40.1.510422.3.579.2.531 Unknown [id number] 2.16.8 40.1.903089.3.579.2.531 Unknown [id number] 2.16.8 40.1.103003.3.579.2.531 Social History Date Type Detail Facility Tobacco smoking status [facility] Unknown if ever smoked [facility] Start: 1970 Sex Assigned At Female F [facility] Sex Assigned At Sex Assigned At [facility] [employer] Other Start: 2021 End: 08-17-2023 Tobacco smoking status [facility] Ex-smoker (finding) [facility] Start: 06-01-2023 End: 11-06-2023 Tobacco smoking status MAIS Smoker (finding) [facility] Start: 11-06-2023 Tobacco smoking status [facility] Current Light tobacco smoker [facility] Medical Equipment Procedure Code Equipment Code Equipment Origin al Text Equipment Identifier Dates Tendon/ligament bone anchor, bioabsorbable [id number] [facility] Start: 06-10-2023 Goals Date Patient [...] capsulitis of left shoulder (ICD-10 - M75.02) [facility] Other 01-03-2024 Evaluation note* Encounter Date Diagnosis Assessment Notes Treatment Notes Treatment Clinical Notes Jun, Other specified postprocedural states (ICD-10 - Z98.890) [facility] Other 01-02-2024 Evaluation note* Encounter Date Diagnosis [...] capsulitis of left shoulder (ICD-10 - M75.02) [facility] Other 12-28-2023 Evaluation note* Encounter Date Diagnosis Assessment Notes Treatment Notes Treatment Clinical Notes May, Other specified postprocedural states (ICD-10 - Z98.890) [facility] Other 12-19-2023 Evaluation note* Encounter Date Diagnosis Assessment Notes Treatment Notes Treatment Clinical Notes May, Other specified postprocedural states (ICD-10 - Z98.890) [facility] Other 12-05-2023 Evaluation note* Encounter Date Diagnosis [...] note writ ten by Peter Mayo MA, Title Department Manager. Edited and approved by Dr. Christin Mead MD. [facility] Other 12-04-2023 Evaluation note* Encounter Date Diagnosis [...] of left upper extremity (ICD-10 - M75.22) [facility] Other 11-08-2023 Evaluation note* Encounter Date Diagnosis [...] of left acromioclavicular joint (ICD-10 - M19.012) [facility] Other 10-13-2023 Evaluation note* Encounter Date Diagnosis Assessment Notes Treatment Notes Treatment Clinical Notes Mar, Subacromial impingement of left shoulder (ICD-10 - M75.42) [facility] Other 09-26-2023 Evaluation note* Encounter Date Diagnosis [...] note writ ten by Peter Mayo MA, Title Department Manager. Edited and approved by Dr. Christin [...] negative findings were considered in medical decision-making. [facility] Other 09-05-2023 Evaluation note* Encounter Date Diagnosis [...] M19.012) Feb, Neck pain (ICD-10 - M54.2) [facility] Other 06-16-2023 Evaluation note* Encounter Date Diagnosis [...] quit she does not yet have a 15-vjag-ekyh history and therefore does not qualify for [...] exercises that she can do at home. [facility] Other 04-07-2023 Evaluation note* Encounter Date Diagnosis [...] as documented in the electronic medical record. [facility] Other 01-30-2023 NotePROCEDURE: XR FOOT LT MIN [...] Electronically authenticated by: HUNG ARREDONDO Date: 2022-07-21 12:57[facility]01-25-2023 Evaluation note* Encounter Date Diagnosis Assessment Notes [...] dental work planned in the near future [facility] Other 01-17-2023 NoteReal-time ultrasound evaluation of the retroareolar and inferior central breast was performed. [place] [employer] Other 01-09-2023 Evaluation note* Encounter Date Diagnosis Assessment Notes Treatment Notes Treatment Clinical Notes Jun, Abnormal mammogram of right breast (ICD-10 - R92.8) [facility] Other 01-05-2023 NotePROCEDURE: XR FOOT LT MIN [...] Electronically authenticated by: STERLING THOMAS Date: 2022-06-26 07:43[facility]12-07-2022 NotePROCEDURE: XR FOOT LT MIN 3 VIEWS [...] Electronically authenticated by: HUNG ARREDONDO Date: 2022-05-28 13:49[facility]11-28-2022 Evaluation note* Encounter Date Diagnosis Assessment Notes [...] malignant neoplasm of breast (ICD-10 - Z12.31) [facility] Other 11-09-2022 NotePROCEDURE: XR FOOT LT MIN [...] Electronically authenticated by: STERLING THOMAS Date: 2022-04-30 15:18[facility]10-20-2022 NotePROCEDURE: XR ANKLE LT MIN 3 V, [...] Electronically authenticated by: HUNG ARREDONDO Date: 2022-04-10 06:24[facility]10-20-2022 NotePROCEDURE: XR ANKLE LT MIN 3 V, [...] Electronically authenticated by: HUNG ARREDONDO Date: 2022-04-10 06:24[facility]10-06-2022 NotePROCEDURE: XR FOOT LT MIN 3 VIEWS [...] Electronically authenticated by: STERLING THOMAS Date: 2022-03-27 17:38[facility]09-15-2022 NotePROCEDURE: XR FOOT LT MIN 3 VIEWS [...] Electronically authenticated by: STERLING THOMAS Date: 2022-03-06 11:13[facility]09-01-2022 NotePROCEDURE: XR FOOT LT MIN 3 VIEWS [...] Electronically authenticated by: HUNG ARREDONDO Date: 2022-02-20 10:51[facility]08-26-2022 NotePROCEDURE: XR FOOT LT 2V HISTORY: Pain COMPARISON: XR foot left 12/04/2021 FINDINGS: BONES:Multiple intraoperative spot fluoroscopic images demonstrate midfoot fusion involving the first, second, third tarsal-metatarsal joints. IMPRESSION: 1. Intraoperative left midfoot fusion. Electronically authenticated by: HUNG ARREDONDO Date: 2022-02-14 08:26[facility]08-26-2022 NotePROCEDURE: XR ANKLE LT MIN 3 V, [...] Electronically authenticated by: HUNG ARREDONDO Date: 2022-02-14 08:18[facility]08-26-2022 NotePROCEDURE: XR ANKLE LT MIN 3 V, [...] Electronically authenticated by: HUNG ARREDONDO Date: 2022-02-14 08:18[facility]06-16-2022 NotePROCEDURE: XR FOOT LT MIN 3 VIEWS [...] Electronically authenticated by: HUNG ARREDONDO Date: 2021-12-05 09:48[id number]* Encounter Date Diagnosis Assessment Notes Treatment Notes Treatment Clinical Notes Apr, 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 Consider MRI or PM if not improving with PT [facility] Other 09-29-2021 Evaluation note* Encounter Date Diagnosis [...] if not seeing improvement after 2-3 days [facility] Other Evaluation noteNo InformationNort [employer] Other Evaluation noteNo assessment information available [facility] Work Phone: Evaluation note* Diagnosis Onset Date Resolution Status Breast mass, right acute [facility] Work Phone: Evaluation note* Diagnosis Onset Date Resolution Status Breast mass, right acute Breast mass, right acute [facility] Work Phone: Evaluation note* Diagnosis Onset Date Resolution Status Arthritis of facet joint of cervical spine acute Cervical pain acute Chronic pain acute [facility] Work Phone: Evaluation note* Diagnosis Onset Date Resolution Status Arthritis of facet joint of cervical spine acute Cervical pain acute Chronic pain acute COPD (chronic obstructive pulmonary disease) acute [facility] Work Phone: Evaluation note* Diagnosis Onset Date Resolution Status Arthritis of facet joint of cervical spine acute Cervical pain acute Chronic pain acute COPD (chronic obstructive pulmonary disease) acute Arthritis of facet joint of cervical spine acute Cervical pain acute Chronic pain acute [facility] Work Phone: [facility] general Narrative - Reported* Type Description Date Medical History Anxiety and Depression Medical History Cardiomegaly Medical History alcohol abuse Medical History Benzodiazepine dependence Surgical History hysterectomy 2010 Surgical History appendectomy 2009 Surgical History tonsillectomy as child [facility] P[facility]2008 Hospitalization History [facility] 08/2018 [facility] Other Hiss[facility] general Narrative - Reported* Type Description Date Medical History Anxiety and Depression Medical History Cardiomegaly Medical History alcohol abuse Medical History Benzodiazepine dependence Surgical History hysterectomy 2009 Surgical History appendectomy 2009 Surgical History tonsillectomy as child Surgical History left foot surgery 2021 Hospitalization History [facility] 06/2012 Hospitalization History [facility] - [facility] 01/2008 Hospitalization History [facility] 08/2018 [facility] Other history general Narrative - Reported* Type Description Date Medical History Anxiety and Depression Medical History Cardiomegaly Medical History alcohol abuse Medical History Benzodiazepine dependence Medical History Arthritis Medical History osteoporosis Medical History chronic depression Surgical History hysterectomy 2010 Surgical History appendectomy 2009 Surgical History tonsillectomy as child Surgical History left foot surgery 2021 [facility] P[facility] 01[facility]2008 Hospitalization History [facility] 08/2018 Hospitalization History see above surg. hx. [facility] Other Summary Purpose Family History No Family [...] Diagnosis 1 Cervical spondylosis (M47.812) Referral Organization [facility] urosurgery Referring Provider First Name Clovis Referring Provider Last Name Jaci Referring Provider Specialty Neurologica l Surgery Referred Organization [facility] [place] [facility] Referred Provider Christin Mead Referred Address [address] [place],[phone] Referred Provider Specialty Pain Medicin e Referral Priority Routine Reason 08/13/22 @ tremors , weakness - brain MRI [facility] Diagnosis 1 Intention tremor (G2 5.2) Diagnosis 2 Weakness (R53.1) Referral Organization [facility] Family Medicin e Yordy Referring Provider First Name Christin Referring Provider Last Name Anoop Referring Provider Specialty Family Prac mike Referred Organization [facility] Referred Provider Hung Seo Referred Address [address] [place],[address] Referred Provider Specialty Neurology Referral Priority Routine [...] without myelopathy or radiculopathy (M47.812) Referral Organization [facility] Family Luz Scales Referring Provider First Name Christin Referring Provider Last Name Anoop Referring Provider Specialty Family Cielo mckeon Referred Organization [facility] Referred Address [address] [place] [address] [place], [place] Referred Provider Specialty Physical The rapist Referral Priority Routine General Notes Doreen Bansal 10:54:55 AM > ORDERS NEED TO BE SIGNED BY DR GRULLON.Doreen Bansal 05/01/2021 11:09:47 AM > ORDER SIGNED BY DR GRULLON. FAXED TO [employer] Chief Complaint and Reason for Visit Chief [...] section and content) DATE CREATED AUTHOR 09/23/2018 [facility] DATE CREATED AUTHOR AUTHOR'S ORGANIZ ATION 10/27/2018 [facility] DATE CREATED AUTHOR AUTHOR'S ORGANIZ ATION 09/23/2022 [facility] DATE CREATED AUTHOR AUTHOR'S ORGANIZ ATION 06/24/2023 [facility] DATE CREATED AUTHOR AUTHOR'S ORGANIZ ATION 02/17/2024 [facility] REASON FOR VISIT (unrecogniz ed section [...] MBB C3 C4 /VWpain meds not workingMed Dhnisp3nq Visit Post Op Left ShoulderPatient VMRecheck Left Shoulder Care Teams (unrecognized sec tion and content) Team Status: Inactive Member Role Status Dates Christin Grullon , Primary Care Provider, Attending Provider Active Team Status: Active Member Role Status Dates Christin Grullon DO Primary Care Provider Active Team Status: Inactive Member Role Status Dates Christin Grullon DO Primary Care Provider Active Jose Vincent , DO Attending Provider Active Team Status: Inactive Member Role Status Dates Christin Grullon , Primary Care Provider Active Brenda Hinkle CHARGE ACCOUNT IDENTIFICATION CLERK-C Attending Provider Active Team Status: Inactive Member Role Status Dates Christin Grullon , Primary Care Provider Active Gwendolyn Barron , BUDGET DIRECTOR-SHIRT FOLDING MACHINE OPERATOR-C Attending Provider Active Team Status: Inactive Member Role Status Dates Christin Grullon , Primary Care Provider Active Pratik Cross , Attending Provider Active Team Status: Inactive Member Role Status Dates Christin Grullon , Primary Care Provider Active Christin Mead MD Attending Provider Active Team Status: Inactive Member Role Status Dates Christin Grullon , Primary Care Provider Active Isiah Purcell , Attending Provider Active Team Status: Inactive Member Role Status Dates Provider Conversion Attending Provider Active St art: June 23, 2023 End: June 23, 2023 Team Status: Inactive Member Role Status Dates Christin Grullon DO Primary Care Provider Active Start: June 23, 2023 End: June 23, 2023 Isiah Purcell DO Attending Provider Active St art: June [...] Provider Active Start: September 30, 2023 Veronique Newellcolleenfemaurice , SEASONAL WAREHOUSE ASSOCIATE Attending Provider Active S tart: September 30, 2023 Team Status: Inactive Member Role Status Dates Christin Grullon DO Primary Care Provider Active Start: October 14, 2023 End: October 14, 2023 Christin Mead MD Attending Provider Active Sta rt: October 14, 2023 End: October 14, 2023 Team Status: Active Member Role Status Hernandez Grullon DO Primary Care Provider Active Start: October 14, 2023 Christin Mead MD Attending Provider Active Sta rt: October 14, 2023 Team Status: Inactive Member Role Status Hernandez Grullon DO Primary Care Provid er, Attending Provider Active Start: November 06, 2023 End: November 06, 2023 Team Status: Inactive Member Role Status Hernandez Grullon DO Primary Care Provider Active Start: [...] BE BASED ON THE PRIMARY CLINICAL RECORDS. [employer] provides no warranty or guarantee of the accuracy or completeness of information in this document.
[2024-05-02 07:59] VITALS: BP 120/76; PULSE 70; TEMP 36.5; O2SAT 98
[2024-05-02 08:36] VITALS: BP 122/58; PULSE 63; O2SAT 96
[2024-05-02 08:39] VITALS: BP 111/56; PULSE 61; O2SAT 98
--- NOTE | 2024-05-02 08:43 | W.PM.PROCNOT ---
Date of procedure: 05/02/24 Pre-op diagnosis: CRPS left lower extremity, type 2 Post-op diagnosis: same as pre-op Procedure: Procedure: Left distal sciatic nerve block at the popliteal fossa Medications: Bupivacaine 0.25% 4cc, kenalog 40mg After informed consent was obtained and placed on the chart, the patient was brought to the medical procedures unit and placed in the prone position.? A timeout was completed verifying correct patient, procedure, site, positioning, and planned special equipment.? The area overlying the popliteal fossa was prepped and draped using aseptic technique. Ultrasound guidance was used to find the left distal sciatic nerve, just before it branches into the tibial and common peroneal nerves. A 22-gauge, 4-inch Stimuplex needle with active tip was advanced through a skin wheal raised with 2% lidocaine in the area overlying the site of insertion. The needle was advanced until it abutted the sciatic nerve. A test injection was given with 1cc of the above solution, which showed appropriate spread around the sciatic nerve. ? The above-mentioned injectate was placed in three 1 mL aliquots preceded by negative aspiration without sequelae.? The needle was removed.? The needle insertion site was covered.? The patient was taken to the postprocedural recovery area and monitored for the appropriate length of time, and when the patient was found suitable for discharge in the accompaniment of a responsible adult. Anesthesia: Local Surgeon: Damien Pastrana Pathology: none sent Condition: stable Disposition: no change
[2024-05-02] MEDS: 0.9 % SODIUM CHLORIDE 10 ML SYRINGE - SALINE FLUSH 2 ML INJ (08:44)
[2024-05-02] MEDS: BUPIVACAINE HCL 0.25% PF 25 MG/10 ML VIAL 2 ML INJ (08:45)
[2024-05-02] MEDS: LIDOCAINE HCL 2% PF 100 MG/5 ML VIAL 3 ML INJ (08:45)
[2024-05-02] MEDS: TRIAMCINOLONE ACETONIDE 40 MG/ML VIAL 80 MG INJ (08:45)
== END 2024-05-02 08:47 | disposition home or self-care (01) ==
LOC: SURGOUT 07:45
PROVIDERS: PCP Family Medicine; Visit Provider Anesthesiology
DX: G57.72 Causalgia of left lower limb (principal)
CPT/HCPCS: 64445; J0665; J3301

== ENCOUNTER 2024-05-11 13:35 | Outpatient (OUT) | payer OTHER, SELFPAY ==
--- OUTSIDE RECORDS SUMMARY | 2024-05-11 13:38 | XMS_ITS | CCD ---
Author Organization [facility] Care Team Providers Care Director Wholesale Name Role Phone CHRISTINE TOBIAS Admitting Unavailable CHRISTINE TOBIAS Attending Unavailable NALINI NI Admitting Unavailable LIAN APARICIO Consulting Unavailable BILL PATTEN Attending Unavailable Christin Grullon Unavailable Anoop, Christin Unavailable Anoop, Christin Unavailable DO Christin Grullon Primary Care Provider DO Christin Grullon Attending Provider [phone] DO Jose Vincent Attending Provider [phone] CINDY RODRIGEZ Admitting Unavailable CINDY RODRIGEZ Attending Unavailable CHRISTIN GRULLON [facility] Unavailable MILAN, DR STERLING Reid Consulting Unavailable CINDY RODRIGEZ Consulting Unavailable CINDY RODRIGEZ Admitting Unavailable CINDY RODRIGEZ Attending Unavailable CHRISTIN GRULLON [facility] Unavailable CINDY RODRIGEZ Consulting Unavailable JONATAN STINSON Consulting Unavailable CINDY RODRIGEZ Admitting Unavailable CINDY RODRIGEZ Attending Unavailable CHRISTIN GRULLON [facility] Unavailable MILAN, DR STERLING Reid Consulting Unavailable CINDY RODRIGEZ Consulting Unavailable CIDNY RODRIGEZ Admitting Unavailable CINDY RODRIGEZ Attending Unavailable CHRISTIN GRULLON [facility] Unavailable CINDY RODRIGEZ Consulting Unavailable JONATAN STINSON Consulting Unavailable CINDY RODRIGEZ Admitting Unavailable CINDY RODRIGEZ Attending Unavailable CHRISTIN GRULLON [facility] Unavailable CINDY RODRIGEZ Consulting Unavailable CHRISTIN GRULLON [facility] Unavailable ALONSO ., GRETCHEN Admitting Unavailable GRETCHEN WEINER Attending Unavailable ROSALIA MATTHEW Consulting Unavailabl e CINDY RODRIGEZ Admitting Unavailable CINDY RODRIGEZ [facility] WEST, DR STERLING Reid Consulting Unavailable DAYAN, CORWIN Admitting Unavailable DAYAN, CORWIN Attending Unavailable DAYAN, CORWIN Consulting Unavailable DAYAN, CORWIN Admitting Unavailable DAYAN, CORWIN Attending Unavailable [facility] Unavailable ZIEBER, DR HUNG Story Consulting Unavailable DAYAN, CORWIN Consulting Unavailable HIGHLANDER, CINDY Stone Admitting Unavailable HIGHLANDER, CINDY Stone Attending Unavailable [facility] ZIEBER, DR HUNG Story Consulting Unavailable HIGHLANDERCINDY Consulting Unavailable HIGHLANDER, CINDY Stone Admitting Unavailable HIGHLANDER, CINDY Stone Attending Unavailable [facility] WEST, DR STERLING Reid Consulting Unavailable HIGHLANDERCINDY Consulting Unavailable DAYAN, CORWIN Admitting Unavailable DAYAN, CORWIN Attending Un[facility] DAYAN, CORWIN Consulting Unavailable DAYAN, CORWIN Admitting Unavailable DAYAN, CORWIN Attending Un[facility] Un[facility] ZIEBER, DR HUNG Story Consulting Unavailable DAYAN, CORWIN Consulting Unavailable HIGHLANDER, CINDY Stone Admitting Unavailable HIGHLANDER, CINDY Stone Attending Unavailable [facility] Un[facility] ZIEBER, DR HUNG Story Consulting Unavailable HIGHLANDERCINDY Consulting Unavailable HIGHLANDER, CINDY Stone Admitting Unavailable HIGHLANDER, CINDY Stone Attending Unavailable [facility] ZIEBER, DR HUNG Story Consulting Unavailable HIGHLANDERCINDY Consulting Unavailable Roxanna Nielsen Consulting Unavailable JAVIER ., ANTONIO SEPULVEDA Consulting Unavailable MONALISA CHERY Consulting Unavailable CYRIL PAYNE Consulting Unavailable ELIA, CINDY Stone Admitting Unavailable HIGHLANDER, CINDY Stone Attending [facility] Unavailable ZIEBER, DR HUNG Story Consulting Unavailable HIGHLANDERCINDY Consulting Unavailable DAYAN, CORWIN Admitting Unavailable DAYAN, CORWIN Attending Unavailable [facility] WEST, DR STERLING Reid Consulting Unavailable DAYAN, CORWIN Consulting Unavailable TEDANDER, CINDY Stone Admitting Unavailable HIGHLANDER, CINDY Stone Attending [facility]available [facility] Un[facility] ZIEBER, DR HUNG Story Consulting [...] Attending Provider RONAL Hinkle Attending Provider [phone] Pratik Cross Unavailable Anoop, DO Bowers R Primary Care Provider MILAN [facility]ron[facility]Magdy Plummer Attending Provider Clovis Andersen Unavailable Christin Mead Unavailable DO Pratik Cross Attending Provider [phone] Anoop, DO Bowers R Primary Care Provider MILAN [facility]-Madgy Plummer Attending Provider DO Pratik Cross Attending Provider MD Christin Mead Attending Provider Isiah Purcell Unavailable Anoop, DO Bowers R Primary Care Provider DO Isiah Purcell Attending Provider Julee Khan Unavailable Anoop, Christin R Primary Care Unavailable Gruloln, Christin R Admitting Unavailable Grullon, Christin R [...] Care Provider DO Isiah Purcell Attending Provider [phone] Girealitis , Andkorey Arenas Attending Unavailable Giedraitis , Andkorey Arenas Attending Unavailable Giedraitis , Andrius Vytdarius Attending Unavailable Giedraitis , Andrius Vytdarius Attending Unavailable Unavailable Unavailable Unavailable Allergies Allergy Classification Reported Allergen(s) Allergy Type Date of Onset Reaction(s) Facility (11 sources) Penicillins; Translations: [Penicillins] Allergy to substance 2021 [facility] (1 source) Penicillin Drug Allergy 06-22-2020 [facility] Repository Medications Current Medications Medication Drug Class(es) [...] every 6 hrs for 5 days OSVALDO: [id number] Jun, Active Start: 04-29-2023 take 1 tablet [...] Start: 07-16-2022 take 1 capsule by [facility] every twelve hours Pregabalin 100 MG [...] 11-04-2023 Chronic Other aftercare (1 source) Other fpc (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; Translations: [OTH [facility] CURRENT DRUG THERAPY] Onset: 07-22-2022 Episodic Other [...] min 2V*on XR shoulder LT min 2V* [address] [address] XRay Report Signed Patient: Karen Solis MR#: [id number] 01 : 1970 Acct:[id number] Age/Sex: 53 / F ADM Date: 06/23/23 Loc: [facility]: [facility] Attending Dr: Isiah Purcell DO Copies to: [...] Umesh Perez M.D.06/23/2023 3:46 PM Dictation Location: [place] [address] Transcribed By: [facility] 06/23/23 1546 Dictated By: Umesh Perez DO 06/23/23 1545 Signed By: 06/23/23 1546 Normal [facility] XR shoulder LT min 2V* [facility] [employer] Other XR shoulder LT min 2V* [facility] [employer] Other XR shoulder LT min 2V* [address] [facility] [employer] Other XR shoulder LT min 2V* [place] [address] [facility] [employer] Other XR shoulder LT min 2V* XRay Report N orth [employer] Other XR shoulder LT min 2V* Signed No rt [employer] Other XR shoulder LT min 2V* Patient: Karen Solis MR#: [id number] [place] [employer] Other XR shoulder LT min 2V* 01 No rt [employer] Other XR shoulder LT min 2V* : 1970 Acct:[id number] [facility] Other XR shoulder LT min 2V* Age/Sex: 53 / F A DM Date: 06/23/23 [facility] Other XR shoulder LT min 2V* Loc: [facility] Room: [facility] Other XR shoulder LT min 2V* Attending Dr: Juan Purcell DO [facility] Other XR shoulder LT min 2V* Copies to: Isiah Purcell DO [facility] Other XR shoulder LT min 2V* Ordering Provider : Isiah Purcell DO [facility] Other XR shoulder LT min 2V* Date of Service: 06/23/23 [facility] Other XR shoulder LT min 2V* XR/XR shoulder LT min 2V*: Status post arthroscopy of left shoulder [facility] Other XR shoulder LT min 2V* 3 views LEFT shoulder plain film [facility] Other XR shoulder LT min 2V* HISTORY: Status post LEFT shoulder surgery [facility] Other XR shoulder LT min 2V* COMPARISON: None [facility] Other XR shoulder LT min 2V* ACUTE FINDINGS: None [facility] Other XR shoulder LT min 2V* DEGENERATIVE CHANGE: Unremarkable [facility] Other XR shoulder LT min 2V* SOFT TISSUE FINDINGS: Unremarkable [facility] Other XR shoulder LT min 2V* JOINT EFFUSION: None [facility] Other XR shoulder LT min 2V* POSTOP CHANGES: Resection changes of the acromion/clavicle present. No complication. [facility] Other XR shoulder LT min 2V* BONY MINERALIZATION: Adequate [facility] Other XR shoulder LT min 2V* 7 XR/XR shoulder LT min 2V* [facility] Other XR shoulder LT min 2V* IMPRESSION: Unremarkable postsurgical change. [facility] Other XR shoulder LT min 2V* Impression dictat ed by: Umesh Perez M.D.06/23/2023 3:46 PM [facility] Other XR shoulder LT min 2V* Dictation Locatio n: RADIO-PC-01 [facility] Other XR shoulder LT min 2V* Transcribed By: Danilo HUNTER 06/23/23 1546 [facility] Other XR shoulder LT min 2V* Dictated By: Umesh Perez DO 06/23/23 [facility] Other XR shoulder LT min 2V* Signed By: No rt [employer] Other XR shoulder LT min 2V* 06/23/23 1546 [facility] Other Alanine aminotransferase [En zymatic activity/volume] in Serum or PlasmaOrdered By: Isiah Purcell on 06-01-2023 ALT [Catalytic activity/Vol] 6 U/L 7-52 [facility] Albumin [Mass/volume] in Ser um or Plasma by Bromocresol green (BCG) dye binding methoOrdered By: Isiah Purcell on 06-01-2023 Albumin BCG dye [Mass/Vol] 4.2 g/dL 3.5-5.7 [facility] Alkaline phosphatase [Enzyma tic activity/volume] in Serum or PlasmaOrdered By: Isiah Purcell on 06-01-2023 ALP [Catalytic activity/Vol] 123 U/L 34-104 [facility] Aspartate aminotransferase [ Enzymatic activity/volume] in Serum or PlasmaOrdered By: Isiah Purcell on 06-01-2023 AST [Catalytic activity/Vol] 10 U/L 13-39 [facility] Basophils Auto (Bld) [#/Vol] Ordered By: Isiah Purcell on 06-01-2023 Basophils (Bld) [#/Vol] 0.1 10*3/uL 0.0-0.2 [facility] Basophils/100 WBC Auto (Bld) Ordered By: Isiah Purcell on 06-01-2023 Basophils/100 WBC (Bld) 1.4 % . [facility] Bilirubin.total [Mass/volume ] in Serum or PlasmaOrdered By: Isiah Purcell on 06-01-2023 Bilirubin [Mass/Vol] 0.3 mg/dL 0.3-1.0 [facility] CMP with reflex to A1Con Albumin [Mass/Vol] 4.2 g/dL Normal 3.5-5.7 [facility] Comment on above: Performed By: #### C MP wRFX A1C, CBC #### [facility] [address] Albumin/Globulin [Mass ratio] 1.8 {ratio} Normal [facility] Comment on above: Performed By: #### C MP wRFX A1C, CBC #### [facility] [address] ALP [Catalytic activity/Vol] 123 U/L High 34-104 [facility] Comment on above: Result Comment: PERF ORMED BY: [facility] [address] [place] [address] PATHOLOGIST FELL CUTTER CARLOTTA OLSEN M.D. Performed By: #### C MP wRFX A1C, CBC #### [facility] [address] [place] [address] [place] ALT [Catalytic activity/Vol] 6 U/L Low 7-52 [facility] Comment on above: Performed By: #### C MP wRFX A1C, CBC #### [facility] [address] [place] [address] [place] Anion gap [Moles/Vol] 10.2 mmol/L Normal 6.0-15.[address] [facility] Comment on above: Performed By: #### C MP wRFX A1C, CBC #### [facility] [address] [place] [address] [place] AST [Catalytic activity/Vol] 10 U/L Low 13-39 [facility] Comment on above: Performed By: #### C MP wRFX A1C, CBC #### [facility] [address] Bilirubin [Mass/Vol] 0.3 mg/dL Normal 0.3-1.0 [facility] Comment on above: Performed By: #### C MP wRFX A1C, CBC #### [facility] [address] [place] [address] [place] Calcium [Mass/Vol] 9.6 mg/dL Normal 8.6-10.3 [facility] Comment on above: Performed By: #### C MP wRFX A1C, CBC #### [facility] [address] [place] [address] [place] Chloride [Moles/Vol] 105 mmol/L Normal 98-107 [facility] Comment on above: Performed By: #### C MP wRFX A1C, CBC #### [facility] [address] [place] [address] [place] CO2 [Moles/Vol] 29.0 mmol/L Normal 21.0-31.0 [facility] Comment on above: Performed By: #### C MP wRFX A1C, CBC #### [facility] [address] [place] [address] [place] Creatinine [Mass/Vol] 0.84 mg/dL Normal 0.60-1.20 [facility] Comment on above: Performed By: #### C MP wRFX A1C, CBC #### [facility] [address] [place] [address] [place] GFR/1.73 sq M.predicted MDRD (S/P/Bld) [Vol rate/Area] mL/min/{1.73_m2} Normal [facility] Comment on above: Performed By: #### C MP wRFX A1C, CBC #### [facility] [address] [place] [address] [place] Globulin (S) [Mass/Vol] 2.4 g/dL Normal [facility] Comment on above: Performed By: #### C MP wRFX A1C, CBC #### [facility] [address] [place] [address] [place] Glucose [Mass/Vol] 77 mg/dL Normal 70-100 [facility] Comment on above: Performed By: #### C MP wRFX A1C, CBC #### [facility] [address] [place] [address] [place] Potassium [Moles/Vol] 4.2 mmol/L Normal 3.5-5.1 [facility] Comment on above: Performed By: #### C MP wRFX A1C, CBC #### [facility] [address] [place] [id number] [place] Protein [Mass/Vol] 6.6 g/dL Normal 6.4-8.9 [facility] Comment on above: Performed By: #### C MP wRFX A1C, CBC #### [facility] [address] [place] [id number] [place] Sodium [Moles/Vol] 140 mmol/L Normal 136-145 [facility] Comment on above: Performed By: #### C MP wRFX A1C, CBC #### [facility] [address] [place] [id number] [place] Urea nitrogen [Mass/Vol] 7 mg/dL Normal 7-25 [facility] Comment on above: Performed By: #### C MP wRFX A1C, CBC #### [facility] [address] [place] [id number] [place] Calcium [Mass/volume] in Ser um or PlasmaOrdered By: Isiah Purcell on 06-01-2023 Calcium [Mass/Vol] 9.6 mg/dL 8.6-10.3 [facility] Carbon dioxide, total [Moles /volume] in Serum or PlasmaOrdered By: Isiah Purcell on 06-01-2023 CO2 [Moles/Vol] 29.0 mmol/L 21.0-31.0 [facility] Chloride [Moles/volume] in S migue or PlasmaOrdered By: Isiah Purcell on 06-01-2023 Chloride [Moles/Vol] 105 mmol/L 98-107 [facility] Complete Blood Count Auto Di ffon 06-01-2023 Basophils (Bld) [#/Vol] 0.1 10*3/uL Normal 0.0-0.2 [facility] Comment on above: Result Comment: PERF ORMED BY: [place] [address] PATHOLOGIST FELL CUTTER CARLOTTA OLSEN M.D. Performed By: #### C MP wRFX A1C, CBC #### [facility] [address] [place] [address] Basophils/100 WBC (Bld) 1.4 % Normal . [facility] Comment on above: Performed By: #### C MP wRFX A1C, CBC #### [facility] [address] [place] [address] [place] Eosinophils (Bld) [#/Vol] 0.1 10*3/uL Normal 0.0-0.45 [facility] Comment on above: Performed By: #### C MP wRFX A1C, CBC #### [place] [address] [place] Eosinophils/100 WBC (Bld) 1.8 % Normal . [facility] Comment on above: Performed By: #### C MP wRFX A1C, CBC #### [facility] [address] [place] [address] Erythrocyte distribution width (RBC) [Ratio] 13.4 % Normal 11.9-15.3 [facility] Comment on above: Performed By: #### C MP wRFX A1C, CBC #### [facility] [address] [place] [address] [place] Hematocrit (Bld) [Volume fraction] 40.1 % Normal 34.0-46.4 [facility] Comment on above: Performed By: #### C MP wRFX A1C, CBC #### [facility] [address] Hemoglobin (Bld) [Mass/Vol] 13.7 g/dL Normal 11.8-15.4 [facility] Comment on above: Performed By: #### C MP wRFX A1C, CBC #### [address] Lymphocytes (Bld) [#/Vol] 1.5 10*3/uL Normal 1.00-4.8 [facility] Comment on above: Performed By: #### C MP wRFX A1C, CBC #### [address] Lymphocytes/100 WBC (Bld) 20.3 % Normal . [facility] Comment on above: Performed By: #### C MP wRFX A1C, CBC #### [address] MCH (RBC) [Entitic mass] 30.3 pg Normal 24.7-34.3 [facility] Comment on above: Performed By: #### C MP wRFX A1C, CBC #### [address] MCV (RBC) [Entitic vol] 88.8 fL Normal 80-100 [facility] Comment on above: Performed By: #### C MP wRFX A1C, CBC #### [address] Mean Corpuscular HGB Conc 34.1 g/dL Normal 32.0-35.0 [facility] Comment on above: Performed By: #### C MP wRFX A1C, CBC #### [place] [address] [place] Monocytes (Bld) [#/Vol] 0.6 10*3/uL Normal 0.0-0.8 [facility] Comment on above: Performed By: #### C MP wRFX A1C, CBC #### [facility] [address] [place] [id number] [place] Monocytes/100 WBC (Bld) 8.7 % Normal . [facility] Comment on above: Performed By: #### C MP wRFX A1C, CBC #### [facility] [address] Neutrophils (Bld) [#/Vol] 5.0 10*3/uL Normal 1.8-7.7 [facility] Comment on above: Performed By: #### C MP wRFX A1C, CBC #### [facility] [address] [place] [address] [place] Neutrophils/100 WBC (Bld) 67.8 % Normal . [facility] Comment on above: Performed By: #### C MP wRFX A1C, CBC #### [facility] [address] [place] [address] [place] NRBC% 0.0 /100{WBC} Normal 0-0.5 [facility] Comment on above: Performed By: #### C MP wRFX A1C, CBC #### [facility] [address] [place] [address] [place] Platelet mean volume (Bld) [Entitic vol] 8.2 fL Normal 6.3-10.7 [facility] Comment on above: Performed By: #### C MP wRFX A1C, CBC #### [facility] [address] [place] [id number] [place] Platelets (Bld) [#/Vol] 377 10*3/uL Normal 150-450 [facility] Comment on above: Performed By: #### C MP wRFX A1C, CBC #### [facility] [address] [place] [id number] [place] RBC (Bld) [#/Vol] 4.52 10*6/uL Normal 3.60-5.00 [facility] Comment on above: Performed By: #### C MP wRFX A1C, CBC #### [facility] [address] [place] [address] [place] WBC (Bld) [#/Vol] 7.3 10*3/uL Normal 3.8-11.6 [facility] Comment on above: Performed By: #### C MP wRFX A1C, CBC #### [facility] [address] [place] [address] Creatinine [Mass/volume] in Serum or PlasmaOrdered By: Isiah Purcell on 06-01-2023 Creatinine [Mass/Vol] 0.84 mg/dL 0.60-1.20 [facility] ECG 12 lead ECGon 06-01-2023 ECG 12 lead ECG [facility] Main [place] [address] [place] [address] Electrocardiograph Report Signed Patient: Karen Solis MR#: [id number] 01 : 1970 Acct:[id number] Age/Sex: 53 / F ADM Date: 06/01/23 Loc: Room: [facility] Attending Dr: Isiah Purcell DO Ordering Provider: [...] Signed By Christin Brown MD 2138 Normal [facility] Eosinophils Auto (Bld) [#/Vo l]Ordered By: Isiah Purcell on 06-01-2023 Eosinophils (Bld) [#/Vol] 0.1 10*3/uL 0.0-0.45 [facility] Eosinophils/100 WBC Auto (Bl d)Ordered By: Isiah Purcell on 06-01-2023 Eosinophils/100 WBC (Bld) 1.8 % . [facility] Erythrocyte distribution wid th Auto (RBC) [Ratio]Ordered By: Isiah Purcell on 06-01-2023 Erythrocyte distribution width (RBC) [Ratio] 13.4 % 11.9-15.3 [facility] Globulin Calc (S) [Mass/Vol] Ordered By: Isiah Purcell on 06-01-2023 Globulin (S) [Mass/Vol] 2.4 g/dL [facility] Glucose [Mass/volume] in Ser um or PlasmaOrdered By: Isiah Purcell on 06-01-2023 Glucose [Mass/Vol] 77 mg/dL 70-100 [facility] Hematocrit Auto (Bld) [Volum e fraction]Ordered By: Isiah Purcell on 06-01-2023 Hematocrit (Bld) [Volume fraction] 40.1 % 34.0-46.4 [facility] Hemoglobin [Mass/volume] in BloodOrdered By: Isiah Purcell on 06-01-2023 Hemoglobin (Bld) [Mass/Vol] 13.7 g/dL 11.8-15.4 [facility] Leukocytes [#/volume] correc lizbet for nucleated erythrocytes in Blood by Automated counOrdered By: Isiah Purcell on 06-01-2023 WBC corrected for nucl RBC Auto (Bld) [#/Vol] 7.3 10*3/uL 3.8-11.6 [facility] Lymphocytes Auto (Bld) [#/Vo l]Ordered By: Isiah Purcell on 06-01-2023 Lymphocytes (Bld) [#/Vol] 1.5 10*3/uL 1.00-4.8 [facility] Lymphocytes/100 WBC Auto (Bl d)Ordered By: Isiah Purcell on 06-01-2023 Lymphocytes/100 WBC (Bld) 20.3 % . [facility] MCH Auto (RBC) [Entitic mass ]Ordered By: Isiah Purcell on 06-01-2023 MCH (RBC) [Entitic mass] 30.3 pg 24.7-34.3 [facility] MCHC Auto (RBC) [Mass/Vol]Or dered By: Isiah Purcell on 06-01-2023 MCHC (RBC) [Mass/Vol] 34.1 g/dL 32.0-35.0 [facility] MCV Auto (RBC) [Entitic vol] Ordered By: Isiah Purcell on 06-01-2023 MCV (RBC) [Entitic vol] 88.8 fL 80-100 [facility] Monocytes Auto (Bld) [#/Vol] Ordered By: Isiah Purcell on 06-01-2023 Monocytes (Bld) [#/Vol] 0.6 10*3/uL 0.0-0.8 [facility] Monocytes/100 WBC Auto (Bld) Ordered By: Isiah Purcell on 06-01-2023 Monocytes/100 WBC (Bld) 8.7 % . [facility] Neutrophils Auto (Bld) [#/Vo l]Ordered By: Isiah Purcell on 06-01-2023 Neutrophils (Bld) [#/Vol] 5.0 10*3/uL 1.8-7.7 [facility] Neutrophils/100 WBC Auto (Bl d)Ordered By: Isiah Purcell on 06-01-2023 Neutrophils/100 WBC (Bld) 67.8 % . [facility] No Panel InformationOrdered By: Isiah Purcell on 06-01-2023 Estimated GFR (CKD-EPI) > 60.0 mL/Min [facility] Creatinine Clearance (Chem N/A [facility] Nucleated erythrocytes [Pres ence] in Blood by Automated countOrdered By: Isiah Purcell on 06-01-2023 Nucleated RBC Auto Ql (Bld) 0.0 /100{WBC} 0-0.5 [facility] Platelet mean volume Auto (B ld) [Entitic vol]Ordered By: Isiah Purcell on 06-01-2023 Platelet mean volume (Bld) [Entitic vol] 8.2 fL 6.3-10.7 [facility] Platelets Auto (Bld) [#/Vol] Ordered By: Isiah Purcell on 06-01-2023 Platelets (Bld) [#/Vol] 377 10*3/uL 150-450 [facility] Potassium [Moles/volume] in Serum or PlasmaOrdered By: Isiah Purcell on 06-01-2023 Potassium [Moles/Vol] 4.2 mmol/L 3.5-5.1 [facility] Protein [Mass/volume] in Ser um or PlasmaOrdered By: Isiah Purcell on 06-01-2023 Protein [Mass/Vol] 6.6 g/dL 6.4-8.9 [facility] RBC Auto (Bld) [#/Vol]Ordere d By: Isiah Purcell on 06-01-2023 RBC (Bld) [#/Vol] 4.52 10*6/uL 3.60-5.00 [facility] Serum or plasma albumin/glob ulin mass ratioOrdered By: Isiah Purcell on 06-01-2023 Albumin/Globulin [Mass ratio] 1.8 {ratio} [facility] Serum or plasma anion gap de terminationOrdered By: Isiah Purcell on 06-01-2023 Anion gap [Moles/Vol] 10.2 mmol/L 6.0-15.[address] [facility] Sodium [Moles/volume] in Ser um or PlasmaOrdered By: Isiah Purcell on 06-01-2023 Sodium [Moles/Vol] 140 mmol/L 136-145 [facility] Urea nitrogen [Mass/volume] in Serum or PlasmaOrdered By: Isiah Purcell on 06-01-2023 Urea nitrogen [Mass/Vol] 7 mg/dL 7-25 [facility] WBC Auto (Bld) [#/Vol]Ordere d By: Isiah Purcell on 06-01-2023 WBC (Bld) [#/Vol] 7.3 10*3/uL 3.8-11.6 [facility] MR shoulder LT wo conon 03-22 MR shoulder LT wo con [facility] [place] [address] MRI Report Signed Patient: Karen Solis MR#: [id number] 01 : 1970 Acct:[id number] Age/Sex: 52 / F ADM Date: 04/02/23 [facility] CLI Attending Dr: Pratik Cross DO [...] Rian Royal M.D.04/02/2023 4:38 PM Dictation Location: [place] [address] Transcribed By: [facility] 04/02/23 6657 Dictated By: Rian Royal II, MD 04/02/23 163 Signed By: 04/02/231637 [facility] XR thoracic spine 3V*on XR thoracic spine 3V* [facility] Main [address] [address] XRay Report Signed Patient: Karen Solis MR#: [id number] 01 : 1970 Acct:[id number] Age/Sex: 52 / F ADM Date: 02/24/23 Loc: [facility] Room: Type: REG CLI Attending Dr: Gwendolyn MULLER Copies to: [...] Perla Mcnally M.D.02/24/2023 4:32 PM Dictation Location: [place] [address] Transcribed By: [facility] 02/24/23 163 Dictated By: Perla Mcnally MD 02/24/23 163 Signed By: 02/24/23 163 [facility] XR pre/post mri xrayon 09-24 XR pre/post mri xray [facility] Main [address] [address] MRI Report Signed Patient: Karen Solis MR#: [id number] [birth year] : 1970 Acct:[id number] Age/Sex: 52 / F ADM Date: 09/24/22 [facility]: Type: REG CLI Attending Dr: Brenda VILLEDA Copies to: RONAL Collazo Ordering Provider: RONAL Collazo Date of Service: 09/24/22 MR/MR cervical spine wo con: M54.12 ([id number]) XR/XR pre/post mri xray: C-SPINE MRI cervical [...] Dictation Location: RADIO-PC-01 Transcribed By: ANJEL 09/24/22 152 Dictated By: Umesh Perez DO 09/24/22 1517 Signed By: 09/24/22 1522 [facility] MR head/brain wo conon 07-30 MR head/brain wo con [facility] [place] [address] MRI Report Signed Patient: Karen Solis MR#: [id number] 01 : 1970 Acct:[id number] Age/Sex: 52 / F ADM Date: 07/30/22 [facility] Attending Dr: Christin Grullon DO Copies [...] 07/30/22 1647 Signed By: 07/30/22 1655 Normal [facility] MR head/brain wo con [facility] [employer] Other MR head/brain wo con [facility] [employer] Other MR head/brain wo con [address] [place] [address] [employer] Other MR [place] [address] [facility] Other MR head/brain wo con MRI Report [facility] [employer] Other MR head/brain wo con Signed [employer] Other MR head/brain wo con Patient: Karen Solis MR#: [id number] [facility] Other MR head/brain wo con 01 [facility] [employer] Other MR head/brain wo con : 1970 Acct:[id number] [facility] Other MR head/brain wo con Age/Sex: 52 / F ADM Date: 07/30/22 [facility] Other MR head/brain wo con Loc: [facility] Room: [facility] Other MR head/brain wo con Attending Dr: Christin Grullon DO [facility] Other MR head/brain wo con Copies to: Christin Grullon DO [facility] Other MR head/brain wo con Ordering Provider: Christin Grullon DO [facility] Other MR head/brain wo con Date of Service: 07/30/22 [facility] Other MR head/brain wo con MR/MR head/brain wo con: Generalized headaches;Intention tremor;Pain in [facility] Other MR head/brain wo con unspecified l N [facility] [employer] Other MR head/brain wo con EXAMINATION: MRI OF THE BRAIN WITHOUT CONTRAST [facility] Other MR head/brain wo con CLINICAL HISTORY: Headache and intention tremor for the past few months, mostly on the left. [facility] Other MR head/brain wo con COMPARISON: CT 2021 [facility] Other MR head/brain wo con TECHNIQUE: Multiecho, multiplanar imaging of the brain was performed without enhancement. [facility] Other MR head/brain wo con The ventricles are normal in size and position. A small nonspecific focus of increased T2 and FLAIR [facility] Other MR head/brain wo con signal is present within the subcortical white matter of the right parietal lobe (axial image 15). [facility] Other MR head/brain wo con There is also very subtle increased signal within the suzie. This is nonspecific and could be [facility] Other MR head/brain wo con minimal microvascular disease. Demyelination is thought less likely given the distribution. A [facility] Other MR head/brain wo con prominent perivascular space is noted at the inferior basal ganglia region on the left. There are [facility] Other MR head/brain wo con no additional areas of abnormal signal intensity within the supra- or infratentorial brain. No [facility] Other MR head/brain wo con restricted diffusion is identified to suggest a recent ischemic event. There are no extra-axial [facility] Other MR head/brain wo con collections or mass effect. The imaged paranasal sinuses and mastoid air cells are clear. [facility] Other MR head/brain wo con MR/MR head/brain wo con [facility] Other MR head/brain wo con IMPRESSION: Nor [employer] Other MR head/brain wo con MINIMAL NONSPECIFIC WHITE MATTER CHANGE, DESCRIBED. [facility] Other MR head/brain wo con NO ACUTE INTRACRANIAL FINDINGS [facility] Other MR head/brain wo con Impression dictated by: Perla Mcnally M.D.07/30/2022 4:55 PM [facility] Other MR head/brain wo con Dictation Location: [facility] Other MR head/brain wo con Transcribed By: ANJEL 07/30/22 1655 [facility] Other MR head/brain wo con Dictated By: Perla Mcnally MD 07/30/22 1647 [facility] Other MR head/brain wo con Signed By: Thierno [employer] Other MR head/brain wo con 07/30/22 1655 N [facility] [employer] Other POINT OF CARE GLUCOSEon 06-24 Glucose [Mass/Vol] 94 mg/dL Normal 74-106 [facility] Comment on above: Performed By: #### P OCGLUC #### [facility] [address] [place], [place] [address] Dr. Alex Guy Glucose [Mass/Vol] 92 mg/dL Normal 74-106 [facility] Comment on above: Performed By: #### P OCGLUC ####[facility] [address] [place], [place] [address]WmDr. Alex Guy XR FOOT LT 2Von 07-21-2022 [...] ROXANNA NIELSEN Date: 2022-07-21 09:40 Normal [facility] Covid-19 PCR (CVDTB)on 06-23 SARS-CoV-2 (COVID-19) RNA CATALINA+probe Ql (Unsp spec) Not detected Normal NOT DETECTED [facility] Comment on above: Result Comment: This test is not yet approved or cleared by the [place] FDA. When there are no FDA-approved or cleared tests available, and other criteria are met, FDA can make tests available under an emergency access mechanism called an Emergency Use Authorization (EUA). The EUA for this test is supported by the [place] of Health and Human Service's (HHS's) declaration [...] consistent with SARS-CoV-2. Performed By: #### [facility] #### [facility] [address] [place] [address] Dr. Alex Sandhu 07-14-2022 L Specimen: [id number] Received: 07/14/22 Status: GENNY Valadez Num: [id number] Spec Type: Surgical Subm Dr: Rian Royal II, MD Tissues: A BREAST CORE NO CALCS (RT BREAST TISSUE) Procedures: HE/4, Gross/Micro L4, CALPONIN Age/ Patient Sex Location Account Attending Physician Karen Solis 52/F MAGDYUL [id number] Jose Vincent DO SPEC NUM: [id number] RECD: 07/14/22 STATUS: GENNY RHONDA NUM: [id number] LESTER: 07/14/229 [facility] DR: Rian Royal II, MD ENTERED: 07/14/[address]: DO JOE Martini TYPE: Surgical DEPT: [...] calculate Specimen: [id number] Received: 07/14/22 Status: GENNY Ramirezronda Num: [id number] Spec Type: Surgical Subm Dr: Rian Royal II, MD Tissues: A BREAST CORE NO CALCS (RT BREAST TISSUE) Procedures: PALLAVI/Apryl, Gross/Micro L4, CALPONIN Patient: Karen Solis [id number] (Continued) Specimen: [id number] Received: 07/14/22 (Continued) Signed (signatur e on file) Tenisha Banks MD 07/15/22 1623 Specimen: [id number] Received: 07/14/22 Status: GENNY Rhonda Num: [id number] Spec Type: Surgical Subm Dr: Rian Royal II, MD Tissues: A BREAST CORE NO CALCS (RT BREAST TISSUE) Procedures: HE/Apryl, Gross/Micro L4, CALPONIN Patient: Karen Solis [id number] (Continued) Specimen: [id number] Received: 07/14/22 (Continued) Microscopic Description Two glass slides with H E stained material have been examined. The microscopic findings support the above pathologic diagnosis. CPT Codes 58898 Specimen: [id number] Received: 07/14/22 Status: GENNY Valadez Num: [id number] Spec Type: Surgical Subm Dr: Rian Royal II, MD Tissues: A BREAST CORE NO CALCS (RT BREAST TISSUE) Procedures: HE/Apryl, Gross/Micro L4, CALPONIN Patient: Karen Solis [id number] (Continued) Signed (signatur e on file) Tenisha Banks MD 07/15/22 1623 Normal [facility] US breast ndl core biopsy RT on 07-14-2022 US breast ndl core biopsy RT [facility] [address] Mammography Report Signed with Addenda Patient: Karen Solis MR#: [id number] 01 : 1970 Acct:[id number] Age/Sex: 52 / F ADM Date: 07/14/22 Loc: [facility] Room: Type: [facility] Attending Dr: Jose Vincent DO Copies to: DO Christin Martini DO Ordering Provider: Jose Vincent DO Date of Service: 07/14/22 US/US breast ndl core biopsy RT: BREAST LESION ([id number]) MM/MM post biopsy RT w/CAD: POST U/S BX WITH CLIP ADDENDUM 1 Final pathology: Benign fibrofatty breast tissue Negative for atypia or malignancy. Recommendation: Follow-up with diagnostic right breast mammogram in 6 months is recommended. Impression dictated by: Rian Royal M.D.07/16/2022 7:40 AM Dictation Location: [facility] Addendum Dictated By: Rian Royal II, MD [...] of the right breast was performed by distribution engineering technologist as well as myself. At the [...] 11:58 AM Dictation Location: [facility] Transcribed By: ANJEL 07/14/22 1158 Dictated By: Rian Royal II, MD 07/14/22 1154 Signed By: 07/14/22 1158 [facility] PROF CHEM 8 (BAS METB)on Anion gap [Moles/Vol] 9.3 mmol/L Normal [facility] Comment on above: Performed By: #### B MP ####[facility] [address] [place] [address]Dr. Alex Guy Calcium [Mass/Vol] 9.5 mg/dL Normal 8.5-10.1 [facility] Comment on above: Performed By: #### B MP ####[facility] [address] [place] [id number]. Alex Guy Chloride [Moles/Vol] 104 mmol/L Normal 98-107 [facility] Comment on above: Performed By: #### B MP ####[facility] [address] [place] [id number]. Alex Guy CO2 [Moles/Vol] 32.4 mmol/L Critically high 21.0-32.0 [facility] Comment on above: Performed By: #### B MP ####[facility] [address] [place] [address]Dr. Alex Guy Creatinine [Mass/Vol] 0.82 mg/dL Normal 0.55-1.02 [facility] Comment on above: Performed By: #### B MP ####[facility] [address] [place] [address]Dr. Alex Guy EGFR-AF BURKINAN >60 Normal >=[address] [facility] Comment on above: Performed By: #### B MP ####[facility] [address] [place] [id number]. Alex Guy EGFR-NON AF BURKINAN >60 Normal >=60 [facility] Comment on above: Performed By: #### B MP ####[facility] [address] [place], [place] [address]Dr. Alex Guy Glucose [Mass/Vol] 89 mg/dL Normal 74-106 [facility] Comment on above: Performed By: #### B MP ####[facility] [address] [place], [place] [address]Dr. Alex Guy Potassium [Moles/Vol] 4.7 mmol/L Normal 3.5-5.1 [facility] Comment on above: Performed By: #### B MP ####[facility] [address] [place], [place] [address]Dr. Alex Guy Sodium [Moles/Vol] 141 mmol/L Normal 136-145 [facility] Comment on above: Performed By: #### B MP ####[facility] [address] [place], [place] [address]Dr. Alex Guy Urea nitrogen [Mass/Vol] 7.0 mg/dL Normal 7.0-18.0 [facility] Comment on above: Performed By: #### B MP ####[facility] [address] [place] [address]Dr. Alex Guy Urea nitrogen/Creatinine [Mass ratio] 8.5 mg/mg Normal [facility] Comment on above: Performed By: #### B MP ####[facility] [address] [place], [place] [address]. Alex Guy CT FOOT LT WO CONon [...] STERLING THOMAS Date: 2022-07-08 07:21 Normal [facility] US breast RT limitedon 07-08 US breast RT limited [facility] Main [place] [address] [place] [address] Mammography Report Signed Patient: Karen Solis MR#: [id number] : 1970 Acct:[id number] Age/Sex: 52 / F ADM Date: 07/08/22 Loc: [place] Room: Type: [facility] Attending Dr: Christin Grullon DO Copies to: Christin Grullon DO Ordering Provider: Christin Grullon DO Date of Service: 07/08/22 MM/MM diagnostic mammo RT w/CAD: Abnormal mammogram of right breast ([id number]) US/US breast RT limited: Abnormal mammogram of [...] Perla Mcnally M.D.07/08/2022 4:04 PM Dictation Location: [facility] Transcribed By: ANJEL 07/08/22 1604 Dictated By: Perla Mcnally MD 07/08/22 1442 Signed By: 07/08/22 1604 Normal [facility] US breast RT limited [facility] [employer] Other US breast RT limited [facility] Main [place] [facility] [employer] Other US breast RT limited [address] [place] [address] [facility] Other [place] [address] [facility] Other US breast RT limited Mammography Report [facility] Other US breast RT limited Signed [facility] [employer] Other US breast RT limited Patient: Karen Solis MR#: [id number] [place] [employer] Other US breast RT limited 01 [facility] [employer] Other US breast RT limited : 1970 Acct:[id number] [facility] Other US breast RT limited Age/Sex: 52 / F ADM Date: 07/08/22 [facility] Other US breast RT limited Loc: [place] Room: Type: [facility] Other US breast RT limited Attending Dr: Christin Grullon DO [facility] Other US breast RT limited Copies to: Christin Grullon DO [facility] Other US breast RT limited Ordering Provider: Christin Grullon DO [facility] Other US breast RT limited Date of Service: 07/08/22 [facility] Other US breast RT limited MM/MM diagnostic mammo RT w/CAD: Abnormal mammogram of right breast [facility] Other breast RT limited ([id number]) US/US breast RT limited: Abnormal mammogram of right breast [facility] Other US breast RT limited CLINICAL DATA: Follow-up right breast asymmetry. [facility] Other US breast RT limited RIGHT DIAGNOSTIC MAMMOGRAMS - FULL FIELD DIGITAL WITH TOMOSYNTHESIS AND CAD [facility] Other US breast RT limited Tomosynthesis spot compression true lateral, craniocaudal and mediolateral oblique views of the [facility] Other US breast RT limited right breast were obtained using low-dose digital technique. Comparison is made to the prior study [facility] Other US breast RT limited from June 19, 2022. This examination was reviewed with the aid of CAD. [facility] Other US breast RT limited There are scattered fibroglandular densities. There is still subtle, ill-defined asymmetry at the [facility] Other US breast RT limited central, slightly inferior breast on today's views. There are no other suspicious masses, typically [facility] Other US breast RT limited malignant calcifications or architectural distortion. [facility] Other US breast RT limited LIMITED RIGHT BREAST ULTRASOUND [facility] Other US breast RT limited the 4 to 5:00 position in the retroareolar region, there is a subtle hypoechoic area which has [facility] Other US breast RT limited slightly irregular margination. It measures approximately 3 x 3 x 4 mm in size. This might correlate [facility] Other US breast RT limited with the mammographic asymmetry. At the 6 to 7:00 position, 4 cm from the nipple there is a possible [facility] Other US breast RT limited subtle 3 x 2 x 4 mm hypoechoic nodular area within a band of tissue extending from middle depth [facility] Other US breast RT limited toward the chest wall. There are multiple adjacent vessels. If real, this is probably incidental. [facility] Other US breast RT limited MM/MM diagnostic mammo RT w/CAD [facility] Other US breast RT limited IMPRESSION: Nor [employer] Other US breast RT limited PERSISTENT SUBTLE ASYMMETRY WITH TINY INDETERMINANT HYPODENSITY ON ULTRASOUND. FINDINGS WERE [facility] Other US breast RT limited DISCUSSED WITH THE PATIENT WHO WOULD PREFER ULTRASOUND-GUIDED BIOPSY OVER OBSERVATION. [facility] Other US breast RT limited SECOND POTENTIAL INCIDENTAL TINY HYPODENSITY AT THE LOWER OUTER QUADRANT. ULTRASOUND FOLLOW-UP IN 6 [facility] Other US breast RT limited MONTHS IS SUGGESTED. [facility] Other US breast RT limited RESULT CODE: 4a [facility] Other US breast RT limited Suspicious Abnormality - Biopsy Low Suspicion [facility] Other US breast RT limited DENSITY CODE: 2 (approximately 25-50% glandular) [facility] Other US breast RT limited FOLLOW UP: BIO [facility] Other US breast RT limited The false-negative rate of mammography is approximately 10-percent. [facility] Other US breast RT limited Management of a palpable abnormality must be based on clinical grounds. [facility] Other US breast RT limited Patient was entered into a reminder system with a target due date for the next mammogram. [facility] Other US breast RT limited Impression dictated by: Perla Mcnally M.D.07/08/2022 4:04 PM [facility] Other US breast RT limited Dictation Location: [facility] Other US breast RT limited Transcribed By: ANJEL 07/08/22 1604 [facility] Other US breast RT limited Dictated By: Peral Mcnally MD 07/08/22 1442 [facility] Other US breast RT limited Signed By: [employer] Other US breast RT limited 07/08/22 1604 N [employer] Other MM screening mammo BI w/CADo n 06-30-2022 MM screening mammo BI w/CAD [facility] [place] [address] Mammography Report Signed Patient: Karen Solis MR#: [id number] 01 : 1970 Acct:[id number] Age/Sex: 52 / F ADM Date: 06/19/22 Loc: [place] Room: Type: [facility] Attending Dr: Christin Grullon DO Copies [...] Hannah Jr., D.O.06/30/2022 10:03 AM Dictation Location: [facility] Transcribed By: [facility] 06/30/22 1003 Dictated By: Jeff Hannah Jr, DO 06/30/22 1001 Signed By: 06/30/22 1003 [facility] Albumin [Mass/volume] in Ser um or PlasmaOrdered By: Christin Grullon on 05-19-2022 Albumin [Mass/Vol] 4.6 g/dL 3.2-5.5 [facility] C reactive protein [Mass/vol ume] in Serum or PlasmaOrdered By: Christin Grullon on 05-19-2022 CRP [Mass/Vol] 0.5 mg/dL 0.0-1.0 [facility] Creatinine and Glomerular fi ltration rate.predicted panel (S/P/Bld)Ordered By: Christin Grullon on 05-19-2022 Creatinine [Mass/Vol] 0.85 mg/dL 0.44-1.03 [facility] Erythrocyte distribution wid th Auto (RBC) [Ratio]Ordered By: Christin Grullon on 05-19-2022 Erythrocyte distribution width (RBC) [Ratio] 13.6 % 11.9-15.3 [facility] Erythrocyte sedimentation ra te by Photometric methodOrdered By: Christin Grullon on 05-19-2022 ESR Photometric method (Bld) [Velocity] 24 mm/hr 0-29 [facility] Estimated glomerular filtrat ion rate (GFR) non- AmericanOrdered By: Christin Grullon on 05-19-2022 GFR/1.73 sq M.predicted among non-blacks MDRD (S/P/Bld) [Vol rate/Area] > 60 mL/Min [facility] Globulin Calc (S) [Mass/Vol] Ordered By: Christin Grullon on 05-19-2022 Globulin (S) [Mass/Vol] 2.5 g/dL [facility] Hematocrit Auto (Bld) [Volum e fraction]Ordered By: Christin Grullon on 05-19-2022 Hematocrit (Bld) [Volume fraction] 42.6 % 34.0-46.4 [facility] Hemoglobin [Mass/volume] in BloodOrdered By: Christin Grullon on 05-19-2022 Hemoglobin (Bld) [Mass/Vol] 14.1 g/dL 11.8-15.4 [facility] MCH Auto (RBC) [Entitic mass ]Ordered By: Christin Grullon on 05-19-2022 MCH (RBC) [Entitic mass] 29.5 pg 24.7-34.3 [facility] MCHC Auto (RBC) [Mass/Vol]Or dered By: Christin Grullon on 05-19-2022 MCHC (RBC) [Mass/Vol] 33.0 g/dL 32.0-35.0 [facility] MCV Auto (RBC) [Entitic vol] Ordered By: Christin Grullon on 05-19-2022 MCV (RBC) [Entitic vol] 89.3 fL 80-100 [facility] No Panel InformationOrdered By: Christin Grullon on 05-19-2022 Estimated GFR () > 60 mL/Min [facility] Comment on above: GFR estimated refere nce range: According to KDOQI guidelines, <60 ml/min/1.73m2 is sufficient to diagnose a patient with chronic kidney disease. Pharmacy Creatinine Clearance (Chem N/A [facility] Platelet mean volume Auto (B ld) [Entitic vol]Ordered By: Christin Grullon on 05-19-2022 Platelet mean volume (Bld) [Entitic vol] 8.5 fL 6.3-10.7 [facility] Platelets Auto (Bld) [#/Vol] Ordered By: Christin Grullon on 05-19-2022 Platelets (Bld) [#/Vol] 388 10*3/uL 150-450 [facility] Protein [Mass/volume] in Ser um or PlasmaOrdered By: Christin Grullon on 05-19-2022 Protein [Mass/Vol] 7.1 g/dL 6.1-7.9 [facility] RBC Auto (Bld) [#/Vol]Ordere d By: Christin Grullon on 05-19-2022 RBC (Bld) [#/Vol] 4.77 10*6/uL 3.60-5.00 [facility] Serum or plasma alanine martinez otransferase measurement without P-5'-P (enzymatic activiOrdered By: Christin Grullon on 05-19-2022 ALT No additional P-5'-P [Catalytic activity/Vol] 9 U/L 10-60 [facility] Serum or plasma albumin/glob ulin mass ratioOrdered By: Christin Grullon on 05-19-2022 Albumin/Globulin [Mass ratio] 1.8 {ratio} [facility] Serum or plasma alkaline cooper sphatase measurement (enzymatic activity/volume)Ordered By: Christin Grullon on 05-19-2022 ALP [Catalytic activity/Vol] 98 U/L 32-92 [facility] Serum or plasma anion gap de terminationOrdered By: Christin Grullon on 05-19-2022 Anion gap [Moles/Vol] 13.8 mmol/L 6.0-15.[address] [facility] Serum or plasma aspartate am inotransferase measurement (enzymatic activity/volume)Ordered By: Christin Grullon on 05-19-2022 AST [Catalytic activity/Vol] 16 U/L 10-42 [facility] Serum or plasma calcium abhijit urement (mass/volume)Ordered By: Christin Grullon on 05-19-2022 Calcium [Mass/Vol] 9.9 mg/dL 8.2-10.2 [facility] Serum or plasma chloride brandon surement (moles/volume)Ordered By: Christin Grullon on 05-19-2022 Chloride [Moles/Vol] 101 mmol/L 95-114 [facility] Serum or plasma cyclic adeno sine monophosphate measurement (moles/volume)Ordered By: Christin Grullon on 05-19-2022 Adenosine monophosphate.cyclic [Moles/Vol] 4 units 0-19 [facility] Comment on above: Negative <20 Weak po sitive 20 - 39 Moderate positive 40 - 59 Strong positive >59Performed at: - [facility] [address] [id number] Director: Lena Evans MD, Phone: [phone] Serum or plasma glucose abhijit urement (mass/volume)Ordered By: Christin Grullon on 05-19-2022 Glucose [Mass/Vol] 81 mg/dL 70-100 [facility] Comment on above: ADA recommended refe rence rangeRandom Glucose Reference Range is dependent on time and content of last meal. Glucose of more than 200 mg/dL in a nonstressed, ambulatory subject supports the diagnosis of Diabetes Mellitus. Serum or plasma potassium me asurement (moles/volume)Ordered By: Christin Grullon on 05-19-2022 Potassium [Moles/Vol] 4.6 mmol/L 3.5-5.1 [facility] Serum or plasma rheumatoid f actor measurement (units/volume)Ordered By: Christin Grullon on 05-19-2022 Rheumatoid factor Qn [IU]/mL <14.0 [facility] Comment on above: Performed at: [facility] Abigail metzger [address] [id number] Director: Primitivo Raygoza PhD, Phone: [phone] Serum or plasma sodium measu rement (moles/volume)Ordered By: Christin Grullon on 05-19-2022 Sodium [Moles/Vol] 138 mmol/L 136-146 [facility] Serum or plasma total biliru bin measurement (mass/volume)Ordered By: Christin Grullon on 05-19-2022 Bilirubin [Mass/Vol] 0.4 mg/dL 0.3-1.2 [facility] Serum or plasma total carbon dioxide measurement (moles/volume)Ordered By: Christin Grullon on 05-19-2022 CO2 [Moles/Vol] 27.8 mmol/L 22.0-30.0 [facility] Serum or plasma urea nitroge n measurement (mass/volume)Ordered By: Christin Grullon on 05-19-2022 Urea nitrogen [Mass/Vol] 8 mg/dL 9-23 [facility] WBC Auto (Bld) [#/Vol]Ordere d By: Christin Grullon on 05-19-2022 WBC (Bld) [#/Vol] 7.1 10*3/uL 3.8-11.6 [facility] XR knee standing BIon 2021 XR knee standing BI [facility] [employer] Other XR knee standing BI [facility] [employer] Other XR knee standing BI [address] [facility] [employer] Other [place] [address] [facility] [employer] Other XR knee standing BI XRay Report [employer] Other XR knee standing BI Signed [facility] Other XR knee standing BI Patient: Karen Solis MR#: [id number] [place] [employer] Other XR knee standing BI 01 [facility] Other XR knee standing BI : 1970 Acct:[id number] [facility] Other XR knee standing BI Age/Sex: 52 / F ADM Date: 05/19/22 [facility] Other XR knee standing BI Loc: XDSHC Room: [facility] Other XR knee standing BI Attending Dr: Christin Grullon DO [facility] Other XR knee standing BI Copies to: Christin Grullon DO [facility] Other XR knee standing BI Ordering Provider: Christin Grullon DO [facility] Other XR knee standing BI Date of Service: 05/19/22 [facility] Other XR knee standing BI XR/XR shoulder LT min 2V*: Pain in joint, multiple sites;Pain in left [facility] Other XR knee standing BI shoulder [facility] Other XR knee standing BI ([id number]) XR/XR knee standing BI: Pain in joint, multiple sites;Pain in right knee;Pain in lef [facility] Other XR knee standing BI LEFT SHOULDER - - 3 views bilateral knee series, one view each [facility] Other XR knee standing BI CLINICAL HISTORY: Frozen left shoulder for 4 months. Bilateral knee pain left greater than right [facility] Other XR knee standing BI with standing. N [facility] Other XR knee standing BI COMPARISON: Knee series 01/15/2021 [facility] Other XR knee standing BI FINDINGS: [facility] Other XR knee standing BI Left shoulder: No acute bony process or significant degenerative change. [facility] Other XR knee standing BI Knee series: No acute bony process or significant degenerative change. [facility] Other XR knee standing BI XR/XR shoulder LT min 2V* [facility] Other XR knee standing BI IMPRESSION: [employer] Other XR knee standing BI NO ACUTE BONY PROCESS OR SIGNIFICANT DEGENERATIVE CHANGE INVOLVING THE KNEES OR LEFT SHOULDER. [facility] Other XR knee standing BI Impression dictated by: Jeff Hannah Jr., D.OGanga05/19/2022 3:54 PM [facility] Other XR knee standing BI Dictation Location: [place] [address] [facility] Other XR knee standing BI Transcribed By: PWS 05/19/22 [facility] Other XR knee standing BI Dictated By: Jeff Hannah Jr, DO 05/19/22 [facility] Other XR knee standing BI Signed By: [facility] Other XR knee standing BI 05/19/22 1554 No rt [employer] Other POINT OF CARE GLUCOSEon 01-21 Glucose [Mass/Vol] 126 mg/dL Critically high 74-106 T [facility] Comment on above: Performed By: #### P OCGLUC #### [facility] [address] [address] [address] Alex Guy Covid-19 PCR (CVDTBH)on 01-21 SARS-CoV-2 (COVID-19) RNA CATALINA+probe Ql (Unsp spec) Not detected Normal NOT DETECTED [facility] Comment on above: Result Comment: This test is not yet approved or cleared by the [place] FDA. When there are no FDA-approved or cleared tests available, and other criteria are met, FDA can make tests available under an emergency access mechanism called an Emergency Use Authorization (EUA). The EUA for this test is supported by the Otolaryngology Nurse of Health and Human Service's (HHS's) declaration [...] consistent with SARS-CoV-2. Performed By: #### [facility] #### [facility] [address] [place], [place] [address] Dr. Alex Guy XR CHEST 2 Von [...] by: HUNG ARREDONDO Date: 2022-02-04 07:[address] [facility] PROF CHEM 8 (BAS METB)on Anion gap [Moles/Vol] 10.7 mmol/L Normal [facility] Comment on above: Performed By: #### B MP ####[facility] [address] [place] [address] [id number] Guy Calcium [Mass/Vol] 9.3 mg/dL Normal 8.5-10.1 [facility] Comment on above: Performed By: #### B MP ####[facility] [address] [place] [address]DrGanga Guy Chloride [Moles/Vol] 101 mmol/L Normal 98-107 [facility] Comment on above: Performed By: #### B MP ####[facility] [address] [place] [id number]. Alex Guy CO2 [Moles/Vol] 30.3 mmol/L Normal 21.0-32.[address] [facility] Comment on above: Performed By: #### B MP ####[facility] [address] [place] [address] [address]Dr. Alex Brooks Creatinine [Mass/Vol] 0.91 mg/dL Normal 0.55-1.02 [facility] Comment on above: Performed By: #### B MP ####[facility] [address] [place] [address]Dr. Alex Brooks EGFR-AF BURKINAN >60 Normal >=[address] [facility] Comment on above: Performed By: #### B MP ####[facility] [address] [place], [place] [address]Dr. Alizelarry Brooks EGFR-NON AF BURKINAN >60 Normal >=60 [facility] Comment on above: Performed By: #### B MP ####[facility] [address] [place], [place] [address]Dr. Alex Brooks Glucose [Mass/Vol] 84 mg/dL Normal 74-106 [facility] Comment on above: Performed By: #### B MP ####[facility] [address] [place], [place] [address]Dr. Alizelarry Brooks Potassium [Moles/Vol] 5.0 mmol/L Normal 3.5-5.1 [facility] Comment on above: Performed By: #### B MP ####[facility] [address] [place], [place] [address]Dr. Alex Guy Sodium [Moles/Vol] 137 mmol/L Normal 136-145 [facility] Comment on above: Performed By: #### B MP ####[facility] [address] [place], [place] [address]Dr. Alex Guy Urea nitrogen [Mass/Vol] 8.0 mg/dL Normal 7.0-18.0 [facility] Comment on above: Performed By: #### B MP ####[facility] [address] [place], [place] [address]Dr. Alex Guy Urea nitrogen/Creatinine [Mass ratio] 8.8 mg/mg Normal [facility] Comment on above: Performed By: #### B ####[facility] [address] [place], [place] [address] FOOT LT WO CONon 12-28-19 [...] by: HUNG ARREDONDO Date: 2021-12-27 18:[address] [facility] PROGRESSon 10-19-2018 Protein mass conc HNO ID: [id number] Author: Lian Aparicio Service: ? Author Type: Physician Type: Progress Notes Filed: 10/19/2018 9:59 PM Note Text: [facility] - General Progress Note KAREN SOLIS : 1970 AGE: 48 SEX: F CSN: [id number] [facility] LOCATION[place] [facility] ATTENDING PHYSICIAN: Bill Patten M.D. DATE OF [...] Hb A1c. Discussed with Inpatient Psych Unit. Beal Alzoubi, M.D. Internal Medicine JOYNER:[id number] [facility] RPRon 08-31-2018 Reagin Ab RPR Ql (S) Nonreactive Normal Nonreactive As [facility] Comment on above: Performed By: #### U A, PT, CBCDIF, GBCHEM, GBTSH, MG, RPR #### [facility] [address] [place] [address] CBCDIFon 08-28-2018 Abs Baso 0.06 k/uL Normal 0-0.2 [facility] Comment on above: Performed By: #### U A, PT, CBCDIF, GBCHEM, GBTSH, MG, RPR #### [facility] Clinical Lab [address] [place] [address] Abs Madera 1.08 k/uL High 0-0.8 [facility] Comment on above: Performed By: #### U A, PT, CBCDIF, GBCHEM, GBTSH, MG, RPR #### [facility] Lab [address] [place] [address] Abs Neut 4.76 k/uL Normal 1.8-7.7 [facility] Comment on above: Performed By: #### U A, PT, CBCDIF, GBCHEM, GBTSH, MG, RPR #### [facility] Clinical Lab [address] [place], [place] [id number] Basophils/100 WBC (Bld) 0.8 % Normal 0-1 A [facility] Comment on above: Performed By: #### U A, PT, CBCDIF, GBCHEM, GBTSH, MG, RPR #### [facility] Clinical Lab [address] [place] [address] Eosinophils #/vol (Bld) 0.25 10*3/uL Normal 0-0.4 [facility] Comment on above: Performed By: #### U A, PT, CBCDIF, GBCHEM, GBTSH, MG, RPR #### [facility] Lab [address] [place] [address] Eosinophils/100 WBC (Bld) 3.3 % Normal 0-4 [facility] Comment on above: Performed By: #### U A, PT, CBCDIF, GBCHEM, GBTSH, MG, RPR #### [facility] [address] [place] [address] Immature Gran 0.30 % Normal 0-1.9 [facility] Comment on above: Performed By: #### U A, PT, CBCDIF, GBCHEM, GBTSH, MG, RPR #### [facility] Lab [address] [place] [address] Lymphocytes #/vol (Bld) 1.50 10*3/uL Normal 1.0-4.0 [facility] Comment on above: Performed By: #### U A, PT, CBCDIF, GBCHEM, GBTSH, MG, RPR #### [facility] Lab [address] [place] [address] Lymphocytes/100 WBC (Bld) 19.6 % Low 22-44 [facility] Comment on above: Performed By: #### U A, PT, CBCDIF, GBCHEM, GBTSH, MG, RPR #### [facility] [address] [place] [address] Monocytes/100 WBC (Bld) 14.1 % High 4-12 [facility] Comment on above: Performed By: #### U A, PT, CBCDIF, GBCHEM, GBTSH, MG, RPR #### [facility] [address] [place] [address] Neutrophils/100 WBC (Bld) 61.9 % Normal 40-70 [facility] Comment on above: Performed By: #### U A, PT, CBCDIF, GBCHEM, GBTSH, MG, RPR #### [facility] [address] [place] [address] Erythrocyte distribution width Ratio (RBC) 13.7 % Normal 11.5-14.5 [facility] Comment on above: Performed By: #### U A, PT, CBCDIF, GBCHEM, GBTSH, MG, RPR #### [facility] [address] [place] [address] Hematocrit Volume Fraction (Bld) 45.9 % Normal 36.0-46.0 [facility] Comment on above: Performed By: #### U A, PT, CBCDIF, GBCHEM, GBTSH, MG, RPR #### [facility] [address] [place] [address] Hemoglobin mass conc (Bld) 15.0 g/dL Normal 12.0-16.0 [facility] Comment on above: Performed By: #### U A, PT, CBCDIF, GBCHEM, GBTSH, MG, RPR #### [facility] [address] [place] [address] MCH Entitic mass (RBC) 31.5 pG Normal 26-34 [facility] Comment on above: Performed By: #### U A, PT, CBCDIF, GBCHEM, GBTSH, MG, RPR #### [facility] [address] [place] [address] MCHC mass conc (RBC) 32.7 g/dL Normal 31-37 [facility] Comment on above: Performed By: #### U A, PT, CBCDIF, GBCHEM, GBTSH, MG, RPR #### [facility] [address] [place] [address] MCV Entitic volume (RBC) 96.4 fL Normal 80-100 [facility] Comment on above: Performed By: #### U A, PT, CBCDIF, GBCHEM, GBTSH, MG, RPR #### [facility] [address] [place] [address] NRBCs 0 /100 WBC Normal 0-0.9 [facility] Comment on above: Performed By: #### U A, PT, CBCDIF, GBCHEM, GBTSH, MG, RPR #### [facility] [address] [place] [address] Platelets #/vol (Bld) 248 10*3/uL Normal 150-450 [facility] Comment on above: Performed By: #### U A, PT, CBCDIF, GBCHEM, GBTSH, MG, RPR #### [facility] [address] [facility] [place] [address] RBC #/vol (Bld) 4.76 10*6/uL Normal 4.00-5.20 [facility] Comment on above: Performed By: #### U A, PT, CBCDIF, GBCHEM, GBTSH, MG, RPR #### [facility] [address] [place] [address] WBC #/vol (Bld) 7.67 10*3/uL Normal 4.5-11.0 [facility] Comment on above: Performed By: #### U A, PT, CBCDIF, GBCHEM, GBTSH, MG, RPR #### [facility] [address] [place], [place] [id number] Dayanna Rich 2018 Albumin mass conc 3.9 g/dL Normal 3.5-5.0 [facility] Comment on above: Performed By: #### U A, PT, CBCDIF, GBCHEM, GBTSH, MG, RPR #### [facility] [address] [place] [address] Alkaline Phos 112 U/L Normal 38-125 [facility] Comment on above: Performed By: #### U A, PT, CBCDIF, GBCHEM, GBTSH, MG, RPR #### [facility] [address] [place] [address] ALT enzyme act/vol 42 U/L Normal 9-52 [facility] Comment on above: Performed By: #### U A, PT, CBCDIF, GBCHEM, GBTSH, MG, RPR #### [facility] [address] [facility] [place] [address] Amylase enzyme act/vol 44 U/L Normal 30-110 [facility] Comment on above: Performed By: #### U A, PT, CBCDIF, GBCHEM, GBTSH, MG, RPR #### [facility] [address] [facility] [place] [address] Anion gap molar conc 12 mmol/L Normal 0-15 [facility] Comment on above: Performed By: #### U A, PT, CBCDIF, GBCHEM, GBTSH, MG, RPR #### [facility] [address] [place] [address] AST enzyme act/vol 60 U/L High 17-59 [facility] Comment on above: Performed By: #### U A, PT, CBCDIF, GBCHEM, GBTSH, MG, RPR #### [facility] [address] [place] [address] Bilirubin Ql (U) 0.5 mg/dL Normal 0.2-1.3 [facility] Comment on above: Performed By: #### U A, PT, CBCDIF, GBCHEM, GBTSH, MG, RPR #### [facility] [address] [place] [address] Calcium mass conc 9.4 mg/dL Normal 8.4-10.2 [facility] Comment on above: Performed By: #### U A, PT, CBCDIF, GBCHEM, GBTSH, MG, RPR #### [facility] [address] [place] [address] Chloride molar conc 104 mmol/L Normal 98-107 [facility] Comment on above: Performed By: #### U A, PT, CBCDIF, GBCHEM, GBTSH, MG, RPR #### [facility] Lab [address] [place] [address] Cholesterol mass conc 165 mg/dL Normal 100-199 [facility] Comment on above: Performed By: #### U A, PT, CBCDIF, GBCHEM, GBTSH, MG, RPR #### [facility] Lab [address] [place] [address] CO2 molar conc 28 mmol/L Normal 22-30 [facility] Comment on above: Performed By: #### U A, PT, CBCDIF, GBCHEM, GBTSH, MG, RPR #### [facility] Lab [address] [place] [address] Creatinine mass conc 0.87 mg/dL Normal 0.52-1.04 [facility] [place] [facility] Comment on above: Performed By: #### U A, PT, CBCDIF, GBCHEM, GBTSH, MG, RPR #### [facility] Clinical Lab [address] [place], [place] [id number] eGFR Amer >60 Normal >60 [facility] Comment on above: Result Comment: MDRD calculation used for eGFR results. Performed By: #### U A, PT, CBCDIF, GBCHEM, GBTSH, MG, RPR #### [facility] Clinical Lab [address] [place], [place] [id number] eGFR non Am >60 Normal >60 [facility] Comment on above: Performed By: #### U A, PT, CBCDIF, GBCHEM, GBTSH, MG, RPR #### [facility] Lab [address] [place] [address] Gamma glutamyl transferase enzyme act/vol 79 U/L High 12-43 [facility] Comment on above: Performed By: #### U A, PT, CBCDIF, GBCHEM, GBTSH, MG, RPR #### [facility] [address] [place] [address] Glucose mass conc 75 mg/dL Normal 74-106 [facility] Comment on above: Performed By: #### U A, PT, CBCDIF, GBCHEM, GBTSH, MG, RPR #### [facility] [address] [place] [address] LDH 496 U/L Normal 318-618 [facility] Comment on above: Performed By: #### U A, PT, CBCDIF, GBCHEM, GBTSH, MG, RPR #### [facility] [address] [place] [address] Phosphate mass conc 4.7 mg/dL High 2.5-4.5 [facility] Comment on above: Performed By: #### U A, PT, CBCDIF, GBCHEM, GBTSH, MG, RPR #### [facility] [address] [place] [address] Potassium molar conc 4.2 mmol/L Normal 3.5-5.1 [facility] [place] [facility] Comment on above: Performed By: #### U A, PT, CBCDIF, GBCHEM, GBTSH, MG, RPR #### [facility] [address] [facility] [place] [address] Protein mass conc 6.9 g/dL Normal 6.2-8.2 [facility] Comment on above: Performed By: #### U A, PT, CBCDIF, GBCHEM, GBTSH, MG, RPR #### [facility] [address] [place] [address] Sodium molar conc 140 mmol/L Normal 137-145 [facility] Comment on above: Performed By: #### U A, PT, CBCDIF, GBCHEM, GBTSH, MG, RPR #### [facility] [address] [place] [address] Triglyceride mass conc 123 mg/dL Normal 35-150 [facility] Comment on above: Performed By: #### U A, PT, CBCDIF, GBCHEM, GBTSH, MG, RPR #### [facility] [address] [place], [place] [id number] Urate mass conc 2.5 mg/dL Normal 2.5-6.2 [facility] Comment on above: Performed By: #### U A, PT, CBCDIF, GBCHEM, GBTSH, MG, RPR #### [facility] [address] [place] [address] Urea nitrogen mass conc 9 mg/dL Normal 7-17 A [facility] Comment on above: Performed By: #### U A, PT, CBCDIF, GBCHEM, GBTSH, MG, RPR #### [facility] [address] [place] [id number] [facility] TSHon 08-28-2018 Thyrotropin Qn 6.750 uU/mL High 0.465-4.680 [facility] Comment on above: Performed By: #### U A, PT, CBCDIF, GBCHEM, GBTSH, MG, RPR #### [facility] [address] [place] [id number] Magnesiumon 08-28-2018 Magnesium mass conc 2.4 mg/dL High 1.3-2.3 [facility] Comment on above: Performed By: #### U A, PT, CBCDIF, GBCHEM, GBTSH, MG, RPR #### [facility] [address] [place] [id number] Protimeon 08-28-2018 Prothrombin time (PT) Coag time (PPP) 0.9 s Normal 0.6-1.1 [facility] Comment on above: Result Comment: The [...] GBTSH, MG, RPR #### [facility] [address] [place] [id number] Prothrombin time (PT) Coag time (PPP) 12.2 s Normal 11.8-14.1 [facility] Comment on above: Performed By: #### U A, PT, CBCDIF, GBCHEM, GBTSH, MG, RPR #### [facility] [address] [place] [id number] T3 Totalon 08-28-2018 T3 Total 1.0 ng/mL Normal 0.970-1.69 [facility] Comment on above: Performed By: #### T 3TOT, T3U, T4 #### [facility] [address] [place] [id number] T3 Uptakeon 08-28-2018 T3 Uptake 29.7 % Normal 23.5-40.5 [facility] Comment on above: Performed By: #### T 3TOT, T3U, T4 #### [facility] [address] [place], [place] [id number] T4on 08-28-2018 T4 4.4 ug/dL Low 5.5-11.0 [facility] Comment on above: Performed By: #### T 3TOT, T3U, T4 #### [facility] [address] [place] [address] Urinalysison 08-28-2018 Bilirubin mass conc Negative Normal Negative [facility] Comment on above: Performed By: #### U A, PT, CBCDIF, GBCHEM, GBTSH, MG, RPR #### [facility] [address] [place] [address] Clarity Nom (U) Clear Normal Clear [facility] Comment on above: Performed By: #### U A, PT, CBCDIF, GBCHEM, GBTSH, MG, RPR #### [facility] Lab [address] [place] [address] Color Nom (U) Straw Critically abnormal Yellow [facility] Comment on above: Performed By: #### U A, PT, CBCDIF, GBCHEM, GBTSH, MG, RPR #### [facility] Clinical Lab [address] [place] [address] Comments MICROSCOPIC ANALYSIS NOT DONE ON URINES WITH NEGATIVE BIOCHEMICAL TESTS Normal [facility] Comment on above: Performed By: #### U A, PT, CBCDIF, GBCHEM, GBTSH, MG, RPR #### [facility] Clinical Lab [address] [place] [address] Glucose mass conc Negative Normal Negative [facility] Comment on above: Performed By: #### U A, PT, CBCDIF, GBCHEM, GBTSH, MG, RPR #### [facility] Clinical Lab [address] [place] [address] Hemoglobin/Blood Negative Normal Negative [facility] Comment on above: Performed By: #### U A, PT, CBCDIF, GBCHEM, GBTSH, MG, RPR #### [facility] Clinical Lab [address] [place] [address] Ketone Negative Normal Negative [facility] Comment on above: Performed By: #### U A, PT, CBCDIF, GBCHEM, GBTSH, MG, RPR #### [facility] Clinical Lab [address] [place] [address] Leukest Negative Normal Negative [facility] Comment on above: Performed By: #### U A, PT, CBCDIF, GBCHEM, GBTSH, MG, RPR #### [facility] Clinical [facility] [address] [place], [place] [id number] Nitrite Ql (U) Negative Normal Negative [facility] Comment on above: Performed By: #### U A, PT, CBCDIF, GBCHEM, GBTSH, MG, RPR #### [facility] [address] [place], [place] [id number] pH (U) 7.0 [pH] Normal 5-7 [facility] Comment on above: Performed By: #### U A, PT, CBCDIF, GBCHEM, GBTSH, MG, RPR #### [facility] Clinical [facility] [address] [place], [place] [id number] Protein mass conc (U) Negative Normal Negative [facility] Comment on above: Performed By: #### U A, PT, CBCDIF, GBCHEM, GBTSH, MG, RPR #### [facility] Clinical [facility] [address] [place] [address] Urine Spec [place] 1.004 Low 1.005-1.030 [facility] Comment on above: Performed By: #### U A, PT, CBCDIF, GBCHEM, GBTSH, MG, RPR #### [facility] Clinical [facility] [address] [place], [place] [id number] Urobilinogen Qn (U) <2.0 Normal 0.0-1.0 [facility] Comment on above: Performed By: #### U A, PT, CBCDIF, GBCHEM, GBTSH, MG, RPR #### [facility] Clinical [facility] [address] [place], [place] [id number] ALLIED HEALTHon 08-27-2018 ALLIED HEALTH HNO ID: [id number] Author: Yazmin (Therapist) Adriano Service: Music Therapy [...] DATE: August 27, 2018 TIME: 3:49 PM [facility] ALLIED HEALTH HNO ID: [id number] Author: Gifty De Luna (Lsw) Service: Art [...] She is relieved to be going to [facility] for residential today. She feels if she would've went home family stress and idle time would leave her to relapse. SIGNATURE: Gifty De Luna, ELOY,ATR, STERILE SUPERVISOR PATIENT NAME: Karen Solis DATE: August 27, 2018 TIME: 1:47 PM [facility] PROGRESSon 08-27-2018 Protein mass conc HNO ID: [id number] Author: Lian Aparicio Service: ? Author Type: Physician Type: Progress Notes Filed: 10/20/2018 9:46 PM Note Text: [facility] - General Progress Note KAREN SOLIS : 1970 AGE: 48 SEX: F CSN: [id number] HOSP SVC: PSYR [place] [facility] [place]ING PHYSICIAN: Bill Patten M.D. DATE OF [...] Smoking cessation. Lian Aparicio M.D. Internal Medicine JOYNER:[id number] /[id number] [facility] HEALTHon 08-26-2018 ALLIED HEALTH HNO ID: [id number] Author: Lashell (Therapist) Britton Service: Art Therapy [...] images of animals and a cabin in [place]. Pt stated that she enjoyed the presence of animals and that she has always wanted to travel to [place]. SIGNATURE: Lashell Jarquin [facility] PATIENT NAME: Karen oSlis DATE: August 26, 2018 TIME: 3:51 PM [facility] ALLIED [facility] HNO ID: [id number] Author: RASHMI Alanis Service: Recreational Therapy Author [...] DATE: August 26, 2018 TIME: 2:49 PM [facility] HNO ID: [id number] Author: Yazmin (Therapist) Adriano Service: Music Therapy [...] wrote with the group. SIGNATURE: Yazmin Oh MT-BC PATIENT NAME: Karen Solis DATE: August 26, 2018 TIME: 1:53 PM [facility] HNO ID: [id number] Author: Gifty De Luna (Lsw) Service: Art Therapy Author Type: Art Therapist Type: [facility] Health Filed: 08/26/2018 11:17 AM [...] anxious and optimistic about discharge today to [facility] for residential She values her family, dogs, health, God and happiness. She feels her family thinks she values her sobriety and strength currently. She continues to want to work on earning her families trust and respect back . SIGNATURE: Gifty De Luna, [employer] SALES REPRESENTATIVE,ATR, STERILE SUPERVISOR PATIENT NAME: Karen Solis DATE: August 26, 2018 TIME: 11:08 AM Normal [facility] CBC and Differentialon 08-26 Abs Baso 0.04 k/uL Normal <0.11 [facility] Comment on above: Performed By: #### U HCG, UAWMIC, UTOX2 #### [place] [address] Abs [place] 1.07 k/uL High <0.87 [facility] Comment on above: Performed By: #### U HCG, UAWMIC, UTOX2 #### [place] [address] Abs Neut 6.92 k/uL Normal 1.45-7.50 [facility] Comment on above: Performed By: #### U HCG, UAWMIC, UTOX2 #### [place] [address] Basophils/100 WBC (Bld) 0.4 % Normal L [facility] Comment on above: Performed By: #### U HCG, UAWMIC, UTOX2 #### [place] [address] Eosinophils #/vol (Bld) 0.19 10*3/uL Normal <0.46 [facility] Comment on above: Performed By: #### U HCG, UAWMIC, UTOX2 #### [place] [address] Eosinophils/100 WBC (Bld) 2.1 % Normal [facility] Comment on above: Performed By: #### U HCG, UAWMIC, UTOX2 #### [place] [address] Erythrocyte distribution width Ratio (RBC) 14.0 % Normal 11.5-15.0 [facility] Comment on above: Performed By: #### U HCG, UAWMIC, UTOX2 #### [place] [address] Hematocrit Volume Fraction (Bld) 41.3 % Normal 36.0-46.0 [facility] Comment on above: Performed By: #### U HCG, UAWMIC, UTOX2 #### [place] [address] Hemoglobin mass conc (Bld) 13.9 g/dL Normal 11.5-15.5 [facility] Comment on above: Performed By: #### U HCG, UAWMIC, UTOX2 #### [place] [address] Lymphocytes #/vol (Bld) 0.86 10*3/uL Low 1.00-4.00 [facility] Comment on above: Performed By: #### U HCG, UAWMIC, UTOX2 #### [place] [address] Lymphocytes/100 WBC (Bld) 9.5 % Normal [facility] Comment on above: Performed By: #### U HCG, UAWMIC, UTOX2 #### [place] [address] MCH Entitic mass (RBC) 32.3 pG Normal 26.0-34.0 [facility] Comment on above: Performed By: #### U HCG, UAWMIC, UTOX2 #### [place] [address] MCHC mass conc (RBC) 33.7 g/dL Normal 30.5-36.0 [facility] Comment on above: Performed By: #### U HCG, UAWMIC, UTOX2 #### [place] [address] MCV Entitic volume (RBC) 95.8 fL Normal 80.0-100.0 [facility] Comment on above: Performed By: #### U HCG, UAWMIC, UTOX2 #### [place] [address] Monocytes/100 WBC (Bld) 11.8 % Normal L [facility] Comment on above: Performed By: #### U HCG, UAWMIC, UTOX2 #### [place] [address] Neutrophils/100 WBC (Bld) 76.2 % Normal [facility] Comment on above: Performed By: #### U HCG, UAWMIC, UTOX2 #### [place] [address] NRBCs 0.0 /100 WBC Normal 0 [facility] Comment on above: Performed By: #### U HCG, UAWMIC, UTOX2 #### [place] [address] Platelet mean volume Entitic volume (Bld) 10.6 fL Normal 9.0-12.7 [facility] Comment on above: Performed By: #### U HCG, UAWMIC, UTOX2 #### [place] [address] Platelets #/vol (Bld) 191 10*3/uL Normal 150-400 [facility] Comment on above: Performed By: #### U HCG, UAWMIC, UTOX2 #### [place] [address] RBC #/vol (Bld) 4.31 10*6/uL Normal 3.90-5.20 [facility] Comment on above: Performed By: #### U HCG, UAWMIC, UTOX2 #### [place] [address] WBC #/vol (Bld) 9.08 10*3/uL Normal 3.70-11.00 [facility] Comment on above: Performed By: #### U HCG, UAWMIC, UTOX2 #### [place] [address] Comp Metabolic Panelon 08-26 Albumin mass conc 3.6 g/dL Low 3.9-4.9 [facility] Comment on above: Performed By: #### U HCG, UAWMIC, UTOX2 #### [place] [address] ALP enzyme act/vol 112 U/L Normal 34-[address] [facility] Comment on above: Performed By: #### U HCG, UAWMIC, UTOX2 #### [place] [address] ALT enzyme act/vol 38 U/L Normal 7-[address] [facility] Comment on above: Performed By: #### U HCG, UAWMIC, UTOX2 #### [place] [address] Anion gap molar conc 11 mmol/L Normal 9-18 [facility] Comment on above: Performed By: #### U HCG, UAWMIC, UTOX2 #### [place] [address] AST enzyme act/vol 51 U/L High 13-[address] [facility] Comment on above: Performed By: #### U HCG, UAWMIC, UTOX2 #### [place] [address] Bilirubin mass conc 0.3 mg/dL Normal 0.2-1.3 [facility] Comment on above: Performed By: #### U HCG, UAWMIC, UTOX2 #### [place] [address] Calcium mass conc 9.1 mg/dL Normal 8.5-10.2 [facility] Comment on above: Performed By: #### U HCG, UAWMIC, UTOX2 #### [place] [address] Chloride molar conc 103 mmol/L Normal 97-105 [facility] Comment on above: Performed By: #### U HCG, UAWMIC, UTOX2 #### [place] [address] CO2 molar conc 24 mmol/L Normal 22-30 [facility] Comment on above: Performed By: #### U HCG, UAWMIC, UTOX2 #### [place] [address] Creatinine mass conc 0.88 mg/dL Normal 0.58-0.96 [facility] Comment on above: Performed By: #### U HCG, UAWMIC, UTOX2 #### [place] [address] eGFR- Amer. >60 Normal >[address] [facility] Comment on above: Performed By: #### U HCG, UAWMIC, UTOX2 #### [place] [address] GFR/1.73 sq M predicted among non-blacks MDRD vol rate/area (S/P/Bld) mL/min/{1.73_m2} Normal >60 [facility] Comment on above: Result Comment: eGFR [...] By: #### U HCG, UAWMIC, UTOX2 #### [place] [address] Glucose mass conc 115 mg/dL High 74-99 [facility] Comment on above: Performed By: #### U HCG, UAWMIC, UTOX2 #### [place] [address] Potassium molar conc 4.1 mmol/L Normal 3.7-5.1 [facility] Comment on above: Performed By: #### U HCG, UAWMIC, UTOX2 #### [place] [address] Protein mass conc 5.6 g/dL Low 6.3-8.0 [facility] Comment on above: Performed By: #### U HCG, UAWMIC, UTOX2 #### [place] [address] Sodium molar conc 138 mmol/L Normal 136-144 [facility] Comment on above: Performed By: #### U HCG, UAWMIC, UTOX2 #### [place] [address] Urea nitrogen mass conc 9 mg/dL Normal 7-21 L [facility] Comment on above: Performed By: #### U HCG, UAWMIC, UTOX2 #### [place] [address] Magnesiumon 08-26-2018 Magnesium mass conc 2.4 mg/dL High 1.7-2.3 [facility] Comment on above: Performed By: #### U HCG, UAWMIC, UTOX2 #### [place] [address] PROGRESSon 08-26-2018 Protein mass conc HNO ID: [id number] Author: Lian Aparicio Service: ? Author Type: Physician Type: Progress Notes Filed: 10/20/2018 9:49 PM Note Text: [facility] - General Progress Note KAREN SOLIS : 1970 AGE: 48 SEX: F CSN: [id number] HOSP SVC: PSYR [place] [facility] [place]ING PHYSICIAN: Bill Patten M.D. DATE OF [...] Date - Chronic obstructive pulmonary disease (COPD) ([facility]) Social History Socioeconomic History Marital status: [...] edema Lian Aparicio M.D. Internal Medicine Normal [facility] Phosphoruson 08-26-2018 Phosphate mass conc 4.4 mg/dL Normal 2.7-4.8 [facility] Comment on above: Performed By: #### U HCG, UAWMIC, UTOX2 #### [facility] [address] [address] ALLIED HEALTHon 08-25-2018 ALLIED HEALTH HNO ID: [id number] Author: Katy (Therapist) Ct Service: Art Therapy [...] back of her poem. SIGNATURE: BUNNY Dean, [facility] PATIENT NAME: Karen Solis DATE: August 25, 2018 TIME: 3:45 PM [facility] HNO ID: [id number] Author: Lashell (Therapist) Britton Service: Art Therapy [...] happy she is alive. SIGNATURE: Lashell Jarquin [facility] PATIENT NAME: Karen Solis DATE: August 25, 2018 TIME: 1:38 PM [facility] HNO ID: [id number] Author: Katy (Therapist) Ct Service: Art Therapy Author Type: Therapist Type: [facility] Health Filed: 08/25/2018 11:32 AM Note Text: GROUP PROGRESS NOTE SERVICE DATE: 08/25/2018 SERVICE TIME: 09 Length (minutes): 60 Attendance: Attended 3/4 to [...] music and the groups. SIGNATURE: Katy Fofana, [facility], [facility] PATIENT NAME: Karen Solis DATE: August 25, 2018 TIME: 11:24 AM [facility] NURSING PROGon 08-25-2018 Protein mass conc HNO ID: [id number] Author: Padilla (Rn) MANI Lewis Service: Nursing Author Type: Registered Nurse Type: Nursing Progress Note Filed: 08/25/2018 6:56 AM Note Text: Nursing Progress Note Patient Name: Karen Solis Patient Location: [address]/[place] [address]* Daily Note:[id number] At beginning of shift pt observed to [...] note was completed by: Padilla Lewis RN [facility] HNO ID: [id number] Author: RASHMI Alanis Service: Recreational Therapy Author [...] DATE: August 24, 2018 TIME: 3:36 PM [facility] HNO ID: [id number] Author: Gifty De Luna (Lsw) Service: Art [...] the group. SIGNATURE: Gifty De Luna LPCATR, STERILE SUPERVISOR PATIENT NAME: Karen Solis DATE: August 24, 2018 TIME: 4:49 PM [facility] HNO ID: [id number] Author: Cathy Lauren-Adriana Corley Therapist Service: Art Therapy Author Type: [...] DATE: August 24, 2018 TIME: 2:06 PM [facility] HNO ID: [id number] Author: Gifty (Elvin) Calixto Service: Art Therapy Author Type: Art [...] IOP and meetings. SIGNATURE: Gifty De Luna, [employer] SALES REPRESENTATIVE,ATR, STERILE SUPERVISOR PATIENT NAME: Karen Solis DATE: August 24, 2018 TIME: 1:12 PM [facility] Hepatitis Remote Panelon HBsAg Negative Normal Negative [facility] Comment on above: Performed By: #### U HCG, UAWMIC, UTOX2 #### [place] [address] Hep B Core Ab,Total Negative Normal Negative [facility] Comment on above: Performed By: #### U HCG, UAWMIC, UTOX2 #### [place] [address] Hepatitis C Ab IA Negative Normal Negative [facility] Comment on above: Performed By: #### U HCG, UAWMIC, UTOX2 #### [place] [address] HepB Surface Ab,Qual Negative Normal Negative [facility] Comment on above: Result Comment: NEGA TIVE Performed By: #### U HCG, UAWMIC, UTOX2 #### [facility] [address] [place] [address] NURSING PROGon 08-24-2018 Protein mass conc HNO ID: [id number] Author: Padilla (Rn) MANI Lewis Service: Nursing Author Type: Registered Nurse Type: Nursing Progress Note Filed: 08/24/2018 7:01 AM Note Text: Nursing Progress Note Patient Name: Karen Solis Patient Location: [address]/[place] [address]* Daily Note:[id number] At beginning of shift pt observed to [...] was completed by: Padilla Lewis RN Normal [facility] PROGRESSon 08-24-2018 Protein mass conc HNO ID: [id number] Author: Lian Aparicio Service: ? Author Type: Physician Type: Progress Notes Filed: 10/17/2018 11:37 PM Note Text: [facility] - General Progress Note KAREN SOLIS : 1970 AGE: 48 SEX: F CSN: [id number] [facility]: [facility] [place]ATION[place] [facility] [place]ENDING PHYSICIAN: Bill Patten M.D. DATE OF [...] Date - Chronic obstructive pulmonary disease (COPD) ([facility]) Social History Socioeconomic History Marital status: [...] reviewed and negative. [facility] Most recent images Reviewed [...] No edema Lian Aparicio M.D. Internal Medicine [facility] Syphilis IgG with Confon Syphilis IgG <0.2 [facility] Comment on above: Result Comment: Anti body index is interpreted as follows: Non reactive SPECIMENS <=0.8 Weak reactive SPECIMENS 0.9 to 5.9 Reactive SPECIMENS >=6.0 Performed By: #### U HCG, UAWMIC, UTOX2 #### [place] [address] Syphilis IgG, Qual Nonreactive Normal Nonreactive [facility] Comment on above: Result Comment: No s erological evidence of infection with T. pallidum. Performed By: #### U HCG, UAWMIC, UTOX2 #### [place] [address] XR LUMBAR 2V AP/LATon 2018 XR LUMBAR [...] Left-sided convex curvature of the lumbar spine. Lockstitch Topstitcher: SONNY Transcribe Date/Time: Aug 24 2018 9:30A Dictated by : ARMAND EVANS MD This examination was interpreted and the report reviewed and electronically signed by: ARMAND EVANS MD on Aug 24 2018 9:33AM EST [id number] [facility] HNO ID: [id number] Author: Cathy MoctezumaLpcc-AtrNany Corley, Therapist Service: Art Therapy Author Type: [...] to feel little better. SIGNATURE: [facility]athy Corley [facility] PAT[facility] NAME: Karen Solis DATE: August 23, 2018 TIME: 5:33 PM [facility] HNO ID: [id number] Author: Moncho Hollins (Chaplain) Service: Spiritual Care Author Type: Tissue Packer Type: [facility] Health Filed: 08/23/2018 12:24 PM Note Text: [...] DATE: August 23, 2018 TIME: 12:23 PM [facility] HNO ID: [id number] Author: Gifty De Luna (Lsw) Service: Art Therapy Author Type: Art Therapist Type: Allied Health Filed: 08/23/2018 11:16 AM Note Text: GROUP PROGRESS NOTE SERVICE DATE: 08/23/2018 SERVICE TIME: 9:30 AM Length (minutes): 60 Attendance: Sleeping Participation Level: Did Not Attend GROUP PARTICIPATION: Group Topics: Community Meeting: Reflective Quotes, Symptom AND Mood Check-In and Treatment Progress SIGNATURE: Gifty De Luna, [employer] SALES REPRESENTATIVE,ATR, STERILE SUPERVISOR PATIENT NAME: Karen Solis DATE: August 23, 2018 TIME: 11:15 AM [facility] PROGRESSon 08-23-2018 Protein mass conc HNO ID: [id number] Author: Patsy Juarez Service: General Internal Medicine [...] CBC, Coags, BMP, Mg, Phos Recent Labs 03/01/19 2315 WBC 6.66 HB 17.0* HCT 47.2* [...] Patsy Juarez MD DATE: August 23, 2018 [facility] PROGRESSon 08-22-2018 Protein mass conc HNO ID: [id number] Author: Lian Aparicio Service: ? Author Type: Physician Type: Progress Notes Filed: 10/18/2018 10:26 PM Note Text: [facility] - General Progress Note KAREN SOLIS : 1970 AGE: 48 SEX: F CSN: [id number] [facility] [place] [facility] [place] ATTENDING PHYSICIAN: Bill Patten M.D. DATE OF [...] / radial Lian Aparicio M.D. Internal [facility] HNO ID: [id number] Author: Gifty De Luna (Lsw) Service: Art [...] attempted to assess. Pt last on [facility] 2012. Therapist will continue to encourage her to attend groups once she is awake/alert. SIGNATURE: Gifty De Luna, ELOY,ATR, STERILE SUPERVISOR PATIENT NAME: Karen Solis DATE: August 21, 2018 TIME: 1:48 PM PAGER/CONTACT #: [facility] HNO ID: [id number] Author: Gifty De Luna (Lsw) Service: Art Therapy Author Type: Art Therapist Type: Allied Health Filed: 08/21/2018 2:09 PM Note Text: GROUP PROGRESS NOTE SERVICE DATE: 08/21/2018 SERVICE TIME: 01:45 PM Length (minutes): 15 Attendance: Sleeping Participation Level: Did Not Attend GROUP PARTICIPATION: Group Topics: Art Therapy: Directive - [employer] SIGNATURE: Gifty De Luna LPC,ATR, STERILE SUPERVISOR PATIENT NAME: Karen Solis DATE: August 21, 2018 TIME: 2:08 PM [facility] HNO ID: [id number] Author: Gifty De Luna (Lsw) Service: Art Therapy Author Type: Art Therapist Type: Allied Health Filed: 08/21/2018 11:22 AM Note Text: GROUP PROGRESS NOTE SERVICE DATE: 08/21/2018 SERVICE TIME: 11:00 AM Length (minutes): 30 Attendance: Sleeping Participation Level: Did Not Attend GROUP PARTICIPATION: Group Topics: Community Resources: Alcoholics Anonymous SIGNATURE: Gifty De Luna LPCATR, STERILE SUPERVISOR PATIENT NAME: Karen Solis DATE: August 21, 2018 TIME: 11:22 AM [facility] HNO ID: [id number] Author: Gifty De Luna (Lsw) Service: Art Therapy Author Type: Art Therapist Type: Allied Health Filed: 08/21/2018 9:43 AM Note Text: GROUP PROGRESS NOTE SERVICE DATE: 08/21/2018 SERVICE TIME: 9:15 AM Length (minutes): 15 Attendance: Sleeping Participation Level: Did Not Attend GROUP PARTICIPATION: Group Topics: Community Meeting: Reflective Quotes, Symptom AND Mood Check-In and Treatment Progress SIGNATURE: Gifty De Luna LPC,ATR, STERILE SUPERVISOR PATIENT NAME: Karen Solis DATE: August 21, 2018 TIME: 9:43 AM [facility] CBC and Differentialon 08-21 Abs Baso 0.05 k/uL Normal <0.11 [facility] Comment on above: Performed By: #### C BCDIF, ALCO, CMP, MG1 #### [place] [address] Abs [place] 0.69 k/uL Normal <0.87 [facility] Comment on above: Performed By: #### C BCDIF, ALCO, CMP, MG1 #### [place] [address] Abs Neut 3.91 k/uL Normal 1.45-7.50 [facility] Comment on above: Performed By: #### C BCDIF, ALCO, CMP, MG1 #### [place] [address] Basophils/100 WBC (Bld) 0.8 % Normal [facility] Comment on above: Performed By: #### C BCDIF, ALCO, CMP, MG1 #### [place] [address] Eosinophils #/vol (Bld) 0.12 10*3/uL Normal <0.46 [facility] Comment on above: Performed By: #### C BCDIF, ALCO, CMP, MG1 #### [place] [address] Eosinophils/100 WBC (Bld) 1.8 % Normal [facility] Comment on above: Performed By: #### C BCDIF, ALCO, CMP, MG1 #### [place] [address] Erythrocyte distribution width Ratio (RBC) 14.2 % Normal 11.5-15.0 [facility] Comment on above: Performed By: #### C BCDIF, ALCO, CMP, MG1 #### [place] [address] Hematocrit Volume Fraction (Bld) 47.2 % High 36.0-46.0 [facility] Comment on above: Performed By: #### C BCDIF, ALCO, CMP, MG1 #### [place] [address] Hemoglobin mass conc (Bld) 17.0 g/dL High 11.5-15.5 [facility] Comment on above: Performed By: #### C BCDIF, ALCO, CMP, MG1 #### [place] [address] Lymphocytes #/vol (Bld) 1.89 10*3/uL Normal 1.00-4.00 [facility] Comment on above: Performed By: #### C BCDIF, ALCO, CMP, MG1 #### [place] [address] Lymphocytes/100 WBC (Bld) 28.4 % Normal [facility] Comment on above: Performed By: #### C BCDIF, ALCO, CMP, MG1 #### [place] [address] MCH Entitic mass (RBC) 32.7 pG Normal 26.0-34.0 [facility] Comment on above: Performed By: #### C BCDIF, ALCO, CMP, MG1 #### [place] [address] MCHC mass conc (RBC) 36.0 g/dL Normal 30.5-36.0 [facility] Comment on above: Performed By: #### C BCDIF, ALCO, CMP, MG1 #### [place] [address] MCV Entitic volume (RBC) 90.8 fL Normal 80.0-100.0 [facility] Comment on above: Performed By: #### C BCDIF, ALCO, CMP, MG1 #### [place] [address] Monocytes/100 WBC (Bld) 10.4 % Normal [facility] Comment on above: Performed By: #### C BCDIF, ALCO, CMP, MG1 #### [place] [address] Neutrophils/100 WBC (Bld) 58.6 % Normal [facility] Comment on above: Performed By: #### C BCDIF, ALCO, CMP, MG1 #### [place] [address] NRBCs 0.0 /100 WBC Normal 0 [facility] Comment on above: Performed By: #### C BCDIF, ALCO, CMP, MG1 #### [place] [address] Platelet mean volume Entitic volume (Bld) 9.1 fL Normal 9.0-12.7 [facility] Comment on above: Performed By: #### C BCDIF, ALCO, CMP, MG1 #### [place] [address] Platelets #/vol (Bld) 278 10*3/uL Normal 150-400 [facility] Comment on above: Performed By: #### C BCDIF, ALCO, CMP, MG1 #### [place] [address] RBC #/vol (Bld) 5.20 10*6/uL Normal 3.90-5.20 [facility] [facility] Comment on above: Performed By: #### C BCDIF, ALCO, CMP, MG1 #### [place] [address] WBC #/vol (Bld) 6.66 10*3/uL Normal 3.70-11.00 [facility] Comment on above: Performed By: #### C BCDIF, ALCO, CMP, MG1 #### [place] [address] Comp Metabolic Panelon 08-21 Albumin mass conc 4.6 g/dL Normal 3.9-4.9 [facility] Comment on above: Performed By: #### C BCDIF, ALCO, CMP, MG1 ####[place] [id number] ALP enzyme act/vol 152 U/L High 34-[address] [facility] Comment on above: Performed By: #### C BCDIF, ALCO, CMP, MG1 ####[place] [id number] ALT enzyme act/vol 31 U/L Normal 7-[address] [facility] Comment on above: Performed By: #### C BCDIF, ALCO, CMP, MG1 ####[place] [id number] Anion gap molar conc 13 mmol/L Normal 9-18 [facility] Comment on above: Performed By: #### C BCDIF, ALCO, CMP, MG1 ####[place] [id number] AST enzyme act/vol 44 U/L High 13-[address] [facility] Comment on above: Performed By: #### C BCDIF, ALCO, CMP, MG1 ####[place] [id number] Bilirubin mass conc 0.2 mg/dL Normal 0.2-1.3 [facility] Comment on above: Performed By: #### C BCDIF, ALCO, CMP, MG1 ####[place] [id number] Calcium mass conc 9.1 mg/dL Normal 8.5-10.2 [facility] Comment on above: Performed By: #### C BCDIF, ALCO, CMP, MG1 ####[place] [id number] Chloride molar conc 97 mmol/L Normal 97-105 [facility] Comment on above: Performed By: #### C BCDIF, ALCO, CMP, MG1 ####[place] [id number] CO2 molar conc 26 mmol/L Normal 22-30 [facility] Comment on above: Performed By: #### C BCDIF, ALCO, CMP, MG1 ####[place] [id number] Creatinine mass conc 0.69 mg/dL Normal 0.58-0.96 [facility] Comment on above: Performed By: #### C BCDIF, ALCO, CMP, MG1 ####[place] [id number] eGFR- Amer. >60 Normal >[address] [facility] Comment on above: Performed By: #### C BCDIF, ALCO, CMP, MG1 ####[place] [id number] GFR/1.73 sq M predicted among non-blacks MDRD vol rate/area (S/P/Bld) mL/min/{1.73_m2} Normal >60 [facility] Comment on above: Result Comment: eGFR [...] By: #### C BCDIF, ALCO, CMP, MG1 ####[place] [id number] Glucose mass conc 124 mg/dL High 74-99 [facility] Comment on above: Performed By: #### C BCDIF, ALCO, CMP, MG1 ####[address] Potassium molar conc 3.6 mmol/L Low 3.7-5.1 [facility] Comment on above: Performed By: #### C BCDIF, ALCO, CMP, MG1 ####[place] [id number] Protein mass conc 7.5 g/dL Normal 6.3-8.0 [facility] Comment on above: Performed By: #### C BCDIF, ALCO, CMP, MG1 ####[place] [id number] Sodium molar conc 136 mmol/L Normal 136-144 [facility] Comment on above: Performed By: #### C BCDIF, ALCO, CMP, MG1 ####[address], [place] [phone] Urea nitrogen mass conc 5 mg/dL Low 7-21 L [facility] Comment on above: Performed By: #### C BCDIF, ALCO, CMP, MG1 ####[facility] [phone] ECG COMPLETEon 08-21-2018 ECG COMPLETE NAME : KAREN SOLIS PID : [id number] : 1970 Gender : Female Race : ORD : [id number] Procedure Date : Aug 20 2018 23:08:21 Edit Date : Aug 22 2018 10:03:53 Diagnosis:SINUS RHYTHM PROBABLE LEFT ATRIAL ABNORMALITY PROBABLE INFERIOR INFARCT, OLD BORDERLINE PROLONGED QT INTERVAL Abnormal ECG No Stemi ROSA MARIA 08/20 @ 2328 Confirmed by DO CRANE NICHOLAS ([id number]), tape editor DIONY MASCORRO ([id number]) on 08/22/2018 10:03:50 AM Ventricular Rate : 94 BPM Atrial Rate : 94 BPM P-R Interval : 196 ms QRS Duration : 82 ms Q-T Interval : 400 ms QTC Calculation(Bezet) : 500 ms P Minter : 74 degrees R Minter : 23 degrees T Minter : 46 degrees Test Reason : Pre-OP Location : 502 : LUED 5 Overread By : DO CRANE NICHOLAS Edited By : DIONY MASCORRO Referred By : , Acquired by : , [facility] ED NOTEon 08-21-2018 ED NOTE HNO ID: [id number] Author: Mary MoctezumaRn) MANI Quintana Service: (none) Author Type: Registered Nurse Type: ED Notes Filed: 08/21/2018 12:00 AM Note Text: Patient resting in bed, rise and fall of chest observed. Safety maintained and will continue to monitor [facility] ED NOTE HNO ID: [id number] Author: Mary MoctezumaRn) Lilian, MANI Service: (none) Author Type: Registered Nurse Type: ED Notes Filed: 08/20/2018 11:38 PM Note Text: Medication given. Patient educated on medication and verbalized understanding. Patient agreeable with POC. Will continue to monitor. [facility] ED NOTE HNO ID: [id number] Author: Mary Vernon) MANI Quintana Service: (none) Author Type: Registered Nurse Type: ED Notes Filed: 08/20/2018 11:26 PM Note Text: Intake at bedside [facility] ED NOTE HNO ID: [id number] Author: Mary MoctezumaRn) MANI Quintana Service: (none) Author Type: Registered Nurse Type: ED Notes Filed: 08/20/2018 11:14 PM Note Text: Labs were drawn and sent. [facility] ED NOTE HNO ID: [id number] Author: Mary MoctezumaRn) MANI Quintana Service: (none) Author Type: Registered Nurse Type: ED Notes Filed: 08/20/2018 11:11 PM Note Text: Medication given. Patient educated on medication and verbalized understanding. Patient agreeable with POC. Will continue to monitor. [facility] ED NOTE HNO ID: [id number] Author: Gwendolyn MoctezumaRn) Clem Rod RN Service: Nursing Author Type: Registered Nurse Type: ED Notes Filed: 08/20/2018 10:55 PM Note Text: Clean catch urine specimen obtained and sent. [facility] ED NOTE HNO ID: [id number] Author: Rubén MoctezumaRn) MANI Gray Service: (none) Author Type: Registered Nurse Type: ED Notes Filed: 08/20/2018 10:53 PM Note Text: Patient has an ID Band on, family at bedside, bed in lowest locked position. Patient provided hospital gown and pants and non slip socks. Patient to restroom to provide sample at this time. 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 used: No PAST MEDICAL HISTORY Diagnosis Date [...] per minute AXIS: Normal axis INTERVALS: Normal HI interval QRS COMPLEX: Normal ST SEGMENT: Normal [...] DO Ramin Ventura DO 08/20/18 2347 Normal [facility] Ethanolon 08-21-2018 Ethanol mass conc 247 mg/dL High <11 [facility] Comment on above: Performed By: #### C BCDIF, ALCO, CMP, MG1 #### [place] [id number] HCG Qual, Urineon 08-21-2018 HCG.beta subunit ( test) Ql (U) Negative Normal Negative [facility] Comment on above: Performed By: #### U HCG, UAWMIC, UTOX2 #### [address] [address] Magnesiumon 08-21-2018 Magnesium mass conc 2.2 mg/dL Normal 1.7-2.3 [facility] Comment on above: Performed By: #### C JOYA, MIRANDA, CMP, MG1 ####[facility] [phone] NURSING PROGon 08-21-2018 Protein mass conc HNO ID: [id number] Author: Padilla (Rn) MANI Lewis Service: Nursing Author Type: Registered Nurse Type: Nursing Progress Note Filed: 08/21/2018 6:37 AM Note Text: Nursing Progress Note Patient Name: Karen Solis Patient Location: [id number]/[facility]-405* SENSITIVE ADRC Nursing Admission Note PATIENT [...] toe assessment: Patient presented to the [facility] dressed in a hospital gown with [...] note was completed by: Padilla Lewis RN [facility] Protein mass conc HNO ID: [id number] Author: Padilla Vernon) MANI Lewis Service: Nursing Author Type: Registered Nurse Type: Nursing Progress Note Filed: 08/21/2018 6:30 AM Note Text: Nursing Progress Note Patient Name: Karen Solis Patient Location: [id number]/[facility]-405* SENSITIVE [facility] SUICIDE RISK ASSESSMENT PATIENT NAME: Karen Solis SERVICE DATE: 08/21/2018 SERVICE TIME: 0410 LETHALITY FACTORS: Access to Means: Any firearms in home?No Moved a firearm recently?No Any current suicide plan not involving firearm? No Is patient an inpatient in [facility]?Yes--does any suicide plan suggest risk of [...] Presence of Meaningful Daily Activities?Yes Currently employed?No Faith Affiliation?Yes [employer]: Does pt believe treatment can help his/her negative feelings?Yes History of good medication compliance in past?Yes FORMULATION OF SUICIDE RISK: low Will any interventions be undertaken to address above-listed Lethality or Protective Factors? Reduce alcohol and drug abuse Consult Pastoral Care to improve temple affiliation SIGNATURE: Padilla Lewis RN DATE: August 21, 2018 TIME: 6:27 AM Assessment adapted from Suicide Prevention Toolkit for Implementation of NPSG 15A by [facility] Resources This note was completed by: Padilla Lewis RN Normal [facility] PROGRESSon 08-21-2018 Protein mass conc HNO ID: [id number] Author: Lian Aparicio Service: ? Author Type: Physician Type: Progress Notes Filed: 10/17/2018 7:16 PM Note Text: [facility] - General Progress Note KAREN SOLIS : 1970 AGE: 48 SEX: F CSN: [id number] HOSP SVC: YR [place] [facility] [place]ENDING PHYSICIAN: Bill Patten M.D. DATE OF [...] aerosol treatment. Lian Aparicio M.D. Internal Medicine JOYNER:[id number] [facility] Protein mass conc HNO ID: [id number] Author: Downtime Note Service: ? Author Type: ? Type: Progress Notes Filed: 08/21/2018 5:27 AM Note Text: Epic Scheduled Downtime: 08/21/2018 1:00:00 AM to 08/21/2018 5:17:00 AM [facility] Toxicology Screen,Uron 08-21 Amphetamines, Urine Negative Normal Negative [facility] Comment on above: Result Comment: Cuto ff threshold at 1000 ng/mL. Performed By: #### U HCG, UAWMIC, UTOX2 #### [place] [phone] Barbiturates, Urine Negative Normal Negative [facility] Comment on above: Result Comment: Cuto ff threshold at 200 ng/mL. Performed By: #### U HCG, UAWMIC, UTOX2 #### [place] [phone] Benzodiazepines, Ur Negative Normal Negative [facility] Comment on above: Result Comment: Cuto ff threshold at 200 ng/mL. Performed By: #### U HCG, UAWMIC, UTOX2 #### [place] [address]2018 Cannabinoids, Urine Negative Normal Negative [facility] Comment on above: Result Comment: Cuto ff threshold at 50 ng/mL. Performed By: #### U HCG, UAWMIC, UTOX2 #### [place] [address] Cocaine, Urine Negative Normal Negative [facility] Comment on above: Result Comment: Cuto ff threshold at 300 ng/mL. Performed By: #### U HCG, UAWMIC, UTOX2 #### [place] [address] Ethanol, Urine 291 mg/dL High <11 [facility] Comment on above: Performed By: #### U HCG, UAWMIC, UTOX2 #### [place] [address] Opiates, Urine Negative Normal Negative [facility] Comment on above: Result Comment: Cuto ff threshold at 300 ng/mL. Performed By: #### U HCG, UAWMIC, UTOX2 #### [place] [address] Oxycodone, Urine Negative Normal Negative [facility] Comment on above: Result Comment: Cuto ff [...] on the same specimen through Client Services ([phone]) if contacted within 48 hours of initial testing. [1]Substance Abuse and Mental Health Services Administration (2012). Clinical Drug Testing in Primary Care Technical Assistance Publication Series 32. Department of Health and Human Services, [place], p.10. Performed By: #### U HCG, UAWMIC, UTOX2 #### [place] [address] Phencyclidine, Urine Negative Normal Negative [facility] Comment on above: Result Comment: Cuto ff threshold at 25 ng/mL. Performed By: #### U HCG, UAWMIC, UTOX2 #### [place] [address] Urinalysis with Microscopico n 08-21-2018 Bilirubin, Urine Negative Normal Negative [facility] Comment on above: Performed By: #### U HCG, UAWMIC, UTOX2 #### [place] [address] Cast SEE COMMENT Normal 0 [facility] Comment on above: Result Comment: 0 Performed By: #### U HCG, UAWMIC, UTOX2 #### [place] [address] Clarity Nom (U) Clear Normal Clear [facility] Comment on above: Performed By: #### U HCG, UAWMIC, UTOX2 #### [place] [address] Color Nom (U) Straw Critically abnormal Yellow [facility] Comment on above: Performed By: #### U HCG, UAWMIC, UTOX2 #### [place] [address] Epithelial cells LM.HPF #/area (Urine sed) SEE COMMENT Normal [facility] Comment on above: Result Comment: Squa mous 2-5 Performed By: #### U HCG, UAWMIC, UTOX2 #### [place] [address] Glucose Ql (U) Negative Normal Negative [facility] Comment on above: Performed By: #### U HCG, UAWMIC, UTOX2 #### [place] [address] Hemoglobin/Blood,Ur Trace Critically abnormal Negative [facility] Comment on above: Performed By: #### U HCG, UAWMIC, UTOX2 #### [place] [address] Ketones Ql (U) Negative Normal Negative [facility] Comment on above: Performed By: #### U HCG, UAWMIC, UTOX2 #### [place] [address] Leukest Trace Critically abnormal Negative [facility] Comment on above: Performed By: #### U HCG, UAWMIC, UTOX2 #### [place] [address] Nitrite Ql (U) Negative Normal Negative [facility] Comment on above: Performed By: #### U HCG, UAWMIC, UTOX2 #### [place] [address] pH (Bld) 6.0 Normal 4.5-8.0 [facility] Comment on above: Performed By: #### U HCG, UAWMIC, UTOX2 #### [place] [address] Protein mass conc (U) Negative Normal Negative [facility] Comment on above: Performed By: #### U HCG, UAWMIC, UTOX2 #### [place] [address] RBC #/vol (U) 0-3 Normal 0-3 [facility] Comment on above: Performed By: #### U HCG, UAWMIC, UTOX2 #### [place] [address] Specific [place], Ur <=1.005 Normal 1.005-1.030 [facility] Comment on above: Performed By: #### U HCG, UAWMIC, UTOX2 #### [place] [address] Urobilinogen Qn (U) 0.2 Normal 0.2-1.0 [facility] Comment on above: Performed By: #### U HCG, UAWMIC, UTOX2 #### [place] [address] WBC #/vol (Bld) 0-5 Normal 0-5 [facility] Comment on above: Performed By: #### U HCG, UAWMIC, UTOX2 #### [facility] [address] [place] [id number] HISTORY PHYSICALon 9 HISTORY PHYSICAL HNO ID: [id number] Author: Lian Aparicio Service: ? Author Type: Physician Type: HANDP Filed: 08/23/2018 4:01 PM Note Text: [facility] - History and Physical KAREN SOLIS : 1970 AGE: 48 SEX: F CSN: [id number] [facility] [facility] LOCATION[place] [facility] [place] ATTENDING PHYSICIAN: NALINI NI ADMIT DATE: 08/20/2018 [...] Date - Chronic obstructive pulmonary disease (COPD) ([facility]) Social History Socioeconomic History Marital status: [...] F/u cmp Lian Aparicio M.D. Internal Medicine [facility] Vital Signs Date Time Vital Sign Value Performing Clinician Facility 11-06-2023 10:56-0400 Body height 170.18 cm [facility] 11-06-2023 10:56-0400 Body mass index (BMI) [Ratio] 23.6 kg/m2 [facility] 11-06-2023 10:56-0400 Body weight 68.49 kg [facility] 11-06-2023 10:56-0400 Diastolic blood pressure 76 mm[Hg] [facility] 11-06-2023 10:56-0400 Heart rate 72 /min [facility] 11-06-2023 10:56-0400 Respiratory rate 18 /min [facility] 11-06-2023 10:56-0400 SaO2% (BldA) [Mass fraction] 99 % [facility] 11-06-2023 10:56-0400 Systolic blood pressure 118 mm[Hg] [facility] 07-20-2023 13:15-0500 Body height 170.18 cm Isiah Purcell Other [facility] 07-20-2023 13:15-0500 Body mass index (BMI) [Ratio] 22.71 kg/m2 Isiah Purcell Other [facility] Other 07-20-2023 13:15-0500 Body weight 65.77 kg Isiah Purcell Other [facility] 06-10-2023 14:45-0500 Diastolic blood pressure 82 mm[Hg] DO Christin Grullon Work Phone: [facility] 06-10-2023 14:45-0500 Heart rate 70 /min DO Christin Grullon Work Phone: [facility] 06-10-2023 14:45-0500 Respiratory rate 16 /min DO Christin Grullon Work Phone: [facility] 06-10-2023 14:45-0500 SaO2% (BldA) [Mass fraction] 96 % DO Christin Grullon Work Phone: [facility] 06-10-2023 14:45-0500 Systolic blood pressure 132 mm[Hg] DO Christin Grullon Work Phone: [facility] 06-10-2023 12:17-0500 Body temperature 97.7 [degF] DO Christin Grullon Work Phone: [facility] 06-10-2023 12:17-0500 Inhaled oxygen flow rate 6 L/min DO Christin Grullon Work Phone: [facility] 06-10-2023 09:27-0500 Body height 167.64 cm DO Christin Grullon Work Phone: [facility] 06-10-2023 09:27-0500 Body mass index (BMI) [Ratio] 23.5 kg/m2 DO Christin Grullon Work Phone: [facility] 06-10-2023 09:27-0500 Body weight 66 kg DO Christin Grullon Work Phone: [facility] 05-25-2023 10:15-0500 Body height 170.18 cm Isiah Purcell Other [facility] Other 05-25-2023 10:15-0500 Body mass index (BMI) [Ratio] 23.02 kg/m2 Isiah Purcell Other [facility] Other 05-25-2023 10:15-0500 Body weight 66.68 kg Isiah Purcell Other [facility] [employer] Other 05-05-2023 09:20-0500 Diastolic blood pressure 74 mm[Hg] DO Christin Grullon Work Phone: [facility] 05-05-2023 09:20-0500 Heart rate 66 /min DO Christin Grullon Work Phone: [facility] 05-05-2023 09:20-0500 Respiratory rate 16 /min DO Christin Grullon Work Phone: [facility] 05-05-2023 09:20-0500 SaO2% (BldA) [Mass fraction] 100 % DO Christin Grullon Work Phone: [facility] 05-05-2023 09:20-0500 Systolic blood pressure 120 mm[Hg] DO Christin Grullon Work Phone: [facility] 05-05-2023 08:42-0500 Inhaled oxygen flow rate 3 L/min DO Christin Grullon Work Phone: [facility] 05-05-2023 07:59-0500 Body height 167.64 cm DO Christin Grullon Work Phone: [facility] 05-05-2023 07:59-0500 Body weight 63.5 kg DO Christin Grullon Work Phone: [facility] 03-17-2023 14:30-0400 Body height 170.18 cm Christin Mead Other [facility] [employer] Other 02-24-2023 14:20-0400 Body height 170.18 cm Clovis Andersen Other [facility] Other 02-24-2023 14:20-0400 Body mass index (BMI) [Ratio] 23.02 kg/m2 Clovis Andersen Other [facility] Other 02-24-2023 14:20-0400 Body weight 66.68 kg Clovis Andersen Other [facility] Other 02-24-2023 14:20-0400 Diastolic blood pressure 70 mm[Hg] Clovis Andersen Other [facility] Other 02-24-2023 14:20-0400 Systolic blood pressure 104 mm[Hg] Clovis Andersen Other [facility] Other 12-05-2022 12:00-0400 Body height 170.18 cm Christin Grullon Other [facility] Other 12-05-2022 12:00-0400 Body mass index (BMI) [Ratio] 20.83 kg/m2 Christin Grullon Other [facility] Other 12-05-2022 12:00-0400 Body weight 60.33 kg Christin Grullon Other [facility] Other 12-05-2022 12:00-0400 Diastolic blood pressure 62 mm[Hg] Christin Grullon Other [facility] Other 12-05-2022 12:00-0400 Respiratory rate 18 /min Christin Grullon Other [facility] Other 12-05-2022 12:00-0400 SaO2% (BldA) [Mass fraction] 98 % Christin Grullon Other [facility] Other 12-05-2022 12:00-0400 Systolic blood pressure 118 mm[Hg] Christin Grullon Other [facility] Other 09-26-2022 11:00-0400 Body height 170.18 cm Pratik Wallerley Other [facility] Other 09-26-2022 11:00-0400 Body mass index (BMI) [Ratio] 20.36 kg/m2 Pratikbaldemar Cross Other [facility] Other 09-26-2022 11:00-0400 Body weight 58.97 kg Pratikbaldemar Cross Other [facility] Other 07-16-2022 16:30-0500 Body height 170.18 cm Christin Grullon Other [facility] Other 07-16-2022 16:30-0500 Body mass index (BMI) [Ratio] 19.58 kg/m2 Christin Grullon Other [facility] Other 07-16-2022 16:30-0500 Body weight 56.7 kg Christin Grullon Other [facility] Other 07-16-2022 16:30-0500 Diastolic blood pressure 82 mm[Hg] Christin Grullon Other [facility] Other 07-16-2022 16:30-0500 Respiratory rate 18 /min Christin Grullon Other [facility] Other 07-16-2022 16:30-0500 SaO2% (BldA) [Mass fraction] 98 % Christin Grullon Other [facility] Other 07-16-2022 16:30-0500 Systolic blood pressure 136 mm[Hg] Christin Grullon Other [facility] Other 07-14-2022 11:00-0500 Body temperature 97.7 [degF] DO Christin Grullon Work Phone: [facility] 07-14-2022 11:00-0500 Diastolic blood pressure 75 mm[Hg] DO Christin Grullon Work Phone: [facility] 07-14-2022 11:00-0500 Heart rate 72 /min DO Christin Grullon Work Phone: [facility] 07-14-2022 11:00-0500 Respiratory rate 20 /min DO Christin Grullon Work Phone: [facility] 07-14-2022 11:00-0500 SaO2% (BldA) [Mass fraction] 98 % DO Christin Grullon Work Phone: [facility] 07-14-2022 11:00-0500 Systolic blood pressure 126 mm[Hg] DO Christin Grullon Work Phone: [facility] 07-10-2022 16:43-0500 Body weight 0 kg DO Christin Grullon Work Phone: [facility] 05-19-2022 14:15-0500 Body height 170.18 cm Christin Alcocerley Other [facility] Other 05-19-2022 14:15-0500 Body mass index (BMI) [Ratio] 19.73 kg/m2 Christin Grullon Other [facility] Other 05-19-2022 14:15-0500 Body weight 57.15 kg Christin Grullon Other [facility] Other 05-19-2022 14:15-0500 Diastolic blood pressure 77 mm[Hg] Christin Grullon Other [facility] Other 05-19-2022 14:15-0500 Respiratory rate 18 /min Christin Grullon Other [facility] Other 05-19-2022 14:15-0500 SaO2% (BldA) [Mass fraction] 99 % Christin Grullon Other [facility] Other 05-19-2022 14:15-0500 Systolic blood pressure 135 mm[Hg] Christin Grullon Other [facility] Other 05-01-2021 11:15-0500 Body height 170.18 cm Christin Grullon Other [facility] Other 05-01-2021 11:15-0500 Body mass index (BMI) [Ratio] 17.85 kg/m2 Christin Grullon Other [facility] Other 05-01-2021 11:15-0500 Body temperature 97.8 [degF] Christin Grullon Other [facility] Other 05-01-2021 11:15-0500 Body weight 51.71 kg Christin Grullon Other [facility] Other 05-01-2021 11:15-0500 Diastolic blood pressure 84 mm[Hg] Christin Grullon Other [facility] Other 05-01-2021 11:15-0500 Respiratory rate 16 /min Christin Grullon Other [facility] Other 05-01-2021 11:15-0500 SaO2% (BldA) [Mass fraction] 100 % Christin Grullon Other [facility] Other 05-01-2021 11:15-0500 Systolic blood pressure 128 mm[Hg] Christin Grullon Other [facility] Other 03-20-2021 14:15-0400 Body height 170.18 cm Christin Grullon Other [facility] Other 03-20-2021 14:15-0400 Body mass index (BMI) [Ratio] 18.32 kg/m2 Christin Grullon Other [facility] Other 03-20-2021 14:15-0400 Body temperature 99 [degF] Christin Grullon Other [facility] Other 03-20-2021 14:15-0400 Body weight 53.07 kg Christin Grullon Other [facility] Other 03-20-2021 14:15-0400 Diastolic blood pressure 84 mm[Hg] Christin Grullon Other [facility] Other 03-20-2021 14:15-0400 Respiratory rate 16 /min Christin Grullon Other [facility] Other 03-20-2021 14:15-0400 SaO2% (BldA) [Mass fraction] 98 % Christin Grullon Other [facility] Other 03-20-2021 14:15-0400 Systolic blood pressure 118 mm[Hg] Christin Grullon Other [facility] Other Encounters Encounter Date Encounter Type Care Provider Facility Start: 05-02-2024 End: 05-02-2024 ambulatory Damien Pastrana MD Facility:[facility] Start: 02-15-2024 End: 02-15-2024 ambulatory Damien Pastrana MD [facility] Start: 02-01-2024 End: 02-01-2024 ambulatory Damien Pastrana MD Facility:[facility] [place] Start: 12-14-2023 End: 12-14-2023 ambulatory Damien Pastrana MD Facility:[facility] [place] Start: 11-09-2023 End: 11-09-2023 ambulatory [facility] Work Phone: Start: 11-09-2023 End: 11-09-2023 Patient encounter procedure [facility] Work Phone: Start: 11-06-2023 End: 11-06-2023 ambulatory [facility] Work Phone: Start: 11-06-2023 End: 11-06-2023 Patient encounter procedure [facility] [place] Work Phone: Start: 10-14-2023 End: 10-14-2023 ambulatory [facility] Work Phone: Start: 10-14-2023 End: 10-14-2023 Patient encounter procedure [facility] Work Phone: Start: 10-14-2023 Non-patient / Non-visit [facility] Work Phone: Start: 09-30-2023 Non-patient / Non-visit [facility] Work Phone: Start: 09-16-2023 End: 09-16-2023 ambulatory DO Christin Grullon Work Phone: [facility] Work Phone: Start: 09-16-2023 End: 09-16-2023 Patient encounter procedure DO Christin Grullon Work Phone: [facility] Work Phone: Start: 09-16-2023 Non-patient / Non-visit [facility] Work Phone: Start: 09-14-2023 Non-patient / Non-visit DO Ben Grullon Work Phone: [facility] Work Phone: Start: 08-27-2023 End: 08-27-2023 Patient encounter procedure DO Christin Grullon Work Phone: [facility] Work Phone: Start: 07-20-2023 End: 07-20-2023 ambulatory Isiah Purcell Other [facility] [employer] Other Start: 07-20-2023 Postop follow up vis it related to original px Isiah Purcell [facility] [place] [facility] Start: 07-20-2023 End: 07-20-2023 Patient encounter procedure DO Christin Grullon Work Phone: [facility]- Start: 06-24-2023 End: 06-24-2023 ambulatory Isiah Purcell Other [facility] [employer] Other Start: 06-24-2023 Telephone encounter Isiah Purcell [facility] Start: 06-23-2023 End: 06-23-2023 ambulatory Isiah Purcell Facility:[facility] Start: 06-23-2023 Postop follow up vis it related to original px Isiah Purcell [facility] [place] Start: 06-23-2023 End: 06-23-2023 ambulatory DO Christin Grullon Work Phone: [facility] Work Phone: Start: 06-23-2023 End: 06-23-2023 Patient encounter procedure DO Christin Grullon Work Phone: [facility] [place] [facility] Start: 06-23-2023 End: 06-23-2023 Patient encounter procedure DO Christin Grullon Work Phone: [facility] [place] [facility] Work Phone: Start: 06-18-2023 End: 06-18-2023 ambulatory Isiah Purcell Other [facility] Other Start: 06-18-2023 Telephone encounter Isiah Wilfredo [facility] Start: 06-16-2023 End: 06-16-2023 ambulatory Julee Bill Other [facility] [employer] Other Start: 06-16-2023 Telephone encounter Julee Bill [facility] Start: 06-10-2023 End: 06-10-2023 ambulatory Isiah Purcell Facility:[facility] Start: 06-10-2023 End: 06-10-2023 Admission to same day surgery center DO Christin Grullon Work Phone: [facility] [place] Start: 06-09-2023 End: 06-09-2023 ambulatory Isiah Purcell Other [facility] [employer] Other Start: 06-09-2023 Telephone encounter Isiah Purcell [facility] Start: 06-08-2023 (Procedure) Brad Mead [facility] Start: 06-08-2023 End: 06-08-2023 ambulatory Christin Mead Other [facility] [employer] Other Start: 06-01-2023 End: 06-01-2023 ambulatory Isiah Purcell Facility:[facility] Start: 06-01-2023 End: 06-01-2023 ambulatory DO Christin Grullon Work Phone: [facility] Work Phone: Start: 06-01-2023 End: 06-01-2023 Patient encounter procedure DO Christin Grullon Work Phone: [facility] Work Phone: Start: 05-26-2023 End: 05-26-2023 ambulatory Christin Johnsonparag Other [facility] Other Start: 05-26-2023 Office outpatient vi sit 25 minutes Christin Mead [facility] [place] Start: 05-25-2023 End: 05-25-2023 ambulatory Isiah Purcell Other [facility] Other Start: 05-25-2023 Encounter by cresencio Grullon [facility] [place] Start: 05-25-2023 Encounter for other preprocedural examination Isiah Purcell [facility] [place] [facility] Start: 05-25-2023 Office outpatient vi sit 40 minutes Isiah Purcell [facility] Start: 05-05-2023 (Procedure) Short Christin Mead [facility] Start: 05-05-2023 End: 05-05-2023 ambulatory Christin Mead Facility:[facility] Start: 05-05-2023 End: 05-05-2023 Admission to same day surgery center DO Christin Grullon Work Phone: [facility]-Digestive [facility] Work Phone: Start: 05-05-2023 End: 05-05-2023 ambulatory DO Christin Grullon Work Phone: [facility] Work Phone: Start: 05-04-2023 End: 05-04-2023 ambulatory Chirstin Alexparag Other [facility] Other Start: 05-04-2023 Telephone encounter Christin Mead [facility] [place] [facility] Start: 04-29-2023 End: 04-29-2023 ambulatory Pratik Cross Other [facility] Other Start: 04-29-2023 Office outpatient vi sit 25 minutes Pratik Cross [facility] [place] [facility] Start: 04-03-2023 End: 04-03-2023 ambulatory Pratik Cross Other [facility] [employer] Other Start: 04-03-2023 Telephone encounter [facility] Start: 04-02-2023 End: 04-02-2023 ambulatory Christin Grullon Facility:[facility] Start: 04-02-2023 End: 04-02-2023 ambulatory DO Christin Grullon Work Phone: [facility] Work Phone: Start: 04-02-2023 End: 04-02-2023 Patient encounter procedure DO Christin Grullon Work Phone: [facility]-MRI [address] Work Phone: Start: 03-17-2023 End: 03-17-2023 ambulatory Christin Mead Other [facility] [employer] Other Start: 03-17-2023 Office outpatient ne w 45 minutes Christin Mead [facility] [place] Start: 03-17-2023 Telephone encounter Christin Reyes [facility] Start: 02-24-2023 End: 02-24-2023 ambulatory Gwendolyn Barron Facility:[facility] Start: 02-24-2023 End: 02-24-2023 Patient encounter procedure DO Christin Grullon Work Phone: [facility]XRay [address] Work Phone: Start: 02-24-2023 End: 02-24-2023 ambulatory DO Christin Grullon Work Phone: [facility] Work Phone: Start: 02-24-2023 Office outpatient ne w 30 minutes Clovis Andersen [facility] Start: 12-31-2022 End: 12-31-2022 ambulatory Christin Grullon Other [facility] [employer] Other Start: 12-31-2022 Telephone encounter Christin Reyes [facility] [place] Start: 12-22-2022 End: 12-22-2022 ambulatory Christin Grullon Other [facility] Other Start: 12-22-2022 Telephone encounter Christin Reyes [facility] [place] Start: 12-05-2022 End: 12-05-2022 ambulatory Christin Grullon Other [facility] Other Start: 12-05-2022 Office outpatient vi sit 15 minutes Christin Grullon [facility] [place] Start: 09-26-2022 End: 09-26-2022 ambulatory Pratik Cross Other [facility] Other Start: 09-26-2022 Office outpatient ne w 45 minutes Pratik Cross [facility] Start: 09-24-2022 End: 09-24-2022 ambulatory Christin Grullon Facility:[facility] Start: 09-24-2022 End: 09-24-2022 ambulatory DO Christin Grullon Work Phone: [facility] Work Phone: Start: 09-24-2022 End: 09-24-2022 Patient encounter procedure DO Christin Grullon Work Phone: [facility] [address] Work Phone: Start: 07-31-2022 End: 07-31-2022 ambulatory Christin Grullon Other [facility] Other Start: 07-31-2022 Telephone encounter Christin Reyes [facility] [place] Start: 07-30-2022 End: 07-30-2022 ambulatory Christin Grullon Facility:[facility] Start: 07-30-2022 End: 07-30-2022 ambulatory DO Christin Grullon Work Phone: [facility] Work Phone: Start: 07-30-2022 End: 07-30-2022 Patient encounter procedure DO Christin Grullon Work Phone: [facility] [address] Work Phone: Start: 07-21-2022 Encounter for preprocedural laboratory examination CINDY RODRIGEZ [facility] Start: 07-21-2022 End: 07-21-2022 ambulatory CINDY RODRIGEZ Facility:[facility] Start: 07-18-2022 End: 07-19-2022 ambulatory CINDY RODRIGEZ Facility:[facility] Start: 07-18-2022 End: 07-19-2022 Encounter for preprocedural laboratory examination CINDY RODRIGEZ Facility:[facility] Start: 07-16-2022 End: 07-16-2022 ambulatory Christin Grullon Other [facility] Other Start: 07-16-2022 Office outpatient vi sit 25 minutes Christin Grullon [facility] Start: 07-14-2022 End: 07-15-2022 ambulatory Jose Vincent Facility:[facility] Start: 07-14-2022 End: 07-14-2022 Admission to same day surgery center DO Christin Grullon Work Phone: [facility]-Ultrasound Cntr for Breast Car Start: 07-14-2022 End: 07-14-2022 ambulatory DO Christin Grullon Work Phone: [facility] Work Phone: Start: 07-11-2022 End: 07-12-2022 ambulatory CINDY RODRIGEZ Facility:[facility] Start: 07-10-2022 End: 07-10-2022 ambulatory Jose Vincent Facility:[facility] Start: 07-10-2022 End: 07-10-2022 ambulatory DO Christin Grullon Work Phone: [facility] Work Phone: Start: 07-10-2022 End: 07-10-2022 Patient encounter procedure DO Christin Grullon Work Phone: [facility]-Center for Breast Care Work Phone: Start: 07-08-2022 End: 07-08-2022 Patient encounter procedure DO Christin Grullon Work Phone: [facility] Work Phone: Start: 07-08-2022 End: 07-08-2022 ambulatory Christin Grullon [facility] Other Start: 07-08-2022 Telephone encounter Christin Reyes [facility] [place] Start: 07-04-2022 End: 07-05-2022 ambulatory [facility] Facility:[facility] Start: 06-30-2022 End: 06-30-2022 ambulatory Christin Grullon Other [facility] Other Start: 06-30-2022 Telephone encounter Christin Reyes [facility] [place] Start: 06-25-2022 End: 06-26-2022 ambulatory [facility] Facility:[facility] Start: 06-24-2022 End: 06-24-2022 ambulatory Christin Grullon Other [facility] Other Start: 06-24-2022 Telephone encounter Christin Reyes [facility] [place] Start: 06-19-2022 End: 06-19-2022 Patient encounter procedure DO Christin Grullon Work Phone: [facility] Work Phone: Start: 06-03-2022 End: 06-03-2022 ambulatory Christin Grullon Other [facility] Other Start: 06-03-2022 Telephone encounter Christin Reyes [facility] [place] Start: 05-28-2022 End: 05-29-2022 ambulatory [facility] Facility:[facility] Start: 05-20-2022 End: 05-20-2022 ambulatory Christin Grullon Other [facility] Other Start: 05-20-2022 Telephone encounter Christin TAN G [facility] [place] Start: 05-19-2022 Office outpatient vi sit 15 minutes Christin Grullon [facility] [place] Start: 05-19-2022 End: 05-19-2022 ambulatory DO Christin Grullon Work Phone: [facility] [employer] Other Start: 05-19-2022 End: 05-19-2022 Patient encounter procedure DO Christin Grullon Work Phone: [facility]X-Ray [facility] Start: 04-30-2022 End: 05-01-2022 ambulatory [...] Encounter for preprocedural cardiovascular examination CINDY RODRIGEZ [facility] Start: 02-04-2022 Encounter for preprocedural laboratory examination CINDY RODRIGEZ [facility] Start: 02-03-2022 End: 02-04-2022 ambulatory CINDY RODRIGEZ Facility:[facility] Start: 02-03-2022 End: 02-04-2022 Encounter for preprocedural cardiovascular examination CINDY RODRIGEZ Facility:[facility] Start: 01-08-2022 End: 01-09-2022 ambulatory CORWINMICHELLE HANLEY Facility:[facility] Start: 12-27-2021 End: 12-28-2021 ambulatory CORWIN DAYAN Facility:[facility] Start: 12-04-2021 End: 12-05-2021 ambulatory CINDY RODRIGEZ Facility:[facility] Start: 11-08-2021 End: 11-08-2021 ambulatory Christin Grullon Other [facility] Other Start: 11-08-2021 Telephone encounter Christin TAN G [facility] [place] Start: 05-01-2021 End: 05-01-2021 ambulatory Christin Grullon Other [facility] Other Start: 05-01-2021 Office outpatient vi sit 15 minutes Christin Grullon [facility] [place] Start: 04-18-2021 Telephone encounter Christin TAN G [facility] [place] Start: 03-20-2021 Office outpatient vi sit 15 minutes Christin Grullon [facility] [place] Start: 08-28-2018 End: 09-20-2018 Patient encounter procedure CHRISTINE Jones [facility] Start: 08-21-2018 End: 08-27-2018 Evaluation and management of inpatient [facility] Procedures Date Procedure Procedure Detail Performing Clinician [...] cervical spin e without contrast DO Christin Alcocerley Work Phone: Start: 09-24-2022 XR pre/post mri xray DO Christin Alcocerley Work Phone: Start: 07-30-2022 MRI of head [...] Date Care Activity Detail Author Start: 06-10-2023 [facility] Start: 06-10-2023 [facility] Start: 05-05-2023 [facility] Adenosine monophosphate.cyclic [Moles/volume] in Serum or Plasma [facility] Work Phone: Patient Education Felter Diagnostic Block [facility] Work Phone: Patient referral [facility] Work Phone: Rheumatoid factor [Units/volume] in Serum or Plasma [facility] Work Phone: Immunizations Immunization Date Immunization Notes Care Provider Delio sevilla 06-26-2023 influenza, injectabl e, quadrivalent, preservative free Isiah Purcell Other [facility] 05-22-2021 COVID-19 mRNA, Comirnaty (Pfizer) DO Christin Grullon Work Phone: [facility] 03-20-2021 Kenalog -40 mg Christin Grullon Other [facility] Other 10-18-2020 COVID-19 Vaccine Pfi zer - Documentation Purposes Only Christin Grullon Other [facility] 09-27-2020 COVID-19 Vaccine Pfi zer - Documentation Purposes Only Christin Grullon Other [facility] 08-24-2018 pneumococcal polysaccharide vaccine, 23 valent Christin Grullon Other [facility] Payers Date Payer Category Payer Unknown 2022 Self-pay [id number] 1970 Unknown [id number] 2.16.84 0.1.951515.3.579.2.593 1969 Unknown [id number] 2.16.84 0.1.369217.3.579.2.593 1969 Unknown [id number] 2.16.84 0.1.759642.3.579.2.593 1969 Unknown [id number] 2.16.84 0.1.587926.3.579.2.593 1969 Unknown [id number] 2.16.84 0.1.434838.3.579.2.593 1969 Unknown [id number] 2.16.84 0.1.591565.3.579.2.593 1969 Unknown [id number] 2.16.84 0.1.309839.3.579.2.593 1969 Unknown [id number] 2.16.84 0.1.861190.3.579.2.593 1969 Unknown [id number] 2.16.84 0.1.302971.3.579.2.593 1969 Unknown [id number] 2.16.84 0.1.461446.3.579.2.593 1969 Unknown [id number] 2.16.84 0.1.167630.3.579.2.593 1969 Unknown [id number] 2.16.84 0.1.102112.3.579.2.593 1969 Unknown [id number] 2.16.84 0.1.718134.3.579.2.593 1969 Unknown [id number] 2.16.84 0.1.611549.3.579.2.593 1969 Unknown [id number] 2.16.84 0.1.227355.3.579.2.593 1969 Unknown [id number] 2.16.84 0.1.354261.3.579.2.593 1969 Unknown [id number] 2.16.84 0.1.024173.3.579.2.593 1969 Unknown [id number] 2.16.84 0.1.890003.3.579.2.593 1969 Unknown [id number] 2.16.84 0.1.867367.3.579.2.593 1969 Unknown [id number] 2.16. 840.1.539876.3.579.2.196 1969 Unknown [id number] 2.16. 840.1.058028.3.579.2.196 1969 Unknown [id number] 2.16. 840.1.312463.3.579.2.196 1969 Unknown [id number] 2.16. 840.1.482726.3.579.2.196 1959 Unknown [id number] 2. 16.840.1.226603.19 Unknown [id number] [employer] [id number] Unknown [id number] Unknown [id number] 2.16.8 40.1.454793.3.579.2.531 Unknown [id number] 2.16.8 40.1.199534.3.579.2.531 Unknown [id number] 2.16.8 40.1.114289.3.579.2.531 Unknown [id number] 2.16.8 40.1.788505.3.579.2.531 Unknown [id number] 2.16.8 40.1.140996.3.579.2.531 Unknown [id number] 2.16.8 40.1.340169.3.579.2.531 Unknown [id number] 2.16.8 40.1.198861.3.579.2.531 Unknown [id number] 2.16.8 40.1.592578.3.579.2.531 Unknown [id number] 2.16.8 40.1.732900.3.579.2.531 Unknown [id number] 2.16.8 40.1.653851.3.579.2.531 Unknown [id number] 2.16.8 40.1.790912.3.579.2.531 Social History Date Type Detail Facility Tobacco smoking status RUST Unknown if ever smoked [facility] Start: 1970 Sex Assigned At Female F [facility] Sex Assigned At Sex Assigned At Bir th [place] [employer] Other Start: 2021 End: 08-17-2023 Tobacco smoking status VTIS Ex-smoker (finding) [facility] Start: 06-01-2023 End: 11-06-2023 Tobacco smoking status VTIS Smoker (finding) [facility] Start: 11-06-2023 Tobacco smoking status RUST Current Light tobacco smoker [facility] Medical Equipment Procedure Code Equipment Code Equipment Origin al Text Equipment Identifier Dates Tendon/ligament bone anchor, bioabsorbable [id number] [facility] Start: 06-10-2023 Goals Date Patient Goal Desired [...] capsulitis of left shoulder (ICD-10 - M75.02) [facility] Other 01-03-2024 Evaluation note* Encounter Date Diagnosis Assessment Notes Treatment Notes Treatment Clinical Notes Jun, Other specified postprocedural states (ICD-10 - Z98.890) [facility] Other 01-02-2024 Evaluation note* Encounter Date Diagnosis [...] capsulitis of left shoulder (ICD-10 - M75.02) [facility] Other 12-28-2023 Evaluation note* Encounter Date Diagnosis Assessment Notes Treatment Notes Treatment Clinical Notes May, Other specified postprocedural states (ICD-10 - Z98.890) [facility] Other 12-19-2023 Evaluation note* Encounter Date Diagnosis Assessment Notes Treatment Notes Treatment Clinical Notes May, Other specified postprocedural states (ICD-10 - Z98.890) [facility] Other 12-05-2023 Evaluation note* Encounter Date Diagnosis [...] note writ ten by Peter Mayo MA, [employer]. Edited and approved by Dr. Christin Mead MD. [facility] Other 12-04-2023 Evaluation note* Encounter Date Diagnosis [...] of left upper extremity (ICD-10 - M75.22) [facility] Other 11-08-2023 Evaluation note* Encounter Date Diagnosis [...] of left acromioclavicular joint (ICD-10 - M19.012) [facility] Other 10-13-2023 Evaluation note* Encounter Date Diagnosis Assessment Notes Treatment Notes Treatment Clinical Notes Mar, Subacromial impingement of left shoulder (ICD-10 - M75.42) [facility] Other 09-26-2023 Evaluation note* Encounter Date Diagnosis [...] note writ ten by Peter Mayo MA, [employer]. Edited and approved by Dr. Christin Mead [...] negative findings were considered in medical decision-making. [facility] Other 09-05-2023 Evaluation note* Encounter Date Diagnosis [...] M19.012) Feb, Neck pain (ICD-10 - M54.2) [facility] Other 06-16-2023 Evaluation note* Encounter Date Diagnosis [...] quit she does not yet have a 56-pdld-royx history and therefore does not qualify for [...] exercises that she can do at home. [facility] Other 04-07-2023 Evaluation note* Encounter Date Diagnosis [...] as documented in the electronic medical record. [facility] Other 01-30-2023 NotePROCEDURE: XR FOOT LT MIN [...] Electronically authenticated by: HUNG ARREDONDO Date: 2022-07-21 12:57[place] [address]-25-2023 Evaluation note* Encounter Date Diagnosis Assessment Notes [...] dental work planned in the near future [facility] Other 01-17-2023 NoteReal-time ultrasound evaluation of the retroareolar and inferior central breast was performed. [facility] [employer] Other 01-09-2023 Evaluation note* Encounter Date Diagnosis Assessment Notes Treatment Notes Treatment Clinical Notes Jun, Abnormal mammogram of right breast (ICD-10 - R92.8) [facility] Other 01-05-2023 NotePROCEDURE: XR FOOT LT MIN [...] Electronically authenticated by: STERLING THOMAS Date: 2022-06-26 07:43[facility]12-07-2022 NotePROCEDURE: XR FOOT LT MIN 3 [...] Electronically authenticated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
--- NOTE | 2024-05-11 14:19 | PM.CN ---
Consult Note: HPI Data of Consult Patient: known to practice within the last 3 years Consult date: 12/14/23 Requesting Physician: Kristen Calhoun NP Primary Care Provider: CHRISTIN GRULLON Consult Narrative Reason for consult: left foot pain Narrative: 54yof who presents for evaluation. longstanding left foot pain, has had multiple surgeries on left foot. states that hand sewer shoes does not believe any further surgeries will help at this point. endorses swelling, color change, temperature change, allodynia in left foot. has tried various conservative measures, including a series of provider directed home exercises for >6 weeks, without benefit. has tried tramadol, lyrica, gabapentin. Patient reporting moderate to significant relief from lyrica 150mg TID with percocet 5-325mg BID PRN and cymbalta 60mg daily. Patient recently underwent left lumbar sympathetic nerve block x2 without improvement as well as left distal sciatic nerve block with no relief. cc:: CC: Kristen Calhoun NP Review of Systems ROS Status of ROS 10 or more systems reviewed and unremarkable except as noted in history and below Musculoskeletal Reports: neck pain and extremity pain PFSH PFSH Medical History (Updated 05/11/24 @ 14:23 by Kristen Calhoun NP) Dyspnea on exertion ?R06.09 - Other forms of dyspnea (ICD-10) Respiratory arrest (2007) ?R09.2 - Respiratory arrest (ICD-10) Pneumonia (2007) ?J18.9 - Pneumonia, unspecified organism (ICD-10) Osteopenia ?M85.80 - Other specified disorders of bone density and structure, unspecified site (ICD-10) Fibromyalgia ?M79.7 - Fibromyalgia (ICD-10) Neck pain ?M54.2 - Cervicalgia (ICD-10) Arthritis ?M19.90 - Unspecified osteoarthritis, unspecified site (ICD-10) Depression ?F32.A - Depression, unspecified (ICD-10) Chronic obstructive pulmonary disease ?J44.9 - Chronic obstructive pulmonary disease, unspecified (ICD-10) Pseudarthrosis after fusion or arthrodesis ?M96.0 - Pseudarthrosis after fusion or arthrodesis (ICD-10) Surgical History History of hysterectomy ?Z90.710 - Acquired absence of both cervix and uterus (ICD-10) H/O foot surgery ?Z98.890 - Other specified postprocedural states (ICD-10) H/O foot surgery ?Z98.890 - Other specified postprocedural states (ICD-10) Family History Other Family history of diabetes mellitus Social History Within the past year, how often did you have a drink containing alcohol: never Score interpretation: A score less than 3 is consistent with normal alcohol consumption. Smoking status: Current every day smoker What tobacco products do you use: cigarettes Packs per day: 1 Years smoked: 24 Smoking pack-years: 24.00 Non-prescribed substance use: denies use Highest level of school completed/degree received: high school graduate Meds Home Medications and Allergies Home Medications ?Medication ?Instructions ?Recorded ?Confirmed ?Type escitalopram oxalate 20 mg tablet 20 mg PO DAILY 11/30/22 05/02/24 History hydroxyzine pamoate 25 mg capsule 25 mg PO Q8H PRN anxiety 11/30/22 05/02/24 History trazodone 50 mg tablet 50 mg PO BEDTIME 11/30/22 05/02/24 History duloxetine 60 mg capsule,delayed 60 mg PO DAILY #30 caps 01/06/24 05/02/24 Rx release (Cymbalta) naloxone 4 mg/actuation nasal 4 mg intranasal Q3M PRN opioid 03/02/24 05/02/24 Rx spray (Narcan) overdose #2 ea oxycodone-acetaminophen 5 mg-325 1 tab PO BID PRN pain #60 tabs 04/01/24 05/02/24 Rx mg tablet (Percocet) pregabalin 150 mg capsule (Lyrica) 150 mg PO TID #90 caps 04/29/24 05/02/24 Rx Allergies Allergy/AdvReac Type Severity Reaction Status Date / Time Penicillins Allergy Severe Unknown Verified 05/02/24 08:01 PENICILLINS Allergy Unknown vomiting Uncoded 02/01/24 07:21 Exam Narrative Exam Narrative: Psych-alert and oriented x 3.? Attentive and appropriate, constitutionally normal, displays normal mood and affect per situation.? There are no obvious deficits in memory, reasoning, or intellect. Examination of the left lower extremity reveals notable hyperpathia and allodynia.? Notable atrophy and diffuse weakness present in the extremity.? There is notable shiny skin with hair loss and abnormal hair growth denoting trophic changes presently.? Asymmetric color and temperature changes are present which denotes sudomotor changes.? Decreased range of motion and strength is noted in the extremity.? Coordination remains intact.? Gait remains non-antalgic. Neck & C-Spine Cervical spine: cervical ROM normal and pain with cervical ROM Assessment and Plan Assessment and Plan (1) Complex regional pain syndrome i of left lower limb: (2) Chronic prescription opiate use: (3) Preop testing: (4) Encounter for fitting and adjustment of spinal cord stimulator: Plan pt would like to proceed with [employer] spinal cord stimulator 2 lead trial for CRPS of LLE. Pt has failed greater than 6 weeks of PT, heat/ice, tylenol/ibuprofen, two lumbar sympathetic blocks and most recently a left distal sciatic nerve block psychiatric evaluation handout provided update thoracic MRI and lumbar MRI without contrast for preop testing/scs fitting continue percocet 5-325mg BID PRN moderate to severe pain continue lyrica 150mg TID continue duloxetine 60mg daily and trazadone 50 HS through PCP smoking cessation advised f/u for Spinal cord stimulator trial
== END 2024-05-11 13:36 | disposition home or self-care (01) ==
LOC: PM 13:35
PROVIDERS: PCP Family Medicine; Visit Provider Nurse Practitioner
DX: Z01.818 Encounter for other preprocedural examination (principal); G90.522 Complex regional pain syndrome I of left lower limb; Z79.891 Long term (current) use of opiate analgesic; Z46.2 Encounter for fitting and adjustment of other devices related to nervous system and special senses
CPT/HCPCS: G0463

== ENCOUNTER 2024-05-24 12:57 | Outpatient (OUT) | payer OTHER, SELFPAY ==
--- NOTE | 2024-05-24 13:12 | XR_ITS ---
The [address] [address] Patient Name: JOSH SOLIS MRN: [id number] date: 1970 Sex: F Assigned Patient Location: [facility] Current Patient Location: Accession/Order Number: [id number] Exam Date: 05/24/2024 13:05 Report Date: 05/26/2024 05:45 At the request of: CINDY RODRIGEZ Procedure: XR foot LT min 3V PROCEDURE: XR foot LT min 3V HISTORY: left foot pain COMPARISON: XR foot left 11/11/2023 FINDINGS: BONES:Prior mechanical fusion of the first, second, third tarsal-metatarsal joints via multiple lag screws. No hardware fracture loosening. No bone fracture dislocation. SOFT TISSUES:No visible soft tissue swelling. EFFUSION:None visible. OTHER: Negative. XR/XR foot LT min 3V IMPRESSION: 1. Stable surgical changes without evidence of hardware failure or change in alignment. Electronically authenticated by: HUNG ARREDONDO Date: 05/26/2024 05:45
== END 2024-05-24 12:58 | disposition home or self-care (01) ==
LOC: RAD 12:58
PROVIDERS: PCP Family Medicine; Visit Provider Podiatrist Foot & Ankle Surgery
DX: M79.672 Pain in left foot (principal); M24.675 Ankylosis, left foot
CPT/HCPCS: 73630

== ENCOUNTER 2024-07-05 12:51 | Outpatient (OUT) | payer OTHER, SELFPAY ==
--- NOTE | 2024-07-05 12:58 | MR_ITS ---
[address] [address] Patient Name: JOSH SOLIS MRN: [id number] date: 1970 Sex: F Assigned Patient Location: MRI Current Patient Location: MRI Accession/Order Number: [id number] Exam Date: 07/05/2024 13:00 Report Date: 07/05/2024 15:49 At the request of: MARQUITA LAU Procedure: MR lumbar spine wo con EXAM: MRI of the thoracic spine without IV contrast. MRI of the lumbar spine without IV contrast. REASON FOR EXAM: Preprocedural Examination COMPARISON: None FINDINGS: T-SPINE: No thoracic spine fractures, acute malalignment or acute abnormal marrow signal. No spinal canal mass, hematoma or fluid collection. No abnormal cord signal. Preserved intervertebral disc heights. No substantial disc protrusions. No substantial spinal canal or neural foraminal stenoses. Midthoracic cord tiny syrinx extending from T5 through T8. L-SPINE: No lumbar spine fractures, acute malalignment or acute abnormal marrow signal. No spinal canal mass, hematoma or fluid collection. Minimal grade 1 retrolisthesis of L4 on L5. Small L4-5 posterior disc protrusion. Preserved intervertebral disc heights. Mild stenosis of the left lateral recess at the L4-5 level. Otherwise, no substantial spinal canal stenoses. Mild left L4-5 neural foraminal stenosis. Mild right L3-L4, L4-5 and L5-S1 neural foraminal stenoses. No other substantial neural foraminal stenoses. Remainder unremarkable. MR/MR lumbar spine wo con IMPRESSION: 1. No acute thoracic or lumbar spine spine abnormalities. 2. No moderate or high-grade spinal canal or neural foraminal stenoses in the thoracic or lumbar spine. 3. Tiny midthoracic cord syrinx. Electronically authenticated by: ANTONIO FORD Date: 07/05/2024 15:49
--- NOTE | 2024-07-05 12:58 | MR_ITS ---
[address] [address] Patient Name: JOSH SOLIS MRN: [id number] date: 1970 Sex: F Assigned Patient Location: MRI Current Patient Location: MRI Accession/Order Number: [id number] Exam Date: 07/05/2024 13:00 Report Date: 07/05/2024 15:49 At the request of: MARQUITA LAU Procedure: MR thoracic spine wo con EXAM: MRI of the thoracic spine without IV contrast. MRI of the lumbar spine without IV contrast. REASON FOR EXAM: Preprocedural Examination COMPARISON: None FINDINGS: T-SPINE: No thoracic spine fractures, acute malalignment or acute abnormal marrow signal. No spinal canal mass, hematoma or fluid collection. No abnormal cord signal. Preserved intervertebral disc heights. No substantial disc protrusions. No substantial spinal canal or neural foraminal stenoses. Midthoracic cord tiny syrinx extending from T5 through T8. L-SPINE: No lumbar spine fractures, acute malalignment or acute abnormal marrow signal. No spinal canal mass, hematoma or fluid collection. Minimal grade 1 retrolisthesis of L4 on L5. Small L4-5 posterior disc protrusion. Preserved intervertebral disc heights. Mild stenosis of the left lateral recess at the L4-5 level. Otherwise, no substantial spinal canal stenoses. Mild left L4-5 neural foraminal stenosis. Mild right L3-L4, L4-5 and L5-S1 neural foraminal stenoses. No other substantial neural foraminal stenoses. Remainder unremarkable. MR/MR thoracic spine wo con IMPRESSION: 1. No acute thoracic or lumbar spine spine abnormalities. 2. No moderate or high-grade spinal canal or neural foraminal stenoses in the thoracic or lumbar spine. 3. Tiny midthoracic cord syrinx. Electronically authenticated by: ANTONIO FORD Date: 07/05/2024 15:49
== END 2024-07-05 12:52 | disposition home or self-care (01) ==
LOC: MRI 12:51
PROVIDERS: PCP Family Medicine; Visit Provider Nurse Practitioner
DX: Z01.818 Encounter for other preprocedural examination (principal); Z45.42 Encounter for adjustment and management of neurostimulator; G95.0 Syringomyelia and syringobulbia
CPT/HCPCS: 72146; 72148

== ENCOUNTER 2024-08-15 11:36 | Outpatient (OUT) | payer OTHER, SELFPAY ==
--- NOTE | 2024-08-15 12:18 | PM.CN ---
Consult Note: HPI Data of Consult Patient: known to practice within the last 3 years Consult date: 08/15/24 Requesting Physician: Damien Pastrana MD Primary Care Provider: CHRISTIN GRULLON Consult Narrative Reason for consult: low back pain Narrative: 54yof who presents for assessment. stim trial was denied by insurance, despite failure of other options. continues to use pain meds, which provide benefit. denies adverse med side effects. cc:: CC: Damien Pastrana MD Review of Systems ROS Status of ROS 10 or more systems reviewed and unremarkable except as noted in history and below [facility] Medical History Dyspnea on exertion ?R06.09 - Other forms of dyspnea (ICD-10) Respiratory arrest (2007) ?R09.2 - Respiratory arrest (ICD-10) Pneumonia (2007) ?J18.9 - Pneumonia, unspecified organism (ICD-10) Osteopenia ?M85.80 - Other specified disorders of bone density and structure, unspecified site (ICD-10) Fibromyalgia ?M79.7 - Fibromyalgia (ICD-10) Neck pain ?M54.2 - Cervicalgia (ICD-10) Arthritis ?M19.90 - Unspecified osteoarthritis, unspecified site (ICD-10) Depression ?F32.A - Depression, unspecified (ICD-10) Chronic obstructive pulmonary disease ?J44.9 - Chronic obstructive pulmonary disease, unspecified (ICD-10) Pseudarthrosis after fusion or arthrodesis ?M96.0 - Pseudarthrosis after fusion or arthrodesis (ICD-10) Surgical History History of hysterectomy ?Z90.710 - Acquired absence of both cervix and uterus (ICD-10) H/O foot surgery ?Z98.890 - Other specified postprocedural states (ICD-10) H/O foot surgery ?Z98.890 - Other specified postprocedural states (ICD-10) Family History Other Family history of diabetes mellitus Social History Within the past year, how often did you have a drink containing alcohol: never Score interpretation: A score less than 3 is consistent with normal alcohol consumption. Smoking status: Current every day smoker What tobacco products do you use: cigarettes Packs per day: 1 Years smoked: 24 Smoking pack-years: 24.00 Non-prescribed substance use: denies use Highest level of school completed/degree received: high school graduate Meds Home Medications and Allergies Home Medications ?Medication ?Instructions ?Recorded ?Confirmed ?Type escitalopram oxalate 20 mg tablet 20 mg PO DAILY 11/30/22 05/02/24 History hydroxyzine pamoate 25 mg capsule 25 mg PO Q8H PRN anxiety 11/30/22 05/02/24 History trazodone 50 mg tablet 50 mg PO BEDTIME 11/30/22 05/02/24 History duloxetine 60 mg capsule,delayed 60 mg PO DAILY #30 caps 01/06/24 05/02/24 Rx release (Cymbalta) naloxone 4 mg/actuation nasal 4 mg intranasal Q3M PRN opioid 03/02/24 05/02/24 Rx spray (Narcan) overdose #2 ea oxycodone-acetaminophen 5 mg-325 1 tab PO BID PRN pain #60 tabs 04/01/24 05/02/24 Rx mg tablet (Percocet) pregabalin 150 mg capsule (Lyrica) 150 mg PO TID #90 caps 04/29/24 05/02/24 Rx oxycodone-acetaminophen 5 mg-325 1 tab PO BID PRN pain #60 tabs 06/03/24 Rx mg tablet (Percocet) oxycodone-acetaminophen 5 mg-325 1 tab PO BID PRN pain #60 tabs 06/03/24 Rx mg tablet (Percocet) oxycodone-acetaminophen 5 mg-325 1 tab PO BID PRN pain #60 tabs 07/05/24 Rx mg tablet (Percocet) oxycodone-acetaminophen 5 mg-325 1 tab PO BID PRN pain #60 tabs 07/06/24 Rx mg tablet (Percocet) oxycodone-acetaminophen 5 mg-325 1 tab PO BID PRN pain #60 tabs 08/05/24 Rx mg tablet (Percocet) pregabalin 150 mg capsule (Lyrica) 150 mg PO TID #90 caps 08/05/24 Rx Allergies Allergy/AdvReac Type Severity Reaction Status Date / Time Penicillins Allergy Severe Unknown Verified 05/02/24 08:01 PENICILLINS Allergy Unknown vomiting Uncoded 02/01/24 07:21 Exam Narrative Exam Narrative: Psych-alert and oriented x 3. Attentive and appropriate, constitutionally normal, displays normal mood and affect per situation.? There are no obvious deficits in memory, reasoning, or intellect.? Skin-no obvious rashes, bruising, erythema noted to the patient's area of pain. Extremities- extremities are warm with minimal edema and palpable pulses. Lumbar-no significant tenderness to palpation noted in the lumbar spine and paraspinal musculature.? Pain is elicited with extension, and lateral rotation of the lumbar spine. Range of motion is slightly diminished with these motions due to pain. Coordination remains intact.? Gait remains non-antalgic. Assessment and Plan Assessment and Plan (1) Complex regional pain syndrome i of left lower limb: (2) Lumbar stenosis with neurogenic claudication: Plan 54yof who presents for assessment. failed conservative measures. discussed that would have to hold on scs trial for now, given insurance. she expressed understanding. meds reviewed. will continue percocet and lyrica. discussed that she may benefit from thoracic dmrs/rfa at some point in the future, given multilevel degenerative changes. follow up in 3 months.
== END 2024-08-15 11:37 | disposition home or self-care (01) ==
LOC: PM 11:36
PROVIDERS: PCP Family Medicine; Visit Provider Anesthesiology
DX: G90.522 Complex regional pain syndrome I of left lower limb (principal); M48.062 Spinal stenosis, lumbar region with neurogenic claudication
CPT/HCPCS: G0463

== ENCOUNTER 2024-11-16 12:48 | Outpatient (OUT) | payer OTHER, SELFPAY ==
--- NOTE | 2024-11-16 13:06 | PM.CN ---
Consult Note: HPI Data of Consult Patient: known to practice within the last 3 years Consult date: 12/14/23 Requesting Physician: Kristen Calhoun NP Primary Care Provider: CHRISTIN GRULLON Consult Narrative Reason for consult: low back and left foot pain Narrative: 54yof who presents for evaluation. longstanding low back and left foot pain, has had multiple surgeries on left foot. states that financial adviser does not believe any further surgeries will help at this point. endorses swelling, color change, temperature change, allodynia in left foot. has tried various conservative measures, including a series of provider directed home exercises for >6 weeks, without benefit. has tried tramadol, lyrica, gabapentin. Patient reporting moderate to significant relief from lyrica 150mg TID with percocet 5-325mg BID PRN and cymbalta 60mg daily. Patient recently underwent left lumbar sympathetic nerve block x2 without improvement as well as left distal sciatic nerve block with no relief scs trial was denied by insurance as she had not completed 6 months fo PT for CRPS. pt inquiring today about additional interventions to improve quality of life and provide pain relief for low back and LLE pain. cc:: CC: Kristen Calhoun NP Review of Systems ROS Status of ROS 10 or more systems reviewed and unremarkable except as noted in history and below Musculoskeletal Reports: back pain and extremity pain PFSH PFSH Medical History Dyspnea on exertion ?R06.09 - Other forms of dyspnea (ICD-10) Respiratory arrest (2007) ?R09.2 - Respiratory arrest (ICD-10) Pneumonia (2007) ?J18.9 - Pneumonia, unspecified organism (ICD-10) Osteopenia ?M85.80 - Other specified disorders of bone density and structure, unspecified site (ICD-10) Fibromyalgia ?M79.7 - Fibromyalgia (ICD-10) Neck pain ?M54.2 - Cervicalgia (ICD-10) Arthritis ?M19.90 - Unspecified osteoarthritis, unspecified site (ICD-10) Depression ?F32.A - Depression, unspecified (ICD-10) Chronic obstructive pulmonary disease ?J44.9 - Chronic obstructive pulmonary disease, unspecified (ICD-10) Pseudarthrosis after fusion or arthrodesis ?M96.0 - Pseudarthrosis after fusion or arthrodesis (ICD-10) Surgical History History of hysterectomy ?Z90.710 - Acquired absence of both cervix and uterus (ICD-10) H/O foot surgery ?Z98.890 - Other specified postprocedural states (ICD-10) H/O foot surgery ?Z98.890 - Other specified postprocedural states (ICD-10) Family History Other Family history of diabetes mellitus Social History Within the past year, how often did you have a drink containing alcohol: never Score interpretation: A score less than 3 is consistent with normal alcohol consumption. Smoking status: Current every day smoker What tobacco products do you use: cigarettes Packs per day: 1 Years smoked: 24 Smoking pack-years: 24.00 Non-prescribed substance use: denies use Highest level of school completed/degree received: high school graduate Meds Home Medications and Allergies Home Medications ?Medication ?Instructions ?Recorded ?Confirmed ?Type escitalopram oxalate 20 mg tablet 20 mg PO DAILY 11/30/22 05/02/24 History hydroxyzine pamoate 25 mg capsule 25 mg PO Q8H PRN anxiety 11/30/22 05/02/24 History trazodone 50 mg tablet 50 mg PO BEDTIME 11/30/22 05/02/24 History duloxetine 60 mg capsule,delayed 60 mg PO DAILY #30 caps 01/06/24 05/02/24 Rx release (Cymbalta) naloxone 4 mg/actuation nasal 4 mg intranasal Q3M PRN opioid 03/02/24 05/02/24 Rx spray (Narcan) overdose #2 ea oxycodone-acetaminophen 5 mg-325 1 tab PO BID PRN pain #60 tabs 09/08/24 Rx mg tablet (Percocet) pregabalin 150 mg capsule (Lyrica) 150 mg PO TID #90 caps 09/08/24 Rx oxycodone-acetaminophen 5 mg-325 1 tab PO BID PRN pain #60 tabs 09/30/24 Rx mg tablet (Percocet) Allergies Allergy/AdvReac Type Severity Reaction Status Date / Time Penicillins Allergy Severe Unknown Verified 05/02/24 08:01 PENICILLINS Allergy Unknown vomiting Uncoded 02/01/24 07:21 Exam Narrative Exam Narrative: Psych-alert and oriented x 3.? Attentive and appropriate, constitutionally normal, displays normal mood and affect per situation.? There are no obvious deficits in memory, reasoning, or intellect. Examination of the left lower extremity reveals notable hyperpathia and allodynia.? Notable atrophy and diffuse weakness present in the extremity.? There is notable shiny skin with hair loss and abnormal hair growth denoting trophic changes presently.? Asymmetric color and temperature changes are present which denotes sudomotor changes.? Decreased range of motion and strength is noted in the extremity.? Coordination remains intact.? Gait remains non-antalgic. Constitutional Documenting provider has reviewed patient's vital signs: yes Common normals: no apparent distress, oriented x3, healthy appearing, alert and well nourished General appearance: cooperative HENMT Common normals: normocephalic, hearing grossly normal bilaterally and moist oral mucous membranes Head and scalp: normocephalic Eye Common normals: PERRL Pupil: PERRL Neck & C-Spine Common normals: full ROM General: normal visual inspection Chest Common normals: inspection of chest normal Respiratory Common normals: normal respiratory effort, no retractions and no use of accessory muscles Back & Pelvis Lumbar spine/lower back: ROM limited, pain with ROM, lumbar spinal tenderness and straight leg raise positive right Other: positive left SLR, decreased sensation left L4,5,S1 Neuro Common normals: oriented x3 Sensorium/orientation: alert Psych Common normals: mental status grossly normal, thought process normal, cooperative, affect normal, speech normal and activity/motor behavior normal Speech: normal speech Thought process: normal thought process Results Additional Findings Additional findings: If on a controlled substance or opioids, I have checked an [place] report on this patient and there are no aberrancies noted in the prescribing history.??If on a controlled substance or opioid a drug screen was completed and reviewed within the last year, and if there has not been a drug screen completed we ordered one today to monitor higher risk, state monitored pain medication use. As part of providing excellent, safe, comprehensive care, the following was completed at our patient's visit: 1. A medication reconciliation and review to ensure accurate knowledge of current/active medications, including asking our patients to inform us about any [id number] medications or herbal remedies/nutritional supplements/alternative remedies. 2. A review to specifically ensure our patients have had annual screening for screening for depression, screening for tobacco use, and screening for unhealthy alcohol use. For concerning screenings had a discussion with the patient, provided patient education, and recommended follow-up with primary care provider when appropriate. If patient noted with a risk of falling, they received education on strength, gait, and balance training to prevent future risk of falling. Portions of this note may have been carried over from the previous visit and updated as appropriate. Please note this office utilizes paper charting in addition to the electronic medical record. A list of current medications, vitals, and PMH is available there as the clinical staff outside of myself do not have access to [employer] charting during the clinic day operations. As part of providing quality comprehensive care the current medications, vitals, and PMH were reviewed in the paper chart. Assessment and Plan Assessment and Plan (1) Lumbar stenosis with neurogenic claudication: Assessment and Plan: The patient has had over 3 months of moderate to severe low back and LLE pain with functional impairment and inadequate response to conservative care including NSAIDS (unless there are contraindication such as concurrent blood thinners), multiple oral or topical pain medications, and home exercise program/physical therapy.? Patient has completed >6 weeks of guided home exercise program and/or formal physical therapy program without relief of their symptoms.? I have reviewed the imaging of the lumbar spine and no red flags were identified.? The imaging reveals radiographic findings consistent with lumbar stenosis with NC The Oswestry Disability Index was completed, and the patient scored a 52%.? The patient noted the following:?? moderate to severe pain impacting ADLs, sleep, social life, travel, sitting, standing, walking We discussed the risks and benefits of the procedure with the patient, and we are NOT planning on using sedation as outlined in the guidelines from Medicare unless there is a documented reason that sedation would be strongly recommended.?? ?The procedure will be completed with fluoroscopic guidance.? (2) Complex regional pain syndrome i of left lower limb: (3) Chronic prescription opiate use: Plan left L4-5 L5-S1 TFESI under fluoroscopy declining additional PT for CRPS continue current medications, risks vs benefits reviewed continue HEP as tolerated f/u 2 weeks after TFESI
== END 2024-11-16 12:49 | disposition home or self-care (01) ==
PROVIDERS: PCP Family Medicine; Visit Provider Nurse Practitioner
DX: M48.062 Spinal stenosis, lumbar region with neurogenic claudication (principal); G90.522 Complex regional pain syndrome I of left lower limb; Z79.891 Long term (current) use of opiate analgesic
CPT/HCPCS: G0463

== ENCOUNTER 2025-01-23 09:46 | Day surgery (SDC) | payer OTHER, SELFPAY ==
[2025-01-23 09:50] VITALS: BP 120/73; PULSE 69; TEMP 36.2; O2SAT 99
[2025-01-23 10:38] VITALS: BP 133/64; PULSE 62; O2SAT 98
[2025-01-23 10:39] VITALS: PULSE 60; O2SAT 94
[2025-01-23 10:42] VITALS: BP 123/64
[2025-01-23] MEDS: 0.9 % SODIUM CHLORIDE 10 ML SYRINGE - SALINE FLUSH INJ (10:43)
[2025-01-23] MEDS: BUPIVACAINE HCL 0.25% PF 25 MG/10 ML VIAL INJ (10:43)
--- NOTE | 2025-01-23 10:43 | P.ON_ITS ---
Date of procedure: 01/23/25 Pre-op diagnosis: Pain due to lumbar stenosis with neurogenic claudication Post-op diagnosis: same as pre-op Procedure: Procedure: Left L4-5, L5-S1 transforaminal epidural steroid injection Medications: Bupivacaine 0.25% 2cc, lidocaine 2% 1cc, depomedrol 80mg The patient was seen and examined in the preoperative holding area.? Informed consent was obtained and placed on the chart.? Patient was brought to the medical procedure unit and placed in the prone position where a timeout was completed verifying the correct patient, procedure site, position, and planned special equipment using sterile aseptic technique.? Under direct fluoroscopic visualization a 25-gauge Quincke tipped spinal needle was advanced to the designated neural foramen where contrast dye was injected to show adequate spread.? The needle was inserted at level left L4-5. There was no evidence of vascular or adverse uptake.? Epidural spread was appreciated.? The above- mentioned injectate was then placed in a 1.5 mL aliquot preceded by negative aspiration.? The needle was removed. The needle was inserted and the procedure repeated at level left L5-S1.? The surgery site was covered.? Patient was taken to the postprocedural recovery area and monitored for an appropriate length of time before found suitable for discharge in the accompaniment of a responsible adult. Anesthesia: Local Surgeon: Damien Pastrana Pathology: none sent Condition: stable Disposition: no change
[2025-01-23] MEDS: METHYLPREDNISOLONE ACETATE 80 MG/ML VIAL INJ (10:44)
[2025-01-23] MEDS: IOHEXOL 240 MG/ML - 10 ML VIAL 24 MG INJ (10:44)
[2025-01-23] MEDS: LIDOCAINE HCL 2% 400 MG/20 ML MDV 3 ML INJ (10:44)
== END 2025-01-23 10:47 | disposition home or self-care (01) ==
LOC: SURGOUT 09:47
PROVIDERS: PCP Family Medicine; Visit Provider Anesthesiology
DX: M48.062 Spinal stenosis, lumbar region with neurogenic claudication (principal); M54.50 Low back pain, unspecified
CPT/HCPCS: 64483; 64484; J0665; J1010; Q9966

== ENCOUNTER 2025-02-09 11:35 | Outpatient (OUT) | payer OTHER, SELFPAY ==
--- OUTSIDE RECORDS SUMMARY | 2024-04-12 09:15 | XMS_ITS ---
Author Organization [facility] [place] Address [address] [place] [address] Care Team Providers Care Agricultural Technician Name Role Phone Robinson Davalos DO Primary Care Provider Erik Kay [phone] REASON FOR VISIT 3 month f/u Encounters Encounter Location Date Provider Diagnosis [facility] (PODIATRY) [address] [place] [address] [place] [address] 04/12/2024 Erik Clark Left foot pain M79.672 Assessments Encounter Date Diagnosis (ICD Code) Assessment Notes Treatment Notes Treatment Clinical Notes Section Notes 04/12/2024 Left foot pain (ICD-10 - M79.672) Plan Of Treatment Pending Test Test Name Order Date XR Foot LT (3 views) * 04/12/2024 Progress Notes * JAS KarenDOB:1970 (54 yo F)Acc No.[id number]:04/12/2024 UNLOCKED PROGRESS NOTE Follow Up Patient: Karen ROSENTHAL Provider: Danilo Clark DPM MS :1970 A ge:53 Y S ex:Female Date:04/12/2024 Address:[address] [id number] Pcp:Robinson Davalos DO Subjective: * Chief Complaints: * 1 . 3 month f/u. * Medical History: Objective: * Vitals: Assessment: * Assessment: 1. L eft foot pain - M79.672 Plan: * Treatment: * * Electronic signature of Braden Clark DPM on 02/09/2025 at 11:37 AM EDT Sign off status: Pending Visit Status: C ANC (Cancelled) * Provider: Danilo Clark DPM, MS Date: 1 Generated for Monster pete/Zora/Kevin on: 0 02/09/2025 11:37 AM EDT
--- OUTSIDE RECORDS SUMMARY | 2024-05-24 09:30 | XMS_ITS ---
Author Organization [facility] [place] Address [address] [place] [address] Care Team Providers Care Sales Support Advisor Name Role Phone Robinson Davalos DO Primary Care Provider Erik Kay [phone] Allergies Allergen (clinical drug ingredient) Drug/Non Drug Allergy documented on EMR Reaction Allergy Type Onset Date Status Penicillin Unknown Drug Allergy Active REASON FOR VISIT 3 month f/u Medications Medication SIG (Take, Route, Frequency, Duration) Notes Start Date End Date Status Lyrica Unknown Vistaril Unknown Lexapro Unknown oxyCODONE-Acetaminophen 5-325 MG 1 tablet as needed Orally every 6 hrs 05/24/2024 Active HYDROcodone-Acetaminophen 5-325 MG 1 tablet as needed Orally every 6 hrs for 7 days 10/14/2023 Unknown Fosamax Unknown Social History Tobacco Use: Social History Observation Description Date Details (start date - stop date) Current Smoker NA - NA Tobacco Use/Smoking Question Answer Notes Patient is a current smoker Vital Signs Temperature 98.2 degrees Fahrenheit 05/24/20 24 Heart Rate 72 /min 05/24/2024 Height 66 in 05/24/2024 Oximetry 98 % 05/24/2024 Encounters Encounter Location Date Provider Diagnosis [facility] (PODIATRY) [address] [place] [address] [place] [address] 05/24/2024 Erik Clark Pseudarthrosis after fusion or arthrodesis M96.0 ; Fibromyalgia M79.7 ; Disuse osteoporosis M81.8 and Left foot pain M79.672 Assessments Encounter Date Diagnosis (ICD Code) Assessment Notes Treatment Notes Treatment Clinical Notes Section Notes 05/24/2024 Pseudarthrosis after fusion or arthrodesis (ICD-10 - M96.0) Radiographically patient continues to show signs of healing and stability. I encouraged her to follow-up with Dr. Tyler for osteoporosis. She is continuing to follow-up with pain management and may be a candidate for a spinal cord stimulator. From an orthopedic perspective I have no restrictions for her and she may continue to increase her activities as she tolerates. She will follow-up in 3 months or as needed with weightbearing foot x-rays 05/24/2024 Fibromyalgia (ICD-10 - M79.7) 05/24/2024 Disuse osteoporosis (ICD-10 - M81.8) 05/24/2024 Left foot pain (ICD-10 - M79.672) Plan Of Treatment Treatment Notes Assessment Notes Pseudarthrosis after fusion or arthrodes is Radiographically patient continues to show signs of healing and stability. I encouraged her to follow-up with Dr. Tyler for osteoporosis. She is continuing to follow-up with pain management and may be a candidate for a spinal cord stimulator. From an orthopedic perspective I have no restrictions for her and she may continue to increase her activities as she tolerates. She will follow-up in 3 months or as needed with weightbearing foot x-rays Pending Test Test Name Order Date XR Foot LT (3 views) * 05/24/2024 Progress Notes * Karen MARKDOB:1970 (54 yo F)Acc No.[id number]:05/24/2024 Follow Up Patient: Karen ROSENTHAL Provider: Danilo Clark DPM, MS :1970 A ge:54 Y S ex:Female Date:05/24/2024 Address:[address] [place] [address], [place], [id number] Pcp:Robinson Davalos, DO Check In:01:32 PM ESTCheck O ut:02:11 PM EST Subjective: * Chief Complaints: * 3 month f/u * HPI: G eneral: Patient in office today for 3 month f/u. She underwent L eft 1st , 2nd , 3rd TMTJ arthrodesis DOS 7/13/23. Patient is currently seeing pain management for the last 3 months. She states she has been recieving blocks in her neck and back and they are not helping. Pain manangement did prescribe her percocet, which she states does help take away her pain. She has had 1 fall since her last visit with us. She rates her pain today 6/10. Her pain is located across her distal metatarsals and lateral foot. She has not been evaluated for osteoporosis management. * Active Problem List M79.672 Left foot pain Modified On:01/22/2023/U Status:confirmed M79.7 Fibromyalgia Modified On:12/09/2022U Status:confirmed M19.079 Arthritis, midfoot Modified On:05/07/2023U Status:confirmed M81.8 Disuse osteoporosis Modified On:09/29/2023U Status:confirmed T84.9XXS Unspecified complica tion of internal orthopedic prosthetic device, implant and graft, sequela Modified On:12/09/2022U Status:confirmed M96.0 Pseudarthrosis after fusion or arthrodesis Modified On:09/29/2023U Status:confirmed F41.1 ZACHARY (generalized anx iety disorder) Modified On:01/09/2023U Status:confirmed M19.072 Osteoarthritis of an kle or foot, left Modified On:02/09/2023U Status:confirmed Z96.9 Retained orthopedic hardware Modified On:01/14/2023U Status:confirmed T84.84XA Painful orthopaedic hardware Modified On:09/29/2023U Status:confirmed M19.072 Arthritis of left fo ot Modified On:09/29/2023U Status:confirmed I63.9 CVA (cerebral vascul ar accident) Modified On:04/08/2023/U Status:confirmed * Medical History: * Surgical History: r emoval of hardware 07/21/22left excision of nonuniton 1st tarsometatarsal joint with removal of retained hardware and revision of 1st tarsometarsal joint fusion 01/01/2023 * Hospitalization/Major Diagno stic Procedure: N o Hospitalization History. * Family History: will not disclose. * Social History: T obacco Use: T obacco Use/Smoking P atient is a c urrent smoker * Medications: T akingoxyCODONE-Acetaminophen 5-325 MG Tablet 1 tablet as needed Orally every 6 hrs Taking oxyCODONE-Acetaminophen 5-325 MG Tablet 1 tablet as needed Orally every 6 hrs UnknownFosamax HYDROcodone-Acetaminophen 5-325 MG Tablet 1 tablet as needed Orally every 6 hrs Lexapro Lyrica Vistaril Unknown Fosamax Unknown HYDROcodone- Acetaminophen 5-325 MG Tablet 1 tablet as needed Orally every 6 hrs Unknown Lexapro Unknown Lyrica Unknown Vistaril * Allergies: P enicillin: Allergyno[Allergies Verified] Objective: * Vitals: H t: 66 in, Temp:98.2F, HR:72/min, Pain scale:61-10, Oxygen sat %:98%, Ht-cm: 167.64 cm. * Examination: P odiatry Examination: SKIN: s kin intact, n o sign of infection. MUSCULOSKELETAL: N o deformity in the foot. Range of motion of the lesser MPJs is reduced and is slightly tender.. NEUROLOGICAL: l ight touch sensation intact, n egative tinel's sign. VASCULAR: P edal pulses palpable, C apillaryrefill is brisk to toe, no swelling. X -rays: x-rays were obtained & reviewed in my office. There is osseous fusion across the first second and third tarsometatarsal joints with stable fixation and no change in alignment. Assessment: * Assessment: 1. P seudarthrosis after fusion or arthrodesis - M96.0 (Primary) 2 . F ibromyalgia - M79.7 3 . D isuse osteoporosis - M81.8 4 . L eft foot pain - M79.672 Plan: * Treatment: 2. L eft foot pain I maging: XR Foot LT (3 views) * * Procedure Codes: * * Sign off status: Completed Visit Status: C HK (Check Out) true * Provider: Danilo Clark DPM, MS Date: 07/25/2023 Generated for Monster pete/Zora/Katharinaitting on: 0 02/09/2025 11:38 AM EDT History and Physical Notes * HPI (History of Present Illness) Category Sub-Category Detail Notes Category Not es General Patient in offi ce today for 3 month f/u. She underwent Left 1st , 2nd , 3rd TMTJ arthrodesis DOS 01/01/23. Patient is currently seeing pain management for the last 3 months. She states she has been recieving blocks in her neck and back and they are not helping. Pain manangement did prescribe her percocet, which she states does help take away her pain. She has had 1 fall since her last visit with us. She rates her pain today 6/10. Her pain is located across her distal metatarsals and lateral foot. She has not been evaluated for osteoporosis management Examination Category Sub-Category Detail Notes Category Not es Podiatry Examination SKIN: skin intact, no sign of infection X-ray s: x-rays were obtained & reviewed in my office. There is osseous fusion across the first second and third tarsometatarsal joints with stable fixation and no change in alignment MUSCULOSKELETAL: No deformity in the foot. Range of motion of the lesser MPJs is reduced and is slightly tender. NEUROLOGICAL: light touch sensatio n intact, negative tinel's sign VASCULAR: Pedal pulses palpable, Capillary refill is brisk to toe, no swelling
--- OUTSIDE RECORDS SUMMARY | 2025-02-09 11:37 | XMS_ITS | Clinical Summary ---
Author Organization [employer] [facility] tem Address [id number] [address] [place] [address] Care Team Providers Care Content Writer Name Role Phone Robinson Davalos DO Primary Care Provider [phone] Social History Tobacco Use Types Packs/Day Years Used Date Smoking Tobacco: Never Assessed Comments Unknown Sex and Gender Information Value Date Recorded Sex Assigned at Not on file Legal Sex Female 6:33 PM EDT Gender Identity Not on file Sexual Orientation Not on file Plan of Treatment Health Maintenance Due Date Last Done Comments Depression Screening 1981 Tobacco Screening 1981 Adult BMI Screening 1987 DTaP,Tdap and Td Vaccines (1 - Tdap) 1988 Pap Smear 1990 Zoster (Shingles) Vaccine (1 of 2) 2019 COVID-19 Vaccine (2023-2 5 season) 2024 05/22/2021, 10/18/2020, 09/27/2020 Influenza Vaccine 02/20/2025 08/23/2018 Medical Devices Not on file Insurance [place] [employer] Care Teams Content Writer Relationship Specialty Start Date End Date Robinson Davalos DO PCP - General Family Medicine 03/09/23
--- OUTSIDE RECORDS SUMMARY | 2025-02-09 11:37 | XMS_ITS | Encounter Summary ---
Author Organization [facility] tem Address [id number] [place] [address] Care Team Providers Care Tape Librarian Name Role Phone Robinson Davalos DO Primary Care Provider Encounter Details Date Type Department Care Team (Late st Contact Info) Description 03/07/2023 Orders Only [facility] [employer] [facility] [place] [address] External, Scanning Provider Pain (Primary Dx) Social History Tobacco Use Types Packs/Day Years Used Date Smoking Tobacco: Never Assessed Comments Unknown Sex and Gender Information Value Date Recorded Sex Assigned at Not on file Legal Sex Female 6:33 PM EDT Gender Identity Not on file Sexual Orientation Not on file documented as of this encounter Plan of Treatment Not on file documented as of this encounter Results * CT angiogram head (03/07/2023 5:40 PM EDT) us Scanning Provider External IMG CT ORDERABLES Fin al Result * CT brain without contrast stroke alert (03/07/2023 5:30 PM EDT) us Scanning Provider External IMG CT ORDERABLES Fin al Result documented in this encounter Visit Diagnoses Diagnosis Pain- Primary Generalized pain documented in this encounter Care Teams Tape Librarian Relationship Specialty Start Date End Date Robinson Davalos DO PCP - General Family Medicine 03/09/23 documented as of this encounter
--- OUTSIDE RECORDS SUMMARY | 2025-02-09 11:38 | XMS_ITS | Patient Health Record ---
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 Ordering Physician: Cindy Clark D.P.M. Date of Service: 05/24/24 Procedure(s): XR foot LT min 3V Accession Number(s): [id number] cc: ROBINSON GRULLON; Cindy Clark D.P.M. [place] [id number] Patient Name: KAREN MARK MRN: [id number] date: 1970 Sex: F Assigned Patient Location: RAD Current Patient Location: Accession/Order Number: [id number] Exam Date: 05/24/2024 13:05 Report Date: 05/26/2024 05:45 At the request of: CINDY CLARK Procedure: XR foot LT min 3V PROCEDURE: XR foot LT min 3V HISTORY: left foot pain COMPARISON: XR foot left 11/11/2023 FINDINGS: BONES:Prior mechanical fusion of the first, second, third tarsal-metatarsal joints via multiple lag screws. No hardware fracture loosening. No bone fracture dislocation. SOFT TISSUES:No visible soft tissue swelling. EFFUSION:None visible. OTHER: Negative. XR/XR foot LT min 3V IMPRESSION: 1. Stable surgical changes without evidence of hardware failure or change in alignment. Electronically authenticated by: DREW BLACKMAN Date: 05/26/2024 05:45 Dictated By: Drew Blackman M.D. 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 Ordering Physician: Cindy Clark D.P.M. Date of Service: 05/24/24 Procedure(s): XR foot LT min 3V Accession Number(s): [id number] cc: ROBINSON GRULLON; Cindy Clark D.P.M. The [place] [address] Patient Name: KAREN MARK MRN: [id number] date: 1970 Sex: F Assigned Patient Location: RAD Current Patient Location: Accession/Order Numb er: [id number] Exam Date: 13:05 Report Date: 05/26/2024 05:45 At the request of: CINDY CLARK Procedure: XR foot LT min 3V PROCEDURE: XR foot LT min 3V HISTORY: left foot pain COMPARISON: XR foot left 11/11/2023 FINDINGS: BONES:Prior mechanical test technician al fusion of the first, second, third tarsal-metatarsal joints via multiple lag screws. No hardware fracture loosening. No bone fracture dislocation. SOFT TISSUES:No visi ble soft tissue swelling. EFFUSION:None visible. OTHER: Negative. X R/XR foot LT min 3V IMPRESSION: 1. Stable surgical c hanges without evidence of hardware failure or change in alignment. Electronically authe nticated by: DREW BLACKMAN Date: 05/26/2024 05:45 Dictated By: Drew Blackman M.D. Signed By: 05/26/24546 DD/ 4 TD/TT: Structural Metal Worker: Reason For Referral No Information Medications Medication SIG (Take, Route, Frequency, Duration) Notes Start Date End Date Status Lyrica Unknown Vistaril Unknown Lexapro Unknown Fosamax Unknown oxyCODONE-Acetaminophen 5-325 MG 1 tablet as needed Orally every 6 hrs 05/24/2024 Active HYDROcodone-Acetaminophen 5-325 MG 1 tablet as needed Orally every 6 hrs for 7 days 10/14/2023 Unknown Social History Tobacco Use: Social History Observation Description Date Details (start date - stop date) Current Smoker NA - NA Tobacco Use/Smoking Question Answer Notes Patient is a current smoker Problems Problem Type SNOMED Code ICD Code Onset Dates Problem Status W/U Status Risk Notes Problem 073225659 Fibromyalgia (M79.7) Active confirmed Problem 965428636 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) Active confirmed Problem 2888130 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, implant and graft, sequela (T84.9XXS) Active confirmed Problem CVA - Cerebrovascular accident (363535258) CVA (cerebral vascular accident) (I63.9) Active confirmed Problem Generalized anxiety disorder (92253658) ZACHARY (generalized anxiety disorder) (F41.1) Active confirmed Problem Orthopedic hardware in situ (finding) (609864495) Retained orthopedic hardware (Z96.9) Active confirmed Problem 630399256105944 Left foot pain (M79.672) Active confirmed Problem Localized, primary osteoarthritis of the ankle and/or foot (627396109) Osteoarthritis of ankle or foot, left (M19.072) Active confirmed Problem 89859082 Painful orthopaedic hardware (T84.84XA) Active confirmed Problem 93111319 Disuse 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) Active confirmed Problem Arthritis of left foot (6852457222702445) Arthritis of left foot (M19.072) Active confirmed Problem 737232537 Arthritis, 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) Active confirmed Vital Signs Heart Rate 72 /min 05/24/2024 Temperature 98.2 degrees Fahrenheit 05/24/2024 Oximetry 98 % 05/24/2024 Height 66 in 05/24/2024 Encounters Encounter Location Date Provider Diagnosis [facility] ([facility]) [address] [place] [address] [place] [address] 05/24/2024 Cindy Clark Pseudarthrosis after fusion or arthrodesis M96.0 ; Fibromyalgia M79.7 ; Disuse osteoporosis M81.8 and Left foot pain M79.672 [facility] ([facility]OD[facility]) [address] [place] [address] [place] [address] 05/10/2024 Cindy Clark Left foot pain M79.672 Assessments Encounter Date Diagnosis (ICD Code) Assessment Notes Treatment Notes Treatment Clinical Notes Section Notes 05/10/2024 Left foot pain (ICD-10 - M79.672) 05/24/2024 Pseudarthrosis after fusion or arthrodesis (ICD-10 [...] XR Foot LT (3 views) * 05/10/2024 XR Foot LT (3 views) * 05/24/2024 XR foot LT min 3V 05/26/2024 Insurance Providers Payer Name Payer Address Payer Phone Subscriber Number Group Number Insured Name Patient Relationship to Insured Coverage Start Date Coverage End Date [employer] [place] [employer] [address] 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
--- OUTSIDE RECORDS SUMMARY | 2025-02-09 11:38 | XMS_ITS | Clinical Summary ---
Author Organization [facility] Healthcare Address [address] [place] [address] Care Team Providers Care Cloth Examiner Hand Name Role Phone Unavailable Primary Care Provider Unavailabl e Allergies Active Allergy Reactions Criticality Noted Date Comments Penicillin G Unknown 01/21/2024 Medications oxyCODONE-aceta minophen (Percocet) 5-325 MG tablet (Schedule II Drug) TAKE 1 TABLET BY MOUTH EVERY 4 HOURS NEEDED FOR PAIN Oral for 4 Active escitalopram (Lexapro) 20 MG tablet Lexapro Active pregabalin (Lyrica) 150 MG capsule Lyrica Active hydrOXYzine pamoate (Vistaril) 25 MG capsule Vistaril Active Active Problems Problem Noted Date Diagnosed Date Left anterior shoulder pain 01/21/2024 Left arm pain 01/21/2024 Tremor 01/21/2024 Paresthesia 01/21/2024 Cervical radiculopathy 01/21/2024 Cervical spondylosis 01/21/2024 Hemiplegic migraine without status migrainosus, not intractable 01/21/2024 Family History Medical History Relation Name Comments Diabetes Father Relation Name Status Comments Father Mother Alive Social History Tobacco Use Types Packs/Day Years Used Date Smoking Tobacco: Never Smokeless Tobacco: Never Tobacco Cessation:Counseling Given: Not Answered Alcohol Use Standard Drinks/Week Comments Never 0 (1 standard drink = 0.6 oz pur e alcohol) caffeine 1-2 cups per day Comments Unknown Sex and Gender Information Value Date Recorded Sex Assigned at Not on file Legal Sex Female 6:48 PM EDT Gender Identity Not on file Sexual Orientation Not on file Last Filed Vital Signs Vital Sign Reading Time Taken Comments Blood Pressure - - Pulse - - Temperature - - Respiratory Rate - - Oxygen Saturation - - Inhaled Oxygen Concentration - - Weight 53.5 kg (118 lb) 07/18/2022 12:00 PM EST Height 167.6 cm (5' 6 ) 07/18/2022 12:00 PM EST Body Mass Index 19.05 07/18/2022 12:00 PM EST Plan of Treatment Health Maintenance Due Date Last Done Comments CT Colonography 1970 Colonoscopy 1970 Colorectal Cancer Screening 1970 FIT-DNA 1970 FIT 1970 FOBT 1970 Sigmoidoscopy 1970 Pap Smear 1990 Cervical Cancer Screening 1999 HPV/Cotest 1999 Mammogram 2009 Influenza Vaccine (#1) 2025 06/26/2023, 2018 Insurance [employer] [place] [id number]
--- OUTSIDE RECORDS SUMMARY | 2025-02-09 11:47 | XMS_ITS | CCD ---
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 06/23/23 [employer] Other XR shoulder LT min 2V* Loc: [facility] Room: Type: [facility] [employer] Other XR shoulder LT min 2V* Attending Dr: Juan Purcell DO [employer] Other XR shoulder LT min 2V* Copies to: Isiah Purcell DO [employer] Other XR shoulder LT min 2V* Ordering Provider : Isiah Purcell DO [employer] Other XR shoulder LT min 2V* Date of Service: 06/23/23 [employer] Other XR shoulder LT min 2V* XR/XR shoulder LT min 2V*: Status post arthroscopy of left shoulder [employer] Other XR shoulder LT min 2V* 3 views LEFT shoulder plain film [employer] Other XR shoulder LT min 2V* HISTORY: Status post LEFT shoulder surgery [employer] Other XR shoulder LT min 2V* COMPARISON: None [employer] Other XR shoulder LT min 2V* ACUTE FINDINGS: None [employer] Other XR shoulder LT min 2V* DEGENERATIVE CHANGE: Unremarkable [employer] Other XR shoulder LT min 2V* SOFT TISSUE FINDINGS: Unremarkable [employer] Other XR shoulder LT min 2V* JOINT EFFUSION: None [employer] Other XR shoulder LT min 2V* POSTOP CHANGES: Resection changes of the acromion/clavicle present. No complication. [employer] Other XR shoulder LT min 2V* BONY MINERALIZATION: Adequate [employer] Other XR shoulder LT min 2V* 7 XR/XR shoulder LT min 2V* [employer] Other XR shoulder LT min 2V* IMPRESSION: Unremarkable postsurgical change. [employer] Other XR shoulder LT min 2V* Impression dictat ed by: Umesh Perez M.D.06/23/2023 3:46 PM [employer] Other XR shoulder LT min 2V* Dictation Locatio n: [facility]--01 [employer] Other XR shoulder LT min 2V* Transcribed By: Danilo HUNTER 06/23/23 154 [employer] Other XR shoulder LT min 2V* Dictated By: Umesh Perez DO 06/23/23 [facility] [employer] Other XR shoulder LT min 2V* Signed By: [employer]bi [employer] Other XR shoulder LT min 2V* 06/23/23 1546 [employer] Other Alanine aminotransferase [En zymatic activity/volume] in Serum or PlasmaOrdered By: Isiah Purcell on 06-01-2023 ALT [Catalytic activity/Vol] 6 U/L 7-[address] [facility] Albumin [Mass/volume] in Ser um or Plasma by Bromocresol green (BCG) dye binding methoOrdered By: Isiah Purcell on 06-01-2023 Albumin BCG dye [Mass/Vol] 4.2 g/dL 3.5-5.[address] [facility] Alkaline phosphatase [Enzyma tic activity/volume] in Serum or PlasmaOrdered By: Isiah Purcell on 06-01-2023 ALP [Catalytic activity/Vol] 123 U/L 34-[address] [facility] Aspartate aminotransferase [ Enzymatic activity/volume] in Serum or PlasmaOrdered By: Isiah Purcell on 06-01-2023 AST [Catalytic activity/Vol] 10 U/L 13-[address] [facility] Basophils Auto (Bld) [#/Vol] Ordered By: Isiah Purcell on 06-01-2023 Basophils (Bld) [#/Vol] 0.1 10*3/uL 0.0-0.[address] [facility] Basophils/100 WBC Auto (Bld) Ordered By: Isiah Purcell on 06-01-2023 Basophils/100 WBC (Bld) 1.4 % . [facility] Bilirubin.total [Mass/volume ] in Serum or PlasmaOrdered By: Isiah Purcell on 06-01-2023 Bilirubin [Mass/Vol] 0.3 mg/dL 0.3-1.0 [facility] Calcium [Mass/volume] in Ser um or PlasmaOrdered By: Isiah Purcell on 06-01-2023 Calcium [Mass/Vol] 9.6 mg/dL 8.6-10.3 [facility] Carbon dioxide, total [Moles /volume] in Serum or PlasmaOrdered By: Isiah Purcell on 06-01-2023 CO2 [Moles/Vol] 29.0 mmol/L 21.0-31.0 [facility] Chloride [Moles/volume] in S migue or PlasmaOrdered By: Isiah Purcell on 06-01-2023 Chloride [Moles/Vol] 105 mmol/L 98-107 [facility] Creatinine [Mass/volume] in Serum or PlasmaOrdered By: Isiah Purcell on 06-01-2023 Creatinine [Mass/Vol] 0.84 mg/dL 0.60-1.20 [facility] Eosinophils Auto (Bld) [#/Vo l]Ordered By: Isiah Purcell on 06-01-2023 Eosinophils (Bld) [#/Vol] 0.1 10*3/uL 0.0-0.[address] [facility] Eosinophils/100 WBC Auto (Bl d)Ordered By: Isiah Purcell on 06-01-2023 Eosinophils/100 WBC (Bld) 1.8 % . [facility] Erythrocyte distribution wid th Auto (RBC) [Ratio]Ordered By: Isiah Purcell on 06-01-2023 Erythrocyte distribution width (RBC) [Ratio] 13.4 % 11.9-15.[address] [facility] Globulin Calc (S) [Mass/Vol] Ordered By: Isiah Purcell on 06-01-2023 Globulin (S) [Mass/Vol] 2.4 g/dL [facility] Glucose [Mass/volume] in Ser um or PlasmaOrdered By: Isiah Purcell on 06-01-2023 Glucose [Mass/Vol] 77 mg/dL 70-100 [facility] Hematocrit Auto (Bld) [Volum e fraction]Ordered By: Isiah Purcell on 06-01-2023 Hematocrit (Bld) [Volume fraction] 40.1 % 34.0-46.[address] [facility] Hemoglobin [Mass/volume] in BloodOrdered By: Isiah Purcell on 06-01-2023 Hemoglobin (Bld) [Mass/Vol] 13.7 g/dL 11.8-15.[address] [facility] Leukocytes [#/volume] correc lizbet for nucleated erythrocytes in Blood by Automated counOrdered By: Isiah Purcell on 06-01-2023 WBC corrected for nucl RBC Auto (Bld) [#/Vol] 7.3 10*3/uL 3.8-11.[address] [facility] Lymphocytes Auto (Bld) [#/Vo l]Ordered By: Isiah Purcell on 06-01-2023 Lymphocytes (Bld) [#/Vol] 1.5 10*3/uL 1.00-4.[address] [facility] Lymphocytes/100 WBC Auto (Bl d)Ordered By: Isiah Purcell on 06-01-2023 Lymphocytes/100 WBC (Bld) 20.3 % . [facility] MCH Auto (RBC) [Entitic mass ]Ordered By: Isiah Purcell on 06-01-2023 MCH (RBC) [Entitic mass] 30.3 pg 24.7-34.[address] [facility] MCHC Auto (RBC) [Mass/Vol]Or dered By: Isiah Purcell on 06-01-2023 MCHC (RBC) [Mass/Vol] 34.1 g/dL 32.0-35.0 [facility] MCV Auto (RBC) [Entitic vol] Ordered By: Isiah Purcell on 06-01-2023 MCV (RBC) [Entitic vol] 88.8 fL 80-100 [facility] Monocytes Auto (Bld) [#/Vol] Ordered By: Isiah Purcell on 06-01-2023 Monocytes (Bld) [#/Vol] 0.6 10*3/uL 0.0-0.[address] [facility] Monocytes/100 WBC Auto (Bld) Ordered By: Isiah Purcell on 06-01-2023 Monocytes/100 WBC (Bld) 8.7 % . [facility] Neutrophils Auto (Bld) [#/Vo l]Ordered By: Isiah Purcell on 06-01-2023 Neutrophils (Bld) [#/Vol] 5.0 10*3/uL 1.8-7.[address] [facility] Neutrophils/100 WBC Auto (Bl d)Ordered By: Isiah Purcell on 06-01-2023 Neutrophils/100 WBC (Bld) 67.8 % . [facility] No Panel InformationOrdered By: Isiah Purcell on 06-01-2023 Estimated GFR (CKD-EPI) > 60.0 mL/Min [facility] Creatinine Clearance (Chem N/A [facility] Nucleated erythrocytes [Pres ence] in Blood by Automated countOrdered By: Isiah Purcell on 06-01-2023 Nucleated RBC Auto Ql (Bld) 0.0 /100{WBC} 0-0.[address] [facility] Platelet mean volume Auto (B ld) [Entitic vol]Ordered By: Isiah Purcell on 06-01-2023 Platelet mean volume (Bld) [Entitic vol] 8.2 fL 6.3-10.[address] [facility] Platelets Auto (Bld) [#/Vol] Ordered By: Isiah Purcell on 06-01-2023 Platelets (Bld) [#/Vol] 377 10*3/uL 150-[address] [facility] Potassium [Moles/volume] in Serum or PlasmaOrdered By: Isiah Purcell on 06-01-2023 Potassium [Moles/Vol] 4.2 mmol/L 3.5-5.1 [facility] Protein [Mass/volume] in Ser um or PlasmaOrdered By: Isiah Purcell on 06-01-2023 Protein [Mass/Vol] 6.6 g/dL 6.4-8.9 [facility] RBC Auto (Bld) [#/Vol]Ordere d By: Isiah Purcell on 06-01-2023 RBC (Bld) [#/Vol] 4.52 10*6/uL 3.60-5.00 [facility] Serum or plasma albumin/glob ulin mass ratioOrdered By: Isiah Purcell on 06-01-2023 Albumin/Globulin [Mass ratio] 1.8 {ratio} [facility] Serum or plasma anion gap de terminationOrdered By: Isiah Purcell on 06-01-2023 Anion gap [Moles/Vol] 10.2 mmol/L 6.0-15.0 [facility] Sodium [Moles/volume] in Ser um or PlasmaOrdered By: Isiah Purcell on 06-01-2023 Sodium [Moles/Vol] 140 mmol/L 136-145 [facility] Urea nitrogen [Mass/volume] in Serum or PlasmaOrdered By: Isiah Purcell on 06-01-2023 Urea nitrogen [Mass/Vol] 7 mg/dL 7-[address] [facility] WBC Auto (Bld) [#/Vol]Ordere d By: Isiah Purcell on 06-01-2023 WBC (Bld) [#/Vol] 7.3 10*3/uL 3.8-11.6 [facility] MR head/brain wo conon 07-30 MR head/brain wo con [facility] [employer] Other MR head/brain wo con [facility] [employer] Other MR head/brain wo con 1[address] [facility] [employer] Other MR head/[place] [address] [employer] Other MR head/brain wo con MRI Report [facility] [employer] Other MR head/brain wo con Signed [employer] Other MR head/brain wo con Patient: Karen Solis MR#: [id number] [employer] Other MR head/brain wo con 01 [employer] Other MR head/brain wo con : 1970 Acct:[id number] [employer] Other MR head/brain wo con Age/Sex: 52 / F ADM Date: 07/30/22 [employer] Other MR head/brain wo con [facility] Type[facility] [employer] Other MR head/brain wo con Attending Dr: Christin Grullon DO [employer] Other MR head/brain wo con Copies to: Christin Grullon DO [employer] Other MR head/brain wo con Ordering Provider: Christin Grullon DO [employer] Other MR head/brain wo con Date of Service: 07/30/22 [employer] Other MR head/brain wo con MR/MR head/brain wo con: Generalized headaches;Intention tremor;Pain in [employer] Other MR head/brain wo con unspecified l N OTOY Other MR head/brain wo con EXAMINATION: MRI OF THE BRAIN WITHOUT CONTRAST [employer] Other MR head/brain wo con CLINICAL HISTORY: Headache and intention tremor for the past few months, mostly on the left. [employer] Other MR head/brain wo con COMPARISON: CT 2021 [employer] Other MR head/brain wo con TECHNIQUE: Multiecho, multiplanar imaging of the brain was performed without enhancement. [employer] Other MR head/brain wo con The ventricles are normal in size and position. A small nonspecific focus of increased T2 and FLAIR [employer] Other MR head/brain wo con signal is present within the subcortical white matter of the right parietal lobe (axial image 15). [employer] Other MR head/brain wo con There is also very subtle increased signal within the suzie. This is nonspecific and could be [employer] Other MR head/brain wo con minimal microvascular disease. Demyelination is thought less likely given the distribution. A [employer] Other MR head/brain wo con prominent perivascular space is noted at the inferior basal ganglia region on the left. There are [employer] Other MR head/brain wo con no additional areas of abnormal signal intensity within the supra- or infratentorial brain. No [employer] Other MR head/brain wo con restricted diffusion is identified to suggest a recent ischemic event. There are no extra-axial [employer] Other MR head/brain wo con collections or mass effect. The imaged paranasal sinuses and mastoid air cells are clear. [employer] Other MR head/brain wo con MR/MR head/brain wo con [employer] Other MR head/brain wo con IMPRESSION: Nor [employer] Other MR head/brain wo con MINIMAL NONSPECIFIC WHITE MATTER CHANGE, DESCRIBED. [employer] Other MR head/brain wo con NO ACUTE INTRACRANIAL FINDINGS [employer] Other MR head/brain wo con Impression dictated by: Perla Mcnally M.D.07/30/2022 4:55 PM [employer] Other MR head/brain wo con Dictation Location: [facility] [employer] Other MR head/brain wo con Transcribed By: ANJEL 07/30/22 1655 [employer] Other MR head/brain wo con Dictated By: Perla Mcnally MD 07/30/22 1647 [employer] Other MR head/brain wo con Signed By: Thierno [employer] Other MR head/brain wo con 07/30/22 1655 [address] [facility] [employer] Other POINT OF CARE GLUCOSEon 06-24 Glucose [Mass/Vol] 94 mg/dL Normal 74-106 [facility] Comment on above: Performed By: #### P OCGLUC #### [facility] [address], [place] [address] Dr. Alex Guy Glucose [Mass/Vol] 92 mg/dL Normal 74-106 [facility] Comment on above: Performed By: #### P OCGLUC ####[facility] [address] [place], [place] [address]FqDr. Alex Guy XR FOOT LT 2Von 07-21-2022 [...] limited frontal views. Electronically authenticated by: ROXANNA Brooks: 2022-07-21 09:40 Normal [facility] [place] [facility] Covid-19 PCR (CVDTBH)on 06-23 SARS-CoV-2 (COVID-19) RNA CATALINA+probe Ql (Unsp spec) Not detected Normal NOT DETECTED [facility] [place] [facility] Comment on above: Result Comment: This test is not yet approved or cleared by the [place] FDA. When there are no FDA-approved or cleared tests available, and other criteria are met, FDA can make tests available under an emergency access mechanism called an Emergency Use Authorization (EUA). The EUA for this test is supported by the Designer Architect of Health and Human Service's (HHS's) declaration [...] SARS-CoV-2. Performed By: #### C VDTB #### [facility] [address] [place] [address] [address] Alex Guy PROF CHEM 8 (BAS METB)on Anion gap [Moles/Vol] 9.3 mmol/L Normal [facility] Comment on above: Performed By: #### B MP ####[facility] [address] [place] [address]DrGanga Guy Calcium [Mass/Vol] 9.5 mg/dL Normal 8.5-10.1 [facility] Comment on above: Performed By: #### B MP ####[facility] [address] [place] [id number] Guy Chloride [Moles/Vol] 104 mmol/L Normal 98-107 [facility] [place] [facility] Comment on above: Performed By: #### B MP ####[facility] [address] [place] [address]Dr. Alex Brooks CO2 [Moles/Vol] 32.4 mmol/L Critically high 21.0-32.0 [facility] [place] [facility] Comment on above: Performed By: #### B MP ####[facility] [address] [place] [address]Dr. Alizelarry Brooks Creatinine [Mass/Vol] 0.82 mg/dL Normal 0.55-1.02 [facility] [place] [facility] Comment on above: Performed By: #### B MP ####[facility] [address] [place], [place] [address]Dr. Alex Brooks EGFR-AF FILIPINO >60 Normal >=60 [facility] Comment on above: Performed By: #### B MP ####[facility] [address] [place], [place] [address]Dr. Alex Guy EGFR-NON AF FILIPINO >60 Normal >=60 [facility] [place] [facility] Comment on above: Performed By: #### B MP ####[facility] [address] [place], [place] [address]Dr. Alex Guy Glucose [Mass/Vol] 89 mg/dL Normal 74-106 [facility] Comment on above: Performed By: #### B MP ####[facility] [address] [place], [place] [address]Dr. Alex Guy Potassium [Moles/Vol] 4.7 mmol/L Normal 3.5-5.1 [facility] [place] [facility] Comment on above: Performed By: #### B MP ####[facility] [address] [place], [place] [address]Dr. Alex Guy Sodium [Moles/Vol] 141 mmol/L Normal 136-145 [facility] Comment on above: Performed By: #### B MP ####[facility] [address] [place], [place] [address]Dr. Alex Guy Urea nitrogen [Mass/Vol] 7.0 mg/dL Normal 7.0-18.0 [facility] [place] [facility] Comment on above: Performed By: #### B MP ####[facility] [address] [place], [place] [address]Dr. Alex Guy Urea nitrogen/Creatinine [Mass ratio] 8.5 mg/mg Normal [facility] Comment on above: Performed By: #### B ####[facility] [address] [place], [place] [address] FOOT LT WO CONon 07-08-19 [...] screws across the first tarsometatarsal joint surgical marcoa ntonio across the second and third tarsometatarsal joints [...] by: STERLING THOMAS Date: 2022-07-08 07:21 Normal [facility] US breast RT limitedon 07-08 US breast RT limited [facility] [employer] Other US breast RT limited [facility] [employer] Other US breast RT limited [address] [place] [address] [employer] Other [place] [address] [employer] Other US breast RT limited Mammography Report [employer] Other US breast RT limited Signed [employer] Other US breast RT limited Patient: Karen Solis MR#: [id number] [employer] Other US breast RT limited [employer] Other US breast RT limited : 1970 Acct:[id number] [employer] Other US breast RT limited Age/Sex: 52 / F ADM Date: 07/08/22 [employer] Other US breast RT limited Loc: [place] Room: Type: [facility] [employer] Other US breast RT limited Attending Dr: Christin Grullon DO [employer] Other US breast RT limited Copies to: Christin Grullon DO [employer] Other US breast RT limited Ordering Provider: Christin Grullon DO [employer] Other US breast RT limited Date of Service: 07/08/22 [employer] Other US breast RT limited MM/MM diagnostic mammo RT w/CAD: Abnormal mammogram of right breast [employer] Other US breast RT limited ([id number]) US/US breast RT limited: Abnormal mammogram of right breast [employer] Other breast RT limited CLINICAL DATA: Follow-up right breast asymmetry. [employer] Other US breast RT limited RIGHT DIAGNOSTIC MAMMOGRAMS - FULL FIELD DIGITAL WITH TOMOSYNTHESIS AND CAD [employer] Other US breast RT limited Tomosynthesis spot compression true lateral, craniocaudal and mediolateral oblique views of the [employer] Other US breast RT limited right breast were obtained using low-dose digital technique. Comparison is made to the prior study [employer] Other breast RT limited from June 19, 2022. This examination was reviewed with the aid of CAD. [employer] Other breast RT limited There are scattered fibroglandular densities. There is still subtle, ill-defined asymmetry at the [employer] Other US breast RT limited central, slightly inferior breast on today's views. There are no other suspicious masses, typically [employer] Other US breast RT limited malignant calcifications or architectural distortion. [employer] Other US breast RT limited LIMITED RIGHT BREAST ULTRASOUND [employer] Other US breast RT limited the 4 to 5:00 position in the retroareolar region, there is a subtle hypoechoic area which has [employer] Other US breast RT limited slightly irregular margination. It measures approximately 3 x 3 x 4 mm in size. This might correlate [employer] Other US breast RT limited with the mammographic asymmetry. At the 6 to 7:00 position, 4 cm from the nipple there is a possible [employer] Other US breast RT limited subtle 3 x 2 x 4 mm hypoechoic nodular area within a band of tissue extending from middle depth [employer] Other US breast RT limited toward the chest wall. There are multiple adjacent vessels. If real, this is probably incidental. [employer] Other US breast RT limited MM/MM diagnostic mammo RT w/CAD [employer] Other US breast RT limited IMPRESSION: Nor [employer] Other US breast RT limited PERSISTENT SUBTLE ASYMMETRY WITH TINY INDETERMINANT HYPODENSITY ON ULTRASOUND. FINDINGS WERE [employer] Other US breast RT limited DISCUSSED WITH THE PATIENT WHO WOULD PREFER ULTRASOUND-GUIDED BIOPSY OVER OBSERVATION. [employer] Other US breast RT limited SECOND POTENTIAL INCIDENTAL TINY HYPODENSITY AT THE LOWER OUTER QUADRANT. ULTRASOUND FOLLOW-UP IN 6 [employer] Other US breast RT limited MONTHS IS SUGGESTED. [employer] Other US breast RT limited RESULT CODE: 4a [employer] Other US breast RT limited Suspicious Abnormality - Biopsy Low Suspicion [employer] Other US breast RT limited DENSITY CODE: 2 (approximately 25-50% glandular) [employer] Other US breast RT limited FOLLOW UP: BIO [employer] Other US breast RT limited The false-negative rate of mammography is approximately 10-percent. [employer] Other US breast RT limited Management of a palpable abnormality must be based on clinical grounds. [employer] Other US breast RT limited Patient was entered into a reminder system with a target due date for the next mammogram. [employer] Other US breast RT limited Impression dictated by: Perla Mcnally M.D.07/08/2022 4:04 PM [employer] Other US breast RT limited Dictation Location: [facility] [employer] Other US breast RT limited Transcribed By: PWS 07/08/22 1604 [employer] Other US breast RT limited Dictated By: Perla Mcnally MD 07/08/22 1442 [employer] Other US breast RT limited Signed By: Thierno [employer] Other US breast RT limited 07/08/22 160[address] [facility] [employer] Other Albumin [Mass/volume] in Ser um or PlasmaOrdered By: Christin Grullon on 05-19-2022 Albumin [Mass/Vol] 4.6 g/dL 3.2-5.5 [facility] C reactive protein [Mass/vol ume] in Serum or PlasmaOrdered By: Christin Grullon on 05-19-2022 CRP [Mass/Vol] 0.5 mg/dL 0.0-1.[address] [facility] Creatinine and Glomerular fi ltration rate.predicted panel (S/P/Bld)Ordered By: Christin Grullon on 05-19-2022 Creatinine [Mass/Vol] 0.85 mg/dL 0.44-1.03 [facility] Erythrocyte distribution wid th Auto (RBC) [Ratio]Ordered By: Christin Grullon on 05-19-2022 Erythrocyte distribution width (RBC) [Ratio] 13.6 % 11.9-15.[address] [facility] Erythrocyte sedimentation ra te by Photometric methodOrdered By: Christin Grullon on 05-19-2022 ESR Photometric method (Bld) [Velocity] 24 mm/hr 0- [facility] Estimated glomerular filtrat ion rate (GFR) non- AmericanOrdered By: Christin Grullon on 05-19-2022 GFR/1.73 sq M.predicted among non-blacks MDRD (S/P/Bld) [Vol rate/Area] > 60 mL/Min [facility] Globulin Calc (S) [Mass/Vol] Ordered By: Christin Grullon on 05-19-2022 Globulin (S) [Mass/Vol] 2.5 g/dL [facility] [facility] Hematocrit Auto (Bld) [Volum e fraction]Ordered By: Christin Grullon on 05-19-2022 Hematocrit (Bld) [Volume fraction] 42.6 % 34.0-46.[address] [facility] Hemoglobin [Mass/volume] in BloodOrdered By: Christin Grullon on 05-19-2022 Hemoglobin (Bld) [Mass/Vol] 14.1 g/dL 11.8-15.[address] [facility] MCH Auto (RBC) [Entitic mass ]Ordered By: Christin rGullon on 05-19-2022 MCH (RBC) [Entitic mass] 29.5 pg 24.7-34.[address] [facility] MCHC Auto (RBC) [Mass/Vol]Or dered By: Christin Grullon on 05-19-2022 MCHC (RBC) [Mass/Vol] 33.0 g/dL 32.0-35.0 [facility] MCV Auto (RBC) [Entitic vol] Ordered By: Christin Grullon on 05-19-2022 MCV (RBC) [Entitic vol] 89.3 fL 80-100 F [facility] No Panel InformationOrdered By: Christin Grullon on 05-19-2022 Estimated GFR () > 60 mL/Min [facility] Comment on above: GFR estimated refere nce range: According to KDOQI guidelines, <60 ml/min/1.73m2 is sufficient to diagnose a patient with chronic kidney disease. Pharmacy Creatinine Clearance (Chem N/A [facility] Platelet mean volume Auto (B ld) [Entitic vol]Ordered By: Christin Grullon on 05-19-2022 Platelet mean volume (Bld) [Entitic vol] 8.5 fL 6.3-10.[address] [facility] Platelets Auto (Bld) [#/Vol] Ordered By: Christin Grullon on 05-19-2022 Platelets (Bld) [#/Vol] 388 10*3/uL 150-[address] [facility] Protein [Mass/volume] in Ser um or PlasmaOrdered By: Christin Grullon on 05-19-2022 Protein [Mass/Vol] 7.1 g/dL 6.1-7.9 [facility] RBC Auto (Bld) [#/Vol]Ordere d By: Christin Grullon on 05-19-2022 RBC (Bld) [#/Vol] 4.77 10*6/uL 3.60-5.00 [facility] Serum or plasma alanine martinez otransferase measurement without P-5'-P (enzymatic activiOrdered By: Christin Grullon on 05-19-2022 ALT No additional P-5'-P [Catalytic activity/Vol] 9 U/L 10-[address] [facility] Serum or plasma albumin/glob ulin mass ratioOrdered By: Christin Grullon on 05-19-2022 Albumin/Globulin [Mass ratio] 1.8 {ratio} [facility] Serum or plasma alkaline cooper sphatase measurement (enzymatic activity/volume)Ordered By: Christin Grullon on 05-19-2022 ALP [Catalytic activity/Vol] 98 U/L 32-[address] [facility] Serum or plasma anion gap de terminationOrdered By: Christin Grullon on 05-19-2022 Anion gap [Moles/Vol] 13.8 mmol/L 6.0-15.0 [facility] Serum or plasma aspartate am inotransferase measurement (enzymatic activity/volume)Ordered By: Christin Grullon on 05-19-2022 AST [Catalytic activity/Vol] 16 U/L 10-[address] [facility] Serum or plasma calcium abhijit urement (mass/volume)Ordered By: Christin Grullon on 05-19-2022 Calcium [Mass/Vol] 9.9 mg/dL 8.2-10.2 [facility] Serum or plasma chloride brandon surement (moles/volume)Ordered By: Christin Grullon on 05-19-2022 Chloride [Moles/Vol] 101 mmol/L 95-114 [facility] Serum or plasma cyclic adeno sine monophosphate measurement (moles/volume)Ordered By: Christin Grullon on 05-19-2022 Adenosine monophosphate.cyclic [Moles/Vol] 4 units 0-[address] [facility] Comment on above: Negative <20 Weak po sitive 20 - 39 Moderate positive 40 - 59 Strong positive >59Performed at: - [facility] [id number] Director: Lena Evans MD, Phone: [phone] Serum or plasma glucose abhijit urement (mass/volume)Ordered By: Christin Grullon on 05-19-2022 Glucose [Mass/Vol] 81 mg/dL 70-100 [facility] Comment on above: ADA recommended refe rence rangeRandom Glucose Reference Range is dependent on time and content of last meal. Glucose of more than 200 mg/dL in a nonstressed, ambulatory subject supports the diagnosis of Diabetes Mellitus. Serum or plasma potassium me asurement (moles/volume)Ordered By: Christin Grullon on 05-19-2022 Potassium [Moles/Vol] 4.6 mmol/L 3.5-5.1 [facility] Serum or plasma rheumatoid f actor measurement (units/volume)Ordered By: Chritsin Grullon on 05-19-2022 Rheumatoid factor Qn [IU]/mL <14.0 [facility] Comment on above: Performed at: [facility] [address] [id number] Director: Primitivo Raygoza PhD, Phone: [phone] Serum or plasma sodium measu rement (moles/volume)Ordered By: Christin Grullon on 05-19-2022 Sodium [Moles/Vol] 138 mmol/L 136-146 [facility] Serum or plasma total biliru bin measurement (mass/volume)Ordered By: Christin Grullon on 05-19-2022 Bilirubin [Mass/Vol] 0.4 mg/dL 0.3-1.2 [facility] Serum or plasma total carbon dioxide measurement (moles/volume)Ordered By: Christin Grullon on 05-19-2022 CO2 [Moles/Vol] 27.8 mmol/L 22.0-30.0 [facility] Serum or plasma urea nitroge n measurement (mass/volume)Ordered By: Christin Grullon on 05-19-2022 Urea nitrogen [Mass/Vol] 8 mg/dL 9- [facility] WBC Auto (Bld) [#/Vol]Ordere d By: Christin Grullon on 05-19-2022 WBC (Bld) [#/Vol] 7.1 10*3/uL 3.8-11.6 [facility] XR knee standing BIon 2021 XR knee standing BI [facility] [employer] Other XR knee standing BI [facility] [employer] Other XR knee standing BI [address] [place] [address] [employer] [facility] [employer] [place] [address] [employer] Other XR knee standing BI XRay Report [employer] Other XR knee standing BI Signed [employer] Other XR knee standing BI Patient: Karen Solis MR#: [id number] [employer] Other XR knee standing BI [employer] Other XR knee standing BI : 1970 Acct:[id number] [employer] Other XR knee standing BI Age/Sex: 52 / F ADM Date: 05/19/22 [employer] Other XR knee standing BI Loc: XDS Room: Type: REG CLI [employer] Other XR knee standing BI Attending Dr: Christin Grullon DO [employer] Other XR knee standing BI Copies to: Christin Grullon DO [employer] Other XR knee standing BI Ordering Provider: Christin Grullon DO [employer] Other XR knee standing BI Date of Service: 05/19/22 [employer] Other XR knee standing BI XR/XR shoulder LT min 2V*: Pain in joint, multiple sites;Pain in left [employer] Other XR knee standing BI shoulder [employer] Other XR knee standing BI ([id number]) XR/XR knee standing BI: Pain in joint, multiple sites;Pain in right knee;Pain in lef [employer] Other XR knee standing BI LEFT SHOULDER - - 3 views bilateral knee series, one view each [employer] Other XR knee standing BI CLINICAL HISTORY: Frozen left shoulder for 4 months. Bilateral knee pain left greater than right [employer] Other XR knee standing BI with standing. N OTOY Other XR knee standing BI COMPARISON: Knee series 01/15/2021 [employer] Other XR knee standing BI FINDINGS: [employer] Other XR knee standing BI Left shoulder: No acute bony process or significant degenerative change. [employer] Other XR knee standing BI Knee series: No acute bony process or significant degenerative change. [employer] Other XR knee standing BI XR/XR shoulder LT min 2V* [employer] Other XR knee standing BI IMPRESSION: [employer] Other XR knee standing BI NO ACUTE BONY PROCESS OR SIGNIFICANT DEGENERATIVE CHANGE INVOLVING THE KNEES OR LEFT SHOULDER. [employer] Other XR knee standing BI Impression dictated by: Jeff Hannah Jr., Ronna05/19/2022 3:54 PM [employer] Other XR knee standing BI Dictation Location: [place] [address] [employer] Other XR knee standing BI Transcribed By: PWS 05/19/22 1554 [employer] Other XR knee standing BI Dictated By: Jeff Hannah Jr, DO 05/19/22 1553 [employer] Other XR knee standing BI Signed By: [employer] Other XR knee standing BI 05/19/22 1554 No rt [employer] Other POINT OF CARE GLUCOSEon 01-21 Glucose [Mass/Vol] 126 mg/dL Critically high 74-106 T [facility] Comment on above: Performed By: #### P OCGLUC #### [facility] [address] [place] [address] Dr. Alex Guy Covid-19 PCR ([facility])on 01-21 SARS-CoV-2 (COVID-19) RNA CATALINA+probe Ql (Unsp spec) Not detected Normal NOT DETECTED [facility] Comment on above: Result Comment: This test is not yet approved or cleared by the [place] FDA. When there are no FDA-approved or cleared tests available, and other criteria are met, FDA can make tests available under an emergency access mechanism called an Emergency Use Authorization (EUA). The EUA for this test is supported by the [place] of Health and Human Service's (HHS's) declaration [...] SARS-CoV-2. Performed By: #### C VDTB #### [facility] [address] [address] [address] Alex Guy XR CHEST 2 Von [...] HUNG ARREDONDO Date: 2022-02-04 07:41 Normal [facility] PROF CHEM 8 (BAS METB)on Anion gap [Moles/Vol] 10.7 mmol/L Normal [facility] Comment on above: Performed By: #### B MP ####[facility] [address] [place] [id number]. Alex Guy Calcium [Mass/Vol] 9.3 mg/dL Normal 8.5-10.1 [facility] Comment on above: Performed By: #### B MP ####[facility] [address] [place] [id number] Guy Chloride [Moles/Vol] 101 mmol/L Normal 98-107 [facility] Comment on above: Performed By: #### B MP ####[facility] [address] [place] [id number]. Alex Guy CO2 [Moles/Vol] 30.3 mmol/L Normal 21.0-32.0 [facility] Comment on above: Performed By: #### B MP ####[facility] [address] [address]Dr. Alex Guy Creatinine [Mass/Vol] 0.91 mg/dL Normal 0.55-1.02 [facility] Comment on above: Performed By: #### B MP ####[facility] [address] [place] [id number]. Alex Guy EGFR-AF FILIPINO >60 Normal >=60 [facility] Comment on above: Performed By: #### B MP ####[facility] [address] [place] [address]Dr. Alex Guy EGFR-NON AF FILIPINO >60 Normal >=60 [facility] Comment on above: Performed By: #### B MP ####[facility] [address] [place], [place] [address]Dr. Alex Guy Glucose [Mass/Vol] 84 mg/dL Normal 74-106 [facility] Comment on above: Performed By: #### B MP ####[facility] [address] [place], [place] [address]Dr. Alex Guy Potassium [Moles/Vol] 5.0 mmol/L Normal 3.5-5.1 [facility] Comment on above: Performed By: #### B MP ####[facility] [address] [place], [place] [address]Dr. Alex Guy Sodium [Moles/Vol] 137 mmol/L Normal 136-145 [facility] Comment on above: Performed By: #### B MP ####[facility] [address] [place], [place] [address]Dr. Alex Guy Urea nitrogen [Mass/Vol] 8.0 mg/dL Normal 7.0-18.0 [facility] Comment on above: Performed By: #### B MP ####[facility] [address] [place], [place] [address]Dr. Alex Guy Urea nitrogen/Creatinine [Mass ratio] 8.8 mg/mg Normal [facility] Comment on above: Performed By: #### B MP ####[facility] [address] [place], [place] [address]Dr. Alex Guy CT FOOT LT WO CONon [...] by: HUNG ARREDONDO Date: 2021-12-27 18:04 Normal [facility] PROGRESSon 10-19-2018 Protein mass conc HNO ID: [id number] Author: Lian Aparicio Service: ? Author Type: Physician Type: Progress Notes Filed: 10/19/2018 9:59 PM Note Text: [facility] - General Progress Note KAREN SOLIS : 1970 AGE: 48 SEX: F CSN: [id number] [facility]: [place] LOCATION: [facility] ATTENDING PHYSICIAN: Bill Patten [...] Psych Unit. Lian Aparicio M.D. Internal Medicine JOYNER:[id number] [facility] RPRon 08-31-2018 Reagin Ab RPR Ql (S) Nonreactive Normal Nonreactive [facility] Comment on above: Performed By: #### U A, PT, CBCDIF, GBCHEM, GBTSH, MG, RPR #### [facility] [address] [facility] [address] CBCDIFon 08-28-2018 Abs Baso 0.06 k/uL Normal 0-0.2 [place] Comment on above: Performed By: #### U A, PT, CBCDIF, GBCHEM, GBTSH, MG, RPR #### [facility] [address] [place] [address] Abs [place] 1.08 k/uL High 0-0.8 [place] Comment on above: Performed By: #### U A, PT, CBCDIF, GBCHEM, GBTSH, MG, RPR #### [facility] [address] [place] [address] Abs Neut 4.76 k/uL Normal 1.8-7.7 [place] Comment on above: Performed By: #### U A, PT, CBCDIF, GBCHEM, GBTSH, MG, RPR #### [facility] [address] [place] [address] Basophils/100 WBC (Bld) 0.8 % Normal 0-1 [facility] Comment on above: Performed By: #### U A, PT, CBCDIF, GBCHEM, GBTSH, MG, RPR #### [facility] [address] [place] [address] Eosinophils #/vol (Bld) 0.25 10*3/uL Normal 0-0.4 [place] Comment on above: Performed By: #### U A, PT, CBCDIF, GBCHEM, GBTSH, MG, RPR #### [facility] [address] [place] [address] Eosinophils/100 WBC (Bld) 3.3 % Normal 0-4 [place] Comment on above: Performed By: #### U A, PT, CBCDIF, GBCHEM, GBTSH, MG, RPR #### [facility] [address] [place] [address] Immature Gran 0.30 % Normal 0-1.9 [place] Comment on above: Performed By: #### U A, PT, CBCDIF, GBCHEM, GBTSH, MG, RPR #### [facility] [address] [place] [address] Lymphocytes #/vol (Bld) 1.50 10*3/uL Normal 1.0-4.0 [place] Comment on above: Performed By: #### U A, PT, CBCDIF, GBCHEM, GBTSH, MG, RPR #### [facility] [address] [place] [address] Lymphocytes/100 WBC (Bld) 19.6 % Low 22-44 [place] Comment on above: Performed By: #### U A, PT, CBCDIF, GBCHEM, GBTSH, MG, RPR #### [facility] [address] [facility] [place] [address] Monocytes/100 WBC (Bld) 14.1 % High 4-12 A [facility] Comment on above: Performed By: #### U A, PT, CBCDIF, GBCHEM, GBTSH, MG, RPR #### [facility] [address] [place] [address] Neutrophils/100 WBC (Bld) 61.9 % Normal 40-70 [place] Comment on above: Performed By: #### U A, PT, CBCDIF, GBCHEM, GBTSH, MG, RPR #### [facility] [address] [place] [address] Erythrocyte distribution width Ratio (RBC) 13.7 % Normal 11.5-14.5 [place] Comment on above: Performed By: #### U A, PT, CBCDIF, GBCHEM, GBTSH, MG, RPR #### [facility] [address] [place] [address] Hematocrit Volume Fraction (Bld) 45.9 % Normal 36.0-46.0 [place] Comment on above: Performed By: #### U A, PT, CBCDIF, GBCHEM, GBTSH, MG, RPR #### [facility] [address] [place] [address] Hemoglobin mass conc (Bld) 15.0 g/dL Normal 12.0-16.0 [place] Comment on above: Performed By: #### U A, PT, CBCDIF, GBCHEM, GBTSH, MG, RPR #### [facility] [address] [place] [address] MCH Entitic mass (RBC) 31.5 pG Normal 26-34 [facility] Comment on above: Performed By: #### U A, PT, CBCDIF, GBCHEM, GBTSH, MG, RPR #### [facility] [address] [place] [address] MCHC mass conc (RBC) 32.7 g/dL Normal 31-37 [facility] Comment on above: Performed By: #### U A, PT, CBCDIF, GBCHEM, GBTSH, MG, RPR #### [facility] [address] [place] [address] MCV Entitic volume (RBC) 96.4 fL Normal 80-100 [place] Comment on above: Performed By: #### U A, PT, CBCDIF, GBCHEM, GBTSH, MG, RPR #### [facility] [address] [place] [address] NRBCs 0 /100 WBC Normal 0-0.9 [place] Comment on above: Performed By: #### U A, PT, CBCDIF, GBCHEM, GBTSH, MG, RPR #### [facility] [address] [place] [address] Platelets #/vol (Bld) 248 10*3/uL Normal 150-450 [facility] Comment on above: Performed By: #### U A, PT, CBCDIF, GBCHEM, GBTSH, MG, RPR #### [facility] [address] [place] [address] RBC #/vol (Bld) 4.76 10*6/uL Normal 4.00-5.20 [facility] Comment on above: Performed By: #### U A, PT, CBCDIF, GBCHEM, GBTSH, MG, RPR #### [facility] [address] [place] [address] WBC #/vol (Bld) 7.67 10*3/uL Normal 4.5-11.0 [facility] Comment on above: Performed By: #### U A, PT, CBCDIF, GBCHEM, GBTSH, MG, RPR #### [facility] [address] [place], [place] [id number] Dayanna Rich 2018 Albumin mass conc 3.9 g/dL Normal 3.5-5.0 [facility] Comment on above: Performed By: #### U A, PT, CBCDIF, GBCHEM, GBTSH, MG, RPR #### [facility] [address] [place], [place] [id number] Alkaline Phos 112 U/L Normal 38-125 [place] Comment on above: Performed By: #### U A, PT, CBCDIF, GBCHEM, GBTSH, MG, RPR #### [facility] [address] [place], [place] [address] ALT enzyme act/vol 42 U/L Normal 9-52 [facility] Comment on above: Performed By: #### U A, PT, CBCDIF, GBCHEM, GBTSH, MG, RPR #### [facility] [address] [place] [address] Amylase enzyme act/vol 44 U/L Normal 30-110 [facility] Comment on above: Performed By: #### U A, PT, CBCDIF, GBCHEM, GBTSH, MG, RPR #### [facility] [address] [place] [address] Anion gap molar conc 12 mmol/L Normal 0-15 [facility] Comment on above: Performed By: #### U A, PT, CBCDIF, GBCHEM, GBTSH, MG, RPR #### [facility] [address] [place] [address] AST enzyme act/vol 60 U/L High 17-59 [facility] Comment on above: Performed By: #### U A, PT, CBCDIF, GBCHEM, GBTSH, MG, RPR #### [facility] [address] [place] [address] Bilirubin Ql (U) 0.5 mg/dL Normal 0.2-1.3 [facility] Comment on above: Performed By: #### U A, PT, CBCDIF, GBCHEM, GBTSH, MG, RPR #### [facility] [address] [place] [address] Calcium mass conc 9.4 mg/dL Normal 8.4-10.2 [facility] Comment on above: Performed By: #### U A, PT, CBCDIF, GBCHEM, GBTSH, MG, RPR #### [facility] [address] [place] [address] Chloride molar conc 104 mmol/L Normal 98-107 [facility] Comment on above: Performed By: #### U A, PT, CBCDIF, GBCHEM, GBTSH, MG, RPR #### [facility] [address] [place] [address] Cholesterol mass conc 165 mg/dL Normal 100-199 [facility] Comment on above: Performed By: #### U A, PT, CBCDIF, GBCHEM, GBTSH, MG, RPR #### [facility] [address] [place] [address] CO2 molar conc 28 mmol/L Normal 22-30 [place] Comment on above: Performed By: #### U A, PT, CBCDIF, GBCHEM, GBTSH, MG, RPR #### [facility] [address] [place] [address] Creatinine mass conc 0.87 mg/dL Normal 0.52-1.04 [facility] Comment on above: Performed By: #### U A, PT, CBCDIF, GBCHEM, GBTSH, MG, RPR #### [facility] [address] [place] [address] eGFR Amer >60 Normal >60 [facility] Comment on above: Result Comment: MDRD calculation used for eGFR results. Performed By: #### U A, PT, CBCDIF, GBCHEM, GBTSH, MG, RPR #### [facility] [address] [place] [address] eGFR non Am >60 Normal >60 [facility] Comment on above: Performed By: #### U A, PT, CBCDIF, GBCHEM, GBTSH, MG, RPR #### [facility] [address] [place] [address] Gamma glutamyl transferase enzyme act/vol 79 U/L High 12-43 [place] Comment on above: Performed By: #### U A, PT, CBCDIF, GBCHEM, GBTSH, MG, RPR #### [facility] [address] [place] [address] Glucose mass conc 75 mg/dL Normal 74-106 [facility] Comment on above: Performed By: #### U A, PT, CBCDIF, GBCHEM, GBTSH, MG, RPR #### [facility] [address] [place] [address] LDH 496 U/L Normal 318-618 [place] Comment on above: Performed By: #### U A, PT, CBCDIF, GBCHEM, GBTSH, MG, RPR #### [facility] [address] [place] [address] Phosphate mass conc 4.7 mg/dL High 2.5-4.5 [facility] Comment on above: Performed By: #### U A, PT, CBCDIF, GBCHEM, GBTSH, MG, RPR #### [facility] [address] [place] [address] Potassium molar conc 4.2 mmol/L Normal 3.5-5.1 [facility] Comment on above: Performed By: #### U A, PT, CBCDIF, GBCHEM, GBTSH, MG, RPR #### [facility] [address] [place] [address] Protein mass conc 6.9 g/dL Normal 6.2-8.2 [facility] Comment on above: Performed By: #### U A, PT, CBCDIF, GBCHEM, GBTSH, MG, RPR #### [facility] [address] [place] [address] Sodium molar conc 140 mmol/L Normal 137-145 [facility] Comment on above: Performed By: #### U A, PT, CBCDIF, GBCHEM, GBTSH, MG, RPR #### [facility] [address] [place] [address] Triglyceride mass conc 123 mg/dL Normal 35-150 [facility] Comment on above: Performed By: #### U A, PT, CBCDIF, GBCHEM, GBTSH, MG, RPR #### [facility] [address] [place] [address] Urate mass conc 2.5 mg/dL Normal 2.5-6.2 [place] Comment on above: Performed By: #### U A, PT, CBCDIF, GBCHEM, GBTSH, MG, RPR #### [facility] [address] [place], [place] [address] Urea nitrogen mass conc 9 mg/dL Normal 7-17 A [facility] Comment on above: Performed By: #### U A, PT, CBCDIF, GBCHEM, GBTSH, MG, RPR #### [facility] [address] [place], [place] [id number] [facility] TSH[facility] 08-28-2018 Thyrotropin Qn 6.750 uU/mL High 0.465-4.680 [facility] Comment on above: Performed By: #### U A, PT, CBCDIF, GBCHEM, GBTSH, MG, RPR #### [facility] [address] [place], [place] [id number] Magnesiumon 08-28-2018 Magnesium mass conc 2.4 mg/dL High 1.3-2.3 [facility] Comment on above: Performed By: #### U A, PT, CBCDIF, GBCHEM, GBTSH, MG, RPR #### [facility] [address] [place], [place] [id number] Protimeon 08-28-2018 Prothrombin time (PT) Coag time (PPP) 0.9 s Normal 0.6-1.1 [place] Comment on above: Result Comment: The PT/INR [...] PT, CBCDIF, GBCHEM, GBTSH, MG, RPR #### [facility] [address] [facility] [place], [place] [id number] Prothrombin time (PT) Coag time (PPP) 12.2 s Normal 11.8-14.1 [place] Comment on above: Performed By: #### U A, PT, CBCDIF, GBCHEM, GBTSH, MG, RPR #### [facility] [address] [place] [address] T3 Totalon 08-28-2018 T3 Total 1.0 ng/mL Normal 0.970-1.69 [place] Comment on above: Performed By: #### T 3TOT, T3U, T4 #### [facility] [address] [place], [place] [id number] T3 Uptakeon 08-28-2018 T3 Uptake 29.7 % Normal 23.5-40.5 [place] Comment on above: Performed By: #### T 3TOT, T3U, T4 #### [facility] [address] [place], [place] [id number] T4on 08-28-2018 T4 4.4 ug/dL Low 5.5-11.0 [place] Comment on above: Performed By: #### T 3TOT, T3U, T4 #### [facility] [address] [place], [place] [id number] Urinalysison 08-28-2018 Bilirubin mass conc Negative Normal Negative [facility] Comment on above: Performed By: #### U A, PT, CBCDIF, GBCHEM, GBTSH, MG, RPR #### [facility] [address] [place], [place] [id number] Clarity Nom (U) Clear Normal Clear [place] Comment on above: Performed By: #### U A, PT, CBCDIF, GBCHEM, GBTSH, MG, RPR #### [facility] [address] [place] [address] Color Nom (U) Straw Critically abnormal Yellow [place] Comment on above: Performed By: #### U A, PT, CBCDIF, GBCHEM, GBTSH, MG, RPR #### [facility] [address] [place] [address] Comments MICROSCOPIC ANALYSIS NOT DONE ON URINES WITH NEGATIVE BIOCHEMICAL TESTS Normal [place] Comment on above: Performed By: #### U A, PT, CBCDIF, GBCHEM, GBTSH, MG, RPR #### [facility] [address] [place] [address] Glucose mass conc Negative Normal Negative [facility] Comment on above: Performed By: #### U A, PT, CBCDIF, GBCHEM, GBTSH, MG, RPR #### [facility] [address] [place] [address] Hemoglobin/Blood Negative Normal Negative [facility] Comment on above: Performed By: #### U A, PT, CBCDIF, GBCHEM, GBTSH, MG, RPR #### [facility] [address] [place] [address] Ketone Negative Normal Negative [place] Comment on above: Performed By: #### U A, PT, CBCDIF, GBCHEM, GBTSH, MG, RPR #### [facility] [address] [place] [address] Leukest Negative Normal Negative [place] Comment on above: Performed By: #### U A, PT, CBCDIF, GBCHEM, GBTSH, MG, RPR #### [facility] [address] [place] [address] Nitrite Ql (U) Negative Normal Negative [place] Comment on above: Performed By: #### U A, PT, CBCDIF, GBCHEM, GBTSH, MG, RPR #### [facility] [address] [place] [address] pH (U) 7.0 [pH] Normal 5-7 [place] Comment on above: Performed By: #### U A, PT, CBCDIF, GBCHEM, GBTSH, MG, RPR #### [facility] [address] [place] [address] Protein mass conc (U) Negative Normal Negative [facility] Comment on above: Performed By: #### U A, PT, CBCDIF, GBCHEM, GBTSH, MG, RPR #### [facility] [address] [place] [address] Urine Spec [place] 1.004 Low 1.005-1.030 [facility] Comment on above: Performed By: #### U A, PT, CBCDIF, GBCHEM, GBTSH, MG, RPR #### [facility] [address] [place] [address] Urobilinogen Qn (U) <2.0 Normal 0.0-1.0 [facility] Comment on above: Performed By: #### U A, PT, CBCDIF, GBCHEM, GBTSH, MG, RPR #### [facility] [address] [place] [address] ALLIED HEALTHon 08-27-2018 ALLIED HEALTH HNO ID: [id number] Author: Yazmin (Therapist) Adriano Service: Music Therapy [...] DATE: August 27, 2018 TIME: 3:49 PM [facility] ALLIED HEALTH HNO ID: [id number] Author: Gifty Kaplan) Calixto Service: Art Therapy [...] She is relieved to be going [facility] today. She feels if she would've went home family stress and idle time would leave her to relapse. SIGNATURE: Gifty De Luna, TRAVELING CONSTRUCTION SUPERINTENDENT,ATR, SNOW PLOW OPERATOR PATIENT NAME: Karen Solis DATE: August 27, 2018 TIME: 1:47 PM [facility] PROGRESSon 08-27-2018 Protein mass conc HNO ID: [id number] Author: Lian Aparicio Service: ? Author Type: Physician Type: Progress Notes Filed: 10/20/2018 9:46 PM Note Text: [facility] - General Progress Note KAREN SOLIS : 1970 AGE: 48 SEX: F CSN: [id number] HOSP SVC: [facility] LOCATION: [facility] [place] ATTENDING PHYSICIAN: Bill Patten [...] Smoking cessation. Lian Aparicio M.D. Internal Medicine JOYNER:[id number] [facility] HEALTHon 08-26-2018 ALLIED HEALTH HNO ID: [id number] Author: Lashell (Therapist) Britton Service: Art Therapy [...] images of animals and a cabin in [place]. Pt stated that she enjoyed the presence of animals and that she has always wanted to travel to [place]. SIGNATURE: Lashell Jarquin, [facility] PATIENT NAME: Karen Solis DATE: August 26, 2018 TIME: 3:51 PM [facility] HNO ID: [id number] Author: RASHMI Alanis Service: Recreational Therapy Author [...] DATE: August 26, 2018 TIME: 2:49 PM [facility] HNO ID: [id number] Author: Yazmin (Therapist) Adriano Service: Music Therapy [...] she wrote with the group. SIGNATURE: MAI TristanBC PATIENT NAME: Karen Solis DATE: August 26, 2018 TIME: 1:53 PM [facility] HNO ID: [id number] Author: Gifty De Luna (Lsw) Service: Art Therapy Author Type: Art Therapist Type: [facility] Filed: 08/26/2018 11:17 AM Note Text: GROUP [...] anxious and optimistic about discharge today to [facility] She values her family, dogs, health, God and happiness. She feels her family thinks she values her sobriety and strength currently. She continues to want to work on earning her families trust and respect back . SIGNATURE: Gifty De Luna LPC,ATR, SNOW PLOW OPERATOR PATIENT NAME: Karen Solis DATE: August 26, 2018 TIME: 11:08 AM Normal [facility] CBC and Differentialon 08-26 Abs Baso 0.04 k/uL Normal <0.11 [facility] Comment on above: Performed By: #### U HCG, UAWMIC, UTOX2 #### [place] [address] Abs [place] 1.07 k/uL High <0.87 [facility] Comment on above: Performed By: #### U HCG, UAWMIC, UTOX2 #### [place] [address] Abs Neut 6.92 k/uL Normal 1.45-7.50 [facility] Comment on above: Performed By: #### U HCG, UAWMIC, UTOX2 #### [place] [address] Basophils/100 WBC (Bld) 0.4 % Normal [facility] Comment on above: Performed By: #### U HCG, UAWMIC, UTOX2 #### [place] [address] Eosinophils #/vol (Bld) 0.19 10*3/uL Normal <0.46 [facility] Comment on above: Performed By: #### U HCG, UAWMIC, UTOX2 #### [place] [address] Eosinophils/100 WBC (Bld) 2.1 % Normal [facility] Comment on above: Performed By: #### U HCG, UAWMIC, UTOX2 #### [place] [address] Erythrocyte distribution width Ratio (RBC) 14.0 % Normal 11.5-15.0 [facility] Comment on above: Performed By: #### U HCG, UAWMIC, UTOX2 #### [place] [address] Hematocrit Volume Fraction (Bld) 41.3 % Normal 36.0-46.0 [facility] Comment on above: Performed By: #### U HCG, UAWMIC, UTOX2 #### [place] [address] Hemoglobin mass conc (Bld) 13.9 g/dL Normal 11.5-15.5 [facility] Comment on above: Performed By: #### U HCG, UAWMIC, UTOX2 #### [place] [address] Lymphocytes #/vol (Bld) 0.86 10*3/uL Low 1.00-4.00 [facility] Comment on above: Performed By: #### U HCG, UAWMIC, UTOX2 #### [place] [address] Lymphocytes/100 WBC (Bld) 9.5 % Normal [facility] Comment on above: Performed By: #### U HCG, UAWMIC, UTOX2 #### [place] [address] MCH Entitic mass (RBC) 32.3 pG Normal 26.0-34.0 [facility] Comment on above: Performed By: #### U HCG, UAWMIC, UTOX2 #### [place] [address] MCHC mass conc (RBC) 33.7 g/dL Normal 30.5-36.0 [facility] Comment on above: Performed By: #### U HCG, UAWMIC, UTOX2 #### [place] [address] MCV Entitic volume (RBC) 95.8 fL Normal 80.0-100.0 [facility] Comment on above: Performed By: #### U HCG, UAWMIC, UTOX2 #### [place] [address] Monocytes/100 WBC (Bld) 11.8 % Normal [facility] Comment on above: Performed By: #### U HCG, UAWMIC, UTOX2 #### [place] [address] Neutrophils/100 WBC (Bld) 76.2 % Normal [facility] Comment on above: Performed By: #### U HCG, UAWMIC, UTOX2 #### [place] [address] NRBCs 0.0 /100 WBC Normal 0 [facility] Comment on above: Performed By: #### U HCG, UAWMIC, UTOX2 #### [place] [address] Platelet mean volume Entitic volume (Bld) 10.6 fL Normal 9.0-12.7 [facility] Comment on above: Performed By: #### U HCG, UAWMIC, UTOX2 #### [place] [address] Platelets #/vol (Bld) 191 10*3/uL Normal 150-400 [facility] Comment on above: Performed By: #### U HCG, UAWMIC, UTOX2 #### [place] [address] RBC #/vol (Bld) 4.31 10*6/uL Normal 3.90-5.20 [facility] Comment on above: Performed By: #### U HCG, UAWMIC, UTOX2 #### [place] [address] WBC #/vol (Bld) 9.08 10*3/uL Normal 3.70-11.00 [facility] Comment on above: Performed By: #### U HCG, UAWMIC, UTOX2 #### [place] [address] Comp Metabolic Panelon 08-26 Albumin mass conc 3.6 g/dL Low 3.9-4.9 [facility] Comment on above: Performed By: #### U HCG, UAWMIC, UTOX2 #### [place] [address] ALP enzyme act/vol 112 U/L Normal 34-123 [facility] Comment on above: Performed By: #### U HCG, UAWMIC, UTOX2 #### [place] [address] ALT enzyme act/vol 38 U/L Normal 7-38 [facility] Comment on above: Performed By: #### U HCG, UAWMIC, UTOX2 #### [place] [address] Anion gap molar conc 11 mmol/L Normal 9-18 [facility] Comment on above: Performed By: #### U HCG, UAWMIC, UTOX2 #### [place] [address] AST enzyme act/vol 51 U/L High 13-35 [facility] Comment on above: Performed By: #### U HCG, UAWMIC, UTOX2 #### [place] [address] Bilirubin mass conc 0.3 mg/dL Normal 0.2-1.3 [facility] Comment on above: Performed By: #### U HCG, UAWMIC, UTOX2 #### [place] [address] Calcium mass conc 9.1 mg/dL Normal 8.5-10.2 [facility] Comment on above: Performed By: #### U HCG, UAWMIC, UTOX2 #### [place] [address] Chloride molar conc 103 mmol/L Normal 97-105 [facility] Comment on above: Performed By: #### U HCG, UAWMIC, UTOX2 #### [place] [id number] CO2 molar conc 24 mmol/L Normal 22-30 [facility] Comment on above: Performed By: #### U HCG, UAWMIC, UTOX2 #### [place] [address] Creatinine mass conc 0.88 mg/dL Normal 0.58-0.96 [facility] Comment on above: Performed By: #### U HCG, UAWMIC, UTOX2 #### [place] [address] eGFR- Amer. >60 Normal >60 [facility] Comment on above: Performed By: #### U HCG, UAWMIC, UTOX2 #### [place] [address] GFR/1.73 sq M predicted among non-blacks MDRD vol rate/area (S/P/Bld) mL/min/{1.73_m2} Normal >60 [facility] Comment on above: Result Comment: [...] By: #### U HCG, UAWMIC, UTOX2 #### [place] [address] Glucose mass conc 115 mg/dL High 74-99 [facility] Comment on above: Performed By: #### U HCG, UAWMIC, UTOX2 #### [place] [address] Potassium molar conc 4.1 mmol/L Normal 3.7-5.1 [facility] Comment on above: Performed By: #### U HCG, UAWMIC, UTOX2 #### [place] [address] Protein mass conc 5.6 g/dL Low 6.3-8.0 [facility] Comment on above: Performed By: #### U HCG, UAWMIC, UTOX2 #### [place] [address] Sodium molar conc 138 mmol/L Normal 136-144 [facility] Comment on above: Performed By: #### U HCG, UAWMIC, UTOX2 #### [place] [address] Urea nitrogen mass conc 9 mg/dL Normal 7-[address] [facility] Comment on above: Performed By: #### U HCG, UAWMIC, UTOX2 #### [place] [address] Magnesiumon 08-26-2018 Magnesium mass conc 2.4 mg/dL High 1.7-2.3 [facility] Comment on above: Performed By: #### U HCG, UAWMIC, UTOX2 #### [place] [address] PROGRESSon 08-26-2018 Protein mass conc HNO ID: [id number] Author: Lian Aparicio Service: ? Author Type: Physician Type: Progress Notes Filed: 10/20/2018 9:49 PM Note Text: [facility] - General Progress Note KAREN SOLIS : 1970 AGE: 48 SEX: F CSN: [id number] [facility] LOCATION: [facility] [place] ATTENDING PHYSICIAN: Bill Patten [...] edema Lian Aparicio M.D. Internal Medicine Normal [facility] Phosphoruson 08-26-2018 Phosphate mass conc 4.4 mg/dL Normal 2.7-4.8 [facility] Comment on above: Performed By: #### U HCG, UAWMIC, UTOX2 #### [facility] [address] [place] [id number] ALLIED HEALTHon 08-25-2018 ALLIED HEALTH HNO ID: [id number] Author: Katy (Therapist) Ct Service: Art Therapy [...] back of her poem. SIGNATURE: BUNNY Dean, [facility] PATIENT NAME: Karen Solis DATE: August 25, 2018 TIME: 3:45 PM [id number] Author: Lashell (Therapist) Britton Service: Art Therapy [...] happy she is alive. SIGNATURE: Lashell Jarquin [facility] PATIENT NAME: Karen Solis DATE: August 25, 2018 TIME: 1:38 PM [facility] HNO ID: [id number] Author: Katy (Therapist) Ct Service: Art Therapy [...] music and the groups. SIGNATURE: BUNNY Dean, [facility] PATIENT NAME: Karen Solis DATE: August 25, 2018 TIME: 11:24 AM Normal [facility] NURSING PROGon 08-25-2018 Protein mass conc HNO ID: [id number] Author: Padilla (Rn) MANI Lewis Service: Nursing Author Type: Registered Nurse Type: Nursing Progress Note Filed: 08/25/2018 6:56 AM Note Text: Nursing Progress Note Patient Name: Karen Solis Patient Location: [address]/[place] [address]* Daily Note:[id number] At beginning of shift pt observed to [...] note was completed by: Padilla Lewis RN [facility] ALLIED HEALTHon 08-24-2018 ALLIED HEALTH HNO ID: [id number] Author: RASHMI Alanis Service: Recreational Therapy Author [...] DATE: August 24, 2018 TIME: 3:36 PM [facility] ALLIED [facility] HNO ID: [id number] Author: Gifty De Luna (Lsw) Service: Art [...] the group. SIGNATURE: Gifty De Luna LPCATR, SNOW PLOW OPERATOR PATIENT NAME: Karen Solis DATE: August 24, 2018 TIME: 4:49 PM [facility] HNO ID: [id number] Author: Cathy Anna-AtrNany Corley, Therapist Service: Art Therapy Author Type: [...] DATE: August 24, 2018 TIME: 2:06 PM [facility] HNO ID: [id number] Author: Gifty De Luna (Lsw) Service: Art [...] and meetings. SIGNATURE: Gifty De Luna, ELOY,ATR, SNOW PLOW OPERATOR PATIENT NAME: Karen Solis DATE: August 24, 2018 TIME: 1:12 PM [facility] Hepatitis Remote Panelon HBsAg Negative Normal Negative [facility] Comment on above: Performed By: #### U HCG, UAWMIC, UTOX2 #### [place] [address] Hep B Core Ab,Total Negative Normal Negative [facility] Comment on above: Performed By: #### U HCG, UAWMIC, UTOX2 #### [place] [address] Hepatitis C Ab IA Negative Normal Negative [facility] Comment on above: Performed By: #### U HCG, UAWMIC, UTOX2 #### [place] [address] HepB Surface Ab,Qual Negative Normal Negative [facility] Comment on above: Result Comment: NEGA TIVE Performed By: #### U HCG, UAWMIC, UTOX2 #### [place] [address] NURSING PROGon 08-24-2018 Protein mass conc HNO ID: [id number] Author: Padilla MoctezumaRn) MANI Lewis Service: Nursing Author Type: Registered Nurse Type: Nursing Progress Note Filed: 08/24/2018 7:01 AM Note Text: Nursing Progress Note Patient Name: Karen Solis Patient Location: [address]/[facility]* Daily Note:[id number] At beginning of shift pt observed to [...] note was completed by: Padilla Lewis RN [facility] PROGRESSon 08-24-2018 Protein mass conc HNO ID: [id number] Author: Lian Aparicio Service: ? Author Type: Physician Type: Progress Notes Filed: 10/17/2018 11:37 PM Note Text: [facility] - General Progress Note KAREN SOLIS : 1970 AGE: 48 SEX: F CSN: [id number] [facility] [place]ATION: [facility] [place] ATTENDING PHYSICIAN: Bill Patten [...] Date - Chronic obstructive pulmonary disease (COPD) ([facility]) Social History Socioeconomic History Marital [...] No edema Lian Aparicio M.D. Internal Medicine [facility] Syphilis IgG with Confon Syphilis IgG <0.2 [facility] Comment on above: Result Comment: Anti body index is interpreted as follows: Non reactive SPECIMENS <=0.8 Weak reactive SPECIMENS 0.9 to 5.9 Reactive SPECIMENS >=6.0 Performed By: #### U HCG, UAWMIC, UTOX2 #### [place] [address] [place] [address] Syphilis IgG, Qual Nonreactive Normal Nonreactive [facility] Comment on above: Result Comment: No s erological evidence of infection with T. pallidum. Performed By: #### U HCG, UAWMIC, UTOX2 #### [place] [address] [place] [address] XR LUMBAR 2V AP/LATon 2018 XR LUMBAR [...] Left-sided convex curvature of the lumbar spine. Temperature Control Inspector: PSCB Transcribe Date/Time: Aug 24 2018 9:30A Dictated by : ARMAND EVANS MD This examination was interpreted and the report reviewed and electronically signed by: ARMAND EVANS MD on Aug 24 2018 9:33AM EST [id number] [id number] [facility] 08-23-2018 ALLIED [facility] HNO ID: [id number] Author: Cathy [facility]-AtrBlack Hess Service: Art Therapy Author Type: [...] to feel little better. SIGNATURE: Cathy Corley [facility] PATIENT NAME: Karen Solis DATE: August 23, 2018 TIME: 5:33 PM [facility] HNO ID: [id number] Author: Moncho Hollins (Chaplain) Service: Spiritual Care Author Type: Ror Engineer Type: Allied Health Filed: 08/23/2018 12:24 PM [...] DATE: August 23, 2018 TIME: 12:23 PM [facility] HNO ID: [id number] Author: Gifty De Luna (Lsw) Service: Art Therapy Author Type: Art Therapist Type: Allied Health Filed: 08/23/2018 11:16 AM Note Text: GROUP PROGRESS NOTE SERVICE DATE: 08/23/2018 SERVICE TIME: 9:30 AM Length (minutes): 60 Attendance: Sleeping Participation Level: Did Not Attend GROUP PARTICIPATION: Group Topics: Community Meeting: Reflective Quotes, Symptom AND Mood Check-In and Treatment Progress SIGNATURE: Gifty De Luna LPC,ATR, SNOW PLOW OPERATOR PATIENT NAME: Karen Solis DATE: August 23, 2018 TIME: 11:15 AM [facility] PROGRESSon 08-23-2018 Protein mass conc HNO ID: [id number] Author: Patsy Juarez Service: General Internal Medicine [...] Juarez MD DATE: August 23, 2018 Normal [facility] PROGRESSon 08-22-2018 Protein mass conc HNO ID: [id number] Author: Lian Aparicio Service: ? Author Type: Physician Type: Progress Notes Filed: 10/18/2018 10:26 PM Note Text: [facility] - General Progress Note KAREN SOLIS : 1970 AGE: 48 SEX: F CSN: [id number] [facility] LOCATION: [facility] [place] ATTENDING PHYSICIAN: Bill Patten [...] Date - Chronic obstructive pulmonary disease (COPD) ([facility]) Social History Socioeconomic History Marital [...] / radial Lian Aparicio M.D. [facility] HNO ID: [id number] Author: Gifty De Luna (Lsw) Service: Art [...] attempted to assess. Pt last on [facility] 2012. Therapist will continue to encourage her to attend groups once she is awake/alert. SIGNATURE: Gifty De Luna LPC, ATR, LSW PATIENT NAME: Karen Solis DATE: August 21, 2018 TIME: 1:48 PM PAGER/CONTACT #: [facility] HNO ID: [id number] Author: Gifty De Luna (Lsw) Service: Art [...] DATE: August 21, 2018 TIME: 2:08 PM [facility] ALLIED HEALTH HNO ID: [id number] Author: Gifty De Luna (Lsw) Service: Art Therapy Author Type: Art Therapist Type: Allied Health Filed: 08/21/2018 11:22 AM Note Text: GROUP PROGRESS NOTE SERVICE DATE: 08/21/2018 SERVICE TIME: 11:00 AM Length (minutes): 30 Attendance: Sleeping Participation Level: Did Not Attend GROUP PARTICIPATION: Group Topics: Community Resources: Alcoholics Anonymous SIGNATURE: Gifty De Luna ELOYATR, SNOW PLOW OPERATOR PATIENT NAME: Karen Solis DATE: August 21, 2018 TIME: 11:22 AM [facility] HEALTH HNO ID: [id number] Author: Gifty MoctezumaShaker Tenderzakia De Luna Service: Art Therapy Author Type: Art Therapist Type: Allied Health Filed: 08/21/2018 9:43 AM Note Text: GROUP PROGRESS NOTE SERVICE DATE: 08/21/2018 SERVICE TIME: 9:15 AM Length (minutes): 15 Attendance: Sleeping Participation Level: Did Not Attend GROUP PARTICIPATION: Group Topics: Community Meeting: Reflective Quotes, Symptom AND Mood Check-In and Treatment Progress SIGNATURE: Gifty De LunaELOYATR, SNOW PLOW OPERATOR PATIENT NAME: Karen Solis DATE: August 21, 2018 TIME: 9:43 AM [facility] CBC and Differentialon 08-21 Abs Baso 0.05 k/uL Normal <0.11 [facility] Comment on above: Performed By: #### C BCDIF, ALCO, CMP, MG1 #### [place] [address] Abs [place] 0.69 k/uL Normal <0.87 [facility] Comment on above: Performed By: #### C BCDIF, ALCO, CMP, MG1 #### [place] [address] Abs Neut 3.91 k/uL Normal 1.45-7.50 [facility] Comment on above: Performed By: #### C BCDIF, ALCO, CMP, MG1 #### [address] [address] Basophils/100 WBC (Bld) 0.8 % Normal [facility] Comment on above: Performed By: #### C BCDIF, ALCO, CMP, MG1 #### [place] [address] Eosinophils #/vol (Bld) 0.12 10*3/uL Normal <0.46 [facility] Comment on above: Performed By: #### C BCDIF, ALCO, CMP, MG1 #### [place] [address] Eosinophils/100 WBC (Bld) 1.8 % Normal [facility] Comment on above: Performed By: #### C BCDIF, ALCO, CMP, MG1 #### [place] [address] Erythrocyte distribution width Ratio (RBC) 14.2 % Normal 11.5-15.0 [facility] Comment on above: Performed By: #### C BCDIF, ALCO, CMP, MG1 #### [place] [address] Hematocrit Volume Fraction (Bld) 47.2 % High 36.0-46.0 [facility] Comment on above: Performed By: #### C BCDIF, ALCO, CMP, MG1 #### [place] [address] Hemoglobin mass conc (Bld) 17.0 g/dL High 11.5-15.5 [facility] Comment on above: Performed By: #### C BCDIF, ALCO, CMP, MG1 #### [place] [address] Lymphocytes #/vol (Bld) 1.89 10*3/uL Normal 1.00-4.00 [facility] Comment on above: Performed By: #### C BCDIF, ALCO, CMP, MG1 #### [place] [address] Lymphocytes/100 WBC (Bld) 28.4 % Normal [facility] Comment on above: Performed By: #### C BCDIF, ALCO, CMP, MG1 #### [place] [address] MCH Entitic mass (RBC) 32.7 pG Normal 26.0-34.0 [facility] Comment on above: Performed By: #### C BCDIF, ALCO, CMP, MG1 #### [place] [address] MCHC mass conc (RBC) 36.0 g/dL Normal 30.5-36.0 [facility] Comment on above: Performed By: #### C BCDIF, ALCO, CMP, MG1 #### [place] [address] MCV Entitic volume (RBC) 90.8 fL Normal 80.0-100.0 [facility] Comment on above: Performed By: #### C BCDIF, ALCO, CMP, MG1 #### [place] [address] Monocytes/100 WBC (Bld) 10.4 % Normal [facility] Comment on above: Performed By: #### C BCDIF, ALCO, CMP, MG1 #### [place] [address] Neutrophils/100 WBC (Bld) 58.6 % Normal [facility] Comment on above: Performed By: #### C BCDIF, ALCO, CMP, MG1 #### [place] [address] NRBCs 0.0 /100 WBC Normal 0 [facility] Comment on above: Performed By: #### C BCDIF, ALCO, CMP, MG1 #### [place] [address] Platelet mean volume Entitic volume (Bld) 9.1 fL Normal 9.0-12.7 [facility] Comment on above: Performed By: #### C BCDIF, ALCO, CMP, MG1 #### [place] [address] Platelets #/vol (Bld) 278 10*3/uL Normal 150-400 [facility] Comment on above: Performed By: #### C BCDIF, ALCO, CMP, MG1 #### [place] [address] RBC #/vol (Bld) 5.20 10*6/uL Normal 3.90-5.20 [facility] Comment on above: Performed By: #### C BCDIF, ALCO, CMP, MG1 #### [place] [address] WBC #/vol (Bld) 6.66 10*3/uL Normal 3.70-11.00 [facility] Comment on above: Performed By: #### C BCDIF, ALCO, CMP, MG1 #### [place] [address] Comp Metabolic Panelon 08-21 Albumin mass conc 4.6 g/dL Normal 3.9-4.9 [facility] Comment on above: Performed By: #### C BCDIF, ALCO, CMP, MG1 ####[place] [id number] ALP enzyme act/vol 152 U/L High 34-123 [facility] Comment on above: Performed By: #### C BCDIF, ALCO, CMP, MG1 ####[place] [id number] ALT enzyme act/vol 31 U/L Normal 7-38 [facility] Comment on above: Performed By: #### C BCDIF, ALCO, CMP, MG1 ####[place] [id number] Anion gap molar conc 13 mmol/L Normal 9-18 [facility] Comment on above: Performed By: #### C BCDIF, ALCO, CMP, MG1 ####[place] [id number] AST enzyme act/vol 44 U/L High 13-35 [facility] Comment on above: Performed By: #### C BCDIF, ALCO, CMP, MG1 ####[place] [id number] Bilirubin mass conc 0.2 mg/dL Normal 0.2-1.3 [facility] Comment on above: Performed By: #### C BCDIF, ALCO, CMP, MG1 ####[place] [id number] Calcium mass conc 9.1 mg/dL Normal 8.5-10.2 [facility] Comment on above: Performed By: #### C BCDIF, ALCO, CMP, MG1 ####[place] [id number] Chloride molar conc 97 mmol/L Normal 97-105 [facility] Comment on above: Performed By: #### C BCDIF, ALCO, CMP, MG1 ####[place] [id number] CO2 molar conc 26 mmol/L Normal 22-30 [facility] Comment on above: Performed By: #### C BCDIF, ALCO, CMP, MG1 ####[place] [id number] Creatinine mass conc 0.69 mg/dL Normal 0.58-0.96 [facility] Comment on above: Performed By: #### C BCDIF, ALCO, CMP, MG1 ####[place] [id number] eGFR- Amer. >60 Normal >60 [facility] Comment on above: Performed By: #### C BCDIF, ALCO, CMP, MG1 ####[place] [id number] GFR/1.73 sq M predicted among non-blacks MDRD vol rate/area (S/P/Bld) mL/min/{1.73_m2} Normal >60 [facility] Comment on above: Result Comment: [...] reflect actual GFR. Performed By: #### C BCDIF ALCO CMP, MG1 ####[place] [id number] Glucose mass conc 124 mg/dL High 74-99 [facility] Comment on above: Performed By: #### C BCDIF, ALCO, CMP, MG1 ####[place] [id number] Potassium molar conc 3.6 mmol/L Low 3.7-5.1 [facility] Comment on above: Performed By: #### C BCDIF, ALCO, CMP, MG1 ####[place] [id number] Protein mass conc 7.5 g/dL Normal 6.3-8.0 [facility] Comment on above: Performed By: #### C BCDIF, ALCO, CMP, MG1 ####[place] [id number] Sodium molar conc 136 mmol/L Normal 136-144 [facility] Comment on above: Performed By: #### C BCDIF, ALCO, CMP, MG1 ####[place] [id number] Urea nitrogen mass conc 5 mg/dL Low 7-[address] [facility] Comment on above: Performed By: #### C BCDIF, ALCO, CMP, MG1 ####[facility] [phone] ECG COMPLETEon 08-21-2018 ECG COMPLETE NAME : KAREN SOLIS PID : [id number] : 1970 Gender : Female Race : ORD : [id number] Procedure Date : Aug 20 2018 23:08:21 Edit Date : Aug 22 2018 10:03:53 Diagnosis:SINUS RHYTHM PROBABLE LEFT ATRIAL ABNORMALITY PROBABLE INFERIOR INFARCT, OLD BORDERLINE PROLONGED QT INTERVAL Abnormal ECG No Stemi ROSA MARIA 08/20 @ 2328 Confirmed by DO CRANE NICHOLAS ([id number]), film editor supervisor DIONY MASCORRO ([id number]) on 08/22/2018 10:03:50 AM Ventricular Rate : 94 BPM Atrial Rate : 94 BPM P-R Interval : 196 ms QRS Duration : 82 ms Q-T Interval : 400 ms QTC Calculation(Bezet) : 500 ms P [place] : 74 degrees R [place] : 23 degrees T [place] : 46 degrees Test Reason : Pre-OP Location : 502 : ED 5 Overread By : DO CRANE NICHOLAS Edited By : DIONY MASCORRO Referred By : , Acquired by : , [facility] ED NOTEon 08-21-2018 ED NOTE HNO ID: [id number] Author: Mary MoctezumaRn) MANI Quintana Service: (none) Author Type: Registered Nurse Type: ED Notes Filed: 08/21/2018 12:00 AM Note Text: Patient resting in bed, rise and fall of chest observed. Safety maintained and will continue to monitor [facility] ED NOTE HNO ID: [id number] Author: Mary MoctezumaRn) Lilian, MANI Service: (none) Author Type: Registered Nurse Type: ED Notes Filed: 08/20/2018 11:38 PM Note Text: Medication given. Patient educated on medication and verbalized understanding. Patient agreeable with POC. Will continue to monitor. [facility] ED NOTE HNO ID: [id number] Author: Mary MoctezumaRn) Lilian, MANI Service: (none) Author Type: Registered Nurse Type: ED Notes Filed: 08/20/2018 11:26 PM Note Text: Intake at bedside [facility] ED NOTE HNO ID: [id number] Author: Mary (Rn) MANI Quintana Service: (none) Author Type: Registered Nurse Type: ED Notes Filed: 08/20/2018 11:14 PM Note Text: Labs were drawn and sent. [facility] ED NOTE HNO ID: [id number] Author: Mary MoctezumaRn) MANI Quintana Service: (none) Author Type: Registered Nurse Type: ED Notes Filed: 08/20/2018 11:11 PM Note Text: Medication given. Patient educated on medication and verbalized understanding. Patient agreeable with POC. Will continue to monitor. [facility] ED NOTE HNO ID: [id number] Author: Gwendolyn MoctezumaRn) Clem Rod RN Service: Nursing Author Type: Registered Nurse Type: ED Notes Filed: 08/20/2018 10:55 PM Note Text: Clean catch urine specimen obtained and sent. [facility] ED NOTE HNO ID: [id number] Author: Rubén MoctezumaRn) MANI Gray Service: (none) Author Type: Registered Nurse Type: ED Notes Filed: 08/20/2018 10:53 PM Note Text: Patient has an ID Band on, family at bedside, bed in lowest locked position. Patient provided hospital gown and pants and non slip socks. Patient to restroom to provide sample at this time. [facility] ED PROV NOTEon 08-21-2018 Protein mass conc HNO ID: [id number] Author: Ramin Crane DO Service: Emergency Medicine [...] provided by: Patient, medical records and relative japanese interpreter used: No PAST MEDICAL HISTORY Diagnosis [...] per minute AXIS: Normal axis INTERVALS: Normal MI interval QRS COMPLEX: Normal ST SEGMENT: Normal [...] DO Ramin Ventura DO 08/20/18 2347 Normal [facility] Ethanolon 08-21-2018 Ethanol mass conc 247 mg/dL High <11 [facility] Comment on above: Performed By: #### C BCDIF, ALCO, CMP, MG1 #### [place] [address] HCG Qual, Urineon 08-21-2018 HCG.beta subunit ( test) Ql (U) Negative Normal Negative [facility] Comment on above: Performed By: #### U HCG, UAWMIC, UTOX2 #### [place] [id number] Magnesiumon 08-21-2018 Magnesium mass conc 2.2 mg/dL Normal 1.7-2.3 [facility] Comment on above: Performed By: #### C BCDIF, ALCO, CMP, MG1 ####[address], [place] [phone] NURSING PROGon 08-21-2018 Protein mass conc HNO ID: [id number] Author: Padilla (Rn) MANI Lewis Service: Nursing Author Type: Registered Nurse Type: Nursing Progress Note Filed: 08/21/2018 6:37 AM Note Text: Nursing Progress Note Patient Name: Karen Solis Patient Location: [id number]* SENSITIVE [facility] Nursing Admission Note PATIENT NAME: Karen Solis SERVICE DATE: 08/21/2018 SERVICE TIME: 0415 Level of care:Inpatient Hospital Referred by: Silvia LOU 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 Insurance status:[employer] Presenting Problem: drinking 15 beers daily x [...] toe assessment: Patient presented to the [facility] dressed in a hospital gown [...] note was completed by: Padilla Lewis RN [facility] Protein mass conc HNO ID: [id number] Author: Padilla (Rn) MANI Lewis Service: Nursing Author Type: Registered Nurse Type: Nursing Progress Note Filed: 08/21/2018 6:30 AM Note Text: Nursing Progress Note Patient Name: Karen Solis Patient Location: [address]/[place] [address]* SENSITIVE [facility] SUICIDE RISK ASSESSMENT PATIENT NAME: Karen Solis SERVICE DATE: 08/21/2018 SERVICE TIME: 0410 LETHALITY FACTORS: Access to Means: Any firearms in home?No Moved a firearm recently?No Any current suicide plan not involving firearm? No Is patient an inpatient in [facility]?Yes--does any suicide plan suggest risk [...] Presence of Meaningful Daily Activities?Yes Currently employed?No Lutheran Affiliation?Yes Therapeutic [place]: Does pt believe treatment can help his/her negative feelings?Yes History of good medication compliance in past?Yes FORMULATION OF SUICIDE RISK: low Will any interventions be undertaken to address above-listed Lethality or Protective Factors? Reduce alcohol and drug abuse Consult Pastoral Care to improve hoahaoism affiliation SIGNATURE: Padilla Lewis RN DATE: August 21, 2018 TIME: 6:27 AM Assessment adapted from Suicide Prevention Toolkit for Implementation of NPSG 15A by [facility] Resources This note was completed by: Padilla Lewis RN Normal [facility] PROGRESSon 08-21-2018 Protein mass conc HNO ID: [id number] Author: Lian Aparicio Service: ? Author Type: Physician Type: Progress Notes Filed: 10/17/2018 7:16 PM Note Text: [facility] - General Progress Note KAREN SOLIS : 1970 AGE: 48 SEX: F CSN: [id number] HOSP SVC: PSYR LOCATION: [facility] [place] ATTENDING PHYSICIAN: Bill Patten [...] aerosol treatment. Lian Aparicio M.D. Internal Medicine JOYNER:[id number] [facility] Protein mass conc HNO ID: [id number] Author: Downtime Note Service: ? Author Type: ? Type: Progress Notes Filed: 08/21/2018 5:27 AM Note Text: Epic Scheduled Downtime: 08/21/2018 1:00:00 AM to 08/21/2018 5:17:00 AM [facility] Toxicology Screen,Uron 08-21 Amphetamines, Urine Negative Normal Negative [facility] Comment on above: Result Comment: Cuto ff threshold at 1000 ng/mL. Performed By: #### U HCG, UAWMIC, UTOX2 #### [place] [phone] Barbiturates, Urine Negative Normal Negative [facility] Comment on above: Result Comment: Cuto ff threshold at 200 ng/mL. Performed By: #### U HCG, UAWMIC, UTOX2 #### [place] [phone] Benzodiazepines, Ur Negative Normal Negative [facility] Comment on above: Result Comment: Cuto ff threshold at 200 ng/mL. Performed By: #### U HCG, UAWMIC, UTOX2 #### [place] [address] Cannabinoids, Urine Negative Normal Negative [facility] Comment on above: Result Comment: Cuto ff threshold at 50 ng/mL. Performed By: #### U HCG, UAWMIC, UTOX2 #### [place] [phone] Cocaine, Urine Negative Normal Negative [facility] Comment on above: Result Comment: Cuto ff threshold at 300 ng/mL. Performed By: #### U HCG, UAWMIC, UTOX2 #### [place] [address] Ethanol, Urine 291 mg/dL High <11 [facility] Comment on above: Performed By: #### U HCG, UAWMIC, UTOX2 #### [place] [address] Opiates, Urine Negative Normal Negative [facility] Comment on above: Result Comment: Cuto ff threshold at 300 ng/mL. Performed By: #### U HCG, UAWMIC, UTOX2 #### [place] [address] Oxycodone, Urine Negative Normal Negative [facility] Comment on above: Result Comment: Cuto [...] on the same specimen through Client Services ([phone]) if contacted within 48 hours of initial testing. [1]Substance Abuse and Mental Health Services Administration (2012). Clinical Drug Testing in Primary Care Technical Assistance Publication Series 32. Department of Health and Human Services, [place], p.10. Performed By: #### U HCG, UAWMIC, UTOX2 #### [place] [address] Phencyclidine, Urine Negative Normal Negative [facility] Comment on above: Result Comment: Cuto ff threshold at 25 ng/mL. Performed By: #### U HCG, UAWMIC, UTOX2 #### [place] [address] Urinalysis with Microscopico n 08-21-2018 Bilirubin, Urine Negative Normal Negative [facility] Comment on above: Performed By: #### U HCG, UAWMIC, UTOX2 #### [place] [address] Cast SEE COMMENT Normal 0 [facility] Comment on above: Result Comment: 0 Performed By: #### U HCG, UAWMIC, UTOX2 #### [place] [address] Clarity Nom (U) Clear Normal Clear [facility] Comment on above: Performed By: #### U HCG, UAWMIC, UTOX2 #### [place] [address] Color Nom (U) Straw Critically abnormal Yellow [facility] Comment on above: Performed By: #### U HCG, UAWMIC, UTOX2 #### [place] [address] Epithelial cells LM.HPF #/area (Urine sed) SEE COMMENT Normal [facility] Comment on above: Result Comment: Squa mous 2-5 Performed By: #### U HCG, UAWMIC, UTOX2 #### [place] [address] Glucose Ql (U) Negative Normal Negative [facility] Comment on above: Performed By: #### U HCG, UAWMIC, UTOX2 #### [place] [address] Hemoglobin/Blood,Ur Trace Critically abnormal Negative [facility] Comment on above: Performed By: #### U HCG, UAWMIC, UTOX2 #### [place] [address] Ketones Ql (U) Negative Normal Negative [facility] Comment on above: Performed By: #### U HCG, UAWMIC, UTOX2 #### [place] [address] Leukest Trace Critically abnormal Negative [facility] Comment on above: Performed By: #### U HCG, UAWMIC, UTOX2 #### [place] [address] Nitrite Ql (U) Negative Normal Negative [facility] Comment on above: Performed By: #### U HCG, UAWMIC, UTOX2 #### [place] [address] pH (Bld) 6.0 Normal 4.5-8.0 [facility] Comment on above: Performed By: #### U HCG, UAWMIC, UTOX2 #### [place] [address] Protein mass conc (U) Negative Normal Negative [facility] Comment on above: Performed By: #### U HCG, UAWMIC, UTOX2 #### [place] [address] RBC #/vol (U) 0-3 Normal 0-3 [facility] Comment on above: Performed By: #### U HCG, UAWMIC, UTOX2 #### [place] [address] Specific [place], Ur <=1.005 Normal 1.005-1.030 [facility] Comment on above: Performed By: #### U HCG, UAWMIC, UTOX2 #### [place] [address] Urobilinogen Qn (U) 0.2 Normal 0.2-1.0 [facility] Comment on above: Performed By: #### U HCG, UAWMIC, UTOX2 #### [place] [address] WBC #/vol (Bld) 0-5 Normal 0-5 [facility] Comment on above: Performed By: #### U HCG, UAWMIC, UTOX2 #### [place] [address] HISTORY PHYSICALon 9 HISTORY PHYSICAL HNO ID: [id number] Author: Lian Aparicio Service: ? Author Type: Physician Type: HANDP Filed: 08/23/2018 4:01 PM Note Text: [facility] - History and Physical KAREN SOLIS : 1970 AGE: 48 SEX: F CSN: [id number] [facility] LOCATION: [facility] [place] [facility] ATTENDING PHYSICIAN: NALINI NI [...] Date - Chronic obstructive pulmonary disease (COPD) ([facility]) Social History Socioeconomic History Marital [...] reviewed and negative. [facility] Most recent images [...] F/u cmp Lian Aparicio M.D. Internal Medicine [facility] Vital Signs Date Time Vital Sign Value Performing Clinician Facility 08-02-2024 15:38-0500 Body height 170.[address] [facility] 08-02-2024 15:38-0500 Body mass index (BMI) [Ratio] 24.3 kg/m2 [facility] 08-02-2024 15:38-0500 Body temperature 98.5 [degF] [facility] 08-02-2024 15:38-0500 Body weight 70.[address] [facility] 08-02-2024 15:38-0500 Diastolic blood pressure 70 mm[Hg] [facility] 08-02-2024 15:38-0500 Heart rate 73 /min [facility] 08-02-2024 15:38-0500 SaO2% (BldA) [Mass fraction] 96 % [facility] 08-02-2024 15:38-0500 Systolic blood pressure 112 mm[Hg] [facility] 11-06-2023 10:56-0400 Body height 170.[address] [facility] 11-06-2023 10:56-0400 Body mass index (BMI) [Ratio] 23.6 kg/m2 [facility] 11-06-2023 10:56-0400 Body weight 68.[address] [facility] 11-06-2023 10:56-0400 Diastolic blood pressure 76 mm[Hg] [facility] 11-06-2023 10:56-0400 Heart rate 72 /min [facility] 11-06-2023 10:56-0400 Respiratory rate 18 /min [facility] 11-06-2023 10:56-0400 SaO2% (BldA) [Mass fraction] 99 % [facility] 11-06-2023 10:56-0400 Systolic blood pressure 118 mm[Hg] [facility] 07-20-2023 13:15-0500 Body height 170.18 cm Isiah Riderley Other [facility] 07-20-2023 13:15-0500 Body mass index (BMI) [Ratio] 22.71 kg/m2 Isiah Jazzy Other [facility] [employer] Other 07-20-2023 13:15-0500 Body weight 65.77 kg Isiah Jazzy Other [facility] 06-10-2023 14:45-0500 Diastolic blood pressure 82 mm[Hg] DO Christin Grullon Work Phone: [facility] 06-10-2023 14:45-0500 Heart rate 70 /min DO Christin Grullon Work Phone: [facility] 06-10-2023 14:45-0500 Respiratory rate 16 /min DO Christin Grullon Work Phone: [facility] 06-10-2023 14:45-0500 SaO2% (BldA) [Mass fraction] 96 % DO Christin Grullon Work Phone: [facility] 06-10-2023 14:45-0500 Systolic blood pressure 132 mm[Hg] DO Christin Grullon Work Phone: [facility] 06-10-2023 12:17-0500 Body temperature 97.7 [degF] DO Christin Grullon Work Phone: [facility] 06-10-2023 12:17-0500 Inhaled oxygen flow rate 6 L/min DO Christin Grullon Work Phone: [facility] 06-10-2023 09:27-0500 Body height 167.64 cm DO Christin Grullon Work Phone: [facility] 06-10-2023 09:27-0500 Body mass index (BMI) [Ratio] 23.5 kg/m2 DO Christin Grullon Work Phone: [facility] 06-10-2023 09:27-0500 Body weight 66 kg DO Christin Grullon Work Phone: [facility] 05-25-2023 10:15-0500 Body height 170.18 cm Isiah Riderley Other [employer] Other 05-25-2023 10:15-0500 Body mass index (BMI) [Ratio] 23.02 kg/m2 Isiah Riderley Other [employer] Other 05-25-2023 10:15-0500 Body weight 66.68 kg Isiah Riderley Other [employer] Other 05-05-2023 09:20-0500 Diastolic blood pressure 74 mm[Hg] DO Christin Grullon Work Phone: [facility] 05-05-2023 09:20-0500 Heart rate 66 /min DO Christin Grullon Work Phone: [facility] 05-05-2023 09:20-0500 Respiratory rate 16 /min DO Christin Grullon Work Phone: [facility] 05-05-2023 09:20-0500 SaO2% (BldA) [Mass fraction] 100 % DO Christin Grullon Work Phone: [facility] 05-05-2023 09:20-0500 Systolic blood pressure 120 mm[Hg] DO Christin Alcocerley Work Phone: [facility] 05-05-2023 08:42-0500 Inhaled oxygen flow rate 3 L/min DO Christin Alcocerley Work Phone: [facility] 05-05-2023 07:59-0500 Body height 167.64 cm DO Christin Alcocerley Work Phone: [facility] 05-05-2023 07:59-0500 Body weight 63.5 kg DO Christin Alcocerley Work Phone: [facility] 03-17-2023 14:30-0400 Body height 170.18 cm Christin Mead Other [employer] Other 02-24-2023 14:20-0400 Body height 170.18 cm Clovis Andersen Other [employer] Other 02-24-2023 14:20-0400 Body mass index (BMI) [Ratio] 23.02 kg/m2 Clovis Andersen Other [employer] Other 02-24-2023 14:20-0400 Body weight 66.68 kg Clovis Andersen Other [employer] Other 02-24-2023 14:20-0400 Diastolic blood pressure 70 mm[Hg] Clovis Andersen Other [employer] Other 02-24-2023 14:20-0400 Systolic blood pressure 104 mm[Hg] Clovis Andersen Other [employer] Other 12-05-2022 12:00-0400 Body height 170.18 cm Christin Grullon Other [employer] Other 12-05-2022 12:00-0400 Body mass index (BMI) [Ratio] 20.83 kg/m2 Christin Grullon Other [employer] Other 12-05-2022 12:00-0400 Body weight 60.33 kg Christin Grullon Other [employer] Other 12-05-2022 12:00-0400 Diastolic blood pressure 62 mm[Hg] Christin Grullon Other [employer] Other 12-05-2022 12:00-0400 Respiratory rate 18 /min Christin Grullon Other [employer] Other 12-05-2022 12:00-0400 SaO2% (BldA) [Mass fraction] 98 % Christin Grullon Other [employer] Other 12-05-2022 12:00-0400 Systolic blood pressure 118 mm[Hg] Christin Grullon Other [employer] Other 09-26-2022 11:00-0400 Body height 170.18 cm Pratik Cross Other [employer] Other 09-26-2022 11:00-0400 Body mass index (BMI) [Ratio] 20.36 kg/m2 Pratik Cross Other [employer] Other 09-26-2022 11:00-0400 Body weight 58.97 kg Pratik [place] Other [employer] Other 07-16-2022 16:30-0500 Body height 170.18 cm Christin Grullon Other [employer] Other 07-16-2022 16:30-0500 Body mass index (BMI) [Ratio] 19.58 kg/m2 Christin Grullon Other [employer] Other 07-16-2022 16:30-0500 Body weight 56.7 kg Christin Grullon Other [employer] Other 07-16-2022 16:30-0500 Diastolic blood pressure 82 mm[Hg] Christin Grullon Other [employer] Other 07-16-2022 16:30-0500 Respiratory rate 18 /min Christin Grullon Other [employer] Other 07-16-2022 16:30-0500 SaO2% (BldA) [Mass fraction] 98 % Christin Grullon Other [employer] Other 07-16-2022 16:30-0500 Systolic blood pressure 136 mm[Hg] Christin Alcocerley Other [employer] Other 07-14-2022 11:00-0500 Body temperature 97.7 [degF] DO Christin Grullon Work Phone: [facility] 07-14-2022 11:00-0500 Diastolic blood pressure 75 mm[Hg] DO Christin Grullon Work Phone: [facility] 07-14-2022 11:00-0500 Heart rate 72 /min DO Christin Grullon Work Phone: [facility] 07-14-2022 11:00-0500 Respiratory rate 20 /min DO Christin Grullon Work Phone: [facility] 07-14-2022 11:00-0500 SaO2% (BldA) [Mass fraction] 98 % DO Christin Grullon Work Phone: [facility] 07-14-2022 11:00-0500 Systolic blood pressure 126 mm[Hg] DO Christin Grullon Work Phone: [facility] 07-10-2022 16:43-0500 Body weight 0 kg DO Christin Grullon Work Phone: [facility] 05-19-2022 14:15-0500 Body height 170.18 cm Christin Grullon Other [employer] [facility] [employer] Other 05-19-2022 14:15-0500 Body mass index (BMI) [Ratio] 19.73 kg/m2 Christin Grullon Other [employer] Other 05-19-2022 14:15-0500 Body weight 57.15 kg Christin Grullon Other [employer] Other 05-19-2022 14:15-0500 Diastolic blood pressure 77 mm[Hg] Christin Grullon Other [employer] Other 05-19-2022 14:15-0500 Respiratory rate 18 /min Christin Grullon Other [employer] Other 05-19-2022 14:15-0500 SaO2% (BldA) [Mass fraction] 99 % Christin Grullon Other [employer] Other 05-19-2022 14:15-0500 Systolic blood pressure 135 mm[Hg] Christin Grullon Other [employer] Other 05-01-2021 11:15-0500 Body height 170.18 cm Christin Grullon Other [employer] Other 05-01-2021 11:15-0500 Body mass index (BMI) [Ratio] 17.85 kg/m2 Christin Grullon Other [employer] Other 05-01-2021 11:15-0500 Body temperature 97.8 [degF] Christin Grullon Other [employer] Other 05-01-2021 11:15-0500 Body weight 51.71 kg Christin Grullon Other [employer] Other 05-01-2021 11:15-0500 Diastolic blood pressure 84 mm[Hg] Christin Grullon Other [employer] Other 05-01-2021 11:15-0500 Respiratory rate 16 /min Christin Grullon Other [employer] Other 05-01-2021 11:15-0500 SaO2% (BldA) [Mass fraction] 100 % Christin Grullon Other [employer] Other 05-01-2021 11:15-0500 Systolic blood pressure 128 mm[Hg] Christin Grullon Other [employer] Other 03-20-2021 14:15-0400 Body height 170.18 cm Christin Grullon Other [employer] Other 03-20-2021 14:15-0400 Body mass index (BMI) [Ratio] 18.32 kg/m2 Christin Grullon Other [employer] Other 03-20-2021 14:15-0400 Body temperature 99 [degF] Christin Grullon Other [employer] Other 03-20-2021 14:15-0400 Body weight 53.07 kg Christin Grullon Other [employer] Other 03-20-2021 14:15-0400 Diastolic blood pressure 84 mm[Hg] Christin Grullon Other [employer] Other 03-20-2021 14:15-0400 Respiratory rate 16 /min Christin Grullon Other [employer] Other 03-20-2021 14:15-0400 SaO2% (BldA) [Mass fraction] 98 % Christin Grullon Other [employer] Other 03-20-2021 14:15-0400 Systolic blood pressure 118 mm[Hg] Christin Grullon Other [employer] Other Encounters Encounter Date Encounter Type Care Provider Facility Start: 01-23-2025 End: 01-23-2025 ambulatory Damien Pastrana MD Facility:[facility] Start: 11-23-2024 End: 11-23-2024 Patient encounter procedure Christin Grullon DO Work Phone: [facility] Work Phone: Start: 11-23-2024 End: 11-23-2024 ambulatory Christin Grullon Work Phone: [facility] Work Phone: Start: 11-22-2024 End: 11-22-2024 Patient encounter procedure Christin Grullon Work Phone: [facility] Work Phone: Start: 11-22-2024 End: 11-22-2024 ambulatory Christin Story Grullon Work Phone: [facility] Work Phone: Start: 08-15-2024 End: 08-15-2024 ambulatory Damien Pastrana MD Facility:[facility] Start: 08-02-2024 End: 08-02-2024 ambulatory [facility] Work Phone: Start: 08-02-2024 End: 08-02-2024 Patient encounter procedure [facility] [place] Work Phone: Start: 05-02-2024 End: 05-02-2024 ambulatory Damien Pastrana MD Facility:[facility] Start: 02-15-2024 End: 02-15-2024 ambulatory Damien Pastrana MD Facility: [facility] Start: 11-09-2023 End: 11-09-2023 ambulatory [facility] Work Phone: Start: 11-09-2023 End: 11-09-2023 Patient encounter procedure [facility] Work Phone: Start: 11-06-2023 End: 11-06-2023 ambulatory [facility] Work Phone: Start: 11-06-2023 End: 11-06-2023 Patient encounter procedure [facility] [place] Work Phone: Start: 10-14-2023 End: 10-14-2023 ambulatory [facility] Work Phone: Start: 10-14-2023 End: 10-14-2023 Patient encounter procedure [facility] Work Phone: Start: 10-14-2023 Non-patient / Non-visit [facility] Work Phone: Start: 09-30-2023 Non-patient / Non-visit [facility] Work Phone: Start: 09-16-2023 End: 09-16-2023 ambulatory DO Christin Grullon Work Phone: [facility] Work Phone: Start: 09-16-2023 End: 09-16-2023 Patient encounter procedure DO Christin Grullon Work Phone: [facility] Work Phone: Start: 09-16-2023 Non-patient / Non-visit [facility] Work Phone: Start: 09-14-2023 Non-patient / Non-visit DO Ben Grullon Work Phone: [facility] Work Phone: Start: 08-27-2023 End: 08-27-2023 Patient encounter procedure DO Christin Grullon Work Phone: [facility] Work Phone: Start: 07-20-2023 End: 07-20-2023 ambulatory Isiah Purcell Other [facility] [employer] Other Start: 07-20-2023 Postop follow up vis it related to original px Isiah Jazzy [facility] Start: 07-20-2023 End: 07-20-2023 Patient encounter procedure DO Christin Grullon Work Phone: [facility]- Start: 06-24-2023 End: 06-24-2023 ambulatory Isiah Purcell Other [facility] [employer] Other Start: 06-24-2023 Telephone encounter Isiah Purcell [facility] Start: 06-23-2023 Postop follow up vis it related to original px Isiah Jazzy [facility] Start: 06-23-2023 End: 06-23-2023 ambulatory DO Christin Grullon Work Phone: [facility] Work Phone: Start: 06-23-2023 End: 06-23-2023 Patient encounter procedure DO Christin Grullon Work Phone: [facility] Start: 06-23-2023 End: 06-23-2023 Patient encounter procedure DO Christin Grullon Work Phone: [facility] Work Phone: Start: 06-18-2023 End: 06-18-2023 ambulatory Isiah Purcell Other [facility] [employer] Other Start: 06-18-2023 Telephone encounter Isiah Purcell [facility] Start: 06-16-2023 End: 06-16-2023 ambulatory Julee Khan Other [employer] Other Start: 06-16-2023 [address]phone [address] Julee Bill [facility] Start: 06-10-2023 End: 06-10-2023 Admission to same day surgery center DO Christin Grullon Work Phone: [facility] [place] Start: 06-09-2023 End: 06-09-2023 ambulatory Isiah Purcell Other [employer] Other Start: 06-09-2023 Telephone encounter Isiah Purcell [facility] Start: 06-08-2023 (Procedure) Brad Mead [facility] Start: 06-08-2023 End: 06-08-2023 ambulatory Christin Mead Other [employer] Other Start: 06-01-2023 End: 06-01-2023 ambulatory DO Christin Grullon Work Phone: [facility] Work Phone: Start: 06-01-2023 End: 06-01-2023 Patient encounter procedure DO Christin Grullon Work Phone: [facility]Pre-Surgical Testing Work Phone: Start: 05-26-2023 End: 05-26-2023 ambulatory Christin Mead Other [employer] Other Start: 05-26-2023 Office outpatient vi sit [address] [facility] [place] Start: 05-25-2023 End: 05-25-2023 ambulatory Isiah Purcell Other [employer] Other Start: 05-25-2023 Encounter by cresencio Grullon [facility] Start: 05-25-2023 Encounter for other preprocedural examination Isiah Purcell [facility] Start: 05-25-2023 Office outpatient vi sit [address] [facility] Start: 05-05-2023 (Procedure) Short Christin Mead [facility] Start: 05-05-2023 End: 05-05-2023 Admission to same day surgery center DO Christin Grullon Work Phone: [facility] Work Phone: Start: 05-05-2023 End: 05-05-2023 ambulatory DO Christin Grullon Work Phone: [facility] Work Phone: Start: 05-04-2023 End: 05-04-2023 ambulatory Christin Mead Other [employer] Other Start: 05-04-2023 Telephone encounter Christin TAN [facility] Start: 04-29-2023 End: 04-29-2023 ambulatory Pratik Cross Other [employer] Other Start: 04-29-2023 Office outpatient vi sit [address] [facility] Start: 04-03-2023 End: 04-03-2023 ambulatory Pratik Cross Other [employer] Other Start: 04-03-2023 Telephone encounter Pratik TAN [facility] Start: 04-02-2023 End: 04-02-2023 ambulatory DO Christin Grullon Work Phone: [facility] Work Phone: Start: 04-02-2023 End: 04-02-2023 Patient encounter procedure DO Christin Grullon Work Phone: [facility] [address] Work Phone: Start: 03-17-2023 End: 03-17-2023 ambulatory Christin Mead Other [employer] Other Start: 03-17-2023 Office outpatient ne w [address] [facility] [place] Start: 03-17-2023 Telephone encounter Christin Reyes [employer] Start: 02-24-2023 End: 02-24-2023 Patient encounter procedure DO Christin Grullon Work Phone: [facility] [address] Work Phone: Start: 02-24-2023 End: 02-24-2023 ambulatory DO Christin Grullon Work Phone: [facility] Work Phone: Start: 02-24-2023 Office outpatient ne w [address] [facility] Start: 12-31-2022 End: 12-31-2022 ambulatory Christin Grullon Other [employer] Other Start: 12-31-2022 Telephone encounter Christin Reyes [facility] [place] Start: 12-22-2022 End: 12-22-2022 ambulatory Christin Grullon Other [employer] Other Start: 12-22-2022 Telephone encounter Christin Reyes [facility] [place] Start: 12-05-2022 End: 12-05-2022 ambulatory Christin Grullon Other [employer] Other Start: 12-05-2022 Office outpatient vi sit [address] [facility] [place] Start: 09-26-2022 End: 09-26-2022 ambulatory Pratik Cross Other [employer] Other Start: 09-26-2022 Office outpatient ne w [address] [facility] Start: 09-24-2022 End: 09-24-2022 ambulatory DO Christin Grullon Work Phone: [facility] Work Phone: Start: 09-24-2022 End: 09-24-2022 Patient encounter procedure DO Christin Grullon Work Phone: [facility] [address] Work Phone: Start: 07-31-2022 End: 07-31-2022 ambulatory Christin Grullon Other [employer] Other Start: 07-31-2022 Telephone encounter Christin Reyes [facility] Start: 07-30-2022 End: 07-30-2022 ambulatory DO Christin Grullon Work Phone: [facility] Work Phone: Start: 07-30-2022 End: 07-30-2022 Patient encounter procedure DO Christin Grullon Work Phone: [facility] [address] Work Phone: Start: 07-21-2022 Encounter for preprocedural laboratory examination CINDY RODRIGEZ [facility] Start: 07-21-2022 End: 07-21-2022 ambulatory CINDY RODRIGEZ Facility:[facility] Start: 07-18-2022 End: 07-19-2022 [facility] Start: 07-18-2022 End: 07-19-2022 Encounter for preprocedural laboratory examination CINDY RODRIGEZ Facility:[facility] Start: 07-16-2022 End: 07-16-2022 ambulatory Christin Grullon Other [employer] Other Start: 07-16-2022 Office outpatient vi sit 25 minutes Christin AGUILAR [facility] [place] Start: 07-14-2022 End: 07-14-2022 Admission to same day surgery center DO Christin Grullon Work Phone: [facility] Start: 07-14-2022 End: 07-14-2022 ambulatory DO Christin Porsha Grullon Work Phone: [facility] Work Phone: Start: 07-11-2022 End: 07-12-2022 ambulatory [facility] Facility:[facility] Start: 07-10-2022 End: 07-10-2022 ambulatory DO Christin Grullon Work Phone: [facility] Work Phone: Start: 07-10-2022 End: 07-10-2022 Patient encounter procedure DO Christin Grullon Work Phone: [facility] Work Phone: Start: 07-08-2022 End: 07-08-2022 Patient encounter procedure DO Christin Grullon Work Phone: [facility] Work Phone: Start: 07-08-2022 End: 07-08-2022 ambulatory Christin Grullon Other [employer] Other Start: 07-08-2022 Telephone encounter Christin Reyes [facility] [place] Start: 07-04-2022 End: 07-05-2022 ambulatory [facility] Facility:[facility] Start: 06-30-2022 End: 06-30-2022 ambulatory Christin Grullon Other [employer] Other Start: 06-30-2022 Telephone encounter Christin Reyes [facility] [place] Start: 06-25-2022 End: 06-26-2022 ambulatory [facility] Facility:[facility]1 Start: 06-24-2022 End: 06-24-2022 ambulatory Christin Grullon Other [employer] Other Start: 06-24-2022 Telephone encounter Christin Reyes [facility] [place] Start: 06-19-2022 End: 06-19-2022 Patient encounter procedure DO Christin Grullon Work Phone: [facility] Work Phone: Start: 06-03-2022 End: 06-03-2022 ambulatory Christin Grullon Other [employer] Other Start: 06-03-2022 Telephone encounter Christin Reyes [facility] [place] Start: 05-28-2022 End: 05-29-2022 ambulatory CINDY RODRIGEZ Facility:[facility]1 Start: 05-20-2022 End: 05-20-2022 ambulatory Christin Grullon Other [employer] Other Start: 05-20-2022 Telephone encounter Christin Reyes [facility] [place] Start: 05-19-2022 Office outpatient vi sit 15 minutes Christin AGUILAR [facility] Start: 05-19-2022 End: 05-19-2022 ambulatory DO Christin Grullon Work Phone: [employer] Other Start: 05-19-2022 End: 05-19-2022 Patient encounter procedure DO Christin Grullon Work Phone: [facility] Start: 04-30-2022 End: 05-01-2022 [...] Facility:[facility] Start: 02-10-2022 End: 02-11-2022 ambulatory [facility] Start: 02-04-2022 Encounter for preprocedural cardiovascular examination [facility] Start: 02-04-2022 Encounter for preprocedural laboratory examination [facility] Start: 02-03-2022 End: 02-04-2022 ambulatory [facility] Start: 02-03-2022 End: 02-04-2022 Encounter for preprocedural cardiovascular examination CINDY RODRIGEZ Facility:[facility] Start: 01-08-2022 End: 01-09-2022 ambulatory CORWIN HANLEY Facility:[facility] Start: 12-27-2021 End: 12-28-2021 ambulatory CORWIN HANLEY Facility:[facility] Start: 12-04-2021 End: 12-05-2021 ambulatory [facility] Start: 11-08-2021 End: 11-08-2021 ambulatory Christin Grullon Other [employer] Other Start: 11-08-2021 Telephone encounter Christin Reyes [facility] [place] Start: 05-01-2021 End: 05-01-2021 ambulatory Christin Grullon Other [employer] Other Start: 05-01-2021 Office outpatient vi sit [address] [facility] [place] Start: 04-18-2021 Telephone encounter Christin Reyes [facility] [place] Start: 03-20-2021 Office outpatient vi sit [address] [facility] [place] Start: 08-28-2018 End: 09-20-2018 Patient encounter procedure CHRISTINE Jones [facility] Start: 08-21-2018 End: 08-27-2018 Evaluation and management of inpatient [facility] Procedures Date Procedure Procedure Detail Performing Clinician Start: 11-23-2024 Dual energy X-ray absorptiometry Christin Grullon DO Work Phone: Start: 11-22-2024 Screening mammograph y of bilateral breasts Christin Grullon DO Work Phone: Start: 06-23-2023 Plain X-ray of left shoulder DO Christin [employer] Phone: Start: 06-10-2023 OR Shoulder Arthro RCR/Biceps Tendon (Left) DO Christin [employer] Phone: Start: 05-05-2023 Local anesthetic lum bar facet joint nerve block DO Christin [employer] Phone: Start: 04-02-2023 MRI of left shoulder DO Christin [employer] Phone: Start: 02-24-2023 Radiography of thora cic spine DO Christin [employer] Phone: Start: 09-24-2022 MRI of cervical spin e without contrast DO Christin [employer] Phone: Start: 09-24-2022 XR pre/post mri xray DO Christin [employer] Phone: Start: 07-30-2022 MRI of head DO Christin [employer] Phone: Start: 07-14-2022 Mammography of right breast DO Christin [employer] Phone: Start: 07-14-2022 Core needle biopsy o f breast using ultrasound guidance DO Christin [employer] Phone: Start: 07-08-2022 Mammography of right breast DO Christin [employer] Phone: Start: 07-08-2022 Ultrasonography of r ight breast DO [employer] Phone: Start: 06-19-2022 Dual energy X-ray absorptiometry DO [employer] Phone: Start: 06-19-2022 Screening mammograph y of bilateral breasts DO [employer] Phone: Start: 05-19-2022 Plain X-ray of left shoulder DO Christin [employer] Phone: Start: 05-19-2022 X-ray of both knees DO Christin Grullon Work Phone: Plan of Treatment Date Care Activity Detail Author Start: 06-10-[address] [facility] Start: 06-10-[address] [facility] Start: 05-05-[address] [facility] Adenosine monophosphate.cyclic [Moles/volume] in Serum or Plasma [facility] Work Phone: MG Breast - bilatera l Screening [facility] Patient Education Felter Diagnostic Block [facility] Work Phone: Patient referral [facility] Work Phone: Rheumatoid factor [Units/volume] in Serum or Plasma [facility] Work Phone: Immunizations Immunization Date Immunization Notes Care Provider Fa roel 06-26-2023 influenza, injectabl e, quadrivalent, preservative free Isiah Purcell Other [facility] 05-22-2021 COVID-19 mRNA, Comirnaty (Pfizer) DO Christin Grullon Work Phone: [facility] 03-20-2021 Kenalog -40 mg Christin Grullon Other [employer] Other 10-18-2020 COVID-19 Vaccine Pfi zer - Documentation Purposes Only Christin Grullon Other [facility] 09-27-2020 COVID-19 Vaccine Pfi zer - Documentation Purposes Only Christin Grullon Other [facility] 08-24-2018 pneumococcal polysaccharide vaccine, 23 valent Christin Grullon Other [facility] Payers Date Payer Category Payer Self-pay 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
--- NOTE | 2025-02-09 12:00 | PM.CN ---
Consult Note: HPI Data of Consult Patient: known to practice within the last 3 years Requesting Physician: Kristen Calhoun NP Primary Care Provider: CHRISTIN GRULLON Consult Narrative Reason for consult: low back pain Narrative: Karen Mark a 54 year old female presents for evaluation of chronic back pain secondary to thoracic/lumbar spondylosis, lumbar stenosis with NC. middle and low back pain unresponsive to > 6 weeks of PT/HEP, heat, ice, tylenol, NSAIDs. no recent falls/injury. utilizing percocet and pregabalin with benefit without side effects. notes recent left L4-5 L5-s1 TFESI providing less than 50% improvement in pain. continues to endorse severe middle and low back pain. Pain today 4/10 increasing to 8/10. cc:: CC: Kristen Calhoun NP [facility] Medical History Dyspnea on exertion ?R06.09 - Other forms of dyspnea (ICD-10) Respiratory arrest (2007) ?R09.2 - Respiratory arrest (ICD-10) Pneumonia (2007) ?J18.9 - Pneumonia, unspecified organism (ICD-10) Osteopenia ?M85.80 - Other specified disorders of bone density and structure, unspecified site (ICD-10) Fibromyalgia ?M79.7 - Fibromyalgia (ICD-10) Neck pain ?M54.2 - Cervicalgia (ICD-10) Arthritis ?M19.90 - Unspecified osteoarthritis, unspecified site (ICD-10) Depression ?F32.A - Depression, unspecified (ICD-10) Chronic obstructive pulmonary disease ?J44.9 - Chronic obstructive pulmonary disease, unspecified (ICD-10) Pseudarthrosis after fusion or arthrodesis ?M96.0 - Pseudarthrosis after fusion or arthrodesis (ICD-10) Surgical History History of hysterectomy ?Z90.710 - Acquired absence of both cervix and uterus (ICD-10) H/O foot surgery ?Z98.890 - Other specified postprocedural states (ICD-10) H/O foot surgery ?Z98.890 - Other specified postprocedural states (ICD-10) Family History Other Family history of diabetes mellitus Social History Within the past year, how often did you have a drink containing alcohol: never Score interpretation: A score less than 3 is consistent with normal alcohol consumption. Smoking status: Current every day smoker What tobacco products do you use: cigarettes Packs per day: 1 Years smoked: 24 Smoking pack-years: 24.00 Non-prescribed substance use: denies use Highest level of school completed/degree received: high school graduate Meds Home Medications and Allergies Home Medications ?Medication ?Instructions ?Recorded ?Confirmed ?Type escitalopram oxalate 20 mg tablet 20 mg PO DAILY 11/30/22 01/23/25 History trazodone 50 mg tablet 50 mg PO BEDTIME 11/30/22 01/23/25 History naloxone 4 mg/actuation nasal 4 mg intranasal Q3M PRN opioid 03/02/24 01/23/25 Rx spray (Narcan) overdose #2 ea pregabalin 150 mg capsule (Lyrica) 150 mg PO TID #90 caps 11/16/24 01/23/25 Rx oxycodone-acetaminophen 5 mg-325 1 tab PO BID PRN pain #60 tabs 01/12/25 01/23/25 Rx mg tablet (Percocet) Allergies Allergy/AdvReac Type Severity Reaction Status Date / Time Penicillins Allergy Severe Unknown Verified 01/23/25 09:55 Exam Constitutional Documenting provider has reviewed patient's vital signs: yes Common normals: no apparent distress, oriented x3, healthy appearing, alert and well nourished General appearance: cooperative HENAL Common normals: normocephalic, hearing grossly normal bilaterally and moist oral mucous membranes Head and scalp: normocephalic Eye Common normals: PERRL Pupil: PERRL Neck & C-Spine Common normals: full ROM General: normal visual inspection Chest Common normals: inspection of chest normal Respiratory Common normals: normal respiratory effort, no retractions and no use of accessory muscles Back & Pelvis Thoracic spine/upper back: ROM limited, pain with ROM and thoracic spinal tenderness Lumbar spine/lower back: ROM limited, pain with ROM, lumbar spinal tenderness and straight leg raise negative bilaterally Other: positive facet loading strength 5/5 in BLE Neuro Common normals: oriented x3 Sensorium/orientation: alert Psych Common normals: mental status grossly normal, thought process normal, cooperative, affect normal, speech normal and activity/motor behavior normal Speech: normal speech Thought process: normal thought process Results Additional Findings Additional findings: If on a controlled substance or opioids, I have checked an [place] report on this patient and there are no aberrancies noted in the prescribing history.??If on a controlled substance or opioid a drug screen was completed and reviewed within the last year, and if there has not been a drug screen completed we ordered one today to monitor higher risk, state monitored pain medication use. As part of providing excellent, safe, comprehensive care, the following was completed at our patient's visit: 1. A medication reconciliation and review to ensure accurate knowledge of current/active medications, including asking our patients to inform us about any whqs-tll-qbitjqp medications or herbal remedies/nutritional supplements/alternative remedies. 2. A review to specifically ensure our patients have had annual screening for screening for depression, screening for tobacco use, and screening for unhealthy alcohol use. For concerning screenings had a discussion with the patient, provided patient education, and recommended follow-up with primary care provider when appropriate. If patient noted with a risk of falling, they received education on strength, gait, and balance training to prevent future risk of falling. Portions of this note may have been carried over from the previous visit and updated as appropriate. Please note this office utilizes paper charting in addition to the electronic medical record. A list of current medications, vitals, and PMH is available there as the clinical staff outside of myself do not have access to [employer] charting during the clinic day operations. As part of providing quality comprehensive care the current medications, vitals, and PMH were reviewed in the paper chart. Assessment and Plan Assessment and Plan (1) Lumbar stenosis with neurogenic claudication: (2) Lumbar spondylosis: Assessment and Plan: The patient has had over 3 months of moderate to severe thoracic and lumbar pain with functional impairment and inadequate response to conservative care including NSAIDS (unless there are contraindication such as concurrent blood thinners), multiple oral or topical pain medications, and home exercise program/physical therapy.? Patient has completed >6 weeks of guided home exercise program and/or formal physical therapy program without relief of their symptoms.? I have reviewed the imaging of the lumbar spine and no red flags were identified.? The Oswestry Disability Index was completed, and the patient scored a 54%.? The patient noted the following:?? moderate to severe pain with ADLs, standing, walking, sitting, sleeping, social life, travel (3) Chronic prescription opiate use: Plan bilateral L4-5 L5-S1 mbb x2 in consideration of RFA for facet mediated low back pain update UDS today, last dose of perocet last night per pt refill/continue percocet 5-325mg BID PRN moderate to severe pain. notes moderate pain relief without side effects. has failed non-opioid medications including, tylenol, motrin, tramadol, gabapentin continue lyrica 150mg TID f/u after each MBB
== END 2025-02-09 11:36 | disposition home or self-care (01) ==
LOC: PM 11:35
PROVIDERS: PCP Family Medicine; Visit Provider Nurse Practitioner
DX: M48.062 Spinal stenosis, lumbar region with neurogenic claudication (principal); M47.816 Spondylosis without myelopathy or radiculopathy, lumbar region; Z79.891 Long term (current) use of opiate analgesic
CPT/HCPCS: G0463

== ENCOUNTER 2025-03-06 12:55 | Outpatient (RCR) | payer OTHER, SELFPAY | END 2025-04-18 12:32 | disposition home or self-care (01) | LOC: PT 12:55 | PROVIDERS: PCP Family Medicine; Visit Provider Nurse Practitioner | DX: M47.816 Spondylosis without myelopathy or radiculopathy, lumbar region (principal) | CPT/HCPCS: 97110; 97113; 97162 ==

== ENCOUNTER 2025-05-09 18:21 | Emergency (ER) | payer OTHER, SELFPAY ==
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
[2025-05-09 18:27] VITALS: BP 111/65; PULSE 72; TEMP 36.6; O2SAT 99; BMI 24.2
--- NOTE | 2025-05-09 18:51 | XR_ITS ---
The [address] [address] Patient Name: JOSH SOLIS MRN: [id number] date: 1970 Sex: F Assigned Patient Location: ER Current Patient Location: ER Accession/Order Number: [id number] Exam Date: 05/09/2025 19:00 Report Date: 05/09/2025 19:19 At the request of: DONALD LINDSEY Procedure: XR knee RT 3V 3 views right knee HISTORY: Right knee pain. Fell 2 weeks ago. Adequate bony alignment without acute displaced fracture or joint effusion. XR/XR knee RT 3V IMPRESSION: No acute displaced fracture Impression dictated by: Umesh Perez M.D. 05/09/2025 7:19 PM Dictation Location: [place] [address] Electronically authenticated by: [id number] Y Date: 05/09/2025 19:19
[2025-05-09] MEDS: KETOROLAC TROMETHAMINE 30 MG/ML VIAL IM (19:00)
--- NOTE | 2025-05-09 19:26 | ED.GENADUL1 ---
HPI HPI - General Adult General Chief complaint: Extremity Injury, Lower Stated complaint: PAIN IN R KNEE Time Seen by Provider: 05/09/25 18:39 Source: patient Mode of arrival: Wheelchair Limitations: no limitations History of Present Illness HPI narrative: Patient is a 55-year-old female that presents with complaints of 2 weeks of right knee pain after she was playing with her grandchild and her right leg slipped on a book, possibly causing it to twist. She has had persistent posterior lateral pain and swelling since this time causing her to walk with a limp. She does Percocet chronically for her left foot pain after [address] Clark. Her Percocet is managed here in [place] at the pain management clinic. Related Data Home Medications ?Medication ?Instructions ?Recorded ?Confirmed escitalopram oxalate 20 mg tablet 20 mg PO DAILY 11/30/22 05/09/25 trazodone 50 mg tablet 50 mg PO BEDTIME 11/30/22 05/09/25 Previous Rx's ?Medication ?Instructions ?Recorded pregabalin 150 mg capsule (Lyrica) 150 mg PO TID #90 caps 11/16/24 oxycodone-acetaminophen 5 mg-325 1 tab PO BID PRN pain #60 tabs 02/09/ mg tablet (Percocet) oxycodone-acetaminophen 5 mg-325 1 tab PO BID PRN pain #60 tabs 03/13/25 mg tablet (Percocet) pregabalin 150 mg capsule (Lyrica) 150 mg PO TID #90 caps 03/13/25 oxycodone-acetaminophen 5 mg-325 1 tab PO BID PRN pain #60 tabs 04/13/25 mg tablet (Percocet) pregabalin 150 mg capsule (Lyrica) 150 mg PO TID #90 caps 04/13/25 Allergies Allergy/AdvReac Type Severity Reaction Status Date / Time Penicillins Allergy Severe Unknown Verified 05/09/25 18:27 Opioid HPI Opioid Management Most Recent Opioid Data: Last Pain Scale 8 05/09/25, 19:00 Last MAR Pain Assessment 05/09/25, 19:00 Prescription drug monitoring program results: PDMP reviewed and no issues identified Review of Systems ROS Status of ROS 10 or more systems reviewed and unremarkable except as noted in history and below [facility] Medical History Dyspnea on exertion ?R06.09 - Other forms of dyspnea (ICD-10) Respiratory arrest (2008) ?R09.2 - Respiratory arrest (ICD-10) Pneumonia (2008) ?J18.9 - Pneumonia, unspecified organism (ICD-10) Osteopenia ?M85.80 - Other specified disorders of bone density and structure, unspecified site (ICD-10) Fibromyalgia ?M79.7 - Fibromyalgia (ICD-10) Neck pain ?M54.2 - Cervicalgia (ICD-10) Arthritis ?M19.90 - Unspecified osteoarthritis, unspecified site (ICD-10) Depression ?F32.A - Depression, unspecified (ICD-10) Chronic obstructive pulmonary disease ?J44.9 - Chronic obstructive pulmonary disease, unspecified (ICD-10) Pseudarthrosis after fusion or arthrodesis ?M96.0 - Pseudarthrosis after fusion or arthrodesis (ICD-10) Surgical History History of hysterectomy ?Z90.710 - Acquired absence of both cervix and uterus (ICD-10) H/O foot surgery ?Z98.890 - Other specified postprocedural states (ICD-10) H/O foot surgery ?Z98.890 - Other specified postprocedural states (ICD-10) Family History Other Family history of diabetes mellitus Social History Within the past year, how often did you have a drink containing alcohol: never Score interpretation: A score less than 3 is consistent with normal alcohol consumption. Smoking status: Current every day smoker What tobacco products do you use: cigarettes Packs per day: 1 Years smoked: 24 Smoking pack-years: 24.00 Non-prescribed substance use: denies use Highest level of school completed/degree received: high school graduate Little interest or pleasure in doing things: not at all Feeling down, depressed, or hopeless: not at all Exam Narrative Exam Narrative: General: No distress but appears uncomfortable, leaning on cart onto left leg, age-appropriate Skin: Warm, dry, no pallor. No rash. Head: Normocephalic, atraumatic. Neck: Supple, non-tender. Eye: Pupils are equal, round and EOMI. No scleral icterus. Ears, Nose, Mouth, and Throat: No nasal mucosal hypertrophy. Oral mucosa is moist, no posterior oropharynx erythema, uvula is mid-line Cardiovascular: Regular Rate and Rhythm without murmur, gallop or rub. Respiratory: No accessory muscle use or respiratory distress. Musculoskeletal: Full ROM of all extremities, except right knee. No calf or popliteal tenderness, no erythema, no palpable cords. Knee ROM reduced, patient hesitant to move leg. Varus/valgus stress negative for instability or pain. Joslyn and posterior drawer tests negative for instability, but patient guarding. Tenderness with palpation of the posterior lateral joint line and hamstring tendon. Mild joint effusion. Neurological: A&O x4. No cranial nerve dysfunction observed. No truncal ataxia. Moves all extremities. Sensation intact. Psychiatric: Cooperative and interactive. Normal mood and affect. Constitutional Vital Signs, click to edit/add: Last Vital Signs Temp 98 F 05/09/25 18:27 Pulse 72 05/09/25 18:27 Resp 16 05/09/25 18:27 BP 111/65 05/09/25 18:27 Pulse Ox 99 05/09/25 18:27 O2 Del Method Room Air 05/09/25 18:27 Documenting provider has reviewed patient's vital signs: yes Course Vital Signs Vital signs: Vital Signs Temperature 98 F 05/09/25 18:27 Pulse Rate 72 05/09/25 18:27 Respiratory Rate 16 05/09/25 18:27 Blood Pressure 111/65 05/09/25 18:27 Pulse Oximetry 99 05/09/25 18:27 Oxygen Delivery Method Room Air 05/09/25 18:27 Temperature 98 F 05/09/25 18:27 Pulse Rate 72 05/09/25 18:27 Respiratory Rate 16 05/09/25 18:27 Blood Pressure 111/65 05/09/25 18:27 Pulse Oximetry 99 05/09/25 18:27 Oxygen Delivery Method Room Air 05/09/25 18:27 Medical Decision Making MDM Narrative Medical decision making narrative: 55-year-old female with 2 weeks of right knee pain after she likely had a twisting event when she was playing with her grandchild and her foot slipped on a book. X-ray right knee ordered. 30 mg IM Toradol ordered. X-ray negative for fracture, no dislocation, no joint effusion. I discussed results with patient and her presentation and exam is more consistent with a cartilage injury. She already has pain medication at home. I discussed limiting her weightbearing if she is having pain with ambulation can help with pain and a supportive brace. She agreed with plan and I did order crutches and a knee immobilizer to use mostly with sleep as she tosses a lot and this causes her to wake up in pain. We did discuss doing range of motion exercises so she does not get stiff and have further pain. I did give her follow-up and discharge instructions with Dr. Cross with Ortho. Patient's pain controlled, vital stable, and she was discharged with plan for follow-up with orthopedics. Differential Diagnosis Differential Diagnosis: Leg fracture, meniscus tear Imaging Data XRay Right Knee: Attestation: I have reviewed the pertinent imaging results. Radiologist's impression: ITS Impressions Knee X-Ray 05/09/25 18:51 IMPRESSION: No acute displaced fracture Impression dictated by: Umesh Perez M.D. 05/09/2025 7:19 PM Dictation Location: [place] [address] Electronically authenticated by: [id number] Y Date: 05/09/2025 19:19 Discharge Plan Discharge Chief Complaint: Extremity Injury, Lower Clinical Impression: Acute knee pain Patient Disposition: Home, Self-Care Time of Disposition Decision: 19:39 Condition: Good Mode of Transportation: Private Vehicle Prescriptions / Home Meds: No Action escitalopram oxalate 20 mg tablet 20 mg PO DAILY trazodone 50 mg tablet 50 mg PO BEDTIME pregabalin [Lyrica] 150 mg capsule 150 mg PO TID Qty: 90 0RF oxycodone-acetaminophen [Percocet] 5-325 mg tablet 1 tab PO BID PRN (Reason: pain) Qty: 60 0RF Rx Instructions: MUST LAST 30 DAYS pregabalin [Lyrica] 150 mg capsule 150 mg PO TID Qty: 90 0RF Rx Instructions: DO NOT FILL TILL 04/14/25 MUST LAST 30 DAYS oxycodone-acetaminophen [Percocet] 5-325 mg tablet 1 tab PO BID PRN (Reason: pain) Qty: 60 0RF oxycodone-acetaminophen [Percocet] 5-325 mg tablet 1 tab PO BID PRN (Reason: pain) Qty: 60 0RF pregabalin [Lyrica] 150 mg capsule 150 mg PO TID Qty: 90 0RF Print Language: Nepalese Instructions: Knee Pain (ED) Referrals: Pratik Cross DO [Physician, Orthopedics] - 1 week CHRISTIN GRULLON [Primary Care Provider, Unknown] - 1 week Discharge Date/Time: 05/09/25 20:11
--- OUTSIDE RECORDS SUMMARY | 2025-05-09 19:46 | XMS_ITS | CCD ---
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 11/22/24 Procedure(s): MM screening mammo BI w/CAD Accession Number(s): ([id number]) MM/MM screening mammo BI w/CAD: Z12.31 - [...] Royal M.D. 11/22/2024 3:40 PM Dictation Location: [facility] Dictated By: Rian Royal II, MD 11/22/24 1534 Signed By: 11/22/[address] [place] [address] Physician GroupMammography reportOrdered By: Rian Royal on 74-92-0598Kektithsxg imaging studySELECT MEDICAL [facility] [address] [place] [address] Mammography Report Signed Patient: Karen Solis MR#: [id number] : 1970 Acct:[id number] Age/Sex: 54 / F Adm Date: 5 Loc: [place] Room: Type: REG CLI Attending Dr: Christin Grullon DO Ordering Provider: Christin Grullon DO Date of Service: 11/22/24 Procedure(s): MM screening mammo BI w/CAD Accession Number(s): ([id number]) MM/MM screening mammo BI w/CAD: Z12.31 - Encounter for screeningmammogram for malignant ... Copies to: Christin Grullon [...] 3 (approximately 51-75% glandular) The breasts are heterogeneouslydense, which may obscure small masses. FOLLOW UP: 1YR The false-negative rate of mammography is approximately 10-percent. Management of a palpable abnormality must be based on clinical grounds. Patient was entered into a reminder system with a target due date for the next mammogram. Impression dictated by: Rian Royal M.D. 11/22/2024 3:40 PM Dictation Location: [facility] Dictated By: Rian Royal II, MD 11/22/24 1534 Signed By: 11/22/24 1540 [facility] Work Phone: XR shoulder LT min 2V*on 08-88-5797HQ shoulder LT min 2V*[facility] Setup Other xr shoulder LT min 2V*[facility] Setup Other xr shoulder LT min 2V*1111 [facility] Setup Other XR shoulder LT min 2V*QUITA Scales [address] Other XR shoulder LT min 2V*XRay ReportSodus Point [facility] Other XR shoulder LT min 2V*SignedSodus [place] [facility] Other XR shoulder LT min 2V*Patient: Karen Solis MR#: [id number] [facility] Other XR shoulder LT min 2V*[place] [facility] Other XR shoulder LT min 2V*: 1970 Acct:[id number] [place] [facility] Other XR shoulder LT min 2V*Age/Sex: 53 / F ADM Date: 06/23/23[place] [facility] Other XR shoulder LT min 2V*Loc: [facility] Room: Type: [facility] Other XR shoulder LT min 2V*Attending Dr: Isiah Purcell DO [facility] Other XR shoulder LT min 2V*Copies to: Isiah Purcell [facility] Other XR shoulder LT min 2V*Ordering Provider: Isiah Purcell, [facility] [employer] Other XR shoulder LT min 2V*Date of Service: 06/23/23[place] [facility] Other XR shoulder LT min 2V* XR/XR shoulder LT min 2V*: Status post arthroscopy of left shoulderSodus Point [facility] Other XR shoulder LT min 2V*3 views LEFT shoulder plain film [facility] Other XR shoulder LT min 2V*HISTORY: Status post LEFT shoulder surgerySodus Point [facility] Other XR shoulder LT min 2V*COMPARISON: [facility] Other XR shoulder LT min 2V*ACUTE FINDINGS: NoneSodus Point [facility] Other XR shoulder LT min 2V*DEGENERATIVE CHANGE: UnremarkableSodus Point [facility] Other XR shoulder LT min 2V*SOFT TISSUE FINDINGS: UnremarkableSodus Point [facility] Other XR shoulder LT min 2V*JOINT EFFUSION: [facility] [employer] Other XR shoulder LT min 2V*POSTOP CHANGES: Resection changes of the acromion/clavicle present. No complication.[facility] Other XR shoulder LT min 2V*BONY MINERALIZATION: Adequate [facility] Other XR shoulder LT min 2V* XR/XR shoulder LT min 2V*[facility] Other XR shoulder LT min 2V*IMPRESSION: Unremarkable postsurgical change.[facility] Other XR shoulder LT min 2V*Impression dictated by: Umesh Perez M.D.06/23/2023 3:46 PMNsaint louis university [facility] science center [facility] Other XR shoulder LT min 2V*Dictation Location: [place] [address] [facility] Other XR shoulder LT min 2V*Transcribed By: [facility] 06/23/[address] [place] [address] [employer] Other XR shoulder LT min 2V*Dictated By: Umesh Perez DO 06/23/23 [facility] Other XR shoulder LT min 2V*Signed By:[facility] Other XR shoulder LT min 2V*06/23/23 [facility] GroupZ[employer] Other Alanine aminotransferase [Enzymatic activity/volume] in Serum or PlasmaOrdered By: Isiah Purcell on 39-50-9544UIZ [Catalytic activity/Vol]6 U/L7-52Veterans Health AdministrationAlbumin [Mass/volume] in Serum or Plasma by Bromocresol green (BCG) dye binding methoOrdered By: Isiah Purcell on 04-18-5006Wixncug BCG dye [Mass/Vol]4.2 g/dL3.5-5.7FMorrow County HospitalAlkaline phosphatase [Enzymatic activity/volume] in Serum or PlasmaOrdered By: Isiah Purcell on 47-42-0297LWA [Catalytic activity/Vol]123 U/L 34-104Veterans Health AdministrationAspartate aminotransferase [Enzymatic activity/volume] in Serum or PlasmaOrdered By: Isiah Purcell on 92-52-2279RKB [Catalytic activity/Vol]10 U/J68-83JqpneotwxVeterans Health AdministrationBasophils Auto (Bld) [#/Vol]Ordered By: Isiah Purcell on 90-93-3989Wqdajubvk (Bld) [#/Vol] 0.1 10*3/uL0.0-0.2FMorrow County HospitalBasophils/100 WBC Auto (Bld) Ordered By: Isiah Purcell on 42-43-9220Gumpkuqnn/100 WBC (Bld)1.4 %.Veter[facility] Health AdministrationBilirubin.total [Mass/volume] in Serum or PlasmaOrdered By: Isiah Purcell on 57-11-4873Kvshagkcr [Mass/Vol]0.3 mg/dL0.3-1.0V[facility] Health AdministrationCalcium [Mass/volume] in Serum or PlasmaOrdered By: Isiah Purcell 21-38-6760Vvqznay [Mass/Vol]9.6 mg/dL8.6-10.3FMorrow County HospitalCarbon dioxide, total [Moles/volume] in Serum or PlasmaOrdered By: Isiah Purcell on 35-79-2141TH8 [Moles/Vol]29.0 mmol/L21.0-31.0V[facility] Health AdministrationChloride [Moles/volume] in Serum or PlasmaOrdered By: Isiah Purcell on 93-89-9530Kiryvrbg [Moles/Vol]105 mmol/R09-260OepxeugwxVeterans Health AdministrationCreatinine [Mass/volume] in Serum or PlasmaOrdered By: Isiah Purcell on 29-84-6111Gfubitnoag [Mass/Vol]0.84 mg/dL0.60-1.20V[facility] Health AdministrationEosinophils Auto (Bld) [#/Vol]Ordered By: Isiah Purcell on 79-94-0507Pxlgwcjprnc (Bld) [#/Vol]0.1 10*3/uL0.0-0.45V[facility] Health AdministrationEosinophils/100 WBC Auto (Bld)Ordered By: Isiah Purcell on 06-01-2023 Eosinophils/100 WBC (Bld)1.8 %.V[facility] Health AdministrationErythrocyte distribution width Auto (RBC) [Ratio]Ordered By: Isiah Purcell on 06-01-2023 Erythrocyte distribution width (RBC) [Ratio]13.4 %11.9-15.3FMorrow County HospitalGlobulin Calc (S) [Mass/Vol]Ordered By: Isiah Purcell on 06-01-2023 Globulin (S) [Mass/Vol]2.4 g/dLVeterans Health AdministrationGlucose [Mass/volume] in Serum or PlasmaOrdered By: Isiah Purcell on 19-24-7849Nxmpxac [Mass/Vol]77 mg/wQ70-426LkuxawljvVeterans Health AdministrationHematocrit Auto (Bld) [Volume fraction]Ordered By: Isiah Purcell on 18-23-6283Myfvrvabyt (Bld) [Volume fraction]40.1 %34.0-46.4FMorrow County HospitalHemoglobin [Mass/volume] in BloodOrdered By: Isiah Purcell on 54-95-6265Izdogntpep (Bld) [Mass/Vol]13.7 g/dL11.8-15.4FMorrow County HospitalLeukocytes [#/volume] corrected for nucleated erythrocytes in Blood by Automated coun Ordered By: Isiah Purcell on 53-14-8034GTB corrected for nucl RBC Auto (Bld) [#/Vol]7.3 10*3/uL3.8-11.6FMorrow County HospitalLymphocytes Auto (Bld) [#/Vol]Ordered By: Isiah Purcell on 79-92-6768Axjfkiyeibh (Bld) [#/Vol]1.5 10*3/uL1.00-4.8Veterans Health AdministrationLymphocytes/100 WBC Auto (Bld) Ordered By: Isiah Purcell on 46-42-0204Nqupmowzzzb/100 WBC (Bld)20.3 %.[facility]ittman Medical CenterH Auto (RBC) [Entitic mass]Ordered By: Isiah Purcell on 08-27-6423PBX (RBC) [Entitic mass]30.3 pg24.7-34.3FMorrow County HospitalMCHC Auto (RBC) [Mass/Vol]Ordered By: Isiah Purcell on 21-28-1019ZNYV (RBC) [Mass/Vol]34.1 g/dL32.0-35.0V[facility] Health AdministrationMCV Auto (RBC) [Entitic vol]Ordered By: Isiah Purcell on 10-34-3581ZSV (RBC) [Entitic vol]88.8 yX69-766JtdoqpfbpVeterans Health AdministrationMonocytes Auto (Bld) [#/Vol]Ordered By: Isiah Purcell on 46-43-2057Eovvvvnao (Bld) [#/Vol]0.6 10*3/uL0.0-0.8V[facility] Health AdministrationMonocytes/100 WBC Auto (Bld)Ordered By: Isiah Purcell on 12-46-8582Eaybwusqn/100 WBC (Bld)8.7 %.[facility] Neutrophils Auto (Bld) [#/Vol]Ordered By: Isiah Purcell on 79-93-6019Knwohnxjamr (Bld) [#/Vol]5.0 10*3/uL1.8-7.7FMorrow County HospitalNeutrophils/100 WBC Auto (Bld)Ordered By: Isiah Purcell on 85-28-8983Cmopdtrzuzj/100 WBC (Bld) 67.8 %.[facility] Health AdministrationNo Panel InformationOrdered By: Isiah Purcell on 23-90-7654Prdjarwkf GFR (CKD-EPI)> 60.0 mL/MinVeterans Health AdministrationPharmacy Creatinine Clearance (ChemN/AFMorrow County HospitalNucleated erythrocytes [Presence] in Blood by Automated countOrdered By: Isiah Purcell on 86-36-1899Ropifwwbs RBC Auto Ql (Bld)0.0 /100{WBC}0-0.5FMorrow County HospitalPlatelet mean volume Auto (Bld) [Entitic vol]Ordered By: Isiah Purcell on 18-95-2115Wjcvlmee mean volume (Bld) [Entitic vol]8.2 fL6.3-10.7 [facility] Health AdministrationPlatelets Auto (Bld) [#/Vol]Ordered By: Isiah Purcell on 11-41-6779Xwqbdeepu (Bld) [#/Vol]377 10*3/gQ989-728XztasfvojVeterans Health AdministrationPotassium [Moles/volume] in Serum or PlasmaOrdered By: Isiah Purcell on 83-87-2442Muavdcmjd [Moles/Vol]4.2 mmol/L3.5-5.1FMorrow County HospitalProtein [Mass/volume] in Serum or PlasmaOrdered By: Isiah Purcell on 64-27-4003Uthhhxx [Mass/Vol]6.6 g/dL6.4-8.9[facility] RBC Auto (Bld) [#/Vol]Ordered By: Isiah Purcell on 70-12-1483XPV (Bld) [#/Vol] 4.52 10*6/uL3.60-5.00Wadsworth-Rittman Hospitalerum or plasma albumin/globulin mass ratioOrdered By: Isiah Purcell on 06-01-2023 Albumin/Globulin [Mass ratio]1.8 {ratio}Wadsworth-Rittman Hospitalerum or plasma anion gap determinationOrdered By: Isiah Purcell on 30-12-8767Vvzcn gap [Moles/Vol]10.2 mmol/L6.0-15.0Wadsworth-Rittman Hospitalodium [Moles/volume] in Serum or PlasmaOrdered By: Isiah Purcell on 76-80-9285Hgdzoe [Moles/Vol]140 mmol/B618-983TtkoxooylVeterans Health AdministrationUrea nitrogen [Mass/volume] in Serum or PlasmaOrdered By: Isiah Purcell on 01-55-4051Nzxy nitrogen [Mass/Vol]7 mg/dL7-25Veterans Health AdministrationWBC Auto (Bld) [#/Vol]Ordered By: Isiah Purcell on 09-64-0039UQJ (Bld) [#/Vol]7.3 10*3/uL 3.8-11.6FMorrow County HospitalMR head/brain wo conon 45-65-6572FG head/brain wo [facility] Setup Other MR head/brain wo conFRMC Middletown [facility] Setup Other MR head/brain wo [id number] [facility] Setup Other MR head/[place] [address]RnbvfWest [facility] Community [facility] Setup Other MR head/brain wo conMRI [facility] Setup Other MR head/brain wo [facility] Setup Other MR head/brain wo conPatient: Karen Solis MR#: [id number] [place] Setup Other MR head/brain wo yjw78PbpcyWest Seattle Community Hospital Setup Other MR head/brain wo conDOB: 1970 Acct:[id number] [facility] Setup Other MR head/brain wo conAge/Sex: 52 / F ADM Date: 07/30/22 [facility] Setup Other MR head/brain wo conLoc: [facility] Room: Type: [facility] Setup Other MR head/brain wo conAttending Dr: Christin Grullon DO [facility] Setup Other MR head/brain wo conCopies to: Christin Grullon, DO [facility] Setup Other MR head/brain wo conOrdering Provider: Christin Grullon, [facility] Setup Other MR head/brain wo conDate of Service: 07/30/22[place] [facility] Other MR head/brain wo conAccession #: ([id number]) MR/MR head/brain wo con: Generalized headaches;Intention tremor;Pain [facility] Other MR head/brain wo conunspecified [facility] [employer] Other MR head/brain wo conEXAMINATION: MRI OF THE BRAIN WITHOUT CONTRASTSodus Point [facility] Other MR head/brain wo conCLINICAL HISTORY: Headache and intention tremor for the past few months, mostly on the left.[facility] Other MR head/brain wo conCOMPARISON: CT 2021Noaudrain [facility] Other MR head/brain wo conTECHNIQUE: Multiecho, multiplanar imaging of the brain was performed without enhancement.[place] [facility] Other MR head/brain wo conThe ventricles are normal in size and position. A small nonspecific focus of increased T2 and FLAIRSodus Point [facility] Other MR head/brain wo consignal is present within the subcortical white matter of the right parietal lobe (axial image 15).[place] [facility] Other MR head/brain wo conThere is also very subtle increased signal within the suzie. This is nonspecific and could beNsaint louis university health science center [facility] Other MR head/brain wo conminimal microvascular disease. Demyelination is thought less likely given the distribution. ANort [facility] Other MR head/brain wo conprominent perivascular space is noted at the inferior basal ganglia region on the left. There areNsaint louis university health science center [facility] Other MR head/brain wo conno additional areas of abnormal signal intensity within the supra- or infratentorial brain. [facility] Other MR head/brain wo conrestricted diffusion is identified to suggest a recent ischemic event. There are no extra-axialNort [employer] Other MR head/brain wo concollections or mass effect. The imaged paranasal sinuses and mastoid air cells are clear.[facility] Other mr head/brain wo conORDER #: [id number] MR/MR head/brain wo [facility] [employer] Other mr head/brain wo conIMPRESSION:[facility] Other mr head/brain wo conMINIMAL NONSPECIFIC WHITE MATTER CHANGE, DESCRIBED.[facility] Other mr head/brain wo conNO ACUTE INTRACRANIAL FINDINGS [place] [facility] Other mr head/brain wo conImpression dictated by: Perla Mcnally M.D.07/30/2022 4:55 [facility] [employer] Other mr head/brain wo conDictation Location: RADIO-PC-10 [facility] Other mr head/brain wo conTranscribed By: PWS 07/30/22 165 [facility] Other mr head/brain wo conDictated By: Perla Mcnally MD 07/30/[address] [place] [address] [employer] Other mr head/brain wo conSigned By:[facility] Other mr head/brain wo con07/30/[address] [place] [address] [employer] Other pOINT OF CARE GLUCOSEon 26-11-1141Harksli [Mass/Vol]94 mg/oWNffoby42-935VvwAkron Children'S HospitalComment on above:Performed By: #### POCGLUC #### [facility] [address] [place], [place] [address] Dr. Alex GuyGlucose [Mass/Vol]92 mg/yBJelhvj95-871ElxAkron Children'S Hospital Comment on above:Performed By: #### POCGLUC ####[facility] [address] [place], [place] [address]NsDr. Alex GuyXR FOOT LT 2Von 93-66-2697VM FOOT LT 2VFluoroscopic guidance was provided by the department of [...] Electronically authenticated by: ROXANNA NIELSEN Date: 2022-07-21 09:40NormUniversity Hospitals Parma Medical CenterCovid-19 PCR (CVDTBH)on 99-86-0965TFEM-CoV-2 (COVID-19) RNA CATALINA+probe Ql (Unsp spec)Not detectedNormalNOT DETECTEDAkron Children'S Hospital Comment on above:Result Comment: This test is not yet approved or cleared by the [place] FDA. When there are no FDA-approved or cleared tests available, and other criteria are met, FDA can make tests available under an emergency access mechanism called an Emergency Use Authorization (EUA). The EUA for this test is supported by the Verifying Specialist of Health and Human Service's (HHS's) declaration that circumstances exist to justify the emergency use of in vitro diagnostics for the detection and/or diagnosis of the virus that causes COVID- 19. This EUA will remain in effect (meaning [...] of clinical signs and symptoms consistent with SARS-CoV-2.Performed By: #### CVDTBH #### [facility] [address] [place], [place] [address] Dr. Alex GuyPROPankaj CHEM 8 (BAS METB)on 75-49-6927Fiwuv gap [Moles/Vol]9.3 mmol/LNormalAkron Children'S HospitalComment on above:Performed By: #### BMP ####[facility] [address] [place], [place] [address]KqDr. Alex GuyCalcium [Mass/Vol]9.5 mg/dLNormal8.5-10.1The [facility] Medical CenterComment on above:Performed By: #### BMP ####[facility] I[address] [place], [place] [address]Dr.Yilan ChangChloride [Moles/Vol]104 mmol/LNormal 98-107The [facility] Medical CenterComment on above:Performed By: #### BMP ####[facility] [address] [place], [place] [address]Dr.Yilan ChangCO2 [Moles/Vol]32.4 mmol/LCritically high21.0-32.0The [facility] Medical CenterComment on above:Performed By: #### BMP ####[facility] Ob[address] [place], [place] [address]Dr.Yilan ChangCreatinine [Mass/Vol]0.82 mg/dLNormal 0.55-1.02The [facility] Medical CenterComment on above:Performed By: #### BMP ####[facility] [address] [place], [place] [address]Dr. Yilan ChangEGFR-AF BURMESE>60Normal>=60The [facility] Medical CenterComment on above: Performed By: #### BMP ####[facility] [address] [place], [place] [address]Dr.Yilan ChangEGFR-NON AF BURMESE>60Normal>=60The [facility] Medical CenterComment on above:Performed By: #### BMP ####[facility] C[address] [place], [place] [address]Dr.Yilan ChangGlucose [Mass/Vol]89 mg/eITpuzhh66-113Fnm [facility] CenterComment on above:Performed By: #### BMP ####[facility] Afnelbyolc[address] [place], [place] [address]Dr.Yilan ChangPotassium [Moles/Vol]4.7 mmol/LNormal3.5-5.1The [facility] Medical CenterComment on above:Performed By: #### BMP ####[facility] [address] [place], [place] [address]Dr.Yilan ChangSodium [Moles/Vol]141 mmol/MXqvuag744-307Tsk [facility] CenterComment on above: Performed By: #### BMP ####[facility] [address] [place], [place] [address]Rc.Alex ChangUrea nitrogen [Mass/Vol]7.0 mg/dLNormal 7.0-18.0Akron Children'S HospitalComment on above:Performed By: #### BMP ####[facility] [address] [place], [place] [address]Dx. Yilan ChangUrea nitrogen/Creatinine [Mass ratio]8.5 mg/mgNormUniversity Hospitals Parma Medical CenterComment on above:Performed By: #### BMP ####[facility] [address] [place], [place] [address]Ld.Yilarry ChangCT FOOT LT WO CONon 93-68-1967WO FOOT LT WO CONEXAMINATION: CT FOOT LT WO CON HISTORY: Idiopathic [...] Electronically authenticated by: STERLING THOMAS Date: 2022-07-08 07:21[facility] CenterUS breast RT limitedon 11-75-2641TO breast RT [facility] Setup Other us breast RT limitedVirginia Gay Hospital Setup Other US breast RT fktjnzx[address] [place] [address] Setup Other [place] breast [place], [place] [address]AvysaWest [facility] Community Hospital Setup Other US breast RT limitedMammography ReportWest Seattle Community Hospital Setup Other US breast RT limitedSignedSodus [place] [facility] Other US breast RT limitedPatient: Karen Solis MR#: [id number] [employer] Other US breast RT esvxwen54Unet[place] Setup Other US breast RT limitedDOB: 1970 Acct:[id number] [facility] Setup Other us breast RT limitedAge/Sex: 52 / F ADM Date: 07/08/22 [place] [facility] Other US breast RT limitedLoc: [place] Room: Type: [facility] Setup Other US breast RT limitedAttending Dr: Christin Grullon DO [facility] Other US breast RT limitedCopies to: Christin Grullon, DO [place] [facility] Other us breast RT limitedOrdering Provider: Christin Grullon [facility] Setup Other US breast RT limitedDate of Service: 07/08/22[place] [facility] Other us breast RT limitedAccession #: ([id number]) MM/MM diagnostic mammo RT w/CAD: Abnormal mammogram of right breastSodus Point [facility] Other US breast RT limited([id number]) US/US breast RT limited: Abnormal mammogram of right breastSodus Point [facility] Other US breast RT limitedCLINICAL DATA: Follow-up right breast asymmetry.[facility] Other US breast RT limitedRIGHT DIAGNOSTIC MAMMOGRAMS - FULL FIELD DIGITAL WITH TOMOSYNTHESIS AND CADNoaudrain medical center [facility] Other US breast RT limitedTomosynthesis spot compression true lateral, craniocaudal and mediolateral oblique views of [facility] [employer] Other US breast RT limitedright breast were obtained using low-dose digital technique. Comparison is made to the prior studySodus Point [facility] Other US breast RT limitedfrom June 19, 2022. This examination was reviewed with the aid of CAD.[facility] Other US breast RT limitedThere are scattered fibroglandular densities. There is still subtle, ill-defined asymmetry at [facility] Other US breast RT limitedcentral, slightly inferior breast on today's views. There are no other suspicious masses, typicallySodus Point [facility] Other US breast RT limitedmalignant calcifications or architectural distortion.[facility] Other US breast RT limitedLIMITED RIGHT BREAST ULTRASOUND [facility] Setup Other US breast RT limitedthe 4 to 5:00 position in the retroareolar region, there is a subtle hypoechoic area which hasSodus Point [facility] Other US breast RT limitedslightly irregular margination. It measures approximately 3 x 3 x 4 mm in size. This might correlateSodus Point [facility] Other US breast RT limitedwith the mammographic asymmetry. At the 6 to 7:00 position, 4 cm from the nipple there is a possibleSodus Point [facility] Other US breast RT limitedsubtle 3 x 2 x 4 mm hypoechoic nodular area within a band of tissue extending from middle depthSodus Point [facility] Other US breast RT limitedtoward the chest wall. There are multiple adjacent vessels. If real, this is probably incidental.[facility] Other US breast RT limitedORDER #: [id number] MM/MM diagnostic mammo RT w/CADSodus Point [facility] Other US breast RT limitedIMPRESSION:[facility] Other US breast RT limitedPERSISTENT SUBTLE ASYMMETRY WITH TINY INDETERMINANT HYPODENSITY ON ULTRASOUND. FINDINGS WERESodus Point [facility]Cs[facility] Other US breast RT limitedDISCUSSED WITH THE PATIENT WHO WOULD PREFER ULTRASOUND-GUIDED BIOPSY OVER OBSERVATION.[facility] Other NA breast RT limitedSECOND POTENTIAL INCIDENTAL TINY HYPODENSITY AT THE LOWER OUTER QUADRANT. ULTRASOUND FOLLOW-UP IN [facility] [employer] Other AB breast RT limitedMONTHS IS SUGGESTED.[facility] Other CS breast RT limitedRESULT CODE: 4aNoaudrain medical center [facility] Other US breast RT limitedSuspicious Abnormality - Biopsy Low SuspicionSodus Point [facility] Other CX breast RT limitedDENSITY CODE: 2 (approximately 25- 50% glandular)[facility] Other FT breast RT limitedFOLLOW UP: BIOSodus Point [facility] Other us breast RT limitedThe false-negative rate of mammography is approximately 10-percent.[facility] Other SW breast RT limitedManagement of a palpable abnormality must be based on clinical grounds.[facility] Other [place] breast RT limitedPatient was entered into a reminder system with a target due date for the next mammogram.[facility] Other US breast RT limitedImpression dictated by: Perla Mcnally M.D.07/08/2022 4:04 [facility] [employer] Other NC breast RT limitedDictation Location: [address] [employer] Other US breast RT limitedTranscribed By: ANJEL 07/08/22 1604 [facility] Other [place] breast RT limitedDictated By: Perla Mcnally MD 07/08/22 1442Noaudrain medical center [facility] Other us breast RT limitedSigned By:[place] [place] [employer] Other us breast RT mpsraiw69/17/23 1604[facility] Other albumin [Mass/volume] in Serum or PlasmaOrdered By: Christin Grullon on 52-99-9644Eoyhihj [Mass/Vol]4.6 g/dL3.2-5.5FMorrow County HospitalC reactive protein [Mass/volume] in Serum or PlasmaOrdered By: Christin Grullon on 57-50-6835LRC [Mass/Vol]0.5 mg/dL0.0-1.0[facility] Health AdministrationCreatinine and Glomerular filtration rate.predicted panel (S/P/Bld)Ordered By: Christin Grullon on 33-82-7315Igknzymquu [Mass/Vol]0.85 mg/dL 0.44-1.03V[facility] Health AdministrationErythrocyte distribution width Auto (RBC) [Ratio]Ordered By: Christin Grullon on 37-83-9244Zihzygwtegj distribution width (RBC) [Ratio]13.6 %11.9-15.3FMorrow County HospitalErythrocyte sedimentation rate by Photometric methodOrdered By: Christin Grullon on 05-19-2022 ESR Photometric method (Bld) [Velocity]24 mm/hr0-29Veter[facility] Health AdministrationEstimated glomerular filtration rate (GFR) non- AmericanOrdered By: Christin Grullon on 84-58-0471CEW/1.73 sq M.predicted among non-blacks MDRD (S/P/Bld) [Vol rate/Area]> 60 mL/MinVeterans Health AdministrationGlobulin Calc (S) [Mass/Vol]Ordered By: Christin Grullon on 37-61-6098Sbzfitys (S) [Mass/Vol]2.5 g/dLVeterans Health AdministrationHematocrit Auto (Bld) [Volume fraction]Ordered By: Christin Grullon on 91-99-2583Xeuptsepet (Bld) [Volume fraction]42.6 %34.0-46.4FMorrow County HospitalHemoglobin [Mass/volume] in BloodOrdered By: Christin Grullon on 95-17-1746Brsrtdggpm (Bld) [Mass/Vol]14.1 g/dL11.8-15.4FShelby Memorial HospitalH Auto (RBC) [Entitic mass]Ordered By: Christin Grullon on 70-49-9814GBY (RBC) [Entitic mass] 29.5 pg24.7-34.3FMorrow County HospitalMCHC Auto (RBC) [Mass/Vol] Ordered By: Christin Grullon on 99-52-4644RBLP (RBC) [Mass/Vol]33.0 g/dL32.0-35.0 [facility] Health AdministrationMCV Auto (RBC) [Entitic vol]Ordered By: Christin Grullon on 57-92-1355LQV (RBC) [Entitic vol]89.3 oK04-058IxcayylyfVeterans Health AdministrationNo Panel InformationOrdered By: Christin Grullon on 05-19-2022 Estimated GFR ()> 60 mL/MinVeterans Health Administration Comment on above:GFR estimated reference range: According to KDOQI guidelines, <60 ml/min/1.73m2 is sufficient todiagnose a patient with chronic kidney disease.Pharmacy Creatinine Clearance (ChemN/[facility] Platelet mean volume Auto (Bld) [Entitic vol]Ordered By: Christin Grullon on 69-57-1328Bluiyemb mean volume (Bld) [Entitic vol]8.5 fL6.3-10.7FMorrow County HospitalPlatelets Auto (Bld) [#/Vol]Ordered By: Christin Grullon on 01-81-7555Qmlcdxeoo (Bld) [#/Vol]388 10*3/bF696-061PgfzxfpmcVeterans Health AdministrationProtein [Mass/volume] in Serum or PlasmaOrdered By: Christin Grullon on 75-41-9134Kkqiqri [Mass/Vol]7.1 g/dL6.1-7.9V[facility] Health AdministrationRBC Auto (Bld) [#/Vol]Ordered By: Christin Grullon on 09-10-1463LDW (Bld) [#/Vol]4.77 10*6/uL3.60-5.00Wadsworth-Rittman Hospitalerum or plasma alanine aminotransferase measurement without P-5'-P (enzymatic activiOrdered By: Christin Grullon on 56-47-5721FFH No additional P-5'-P [Catalytic activity/Vol]9 U/L10-60 [facility]-Rittman Hospitalerum or plasma albumin/globulin mass ratio Ordered By: Christin Grullon on 63-98-7757Mtzvbld/Globulin [Mass ratio]1.8 {ratio} [facility]-Rittman Hospitalerum or plasma alkaline phosphatase measurement (enzymatic activity/volume)Ordered By: Christin Grullon on 05-19-2022 ALP [Catalytic activity/Vol]98 U/W73-83RkarmufroWadsworth-Rittman Hospitalerum or plasma anion gap determinationOrdered By: Christin Grullon on 40-47-3274Attyk gap [Moles/Vol]13.8 mmol/L6.0-15.0Wadsworth-Rittman Hospitalerum or plasma aspartate aminotransferase measurement (enzymatic activity/volume)Ordered By: Christin Grullon on 83-26-0954MSQ [Catalytic activity/Vol]16 U/Q51-83NhppvcyryWadsworth-Rittman Hospitalerum or plasma calcium measurement (mass/volume)Ordered By: Christin Grullon on 49-06-9711Siqgrux [Mass/Vol]9.9 mg/dL8.2-10.2FSelect Medical Cleveland Clinic Rehabilitation Hospital, Edwin Shawerum or plasma chloride measurement (moles/volume) Ordered By: Christin Grullon on 01-66-3162Qvijdhyi [Moles/Vol]101 mmol/L95-114 [facility]-Rittman Hospitalerum or plasma cyclic adenosine monophosphate measurement (moles/volume)Ordered By: Christin Grullon on 58-19-7726Lismzluto monophosphate.cyclic [Moles/Vol]4 units0-19[facility] Comment on above:Negative <20 Weak positive 20 - 39 Moderate positive 40 - 59 Strong positive >59Performed at: - Lab[address] [id number] Director: Lena Evans MD, Phone: [phone] or plasma glucose measurement (mass/volume)Ordered By: Christin Grullon on 83-97-2441Nxsrucr [Mass/Vol]81 mg/vH17-273ItbarnlgxVeterans Health Administration Comment on above:ADA recommended reference rangeRandom Glucose Reference Range is dependent on time and content of last meal. Glucose of more than 200 mg/dL in a nonstressed, ambulatory subject supports the diagnosisof Diabetes Mellitus. Serum or plasma potassium measurement (moles/volume)Ordered By: Christin Grullon on 95-59-0731Jxxsgavlw [Moles/Vol]4.6 mmol/L3.5-5.1FSelect Medical Cleveland Clinic Rehabilitation Hospital, Edwin Shawerum or plasma rheumatoid factor measurement (units/volume)Ordered By: Christin Grullon on 46-64-0113Tmwhdoftkd factor Qn[IU]/mL<14.0V[facility] Health AdministrationComment on above:Performed at: - [place] [id number] Director: Primitivo Raygoza PhD, Phone: [phone] Serum or plasma sodium measurement (moles/volume)Ordered By: Christin Grullon on 23-71-3713Dxpqhm [Moles/Vol]138 mmol/X881-216LpcciyvtbVeterans Health Administration Serum or plasma total bilirubin measurement (mass/volume)Ordered By: Christin Grullon on 29-71-9207Sbewjddro [Mass/Vol]0.4 mg/dL0.3-1.2FSelect Medical Cleveland Clinic Rehabilitation Hospital, Edwin Shawerum or plasma total carbon dioxide measurement (moles/volume) Ordered By: Christin Grullon on 83-40-4258OR6 [Moles/Vol]27.8 mmol/L22.0-30.0 [facility]-Rittman Hospitalerum or plasma urea nitrogen measurement (mass/volume)Ordered By: Christin Grullon on 10-17-7746Fazl nitrogen [Mass/Vol]8 mg/dL9-23V[facility] Health AdministrationWBC Auto (Bld) [#/Vol]Ordered By: Christin Grullon on 44-01-0830YYU (Bld) [#/Vol]7.1 10*3/uL3.8-11.6FMorrow County HospitalXR knee standing BIon 97-75-5481EH knee standing BI [facility] Setup Other XR knee standing BIFRMTriHealth Setup Other XR knee standing [id number]North ARCsys Other XR [place] [address]Ivvqh [employer] Other XR knee standing BIXRay ReportSodus Point ARCsys Other XR knee standing BISignedSodus [place] [facility]Cs[facility] Other XR knee standing BIPatient: Karen Solis MR#: [id number] [employer] Other XR knee standing [id number] [employer] Other XR knee standing BIDOB: 1970 Acct:[id number] [place] [employer] Other XR knee standing BIAge/Sex: 52 / F ADM Date: 05/19/22 [place] [employer] Other XR knee standing BILoc: XDSHC Room: Type: [facility] Other XR knee standing BIAttending Dr: Christin Grullon DO [place] [employer] Other XR knee standing BICopies to: Christin Grullon, [facility] [employer]Cs[employer] Other XR knee standing BIOrdering Provider: Christin Grlulon, [employer] Other XR knee standing BIDate of Service: 05/19/22[place] [employer] Other XR knee standing BIAccession #: ([id number]) XR/XR shoulder LT min 2V*: Pain in joint, multiple sites;Pain in leftSodus Point ARCsys Other XR knee standing BIshoulderSodus Point [facility]Cs[facility] Other XR knee standing BI([id number]) XR/XR knee standing BI: Pain in joint, multiple sites;Pain in right knee;Pain in lefSodus Point ARCsys Other XR knee standing BILEFT SHOULDER - - 3 views bilateral knee series, one view eachSodus Point [facility]Cs[facility] Other xr knee standing BICLINICAL HISTORY: Frozen left shoulder for 4 months. Bilateral knee pain left greater than rightSodus Point [facility]Cs[facility] Other xr knee standing BIwith standing.[employer] Other xr knee standing BICOMPARISON: Knee series 01/15/2021 [employer] Other XR knee standing BIFINDINGS:[employer] Other xr knee standing BILeft shoulder: No acute bony process or significant degenerative change.[employer] Other xr knee standing BIKnee series: No acute bony process or significant degenerative change.[employer] Other xr knee standing BIORDER #: [id number] XR/XR shoulder LT min 2V*[employer] Other xr knee standing BIIMPRESSION:[employer] Other xr knee standing KAMRAN ACUTE BONY PROCESS OR SIGNIFICANT DEGENERATIVE CHANGE INVOLVING THE KNEES OR LEFT SHOULDER.[employer] Other xr knee standing BIImpression dictated by: Jeff Hannah Jr., D.O.05/19/2022 3:54 PMNsaint louis university [facility]Cs[facility] Other xr knee standing BIDictation Location: [place] [address] [employer] Other xr knee standing BITranscribed By: PWS 05/19/22 [facility] [employer] Other xr knee standing BIDictated By: Jeff Hannah Jr, DO 05/19/[address] [place], [place] [address]TRELYS Other xr knee standing BISigned By:[employer] Other xr knee standing BI05/19/[address] [place], [place] [address]TRELYS Other pOINT OF CARE GLUCOSEon 13-93-5975Lggupkm [Mass/Vol] 126 mg/dLCritically meug38-913XsoAkron Children'S HospitalComment on above:Performed By: #### POCGLUC #### [facility] [address] [place] [address] Alex GuyCovid-19 PCR ([facility])on 75-29-0470HLFE-CoV-2 (COVID-19) RNA CATALINA+probe Ql (Unsp spec)Not detectedNormalNOT DETECTEDThe [facility] Comment on above:Result Comment: This test is not yet approved or cleared by the [place] FDA. When there are no FDA-approved or cleared tests available, and other criteria are met, FDA can make tests available under an emergency access mechanism called an Emergency Use Authorization (EUA). The EUA for this test is supported by the Verifying Specialist of Health and Human Service's (HHS's) declaration that circumstances exist to justify the emergency use of in vitro diagnostics for the detection and/or diagnosis of the virus that causes COVID- 19. This EUA will remain in effect (meaning [...] of clinical signs and symptoms consistent with SARS-CoV-2.Performed By: #### CVDTBH #### [facility] [address] [place] [address] Alex GuyXR CHEST 2 Von 70-11-4005ZL CHEST 2 VEXAMINATION: XR CHEST 2 V HISTORY: Chronic obstructive [...] process. 2. Pectus excavatum. Electronically authenticated by: HNUG ARREDONDO Date: 2022-02-04 07:41[facility] Medical CenterPROF CHEM 8 (BAS METB)on 52-32-6902Ampdb gap [Moles/Vol]10.7 mmol/LNormalThe [facility] Medical CenterComment on above:Performed By: #### BMP ####[facility] M[address]wr[address] [place], [place] [address]Dr. Yilan ChangCalcium [Mass/Vol]9.3 mg/dLNormal8.5-10.1The [facility] Medical CenterComment on above:Performed By: #### BMP ####[facility] Koltdjegpm[address] [place], [place] [address]Dr.Yilan ChangChloride [Moles/Vol]101 mmol/LNormal 98-107The [facility] CenterComment on above:Performed By: #### BMP ####[facility] Orahasleor[address] [place], [place] [address]Dr.Yilan ChangCO2 [Moles/Vol]30.3 mmol/HHkwanw05.0-32.0The [facility] Medical CenterComment on above: Performed By: #### BMP ####[facility] Rfoznmtnjd[address] [place], [place] [address]Dr.Yilan ChangCreatinine [Mass/Vol]0.91 mg/dLNormal 0.55-1.02The [facility] Medical CenterCompaul oliver memorial hospital on above:Performed By: #### BMP ####[facility] Ikindjxsqf[address] [place], [place] [address]Dr. Yilan ChangEGFR-AF BURMESE>60Normal>=60The [facility] Medical CenterComment on above: Performed By: #### BMP ####[facility] Szabzyh[address] [place], [place] [address]Dr.Yilan ChangEGFR-NON AF BURMESE>60Normal>=60The [facility] Medical CenterCompaul oliver memorial hospital on above:Performed By: #### BMP ####[facility] Ykoamcwm[address] [place], [place] [address]Dr.Yilan ChangGlucose [Mass/Vol]84 mg/bBQcldvz46-997Hmw [facility] CenterComment on above:Performed By: #### BMP ####[facility] [address]bul[address]ml[address] [place], [place] [address]Jl.Yilan ChangPotassium [Moles/Vol]5.0 mmol/LNormal3.5-5.1The [facility] Medical CenterComment on above:Performed By: #### BMP ####[facility] [address] [place], [place] [address]Cq.Yilan ChangSodium [Moles/Vol]137 mmol/ZTimaya004-371Dlr [facility] CenterComment on above: Performed By: #### BMP ####[facility] [address] [place], [place] [address]Lo.Yilan ChangUrea nitrogen [Mass/Vol]8.0 mg/dLNormal 7.0-18.0The [facility] CenterComment on above:Performed By: #### BMP ####[facility] L[address] [place], [place] [address]By. Yilan ChangUrea nitrogen/Creatinine [Mass ratio]8.8 mg/mgNoOhioHealth Hardin Memorial HospitalComment on above:Performed By: #### BMP ####[facility] Q[address]riwjigt[address] [place], [place] [address]Rl.Yilan ChangCT FOOT LT WO CONon 80-81-5120IS FOOT LT WO CONEXAMINATION: CT FOOT LT WO CON HISTORY: Idiopathic [...] Electronically authenticated by: HUNG ARREDONDO Date: 2021-12-27 18:04NoOhioHealth Hardin Memorial HospitalPROGRESSon 33-26-9284Qxuabxb mass concHNO ID: [id number] Author: Lian Aparicio Service: ? Author Type: Physician Type: Progress Notes Filed: 10/19/2018 9:59 PM Note Text: [facility] - General Progress Note KAREN SOLIS : 1970 AGE: 48 SEX: F CSN: [id number] [place] [facility] [place] [facility] LOCATION: [facility] ATTENDING PHYSICIAN: Bill Patten M.D. DATE OF [...] Psych Unit. Lian Aparicio M.D. Internal Medicine JOYNER:[id number] /[id number] HospitalRPRon 89-71-0517Poddvf Ab RPR Ql (S)NonreactiveNormalNonreactiveMemorial Health System Selby General HospitalComment on above: Performed By: #### UA, PT, CBCDIF, GBCHEM, GBTSH, MG, RPR #### [facility] [address] [place] [address] FQKFSKkd 76-89-7758Hcw Baso0.06 k/uLNormal0-0.2AKaiser South San Francisco Medical CenterComment on above:Performed By: #### UA, PT, CBCDIF, GBCHEM, GBTSH, MG, RPR #### [facility] [address] [place] [address] Tux Mono1.08 k/uLHigh0-0.8AKaiser South San Francisco Medical CenterComment on above: Performed By: #### UA, PT, CBCDIF, GBCHEM, GBTSH, MG, RPR #### [facility] [address] [place] [address] Fbj Neut4.76 k/uLNormal1.8-7.7AKaiser South San Francisco Medical CenterComment on above:Performed By: #### UA, PT, CBCDIF, GBCHEM, GBTSH, MG, RPR #### [facility] [address] [place] [address] Dvprtfrfl/100 WBC (Bld)0.8 %Normal0-1AKaiser South San Francisco Medical CenterComment on above:Performed By: #### UA, PT, CBCDIF, GBCHEM, GBTSH, MG, RPR #### [facility] [address] [place] [address] Afwqnxzroly #/vol (Bld)0.25 10*3/uLNormal0-0.4AKaiser South San Francisco Medical CenterComment on above:Performed By: #### UA, PT, CBCDIF, GBCHEM, GBTSH, MG, RPR #### [facility] Lab [address] [place] [address] Lodwqryomwu/100 WBC (Bld)3.3 %Normal0-4AKaiser [facility] Center Comment on above:Performed By: #### UA, PT, CBCDIF, GBCHEM, GBTSH, MG, RPR #### [facility] [address] [place] [address] Oatsbolq Gran0.30 %Normal0-1.9AKaiser South San Francisco Medical CenterComment on above:Performed By: #### UA, PT, CBCDIF, GBCHEM, GBTSH, MG, RPR #### [facility] Lab [address] [place] [address] Iwjmbklooli #/vol (Bld)1.50 10*3/uLNormal1.0-4.0Mem[facility] Selby General HospitalComment on above:Performed By: #### UA, PT, CBCDIF, GBCHEM, GBTSH, MG, RPR #### [facility] [address] [place] [address] Jbhsrwwugrr/100 WBC (Bld)19.6 %Nxf71-15PubesczqxMemorial Health System Selby General Hospital Comment on above:Performed By: #### UA, PT, CBCDIF, GBCHEM, GBTSH, MG, RPR #### [facility] [address] [place] [address] Acyoqfyqd/100 WBC (Bld)14.1 %High4-12[facility] Sel[facility] General HospitalComment on above:Performed By: #### UA, PT, CBCDIF, GBCHEM, GBTSH, MG, RPR #### [facility] [address] [place] [address] Xkbxacoedrd/100 WBC (Bld)61.9 %Okhxas67-44ZrktpouazMemorial Health System Selby General Hospital Comment on above:Performed By: #### UA, PT, CBCDIF, GBCHEM, GBTSH, MG, RPR #### [facility] [address] [place] [address] Uufeupbqzin distribution width Ratio (RBC)13.7 %Cewuob63.5-14.5 [facility] Sel[facility] General HospitalComment on above:Performed By: #### UA, PT, CBCDIF, GBCHEM, GBTSH, MG, RPR #### [facility] [address] [place] [address] Lrvxpoynrv Volume Fraction (Bld)45.9 %Njxxbv26.0-46.0[facility] Sel[facility] General HospitalComment on above:Performed By: #### UA, PT, CBCDIF, GBCHEM, GBTSH, MG, RPR #### [facility] [address] [place] [address] Aivktgrgnu mass conc (Bld)15.0 g/tCQhsssr11.0-16.0[facility] Sel[facility] General HospitalComment on above:Performed By: #### UA, PT, CBCDIF, GBCHEM, GBTSH, MG, RPR #### [facility] Lab [address] [place] [address] OCL Entitic mass (RBC)31.5 tXNnfsvm30-79JmsswvqaoKaiser [facility] Center Comment on above:Performed By: #### UA, PT, CBCDIF, GBCHEM, GBTSH, MG, RPR #### [facility] Lab [address]HC mass conc (RBC)32.7 g/wPZxrwwa71-67CdambieoiMemorial Health System Selby General Hospital Comment on above:Performed By: #### UA, PT, CBCDIF, GBCHEM, GBTSH, MG, RPR #### [facility] Lab [address] [place]AN[place] [phone] Entitic volume (RBC)96.4 sFJelrpo34-600CwumssfnaMemorial Health System Selby General Hospital Comment on above:Performed By: #### UA, PT, CBCDIF, GBCHEM, GBTSH, MG, RPR #### [facility] Lab [address] [place] [address] FYIHt2 /100 WBCNormal0-0.9AKaiser South San Francisco Medical CenterComment on above: Performed By: #### UA, PT, CBCDIF, GBCHEM, GBTSH, MG, RPR #### [facility] Lab [address] [place] [address] Jjryjayan #/vol (Bld)248 10*3/bPZciyni611-309Uwvvehlzr Medical CenterComment on above:Performed By: #### UA, PT, CBCDIF, GBCHEM, GBTSH, MG, RPR #### [facility] Lab [address] [facility] [place] [id number] AFX #/vol (Bld)4.76 10*6/uLNormal4.00-5.20[facility] Comment on above:Performed By: #### UA, PT, CBCDIF, GBCHEM, GBTSH, MG, RPR #### [facility] [address] [place] [address] ULQ #/vol (Bld)7.67 10*3/uLNormal4.5-11.0[facility] Comment on above:Performed By: #### UA, PT, CBCDIF, GBCHEM, GBTSH, MG, RPR #### [facility] Lab [address] [place] [address] Benjeriyq Chem Profon 53-59-1390Onyvzgk mass conc3.9 g/dLNormal 3.5-5.0[facility] General HospitalComment on above:Performed By: #### UA, PT, CBCDIF, GBCHEM, GBTSH, MG, RPR #### [facility] Lab [address] [place] [address] Cwmfizrm Zetx884 U/WXdaehh87-152WbtsqumswMemorial Health System Selby General HospitalComment on above:Performed By: #### UA, PT, CBCDIF, GBCHEM, GBTSH, MG, RPR #### [facility] Lab [address] [place] [address] JOD enzyme act/vol42 U/LNormal9-52[facility] General HospitalComment on above:Performed By: #### UA, PT, CBCDIF, GBCHEM, GBTSH, MG, RPR #### [facility] [address] [place] [address] Blhqsup enzyme act/vol44 U/YBftugc59-184OiwrnulweMemorial Health System Selby General Hospital Comment on above:Performed By: #### UA, PT, CBCDIF, GBCHEM, GBTSH, MG, RPR #### [facility] [address] [place] [address] Ajkdr gap molar conc12 mmol/LNormal0-15[facility] Comment on above:Performed By: #### UA, PT, CBCDIF, GBCHEM, GBTSH, MG, RPR #### [facility] [address] [place] [address] BVM enzyme act/vol60 U/FCzzh78-49RvlqburftMemorial Health System Selby General HospitalComment on above:Performed By: #### UA, PT, CBCDIF, GBCHEM, GBTSH, MG, RPR #### [facility] [address] [place] [address] Tmgdtjatt Ql (U)0.5 mg/dLNormal0.2-1.3AKaiser [facility] Comment on above:Performed By: #### UA, PT, CBCDIF, GBCHEM, GBTSH, MG, RPR #### [facility] [address] [place] [address] Wyqfzsn mass conc9.4 mg/dLNormal8.4-10.2AKaiser [facility] Comment on above:Performed By: #### UA, PT, CBCDIF, GBCHEM, GBTSH, MG, RPR #### [facility] [address] [place] [address] Trhaxeal molar cyna802 mmol/ARuhhns94-265BtmyhccypMemorial Health System Selby General Hospital Comment on above:Performed By: #### UA, PT, CBCDIF, GBCHEM, GBTSH, MG, RPR #### [facility] [address] [place] [address] Nzghdxglfas mass pdjm389 mg/cIHileyo630-301[facility] Comment on above:Performed By: #### UA, PT, CBCDIF, GBCHEM, GBTSH, MG, RPR #### [facility] [address] [place] [address] DH2 molar conc28 mmol/OBxwlkf84-61JssnljkzvMemorial Health System Selby General HospitalComment on above:Performed By: #### UA, PT, CBCDIF, GBCHEM, GBTSH, MG, RPR #### [facility] [address] [place] [address] Htkygkxzhu mass conc0.87 mg/dLNormal0.52-1.04[facility] General HospitalComment on above:Performed By: #### UA, PT, CBCDIF, GBCHEM, GBTSH, MG, RPR #### [facility] [address] [place] [address] vUYE Amer>60Normal>60[facility] Sel[facility] General HospitalComment on above:Result Comment: MDRD calculation used for eGFR results.Performed By: #### UA, PT, CBCDIF, GBCHEM, GBTSH, MG, RPR #### [facility] [address] [place] [address] gIQO non Am>60Normal>60[facility] General HospitalComment on above:Performed By: #### UA, PT, CBCDIF, GBCHEM, GBTSH, MG, RPR #### [facility] Lab [address] [place] [address] Wycle glutamyl transferase enzyme act/vol79 U/LTgaz10-76SphnmlexfMemorial Health System Selby General HospitalComment on above:Performed By: #### UA, PT, CBCDIF, GBCHEM, GBTSH, MG, RPR #### [facility] [address] [place] [address] Twwmchd mass conc75 mg/qJRabvbo18-937AoqpjfdmpMemorial Health System Selby General HospitalComment on above:Performed By: #### UA, PT, CBCDIF, GBCHEM, GBTSH, MG, RPR #### [facility] [address] [place] [address] NWK626 U/NMmwwao128-465Upqmpxvam Medical CenterComment on above: Performed By: #### UA, PT, CBCDIF, GBCHEM, GBTSH, MG, RPR #### [facility] [address] [place] [address] Sxtlvjmar mass conc4.7 mg/dLHigh2.5-4.5AKaiser [facility] Comment on above:Performed By: #### UA, PT, CBCDIF, GBCHEM, GBTSH, MG, RPR #### [facility] Lab [address] [place] [address] Tjwkctgxf molar conc4.2 mmol/LNormal3.5-5.1AKaiser [facility] Comment on above:Performed By: #### UA, PT, CBCDIF, GBCHEM, GBTSH, MG, RPR #### [facility] [address] [place] [address] Eigpaic mass conc6.9 g/dLNormal6.2-8.2AKaiser [facility] Comment on above:Performed By: #### UA, PT, CBCDIF, GBCHEM, GBTSH, MG, RPR #### [facility] Lab [address] [place] [address] Bximri molar udwf429 mmol/NFjbjit549-543LjeywurqtMemorial Health System [facility]by [facility] Comment on above:Performed By: #### UA, PT, CBCDIF, GBCHEM, GBTSH, MG, RPR #### [facility] Clinical Lab [address] [place] [address] Pkdujowjwomc mass cyfm299 mg/nYRylklh39-607UkncojnweMemorial Health System Selby [facility] Hospital Comment on above:Performed By: #### UA, PT, CBCDIF, GBCHEM, GBTSH, MG, RPR #### [facility] Clinical Lab [address] [place] [address] Idgyf mass conc2.5 mg/dLNormal2.5-6.2AKaiser South San Francisco Medical CenterComment on above:Performed By: #### UA, PT, CBCDIF, GBCHEM, GBTSH, MG, RPR #### [facility] [address] [place] [address] Nbbv nitrogen mass conc9 mg/dLNormal7-17AKaiser [facility] Comment on above:Performed By: #### UA, PT, CBCDIF, GBCHEM, GBTSH, MG, RPR #### [facility] Lab [address] [place] [address] Xjqyfyzol TSHon 12-84-9227Dtgbzioeelg Qn6.750 uU/mLHigh0.465-4.680 [facility] HospitalComment on above:Performed By: #### UA, PT, CBCDIF, GBCHEM, GBTSH, MG, RPR #### [facility] [address] [place] [address] Kpnhczegvtm 12-58-6918Inbokyufh mass conc2.4 mg/dLHigh1.3-2.3 [facility] HospitalComment on above:Performed By: #### UA, PT, CBCDIF, GBCHEM, GBTSH, MG, RPR #### [facility] [address] [place], [place] [address] [phone] 69-68-9007Lciqiukwxvj time (PT) Coag time (PPP)0.9 sNormal 0.6-1.1AKaiser South San Francisco Medical CenterComment on above:Result Comment: The PT/INR can be used to [...] to use a lower or higher therapeutic rangeeg. 1.5 to 1.9 for secondary prevention of idiopathic venous thromboembolism and an INR 2.5 to 3.5 for older generation mechanical heart valves. Anthony, et al. Chest 2004: 126:204S to 233S.Performed By: #### UA, PT, CBCDIF, GBCHEM, GBTSH, MG, RPR #### [facility] [address] [place], [place] [address] [phone] time (PT) Coag time (PPP)12.2 bTlzkgw60.8-14.1AKaiser South San Francisco Medical CenterComment on above:Performed By: #### UA, PT, CBCDIF, GBCHEM, GBTSH, MG, RPR #### [facility] [address] [place] [address] Q7 Totalon 90-82-9432A3 Total1.0 ng/mLNormal0.970-1.69[facility] HospitalComment on above:Performed By: #### T3TOT, T3U, T4 #### [facility] [address] [place] [address] K0 Uptakeon 36-21-9165R6 Btvaqu45.7 %Rfkzvp82.5-40.5AKaiser South San Francisco Medical CenterComment on above:Performed By: #### T3TOT, T3U, T4 #### [facility] Lab [address] [place] [address] X3hn 22-55-7931R22.4 ug/dLLow5.5-11.0[facility] HospitalComment on above:Performed By: #### T3TOT, T3U, T4 #### [facility] Lab [address] [place], [place] [address] [phone] 03-55-2053Dcmszzlfq mass concNegativeNormalNegative [facility] HospitalComment on above:Performed By: #### UA, PT, CBCDIF, GBCHEM, GBTSH, MG, RPR #### [facility] [address] [place], [place] [address] [phone] Nom (U)ClearNormalClearMemorial Health System Selby General HospitalComment on above:Performed By: #### UA, PT, CBCDIF, GBCHEM, GBTSH, MG, RPR #### [facility] [address] [place], [place] [address] [phone] Nom (U)StrawCritically abnormalYelECU Health Bertie Hospital Comment on above:Performed By: #### UA, PT, CBCDIF, GBCHEM, GBTSH, MG, RPR #### [facility] Lab [address] [place], [place] [address] [phone] ANALYSIS NOT DONE ON URINES WITH NEGATIVE BIOCHEMICAL TESTSBeacon Behavioral HospitalComment on above:Performed By: #### UA, PT, CBCDIF, GBCHEM, GBTSH, MG, RPR #### [facility] [address] [place] [address] Qhvhhid mass concNegativeSanta Rosa Memorial Hospital Comment on above:Performed By: #### UA, PT, CBCDIF, GBCHEM, GBTSH, MG, RPR #### [facility] Lab [address] [place] [address] Omdptmcuzy/BloodNegativeSanta Rosa Memorial Hospital Comment on above:Performed By: #### UA, PT, CBCDIF, GBCHEM, GBTSH, MG, RPR #### [facility] Clinical Lab [address] [place] [address] GpcaoeFvimeekvGiztozNvzqplvuQrjbcfqln Medical CenterComment on above:Performed By: #### UA, PT, CBCDIF, GBCHEM, GBTSH, MG, RPR #### [facility] Clinical Lab [address] [place] [address] ZeojicyAiutrvcrNgcrywXnxqqnniBrcqtffjh Medical CenterComment on above:Performed By: #### UA, PT, CBCDIF, GBCHEM, GBTSH, MG, RPR #### [facility] Lab [address] [place] [address] Otaryce Ql (U)NegativeNoNovant Health Charlotte Orthopaedic HospitalComment on above:Performed By: #### UA, PT, CBCDIF, GBCHEM, GBTSH, MG, RPR #### [facility] Clinical Lab [address] [place] [address] kR (U)7.0 [pH]Normal5-7AKaiser South San Francisco Medical CenterComment on above: Performed By: #### UA, PT, CBCDIF, GBCHEM, GBTSH, MG, RPR #### [facility] [address] [place] [address] Hdmemts mass conc (U)NegativeNormalNegativeMemorial Health System [facility] Comment on above:Performed By: #### UA, PT, CBCDIF, GBCHEM, GBTSH, MG, RPR #### [facility] Clinical Lab [address] [place] [address] Zmsxq Spec Gravity1.649Ikd9.005-1.030[facility] HospitalComment on above:Performed By: #### UA, PT, CBCDIF, GBCHEM, GBTSH, MG, RPR #### [facility] Clinical Lab [address] [place] [address] [phone] Qn (U)<2.5Esvpwf6.0-1.0[facility] HospitalComment on above:Performed By: #### UA, PT, CBCDIF, GBCHEM, GBTSH, MG, RPR #### [facility] Clinical Lab [address] [place] [address] PWMZCG [facility] 74-43-3210TROTGE HEALTHHNO ID: [id number] Author: Yazmin (Therapist) Adriano Service: Music Therapy [...] more open to the activities. SIGNATURE: Yazmin [place], [place]- PATIENT NAME: Karen Solis DATE: August 27, 2018 TIME: 3:49 [facility] ID: [id number] Author: Gifty De Luna (Lsw) Service: Art [...] She is relieved to be going [facility]. She feels if she would've went home family stress and idle time would leave her to relapse. SIGNATURE: Gifty De Luna, SURVEILLANCE MANAGER,ATR, SALES DEVELOPMENT ASSOCIATE PATIENT NAME: Karen Solis DATE: August 27, 2018 TIME: 1:47 [facility] 64-36-5987Upgsixb mass concHNO ID: [id number] Author: Lian Aparicio Service: ? Author Type: Physician Type: Progress Notes Filed: 10/20/2018 9:46 PM Note Text: [facility] General Progress Note KAREN SOLIS : 1970 AGE: 48 SEX: F CSN: [id number] [facility]: YR LOCATION: [facility] ATTENDING PHYSICIAN: Bill Patten M.D. DATE OF [...] Smoking cessation. Lian Aparicio M.D. Internal Medicine JOYNER:[id number] /[id number] Specialty Hospital [id number] HEALTHHNO ID: [id number] Author: Lashell (Therapist) Britton Service: Art Therapy [...] images of animals and a cabin in [place]. Pt stated that she enjoyed the presence of animals and that she has always wanted to travel to [place]. SIGNATURE: Lashell Jarquin [facility] ATR PATIENT NAME: Karen Solis DATE: August 26, 2018 TIME: 3:51 [facility] ID: [id number] Author: RASHMI Alanis Service: Recreational Therapy Author [...] Solis DATE: August 26, 2018 TIME: 2:49 [facility] ID: [id number] Author: Yazmin (Therapist) Adriano Service: Music Therapy [...] she wrote with the group. SIGNATURE: Yazmin [place], [place]- PATIENT NAME: Karen Solis DATE: August 26, 2018 TIME: 1:53 [facility] ID: [id number] Author: Gifty Kaplan) Calixto Service: Art Therapy Author Type: Art Therapist Type: [facility] Filed: 08/26/2018 11:17 AM [...] anxious and optimistic about discharge today to [facility] for residential She values her family, dogs, health, God and happiness. She feels her family thinks she values her sobriety and strength currently. She continues to want to work on earning her families trust and respect back . SIGNATURE: Gifty De Luna, SURVEILLANCE MANAGER,ATR, SALES DEVELOPMENT ASSOCIATE PATIENT NAME: Karen Solis DATE: August 26, 2018 TIME: 11:08 AMNormalLutheran HospitalCBC and Differentialon 51-51-6203Wky Baso 0.04 k/uLNormal<0.11Lutriverview health institute HospitalComment on above:Performed By: #### UHCG, UAWMIC, UTOX2 #### [place] [address] Vyr Mono1.07 k/uLHigh<0.87Lutriverview health institute HospitalComment on above: Performed By: #### UHCG, UAWMIC, UTOX2 #### [place] [address] Irx Neut6.92 k/uLNormal1.45-7.50Lutriverview health institute HospitalComment on above: Performed By: #### UHCG, UAWMIC, UTOX2 #### [place] [address] Lvqxnfhvy/100 WBC (Bld)0.4 %NormalMormonism HospitalComment on above: Performed By: #### UHCG, UAWMIC, UTOX2 #### [place] [address] Fmlitzzxtfj #/vol (Bld)0.19 10*3/uLNormal<0.46[facility] Hospital Comment on above:Performed By: #### UHCG, UAWMIC, UTOX2 #### [place] [address] Rjvqtnmdojh/100 WBC (Bld)2.1 %NormalMormonism HospitalComment on above:Performed By: #### UHCG, UAWMIC, UTOX2 #### [place] [address] Xtwesyaerso distribution width Ratio (RBC)14.0 %Fveszg77.5-15.0 Mormon[facility] HospitalComment on above:Performed By: #### UHCG, UAWMIC, UTOX2 #### [place] [address] Xzreoiehcu Volume Fraction (Bld)41.3 %Ooiuvw78.0-46.0[facility] Medical CenterComment on above:Performed By: #### UHCG, UAWMIC, UTOX2 #### [place] [address] Tejllwjotr mass conc (Bld)13.9 g/qTFrwuvu78.5-15.5[facility] Comment on above:Performed By: #### UHCG, UAWMIC, UTOX2 #### [place] [address] Kguzwfjroxx #/vol (Bld)0.86 10*3/uLLow1.00-4.00[facility] Comment on above:Performed By: #### UHCG, UAWMIC, UTOX2 #### [place] [address] Kjpybllkoaz/100 WBC (Bld)9.5 %NormalOhio State University Wexner Medical CenterComment on above:Performed By: #### UHCG, UAWMIC, UTOX2 #### [place] [address] PNH Entitic mass (RBC)32.3 oVFdkwxe27.0-34.0[facility] Medical CenterComment on above:Performed By: #### UHCG, UAWMIC, UTOX2 #### [place] [address] LEHE mass conc (RBC)33.7 g/dTEejoxt07.5-36.0Mormonism HospitalComment on above:Performed By: #### UHCG, UAWMIC, UTOX2 #### [place] [address] CDZ Entitic volume (RBC)95.8 oCNmyxwr12.0-100.0[facility] Comment on above:Performed By: #### UHCG, UAWMIC, UTOX2 #### [place] [address] Lgugvfcmo/100 WBC (Bld)11.8 %NormalMormonism HospitalComment on above:Performed By: #### UHCG, UAWMIC, UTOX2 #### [place] [address] Candtyqfwnl/100 WBC (Bld)76.2 %NormalMormonism HospitalComment on above:Performed By: #### UHCG, UAWMIC, UTOX2 #### [place] [address] RTIAt3.0 /100 YPOIdhimu0Slwrlbkq HospitalComment on above:Performed By: #### UHCG, UAWMIC, UTOX2 #### [place] [address] Jzamdcaj mean volume Entitic volume (Bld)10.6 fLNormal9.0-12.7 [facility] HospitalComment on above:Performed By: #### UHCG, UAWMIC, UTOX2 #### [place] [address] Asomersvu #/vol (Bld)191 10*3/cZYtzzgg745-176Pztykxqe Hospital Comment on above:Performed By: #### UHCG, UAWMIC, UTOX2 #### [place] [address] AVW #/vol (Bld)4.31 10*6/uLNormal3.90-5.20Lutriverview health institute HospitalComment on above:Performed By: #### UHCG, UAWMIC, UTOX2 #### [place] [address] ZGQ #/vol (Bld)9.08 10*3/uLNormal3.70-11.00Lutcarondelet st. joseph's hospitalan HospitalComment on above:Performed By: #### UHCG, UAWMIC, UTOX2 #### [place] [address] Eogf Metabolic Panelon 93-22-4071Ukvbhsf mass conc3.6 g/dLLow3.9-4.9 [facility] HospitalComment on above:Performed By: #### UHCG, UAWMIC, UTOX2 #### [place] [address] SFL enzyme act/jmg992 U/VMrdcgl22-919Ncldzanx HospitalComment on above:Performed By: #### UHCG, UAWMIC, UTOX2 #### [place] [address] ULC enzyme act/vol38 U/LNormal7-38Lutriverview health institute HospitalComment on above: Performed By: #### MARKCG, UAWMIC, UTOX2 #### [place] [address] Rotxt gap molar conc11 mmol/LNormal9-18Lutriverview health institute HospitalComment on above:Performed By: #### UHCG, UAWMIC, UTOX2 #### [place] [address] CEG enzyme act/vol51 U/LQijp41-45Rcatxzfr HospitalComment on above: Performed By: #### UHCG, UAWMIC, UTOX2 #### [place] [address] Bslhndigv mass conc0.3 mg/dLNormal0.2-1.3Mormonism HospitalComment on above:Performed By: #### UHCG, UAWMIC, UTOX2 #### [place] [address] Pbtsmdr mass conc9.1 mg/dLNormal8.5-10.2Luthdignity health east valley rehabilitation hospital HospitalComment on above:Performed By: #### UHCG, UAWMIC, UTOX2 #### [place] [address] Attcockb molar gjfl694 mmol/XKiycwz66-950Unposclb HospitalComment on above:Performed By: #### UHCG, UAWMIC, UTOX2 #### [place] [address] KV5 molar conc24 mmol/VBvhtbf13-50Pgkdxvub HospitalComment on above: Performed By: #### UHCG, UAWMIC, UTOX2 #### [place] [address] Eqllrkgala mass conc0.88 mg/dLNormal0.58-0.96Lutriverview health institute Hospital Comment on above:Performed By: #### UHCG, UAWMIC, UTOX2 #### [place] [address] xVPW- Amer.>60Normal>60Lutriverview health institute HospitalComment on above: Performed By: #### UHCG, UAWMIC, UTOX2 #### [place] [address] BKQ/1.73 sq M predicted among non-blacks MDRD vol rate/area (S/P/Bld)mL/min/{1.73_m2}Normal>60Lutheran HospitalComment on above:Result Comment: eGFR (Estimated GFR) Units of measure: [...] the eGFR may not accurately reflect actual GFR.Performed By: #### UHCG, UAWMIC, UTOX2 #### [place] [address] Vtxyzgn mass ofhq964 mg/cDKydm27-81Stumihqx HospitalComment on above:Performed By: #### UHCG, UAWMIC, UTOX2 #### [place] [address] Ozucysqva molar conc4.1 mmol/LNormal3.7-5.1Lmercy hospital HospitalComment on above:Performed By: #### UHCG, UAWMIC, UTOX2 #### [place] [address] Goftekl mass conc5.6 g/dLLow6.3-8.0M[facility]onism HospitalComment on above:Performed By: #### UHCG, UAWMIC, UTOX2 #### [place] [address] Bgtwnb molar ygsg707 mmol/GJznkbs591-760Miyvxsop HospitalComment on above:Performed By: #### UHCG, UAWMIC, UTOX2 #### [place] [address] Bqkp nitrogen mass conc9 mg/dLNormal7-21M[facility]on[facility] HospitalComment on above:Performed By: #### UHCG, UAWMIC, UTOX2 #### [place] [address] Nofhscqgfqp 20-50-8524Qyjslhwli mass conc2.4 mg/dLHigh1.7-2.3 [facility] Medical CenterComment on above:Performed By: #### UHCG, UAWMIC, UTOX2 #### [place] [address] AGVHPQFLda 57-09-7064Iunvply mass concHNO ID: [id number] Author: Lian Aparicio Service: ? Author Type: Physician Type: Progress Notes Filed: 10/20/2018 9:49 PM Note Text: [facility] - General Progress Note KAREN SOLIS : 1970 AGE: 48 SEX: F CSN: [id number] HOSP SVC: PSYR LOCATION: [facility] ATTENDING PHYSICIAN: Bill Patten M.D. DATE OF [...] Date - Chronic obstructive pulmonary disease (COPD) ([facility]) Social History Socioeconomic History Marital status: Unknown [...] radial No edema Lian Aparicio M.D. Internal MedicineNoDetwiler Memorial HospitalPhosphoruson 37-72-4121Zsllyoddb mass conc4.4 mg/dLNormal2.7-4.8Lutriverview health institute HospitalComment on above:Performed By: #### UHCG, UAWMIC, UTOX2 #### [place] [address] [place] [address] [facility] 38-06-6035ZLHHNN HEALTHHNO ID: [id number] Author: Katy (Therapist) Ct Service: Art Therapy [...] back of her poem. SIGNATURE: BUNNY Dean, [facility] PATIENT NAME: Karen Solis DATE: August 25, 2018 TIME: 3:45 [facility] ID: [id number] Author: Lashell (Therapist) Britton Service: Art Therapy [...] happy she is alive. SIGNATURE: Lashell Jarquin [facility] ATR PATIENT NAME: Karen Solis DATE: August 25, 2018 TIME: 1:38 [facility] [id number] Author: Katy (Therapist) Ct Service: Art Therapy [...] music and the groups. SIGNATURE: Katy Fofana, [facility], [facility] PATIENT NAME: Karen Solis DATE: August 25, 2018 TIME: 11:24 [facility] 37-02-5064Xrjyiae mass conc HNO ID: [id number] Author: Padilla MoctezumaRn) MANI Lewis Service: Nursing Author Type: Registered Nurse Type: Nursing Progress Note Filed: 08/25/2018 6:56 AM Note Text: Nursing Progress Note Patient Name: Karen Solis Patient Location: [address]/[place] [address]* Daily Note:[id number] At beginning of shift pt observed to [...] This note was completed by: Padilla Lewis [facility] [id number] HEALTHHNO ID: [id number] Author: RASHMI Alanis Service: Recreational Therapy Author [...] Solis DATE: August 24, 2018 TIME: 3:36 [facility] ID: [id number] Author: Gifty De Luna (Lsw) Service: Art Therapy Author Type: Art Therapist Type: Allied Health Filed: 08/24/2018 5:06 PM Note Text: GROUP PROGRESS NOTE SERVICE DATE: 08/24/2018 SERVICE TIME: 2:45 PM Length (minutes): 120 Attendance: Attended 3/ to Full Participation Level: [...] group. SIGNATURE: Gifty De Luna LPC, ATR, SALES DEVELOPMENT ASSOCIATE PATIENT NAME: Karen Solis DATE: August 24, 2018 TIME: 4:49 [facility] ID: [id number] Author: Cathy Lauren-Adriana Corley, Therapist Service: Art Therapy Author Type: [...] Solis DATE: August 24, 2018 TIME: 2:06 PMNormalRiverview Hospital ID: [id number] Author: Gifty De Luna (Lsw) Service: Art [...] her sobriety but plans to go to [facility] and meetings. SIGNATURE: Gifty De Luna LPC,ATR, SALES DEVELOPMENT ASSOCIATE PATIENT NAME: Karen Solis DATE: August 24, 2018 TIME: 1:12 PMNormalLutheran HospitalHepatitis [facility]c [facility] Panelon 70-74-4329XMaOm NegativeNormalNegativeLutheran HospitalComment on above:Performed By: #### UHCG, UAWMIC, UTOX2 #### [place] [address] Kot B Core Ab,TotalNegativeNormalNegativeLutheran HospitalComment on above:Performed By: #### UHCG, UAWMIC, UTOX2 #### [place] [address] Egwh[place] C Ab IANegativeNormalNegativeLutheran HospitalComment on above:Performed By: #### UHCG, UAWMIC, UTOX2 #### [facility] [address] [place] [address] YelI Surface Ab,QualNegativeNormalNegativeLutheran HospitalComment on above:Result Comment: NEGATIVEPerformed By: #### UHCG, UAWMIC, UTOX2 #### [address] [address] RRRBYWN PROGon 96-30-9296Vynkxhu mass concHNO ID: [id number] Author: Padilla (Rn) MANI Lewis Service: Nursing Author Type: Registered Nurse Type: Nursing Progress Note Filed: 08/24/2018 7:01 AM Note Text: Nursing Progress Note Patient Name: Karen Solis Patient Location: [address]/[place] [address]* Daily Note:[id number] At beginning of shift pt observed to [...] 98 %. This note was completed by: Nicky JacobsenDetwiler Memorial Hospital PROGRESSon 17-11-5386Bhdxolu mass concHNO ID: [id number] Author: Lian Aparicio Service: ? Author Type: Physician Type: Progress Notes Filed: 10/17/2018 11:37 PM Note Text: [facility] - General Progress Note KAREN SOLIS : 1970 AGE: 48 SEX: F CSN: [id number] [facility]: [facility] LOCATION: [facility] ATTENDING PHYSICIAN: Bill Patten M.D. DATE OF [...] Date - Chronic obstructive pulmonary disease (COPD) ([facility]) Social History Socioeconomic History Marital status: Unknown [...] reviewed and negative. Most recent labs reviewed [facility] consultants notes reviewed Most recent images [...] radial No edema Lian Aparicio M.D. Internal MedicineMount St. Mary Hospitalyphilis IgG with Confon 08-24-2018 Syphilis IgG<0.2NormalOhio State University Wexner Medical CenterComment on above:Result Comment: Antibody index is interpreted as follows: Non reactive SPECIMENS <=0.8 Weak reactive SPECIMENS 0.9 to 5.9 Reactive SPECIMENS >=6.0Performed By: #### UHCG, UAWMIC, UTOX2 #### [place] [address] Kpwhszch IgG, QualNonreactiveNoEssex County Hospital Comment on above:Result Comment: No serological evidence of infection with T. pallidum.Performed By: #### UHCG, [facility], OHOX2 #### [place] [address] FD LUMBAR 2V AP/LATon 76-02-3254SN LUMBAR 2V AP/LAT* * *Final Report* * * DATE OF [...] Left-sided convex curvature of the lumbar spine. System Sales Consultant: SONNY Transcribe Date/Time: Aug 24 2018 9:30A Dictated by : ARMAND EVANS MD This examination was interpreted and the report reviewed and electronically signed by: ARMAND EVANS MD on Aug 24 2018 9:33AM EST [id number] Area Hospital [id number] HEALTHHNO ID: [id number] Author: Cathy oMctezumaThe Medical Center-Carolinas Continuecare Hospital At Kings MountainBlack Hess Service: Art Therapy Author Type: Art [...] to feel little better. SIGNATURE: Cathy Corley [facility] PATIENT NAME: Karen Solis DATE: August 23, 2018 TIME: 5:33 [facility] ID: [id number] Author: Moncho Hollins (Chaplain) Service: Spiritual Care Author Type: Record Clerk Salesperson Type: Allied Health Filed: 08/23/2018 12:24 PM [...] Solis DATE: August 23, 2018 TIME: 12:23 [facility] SystemHNO ID: [id number] Author: Gifty Kaplan) Calixto Service: Art Therapy Author Type: Art Therapist Type: Allied Health Filed: 08/23/2018 11:16 AM Note Text: GROUP PROGRESS NOTE SERVICE DATE: 08/23/2018 SERVICE TIME: 9:30 AM Length (minutes): 60 Attendance: Sleeping Participation Level: Did Not Attend GROUP PARTICIPATION: Group Topics: Community Meeting: Reflective Quotes, Symptom AND Mood Check-In and Treatment Progress SIGNATURE: Gifty De Luna, ELOY,ATR, SALES DEVELOPMENT ASSOCIATE PATIENT NAME: Karen Solis DATE: August 23, 2018 TIME: 11:15 [facility] 56-38-5854Zwsiuim mass concHNO ID: [id number] Author: Patsy Juarez Service: General Internal Medicine [...] edema, clubbing or skin discoloration. MEDICATION: Current Facility-Administered Medications Medication Dose Route Frequency - cholecalciferol [...] (Patients 3 to 64 years) (PF) (FLUZONE 2018-) 0.5 mL INTRAMUSCULAR ONCE (IMMUNIZATION) - escitalopram [...] SIGNATURE: Patsy Juarez MD DATE: August 23, 2018[facility] 78-72-8834Mpmperf mass conc HNO ID: [id number] Author: Lian Aparicio Service: ? Author Type: Physician Type: Progress Notes Filed: 10/18/2018 10:26 PM Note Text: [facility] - General Progress Note KAREN SOLIS : 1970 AGE: 48 SEX: F CSN: [id number] [facility]: YR LOCATION: [facility] ATTENDING PHYSICIAN: Bill Patten M.D. DATE OF [...] reviewed and negative. [facility] Most recent [...] pedal / radial Lian Aparicio M.D. Internal MedicineVibra Specialty Hospital [id number] HEALTH HNO ID: [id number] Author: Gifty De Luna (Lsw) Service: Art [...] therapist attempted to assess. Pt last on [facility] 2012. Therapist will continue to encourage her to attend groups once she is awake/alert. SIGNATURE: Gifty De Luna, ELOY,ATR, SALES DEVELOPMENT ASSOCIATE PATIENT NAME: Karen Solis DATE: August 21, 2018 TIME: 1:48 PM PAGER/CONTACT #:[facility] ID: [phone] Author: Gifty De Luna (Lsw) Service: Art Therapy Author Type: Art Therapist Type: Allied Health Filed: 08/21/2018 2:09 PM Note Text: GROUP PROGRESS NOTE SERVICE DATE: 08/21/2018 SERVICE TIME: 01:45 PM Length (minutes): 15 Attendance: Sleeping Participation Level: Did Not Attend GROUP PARTICIPATION: Group Topics: Art Therapy: Directive - [employer] SIGNATURE: Gifty ELOY De LunaATR, SALES DEVELOPMENT ASSOCIATE PATIENT NAME: Karen Solis DATE: August 21, 2018 TIME: 2:08 [facility] ID: [id number] Author: Gifty De Luna (Lsw) Service: Art Therapy Author Type: Art Therapist Type: Allied Health Filed: 08/21/2018 11:22 AM Note Text: GROUP PROGRESS NOTE SERVICE DATE: 08/21/2018 SERVICE TIME: 11:00 AM Length (minutes): 30 Attendance: Sleeping Participation Level: Did Not Attend GROUP PARTICIPATION: Group Topics: Community Resources: Alcoholics Anonymous SIGNATURE: Gifty JohnsonELOY cordero,ATR, SALES DEVELOPMENT ASSOCIATE PATIENT NAME: Karen Solis DATE: August 21, 2018 TIME: 11:22 [facility] ID: [id number] Author: Gifty RhiannaElvinNany Calixto Service: Art Therapy Author Type: Art Therapist Type: Allied Health Filed: 08/21/2018 9:43 AM Note Text: GROUP PROGRESS NOTE SERVICE DATE: 08/21/2018 SERVICE TIME: 9:15 AM Length (minutes): 15 Attendance: Sleeping Participation Level: Did Not Attend GROUP PARTICIPATION: Group Topics: Community Meeting: Reflective Quotes, Symptom AND Mood Check-In and Treatment Progress SIGNATURE: Gifty De LunaELOY,ATR, SALES DEVELOPMENT ASSOCIATE PATIENT NAME: Karen Solis DATE: August 21, 2018 TIME: 9:43 [facility] and Differentialon [id number] Baso 0.05 k/uLNormal<0.11[facility] HospitalComment on above:Performed By: #### CBCDIF, ALCO, CMP, MG1 #### [place] [address] Qne Mono0.69 k/uLNormal<0.87[facility]on[facility] HospitalComment on above: Performed By: #### CBCDIF, ALCO, CMP, MG1 #### [place] [address] Akf Neut3.91 k/uLNormal1.45-7.50M[facility]on[facility] HospitalComment on above: Performed By: #### CBCDIF, ALCO, CMP, MG1 #### [place] [address] Xozpuspnv/100 WBC (Bld)0.8 %NormalOhio State University Wexner Medical CenterComment on above: Performed By: #### CBCDIF, ALCO, CMP, MG1 #### [place] [address] Scgyprcwdhj #/vol (Bld)0.12 10*3/uLNormal<0.46[facility] Comment on above:Performed By: #### CBCDIF, ALCO, CMP, MG1 #### [place] [address] Ybvkjwikqhh/100 WBC (Bld)1.8 %NormalOhio State University Wexner Medical CenterComment on above:Performed By: #### CBCDIF, ALCO, CMP, MG1 #### [place] [address] Tcjilbrefcv distribution width Ratio (RBC)14.2 %Qbdoha59.5-15.0 [facility] CenterComment on above:Performed By: #### CBCDIF, ALCO, CMP, MG1 #### [place] [address] Zjjbzshjnt Volume Fraction (Bld)47.2 %High36.0-46.0[facility] Comment on above:Performed By: #### CBCDIF, ALCO, CMP, MG1 #### [place] [address] Opwisoijkt mass conc (Bld)17.0 g/zXAftl08.5-15.5[facility] Comment on above:Performed By: #### CBCDIF, ALCO, CMP, MG1 #### [place] [address] Dznesretblg #/vol (Bld)1.89 10*3/uLNormal1.00-4.00[facility] Comment on above:Performed By: #### CBCDIF, ALCO, CMP, MG1 #### [place] [address] Jnjpduzhbrl/100 WBC (Bld)28.4 %NormalOhio State University Wexner Medical CenterComment on above:Performed By: #### CBCDIF, ALCO, CMP, MG1 #### [place] [address] JKV Entitic mass (RBC)32.7 bBNzramz40.0-34.0M[facility]on[facility] HospitalComment on above:Performed By: #### CBCDIF, ALCO, CMP, MG1 #### [place] [address] ZKKU mass conc (RBC)36.0 g/vGUkrfif19.5-36.0[facility] CenterComment on above:Performed By: #### CBCDIF, ALCO, CMP, MG1 #### [place] [address] VOK Entitic volume (RBC)90.8 aJYkpvyi25.0-100.0[facility] Comment on above:Performed By: #### CBCDIF, ALCO, CMP, MG1 #### [place] [address] Oomezwume/100 WBC (Bld)10.4 %NormalMormonism HospitalComment on above:Performed By: #### CBCDIF, ALCO, CMP, MG1 #### [place] [address] Cwtmnvagacn/100 WBC (Bld)58.6 %NormalLutriverview health institute HospitalComment on above:Performed By: #### CBCDIF, ALCO, CMP, MG1 #### [place] [address] YUHBf1.0 /100 MTKLikqsa8Kmixzlkx HospitalComment on above:Performed By: #### CBCDIF, ALCO, CMP, MG1 #### [place] [address] Fcqydrdv mean volume Entitic volume (Bld)9.1 fLNormal9.0-12.7 [facility] CenterComment on above:Performed By: #### CBCDIF, ALCO, CMP, MG1 #### [place] [address] Pqclfezdr #/vol (Bld)278 10*3/wPPehjfu910-954Msvbluza Hospital Comment on above:Performed By: #### CBCDIF, ALCO, CMP, MG1 #### [place] [address] NYT #/vol (Bld)5.20 10*6/uLNormal3.90-5.20M[facility]on[facility] HospitalComment on above:Performed By: #### CBCDIF, ALCO, CMP, MG1 #### [place] [address] KVO #/vol (Bld)6.66 10*3/uLNormal3.70-11.00[facility] HospitalComment on above:Performed By: #### CBCDIF, ALCO, CMP, MG1 #### [place] [address] Mctk Metabolic Panelon 35-42-3540Exctceb mass conc4.6 g/dLNormal 3.9-4.9[facility] HospitalComment on above:Performed By: #### CBCDIF, ALCO, CMP, MG1 ####[address] [phone] enzyme act/cmb740 U/ZZibv88-138Pnakkise HospitalComment on above:Performed By: #### CBCDIF, ALCO, CMP, MG1 ####[place] [phone] enzyme act/vol31 U/LNormal7-38M[facility]onism HospitalComment on above:Performed By: #### CBCDIF, ALCO, CMP, MG1 ####[place] [phone] gap molar conc13 mmol/L Normal9-18M[facility]onism HospitalComment on above:Performed By: #### CBCDIF, ALCO, CMP, MG1 ####[place] [address] [phone] enzyme act/vol44 U/UKgws51-72Xtsyfuge HospitalComment on above:Performed By: #### CBCDIF, ALCO, CMP, MG1 ####[address] [phone] mass conc0.2 mg/dLNormal 0.2-1.3M[facility]onism HospitalComment on above:Performed By: #### CBCDIF, ALCO, CMP, MG1 ####[address] Calcium mass conc9.1 mg/dLNormal8.5-10.2[facility] HospitalComment on above: Performed By: #### CBCDIF, ALCO, CMP, MG1 ####[address] [phone] molar conc97 mmol/JWeanir48-681 [facility] HospitalComment on above:Performed By: #### CBCDIF, ALCO, CMP, MG1 ####[place] [phone] molar conc26 mmol/VGroxpg00-69Trlqjord HospitalComment on above:Performed By: #### MIRANDA EMERY CMP, MG1 ####[address] [phone] mass conc0.69 mg/dLNormal0.58-0.96[facility]ut[address] joseph's hospitalan HospitalComment on above:Performed By: #### MIRANDA EMERY CMP, MG1 ####[place] [phone]-African Amer. >60Normal>60[facility]uther[facility] HospitalComment on above:Performed By: #### MIRANDA EMERY CMP, MG1 ####[place] [address] [phone]/1.73 sq M predicted among non-blacks MDRD vol rate/area (S/P/Bld)mL/min/{1.73_m2}Normal>60Luther[facility] HospitalComment on above:Result Comment: eGFR (Estimated GFR) Units of measure: [...] the eGFR may not accurately reflect actual GFR.Performed By: #### PRASANTHDIF ALCO, CMP, MG1 ####[facility] [place] [address] [phone] mass spfj911 mg/nWQggc38-83Otuwblxf HospitalComment on above:Performed By: #### RUPERT ALCO, CMP, MG1 ####[address] [phone] molar conc3.6 mmol/LLow 3.7-5.1Lutheran HospitalComment on above:Performed By: #### PRASANTHDIF, ALCO, CMP, MG1 ####[facility] [phone] Protein mass conc7.5 g/dLNormal6.3-8.0[facility] Medical CenterComment on above: Performed By: #### CBCDIF, ALCO, CMP, MG1 ####[facility] [place] [phone] molar voyo703 mmol/HDtntwx590-625 [facility] CenterComment on above:Performed By: #### CBCDIF, ALCO, CMP, MG1 ####[facility] [place] [phone] nitrogen mass conc5 mg/dLLow7-21[facility] CenterComment on above:Performed By: #### CBCDIF, ALCO, CMP, MG1 ####[place] [address] [place] [phone] COMPLETEon [id number] COMPLETENAME : KAREN SOLIS PID : [id number] : 1970 Gender : Female Race : ORD : [id number] Procedure Date : Aug 20 2018 23:08:21 Edit Date : Aug 22 2018 10:03:53 Diagnosis:SINUS RHYTHM PROBABLE LEFT ATRIAL ABNORMALITY PROBABLE INFERIOR INFARCT, OLD BORDERLINE PROLONGED QT INTERVAL Abnormal ECG No Stemi ROSA MARIA 08/20 @ 2328 Confirmed by DO CRANE NICHOLAS ([id number]), communications editor DIONY MASCORRO ([id number]) on 08/22/2018 10:03:50 AM Ventricular Rate : 94 BPM Atrial Rate : 94 BPM P-R Interval : 196 ms QRS Duration : 82 ms Q-T Interval : 400 ms QTC Calculation(Bezet) : 500 ms P [place] : 74 degrees R [place] : 23 degrees T [place] : 46 degrees Test Reason : Pre-OP Location : 502 : LUED 5 Overread By : DO CRANE NICHOLAS Edited By : DIONY MASCORRO Referred By : , Acquired by : ,[facility] HospitalED NOTEon [id number] NOTEHNO ID: [id number] Author: Mary MoctezumaRn) MANI Quintana Service: (none) Author Type: Registered Nurse Type: ED Notes Filed: 08/21/2018 12:00 AM Note Text: Patient resting in bed, rise and fall of chest observed. Safety maintained and will continue to monitorRegency [facility] NOTEHNO ID: [id number] Author: Mary MoctezumaRn) MANI Quintana Service: (none) Author Type: Registered Nurse Type: ED Notes Filed: 08/20/2018 11:38 PM Note Text: Medication given. Patient educated on medication and verbalized understanding. Patient agreeable with POC. Will continue to monitor.[facility] NOTEHNO ID: [id number] Author: Mary MoctezumaRn) MANI Quintana Service: (none) Author Type: Registered Nurse Type: ED Notes Filed: 08/20/2018 11:26 PM Note Text: Intake at bedsideRegency Hospital [facility] West NOTEHNO ID: [id number] Author: Mary MoctezumaRn) MANI Quintana Service: (none) Author Type: Registered Nurse Type: ED Notes Filed: 08/20/2018 11:14 PM Note Text: Labs were drawn and sent.[facility] NOTEHNO ID: [id number] Author: Mary MoctezumaRn) MANI Quintana Service: (none) Author Type: Registered Nurse Type: ED Notes Filed: 08/20/2018 11:11 PM Note Text: Medication given. Patient educated on medication and verbalized understanding. Patient agreeable with POC. Will continue to monitor.[facility] NOTEHNO ID: [id number] Author: Gwendolyn MoctezumaRn) Clem Rod RN Service: Nursing Author Type: Registered Nurse Type: ED Notes Filed: 08/20/2018 10:55 PM Note Text: Clean catch urine specimen obtained and sent.[facility] NOTEHNO ID: [id number] Author: Rubén MoctezumaRn) MANI Gray Service: (none) Author Type: Registered Nurse Type: ED Notes Filed: 08/20/2018 10:53 PM Note Text: Patient has an ID Band on, family at bedside, bed in lowest locked position. Patient provided hospital gown and pants and non slip socks. Patient to restroom to provide sample at this time.NormalMormonism HospitalED PROV NOTEon 04-79-1702Dfddwtf mass concHNO ID: [id number] Author: Ramin Crane DO Service: Emergency Medicine [...] provided by: Patient, medical records and relative seismic interpreter used: No PAST MEDICAL HISTORY Diagnosis [...] Negative for myalgias. Neurological: Negative for headaches. Psychiatric/Behavioral: The patient is nervous/anxious. All other systems [...] Labs Ordered and Reviewed URINALYSIS WITH MICROSCOPIC (AK,AV,EU,FV,HL,KAY,MM,SP) - Abnormal; Notable for the following: Result Value Ref Range Color Straw (*) Yellow Hemoglobin/Blood,Ur Trace (*) Negative Leukest Trace (*) Negative All other components within normal limits URINE DRUG SCREEN (AK,AV,EU,FV,HL,KAY,MM,SP) - Abnormal; Notable for the following: Ethanol, Urine 291 (*) <11 mg/dL All other components within normal limits COMPREHENSIVE METABOLIC PANEL (AK,AV,EU,FV,HL,KAY,MM,SP) MAGNESIUM BLOOD (AK,AV,EU,FV,HL,KAY,MM,SP) ALCOHOL / ETHANOL BLOOD (AK,AV,EU,FV,HL,KAY,MM,SP) CBC + AUTO DIFF (AK,AV,EU,FV,HL,KAY,MM,SP) HCG QUALITATIVE URINE (AK,AV,EU,FV,HL,KAY,MM,SP) EKG INTERPRETATION: RHYTHM: Normal sinus rhythm at 94 beats per minute AXIS: Normal axis INTERVALS: Normal MS interval QRS COMPLEX: Normal ST SEGMENT: Normal [...] stable. SIGNATURE: DO Ramin Ventura DO 08/20/18 2347NormalLutheran HospitalEthanolon 22-73-6525Mnqsdgg mass tmqs837 mg/dLHigh<11[facility] institute HospitalComment on above:Performed By: #### CBCDIF, ALCO, CMP, MG1 #### [place] [phone] KPR Qual, Urineon 31-84-6656BUZ.beta subunit ( test) Ql (U) NegativeNormalNegativeLutriverview health institute HospitalComment on above:Performed By: #### UHCG, UAWMIC, UTOX2 #### [place] [phone] Svdnzrkkfsa 74-81-8880Pscpyaurz mass conc2.2 mg/dLNormal1.7-2.3 Mormon[facility] HospitalComment on above:Performed By: #### CBCDIF, ALCO, CMP, MG1 ####[address] [phone] PROGon 92-01-0543Urgsoro mass concHNO ID: [id number] Author: Padilla (Rn) MANI Lewis Service: Nursing Author Type: Registered Nurse Type: Nursing Progress Note Filed: 08/21/2018 6:37 AM Note Text: Nursing Progress Note Patient Name: Karen Solis Patient Location: [address] [address]* SENSITIVE ADRC Nursing Admission Note PATIENT NAME: Karen Solis SERVICE DATE: 08/21/2018 SERVICE TIME: 0415 Level of care:Inpatient Hospital Referred by: Silvia LOU 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 ALLERGIES No Known Allergies No current facility-administered medications on file prior to encounter. Current [...] Inhale 18 mcg as instructed once daily. fluticasone-salmeterol HFA 45-21 mcg/actuation inhaler Inhale 2 Puffs as instructed twice daily. Medication reconciliation Done:YES Mental status; AANDOx4, Denies Seizure, Denies BT's, Positive Black Outs Head to toe assessment: Patient presented to the [facility] dressed in a hospital gown with [...] This note was completed by: Padilla Lewis RNOhio State East Hospital Protein mass concHNO ID: [id number] Author: Padilla (Rn) MANI Lewis Service: Nursing Author Type: Registered Nurse Type: Nursing Progress Note Filed: 08/21/2018 6:30 AM Note Text: Nursing Progress Note Patient Name: Karen Solis Patient Location: [id number]/[facility]* SENSITIVE [facility] SUICIDE RISK ASSESSMENT PATIENT NAME: Karen Solis SERVICE DATE: 08/21/2018 SERVICE TIME: 409 LETHALITY FACTORS: Access to Means: Any firearms in home?No Moved a firearm recently?No Any current suicide plan not involving firearm? No Is patient an inpatient in [facility]?Yes--does any suicide plan suggest risk of harm while inpatient? No. Patient has not described any current suicide thinking or plan. Presence of a Plan or Final Arrangements: Has pt taken any actions to follow a suicide plan? No--never had a serious suicide plan. Demographic Factors: Marital Status: Ethnicity:White(Highest risk is ) Gender:female (Highest risk is [...] Presence of Meaningful Daily Activities?Yes Currently employed?No Synagogue Affiliation?Yes Therapeutic [place]: Does pt believe treatment can help his/her negative feelings?Yes History of good medication compliance in past?Yes FORMULATION OF SUICIDE RISK: low Will any interventions be undertaken to address above-listed Lethality or Protective Factors? Reduce alcohol and drug abuse Consult Pastoral Care to improve pentecostalism affiliation SIGNATURE: Padilla Lewis RN DATE: August 21, 2018 TIME: 6:27 AM Assessment adapted from Suicide Prevention Toolkit for Implementation of NPSG 15A by Joint [facility] Resources This note was completed by: Padilla Lewis RNOhio State East Hospital PROGRESSon [id number] mass concHNO ID: [id number] Author: Lian Aparicio Service: ? Author Type: Physician Type: Progress Notes Filed: 10/17/2018 7:16 PM Note Text: [facility] - General Progress Note KAREN SOLIS : 1970 AGE: 48 SEX: F CSN: [id number] [facility] LOCATION: [facility] ATTENDING PHYSICIAN: Bill Patten M.D. DATE OF [...] aerosol treatment. Lian Aparicio M.D. Internal Medicine JOYNER:[id number] /[id number] HospitalProtein mass concHNO ID: [id number] Author: Downtime Note Service: ? Author Type: ? Type: Progress Notes Filed: 08/21/2018 5:27 AM Note Text: Epic Scheduled Downtime: 08/21/2018 1:00:00 AM to 08/21/2018 5:17:00 AMNormal [facility] Medical CenterToxicology Screen,[place] [id number], UrineNegative NormalNegativeLos Alamos Medical Centerher HospitalComment on above:Result Comment: Cutoff threshold at 1000 ng/mL.Performed By: #### UHCG, UAWMIC, UTOX2 #### [place] [address] Qtxyoqdjiqzm, UrineNegativeNormalNegativeLutheran HospitalComment on above:Result Comment: Cutoff threshold at 200 ng/mL.Performed By: #### UHCG, UAWMIC, UTOX2 #### [place] [address] Okfokuhesijommn, UrNegativeNormalNegativeLutheran HospitalComment on above:Result Comment: Cutoff threshold at 200 ng/mL.Performed By: #### UHCG, UAWMIC, UTOX2 #### [place] [address] Ekqawjyevekn, UrineNegativeNormalNegativeLutheran HospitalComment on above:Result Comment: Cutoff threshold at 50 ng/mL.Performed By: #### UHCG, UAWMIC, UTOX2 #### [place] [address] Aflqvoo, UrineNegativeNormalNegativeLutheran HospitalComment on above:Result Comment: Cutoff threshold at 300 ng/mL.Performed By: #### UHCG, UAWMIC, UTOX2 #### [place] [address] Tibkjfz, Vcxio778 mg/dLHigh<11Lutheran HospitalComment on above: Performed By: #### UHCG, UAWMIC, UTOX2 #### [place] [address] Mqjehbh, UrineNegativeNormalNegativeLutheran HospitalComment on above:Result Comment: Cutoff threshold at 300 ng/mL.Performed By: #### UHCG, UAWMIC, UTOX2 #### [place] [address] Qvpxjsecf, UrineNegativeNormalNegativeLutheran HospitalComment on above:Result Comment: Cutoff threshold at 100 ng/mL. Comment: Immunoassay screen [...] on the same specimen through Client Services ([phone]) if contacted within 48 hours of initial testing. [1]Substance Abuse and Mental Health Services Administration (2012). Clinical Drug Testing in Primary Care Technical Assistance Publication Series 32. Department of Health and Human Services, [place], p.10.Performed By: #### UHCG UAWMIC, UTOX2 #### [place] [address] Vlkdohoteowzm, UrineNegativeNormalNegativeLutheran HospitalComment on above:Result Comment: Cutoff threshold at 25 ng/mL.Performed By: #### UHCG UAWMIC, UTOX2 #### [place] [address] Xfjyplojsw with Microscopicon 89-81-6837Lvxwtdgpv, UrineNegative NormalNegativeLutheran HospitalComment on above:Performed By: #### UHCG, UAWMIC, UTOX2 #### [place] [address] QbmpUEK AAOCVVVNbrgzk6Joscbcdv HospitalComment on above:Result Comment: 0Performed By: #### UHCG, UAWMIC, UTOX2 #### [place] [address] Pdxjmul Nom (U)ClearNormalClearLutheran HospitalComment on above: Performed By: #### UHCG, UAWMIC, UTOX2 #### [place] [address] Yvukb Nom (U)StrawCritically abnormalYellowLutheran HospitalComment on above:Performed By: #### UHCG, UAWMIC, UTOX2 #### [place] [address] Xrxalavksc cells LM.HPF #/area (Urine sed)SEE COMMENTNormalLutheran HospitalComment on above:Result Comment: Squamous 2-5Performed By: #### UHCG, UAWMIC, UTOX2 #### [place] [address] Jmfuwhz Ql (U)NegativeNormalNegativeLutheran HospitalComment on above:Performed By: #### UHCG, UAWMIC, UTOX2 #### [place] [address] Dfrukkdqit/Blood,UrTraceCritically abnormalNegativeLutheran Hospital Comment on above:Performed By: #### UHCG, UAWMIC, UTOX2 #### [place] [address] Rbsxraz Ql (U)NegativeNormalNegativeLutheran HospitalComment on above:Performed By: #### UHCG, UAWMIC, UTOX2 #### [place] [address] EeurvjpNsjhxExxwwuubea abnormalNegativeLutheran HospitalComment on above:Performed By: #### UHCG, UAWMIC, UTOX2 #### [place] [address] Rkxblim Ql (U)NegativeNormalNegativeLutheran HospitalComment on above:Performed By: #### UHCG, UAWMIC, UTOX2 #### [place] [address] lD (Bld)6.2Nazmbl9.5-8.0Lutheran HospitalComment on above:Performed By: #### UHCG, UAWMIC, UTOX2 #### [place] [address] Vgbkkqd mass conc (U)NegativeNormalNegativeLutheran HospitalComment on above:Performed By: #### UHCG, UAWMIC, UTOX2 #### [place] [address] HMX #/vol (U)5-6Whsvzf5-8Oexhsgsi HospitalComment on above:Performed By: #### UHCG, UAWMIC, UTOX2 #### [place] [address] Ghepbscm Weaver, Ur<=1.826Dqhvef4.005-1.030Lutheran HospitalComment on above:Performed By: #### UHCG, UAWMIC, UTOX2 #### [place] [address] Ixrjdkcfhouc Qn (U)0.0Afpabk3.2-1.0Lutheran HospitalComment on above:Performed By: #### UHCG, UAWMIC, UTOX2 #### [place] [address] TVN #/vol (Bld)8-2Dlxfgi2-4Jeoqsfln HospitalComment on above: Performed By: #### UHCG, UAWMIC, UTOX2 #### [place] [address] YPVNGVY PHYSICALon [id number] PHYSICALHNO ID: [id number] Author: Lian Aparicio Service: ? Author Type: Physician Type: HANDP Filed: 08/23/2018 4:01 PM Note Text: [facility] - History and Physical KAREN SOLIS : 1970 AGE: 48 SEX: F [facility]: [id number] [facility] LOCATION: [facility] ATTENDING PHYSICIAN: NALINI NI ADMIT DATE: 08/20/2018 [...] Date - Chronic obstructive pulmonary disease (COPD) ([facility]) Social History Socioeconomic History Marital status: Spouse [...] reviewed and negative. [facility] Most recent [...] LFTs, F/u cmp Lian Aparicio M.D. Internal MedicineOhio State East Hospital Vital Signs Date TimeVital SignValuePerforming YprygulmtIbavpszq76-79-9737 13:55-0500Body qotbnq603.18 Erika Grullon DO Work Phone: [facility]11-03-2025 13:55-0500 Body mass index (BMI) [Ratio]23.1 kg/j3Tjrrkl Grullon DO Work Phone: [facility]11-03-2025 13:55-0500 Body yxpzuk51.13 kgThomas Grullon DO Work Phone: [facility]02-11-2025 15:38-0500 Body lyoakd282.18 cmVeter[facility] Health [facility]02-11-2025 15:38-0500Body mass index (BMI) [Ratio]24.3 kg/o8JaghtrcbyVeterans Health Administration02-11-2025 15:38-0500Body voluyyljatt33.5 [degF][facility]02-11-2025 15:38-0500Body pxupyg41.3 kgVeterans Health Administration02-11-2025 15:38-0500Diastolic blood xktvooip60 mm[Hg][facility] 08-02-2024 15:38-0500Heart rate73 /minVeterans Health Administration 08-02-2024 15:38-0249DvA9% (BldA) [Mass fraction]96 %[facility]02-11-2025 15:38-0500Systolic blood milmmwsa242 mm[Hg][facility]05-17-2024 10:56-0400Body .18 cmVeterans Health Administration05-17-2024 10:56-0400Body mass index (BMI) [Ratio]23.6 kg/m2 [facility]05-17-2024 10:56-0400Body eqkdkh69.49 kg [facility]05-17-2024 10:56-0400Diastolic blood ggolswhj83 mm[Hg][facility]05-17-2024 10:56-0400Heart rate72 /min [facility]05-17-2024 10:56-0400Respiratory rate18 /min [facility]05-17-2024 10:56-1218OmX7% (BldA) [Mass fraction]99 %[facility]05-17-2024 10:56-0400Systolic blood kunzvqkk264 mm[Hg][facility]01-29-2024 13:15-0500 Body rwitic200.18 cmIsiah Purcell Other [facility]01-29-2024 13:15-0500 Body mass index (BMI) [Ratio]22.71 kg/c8NdpxvIsiah Purcell Other [place] [employer] Other 01-29-2024 13:15-0500Body tuqhoy29.77 kgIsiah Purcell Other [facility]12-20-2023 14:45-0500 Diastolic blood jexfcfgq83 mm[Hg]DO Christin Grullon Work Phone: [phone]12-20-2023 14:45-0500 Heart rate70 /Patricia Grullon Work Phone: [phone]12-20-2023 14:45-0500 Respiratory rate16 /Patricia Grullon Work Phone: [phone]12-20-2023 14:45-0500 SaO2% (BldA) [Mass fraction]96 %DO Christin Grullon Work Phone: [phone]12-20-2023 14:45-0500 Systolic blood aqajdgtf206 mm[Hg]DO Christin Grullon Work Phone: [phone])[address]12-20-2023 12:17-0500 Body cahbtstiktq78.7 [degF]DO Christin Grullon Work Phone: [phone] [place], [place] 5221112-20-2023 12:17-0500 Inhaled oxygen flow rate6 L/Patricia Grullon Work Phone: [phone])[address]12-20-2023 09:27-0500 Body tiqkcx680.64 cmDO Christin Grullon Work Phone: [phone])[address]12-20-2023 09:27-0500 Body mass index (BMI) [Ratio]23.5 kg/m2DO Christin Grullon Work Phone: [phone])[address]12-20-2023 09:27-0500 Body kgDO Christin Grullon Work Phone: 1(757)1-[address] [place], [place] 5221112-04-2023 10:15-0500 Body sfqquw358.18 cmeJjovita Purcell Other [employer] Other 12-04-2023 10:15-0500Body mass index (BMI) [Ratio] 23.02 kg/u0Jgvqi Jazzy Other [facility] [employer] Other 12-04-2023 10:15-0500Body .68 kgJejovita Purcell Other [place] [employer] Other 11-14-2023 09:20-0500Diastolic blood mm[Hg] DO Christin Grullon Work Phone: [phone] [place], [place] 6831311-14-2023 09:20-0500 Heart rate66 /Patricia Grullon Work Phone: [phone] [place], [place] 6831311-14-2023 09:20-0500 Respiratory rate16 /Patricia Grullon Work Phone: [phone] [place], [place] 6831311-14-2023 09:20-0500 SaO2% (BldA) [Mass fraction]100 %DO Christin Grullon Work Phone: 1(838)[address]11-14-2023 09:20-0500 Systolic blood elqpuudk501 mm[Hg]DO Christin Grullon Work Phone: [phone] [place], [place] 6831311-14-2023 08:42-0500 Inhaled oxygen flow rate3 L/Patricia Grullon Work Phone: 1([phone] [place], [place] 6831311-14-2023 07:59-0500 Body adzhni673.64 cmDO Christin Grullon Work Phone: 1(097)[address]11-14-2023 07:59-0500 Body dzobtg37.5 kgDO Christin Grullon Work Phone: [facility]09-26-2023 14:30-0400 Body .18 Erika Mead Other [employer] Other 09-05-2023 14:20-0400Body yvohtz368.18 cmClovis Andersen Other [employer] Other 09-05-2023 14:20-0400Body mass index (BMI) [Ratio] 23.02 kg/m2Datung Andersen Other [employer] Other 09-05-2023 14:20-0400Body .68 kgDale Andersen Other [employer] Other 09-05-2023 14:20-0400Diastolic blood hidgogin45 mm[Hg] Clovis Andersen Other [employer] Other 09-05-2023 14:20-0400Systolic blood gqsexetv715 mm[Hg] Clovis Andersen Other [employer] Other 06-16-2023 12:00-0400Body oxkwcy552.18 Jermaineingrid Mitchel Other [employer] Other 06-16-2023 12:00-0400Body mass index (BMI) [Ratio] 20.83 kg/t9Urnanx Mitchel Other [employer] Other 06-16-2023 12:00-0400Body pkmakb97.33 kgThfabio Mitchel Other [employer] Other 06-16-2023 12:00-0400Diastolic blood pkkwxapi25 mm[Hg] Christin Alcocerley Other [employer] Other 06-16-2023 12:00-0400Respiratory rate18 /minThfabio Grullon Other [employer] Other 06-16-2023 12:00-4302ZdP9% (BldA) [Mass fraction]98 % Christin Alcocerley Other [employer] Other 06-16-2023 12:00-0400Systolic blood klrjyuof212 mm[Hg] Christin Grullon Other [employer] Other 04-07-2023 11:00-0400Body kvoymv475.18 cmJustin America Other [employer] Other 04-07-2023 11:00-0400Body mass index (BMI) [Ratio] 20.36 kg/m9Gqinap [place] Other [employer] Other 04-07-2023 11:00-0400Body tentog17.97 kgJustin [place] Other [employer] Other 01-25-2023 16:30-0500Body spqofu318.18 cmThomas Mitchel Other [employer] Other 01-25-2023 16:30-0500Body mass index (BMI) [Ratio] 19.58 kg/i0Jkepvb Grullon Other [employer] Other 01-25-2023 16:30-0500Body nzefcz16.7 kgThomas Grullon Other [employer] Other 01-25-2023 16:30-0500Diastolic blood mm[Hg] Christin Grullon Other [place] [employer] Other 01-25-2023 16:30-0500Respiratory rate18 /minThfabio Grullon Other [place] [employer] Other 01-25-2023 16:30-6442TmH3% (BldA) [Mass fraction]98 % Christin Grullon Other [place] [employer] Other 01-25-2023 16:30-0500Systolic blood fcakecad993 mm[Hg] Christin Grullon Other [place] [employer] Other 01-23-2023 11:00-0500Body illkncxiyfd80.7 [degF]DO Christin Grullon Work Phone: 1(593)802-[facility]01-23-2023 11:00-0500 Diastolic blood mm[Hg]DO Christin Grullon Work Phone: 1(575)939-[facility]01-23-2023 11:00-0500 Heart rate72 /minDO Christin Grullon Work Phone: 1(813)380-[facility]01-23-2023 11:00-0500 Respiratory rate20 /minDO Christin Grullon Work Phone: 1(971)647-[facility]01-23-2023 11:00-0500 SaO2% (BldA) [Mass fraction]98 %DO Christin Grullon Work Phone: [facility]01-23-2023 11:00-0500 Systolic blood yfdrqtjj889 mm[Hg]DO Christin Grullon Work Phone: 1([phone])062-[facility]01-19-2023 16:43-0500 Body weight0 kgDO Christin Grullon Work Phone: [facility]11-28-2022 14:15-0500 Body rexlhl688.18 Erika Grullon Other [employer] Other 11-28-2022 14:15-0500Body mass index (BMI) [Ratio] 19.73 kg/o7Bamckrfabio Grullon Other [employer] Other 11-28-2022 14:15-0500Body wqdneo76.15 kgThfabio Grullon Other [employer] Other 11-28-2022 14:15-0500Diastolic blood rmiehvpj60 mm[Hg] Christin Alcocerley Other [employer] Other 11-28-2022 14:15-0500Respiratory rate18 /minThfabio Grullon Other [employer] Other 11-28-2022 14:15-6967KtI0% (BldA) [Mass fraction]99 % Christin Alcocerley Other [employer] Other 11-28-2022 14:15-0500Systolic blood yysgxqxg054 mm[Hg] Christin Grullon Other [employer] Other 11-10-2021 11:15-0500Body .18 Erika Grullon Other [employer] Other 11-10-2021 11:15-0500Body mass index (BMI) [Ratio] 17.85 kg/e0Vaqmnxfabio Grullon Other [employer] Other 11-10-2021 11:15-0500Body okpdneztioz80.8 [degF]Christin Alcocerley Other [employer] Other 11-10-2021 11:15-0500Body dimtdj22.71 kgThfabio Grullon Other [employer] Other 11-10-2021 11:15-0500Diastolic blood mm[Hg] Christin Alcocerley Other [employer] Other 11-10-2021 11:15-0500Respiratory rate16 /minThfabio Grullon Other [employer] Other 11-10-2021 11:15-7145MbM5% (BldA) [Mass fraction]100 % Christin Grullon Other [employer] Other 11-10-2021 11:15-0500Systolic blood xelmrsub161 mm[Hg] Christin Alcocerley Other [employer] Other 09-29-2021 14:15-0400Body seltnp095.18 cmThomas Mitchel Other [employer] Other 09-29-2021 14:15-0400Body mass index (BMI) [Ratio] 18.32 kg/q2Crydyyfabio Grullon Other [employer] Other 09-29-2021 14:15-0400Body nrfzwynpaor23 [degF]Christin Alcocerley Other [employer] Other 09-29-2021 14:15-0400Body lemeoz06.07 kgThfabio Grullon Other [employer] Other 09-29-2021 14:15-0400Diastolic blood vpkqnymp29 mm[Hg] Christin [facility]ull[facility] Other 09-29-2021 14:15-0400Respiratory rate16 /minChristin Grullon Other [facility] [employer] Other 09-29-2021 14:15-7396JcZ0% (BldA) [Mass fraction]98 % Christin Grullon Other [facility] Other 09-29-2021 14:15-0400Systolic blood evgwjgbo278 mm[Hg] Christin Grullon Other [facility] [employer] Other Encounters Encounter DateEncounter TypeCare ProviderFacilityStart: 04-24-2025 End: 74-81-3015bzflfsyhsqIuddmm R Grullon DO Work Phone: -[facility] OrthoStart: 04-24-2025 End: 84-97-2058Qlzdufi encounter procedureIsiah Purcell DO-[facility] Work Phone: Start: 01-23-2025 End: 99-39-3857agjgtlnnnaYyzrgkw Dagoberto Pastrana MDFacility:PM [place] Start: 11-23-2024 End: 96-74-8201Nqqnvom encounter procedureThomas Grullon DO Work Phone: [facility] Work Phone: Start: 11-23-2024 End: 10-76-1946ramrwckknjTpiosu R Grullon DO Work Phone: [facility] Work Phone: Start: 11-22-2024 End: 82-85-1681Kdstjbo encounter procedureThomas Grullon DO Work Phone: [facility] Work Phone: Start: 11-22-2024 End: 40-27-1752flabeemcgqDcqqis Porsha Grullon DO Work Phone: [facility] Work Phone: Start: 08-15-2024 End: 07-57-8199mrbofukinhRutztjd Vytautas Giedraitis MDFacility:PM [place] Start: 08-02-2024 End: 16-85-7968qkuqpwdibbWptnuovvoDelaware County Hospital Work Phone: Start: 08-02-2024 End: 40-71-6948Jwbwngv encounter procedureFormerly [facility]Pr[facility] Work Phone: Start: 05-02-2024 End: 47-71-9530vofnminuurAsaulvl Vytautas Giedraitis MDFacility:PM [place] Start: 02-15-2024 End: 07-34-6325slbzkonmrhGsltpxi Vytautas Giedraitis MDFacility:PM [place] Start: 11-09-2023 End: 60-06-6778civmfuurmuCobdwxowmDelaware County Hospital Work Phone: Start: 11-09-2023 End: 70-10-9299Cuixqje encounter procedureChely Physician GroupGUTHRI[facility] [place] Work Phone: Start: 11-06-2023 End: 49-12-2562nzmbhuappzKpgmomvhaDelaware County Hospital Work Phone: Start: 11-06-2023 End: 01-50-7922Djyvyyt encounter procedureChely Physician GroupGUTHRIE [facility] [place] Work Phone: Start: 10-14-2023 End: 16-59-6635cqhnkxgacnYkreixpyxDelaware County Hospital Work Phone: Start: 10-14-2023 End: 38-08-7295Qrpjgej encounter procedureFirriverside regional medical center Physician GroupSturgis [facility] Work Phone: Start: 31-59-0303Lfz-patient / Non-visitFormerly [facility], [facility] GroupSt[facility] Work Phone: Start: 76-19-2382Bhn-patient / Non-visitWakemed [facility] Work Phone: Start: 09-16-2023 End: 11-76-5354yqxjnzsuhcSR Christin Grullon Work Phone: [facility] Work Phone: Start: 09-16-2023 End: 10-13-4895Suzqtuj encounter procedureDO Christin Grullon Work Phone: [facility] GroupSt[facility] Work Phone: Start: 96-35-2474Izu-patient / Non-visitFirriverside regional medical center Physician GroupSturgis [facility] Work Phone: Start: 89-17-4854Hxs-patient / Non-visitDO Christin Grullon Work Phone: [facility] Work Phone: Start: 08-27-2023 End: 15-46-9351Fejydsc encounter procedureDO Christin Grullon Work Phone: [facility]ician [facility] Pain Management Work Phone: Start: 07-20-2023 End: 93-51-6404owkuppfbnkYqtwc Bailey Other [facility] Other Start: 49-99-9053Nrrrac follow up visit related to original Donnie Scal[facility] OrthopedicsStart: 07-20-2023 End: 52-88-3629Byoekhx encounter procedureDO Christin Grullon Work Phone: [facility]-Start: 06-24-2023 End: 97-09-0972ubnvdpoyowAanyh Bailey Other [employer] Other Start: 41-96-4073Gvmyancuh encounterIsiah Marilu [facility] OrthopedicsStart: 37-02-2179Kurvrt follow up visit related to original Donnie Michel [facility]opedicsStart: 06-23-2023 End: 65-13-8969xicgsuwyhvOE Christin Grullon Work Phone: [facility] Work Phone: Start: 06-23-2023 End: 59-41-5942Okypvfe encounter procedureDO Christin Grullon Work Phone: [facility] Start: 06-23-2023 End: 95-74-6882Sjruoml encounter procedureDO Christin Grullon Work Phone: [facility]ician [facility] Work Phone: Start: 06-18-2023 End: 91-03-5987ttfaiiesigPooej Bailey Other [facility] [employer] Other Start: 78-77-7201Ihptwsowb encounterIsiah RiderbroDOMINICKEric Scales OrthopedicsStart: 06-16-2023 End: 07-83-8237bnisjqcagbEytjnmvs [place] Other [facility] [employer] Other Start: 70-52-3561Qqvrjstay encounterJulee Khan [facility]icsStart: 06-10-2023 End: 83-69-0010Tzimrdmmx to same day surgery Merry Grullon Work Phone: [facility] HospitalStart: 06-09-2023 End: 18-93-8274cfyomlrlqtIvffk Bailey Other [employer] Other Start: 12-65-0391Sjrktvjce encounterIsiah Scales OrthopedicsStart: 06-08-2023(Procedure) ShortThomas Genaroriflor [facility] Surgery CenterStart: 06-08-2023 End: 49-77-2980zysulflwifSojamo Felter Other [employer] Other Start: 06-01-2023 End: 44-06-7206ebguunrdhlXY Christin Grullon Work Phone: [facility] Work Phone: Start: 06-01-2023 End: 77-15-8755Yhkaqme encounter procedureDO Christin Grullon Work Phone: [facility]-Pre-Surgical Testing Work Phone: Start: 05-26-2023 End: 15-17-0722nrmnvrqxsuBosekk Felter Other [employer] Other Start: 06-12-6912Tujxvl outpatient visit 25 minutes Christin Fontenot Pain Management [place]Start: 05-25-2023 End: 61-17-6690rpzgpvoxrrWmggi Bailey Other [employer] Other Start: 37-30-8398Qkylalqan by computer Delia Velez Family Medicine [place]Start: 96-34-0462Gxkfzgqjk for other preprocedural examinationIsiah Scales OrthopedicsStart: 05-25-2023 Office outpatient visit 40 minutesIsiah Scales OrthopedicsStart: 05-05-2023(Procedure) ShortThomas FeltMain Campus Medical Center OutPtStart: 05-05-2023 End: 75-60-4761Htubosmot to same day surgery centerDO Christin Grullon Work Phone: [facility]-Digestive Health Work Phone: Start: 05-05-2023 End: 85-43-5479nopdjzclleXS Thomas R Conley Work Phone: [facility] Work Phone: Start: 05-04-2023 End: 10-63-6125circwqlwqtTnelmt Felter Other [employer] Other Start: 66-90-5585Mpajdpqvp encounterThomas FelterLAUREN [facility] OrthopedicsStart: 04-29-2023 End: 35-95-4257pyplqhyrdoEuighd [place] Other [employer] Other Start: 96-21-5322Dnxmry outpatient visit 25 minutes Pratik Hammer [facility]opedicsStart: 04-03-2023 End: 10-85-0971bfqljiiuneFyautp [place] Other [employer] Other Start: 64-44-7972Pzfodzewr encounterJustin Harman [facility]opedicsStart: 04-02-2023 End: 81-72-3749xupecvawdtJG Christin Grullon Work Phone: [facility] Work Phone: Start: 04-02-2023 End: 77-70-5991Flvgyhc encounter procedureDO Christin Grullon Work Phone: [facility]-MRI [address] Work Phone: Start: 03-17-2023 End: 35-50-6111hmhxbasvyyXwkchu Felter Other [employer] Other Start: 10-70-4193Nfpdnc outpatient new 45 minutes Christin Fontenot Pain Management [place]Start: 57-95-2517Jwqncibvu encounter Christin Fontenot Referral CoordinatorStart: 02-24-2023 End: 35-43-4235Kxlhutl encounter procedureDO Christin Grullon Work Phone: [facility]-XRay [address] Work Phone: Start: 02-24-2023 End: 19-57-4482txtqakfhobQT Christin Grullon Work Phone: [facility] Work Phone: Start: 79-87-5245Xyyyer outpatient new 30 minutesD[facility] NeurosurgeryStart: 12-31-2022 End: 06-44-1319pzaxlsggddHiucxr Conley Other [employer] Other Start: 26-46-4471Qdwkpzlws encounterThomas MitchelB[facility] Family Medicine [place]Start: 12-22-2022 End: 14-28-6053vydxokxurvOokopo Conley Other [employer] Other Start: 95-11-1341Kctmydydm encounterThomas MitchelBANNER [facility]DER[facility] Family Medicine [place]Start: 12-05-2022 End: 91-81-9196dygyxzwirbMnvruk Conley Other [employer] Other Start: 55-08-5122Byiuza outpatient visit 15 minutes Christin GrullonEric Family Medicine [place]kyStart: 09-26-2022 End: 82-83-9603xrdrervwvbTzzaax Kelley Other [employer] Other Start: 82-21-1379Tkqvyr outpatient new 45 minutes Pratik CrossEric Scales OrthopedicsStart: 09-24-2022 End: 38-66-0987bljpcwtezlGY Christin Grullon Work Phone: [facility] Work Phone: Start: 09-24-2022 End: 14-48-4453Ceaqnfv encounter procedureDO Christin Grullon Work Phone: [facility]-[address] Work Phone: Start: 07-31-2022 End: 98-46-8078hniuruohmbZnvnkx Conley Other [employer] Other Start: 50-10-7021Aezlpvbgc encounterThCentury City HospitalyStart: 07-30-2022 End: 73-59-0874ypufzcveohWW Christin Grullon Work Phone: [facility] Work Phone: Start: 07-30-2022 End: 80-94-3781Qhsyzkm encounter procedureDO Christin Grullon Work Phone: [facility]-[address] Work Phone: Start: 07-32-0417Vxiuhtygc for preprocedural laboratory examinationPETER D [facility] Hospitaltart: 07-21-2022 End: 19-92-2311qrmhfxlwkkSNIVI D [facility]ALTHFacility:T3Ucdny: 07-18-2022 End: 90-89-8410ozbsgpownoOUKAL D [facility]ALTHFacility:S0Dxtzv: 07-18-2022 End: 79-64-5029Jneofskds for preprocedural laboratory examinationPETER D [facility]ALTHFacility:N6Kmjxu: 07-16-2022 End: 21-05-9561jxvemqxsokJlqqgn Grullon Other [employer] Other Start: 58-66-6717Chkdej outpatient visit 25 minutes [facility]onSouth[facility] CharisselabadievilleyStart: 07-14-2022 End: 76-62-9204Rwqpxuhon to same day surgery centerDO Christni Grullon Work Phone: [facility]-Ultrasound Cntr for Breast CarStart: 07-14-2022 End: 17-08-6081slxspnqdheTM Thomas R Conley Work Phone: [facility] Work Phone: Start: 07-11-2022 End: 32-88-8935syzmvtymmqGUQBZ D HIGHLANDERFacility:W3Sgrvi: 07-10-2022 End: 55-27-6972pyilranvdyDZ Christin Grullon Work Phone: [facility] Work Phone: Start: 07-10-2022 End: 44-72-0942Etkfkch encounter Rafael Grullon Work Phone: [facility] Work Phone: Start: 07-08-2022 End: 26-84-3765Wlzyruj encounter Rafael Grullon Work Phone: [facility] Work Phone: Start: 07-08-2022 End: 85-01-4694dpflukidxmXljdtf Mitchel Other [employer] Other Start: 74-58-8369Bahdnamid encounterThomas MitchelFPG Family Medicine [place]kyStart: 07-04-2022 End: 61-92-0729xsfjuqjxmhTJFOL D HIGHLANDERFacility:Z6Tnstx: 06-30-2022 End: 05-93-7979ntjzhrqscfUlvbwk Grullon Other [employer] Other Start: 59-52-4554Cdrckszxq encounterThomas ConleyFPG Family Medicine [place]kyStart: 06-25-2022 End: 36-42-2455rhcrwhsuceHBQEE D HIGHLANDERFacility:K8Xblsr: 06-24-2022 End: 18-95-1668psnwyoystiLrdxah Grullon Other [employer] Other Start: 52-94-6005Mwcjkzqke encounterJoyafabio GrullonLAUREN [facility] HospitalyStart: 06-19-2022 End: 09-39-0982Ibwntjx encounter procedureDO Christin Grullon Work Phone: [facility] Work Phone: Start: 06-03-2022 End: 68-56-9500jbylsviyxlRwimgj Mitchel Other [employer] Other Start: 73-12-0158Qxfltumxu encounterThfabio GrullonLAUREN Family Medicine PeacehealthyStart: 05-28-2022 End: 24-93-9741ntzszrftzgTNLLD D HIGHLANDERFacility:J0Ptmyd: 05-20-2022 End: 92-86-0683ptfvbamgkmOygebd Grullon Other [employer] Other Start: 57-16-1381Mvmtjknnk encounterThfabio Rosie [facility] PeacehealthyStart: 81-48-3811Jcoqyc outpatient visit 15 minutes Christin Velez [facility] HospitaluskyStart: 05-19-2022 End: 32-45-4576nwuszthhbjNU Christin Grullon Work Phone: [facility] Other Start: 05-19-2022 End: 04-86-0623Imdrogp encounter procedureDO Christin Grullon Work Phone: [facility] CtrStart: 04-30-2022 End: 57-58-2462snvvrnovslUMYXC D HIGHLANDERFacility:X3Viqfr: 04-14-2022 ambulatoryPETER D HIGHLANDERFacility:L4Kmeuu: 04-09-2022 End: 01-42-4811tnktrhhxonNSJYM D HIGHLANDERFacility:X1Ddftn: 03-27-2022 End: 17-24-2099jgozoiqxjzRPKHFPUW CULLENFacility:I8Iinbl: 03-06-2022 End: 66-56-8627enceypwaeeEMXBYP CONLEYFacility:A7Hkkth: 02-28-2022 End: 90-04-1726kadkitqhaqIGPWHC CONLEYFacility:T4Kvbic: 02-20-2022 End: 80-42-5358wqgvphhkxkXOPPUJYR CULLENFacility:A6Eoanu: 02-13-2022 End: 32-98-1059wzdadzoxwqRNKPU D [facility]ALTHFacility:A2Vnvpd: 02-10-2022 End: 94-44-8969vnmoycupokUIWWI D [facility]ALTHFacility:E4Pdqgl: 33-22-4967Smgybdomr for preprocedural cardiovascular examinationPETER D [facility] HospitalStart: 79-13-7316Youeolkwl for preprocedural laboratory examinationPETER D [facility] HospitalStart: 02-03-2022 End: 82-82-5418ytkhzjbvhkZDYNX D [facility]ALTHFacility:Y8Anxln: 02-03-2022 End: 58-35-6465Wioglidip for preprocedural cardiovascular examinationPETER D [facility]ALTHFacility:U0Qccbz: 01-08-2022 End: 01-22-1023dgczirtroyCGKVFQKX CULLENFacility:A3Lqncg: 12-27-2021 End: 67-06-2284jgnhnfqceeMYFPGQRG CULLENFacility:F9Nwkbq: 12-04-2021 End: 85-91-6469oavzkjzuqqAVIIO D [facility]ALTHFacility:X8Ieugh: 11-08-2021 End: 97-34-6041yrskgqnmthMfjdaq Grullon Other [employer] Other Start: 03-05-4802Pwvzeytfe encounterThomas ConleyFPG Family Medicine [place]kyStart: 05-01-2021 End: 66-27-4829thiogcmuhbOuldqq Grullon Other [employer] Other Start: 23-36-4714Clbhqz outpatient visit 15 minutes Christin AlcocerSabineEric [facility] SandlabadievilleyStart: 98-70-8231Nobivowbf encounter Christin AlcocerSabineEric [facility] EricayStart: 96-02-6966Wwwnhd outpatient visit 15 minutesThomas MitchelDOMINICKEric [facility] HospitalyStart: 08-28-2018 End: 91-37-5427Ofqelot encounter procedureCHRISTINE LauW. D. Partlow Developmental Center CenterStart: 08-21-2018 End: 72-55-3655Vwsbuedvbv and management of inpatientPremier Health [facility] Procedures DateProcedureProcedure DetailPerforming ClinicianStart: 51-37-0341P-ray of both knees, four viewsThfabio Grullon DO Work Phone: Start: 44-98-5055Ksts energy X-ray absorptiometry Christin Grullon [employer] Work Phone: Start: 20-25-3597Htoeyjvvo mammography of bilateral breastsTemerson Grullon DO Work Phone: Start: 83-62-9748Rcali X-ray of left shoulderDO Christin Grullon Work Phone: Start: 40-81-9073FY Shoulder Arthro RCR/Biceps Tendon (Left)DO Christin Grullon [employer] Phone: Start: 91-89-0012Zboyl anesthetic lumbar facet joint nerve blockDO Christin Grullon Work Phone: Start: 19-91-5307VHM of left shoulderDO Christin Grullon Work Phone: Start: 66-55-3946Iwybiuefafq of thoracic spineDO Christin Grullon Work Phone: Start: 20-14-0233ASL of cervical spine without contrastDO Christin Grullon [employer] Phone: Start: 66-76-4038DU pre/post mri xrayDO Christin Grullon Work Phone: Start: 45-17-2744QOO of headDO Christin Grullon Work Phone: Start: 88-62-3082Vsahszemowu of right breastDO Christin Grullon Work Phone: Start: 51-33-9992Junl needle biopsy of breast using ultrasound guidanceDO Christin Grullon Work Phone: Start: 70-69-1915Ttadlhiflqr of right breastDO Christin Grullon Work Phone: Start: 39-00-4688Egtohsgjqqplfuo of right breastDO Christin Grullon Work Phone: Start: 45-21-6041Xjgs energy X-ray absorptiometryDO Christin Grullon Work Phone: Start: 65-29-8333Owdtqwfsq mammography of bilateral breastLexiiO Christin Grullon Work Phone: Start: 25-23-2948Zatuu X-ray of left shoulderDO Christin Grullon Work Phone: Start: 11-10-3462I-ray of both kneesDO Christin Grullon Work Phone: Plan of Treatment DateCare ActivityDetailAuthorStart: 74-08-0545H-ray of both knees, four viewsXR knee BI 4VWadsworth-Rittman Hospitaltart: 97-83-1403TJ Knee - bilateral 4 ViewsWadsworth-Rittman Hospitaltart: 31-11-6779SmlvhtrqbWadsworth-Rittman Hospitaltart: 34-78-8957HxqundvvfWadsworth-Rittman Hospitaltart: 64-59-7868DrmhbozflVeterans Health AdministrationAdenosine monophosphate.cyclic [Moles/volume] in Serum or PlasmaKindred Hospital Lima Ctr Work Phone: MG Breast - bilateral ScreeningVeterans Health AdministrationPatient EducationFelter Diagnostic BlockKindred Hospital Lima Ctr Work Phone: Patient referralKindred Hospital Lima [facility]tr Work Phone: Rheumatoid factor [Units/volume] in Serum or Plasma [facility] Work Phone: [facility] Immunizations Immunization DateImmunizationNotesCare XnycthwqGilefoli15-21-2727jpvpeaats, injectable, quadrivalent, preservative Venita Purcell Other [facility]12-01-2021COVID-19 mRNA, Comirnaty (Pfizer)DO Christin Grullon Work Phone: [facility]09-29-2021Kenalog -40 mgThfabio Mitchel Other [place] [facility] Other [id number] Vaccine Pfizer - Documentation Purposes OnlyChristin Grullon Other [facility]04-08-2021COVID-19 Vaccine Pfizer - Documentation Purposes OnlyChristin Grullon Other [facility]03-05-2019 pneumococcal polysaccharide vaccine, 23 valentThfabio Grullon Other [facility] Payers DatePayer CategoryPayerPolicy [id number] p589ch1b-7b0t-900v-[id number]-[id number]81-69-2270Cjaduns0003690 2..1.370152.3.579.2.76755-92-1107Jxewprd2635736 2..1.197407.3.579.2.08107-15-3095Dvtnkhe7789622 2..1.704543.3.579.2.02301-78-3466Clsanpc4283049 2..1.491458.3.579.2.19052-97-5169Hfmamvu3480642 2..1.544930.3.579.2.67418-69-9612Ebqsdrl7364967 2.16.840.1.569626.3.579.2.89364-63-6482Wbujjir0844123 2.16.840.1.131941.3.579.2.38699-68-6302Ptnpgve3209380 2.16.840.1.444003.3.579.2.38146-94-4108Kqrmsyr9390550 2.16.840.1.300024.3.579.2.29358-00-8362Ujsvwit2261876 2.16.840.1.798141.3.579.2.44979-64-3904Acptaph7614218 2..840.1.288351.3.579.2.58681-83-1884Jwxmftd6428466 2..840.1.840768.3.579.2.95799-58-1101Cmlwwxq9530674 2.16.840.1.517464.3.579.2.61826-48-5568Bcclwnd2442183 2.16.840.1.721390.3.579.2.70804-57-2324Ywaqjjm3938181 2.16.840.1.945599.3.579.2.23744-61-5400Bgyebnv0375759 2.16.840.1.646029.3.579.2.45064-23-3399Fiwrgcw3216995 2.16.840.1.397719.3.579.2.17673-31-3175Mxxcqtd9704707 2.16.840.1.784282.3.579.2.27823-38-7940Edrkjty2210167 2.16.840.1.095145.3.579.2.28221-01-3638Qryzxdv053460073 2.16.840.1.812769.3.579.2.87534-29-3807Tudehdt541046052 2..1.070269.3.579.2.50159-42-0081Gkvquan974722466 2..1.450968.3.579.2.00556-88-6600Vgvnsge966946200 2..1.273363.3.579.2.78905-48-2422Kzutkyz528458536957 2..1.237411.19 Yglappa53754444352 h3o3c61a-nt4i-9i87-61z0-y4il11487q06ReipriuETO208D96130 791sj0e8-d6aj-4l84-vc7z-dl17653133t7Bjhoqnz306151971 hmcu2v08-487a-5kv4-z38q-28r52nse652aOdqhkin82351632 2.0.1.574442.3.579.2.957Ipbptqd03609834 2..1.256649.3.579.2.531 Yutvvtf40648872 2..1.201525.3.579.2.531 Social History DateTypeDetailFacilityTobacco smoking status NHISUnknown if ever smokedKindred Hospital Lima CtrStart: 77-93-3277Arb [facility]igned [facility] Assigned At BirthSex Assigned At [facility] Other Start: 2021 End: 97-32-8272Wyhbrby smoking status NHISEx-smoker (finding)[facility]23 End: 17-73-2100Ewxgykh smoking status NHISSmoker (finding)[facility] 11-06-2023 End: 80-03-4814Ewlctvd smoking status NHISCurrent Light tobacco smokerWadsworth-Rittman Hospitaltart: 08-02-2024 End: 35-72-4613UmhSrhqba (finding)[facility] Medical Equipment Procedure CodeEquipment CodeEquipment Original TextEquipment IdentifierDates Tendon/ligament bone anchor, bioabsorbable [id number] FDAStart: 06-10-2023 Goals DatePatient GoalDesired Activity/State Clinical Notes 03-20-2021 to 04-24-2025 Note Date & KgbjSffrCrppghfi24-89-9875 Evaluation note* Diagnosis Onset Date Resolution Status Admit Date MCL sprain of right knee acuteNov2024 1:29pm [facility] Work Phone: [phone] 985-265601-29-2024 Evaluation note* Encounter Date Diagnosis Assessment Notes Treatment Notes Treatment Clinical Notes Jun, Status post arthroscopy of left [...] follow up in 6 weeks for reevaluation. Jun,rthritis of left acromioclavicular joint (ICD-10 - M19.012) Jun,Subacromial impingement of left shoulder (ICD-10 - M75.42) Jun,dhesive capsulitis of left shoulder (ICD-10 - M75.02) [facility] Other 01-03-2024 Evaluation note* Encounter Date Diagnosis Assessment Notes Treatment Notes Treatment Clinical Notes Jun, Other specified postprocedural s tates (ICD-10 - Z98.890) [facility] Other 01-02-2024 Evaluation note* Encounter Date Diagnosis Assessment Notes Treatment Notes Treatment Clinical Notes Jun, Status post arthroscopy of left [...] arm. Patient will follow-up in 4 weeks. Jun,rthritis of left acromioclavicular joint (ICD-10 - M19.012) Jun,Subacromial impingement of left shoulder (ICD-10 - M75.42) Jun,dhesive capsulitis of left shoulder (ICD-10 - M75.02) [facility] Other 12-28-2023 Evaluation note* Encounter Date Diagnosis Assessment Notes Treatment Notes Treatment Clinical Notes May, Other specified postprocedural s tates (ICD-10 - Z98.890) [facility] Other 12-19-2023 Evaluation note* Encounter Date Diagnosis Assessment Notes Treatment Notes Treatment Clinical Notes May, Other specified postprocedural s tates (ICD-10 - Z98.890) [facility] Other 12-05-2023 Evaluation note* Encounter Date Diagnosis Assessment Notes Treatment Notes Treatment Clinical Notes May, 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 Risks and benefits of procedureexplained to patient; patient verbalizes understanding. Anatomy of spine discussed in detail with patient in regards to patients condition. May,ervical pain (ICD-10 - M54.2) May,hronic pain (ICD-10 - G89.29) May,OtherAbove note written by Peter Mayo MA, [facility]. Edited and approved by Dr. Christin Mead MD. [facility] Other 12-04-2023 Evaluation note* Encounter Date Diagnosis Assessment Notes Treatment Notes Treatment Clinical Notes May, Tendinopathy of left rotator cuf f (ICD-10 - M67.912) May,Nontraumatic incomplete tear of left rotator cuff (ICD-10 [...] of an irreparable rotator cuff tear, partial repair/reconstruction with dermal allograft augmentation will be considered. We discussed in detail the rehabilitation associated with this procedure, in terms of frequency andduration. We discussed the use of the sling postoperatively, and the fact that driving a motor vehicle is not advisable while in the sling. The importance of proper rehabilitation in the overall outco me of the surgery was emphasized. The amount [...] forgoing treatment altogether, and living with symptoms asthey are. The patient understood and wishes to proceed. Informed consent was obtained, questions were entertained and answered to the best of my ability. May,Subacromial impingement of left shoulder (ICD-10 - M75.42) May,ain in left shoulder (ICD-10 - M25.512) May,rthritis of left acromioclavicular joint (ICD-10 - M19.012) May, reop examination (ICD-10 - Z01.818) May,rthrosis of left acromioclavicular joint (ICD-10 - M19.012) May,iceps tendinitis of left upper extremity (ICD-10 - M75.22) [facility] Other 11-08-2023 Evaluation note* Encounter Date Diagnosis Assessment Notes Treatment Notes Treatment Clinical Notes Apr, Subacromial impingement of left shoulder (ICD-10 - M75.42) Karen returns today for follow-up of left shoulder MRI. She has completed physical therapy and has also failed and subacromial cortisone injection. At this juncture we have discussed the findings anddiagnosis as well as personally reviewed appropriate imaging and performed interpretation of related testing and examination with the patient in office today. Overall explained to the patient that I do not see any necessary surgical indications at this time but I would get a second opinion from my sports partner Dr. Purcell since she has failed to have any further improvement with her conservativeoptions. She is agreeable to this. I did offer further injections and conservative treatment at this time but the patient would like second opinion. The patient has been involved in our cooperative treatment plan and agrees to move forward with treatment at this time. Apr,Tendinopathy of left rotator cuff (ICD-10 - M67.912) MRI reviewed in detail with patient as rotator cuff degeneration. We will refer patient to Dr Purcell, sports medicine orthopedic surgeon, for further evaluation and treatment options. Continue gentlemotion and strengthening exercises in the meantime. 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 Feb,ervical pain (ICD-10 - M54.2) Feb,hronic pain (ICD-10 - G89.29) Feb,OtherAbove note written by Peter Mayo MA, [facility]. Edited and approved by Dr. Christin Mead MD.Medical decision making shows a new problem to me with further workup planned or suggested with thepotential for extensive treatment options that were considered with the most applicable given this patient's situation as noted above. Treatment options considered include a combination of physical therapy approaches, pharmacologic management, and interventional procedures. Those most applicable tothe patient were discussed at this time. Risk [...] negative findings were considered in medical decision-making. [facility] Other 09-05-2023 Evaluation note* Encounter Date Diagnosis Assessment Notes Treatment Notes Treatment Clinical Notes Feb, Cervical spondylosis (ICD-10 - M 47.812) I independently reviewed the MRI of the cervical spine and the x-ray of the cervical spine and the reports as well as the EMG and the report. There are no acute radiculopathies on the EMG. Clinicallythe patient has no weakness she gives a [...] this patient's best option at this point. Feb,rthropathy of left shoulder (ICD-10 - M19.012) Feb,Neck pain (ICD-10 - M54.2) [facility] Other 06-16-2023 Evaluation note* Encounter Date Diagnosis [...] has any difficulties with the dose change Nov,Tobacco dependence (ICD-10 - F17.200)We discussed the side effects of Wellbutrin in [...] quit she does not yet have a 92-euud-vfou history and therefore does not qualify for lung cancer screening Nov,rimary osteoarthritis of both knees (ICD-10 - M17.0)Consent was obtained and paperwork completed. Both the [...] exercises that she can do at home. [facility] Other 04-07-2023 Evaluation note* Encounter Date Diagnosis [...] move forward with treatment at this time. Sep,dhesive capsulitis of left shoulder (ICD-10 - M75.02) Sep,ain in left shoulder (ICD-10 - M25.512) Imaging reviewed with patient and family member today. We will provide an order for formal physicaltherapy. A cortisone injection was performed into the subacromial space under sterile technique. Patient tolerated the injection well with no adverse reaction. Sep,OtherSee orders for this visit as documented in the electronic medical record. [facility] Other 01-30-2023 NotePROCEDURE: XR FOOT LT MIN [...] Electronically authenticated by: HUNG ARREDONDO Date: 2022-07-21 12:57[facility]01-25-2023 Evaluation note* Encounter Date Diagnosis Assessment Notes Treatment Notes Treatment Clinical Notes Jun, Fibromyalgia affecting multiple sites (ICD-10 - M79.7) At this point fibromyalgia is certainly on the differential and we discussed the treatment options in detail today. Since she tolerated Lyrica 75 mg without any side effects we will increase to 100 mg twice a day and monitor her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
--- NOTE | 2025-05-09 20:12 | PC.NURSE ---
i gave this patient verbal and written discharge orders, and this patient voices yes to understanding these. at time of discharge this patient voices no concerns, needs and shows no signs of distress. prior to discharge i placed a leg brace on this patient right leg and verbal instruction on the use on crutches. this patient gave me positive visual return use of these crutches
== END 2025-05-09 20:11 | disposition home or self-care (01) ==
PROVIDERS: Emergency Provider Internal Medicine; PCP Family Medicine
DX: M25.561 Pain in right knee (principal); F17.210 Nicotine dependence, cigarettes, uncomplicated
CPT/HCPCS: 73562; 96372; 99284; J1885

== ENCOUNTER 2025-06-07 12:52 | Outpatient (OUT) | payer OTHER, SELFPAY ==
--- OUTSIDE RECORDS SUMMARY | 2023-12-29 06:15 | XMS_ITS ---
Author Organization [facility] in [place] Address [address] [place] [address] Care Team Providers Care Maintenance Tech Name Role Phone Robinson Davalos DO Primary Care Provider Erik Kay [phone] REASON FOR VISIT 3 month f/u Encounters Encounter Location Date Provider Diagnosis [facility] (PODIATRY) [address] [place] [address] [place] [address] 12/29/2023 Erik Clark Plan Of Treatment No Information Progress Notes * Karen MARKDOB:1970 (55 yo F)Acc No.[id number]:12/29/2023 UNLOCKED PROGRESS NOTE Follow Up Patient: Karen ROSENTHAL :?Erik Clark DPM, MSDOB:1970???Age: 53 Y???Sex:FemaleDate:4Phone:[phone]:[address] [place], [place]-[address]Veo:Robinson Davalos DO Subjective: * Chief Complaints: * 1 . 3 month f/u. * Medical History: Objective: * Vitals: Assessment: Plan: * Treatment: * * Electronic signature of Erik Clark DPM on 06/07/2025 at 12:55 PM ESTSign off status: PendingVisit Status:?N/S N/C (No Show/No Charge) * Provider: Danilo Clark DPM, MS Date: 0 12/29/2023 Generated for Printing/Faxing/eTransmitting on:?06/07/2025 12:55 PM EST
--- OUTSIDE RECORDS SUMMARY | 2024-04-12 08:15 | XMS_ITS ---
Author Organization [facility] [place] Address [address] [place] [address] Care Team Providers Care Carburetor Expert Name Role Phone Robinson Davalos DO Primary Care Provider Erik Kay [phone] REASON FOR VISIT 3 month f/u Encounters Encounter Location Date Provider Diagnosis [facility] (PODIATRY) [address] [place] [address] [place] [address] 04/12/2024 Erik Clark Left foot pain M79.672 Assessments Encounter Date Diagnosis (ICD Code) Assessment Notes Treatment Notes Treatment Clinical Notes Section Notes 04/12/2024 Left foot pain (ICD-10 - M79.672 ) Plan Of Treatment Pending Test Test Name Order Date XR Foot LT (3 views) * 04/12/2024 Progress Notes * Karen MARKDOB:1970 (55 yo F)Acc No.[id number]:04/12/2024 UNLOCKED PROGRESS NOTE Follow Up Patient: Karen ROSENTHAL :?Erik Clark DPM, MSDOB:1970???Age: 53 Y???Sex:FemaleDate:4Phone:[phone]:[address] [id number]:Robinson Davalos DO Subjective: * Chief Complaints: * 1 . 3 month f/u. * Medical History: Objective: * Vitals: Assessment: * Assessment: 1.?Left foot pain - M79.672??? Plan: * Treatment: ?Imaging: XR Foot LT (3 views) * * * Electronic signature of Erik Clark DPM on 06/07/2025 at 12:55 PM ESTSign off status: PendingVisit Status:?CANC (Cancelled) * Provider: Danilo Clark DPM, MS Date: 1 Generated for Printing/Faxing/eTransmitting on:?06/07/2025 12:55 PM EST
--- OUTSIDE RECORDS SUMMARY | 2024-05-10 09:00 | XMS_ITS ---
Author Organization [facility] [place] Address [address] [place] [address] Care Team Providers Care Health Safety Instructor Name Role Phone Robinson Davalos DO Primary Care Provider Erik Kay [phone] REASON FOR VISIT 3 month f/u Encounters Encounter Location Date Provider Diagnosis [facility] (PODIATRY) [address] [place] [address] [place] [address] 05/10/2024 Erik Clark Left foot pain M79.672 Assessments Encounter Date Diagnosis (ICD Code) Assessment Notes Treatment Notes Treatment Clinical Notes Section Notes 05/10/2024 Left foot pain (ICD-10 - M79.672 ) Plan Of Treatment Pending Test Test Name Order Date XR Foot LT (3 views) * 05/10/2024 Progress Notes * Karen MARKDOB:1970 (55 yo F)Acc No.[id number]:05/10/2024 UNLOCKED PROGRESS NOTE Follow Up Patient: Karen ROSENTHAL :?Erik Clark DPM, MSDOB:1970???Age: 54 Y???Sex:FemaleDate:4Phone:[phone]:[id number] [id number]:Robinson Davalos DO Subjective: * Chief Complaints: * 1 . 3 month f/u. * Medical History: Objective: * Vitals: Assessment: * Assessment: 1.?Left foot pain - M79.672??? Plan: * Treatment: ?Imaging: XR Foot LT (3 views) * * * Electronic signature of Erik Clark DPM on 06/07/2025 at 12:55 PM ESTSign off status: PendingVisit Status:?N/S (No-Show) * Provider: Danilo Clark DPM, MS Date: 1 07/10/2023 Generated for Printing/Faxing/eTransmitting on:?06/07/2025 12:55 PM EST
--- OUTSIDE RECORDS SUMMARY | 2025-05-30 19:41 | XMS_ITS | Continuity of Care Document ---
Author Organization [facility] Address [address] [place] [address] Phone Care Team Providers Care Tenant Selector Name Role Phone Robinson Davalos DO Primary Care Provider [phone] Isiah Purcell DO Attending Provider Robinson Davalos DO Attending Provider Care Teams Patient Care [...] Davalos DO Primary Care Provider Active Start: May 22, 2025 End: May 22, 2025ThAnnie Levine ProviderActiveStart: May 22, 2025 End: May 22, 2025 Visit Care Team Team Status: Inactive Member Role/Relationship Status Dates Robinson Davalos DO Primary Care Provider Active Start: May 24, 2025 End: May 24Annie Levine ProviderActiveStart: May 24, 2025 End: May 24, 2025 Patient Care Team Team Status: Inactive Member Role/Relationship Status Dates Robinson Davalos DO Primary Care Provider Active Start: May 30, 2025 End: May 30, 2025Robinson Davalos DOAttending ProviderActiveStart: May 30, 2025 End: May 30, 2025 Chief Complaint and Reason for Visit Chief Complaint Admit Date 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 NX April 24, 2025 1:29pm M25.561 - Pain in right knee April 1:35pm J44.9 G25.0 Z13.6 May 22, 2025 9 :37am discuss arthritis pain May 24 8:48am m79.2,m25.50 May 30, 2025 8 :28am Reason for Visit Admit Date MCL sprain of right knee April 24 1:29pm GERD (gastroesophageal reflux disease) D ec2024 8:48am Mixed hyperlipidemia May 24, 2025 8:48am Pain in joint, multiple sites May 242024 8:48am Peripheral neuropathic pain May 8:48am Allergies, Adverse Reactions, Alerts Allergen Type Severity Reaction Last Updated Verified Status Penicillins Allergy Unknown Nausea May 24, 2025 9:13am Ye s Active Social History Smoking Status Status Start Date End Date Date of Observa tion Current Light tobacco smoker August 02, 2024 3:44pm Observation Status Observation Response Date of Response Legal Sex [facility] (finding) [facility] Family History Relationship Condition Age at Onset Recorded Date/T chi father Diabetes mellitus Unknown fatherDeceasedUnknownDiabetes mellitusUnknownfatherDiabetes mellitusUnknown Problems Active Problems Problem Diagnosis/Recorded Date Onset Date Stat us Acute neck pain 2021 10:09pm Unknown Active [...] ctive Subacromial impingement of left shoulder August 30, 2 024 10:19am Unknown Active Fibromyalgia June 01, 2023 3:54pm Unknown A ctive Mixed hyperlipidemia May 24, 2025 9:52am Unknown Active Fibromyalgia affecting multiple sites November 04, 2023 [...] August 26, 2023 4:46pm Unknown Acti ve GERD (gastroesophageal reflux disease) May 24 025 9:51am Unknown Active Breast mass, right July 10, 2022 12:24pm Unknown Active Medications Medication Status Dose Units Route Directions Qty Days Refills S tart Date Stop Date End Date Reason(s) Instructions Adherence Pregabalin 150 mg capsule Discontinued 150 MG PO Twice daily 60 30 2 September 14, 2023 9:42am December 17, 2023 11:12amFibromyalgia FibromyalgiaEscitalopram Oxalate (Lexapro) 20 mg yxgobkZvdhdpxnatng16WZWHAfymh ccswino213Bqkvi 2023 11:53amSeptember 2023 9:00amBupropion Hcl 150 mg tablet extended release 24 hrDiscontinued0.ROUTE.YHGWXRE258Qhwkf 2023 7:56amMay 2023 9:58amTAKE 1 TABLET BY MOUTH EVERY DAY IN THE MORNING Trazodone 50 mg tabletDiscontinued0.ROUTE.QACEHZY057Heq 2023 10:29amJune 2023 11:25amTAKE 1 TABLET BY MOUTH EVERYDAY AT BEDTIMEPregabalin 150 mg rhgfzxeOokctytafvib242KEIYLhufk qnley08178Ryvp 27th, 2024 11:12amFebruary 2024 3:43pmFibromyalgia FibromyalgiaHydroxyzine Pamoate 50 mg amtveklPgluketrgxsf61IKBNQbeui ufpnf900 December 17, 2023 11:24amJuly 2023 7:54amTrazodone 50 mg iloxvfNwhvkgvcawnn85 MGPODaily at mbnnicd999Rqbs2023 11:24amMarch 2024 7:48amHydroxyzine Pamoate 25 mg capsuleDiscontinued0.ROUTE.YIMULBF099Zzte2023 7:54amNovember 2023 9:28amTAKE 1 CAPSULE BY MOUTH EVERY 8 HOURS NEEDED 30Escitalopram Oxalate 20 mg tabletDiscontinued0.ROUTE.SXSPGWI910Idojamjel 25th, 2024 9:00am August 02, 2024 3:43pmTAKE 1 TABLET BY MOUTH IN THE MORNINGHydroxyzine Pamoate 25 mg capsuleDiscontinued0.ROUTE.FZXRDLN048Ozuikhpo2023 9:28am August 02, 2024 4:27pmTAKE 1 CAPSULE BY MOUTH EVERY 8 HOURS NEEDED 30 Pregabalin 150 mg kblijfpSbvieouctdci095YGTSZcybb oxvoy35626Uhdguucc 30th, 2024 12:00amFebruary 2024 4:14pmFibromyalgia affecting multiple sites FibromyalgiaEscitalopram Oxalate 20 mg tabletDiscontinued0.ROUTE.[address] 2024 8:35amAugust 2024 6:58amTAKE 1 TABLET BY MOUTH IN THE MORNING Trazodone 50 mg tabletDiscontinued0.ROUTE.JGWSWDQ774Zjtus 2024 7:48am May 24, 2025 9:15amTAKE 1 TABLET BY MOUTH EVERYDAY AT BEDTIMEBuspirone 5 mg aiyiadXexiemfwmeso6XIENMmhbw foizf629Rpy 5th, 2025 11:00pmApril 24, 2025 1:58pmEscitalopram Oxalate 20 mg tabletDiscontinued0.ROUTE.[address] 2024 6:58amDecember 2024 9:14amTAKE 1 TABLET BY MOUTH IN THE MORNING Pregabalin 150 mg qulejrgSlmemcqbhzqm161HLERQvvow dailyNovant Health [facility] Centerember 2022 12:00amMarch 2023 9:44amTrazodone 50 mg DtrgrtYrwtajeuimyw87LJTJFaggiva as needed for InsomniaOctober 2020 11:00pmMay 2023 10:29amHydroxyzine Pamoate (Vistaril) 50 mg UdvabssIdqviljywoht21ZDGEEphfq dailyOctober 2020 11:00pmMay 2023 9:58amEscitalopram Oxalate (Lexapro) 20 mg Tablet Kvwjdyjncjiv90SRTIDcenp morningOctober 2020 11:00pmMarch 2023 11:53amHydrocodone-Acetaminophen 5-325 mg shkpgzHaknqbnbbqcv5LOOOCRncdu times daily as needed for bsys216Ytpgfml 2020November 2022 7:53amAcute neck pain CervicalgiaIbuprofen 800 mg dkcbfkBpltcrlyofuh491RJLXJvtjr times daily as needed for fever or jrln222Izrqtrs 2020 11:00pmNovember 2022 7:53am Ondansetron 4 mg tablet,ysqqjananxdrohTwhrxnlpjauk1TCNGZ4G as needed for nausea and scgjzdvj75Dkccwkt 2020 11:00pmNovant Health [facility] Centerember 2022 7:53am Cyclobenzaprine 10 mg pbfamkZucnovvngzxf45KTUYSvuxq times daily as needed for muscle ctkza497Riehugi 2020 11:00pmDecember 2022 4:02pmHydroxyzine Pamoate (Vistaril) 50 mg ldxvnyxWylvhqduqbqt31JHOAFcxyk dailyUty 2023 9:57amJune 2023 11:24amAlendronate (Fosamax) 70 mg EtxmyiVetmubcvgbou26EI POevery 2022 12:00amFebruary 2024 4:08pmFridays Meloxicam 15 mg henqmzCppvwcivveqm54PJZUKfqgz as needed for PainDecember 2022 12:00amMay 2023 9:58amAcetaminophen (Tylenol Extra Strength) 500 mg ExademlKgjxzgzddfzc0300EGMXP0N as needed for PainDecember 2022 12:00am April 24, 2025 1:82zzQngzgcectc-Uxkowxab-Uztdqumhcc (Breztri Aerosphere) 160-9-4.8 mcg/actuation HFA aerosol jzhssbfOwmhdz0DSTNYBLFZBMWVRyxze daily10.712 November 05, 2023 11:00pmChronic obstructive pulmonary disease Chronic obstructive pulmonary disease, unspecifiedUnknownEscitalopram Oxalate 20 mg fhmtiaBupwfepoxjrv76UWSGLrlivThifqidh 2024 3:41pmMarch 2024 8:35am Pregabalin 150 mg wcdykmsIhhsgw202AKAKFewgj times dailyFebruary 2024 3:42pmFibromyalgia FibromyalgiaUnknownOxycodone-Acetaminophen (Percocet) 5-325 mg tablet Wkiuxwhfpguu2KTDJIAuawz daily as hlaant0Oupescvm 2024 12:00am2024 9:30amAlendronate (Fosamax) 70 mg puretlBzktsz54JMUHvqdjr shjc625Ibsltrrb 2024 4:08pmFridaysUnknownAtenolol 25 mg mihwfyBmqhoimoarlb52GCXRLznmn975 August 02, 2024 12:00amNove2024 1:58pmEssential tremor Essential tremorEscitalopram Oxalate 20 mg olbdogVscfqm16LGVYCpyueNtmiufsy 3rd, 2025 9:14amUnknownTrazodone 50 mg mtsbxoYedufs39PKZDHywnm at bedtimeMay 24, 2025 9:15amUnknownOmeprazole 40 mg capsule,delayed release(DR/EC)Bhkfic71GE CDCyibq502Hdojalzk 3rd, 2025 12:00amUnknownBupropion Hcl 150 mg tablet extended release 24 boGvntfffmmnxl938YGAOQykofBgdgm 2023 11:00pmApril 2023 7:56amFreeTextSig: TAKE 1 TABLET BY MOUTH EVERY DAY IN THE MORNING FOR 30 DAYS; Note: Source Status: Unknown; Refills: 1; Qty: 90 Tablet; Provider: Anoop Bowers ( ) Immunizations Immunization Event Date Not Given Reason Dose Number [employer] Lot Number Reason(s) Given Vaccine Information Statement (VIS) Detail Administration Location COVID-19 mRNA, Comirnaty (Pfizer) September 27 COVID-19 mRNA, Comirnaty (Pfizer)October 18OVID-19 mRNA, Comirnaty (Pfizer)May 22neumococcal Polysacc. Vaccine, 23 valentMarch 2018Quadrivalent InfluenzaJanuary 2023 Medical Equipment Device Date Implanted Device Details Tendon/ligament bone anchor, bioabsorbable June 10, 2023 CASSIE: [id number] Issuing Agency: [facility] Device Id: [id number] Expiration Date: 2025-04-21 Lot Number: [id number] Procedures Procedure Date Performed Status XR knee BI 4V April 24, 2025 1:35pm comple lizbet Relevant Diagnostic Tests and/or Laboratory Data Laboratory Results Test Collection Date/Time Result Date/Time Result Interpretation Reference Range Result Comment Performing Site Corrected White Blood Count May 22, 2025 9:54am May 22, 2025 2:29pm 7.3 10*3/uL 3.8-11.6[facility] [id number] [address] [facility] [address]Ofbifknxtve WBC CountDe2024 9:54amDecemb2024 2:29pm7.3 10*3/uL3.8-11.6FR[facility] [id number] [address] [facility] [address]Yyq Blood CountDece2024 9:54amDecemb2024 2:29pm4.70 10*6/uL3.60-5.00[facility] [id number] [address] [facility] [address]PzzsyvijxjGrzlqiln 1st, 2025 9:54amDecemb2024 2:29pm 14.8 g/dL11.8-15.4[facility] [id number] [address] [facility] [address]FrgadnjkdkZxbfwral 2024 9:54amDecember 2024 2:29pm 42.9 %34.0-46.4FRiver[facility] [id number] [address] [facility] [address]Qtld Corpuscular VolumeDecember 2024 9:54amDecember 2024 2:29pm91.3 nX27-558AanjkdxcjSouthern [facility] [id number] [address] [facility] [address]Hvpo Corpuscular HemoglobinDecember 2024 9:54amDecember 2024 2:29pm31.4 pg24.7-34.3FRiverview Health [facility] [id number] [address] [facility] [address]Kndt Corpuscular Hemoglobin ConcentDecember 2024 9:54am May 22, 2025 2:29pm34.4 g/dL32.0-35.0[facility] [id number] [address] [facility] [address]Zkc Cell Distribution Widthce2024 9:54amDecember 2024 2:29pm13.6 %11.9-15.3FRiver[facility] [id number] [address] [facility] [address]Tncyemcd CountDecember 2024 9:54amDecember 2024 2:04zt485 10*3/mR018-512ZnyhmexrlSouthern [facility] [id number] [address] [facility] [address]Miuo Platelet VolumeDecember 2024 9:54amDecember 2024 2:29pm8.6 fL6.3-10.7FRiver[facility] [id number] [address] [facility] [address]Uitaurogapy (%) (Auto)May 22, 2025 9:54amDecember 2024 2:29pm72.0 %.[facility] [id number] [address] [facility] [address]Oypihujpbxx (%) (Auto)May 22, 2025 9:54amDecember 2024 2:29pm19.5 %.[facility] [id number] [address] [facility] [address]Wualzzkay (%) (Auto)May 22, 2025 9:54amDecember 2024 2:29pm6.5 %.[facility] [id number] [address] [facility] [address]Pldurmybjwx (%) (Auto)May 22, 2025 9:54amDecember 2024 2:29pm1.2 %.[facility] [id number] [address] [facility] [address]Ssgzjzdhi (%) (Auto)May 22, 2025 9:54amDecember 2024 2:29pm0.8 %.[facility] [id number] [address] [facility] [address]Hbfxddzei RBC Relative Count (auto)May 22, 2025 9:54am May 22, 2025 2:29pm0.0 /100{WBC}0-0.5FRiver[facility] [id number] [address] [facility] [address]Vfljxrhnewe # (Auto)May 22, 2025 9:54amDecember 2024 2:29pm5.2 10*3/uL1.8-7.7FR[facility] [id number] [address] [facility] [address]Vxhohrnzogb # (Auto)May 22, 2025 9:54amDecember 2024 2:29pm1.4 10*3/uL1.00-4.8[facility] [id number] [address] [facility] [address]Oviuihdxe # (Auto)May 22, 2025 9:54amDecember 2024 2:29pm0.5 10*3/uL0.0-0.8[facility] [id number] [address] [facility] [address]Wuvxnnxxyub # (Auto)May 22, 2025 9:54amDecember 2024 2:29pm0.1 10*3/uL0.0-0.45[facility] [id number] [address] [facility] [address]Xqetrudoa # (Auto)May 22, 2025 9:54amDecember 2024 2:29pm0.1 10*3/uL0.0-0.2FR[facility] [id number] [address] [facility] [address]Lvfewsejmdt Sedimentation RateDeceer 2024 8:47amDecember 2024 3:54pm15 mm/hr0-29[facility] [id number] [address] [facility] [address]Wntjwbs Levelce2024 9:54amDecember 2024 2:54pm 85 mg/zO49-358QQU recommended reference rangeRandom Glucose Reference Range is dependent on time and content of last meal. Glucose of more than 200 mg/dL in a nonstressed, ambulatory subject supports the diagnosisof Diabetes Mellitus. [facility] [id number] [address] [facility] [address]Mdvub Urea NitrogenDece2024 9:54amDeceer 2024 2:54pm14 mg/dL7-25[facility] [id number] [address] [facility] [address]EdoecrdvbhXudbxksl 2024 9:54amDecember 2024 2:54pm 0.90 mg/dL0.60-1.20[facility] [id number] [address] [facility] [address]Pyhsniuui GFR (CKD-EPI)May 22, 2025 9:54amDece2024 2:54pm> 60.0 mL/MinSouthern [facility] [id number] [address] [facility] [address]Itfclr LevelDece2024 9:54amDecember 2024 2:54pm 142 mmol/R120-719NhdvquhjzSouthern [facility] [id number] [address] [place] [address]58[address]Potassium LevelDece2024 9:54amDecember 2024 2:54pm4.5 mmol/L3.5-5.1FRiver[facility] [id number] [address] [facility] [address]Actdzvwv LevelDecember 2024 9:54amDecember 2024 2:59xm038 mmol/Q82-270WtifdfhjqSouthern [facility] [id number] [address] [facility] [address]Njqyqg Dioxide LevelDeceer 2024 9:54amDecember 2024 2:54pm28.7 mmol/L21.0-31.0[facility] [id number] [address] [facility] [address]Ucmvn Gapceer 2024 9:54amDecember 2024 2:54pm10.8 mEq/L6.0-15.0[facility] [id number] [address] [facility] [address]Lmljxos LevelDeceer 2024 9:54amDecember 2024 2:54pm 9.2 mg/dL8.6-10.3FRiver[facility] [id number] [address] [facility] [address]Apqar ProteinDecember 2024 9:54amDecember 2024 2:54pm 6.3 g/dLBelow low normal6.4-8.9[facility] [id number] [address] [facility] [address]14[address]QvdfcqrWoonbiis 2024 9:54amDecember 2024 2:54pm4.2 g/dL3.5-5.7FR[facility] [id number] [address] [facility] [address]JiszvfytOuzphkhe 2024 9:54amDecember 2024 2:54pm2.1 g/dLSouthern [facility] [id number] [address] [facility] [address]Xidbmhd/Globulin RatioDeceer 2024 9:54amDecember 2024 2:54pm2.0[facility] [id number] [address] [facility] [address]Skiws BilirubinDece2024 9:54amDece2024 2:54pm0.3 mg/dL0.3-1.0[facility] [id number] [address] [facility] [address]Vqwptgejf Amino Transf (AST/SGOT)May 22, 2025 9:54am May 22, 2025 2:54pm10 U/LBelow low yxjtpd00-98NifsrgdvsSouthern [facility] [id number] [address] [facility] [address]Kpiitkt Aminotransferase (ALT/SGPT)May 22, 2025 9:54am May 22, 2025 2:54pm7 U/L7-52[facility] [id number] [address] [facility] [address]Sfyxvutf PhosphataseDece2024 9:54amDece2024 2:54pm99 U/D27-680QtekmtsdhSouthern [facility] [id number] [address] [facility] 10[address]T-Oxdxscrs Protein, QuantitativeDece2024 8:47am May 30, 2025 2:18pm< 0.5 mg/dL0.0-0.5FRiver[facility] [id number] [address] [facility] [address]Bttxvraukka LevelDece2024 9:54amDece2024 2:78xe170 mg/dLAbove high -758Lyuy less than 200 mg/dl low riskChol 201-239 mg/dl borderline riskChol 240 mg/dl and greater high riskSouthern [facility] [id number] [address] [facility] [address]IDL CholesterolDece2024 9:54amDece2024 2:54pm37 mg/uF15-09RVK CHOL ATP-III CLASSIFICATION Cardiovascular RiskHDL > or equal to 60 mg/dL LOWHDL < 40 mg/dL [facility] [id number] [address] [facility] [address]Vaspnscjmqtkl LevelDece2024 9:54amDece2024 2:99xp961 mg/dLAbove high normal0-149TRIG ATP III CLASSIFICATIONTRIG less than 150 mg/dL NormalTRIG 150-199 mg/dL Borderline highTRIG 200-500 mg/dL High TRIG greater than 500 mg/dL Very highStandard traceable to the Center for Disease C onrtrol and Prevention (CDC) test method.[facility] [id number] [address] [facility] [address]HNI Cholesterol, CalculatedMay 22, 2025 9:54amDecember 2024 2:61nk800 mg/dLAbove high normal0-100LDL ATP III CLASSIFICATIONLDL less than 100 mg/dL OptimalLDL 100-129 mg/dL Near or above lcosrrkIRX295-669 mg/dL Borderline highLDL 160-189 mg/dL HighLDL greater than 189 mg/dL Very high [facility] [id number] [address] [facility] 462[address]XKMD CholesterolMay 22, 2025 9:54amDecember 2024 2:54pm54 mg/dLSouthern [facility] [id number] [address] [facility] [address]Nwodquicqyf/HDL RatioMay 22, 2025 9:54amDeceer 2024 2:54pm6.2<5.0[facility] [id number] [address] [facility] [address]Fvzipvq B12 LevelMay 30, 2025 8:47amDecember 2024 2:22ob589 pg/mLBelow low zfujds979-117JaqaqucodSouthern [facility] [id number] [address] [facility] [address]GkuxjpZltmcbjv 9th, 2025 8:47amDecember 2024 2:37pm5.2 ng/mLBelow low normal>5.9Folate reference range: >5.9 ng/mlThe WHO technical consultation on folate and vitamin w02owohgtjrlrni has determined that folate concentrations lessthan 4 ng/ml are considered deficient.[facility] [id number] [address] [facility] 357[address]Qjsxmif Stimulating Hormone 3rd GenMay 22, 2025 9:54am Nate 1st, 2025 3:06pm3.47 u[iU]/mL0.45-5.33[facility] [id number] [address] [facility] 7028143-Hfcewtv Vitamin D TotalDecember 2024 9:54amDecember 2024 3:19pm40.4 ng/sK74-964CLIBHXG D STATUS 25(OH)VITAMIN D RANGE (ng/mL) Deficient <20 Insufficient 20 to <07Vudkmofhyp02 to 100Reference: Mariela MF,Austyn NC, Jyoti JOYNER, et al. Evaluation,treatment, and prevention of vitamin D deficiency; an Endocrine Society clinical practice guideline. JCEM. 2010; 96(7):1911-30.[facility] [id number] [address] [facility] [address]Fhoogokj Creatinine Clearance (ChemDecember 2024 9:54am May 22, 2025 2:54pmN/[facility] [id number] [address] [facility] [address] Diagnostic Imaging Reports Author Rian Royal [facility] HospitalAuthoredNovember 2024 7:35pmReportDictated Date/TimeDictated ByStatusRadiology ReportNovember 2024 7:35pmRian Royal II MDcompleteWay[facility] [address] [place] [address] XRay Report Signed Patient: Karen Mark MR#: [id number] : 1970 Acct:[id number] Age/Sex: 55 / F ADM Date: 5 Loc: [facility] Room: Type: [facility] CLI Attending Dr: Isiah Purcell DO [...] Royal M.D. 04/24/2025 7:36 PM Dictation Location: [facility]--17 Transcribed By: [facility] 04/24/251935 Dictated By: Rian Royal II, MD 04/24/251934 Signed By: <Electronically signed by Rian Royal II, MD in [place]> 04/24/251935 Vital Signs Vital Reading Result Reference Range Collection Date/Time Height 67 [in_i] April 24, 2025 1:82htSnyxut00.13 kgNov2024 1:55pmBMI (Body Mass Index)23.1 kg/t0YjztwkrlApril 24, 2025 1:31vaRphqyv74 [in_i]May 24, 2025 9:34jkWptiiw38.41 kgDecember 2024 9:02amHeart Rate79 /tdb69-299Pvvqcosy 3rd, 2025 9:02amOxygen saturation by Pulse njvowwiq75 %95-100Decemb2024 9:02amBP Cdbsbnwo182 mm[Hg]100-140Decemb2024 9:02amBP Lsmvnoqlp29 mm[Hg] 60-100December 2024 9:02amBMI (Body Mass Index)22.2 kg/z1Xahlgrmn2024 9:02am Advance Directives Advance Directive Response Recorded Date/ Time Advance Directives No February 9:50am Insurance Providers Guarantor Karen Mark Address [address] [facility] [facility] [address]Jjmrebd Info.Home Phone: Coverage Status Update:2025 Payer Group Member ID Coverage Type Subscriber Relationship to Subscriber Effective Date Expiration Date Mel KEARNS [id number] E Gibson Id: [id number] [place] [address] Home Phone: Encounters Encounter Location(s) Arrival/Admit Date Discharge/Departure Date Discharge/Departure Disposition Provider(s) Departed Physician/ Provider Office Visit -On License Of [facility] April 24, 2025 1:29pm April 24, 2025 2:42pm Discharged to home care or self care (routine discharge) Is[facility]cell [facility], [facility] 1:35pm April 24, 2025 1:36pm Discharged to home care or self care (routine discharge) Isiah Purcell DO Departed Clinical -Lab [facility] May 22, 2025 9:37am May 22, 2025 9:38am Discharged to home care or self care (routine discharge) Robinson Davalos DO Departed Physician/ Provider Office Visit -[facility] May 24, 2025 8:48am May 24, 2025 9:33am Discharged to home care or self care (routine discharge) Robinson Davalos DO Departed Clinical Lab [facility] May 30, 2025 8:28am May 30, 2025 8:29am Discharged to home care or self care (routine discharge) Robinson Davalos DO Recent Diagnosis Onset Date Admit Date MCL sprain of right knee Unknown Novembe r 2024 1:29pm GERD (gastroesophageal reflux disease) Unknown May 24, 2025 8:48am Mixed hyperlipidemia Unknown May 8:48am Pain in joint, multiple sites Unknown De cember 2024 8:48am Peripheral neuropathic pain Unknown [facility] 2024 8:48am Assessments Diagnosis Onset Date Resolution Status Admit Date MCL sprain of right knee acuteNov2024 1:29pmGERD (gastroesophageal reflux disease)acute May 24, 2025 8:48amMixed hyperlipidemiaacuteDece2024 8:48amPain in joint, multiple sitesnoneactiveDece2024 8:48amPeripheral neuropathic painnoneactiveDece2024 8:48am Plan of Treatment Author Thania Bonner [facility] HospitalAuthoredNov2024 2:47pmDiscussed with patient and company on the [...] reevaluation. She can follow up as needed. Author Robinson Davalos [facility] HospitalAuthoredUpmc [facility] 2024 9:53amWe discussed multiple possibilities and we will start by having her stop the Fosamax for a few weeks to see if she notices any improvement. We will also obtain some additional lab work and see her back in about 2 weeks Given her increased symptoms of heartburn we will treat with PPI therapy and if her symptoms do not improve over the next 1 to 2 weeks we will send her for EGD Discussed efforts with diet and exercise at this time Future Tests Future scheduled test information is unavailable Pending Tests Test Name Ordered Date Scheduled Date Anti-Nuclear Antibody Profile May 30, 2025 8:47am PORTIA with ReflexKsceer 2024 9:26amDeceer 2024 8:47am Future Visits Future appointment information is unavailable Future Procedures Future procedure information is unavailable Future Medications Future medication information is unavailable Patient Instructions Patient instructions are unavailable
--- OUTSIDE RECORDS SUMMARY | 2025-06-07 12:55 | XMS_ITS | Clinical Summary ---
Author Organization [employer] s tem Address [id number] [address] [place] [address] Care Team Providers Care Security Rep Name Role Phone Robinson Davalos DO Primary Care Provider Social History Tobacco UseTypesPacks/DayYears UsedDateSmoking Tobacco: Never Assessed CommentsUnknownSex and Gender InformationValueDate RecordedSex Assigned at Not on fileLegal OwmJdtqnc18/16/2023 6:33 PM EDTGender IdentityNot on fileSexual OrientationNot on file Plan of Treatment Health MaintenanceDue DateLast DoneCommentsDepression Bkdeljuif60/27/1981Tobacco Ftffaslcb34/27/1981Adult BMI Ghplnhfys63/27/1987DTaP,Tdap and Td Vaccines (1 - Tdap)1988Pap Smear1990Zoster (Shingles) Vaccine (1 of 2)2019 COVID-19 Vaccine ( season)/06/2020, 10/18/2020, 09/27/2020Influenza Ndoyhvo86 Medical Devices Not on file Insurance Care Teams Team MemberRelationshipSpecialtyStart DateEnd Date Robinson Davalos DO PCP - GeneralFamily Medicine03/09/23
--- OUTSIDE RECORDS SUMMARY | 2025-06-07 12:56 | XMS_ITS | Patient Health Record ---
Author Organization [facility] in [place] Address [address] [place] [address] Care Team Providers Care Skein Inspector Name Role Phone Robinson Davalos DO Primary Care Provider Unavaila ble Allergies Allergen (clinical drug ingredient) Drug/Non Drug Allergy documented on EMR Reaction Allergy Type Onset Date Status PenicillinUnknownDrug AllergyActive Reason For Referral No Information Medications Medication SIG (Take, Route, Frequency, Duration) Notes Start Date End Date Status Lyrica UnknownVistarilUnknownLexaproUnknownFosamaxUnknownoxyCODONE-Acetaminophen 5-325 MG1 tablet as needed Orally every 6 hrs05/24/2024ctiveHYDROcodone-Acetaminophen 5-325 MG1 tablet as needed Orally every 6 hrs; Duration: 7 days10/14/2023Unknown Social History Tobacco Use: Social History Observation Description Date Details (start date - stop date) Current Smoker NA - NA Tobacco Use/Smoking Question Answer Notes Patient is a current smoker Problems Problem Type SNOMED Code ICD Code Onset Dates Problem Status W/U Status Risk Notes Problem Fibromyalgia (553187566) Fibromyalgia (M7 9.7) ActiveconfirmedProblemPseudarthrosis after fusion or arthrodesis (645141422) 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)ActiveconfirmedProblemLate effect of medical and surgical care complication (807988625)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, implant and graft, sequela (T84.9XXS)ActiveconfirmedProblemCVA - Cerebrovascular accident (335973774)CVA (cerebral vascular accident) (I63.9)ActiveconfirmedProblem Generalized anxiety disorder (62094904)ZACHARY (generalized anxiety disorder) (F41.1)ActiveconfirmedProblemOrthopedic hardware in situ (finding) (175894575) Retained orthopedic hardware (Z96.9)ActiveconfirmedProblemPain in left foot (312540220932836)Left foot pain (M79.672)ActiveconfirmedProblemLocalized, primary osteoarthritis of the ankle and/or foot (955346713)Osteoarthritis of ankle or foot, left (M19.072)ActiveconfirmedProblemInternal prosthetic device causing pain (774387462)Painful orthopaedic hardware (T84.84XA)Activeconfirmed ProblemDisuse osteoporosis (94611071)Disuse 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)Activeconfirmed ProblemArthritis of left foot (6844759713489816)Arthritis of left foot (M19.072) ActiveconfirmedProblemLocalized, primary osteoarthritis of the ankle and/or foot (417488937)Arthritis, 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)Activeconfirmed Plan Of Treatment Pending Test Test Name Order Date XR Foot LT (3 views) * 05/10/2024 XR Foot LT (3 views) * 05/24/2024 XR foot LT min 3V 05/26/2024 Insurance Providers Payer Name Payer Address Payer Phone Subscriber Number Group Number Insured Name Patient Relationship to Insured Coverage Start Date Coverage End Date [employer] [place] [employer] [address] [place] [id number] Porfirio Mark - patient is the [id number] 2022 Medical (General) History Medical History History ICD Code Arthritis of ankle or foot, degenerative , left M19.072 Neuropathy of foot, left G57.92 Dislocation of tarsometatarsal joint of left foot, sequela S93.325S Pain from implanted hardware, subsequent encounter T85.848D Exostosis of left foot M89.8X7 Osteopenia M85.80 Surgical History Surgery Date(Month/Year) left excision of nonuniton 1 st tarsometatarsal joint with removal of retained hardware and revision of 1st tarsometarsal joint fusion 01/01/2023 removal of hardware 07/21/22
--- OUTSIDE RECORDS SUMMARY | 2025-06-07 12:56 | XMS_ITS | Clinical Summary ---
Author Organization [facility] Address [address] [place] [address] Care Team Providers Care Manager Research Name Role Phone Unavailable Primary Care Provider Unavailabl e Allergies Active AllergyReactionsCriticalityNoted DateCommentsPenicillin GUnknown 01/21/2024 Medications MedicationSigDispense QuantityRefillsLast FilledStart DateEnd DateStatus oxyCODONE-acetaminophen (Percocet) 5-325 MG tablet (Schedule II Drug) TAKE 1 TABLET BY MOUTH EVERY 4 HOURS NEEDED FOR PAIN Oral for 4Active escitalopram (Lexapro) 20 MG tablet LexaproActive pregabalin (Lyrica) 150 MG capsule LyricaActive hydrOXYzine pamoate (Vistaril) 25 MG capsule VistarilActive Active Problems ProblemNoted DateDiagnosed DateLeft anterior shoulder pain01/21/2024Left arm pain01/21/20242127Vobpxr64/01/4231Wesdfhogzfa40/01/2024ervical radiculopathy 01/21/2024ervical ipqdemmcedb45/01/2024Hemiplegic migraine without status migrainosus, not cpxnnnvopgm91/01/2024 Family History Medical HistoryRelationNameCommentsDiabetesFatherRelationNameStatusComments FatherMotherAlive Social History Tobacco UseTypesPacks/DayYears UsedDateSmoking Tobacco: NeverSmokeless Tobacco: Never Tobacco Cessation:Counseling Given: Not Answered Alcohol UseStandard Drinks/WeekCommentsNever0 (1 standard drink = 0.6 oz pure alcohol)caffeine 1-2 cups per dayCommentsUnknownSex and Gender InformationValueDate RecordedSex Assigned at BirthNot on fileLegal SexFemale 09/03/2022 6:48 PM EDTGender IdentityNot on fileSexual OrientationNot on file Last Filed Vital Signs Vital SignReadingTime TakenCommentsBlood Pressure--Pulse--Temperature-- Respiratory Rate--Oxygen Saturation--Inhaled Oxygen Concentration--Ijwgan52.5 kg (118 lb)07/18/2022 12:00 PM JOGJayzbe922.6 cm (5' 6 )07/18/2022 12:00 PM ESTBody Mass Index19.05007/18/2022 12:00 PM EST Plan of Treatment Not on file Insurance
--- NOTE | 2025-06-07 13:18 | PM.CN ---
Consult Note: HPI Data of Consult Patient: known to practice within the last 3 years Consult date: 06/07/25 Requesting Physician: Kristen Calhoun NP Primary Care Provider: CHRISTIN GRULLON Consult Narrative Reason for consult: low back pain and LLE pain Narrative: Karen Mark a 55 year old female presents for evaluation of chronic back pain secondary to thoracic/lumbar spondylosis, lumbar stenosis with NC. middle and low back pain unresponsive to > 6 weeks of PT/HEP, heat, ice, tylenol, NSAIDs. no recent falls/injury. utilizing percocet PRN and pregabalin with benefit without side effects. pain today 7-8/10 in low back and LLE. notes numbness tingling to left foot. pt has been out of percocet as she was not seen in the office, notes increased pain without percocet. pt states she has been taking pregabalin, has around 4 capsules left per pt. pt notes prior left L4-5 L5-S1 TFESI provided >50% improvement greater than 3 months and she would like to repeat. since last visit she completed another 4 weeks of PT for low back pain without improvement. cc:: CC: Kristen Calhoun NP [facility] Medical History Dyspnea on exertion ?R06.09 - Other forms of dyspnea (ICD-10) Respiratory arrest (2007) ?R09.2 - Respiratory arrest (ICD-10) Pneumonia (2007) ?J18.9 - Pneumonia, unspecified organism (ICD-10) Osteopenia ?M85.80 - Other specified disorders of bone density and structure, unspecified site (ICD-10) Fibromyalgia ?M79.7 - Fibromyalgia (ICD-10) Neck pain ?M54.2 - Cervicalgia (ICD-10) Arthritis ?M19.90 - Unspecified osteoarthritis, unspecified site (ICD-10) Depression ?F32.A - Depression, unspecified (ICD-10) Chronic obstructive pulmonary disease ?J44.9 - Chronic obstructive pulmonary disease, unspecified (ICD-10) Pseudarthrosis after fusion or arthrodesis ?M96.0 - Pseudarthrosis after fusion or arthrodesis (ICD-10) Surgical History History of hysterectomy ?Z90.710 - Acquired absence of both cervix and uterus (ICD-10) H/O foot surgery ?Z98.890 - Other specified postprocedural states (ICD-10) H/O foot surgery ?Z98.890 - Other specified postprocedural states (ICD-10) Family History Other Family history of diabetes mellitus Social History Within the past year, how often did you have a drink containing alcohol: never Score interpretation: A score less than 3 is consistent with normal alcohol consumption. Smoking status: Current every day smoker What tobacco products do you use: cigarettes Packs per day: 1 Years smoked: 24 Smoking pack-years: 24.00 Non-prescribed substance use: denies use Highest level of school completed/degree received: high school graduate Little interest or pleasure in doing things: not at all Feeling down, depressed, or hopeless: not at all Meds Home Medications and Allergies Home Medications ?Medication ?Instructions ?Recorded ?Confirmed ?Type escitalopram oxalate 20 mg tablet 20 mg PO DAILY 11/30/22 05/09/25 History trazodone 50 mg tablet 50 mg PO BEDTIME 11/30/22 05/09/25 History pregabalin 150 mg capsule (Lyrica) 150 mg PO TID #90 caps 11/16/24 01/23/25 Rx oxycodone-acetaminophen 5 mg-325 1 tab PO BID PRN pain #60 tabs 02/09/25 05/09/25 Rx mg tablet (Percocet) oxycodone-acetaminophen 5 mg-325 1 tab PO BID PRN pain #60 tabs 03/13/25 Rx mg tablet (Percocet) pregabalin 150 mg capsule (Lyrica) 150 mg PO TID #90 caps 03/13/25 05/09/25 Rx oxycodone-acetaminophen 5 mg-325 1 tab PO BID PRN pain #60 tabs 04/13/25 Rx mg tablet (Percocet) pregabalin 150 mg capsule (Lyrica) 150 mg PO TID #90 caps 04/13/25 Rx Allergies Allergy/AdvReac Type Severity Reaction Status Date / Time Penicillins Allergy Severe Unknown Verified 05/09/25 18:27 Exam Constitutional Documenting provider has reviewed patient's vital signs: yes Common normals: no apparent distress, oriented x3 and alert General appearance: cooperative HENMT Common normals: normocephalic, hearing grossly normal bilaterally and moist oral mucous membranes Head and scalp: normocephalic Eye Common normals: PERRL Pupil: PERRL Neck & C-Spine Common normals: full ROM General: normal visual inspection Chest Common normals: inspection of chest normal Respiratory Common normals: normal respiratory effort, no retractions and no use of accessory muscles Back & Pelvis Thoracic spine/upper back: ROM limited, pain with ROM and thoracic spinal tenderness Lumbar spine/lower back: ROM limited, pain with ROM, lumbar spinal tenderness and straight leg raise positive left Other: positive facet loading strength 4/5 in LLE and 5/5 in RLE decreased sensation left L4,5,S1 Neuro Common normals: oriented x3 Sensorium/orientation: alert Psych Common normals: mental status grossly normal, thought process normal, cooperative, affect normal, speech normal and activity/motor behavior normal Speech: normal speech Thought process: normal thought process Results Additional Findings Additional findings: If on a controlled substance or opioids, I have checked an [place] report on this patient and there are no aberrancies noted in the prescribing history.??If on a controlled substance or opioid a drug screen was completed and reviewed within the last year, and if there has not been a drug screen completed we ordered one today to monitor higher risk, state monitored pain medication use. As part of providing excellent, safe, comprehensive care, the following was completed at our patient's visit: 1. A medication reconciliation and review to ensure accurate knowledge of current/active medications, including asking our patients to inform us about any ktre-tcf-lhcteck medications or herbal remedies/nutritional supplements/alternative remedies. 2. A review to specifically ensure our patients have had annual screening for screening for depression, screening for tobacco use, and screening for unhealthy alcohol use. For concerning screenings had a discussion with the patient, provided patient education, and recommended follow-up with primary care provider when appropriate. If patient noted with a risk of falling, they received education on strength, gait, and balance training to prevent future risk of falling. Portions of this note may have been carried over from the previous visit and updated as appropriate. Please note this office utilizes paper charting in addition to the electronic medical record. A list of current medications, vitals, and PMH is available there as the clinical staff outside of myself do not have access to [employer] charting during the clinic day operations. As part of providing quality comprehensive care the current medications, vitals, and PMH were reviewed in the paper chart. Assessment and Plan Assessment and Plan (1) Lumbar stenosis with neurogenic claudication: (2) Lumbar spondylosis: Assessment and Plan: The patient has had over 3 months of moderate to severe thoracic and lumbar pain with functional impairment and inadequate response to conservative care including NSAIDS (unless there are contraindication such as concurrent blood thinners), multiple oral or topical pain medications, and home exercise program/physical therapy.? Patient has completed >6 weeks of guided home exercise program and/or formal physical therapy program without relief of their symptoms.? I have reviewed the imaging of the lumbar spine and no red flags were identified.? The Oswestry Disability Index was completed, and the patient scored a 54%.? The patient noted the following:?? moderate to severe pain with ADLs, standing, walking, sitting, sleeping, social life, travel (3) Chronic prescription opiate use: Plan The patient has had over 3 months of moderate to severe low back and LLE pain with functional impairment and inadequate response to conservative care including NSAIDS (unless there are contraindication such as concurrent blood thinners), multiple oral or topical pain medications, and home exercise program/physical therapy.? Patient has completed >6 weeks of guided home exercise program and/or formal physical therapy program without relief of their symptoms.? I have reviewed the imaging of the lumbar spine and no red flags were identified.? The imaging reveals radiographic findings consistent with lumbar stenosis and facet arthropathy repeat left L4-5 L5-S1 TFESI under fluoroscopy update UDS today, last dose of percocet > 3 weeks and last dose of pregabalin today as she had leftovers at home refill percocet 5-325mg BID PRN moderate to severe pain. notes moderate pain relief without side effects. has failed non-opioid medications including, tylenol, motrin, tramadol, gabapentin refill/continue lyrica 150mg TID f/u 2 weeks after injection
== END 2025-06-07 12:53 | disposition home or self-care (01) ==
LOC: PM 12:52
PROVIDERS: PCP Family Medicine; Visit Provider Nurse Practitioner
DX: M48.062 Spinal stenosis, lumbar region with neurogenic claudication (principal); M47.816 Spondylosis without myelopathy or radiculopathy, lumbar region; Z79.891 Long term (current) use of opiate analgesic
CPT/HCPCS: G0463